=== PATIENT | female | born 1955 | race African-American/Black ===

== ENCOUNTER 2022-07-16 12:58 | Emergency (ER) | payer OTHER ==
--- OUTSIDE RECORDS SUMMARY | 2022-07-16 13:07 | XMS REPORT | Continuity of Care Document ---
:1955 Author Organization [facility] t Address [address] [place] [address] Care Team Providers Name Role Phone Pcp, Patient Does Not Have A Primary Care Physician [id number] Ivan Freitas Attending Clinician Unavailable Ruperto Castillo MD Attending Clinician Doctor Unassigned, [place] Attending Clinician Unavailable Only, Adc Test Attending Clinician Unavailable Octavio Adams MD Attending Clinician Radiology Attending Clinician Unavailable RADIOLOGY Attending Clinician Unavailable Ivan Freitas Admitting Clinician Unavailable Payers Payer Name Policy Type Policy Number Effective Date Expiration Date Jailene jeffries MEDICARE PART A [id number] 2006 \\T\\ B 00:00:00 MEDICAID OF [place] [id number] 2015 00:00:00 Problems Condition Condition Condition Status Onset Resolution Last Treating Co mments Source Name Details Category Date Date Treatment Clinician Date HLD HLD Disease Active Overview: Univer s (hyperlipi (hyperlipi 2-23 Formattin ity of demia) demia) 00:00: g of this [place] 00 note Medical might be Branch different from the original. 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 Allergic Allergic Disease Active Unive rs rhinitis rhinitis 2-23 ity of 00:00: [place] [id number] Medical Branch Insomnia Insomnia Disease Active Unive rs 2-23 ity of 00:00: [place] [address] Medical Branch Edema Edema Disease Active Univers 2-23 ity of 00:00: [place] [address] Medical Branch DM2 DM2 Disease Active Univers (diabetes (diabetes 2-23 [place] of mellitus, mellitus, [place] type [place] type 2[place] Subjective Subjective Disease Active U nivers tremor tremor 2-23 ity of 00:00: Medical Branch Tobacco Tobacco Disease Active Univers abuse abuse 2-23 ity of 00:00: Medical Branch Essential Essential Disease Active 2006-09 Uni vers hypertensi hypertensi 0-10 it y of [place], benign [place] Bronchitis Bronchitis Disease Active 2006-09 Overview : Univers 0-10 Formattin ity of 00:00: g of this note Medical might be Branch different from the original. 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 Clonidin Propensi Active Extra Univer s e ty to pyramidal 203 ity of adverse effects 00:00: [place] reaction 00 [facility] Social History Social Habit Start Date Stop Date Quantity Comments Source Exposure to Not sure [place] of SARS-CoV-2 (event) [facility] History of tobacco Cigarette Smoker University of use [facility] Alcohol intake 2018-07-21 2018-07-21 0 /d University of 00:00:00 00:00:00 [facility] Cigarette 2017-03-10 2017-03-10 University of pack-years 00:00:00 00:00:00 [facility] Tobacco use and 2017-03-10 2017-03-10 Never used Universit y of exposure 00:00:00 00:00:00 [facility] Tobacco Comment 2017-03-10 2017-03-10 says she quit 2 Univ ersity of 00:00:00 00:00:00 weeks ago [facility] Cigarettes smoked 2017-03-10 2017-03-10 Univers ity of current (pack per 00:00:00 00:00:00 ) - Reported Branch Sex Ass[birth year] At [birth year] Universit y of 00:00:00 00:00:00 [facility] Smoking Status Start Date Stop Date Source Smoker, current status 2017-03-10 00[facility] unknown Branch Medications Ordered Filled Start Stop Current Ordering Indication Dosage Frequency Signature Comments Components Source Medication Medication Date Date Medication? Clinician (SIG) Name Name folic 2017-09 Yes 1{tbl} Take 1 Univers acid/vit B 0-31 tablet by ity of complex and 20:09: mouth. [address] ([facility] ORAL) folic 2017-09 Yes 1{tbl} Take 1 Univers acid/vit B 0-31 tablet by ity of complex and 20:09: mouth. [address] ([facility] ORAL) folic 2017-09 Yes 1{tbl} Take 1 Univers acid/vit B 0-31 tablet by ity of complex and 20:09: mouth. [address] ([facility] ORAL) folic 2017-09 Yes 1{tbl} Take 1 Univers acid/vit B 0-31 tablet by ity of complex and 20:09: mouth. [address] ([facility] ORAL) folic 2017-09 Yes 1{tbl} Take 1 Univers acid/vit B 0-31 tablet by ity of complex and 20:09: mouth. [address] ([facility] ORAL) folic 2017-09 Yes 1{tbl} Take 1 Univers acid/vit B 0-31 tablet by ity of complex and 20:09: mouth. [address] ([facility] ORAL) isosorbide 2017-09 Yes 60mg Take 60 mg U nivers mononitrate 0-31 by mouth ity of (IMDUR) 60 19:49: daily. [place] mg 24 hr 19 Medical tablet Branch carvedilol 2017-09 Yes 25mg Take 25 mg U nivers (COREG) 25 0-31 by mouth 2 ity of mg tablet 19:49: (two) [place] [address] times Medical daily with Branch meals. aspirin 81 2017-09 Yes 81mg Take 81 mg U nivers mg tablet 0-31 by mouth ity of 19:49: daily. [place] [address] Medical Branch diazepam 2017-09 Yes 10mg Take 10 mg Uni vers (VALIUM) 10 0-31 by mouth ity of mg tablet 19:49: every [place] 19 evening. Medical Branch docusate 2017-09 Yes 100mg Take 100 Univ ers (COLACE) 0-31 mg by ity of 100 mg 19:49: mouth [place] capsule 19 daily. Medical Branch VIT B CMPLX 2017-09 Yes 1{tbl} Take 1 Tab Univers 3/FA/VIT 0-31 by mouth ity of C/BIOTIN 19:49: daily. [place] (DAQUAN-THADDEUS 19 Medical RX ORAL) Branch amLODIPine 2017-09 Yes 2.5mg Take 2.5 Un mayo 2.5 mg 0-31 mg by ity of tablet 19:49: mouth [place] 19 daily. Medical Branch ALBUTEROL 2017-09 Yes Inhale as Uni vers SULFATE 0-31 needed. ity of (PROAIR HFA 19:49: [place] INHALE) 19 Medical Branch isosorbide 2017-09 Yes 60mg Take 60 mg U nivers mononitrate 0-31 by mouth ity of (IMDUR) 60 19:49: daily. [place] mg 24 hr 19 Medical tablet Branch carvedilol 2017-09 Yes 25mg Take 25 mg U nivers (COREG) 25 0-31 by mouth 2 ity of mg tablet 19:49: (two) [place] [address] times Medical daily with Branch meals. aspirin 81 2017-09 Yes 81mg Take 81 mg U nivers mg tablet 0-31 by mouth ity of 19:49: daily. [place] Medical Branch diazepam 2017-09 Yes 10mg Take 10 mg Uni vers (VALIUM) 10 0-31 by mouth ity of mg tablet 19:49: every [place] 19 evening. Medical Branch docusate 2017-09 Yes 100mg Take 100 Univ ers (COLACE) 0-31 mg by ity of 100 mg 19:49: mouth [place] capsule 19 daily. Medical Branch VIT B CMPLX 2017-09 Yes 1{tbl} Take 1 Tab Univers 3/FA/VIT 0-31 by mouth ity of C/BIOTIN 19:49: daily. [place] (DAQUAN-THADDEUS 19 Medical RX ORAL) Branch amLODIPine 2017-09 Yes 2.5mg Take 2.5 Un mayo 2.5 mg 0-31 mg by ity of tablet 19:49: mouth [place] 19 daily. Medical Branch ALBUTEROL 2017-09 Yes Inhale as Uni vers SULFATE 0-31 needed. ity of (PROAIR HFA 19:49: [place] INHALE) 19 Medical Branch isosorbide 2017-09 Yes 60mg Take 60 mg U nivers mononitrate 0-31 by mouth ity of (IMDUR) 60 19:49: daily. [place] mg 24 hr 19 Medical tablet Branch carvedilol 2017-09 Yes 25mg Take 25 mg U nivers (COREG) 25 0-31 by mouth 2 ity of mg tablet 19:49: (two) [place] 19 times Medical daily with Branch meals. aspirin 81 2017-09 Yes 81mg Take 81 mg U nivers mg tablet 0-31 by mouth ity of 19:49: daily. [place] 19 Medical Branch diazepam 2017-09 Yes 10mg Take 10 mg Uni vers (VALIUM) 10 0-31 by mouth ity of mg tablet 19:49: every [place] 19 evening. Medical Branch docusate 2017-09 Yes 100mg Take 100 Univ ers (COLACE) 0-31 mg by ity of 100 mg 19:49: mouth [place] capsule 19 daily. Medical Branch VIT B CMPLX 2017-09 Yes 1{tbl} Take 1 Tab Univers 3/FA/VIT 0-31 by mouth ity of C/BIOTIN 19:49: daily. [place] (DAQUAN-THADDEUS 19 Medical RX ORAL) Branch amLODIPine 2017-09 Yes 2.5mg Take 2.5 Un mayo 2.5 mg 0-31 mg by ity of tablet 19:49: mouth [place] 19 daily. Medical Branch ALBUTEROL 2017-09 Yes Inhale as Uni vers SULFATE 0-31 needed. ity of (PROAIR HFA 19:49: [place] INHALE) 19 Medical Branch isosorbide 2017-09 Yes 60mg Take 60 mg U nivers mononitrate 0-31 by mouth ity of (IMDUR) 60 19:49: daily. [place] mg 24 hr 19 Medical tablet Branch carvedilol 2017-09 Yes 25mg Take 25 mg U nivers (COREG) 25 0-31 by mouth 2 ity of mg tablet 19:49: (two) [place] 19 times Medical daily with Branch meals. aspirin 81 2017-09 Yes 81mg Take 81 mg U nivers mg tablet 0-31 by mouth ity of 19:49: daily. [place] [address] Medical Branch diazepam 2017-09 Yes 10mg Take 10 mg Uni vers (VALIUM) 10 0-31 by mouth ity of mg tablet 19:49: every [place] 19 evening. Medical Branch docusate 2017-09 Yes 100mg Take 100 Univ ers (COLACE) 0-31 mg by ity of 100 mg 19:49: mouth [place] capsule 19 daily. Medical Branch VIT B CMPLX 2017-09 Yes 1{tbl} Take 1 Tab Univers 3/FA/VIT 0-31 by mouth ity of C/BIOTIN 19:49: daily. [place] (DAQUAN-THADDEUS 19 Medical RX ORAL) Branch amLODIPine 2017-09 Yes 2.5mg Take 2.5 Un mayo 2.5 mg 0-31 mg by ity of tablet 19:49: mouth [place] 19 daily. Medical Branch ALBUTEROL 2017-09 Yes Inhale as Uni vers SULFATE 0-31 needed. ity of (PROAIR HFA 19:49: [place] INHALE) 19 Medical Branch isosorbide 2017-09 Yes 60mg Take 60 mg U nivers mononitrate 0-31 by mouth ity of (IMDUR) 60 19:49: daily. [place] mg 24 hr 19 Medical tablet Branch carvedilol 2017-09 Yes 25mg Take 25 mg U nivers (COREG) 25 0-31 by mouth 2 ity of mg tablet 19:49: (two) [place] 19 times Medical daily with Branch meals. aspirin 81 2017-09 Yes 81mg Take 81 mg U nivers mg tablet 0-31 by mouth ity of 19:49: daily. [place] 19 Medical Branch diazepam 2017-09 Yes 10mg Take 10 mg Uni vers (VALIUM) 10 0-31 by mouth ity of mg tablet 19:49: every [place] 19 evening. Medical Branch docusate 2017-09 Yes 100mg Take 100 Univ ers (COLACE) 0-31 mg by ity of 100 mg 19:49: mouth [place] capsule 19 daily. Medical Branch VIT B CMPLX 2017-09 Yes 1{tbl} Take 1 Tab Univers 3/FA/VIT 0-31 by mouth ity of C/BIOTIN 19:49: daily. [place] (DAQUAN-THADDEUS 19 Medical RX ORAL) Branch amLODIPine 2017-09 Yes 2.5mg Take 2.5 Un mayo 2.5 mg 0-31 mg by ity of tablet 19:49: mouth [place] 19 daily. Medical Branch ALBUTEROL 2017-09 Yes Inhale as Uni vers SULFATE 0-31 needed. ity of (PROAIR HFA 19:49: [place] INHALE) 19 Medical Branch isosorbide 2017-09 Yes 60mg Take 60 mg U nivers mononitrate 0-31 by mouth ity of (IMDUR) 60 19:49: daily. [place] mg 24 hr 19 Medical tablet Branch carvedilol 2017-09 Yes 25mg Take 25 mg U nivers (COREG) 25 0-31 by mouth 2 ity of mg tablet 19:49: (two) [place] 19 times Medical daily with Branch meals. aspirin 81 2017-09 Yes 81mg Take 81 mg U nivers mg tablet 0-31 by mouth ity of 19:49: daily. [place] 19 Medical Branch diazepam 2017-09 Yes 10mg Take 10 mg Uni vers (VALIUM) 10 0-31 by mouth ity of mg tablet 19:49: every [place] 19 evening. Medical Branch docusate 2017-09 Yes 100mg Take 100 Univ ers (COLACE) 0-31 mg by ity of 100 mg 19:49: mouth [place] capsule 19 daily. Medical Branch VIT B CMPLX 2017-09 Yes 1{tbl} Take 1 Tab Univers 3/FA/VIT 0-31 by mouth ity of C/BIOTIN 19:49: daily. [place] (DAQUAN-THADDEUS 19 Medical RX ORAL) Branch amLODIPine 2017-09 Yes 2.5mg Take 2.5 Un mayo 2.5 mg 0-31 mg by ity of tablet 19:49: mouth [place] 19 daily. Medical Branch ALBUTEROL 2017-09 Yes Inhale as Uni vers SULFATE 0-31 needed. ity of (PROAIR HFA 19:49: [place] INHALE) 19 Medical Branch folic 2017-09 Yes 1{tbl} Take 1 Univers acid/vit B 0-31 tablet by ity of complex and 15:09: mouth. [place] C 43 Medical (DAQUAN-THADDEUS Branch ORAL) folic 2017-09 Yes 1{tbl} Take 1 Univers acid/vit B 0-31 tablet by ity of complex and 15:09: mouth. [facility] s C 43 Medical (DAQUAN-THADDEUS Branch ORAL) isosorbide 2017-09 Yes 60mg Take 60 mg U nivers mononitrate 0-31 by mouth ity of (IMDUR) 60 14:49: daily. [place] mg 24 hr 19 Medical tablet Branch carvedilol 2017-09 Yes 25mg Take 25 mg U nivers (COREG) 25 0-31 by mouth 2 ity of mg tablet 14:49: (two) [place] 19 times Medical daily with Branch meals. aspirin 81 2017-09 Yes 81mg Take 81 mg U nivers mg tablet 0-31 by mouth ity of 14:49: daily. [place] [address] Medical Branch diazepam 2017-09 Yes 10mg Take 10 mg Uni vers (VALIUM) 10 0-31 by mouth ity of mg tablet 14:49: every [place] 19 evening. Medical Branch docusate 2017-09 Yes 100mg Take 100 Univ ers (COLACE) 0-31 mg by ity of 100 mg 14:49: mouth [place] capsule 19 daily. Medical Branch VIT B CMPLX 2017-09 Yes 1{tbl} Take 1 Tab Univers 3/FA/VIT 0-31 by mouth ity of C/BIOTIN 14:49: daily. [place] (DAQUAN-THADDEUS 19 Medical RX ORAL) Branch amLODIPine 2017-09 Yes 2.5mg Take 2.5 Un mayo 2.5 mg 0-31 mg by ity of tablet 14:49: mouth [place] 19 daily. Medical Branch ALBUTEROL 2017-09 Yes Inhale as Uni vers SULFATE 0-31 needed. ity of (PROAIR HFA 14:49: [place] INHALE) 19 Medical Branch isosorbide 2017-09 Yes 60mg Take 60 mg U nivers mononitrate 0-31 by mouth ity of (IMDUR) 60 14:49: daily. [place] mg 24 hr 19 Medical tablet Branch carvedilol 2017-09 Yes 25mg Take 25 mg U nivers (COREG) 25 0-31 by mouth 2 ity of mg tablet 14:49: (two) [place] 19 times Medical daily with Branch meals. aspirin 81 2017-09 Yes 81mg Take 81 mg U nivers mg tablet 0-31 by mouth ity of 14:49: daily. [place] 19 Medical Branch diazepam 2017-09 Yes 10mg Take 10 mg Uni vers (VALIUM) 10 0-31 by mouth ity of mg tablet 14:49: every [place] 19 evening. Medical Branch docusate 2017-09 Yes 100mg Take 100 Univ ers (COLACE) 0-31 mg by ity of 100 mg 14:49: mouth [place] capsule 19 daily. Medical Branch VIT B CMPLX 2017-09 Yes 1{tbl} Take 1 Tab Univers 3/FA/VIT 0-31 by mouth ity of C/BIOTIN 14:49: daily. [place] (DAQUAN-THADDEUS 19 Medical RX ORAL) Branch amLODIPine 2017-09 Yes 2.5mg Take 2.5 Un mayo 2.5 mg 0-31 mg by ity of tablet 14:49: mouth [place] 19 daily. Medical Branch ALBUTEROL 2017-09 Yes Inhale as Uni vers SULFATE 0-31 needed. ity of (PROAIR HFA 14:49: [place] INHALE) 19 Medical Branch glipiZIDE Yes TK 1 T PO Uni vers XL 10 mg 24 9-27 QD ity of hr tablet 00:00: [place] Medical Branch glipiZIDE Yes TK 1 T PO Uni vers XL 10 mg 24 9-27 QD ity of hr tablet 00:00: [place] Medical Branch glipiZIDE Yes TK 1 T PO Uni vers XL 10 mg 24 9-27 QD ity of hr tablet 00:00: Medical Branch glipiZIDE Yes TK 1 T PO Uni vers XL 10 mg 24 9-27 QD ity of hr tablet 00:00: Medical Branch glipiZIDE Yes TK 1 T PO Uni vers XL 10 mg 24 9-27 QD ity of hr tablet 00:00: Medical Branch glipiZIDE Yes TK 1 T PO Uni vers XL 10 mg 24 9-27 QD ity of hr tablet 00:00: Medical Branch glipiZIDE Yes TK 1 T PO Uni vers XL 10 mg 24 9-27 QD ity of hr tablet 00:00: Medical Branch glipiZIDE Yes TK 1 T PO Uni vers XL 10 mg 24 9-27 QD ity of hr tablet 00:00: Medical Branch furosemide Yes TK 1 T PO Un mayo 40 mg 8-29 QD ity of tablet 00:00: [place] [facility] furosemide 2018-0 Yes TK 1 T PO Un mayo 40 mg 8-29 QD ity of tablet 00:00: [place] [facility] furosemide 2018-0 Yes TK 1 T PO Un mayo 40 mg 8-29 QD ity of tablet 00:00: [place] [facility] furosemide 2017-0 Yes TK 1 T PO Un mayo 40 mg 8-29 QD ity of tablet 00:00: [place] [facility] furosemide 2017- Yes TK 1 T PO Un mayo 40 mg 8-29 QD ity of tablet 00:00: [place] [facility] furosemide Yes TK 1 T PO Un mayo 40 mg 8-29 QD ity of tablet 00:00: [place] [facility] furosemide Yes TK 1 T PO Un mayo 40 mg 8-29 QD ity of tablet 00:00: [place] [facility] furosemide Yes TK 1 T PO Un mayo 40 mg 8-29 QD ity of tablet 00:00: [place] [facility] fluticasone 2014-0 Yes 2{spray Use 2 Un mayo (FLONASE) 5-20 } Sprays in ity o f 50 00:00: each [place] mcg/actuati 00 nostril Medic al on nasal daily. Branch spray fluticasone Yes 2{spray Use 2 Un mayo (FLONASE) 5-20 } Sprays in ity o f 50 00:00: each [place] mcg/actuati 00 nostril Medic al on nasal daily. Branch spray fluticasone 0 Yes 2{spray Use 2 Un [place]o (FLONASE) 5-20 } Sprays in ity o f 50 00:00: each [place] mcg/actuati 00 nostril Medic al on nasal daily. Branch spray fluticasone 0 Yes 2{spray Use 2 Un mayo (FLONASE) 5-20 } Sprays in ity o f 50 00:00: each [place] mcg/actuati 00 nostril Medic al on nasal daily. Branch spray fluticasone 0 Yes 2{spray Use 2 Un mayo (FLONASE) 5-20 } Sprays in ity o f 50 00:00: each [place] mcg/actuati 00 nostril Medic al on nasal daily. Branch spray fluticasone Yes 2{spray Use 2 Un mayo (FLONASE) 5-20 } Sprays in ity o f 50 00:00: each [place] mcg/actuati 00 nostril Medic al on nasal daily. Branch spray fluticasone Yes 2{spray Use 2 Un mayo (FLONASE) 5-20 } Sprays in ity o f 50 00:00: each [place] mcg/actuati 00 nostril Medic al on nasal daily. Branch spray fluticasone Yes 2{spray Use 2 Un mayo (FLONASE) 5-20 } Sprays in ity o f 50 00:00: each [place] mcg/actuati 00 nostril Medic al on nasal daily. Branch spray HYDROcodone 2013-09 Yes 1{tbl} Take 1 Tab Univers -acetaminop 2-04 by mouth ity of hen (NORCO) 00:00: every 8 Jv as 10-325 mg 00 (eight) Medical tablet hours. Branch HYDROcodone 2013-09 Yes 1{tbl} Take 1 Tab Univers -acetaminop 2-04 by mouth ity of hen (NORCO) 00:00: every 8 Jv as 10-325 mg 00 (eight) Medical tablet hours. Branch HYDROcodone 2013-09 Yes 1{tbl} Take 1 Tab Univers -acetaminop 2-04 by mouth ity of hen (NORCO) 00:00: every 8 Jv as 10-325 mg 00 (eight) Medical tablet hours. Branch HYDROcodone 2013-09 Yes 1{tbl} Take 1 Tab Univers -acetaminop 2-04 by mouth ity of hen (NORCO) 00:00: every 8 Jv as 10-325 mg 00 (eight) Medical tablet hours. Branch HYDROcodone 2013-09 Yes 1{tbl} Take 1 Tab Univers -acetaminop 2-04 by mouth ity of hen (NORCO) 00:00: every 8 Jv as 10-325 mg 00 (eight) Medical tablet hours. Branch HYDROcodone 2013-09 Yes 1{tbl} Take 1 Tab Univers -acetaminop 2-04 by mouth ity of hen (NORCO) 00:00: every 8 Jv as 10-325 mg 00 (eight) Medical tablet hours. Branch HYDROcodone 2013-09 Yes 1{tbl} Take 1 Tab Univers -acetaminop 2-04 by mouth ity of hen (NORCO) 00:00: every 8 Jv as 10-325 mg 00 (eight) Medical tablet hours. Branch HYDROcodone 2013-09 Yes 1{tbl} Take 1 Tab Univers -acetaminop 2-04 by mouth ity of hen (NORCO) 00:00: every 8 Jv as 10-325 mg 00 (eight) Medical tablet hours. Branch simvastatin Yes 10mg Take 1 Tab Univers (ZOCOR) 10 8-15 by mouth ity o f mg tablet 00:00: at [place] 00 bedtime. Medical Branch simvastatin Yes 10mg Take 1 Tab Univers (ZOCOR) 10 8-15 by mouth ity o f mg tablet 00:00: at [place] 00 bedtime. Medical Branch simvastatin Yes 10mg Take 1 Tab Univers (ZOCOR) 10 8-15 by mouth ity o f mg tablet 00:00: at [place] 00 bedtime. Medical Branch simvastatin Yes 10mg Take 1 Tab Univers (ZOCOR) 10 8-15 by mouth ity o f mg tablet 00:00: at [place] 00 bedtime. Medical Branch simvastatin Yes 10mg Take 1 Tab Univers (ZOCOR) 10 8-15 by mouth ity o f mg tablet 00:00: at [place] 00 bedtime. Medical Branch simvastatin Yes 10mg Take 1 Tab Univers (ZOCOR) 10 8-15 by mouth ity o f mg tablet 00:00: at [place] 00 bedtime. Medical Branch simvastatin Yes 10mg Take 1 Tab Univers (ZOCOR) 10 8-15 by mouth ity o f mg tablet 00:00: at [place] 00 bedtime. Medical Branch simvastatin Yes 10mg Take 1 Tab Univers (ZOCOR) 10 8-15 by mouth ity o f mg tablet 00:00: at [place] 00 bedtime. Medical Branch carisoprodo Yes 350mg Take 350 U nivers l (SOMA) 4-01 mg by ity of 350 mg 00:00: mouth [place] tablet 00 every 8 Medical (eight) Branch hours. carisoprodo Yes 350mg Take 350 U nivers l (SOMA) 4-01 mg by ity of 350 mg 00:00: mouth [place] tablet 00 every 8 Medical (eight) Branch hours. carisoprodo 2013-0 Yes 350mg Take 350 U nivers l (SOMA) 4-01 mg by ity of 350 mg 00:00: mouth [place] tablet 00 every 8 Medical (eight) Branch hours. carisoprodo 2013-0 Yes 350mg Take 350 U nivers l (SOMA) 4-01 mg by ity of 350 mg 00:00: mouth [place] tablet 00 every 8 Medical (eight) Branch hours. carisoprodo 2013-0 Yes 350mg Take 350 U nivers l (SOMA) 4-01 mg by ity of 350 mg 00:00: mouth [place] tablet 00 every 8 Medical (eight) Branch hours. carisoprodo 2013-0 Yes 350mg Take 350 U nivers l (SOMA) 4-01 mg by ity of 350 mg 00:00: mouth [place] tablet 00 every 8 Medical (eight) Branch hours. carisoprodo 2013-0 Yes 350mg Take 350 U nivers l (SOMA) 4-01 mg by ity of 350 mg 00:00: mouth [place] tablet 00 every 8 Medical (eight) Branch hours. carisoprodo 2012-0 Yes 350mg Take 350 U nivers l (SOMA) 4-01 mg by ity of 350 mg 00:00: mouth [place] tablet 00 every 8 Medical (eight) Branch hours. Vital Signs Vital Name Observation Time Observation Value Comments Source Systolic blood 2021-06-20 19:14:00 168 [facility] Diastolic blood 2021-06-20 19:14:00 78 [facility]Hg[facility] 2021-06-20 19:14:00 84 /min [facility] Body temperature 2021-06-20 19:14:00 36.78 Huong [facility] Respiratory rate 2021-06-20 19:14:00 18 /min [facility] Oxygen saturation in 2021-06-20 19:14:00 99 /min [facility] Arterial blood by [facility] Pulse oximetry Branch Body weight 2021-06-20 16:14:[address] [facility] BMI 2021-06-20 16:14:00 36.73 kg/m2 [facility] Procedures Procedure Date / Time Performing Clinician Source Performed [id number] 2021-11-11 00:00:00 VUPH [facility] [id number] 2021-11-08 00:00:00 VUPH [facility] [id number] 2021-11-06 00:00:00 VUPH [facility] [id number] 2021-11-05 00:00:00 VUPH [facility] [id number] 2021-11-05 00:00:00 ISSHU [facility] [id number] 2021-11-04 00:00:00 VUPH [facility] [id number] 2021-11-03 00:00:00 VUPH [facility] POCT GLUCOSE 2021-06-20 19:04:00 Ruperto Castillo [facility] (AUTOMATED) [facility] TROPONIN I 2021-06-20 17:03:00 Ruperto Castillo [facility] COMP. METABOLIC PANEL 2021-06-20 17:03:00 Ruperto Castillo [facility] ([id number]) [facility] PROTHROMBIN TIME / INR 2021-06-20 17:03:00 Ruperto Castillo [facility] ACTIVATED PARTIAL 2021-06-20 17:03:00 Ruperto Castillo [facility] THRMPLAS NEENA [facility] CBC WITH DIFF 2021-06-20 17:02:00 Ruperto Castillo [facility] COVID-19 (ID NOW RAPID 2021-06-20 17:02:00 Ruperto Castillo [facility] TESTING) [facility] LACTIC ACID WHOLE BLOOD 2021-06-20 17:01:00 Ruperto Castillo [facility] NOTICE OF PRIVACY 2021-06-20 15:46:14 Doctor Unassigned, No Univ [facility] PRACTICES Name Medical Branch CONSENT/REFUSAL FOR 2021-06-20 15:45:38 Doctor [facility]assigned, [facility] Name Medical Branch CT THORAX WO CONTRAST 2020-07-23 17:26:12 [facility] [place] [facility] WO 2020-07-02 15:28:37 [facility] 2020-07-02 14:59:10 Requisition, Paper Univ ersity [facility] XR KNEE 3 VW RIGHT 2020-07-02 13:53:51 Requisition, Paper Univer car[facility] ASSIGNMENT OF BENEFITS 2020-07-02 13:22:22 Doctor Unassigned, No [facility] Encounters Start End Encounter Admission Attending Care Care Encounter Source Date/Time Date/Time Type Type Clinicians Facility Department ID 2021-07-22 Emergency [facility] [id number] Univers 03:02:46 ity of [facility] 2021-11-04 2021-11-11 Inpatient EM [facility] [id number] [facility] 13:10:00 21:23:00 22 [facility] 2021-06-20 2021-06-20 Emergency Castillo, [facility] [id number] Univers 11:16:00 14:18:00 Ruperto Hawley [id number] i ty of [place] [id number] [place] [id number] [facility] 084 Branch 2021-06-20 2021-06-20 Orders Doctor MAYURI 1.2.840.114 [id number] Univers 00:00:00 00:00:00 Only Unassigned, IMER 350.1.13.10 ity of [place] [facility] 4.2.7.2.686 Jv as [phone] [facility] 009 Branch 2020-08-06 2020-08-06 Laboratory Only, Adc Test [facility] 1.2.840. 114 [id number] Univers 10:18:02 10:33:02 Only Octavio Adams 350.1.13.10 [place] [phone] [facility] 353 Branch 2020-08-06 2020-08-06 Outpatient R [facility] [id number] Univers 10:30:00 10:30:00 ity of [facility] 2020-07-23 2020-07-23 Hospital Radiology [facility] 1.2.840.114 [id number] Univers 10:58:11 23:59:00 Encounter [place] 350.1.13.10 it[place] [phone] [facility] 801 [address] 2020-07-23 2020-07-23 Outpatient R RADIOLOGY [facility] [id number] Univers 00:00:00 00:00:00 ity of [facility] 2020-07-18 2020-07-18 Outpatient R RADIOLOGY [facility] [id number] Univers 00:00:00 00:00:00 ity of [facility] 2020-07-16 2020-07-16 Outpatient R [facility] [id number] Univers 09:30:00 09:30:00 ity of [facility] 2020-07-02 2020-07-02 [facility] Radiology [facility] 1.2.840.114 [id number] Univers 08:28:21 23:59:00 Encounter [place] 350.1.13.10 [place] [phone] [facility] [address] [place] [address] 2020-07-02 2020-07-02 [facility] Radiology [facility] 1.2.840.114 [id number] Univers 08:28:00 08:28:00 Encounter [place] 350.1.13.10 ity of [place] [id number] [facility] [address] [place] [address] 2020-07-02 2020-07-02 [facility] Radiology [facility] 1.2.840.114 [id number] Univers 08:26:35 08:27:00 Encounter [place] 350.1.13.10 ity of [place] 4[place] [phone] [address] 2020-07-02 2020-07-02 Outpatient R RADIOLOGY [facility] [id number] Univers 00:00:00 00:00:00 ity of [facility] 2020-07-02 2020-07-02 Orders Doctor MAYURI 1.2.840.114 [id number] Univers 00:00:00 00:00:00 Only Unassigned, IMER 350.1.13.10 ity of [place] [facility] 4.2.7.2.686 [place]v as [phone] [place] [address] Branch Results Test Description Test Time Test Comments Results Result Comments Source GLUCOSE BEDSIDE 2021-11-11 17:19:00 Test Item Value Reference Range Interpretation Comme nts GLUCOSE BEDSIDE (test code = 241 MG/DL 70-110 H Performed by certified 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 [facility] GLUCOSE [id number] 10:54:00 Test Item Value Reference Range Interpretation Comments GLUCOSE BEDSIDE (test 157 MG/DL 70-110 H Perfor med by certified code = GLUBED) 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 [facility] GLUCOSE [id number] 07:58:00 Test Item Value Reference Range Interpretation Comments GLUCOSE BEDSIDE (test 172 MG/DL 70-110 H Perfor med by certified code = GLUBED) 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 [facility] GLUCOSE [id number] 19:45:00 Test Item Value Reference Range Interpretation Comments GLUCOSE BEDSIDE (test 314 MG/DL 70-110 H Perfor med by certified code = GLUBED) 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 [facility] GLUCOSE [id number] 17:28:00 Test Item Value Reference Range Interpretation Comments GLUCOSE BEDSIDE (test 242 MG/DL 70-110 H Perfor med by certified code = GLUBED) 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 [facility] GLUCOSE [id number] 11:52:00 Test Item Value Reference Range Interpretation Comments GLUCOSE BEDSIDE (test 213 MG/DL 70-110 H Perfor med by certified code = GLUBED) 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 [facility] GLUCOSE [id number] 08:09:00 Test Item Value Reference Range Interpretation Comments GLUCOSE BEDSIDE (test 178 MG/DL 70-110 H Perfor med by certified code = GLUBED) 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 [facility] GLUCOSE [id number] 19:29:00 Test Item Value Reference Range Interpretation Comments GLUCOSE BEDSIDE (test 281 MG/DL 70-110 H Perfor med by certified code = GLUBED) 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 [facility] GLUCOSE [id number] 17:26:00 Test Item Value Reference Range Interpretation Comments GLUCOSE BEDSIDE (test 272 MG/DL 70-110 H Perfor med by certified code = GLUBED) 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 [facility] GLUCOSE [id number] 11:53:00 Test Item Value Reference Range Interpretation Comments GLUCOSE BEDSIDE (test 227 MG/DL 70-110 H Perfor med by certified code = GLUBED) 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 [facility] GLUCOSE [id number] 08:01:00 Test Item Value Reference Range Interpretation Comments GLUCOSE BEDSIDE (test 238 MG/DL 70-110 H Perfor med by certified code = GLUBED) 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 [facility] BASIC METABOLIC [id number] 07:43:00 Test Item Value Reference Range Interpretation Comments SODIUM (test code = NA) 141 mEq/L 134-147 N POTASSIUM (test code = 4.1 mEq/L 3.4-5.0 N K) CHLORIDE (test code = 101 mEq/L 100-108 N CL) CARBON DIOXIDE (test 29 mEq/l 21-33 N code = CO2) ANION GAP (test code = 15 0-20 N GAP) GLUCOSE (test code = 251 mg/dL 70-110 H GLU) BLOOD UREA NITROGEN 40 mg/dL 7-18 H (test code = BUN) GLOMERULAR FILTRATION 9.5 80-90 L Units of measure = RATE (test code = GFR) ml/mi n/1.73 m2 CREATININE (test code = 5.4 mg/dL 0.6-1.3 H CREAT) CALCIUM (test code = 8.7 mg/dL 8.0-10.5 N CA) COMMENTS: Daily while receiving remdesivirHEPATIC FUNCTION [id number] 07:43:00 Test Item Value Reference Range Interpretation Comments TOTAL PROTEIN (test code = PROT) 6.3 g/dL 6.4-8.2 L ALBUMIN (test code = ALB) 2.90 g/dL 3.4-5.0 L BILIRUBIN TOTAL (test code = BILT) 0.60 mg/dL 0.0-1.0 N BILIRUBIN DIRECT (test code = 0.20 MG/DL 0.0-0.30 N BILD) SGOT/AST (test code = AST) 37 IUnit/L 15-37 N SGPT/ALT (test code = ALT) 19 IUnit/L 30-65 L ALKALINE PHOSPHATASE TOTAL (test 92 IUnit/L 20-125 N code = ALKP) BILIRUBIN INDIRECT (test code = 0.40 MG/DL BILIND) COMMENTS: Daily while receiving remdesivirCBC W/AUTO [id number] 07:38:00 Test Item Value Reference Range Interpretation Comments WHITE BLOOD CELL (test code = 4.8 x10 3/uL 4.5-11.0 N WBC) RED BLOOD CELL (test code = 4.13 x10 6/uL 3.54-5.02 N RBC) HEMOGLOBIN (test code = HGB) 12.0 g/dL 11.0-15.0 N HEMATOCRIT (test code = HCT) 39.2 % 33.0-45.0 N MEAN CELL VOLUME (test code = 94.9 fL 81.0-99.0 N MCV) MEAN CELL HGB (test code = MCH) 29.1 pg 27.0-33.0 N MEAN CELL HGB CONCETRATION 30.6 g/dL 33.0-37.0 L (test code = MCHC) RED CELL DISTRIBUTION WIDTH CV 14.4 % 11.5-14.5 N (test code = RDW) PLATELET COUNT (test code = 133 x10 3/uL 150-400 L PLT) NEUTROPHIL % (test code = NT%) 86.7 % 56.0-77.0 H LYMPHOCYTE % (test code = LY%) 7.4 % 14.0-32.0 L NEUTROPHIL # (test code = NT#) 4.13 x10 3/uL 2.0-7.6 N LYMPHOCYTE # (test code = LY#) 0.35 x10 3/uL 1.0-3.8 L MANUAL DIFF REQUIRED (test code NO = MDIFF) RED CELL DISTRIBUTION WIDTH SD 50.0 fL 37.0-54.0 N (test code = RDW-SD) MEAN PLATELET VOLUME (test code 12.8 fL 7.0-9.0 H = MPV) IMMATURE GRANULOCYTE % (test 0.4 % 0.0-2.0 N code = IG%) MONOCYTE % (test code = MO%) 5.5 % 4.8-9.0 N EOSINOPHIL % (test code = EO%) 0.0 % 0.3-3.7 L BASOPHIL % (test code = BA%) 0.0 % 0.0-2.0 N NUCLEATED RBC % (test code = 0.0 % 0-0 N NRBC%) IMMATURE GRANULOCYTE # (test 0.02 x10 3/uL 0.00-0.03 N code = IG#) MONOCYTE # (test code = MO#) 0.26 x10 3/uL 0.1-0.8 N EOSINOPHIL # (test code = EO#) 0.00 x10 3/uL 0.0-0.2 N BASOPHIL # (test code = BA#) 0.00 x10 3/uL 0.0-0.2 N NUCLEATED RBC # (test code = 0.00 x10 3/uL 0.0-0.1 N NRBC#) GLUCOSE [id number] 20:01:00 Test Item Value Reference Range Interpretation Comments GLUCOSE BEDSIDE (test 322 MG/DL 70-110 H Perfor med by certified code = GLUBED) 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 [facility] GLUCOSE [id number] 16:57:00 Test Item Value Reference Range Interpretation Comments GLUCOSE BEDSIDE (test 196 MG/DL 70-110 H Perfor med by certified code = GLUBED) 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 [facility] GLUCOSE [id number] 12:11:00 Test Item Value Reference Range Interpretation Comments GLUCOSE BEDSIDE (test 281 MG/DL 70-110 H Perfor med by certified code = GLUBED) 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 [facility] BASIC METABOLIC [id number] 08:22:00 Test Item Value Reference Range Interpretation Comments SODIUM (test code = NA) 137 mEq/L 134-147 N POTASSIUM (test code = 4.6 mEq/L 3.4-5.0 N K) CHLORIDE (test code = 97 mEq/L 100-108 L CL) CARBON DIOXIDE (test 27 mEq/l 21-33 N code = CO2) ANION GAP (test code = 17 0-20 N GAP) GLUCOSE (test code = 259 mg/dL 70-110 H GLU) BLOOD UREA NITROGEN 48 mg/dL 7-18 H (test code = BUN) GLOMERULAR FILTRATION 7.2 80-90 L Units of measure = RATE (test code = GFR) ml/mi n/1.73 m2 CREATININE (test code = 6.9 mg/dL 0.6-1.3 H CREAT) CALCIUM (test code = 7.6 mg/dL 8.0-10.5 L CA) COMMENTS: Daily while receiving remdesivirHEPATIC FUNCTION [id number] 08:22:00 Test Item Value Reference Range Interpretation Comments TOTAL PROTEIN (test code = PROT) 6.5 g/dL 6.4-8.2 N ALBUMIN (test code = ALB) 3.00 g/dL 3.4-5.0 L BILIRUBIN TOTAL (test code = BILT) 0.60 mg/dL 0.0-1.0 N BILIRUBIN DIRECT (test code = 0.20 MG/DL 0.0-0.30 BILD) BILIRUBIN INDIRECT (test code = 0.40 MG/DL BILIND) SGOT/AST (test code = AST) 26 IUnit/L 15-37 N SGPT/ALT (test code = ALT) 13 IUnit/L 30-65 L ALKALINE PHOSPHATASE TOTAL (test 92 IUnit/L 20-125 N code = ALKP) COMMENTS: Daily while receiving remdesivirGLUCOSE [id number] 08:10:00 Test Item Value Reference Range Interpretation Comments GLUCOSE BEDSIDE (test 233 MG/DL 70-110 H Perfor med by certified code = GLUBED) 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 [facility] CBC W/AUTO [id number] 08:02:00 Test Item Value Reference Range Interpretation Comments WHITE BLOOD CELL (test code = 5.6 x10 3/uL 4.5-11.0 N WBC) RED BLOOD CELL (test code = 3.97 x10 6/uL 3.54-5.02 N RBC) HEMOGLOBIN (test code = HGB) 11.5 g/dL 11.0-15.0 N HEMATOCRIT (test code = HCT) 37.8 % 33.0-45.0 N MEAN CELL VOLUME (test code = 95.2 fL 81.0-99.0 N MCV) MEAN CELL HGB (test code = MCH) 29.0 pg 27.0-33.0 N MEAN CELL HGB CONCETRATION 30.4 g/dL 33.0-37.0 L (test code = MCHC) RED CELL DISTRIBUTION WIDTH CV 14.6 % 11.5-14.5 H (test code = RDW) PLATELET COUNT (test code = 132 x10 3/uL 150-400 L PLT) NEUTROPHIL % (test code = NT%) 88.3 % 56.0-77.0 H LYMPHOCYTE % (test code = LY%) 7.0 % 14.0-32.0 L NEUTROPHIL # (test code = NT#) 4.92 x10 3/uL 2.0-7.6 N LYMPHOCYTE # (test code = LY#) 0.39 x10 3/uL 1.0-3.8 L MANUAL DIFF REQUIRED (test code NO = MDIFF) RED CELL DISTRIBUTION WIDTH SD 51.4 fL 37.0-54.0 N (test code = RDW-SD) MEAN PLATELET VOLUME (test code 11.2 fL 7.0-9.0 H = MPV) IMMATURE GRANULOCYTE % (test 0.4 % 0.0-2.0 N code = IG%) MONOCYTE % (test code = MO%) 4.3 % 4.8-9.0 L EOSINOPHIL % (test code = EO%) 0.0 % 0.3-3.7 L BASOPHIL % (test code = BA%) 0.0 % 0.0-2.0 N NUCLEATED RBC % (test code = 0.0 % 0-0 N NRBC%) IMMATURE GRANULOCYTE # (test 0.02 x10 3/uL 0.00-0.03 N code = IG#) MONOCYTE # (test code = MO#) 0.24 x10 3/uL 0.1-0.8 N EOSINOPHIL # (test code = EO#) 0.00 x10 3/uL 0.0-0.2 N BASOPHIL # (test code = BA#) 0.00 x10 3/uL 0.0-0.2 N NUCLEATED RBC # (test code = 0.00 x10 3/uL 0.0-0.1 N NRBC#) GLUCOSE [id number] 20:29:00 Test Item Value Reference Range Interpretation Comments GLUCOSE BEDSIDE (test 312 MG/DL 70-110 H Perfor med by certified code = GLUBED) 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 [facility] GLUCOSE [id number] 18:02:00 Test Item Value Reference Range Interpretation Comments GLUCOSE BEDSIDE (test 237 MG/DL 70-110 H Perfor med by certified code = GLUBED) 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 [facility] GLUCOSE [id number] 10:58:00 Test Item Value Reference Range Interpretation Comments GLUCOSE BEDSIDE (test 243 MG/DL 70-110 H Perfor med by certified code = GLUBED) 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 [facility] GLUCOSE [id number] 08:34:00 Test Item Value Reference Range Interpretation Comments GLUCOSE BEDSIDE (test 198 MG/DL 70-110 H Perfor med by certified code = GLUBED) 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 [facility] BASIC METABOLIC [id number] 07:57:00 Test Item Value Reference Range Interpretation Comments SODIUM (test code = NA) 138 mEq/L 134-147 N POTASSIUM (test code = 4.2 mEq/L 3.4-5.0 N K) CHLORIDE (test code = 102 mEq/L 100-108 N CL) CARBON DIOXIDE (test 25 mEq/l 21-33 N code = CO2) ANION GAP (test code = 15 0-20 N GAP) GLUCOSE (test code = 209 mg/dL 70-110 H GLU) BLOOD UREA NITROGEN 20 mg/dL 7-18 H (test code = BUN) GLOMERULAR FILTRATION 9.3 80-90 L Units of measure = RATE (test code = GFR) ml/mi n/1.73 m2 CREATININE (test code = 5.5 mg/dL 0.6-1.3 H CREAT) CALCIUM (test code = 8.7 mg/dL 8.0-10.5 CA) COMMENTS: Daily while receiving remdesivirHEPATIC FUNCTION [id number] 07:57:00 Test Item Value Reference Range Interpretation Comments TOTAL PROTEIN (test code = PROT) 7.0 g/dL 6.4-8.2 N ALBUMIN (test code = ALB) 3.20 g/dL 3.4-5.0 L BILIRUBIN TOTAL (test code = BILT) 0.80 mg/dL 0.0-1.0 BILIRUBIN DIRECT (test code = 0.30 MG/DL 0.0-0.30 BILD) BILIRUBIN INDIRECT (test code = 0.50 MG/DL BILIND) SGOT/AST (test code = AST) 32 IUnit/L 15-37 N SGPT/ALT (test code = ALT) 16 IUnit/L 30-65 L ALKALINE PHOSPHATASE TOTAL (test 93 IUnit/L 20-125 N code = ALKP) COMMENTS: Daily while receiving remdesivirCBC W/AUTO [id number] 06:57:00 Test Item Value Reference Range Interpretation Comments WHITE BLOOD CELL (test code = 4.9 x10 3/uL 4.5-11.0 WBC) RED BLOOD CELL (test code = 3.91 x10 6/uL 3.54-5.02 N RBC) HEMOGLOBIN (test code = HGB) 11.7 g/dL 11.0-15.0 N HEMATOCRIT (test code = HCT) 37.8 % 33.0-45.0 N MEAN CELL VOLUME (test code = 96.7 fL 81.0-99.0 N MCV) MEAN CELL HGB (test code = MCH) 29.9 pg 27.0-33.0 N MEAN CELL HGB CONCETRATION 31.0 g/dL 33.0-37.0 L (test code = MCHC) RED CELL DISTRIBUTION WIDTH CV 15.5 % 11.5-14.5 H (test code = RDW) RED CELL DISTRIBUTION WIDTH SD 54.7 fL 37.0-54.0 H (test code = RDW-SD) PLATELET COUNT (test code = 139 x10 3/uL 150-400 L PLT) MEAN PLATELET VOLUME (test code 11.4 fL 7.0-9.0 H = MPV) NEUTROPHIL % (test code = NT%) 87.4 % 56.0-77.0 H IMMATURE GRANULOCYTE % (test 0.2 % 0.0-2.0 N code = IG%) LYMPHOCYTE % (test code = LY%) 6.8 % 14.0-32.0 L MONOCYTE % (test code = MO%) 5.6 % 4.8-9.0 N EOSINOPHIL % (test code = EO%) 0.0 % 0.3-3.7 L BASOPHIL % (test code = BA%) 0.0 % 0.0-2.0 N NUCLEATED RBC % (test code = 0.0 % 0-0 N NRBC%) NEUTROPHIL # (test code = NT#) 4.24 x10 3/uL 2.0-7.6 N IMMATURE GRANULOCYTE # (test 0.01 x10 3/uL 0.00-0.03 N code = IG#) LYMPHOCYTE # (test code = LY#) 0.33 x10 3/uL 1.0-3.8 L MONOCYTE # (test code = MO#) 0.27 x10 3/uL 0.1-0.8 N EOSINOPHIL # (test code = EO#) 0.00 x10 3/uL 0.0-0.2 N BASOPHIL # (test code = BA#) 0.00 x10 3/uL 0.0-0.2 N NUCLEATED RBC # (test code = 0.00 x10 3/uL 0.0-0.1 N NRBC#) MANUAL DIFF REQUIRED (test code NO = MDIFF) GLUCOSE [id number] 19:32:00 Test Item Value Reference Range Interpretation Comments GLUCOSE BEDSIDE (test 303 MG/DL 70-110 H Perfor med by certified code = GLUBED) 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 [facility] GLUCOSE [id number] 15:56:00 Test Item Value Reference Range Interpretation Comments GLUCOSE BEDSIDE (test 334 MG/DL 70-110 H Perfor med by certified code = GLUBED) 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 [facility] GLUCOSE [id number] 12:14:00 Test Item Value Reference Range Interpretation Comments GLUCOSE BEDSIDE (test 275 MG/DL 70-110 H Perfor med by certified code = GLUBED) 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 [facility] GLUCOSE [id number] 08:01:00 Test Item Value Reference Range Interpretation Comments GLUCOSE BEDSIDE (test 167 MG/DL 70-110 H Perfor med by certified code = GLUBED) 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 [facility] BASIC METABOLIC [id number] 08:00:00 Test Item Value Reference Range Interpretation Comments SODIUM (test code = 142 mEq/L 134-147 N NA) POTASSIUM (test code = 4.2 mEq/L 3.4-5.0 N SPECI MEN 1+ K) HEMOLYZED.Resul ts known to be adv ersely affected by hem olysis are: Potassium Magnesium LDH Phosphorus CHLORIDE (test code = 103 mEq/L 100-108 N CL) CARBON DIOXIDE (test 25 mEq/l 21-33 code = CO2) ANION GAP (test code = 18 0-20 N GAP) GLUCOSE (test code = 214 mg/dL 70-110 H GLU) BLOOD UREA NITROGEN 38 mg/dL 7-18 H (test code = BUN) GLOMERULAR FILTRATION 8.0 80-90 L Units of measure = RATE (test code = GFR) ml/mi n/1.73 m2 CREATININE (test code 6.3 mg/dL 0.6-1.3 H = CREAT) CALCIUM (test code = 6.9 mg/dL 8.0-10.5 L CA) COMMENTS: Daily while receiving remdesivirHEPATIC FUNCTION [id number] 08:00:00 Test Item Value Reference Range Interpretation Comments TOTAL PROTEIN (test code = PROT) 6.1 g/dL 6.4-8.2 L ALBUMIN (test code = ALB) 2.70 g/dL 3.4-5.0 L BILIRUBIN TOTAL (test code = BILT) 0.60 mg/dL 0.0-1.0 N BILIRUBIN DIRECT (test code = 0.20 MG/DL 0.0-0.30 N BILD) BILIRUBIN INDIRECT (test code = 0.40 MG/DL BILIND) SGOT/AST (test code = AST) 45 IUnit/L 15-37 H SGPT/ALT (test code = ALT) 16 IUnit/L 30-65 L ALKALINE PHOSPHATASE TOTAL (test 79 IUnit/L 20-125 N code = ALKP) COMMENTS: Daily while receiving remdesivirCBC W/AUTO [id number] 07:58:00 Test Item Value Reference Range Interpretation Comments WHITE BLOOD CELL (test code = 2.6 x10 3/uL 4.5-11.0 L WBC) RED BLOOD CELL (test code = 3.44 x10 6/uL 3.54-5.02 L RBC) HEMOGLOBIN (test code = HGB) 10.3 g/dL 11.0-15.0 L HEMATOCRIT (test code = HCT) 32.9 % 33.0-45.0 L MEAN CELL VOLUME (test code = 95.6 fL 81.0-99.0 N MCV) MEAN CELL HGB (test code = MCH) 29.9 pg 27.0-33.0 N MEAN CELL HGB CONCETRATION 31.3 g/dL 33.0-37.0 L (test code = MCHC) RED CELL DISTRIBUTION WIDTH CV 15.2 % 11.5-14.5 H (test code = RDW) RED CELL DISTRIBUTION WIDTH SD 54.0 fL 37.0-54.0 N (test code = RDW-SD) PLATELET COUNT (test code = 125 x10 3/uL 150-400 L PLT) MEAN PLATELET VOLUME (test code 12.0 fL 7.0-9.0 H = MPV) NEUTROPHIL % (test code = NT%) 87.9 % 56.0-77.0 H IMMATURE GRANULOCYTE % (test 0.4 % 0.0-2.0 N code = IG%) LYMPHOCYTE % (test code = LY%) 7.8 % 14.0-32.0 L MONOCYTE % (test code = MO%) 3.9 % 4.8-9.0 L EOSINOPHIL % (test code = EO%) 0.0 % 0.3-3.7 L BASOPHIL % (test code = BA%) 0.0 % 0.0-2.0 N NUCLEATED RBC % (test code = 0.0 % 0-0 N NRBC%) NEUTROPHIL # (test code = NT#) 2.25 x10 3/uL 2.0-7.6 N IMMATURE GRANULOCYTE # (test 0.01 x10 3/uL 0.00-0.03 N code = IG#) LYMPHOCYTE # (test code = LY#) 0.20 x10 3/uL 1.0-3.8 L MONOCYTE # (test code = MO#) 0.10 x10 3/uL 0.1-0.8 N EOSINOPHIL # (test code = EO#) 0.00 x10 3/uL 0.0-0.2 N BASOPHIL # (test code = BA#) 0.00 x10 3/uL 0.0-0.2 N NUCLEATED RBC # (test code = 0.00 x10 3/uL 0.0-0.1 N NRBC#) MANUAL DIFF REQUIRED (test code NO = MDIFF) ACUTE HEPATITIS [id number] 04:09:00 Test Item Value Reference Range Interpretation Comments AB HEPATITIS A IGM (test NON REACTIVE INDEX NON REACT. code = HAVMAB) AG HEPATITIS B SURFACE NON REACTIVE INDEX NonReactive (test code = HBSAG) AB HEPATITIS B CORE IGM NON REACTIVE INDEX NON REACT. (test code = HBCMAB) AB HEPATITIS C (test code NON REACTIVE INDEX NON REACT. = HCVAB) AB HEPATITIS B [id number] 04:09:00 Test Item Value Reference Range Interpretation Comments AB HEPATITIS B 449.2 mIU/mL See_Comment Status of Im munity SURFACE (test code = Anti-HB s Level HBSAB) --- I nconsi stent with Immu nity 0.0 - 9.9Consis tent with Immunity >9.9Performed A t: HD [facility] [address] [id number] Yair Estrada MD Ph:[phone] [Automated mess age] The system [employer] generated this result transmitted ref erence range: Immunity >9.9. The reference r benson was not used to interpret this result as normal/abnor mal. GLUCOSE [id number] 21:13:00 Test Item Value Reference Range Interpretation Comments GLUCOSE BEDSIDE (test 149 MG/DL 70-110 H Perfor med by certified code = GLUBED) 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 [facility] HEPATIC FUNCTION [id number] 17:24:00 Test Item Value Reference Range Interpretation Comments TOTAL PROTEIN (test code = PROT) 6.6 g/dL 6.4-8.2 N ALBUMIN (test code = ALB) 3.00 g/dL 3.4-5.0 L BILIRUBIN TOTAL (test code = BILT) 0.60 mg/dL 0.0-1.0 N BILIRUBIN DIRECT (test code = 0.20 MG/DL 0.0-0.30 N BILD) BILIRUBIN INDIRECT (test code = 0.40 MG/DL BILIND) SGOT/AST (test code = AST) 38 IUnit/L 15-37 H SGPT/ALT (test code = ALT) 19 IUnit/L 30-65 L ALKALINE PHOSPHATASE TOTAL (test 88 IUnit/L 20-125 N code = ALKP) COMMENTS: Prior to remdesivir dosingGLOMERULAR FILTRATION [id number] 17:24:00 Test Item Value Reference Range Interpretation Comments GLOMERULAR FILTRATION 4.2 80-90 L Units of measure = RATE (test code = GFR) ml/mi n/1.73 m2 COMMENTS: Prior to remdesivir [id number] 17:24:00 Test Item Value Reference Range Interpretation Comments CREATININE (test code = CREAT) 11.0 mg/dL 0.6-1.3 H COMMENTS: Prior to remdesivir dosingPROTHROMBIN [id number] 16:57:00 Test Item Value Reference Range Interpretation Comments PROTHROMBIN TIME 11.9 SECONDS 9.3-12.9 N PATIENT (test code = PTP) INTERNATIONAL NORMAL 1.1 0.8-1.2 N TARGET INR BY RATIO (test code = INDICATIO N Indication INR) INR1. Prophylax is of venous thrombos is 2.0 - 3.0 (orthoped ic surgery), Proph ylaxis of venous throm bosis (other than hig h-risk surgery), Treat ment of Deep Vein Thrombosis/Pulm onary Embolism, Preve ntion of systemic emb olism - Tissue heart va lves, Acute Myocardia l Infarction (to prevent systemic emboli sm), Valvular heart disease, Atrial Fibrillation, Bileaflet mecha nical valve in aortic position.2. Mec hanical prosthetic valv es (high risk), 2. 5 - 3.5 Presence of Lup us Anticoagulant o r Antiphospholipi d Antibodies, Pre vention of systemic emb olism - Acute Myocardia l Infarction (to prevent recurrent infar ct). COMMENTS: Prior to remdesivir dosingGLUCOSE [id number] 16:51:00 Test Item Value Reference Range Interpretation Comments GLUCOSE BEDSIDE (test 147 MG/DL 70-110 H Perfor med by certified code = GLUBED) 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 [facility] GLUCOSE [id number] 11:38:00 Test Item Value Reference Range Interpretation Comments GLUCOSE BEDSIDE (test 132 MG/DL 70-110 H Perfor med by certified code = GLUBED) 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 [facility] GLUCOSE [id number] 09:26:00 Test Item Value Reference Range Interpretation Comments GLUCOSE BEDSIDE (test 90 MG/DL 70-110 N Perfor med by certified code = GLUBED) 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 [facility] [id number] 08:12:00 Test Item Value Reference Range Interpretation Comments HGBA1C% (test code = HGBA1C%) 5.3 %A1C 4.8-6.0 N COMPREHENSIVE METABOLIC [id number] 07:59:00 Test Item Value Reference Range Interpretation Comments SODIUM (test code = NA) 142 mEq/L 134-147 N POTASSIUM (test code = 3.8 mEq/L 3.4-5.0 K) CHLORIDE (test code = 107 mEq/L 100-108 N CL) CARBON DIOXIDE (test 19 mEq/l 21-33 L code = CO2) ANION GAP (test code = 20 0-20 N GAP) GLUCOSE (test code = 65 mg/dL 70-110 L GLU) BLOOD UREA NITROGEN 61 mg/dL 7-18 H (test code = BUN) GLOMERULAR FILTRATION 5.1 80-90 L Units of measure = RATE (test code = GFR) ml/mi n/1.73 m2 CREATININE (test code = 9.3 mg/dL 0.6-1.3 H CREAT) TOTAL PROTEIN (test 5.8 g/dL 6.4-8.2 L code = PROT) ALBUMIN (test code = 2.60 g/dL 3.4-5.0 L ALB) CALCIUM (test code = 6.1 mg/dL 8.0-10.5 LL Critica l result CA) called to [facility] at 07 57 11/05/21Nurse janie ruiz back result and tech confirmed it's correct? Y BILIRUBIN TOTAL (test 0.50 mg/dL 0.0-1.0 N code = BILT) SGOT/AST (test code = 39 IUnit/L 15-37 H AST) SGPT/ALT (test code = 17 IUnit/L 30-65 L ALT) ALKALINE PHOSPHATASE 74 IUnit/L 20-125 N TOTAL (test code = ALKP) [id number] 07:59:00 Test Item Value Reference Range Interpretation Comments PHOSPHOROUS (test code = PHOS) 6.3 MG/DL 2.5-4.9 H CBC W/AUTO [id number] 07:50:00 Test Item Value Reference Range Interpretation Comments WHITE BLOOD CELL (test code = 4.5 x10 3/uL 4.5-11.0 N WBC) RED BLOOD CELL (test code = 3.31 x10 6/uL 3.54-5.02 L RBC) HEMOGLOBIN (test code = HGB) 9.9 g/dL 11.0-15.0 L HEMATOCRIT (test code = HCT) 31.2 % 33.0-45.0 L MEAN CELL VOLUME (test code = 94.3 fL 81.0-99.0 N MCV) MEAN CELL HGB (test code = MCH) 29.9 pg 27.0-33.0 N MEAN CELL HGB CONCETRATION 31.7 g/dL 33.0-37.0 L (test code = MCHC) RED CELL DISTRIBUTION WIDTH CV 15.5 % 11.5-14.5 H (test code = RDW) RED CELL DISTRIBUTION WIDTH SD 53.8 fL 37.0-54.0 N (test code = RDW-SD) PLATELET COUNT (test code = 124 x10 3/uL 150-400 L PLT) MEAN PLATELET VOLUME (test code 11.6 fL 7.0-9.0 H = MPV) NEUTROPHIL % (test code = NT%) 80.2 % 56.0-77.0 H IMMATURE GRANULOCYTE % (test 0.7 % 0.0-2.0 N code = IG%) LYMPHOCYTE % (test code = LY%) 15.1 % 14.0-32.0 N MONOCYTE % (test code = MO%) 4.0 % 4.8-9.0 L EOSINOPHIL % (test code = EO%) 0.0 % 0.3-3.7 L BASOPHIL % (test code = BA%) 0.0 % 0.0-2.0 N NUCLEATED RBC % (test code = 0.0 % 0-0 N NRBC%) NEUTROPHIL # (test code = NT#) 3.57 x10 3/uL 2.0-7.6 N IMMATURE GRANULOCYTE # (test 0.03 x10 3/uL 0.00-0.03 N code = IG#) LYMPHOCYTE # (test code = LY#) 0.67 x10 3/uL 1.0-3.8 L MONOCYTE # (test code = MO#) 0.18 x10 3/uL 0.1-0.8 N EOSINOPHIL # (test code = EO#) 0.00 x10 3/uL 0.0-0.2 N BASOPHIL # (test code = BA#) 0.00 x10 3/uL 0.0-0.2 N NUCLEATED RBC # (test code = 0.00 x10 3/uL 0.0-0.1 N NRBC#) MANUAL DIFF REQUIRED (test code NO = MDIFF) GLUCOSE [id number] 00:50:00 Test Item Value Reference Range Interpretation Comments GLUCOSE BEDSIDE (test 82 MG/DL 70-110 N [facility] med by certified code = GLUBED) 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 [facility] CBC W/AUTO [id number] 00:08:00 Test Item Value Reference Range Interpretation Comments WHITE BLOOD CELL (test code = WBC) 6.1 K/uL 3.5-11.0 N RED BLOOD CELL (test code = RBC) 4.14 M/uL 3.54-5.02 N HEMOGLOBIN (test code = HGB) 12.6 GM/DL 11.0-15.0 N HEMATOCRIT (test code = HCT) 37.8 % 37.0-47.0 N MEAN CELL VOLUME (test code = MCV) 91.3 fL 81.0-99.0 N MEAN CELL HGB (test code = MCH) 30.4 pg 27.0-31.0 N MEAN CELL HGB CONCETRATION (test 33.3 GM/DL 33.0-37.0 N code = MCHC) RED CELL DISTRIBUTION WIDTH CV 15.9 % 11.5-14.5 H (test code = RDW) PLATELET COUNT (test code = PLT) 150 K/mm3 150-400 N MEAN PLATELET VOLUME (test code = 10.9 FL 8.8-13.1 N MPV) NEUTROPHIL % (test code = NT%) 84.5 % 40.0-76.0 H LYMPHOCYTE % (test code = LY%) 12.8 % 15.0-40.0 L MIXED % (test code = MX%) 2.7 % 3.0-15.0 L NEUTROPHIL # (test code = NT#) 5.1 K/uL 1.8-7.6 N LYMPHOCYTE # (test code = LY#) 0.8 K/uL 1.0-3.8 L MIXED # (test code = MX#) 0.2 k/mm3 0.1-0.8 N - CT ABD PELVIS W/O [id number] 00:00:00 [facility] POPEYE [facility]NALLY : 1955 Sex: F Name: POPEYE MCNALLY [facility] : 1955 Age/S: 66 / F [address] [facility] Unit #: [id number] Loc: [place] [address] Phys: Heber Rainey DO Acct: [id number] Dis Date: Status: ADMIN PHONE #: [phone] Exam Date: 11/05/2021 1311 FAX #: [phone] Reason: nausea/vomitting EXAMS: CPT CODE: [id number] CT ABD PELVIS W/O CONT 47710 PROCEDURE INFORMATION: Exam: CT Abdomen And Pelvis Without Contrast Exam date and time: 11/05/2021 1:11 PM Age: 66 years old Clinical indication: Nausea and vomiting; Additional info: Nausea/vomitting; dialysis patient TECHNIQUE: Imaging protocol: Computed tomography of the abdomen and pelvis without contrast. Radiation optimization: [facility] use at least one of these dose optimization techniques: automated exposure control; mA and/or kV adjustment per patient size (includes targeted exams where dose is matched to clinical indication); or iterative reconstruction. COMPARISON: Chest single view 11/04/2021 FINDINGS: Limitations: Assessment of the viscera and vasculature may be limited by the lack of intravenous contrast. Lungs: There are extensive indistinct ground-glass and moderate attenuation airspace opacities in the visualized lung bases. Pleural spaces: There are trace bilateral pleural effusions. Heart: There are calc ifications in the visualized coronary arteries. Liver: Unremarkable. Gallbladder and bile ducts: There has been a cholecystectomy. Pancreas: Unremarkable. Spleen: Unremarkable. Adrenal glands: Thickening of the left adrenal up to 16 mm, indeterminate attenuation of 30-40 Hounsfield units. The right adrenal is unremarkable. Kidneys and ureters: The kidneys are atrophic compatible with ESRD. There are multiple water attenuation simple cortical cysts bilateral. Extensive renal calcifications. There is no hydronephrosis or perinephric fluid collection. Stomach and bowel: The stomach is moderately distended with fluid, otherwise unremarkable. The small bowel is unremarkable. There are colonic diverticula, more numerous in the sigmoid colon. No regional inflammatory changes. Appendix: A normal appendixis identified. Intraperitoneal space: There is no free intraperitoneal fluid or air. No focal fluid collection. Vasculature: Extensive calcified plaque in the abdominal aorta and branch vessels. No aneu rysm. Lymph nodes: Unremarkable. PAGE 1 Signed Report (CONTINUED) Name: POPEYE MCNALLY [facility] : 1955 Age/S: 66 / F [address] [place] [address] Unit #: [id number] Loc: [place] [address] Phys: Heber Rainey DO Acct: [id number] Dis Date: Status: ADM IN PHONE #: [phone] Exam Date: 11/05/2021 1311 FAX #: [phone] Reason: nausea/vomitting EXAMS: CPT CODE: [id number] CT ABD PELVIS W/O CONT 56674 (Continued) Urinary bladder: Unremarkable as visualized. Reproductive: Unremarkableas visualized. Bones/joints: The lumbar spine demonstrates moderate degenerative changes at multiplelevels. Soft tissues: Fat containing supraumbilical hernia. No herniation of bowel. There is generalized subcutaneous edema. No focal fluid collection. IMPRESSION: 1. Extensive bilateral pulmonary opacities with multifocal areas of consolidation compatible with acute pneumonia, viral versus other infectious and noninfectious etiologies. Commonly reported imaging features of COVID-19 pneumonia are pres ent. Other processes such as influenza pneumonia and organizing pneumonia, as can be seen with drug toxicity and connective tissue disease, can cause a similar imaging pattern. (Reference: Carlos) 2. The stomach is moderately distended with fluid. There is no evidence for bowel obstruction. 3. Colonic diverticulosis. 4. Severe atherosclerosis. 5. Atrophic kidneys containing multiple simple cortical cyst compatible with end-stage renal disease. 6. Incidental finding of left adrenal thickening, indeterminate by attenuation values.Consider 12 month follow-up adrenal CT. (Reference: Liban) REFEREN JOSE LUIS: 1. Carlos Dent, et al., Radiological Society of [place] Expert Consensus Statement on Reporting Chest CT Findings Related to COVID-19. Endorsed by the Society of Thoracic Radiology, the [place] [employer], and RSNA. Published December 13, 2019. 2. Liban PIERCE, et al. Management of In cidental Adrenal Masses: A White Paper of the ACR Incidental Findings Committee. J Am Loren Radiol. 2017;14(8):9635-0544. at 1341 Reported and signed by: Kev Richardson M.D. CC: Ivan Freitas MD; Heber Rainey DO Technologist:RT Fely(R)(CT) CTDI: DLP: Trnscb Date/Time: 11/05/2021 (1341) Rivas Orig Print D/T: S: 11/05/2021 (1341) PAGE 2 Signed Report- NAA ISBELL [id number] 00:00:00 [facility] JATIN CORNEJOName: POPEYE MCNALLY : 1955 Sex: F Name: POPEYE MCNALLY [facility] Jatin Cornejo : 1955 Age/S: 66 / F [address] [place] [address] Bl Unit #: [id number] Loc: [place] [address] Phys: Daniel Rahman MD Acct: [id number] Dis Date: Status: ADMIN PHONE #: [phone] Exam Date: 11/05/2021233 FAX #: [phone] Reason: TO RULE OUT DVT EXAMS: CPT CODE: [id number] DUP VEIN JOSEY 71827 PROCEDURE INFORMATION: Exam: US Duplex Lower Extremity Veins, Bilateral Exam date and time: 11/05/2021 1:59 AM Age: 66 years old Clinical indication: Other: Covid, hypoxia; Additional info: To rule out dvt TECHNIQUE: Imaging protocol: Real-time Duplex ultrasound of the bilateral extremities with 2-D del castillo scale, color Doppler flow and spectral waveform analysiswith image documentation. Complete exam focused on the bilateral lower extremity veins. COMPARISON: No relevant prior studies available. FINDINGS: Right deep veins: The common femoral, femoral, popliteal veins and imaged calf veins are patent without thrombus. Normal Doppler waveforms. Normal compressibility and/or augmentation response. Right superficial veins: Saphenofemoral junction is patent without thrombus. Left deep veins: The common femoral, femoral, popliteal veins and imaged calf veins are patent without thrombus. Normal Doppler waveforms. Normal compressibility and/or augmentation response. Left superficial veins: Saphenofemoral junction is patent without thrombus. Soft tissues: No flui d collections. IMPRESSION: No evidence for acute DVT of either lower extremity. at 0242 Reported and signed by: Rad Noel M.D. CC: Daniel Rahman MD; Ivan Freitas MD Technologist: Eugenia Downey RDMS(AB)(OB) Trnscb Date/Time: 11/05/2021 (241) CharAM34 Orig Print D/T: S: 11/05/2021 (242) Probe: PAGE 1 Signed Report- CT HEAD/BRAIN W/O [id number] 00:00:00 [facility] AZ[facility]: POPEYE MCNALLY : 1955 Sex: F Name: POPEYE MCNALLY [facility] : 1955 Age/S: 66 / F [address] [place] [address] Blvd Unit #: [id number] Loc: [place] [address] Phys: Daniel Rahman MD Acct: [id number] Dis Date: Status: ADMIN PHONE #: [phone] Exam Date: 11/05/2021350 FAX #: [phone] Reason: h/o confusion. EXAMS: CPT CODE: [id number] CT HEAD/BRAIN W/O CONT 97773 PROCEDURE INFORMATION: Exam: CT Head Without Contrast Exam date and time: 11/05/2021 3:45 AM Age: 66 years old Clinical indication: Altered mental status/memory loss; Confusion or disorientation; Additional info: H/o confusion. TECHNIQUE: Imaging protocol: Computed tomography of the head without contrast. Radiation optimization: All CT scans at this facility use at least one of these dose optimization techniques: automated exposure control; mA and/orkV adjustment per patient size (includes targeted exams where dose is matched to clinical indication); or iterative reconstruction. COMPARISON: No relevant prior studies available. FINDINGS: Limitations: Mildly limited examination secondary to motion and scatter artifact. Brain: Mild diffuse age-appropriate cerebral atrophy associated with mild nonspecific periventricular low attenuation most consistent with old microangiopathic ischemic change. No acute intracranial hemorrhage, extra-axial fluid collection, mass effect or midline shift. Prominent dural base calcification or ossification along thefalx cerebri. Heterogeneous somewhat geographic low attenuation in the marleny most consistent with artifact. Cerebral ventricles: No ventriculomegaly. Paranasal sinuses: Mild mucoperiosteal thickening inthe right maxillary sinus. The remaining paranasal sinuses are well aerated. Mastoid air cells: Visualized mastoid air cells are clear without effusion. Bones/joints: No acute fracture or dislocation. Soft tissues: No significant abnormality. IMPRESSION: 1. Mildly limited examination secondary to motion and scatter artifact. 2. Mild diffuse cerebral atrophy associated with mild old microangiopathic change. 3. No acute intracranial abnormality. 4. Mild chronic sinusitis. PAGE 1 Signed Report (CONTINUED) Name: POPEYE MCNALLY [facility] : 1955 Age/S: 66 / F [address] [place] [address] Blvd Unit #: [id number] Loc: [place] [address] Phys: Daniel Rahman MD Acct: [id number] Dis Date: Status: ADM IN PHONE #: [phone] Exam Date: 11/05/2021350 FAX #: [phone] Reason: h/o confusion. EXAMS: CPT CODE: [id number] CT HEAD/BRAIN W/O CONT 58525 (Continued) at 0407 Reported and signed by: Donald Jackson M.D. CC: Daniel Rahman MD; Ivan Freitas MD Technologist:RT Syed(R) CTDI: DLP: Trnscb Date/Time: 11/05/2021 (406) CharTP6 Orig Print D/T: S: 11/05/2021 (406) PAGE 2 Signed ReportBASIC METABOLIC [id number] 21:46:00 Test Item Value Reference Range Interpretation Comments SODIUM (test code = 137 mEq/L 134-147 N NA) POTASSIUM (test code = 5.5 mEq/L 3.4-5.0 H K) CHLORIDE (test code = 103 mEq/L 100-108 N CL) CARBON DIOXIDE (test 16 mEq/l 21-33 L code = CO2) ANION GAP (test code = 24 0-20 H GAP) GLUCOSE (test code = 93 mg/dL 70-110 N GLU) BLOOD UREA NITROGEN 120 mg/dL 7-18 H (test code = BUN) GLOMERULAR FILTRATION 3.2 80-90 L Units of measure = RATE (test code = GFR) ml/mi n/1.73 m2 CREATININE (test code 13.8 mg/dL 0.6-1.3 H = CREAT) CALCIUM (test code = 4.7 mg/dL 8.0-10.5 LL Critica l result CA) called to Leandro STOCK [id number] at 214 3 11/04/21Nurse r ead back result and tech confirmed it's correct? Y LACTIC DEHYDROGENASE(LDH)2021-11-04 21:46:00 Test Item Value Reference Range Interpretation Comments LACTIC DEHYDROGENASE(LDH) (test 384 IUnits/L 84-246 H code = LDH) [id number] 21:46:00 Test Item Value Reference Range Interpretation Comments FERRITIN (test code = JARETH) 2847.4 ng/mL 11.0-306.8 H [id number] 21:22:00 Test Item Value Reference Range Interpretation Comments D-DIMER (test 2100 ng/mlFEU See_Comment HH Critical resu lt called to code = TAWNYA FORBES by Maria MOMIN at [facility]) 212011/04/21Nu rse read back result and tech confirmed it's correct?Y THROMBOSIS AND/ OR PULMONARY EMBOLISM AND TH E CLINICAL CUT- OFF VALUE FOR EXCLUSION (500 ng/mL FEU) OF THESE CONDIT IONSIS VALIDATED BY TH E MEMBERSHIP CORRESPONDENT OF THE METHOD. A NEGATIVE D-DI LEV RESULT WHEN COMBINED W ITH A CLINICALASSESSM ENT OF LOW PRETEST PROBABI LITY HAS BEEN SHOWN TO H AVEA HIGH NEGATIVE PREDIC TIVE VALUE OF DVT OR PE. D -DIMER VALUES >500 ng/ mL FEU ARE NOT DIAGNOSTIC FOR DVT, PEor DIC WITHOU T OTHER CONFIRMATORY TE STS AND APPROPRIATECLIN ICAL EUALUATIONS. [A utomated message] The Outsmart stem which generated this result transmitted ref erence range: <=500. T he reference range was not u sed to interpret this result as normal/abnormal . C REACTIVE [id number] 21:17:00 Test Item Value Reference Range Interpretation Comments C REACTIVE PROTEIN (test code = 125.0 mg/L <10.0 H CRP) LACTIC [id number] 21:12:00 Test Item Value Reference Range Interpretation Comments LACTIC ACID (test code = LACT) 0.5 mmol/L 0.4-1.9 N CBC W/AUTO [id number] 21:04:00 Test Item Value Reference Range Interpretation Comments WHITE BLOOD CELL (test code = 5.4 x10 3/uL 4.5-11.0 N WBC) RED BLOOD CELL (test code = 3.63 x10 6/uL 3.54-5.02 N RBC) HEMOGLOBIN (test code = HGB) 10.8 g/dL 11.0-15.0 L HEMATOCRIT (test code = HCT) 34.0 % 33.0-45.0 N MEAN CELL VOLUME (test code = 93.7 fL 81.0-99.0 N MCV) MEAN CELL HGB (test code = MCH) 29.8 pg 27.0-33.0 N MEAN CELL HGB CONCETRATION 31.8 g/dL 33.0-37.0 L (test code = MCHC) RED CELL DISTRIBUTION WIDTH CV 15.3 % 11.5-14.5 H (test code = RDW) PLATELET COUNT (test code = 132 x10 3/uL 150-400 L PLT) NEUTROPHIL % (test code = NT%) 76.9 % 56.0-77.0 N LYMPHOCYTE % (test code = LY%) 18.1 % 14.0-32.0 N NEUTROPHIL # (test code = NT#) 4.16 x10 3/uL 2.0-7.6 N LYMPHOCYTE # (test code = LY#) 0.98 x10 3/uL 1.0-3.8 L MANUAL DIFF REQUIRED (test code NO = MDIFF) RED CELL DISTRIBUTION WIDTH SD 52.6 fL 37.0-54.0 N (test code = RDW-SD) MEAN PLATELET VOLUME (test code 10.5 fL 7.0-9.0 H = MPV) IMMATURE GRANULOCYTE % (test 0.2 % 0.0-2.0 N code = IG%) MONOCYTE % (test code = MO%) 4.6 % 4.8-9.0 L EOSINOPHIL % (test code = EO%) 0.0 % 0.3-3.7 L BASOPHIL % (test code = BA%) 0.2 % 0.0-2.0 N NUCLEATED RBC % (test code = 0.0 % 0-0 N NRBC%) IMMATURE GRANULOCYTE # (test 0.01 x10 3/uL 0.00-0.03 N code = IG#) MONOCYTE # (test code = MO#) 0.25 x10 3/uL 0.1-0.8 N EOSINOPHIL # (test code = EO#) 0.00 x10 3/uL 0.0-0.2 N BASOPHIL # (test code = BA#) 0.01 x10 3/uL 0.0-0.2 N NUCLEATED RBC # (test code = 0.00 x10 3/uL 0.0-0.1 N NRBC#) LIPOPROTEIN [id number] 15:05:00 Test Item Value Reference Range Interpretation Comments LIPOPROTEIN LDL 54.6 mg/dL 0-100 N <100 OPTIMAL 100-129 NEAR (test code = LDL) OPTIMAL/AB OVE [id number] 89 HIGH>LV=951 KATIA Y HIGH*Guidelines provided by the National Cholesterol EducationProgra m Adult Treatment Panel III TROP-I HIGH [id number] 14:40:00 Test Item Value Reference Range Interpretation Comments TROP-I HIGH 81 ng/L 0-34 H CAUTION: Units of the SENSITIVITY (test current te st methodology code = TROPIHS) (ng/L) diffe rfrom the prior test methodolog y (ng/mL) by a factor of 1000. 99th Percentile Upper Reference Limit (URL): Females: 34 ng/LMales: 54 n g/L In order to distinguish acute elevations of h igh sensitivitytrop onin from other clinical conditions, the FourthUnive rsal Definition of M yocardial Infarction stre ssesclinical assessment and the demonstration o f a rise and/orfall in s erial troponin result s above the URL. These resu lts were obtained using Siemens Atellica IM TnI Hreagent. Results from di fferent methodologies s hould not becompared to o ne another as quantitative results and URLs mayvary by method. 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 TROPIRA) VvbQeyqr-ng-Tpa e test, critical value notification anddocumentatio n is done by nursing staff. Negative: <= 0.08 Positive: >= 0.09An elevated tropon in value alone is not miranda fficient todiagnose a my ocardial infarction. Rat her, the patient sclinic al presentation (h istory, physical exam) and ECGshould be us ed in conjunction wit h troponin in thediagnosti c evaluation of suspected my ocardial infarction. Ase rial sampling protoc ol is recommended to facilitate the identificat ion of temporal change s in troponin levels characteristic of [place]. Coronavirus 2019 nCoV [id number] 10:53:00 Test Item Value Reference Range Interpretation Comments Coronavirus 2018 Positive Negative A Performed b y certified nCoV Bedside (tester sound at [facility] code = CtrThe [facility] I D NOW [id number]) utilizes isoth ermal Nicking EnzymeAmplifica tion Reaction (NEAR) technology in the qualitat ivedetection of infectious d iseases. With NEAR technology,ampl ified target detection is ac hieved with the use offluor escently labeled molecul ar beacons, comparable to P CRtechniques -----Negative r esults should be treat ed as presumptive and , ifinconsistent with clinical signs and symptoms or necessaryfor patient management, nuvia uld be tested with an alternativemole cular assay. Negative result s do not preclude LTYR-KyQ-2cqhne tion and should not be u sed as the sole basis forp atient management deci sions. Negative result s should beconsidered in the context of a patient's recent exposures,histo ry, presence of clinical sig ns and symptoms consis tentwith COVID-19. BASIC METABOLIC [id number] 10:49:00 Test Item Value Reference Range Interpretation Comments SODIUM (test code = NA/ABG) 134 MEQ/L 134-147 N POTASSIUM (test code = K/ABG) 5.7 MEQ/L 3.4-5.0 H CHLORIDE (test code = CL/ABG) 107 MEQ/L 100-108 N CREATININE ABG (test code = > 15.0 mg/dL 0.6-1.0 H CREAABG) POC IONIZED CALCIUM (test code = 0.64 MMOL/L 1.12-1.32 L POCCA) POC GLUCOSE (test code = POCGLU) 166 MG/DL - XR CHEST 1 [id number] 00:00:00 [facility] : 1955 Sex: F FAX: Anthony Shaikh MD [place]: [address]: PRE Name: POPEYE MCNALLY FSED : 1955 Age/S: 66/F [address] [facility] Unit #: [id number] Loc: [place] [address] Phys: Anthony Leon MD Acct: [id number] Dis Date: Status: PRE ER PHONE #: Exam Date: 11/04/2021 1020 FAX #: Reason: Weakness EXAMS: CPT CODE:[id number] XR CHEST 1 V 90702 PROCEDURE INFORMATION: Exam: XR Chest Exam date and time: 11/04/2021 10:25 AM Age: 66 years old Clinical indication: Wheezing; Prior surgery; Surgery date: 1-6 months; Surgery type: Dialysis; Additional info: Weakness TECHNIQUE: Imaging protocol: XR of the chest. Views: 1view. COMPARISON: No relevant prior studies available. FINDINGS: Lungs: Bilateral right greater thanleft patchy airspace opacities. Pleural spaces: No pleural effusion. No pneumothorax. Heart/Mediastinum: Heart size is mildly enlarged. Aortic calcifications. Bones/joints: No acute osseous abnormality. Soft tissues: Right upper extremity vascular stents noted. IMPRESSION: 1. Patchy bilateral pulmonary opacities. Differential considerations include edema and multifocal pneumonia. at 1054 Reported and signed by: Alisa Moreno M.D. CC: Jhony COLLINS Technologist: Jyotsna Knight RT(R)(CT) Trnscrd Date/Time/By: 11/04/2021 (7850) : By: Cherelle DasilvaRH17 Orig Print D/T: S: 11/04/2021 (3331) PAGE 1 Signed ReportPOCT GLUCOSE (AUTOMATED)2021-06-20 19:09:24 Test Item Value Reference Range Interpretation Comments POCT GLU (test code = 2399472792) 93 mg/dL 70-110 Lab Interpretation (test code = Normal 38818-1) [facility]. METABOLIC PANEL (64743)2021-06-20 18:00:24 Test Item Value Reference Range Interpretation Comments NA (test code = 139 mmol/L 135-145 4538178869) K (test code = 3.1 mmol/L 3.5-5.0 L 3934543107) CL (test code = 102 mmol/L 98-108 2496211310) CO2 TOTAL (test code = 26 mmol/L 23-31 3390316369) AGAP (test code = 2-16 4030085551) BUN (test code = 29 mg/dL 7-23 H 6442055740) GLUCOSE (test code = 41 mg/dL 70-110 LL 2703891626) CREATININE (test code = 7.61 mg/dL 0.50-1.04 H 3846450130) TOTAL BILI (test code = 1.0 mg/dL 0.1-1.2 1499354675) CALCIUM (test code = 9.5 mg/dL 8.6-10.6 3442813787) T PROTEIN (test code = 7.3 g/dL 6.3-8.2 0962549831) ALBUMIN (test code = 4.1 g/dL 3.5-5.0 3027682649) ALK PHOS (test code = 85 U/L 34-122 9041331703) ALTv (test code = 16 U/L 5-35 1742-6) AST(SGOT) (test code = 35 U/L 13-40 8987856613) eGFR (test code = mL/min/1.73m2 7446111713) CEZAR (test code = CEZAR) Association of Glomerular Filtration Rate (GFR) and Staging of Kidney Disease* + --+ --+ ------+| GFR (mL/min/1.73 m2) ?| With Kidney Damage ?| ?Without Kidney Damage+ --------+ --------+ +| ?>90 ?| ?Stage one ?| ? Normal ?+ ---+ ---+ -------+| ?60-89 ?| ?Stage two ?| ? Decreased GFR ? + --+ --+ ------+| ?30-59 ?| ?Stage three ?| ? Stage three ? + --+ --+ ------+| ?15-29 ?| ?Stage four ? | ? Stage four ?+ ---+ ---+ -------+| ?<15 (or dialysis) ? ?| ?Stage five ? | ? Stage five ?+ ---+ ---+ -------+ *Each stage assumes the associated GFR level has been in effect for at least three months. ?Stages 1 to 5, with or without kidney disease, indicate chronic kidney disease. Notes: Determination of stages one and two (with eGFR >59mL/min/1.73 m2) requires estimation of kidney damage for at least three months as defined by structural or functional abnormalities of the kidney, manifested by either:Pathological abnormalities or Markers of kidney damage (including abnormalities in the composition of the blood or urine or abnormalities in imaging tests). Lab Interpretation Abnormal (test code = 99562-9) [facility] [id number] 17:53:17 Test Item Value Reference Interpretation Comments Range TROPONIN I (test 0.031 ng/mL See_Comment [Automated code = [id number]) message] The system which generated this result transmitted reference range : <=0.034. The reference range was not used to interpret this result as normal/abnormal . CEZAR (test code = Reference (Normal) CEZAR) Range (defined by the 99th percentile reference limit): <= 0.034 ng/mL Note: Cardiac troponin begins to rise 3-4 hours after the onset of ischemia. Repeat in 4-6 hours if the sample was drawn within 3-4 hours of the onset of the symptom and found normal. Diagnosis of myocardial injury is made with acute changes in cTn concentrations with at least one serial sample above the 99th percentile upper reference limit (URL), taken together with the patient's clinical presentation. Biotin has been reported to cause a negative bias, interpret results relative to patient's use of biotin. Lab Interpretation Normal (test code = 63412-2) [facility] [id number] 17:49:55 Test Item Value Reference Range Interpretation Comments WBC (test code = See_Comment [Automated 8990-2) message] The sy stem which generated this result transmitted reference range : 4.30 - 11.10 10*3/?L. The reference range was not used to interpret this result as normal/abnormal . RBC (test code = See_Comment L [Automated 129-8) message] The sy stem which generated this result transmitted reference range : 3.93 - 5.25 10*6/?L. The reference range was not used to interpret this result as normal/abnormal . HGB (test code = 10.1 g/dL 11.6-15.0 L 718-7) HCT (test code = 31.8 % 35.7-45.2 L 4544-3) MCV (test code = 97.8 fL 80.6-95.5 H 787-2) MCH (test code = 31.1 pg 25.9-32.8 785-6) MCHC (test code = 31.8 g/dL 31.6-35.1 786-4) RDW-SD (test code = 52.1 fL 39.0-49.9 H 60876-1) RDW-CV (test code = 14.4 % 12.0-15.5 788-0) PLT (test code = See_Comment [Automated 777-3) message] The sy stem which generated this result transmitted reference range : 166 - 358 10*3/ ?L. The reference r benson was not used to interpret this result as normal/abnormal . MPV (test code = 10.6 fL 9.5-12.9 24648-0) NRBC/100 WBC (test See_Comment [Automat ed code = [id number]) message] The system which generated this result transmitted reference range : 0.0 - 10.0 /100 WBCs. The refer ence range was not u sed to interpret th is result as normal/abnormal . NRBC x10^3 (test code <0.01 See_Comment [Auto mated = [id number]) message] The s ystem which generated this result transmitted reference range : 10*3/?L. The reference range was not used to interpret this result as normal/abnormal . GRAN MAT (NEUT) % 75.9 % (test code = 770-8) IMM GRAN % (test code 0.70 % = 8949301455) LYMPH % (test code = 16.3 % 736-9) MONO % (test code = 5.6 % 5905-5) EOS % (test code = 1.0 % 713-8) BASO % (test code = 0.5 % 706-2) GRAN MAT x10^3(ANC) 6.63 10*3/uL 1.88-7.09 (test code = 5058499430) IMM GRAN x10^3 (test 0.06 10*3/uL 0.00-0.06 code = 8065610329) LYMPH x10^3 (test code 1.42 10*3/uL 1.32-3.29 = 731-0) MONO x10^3 (test code 0.49 10*3/uL 0.33-0.92 = 742-7) EOS x10^3 (test code = 0.09 10*3/uL 0.03-0.39 711-2) BASO x10^3 (test code 0.04 10*3/uL 0.01-0.07 = 704-7) Lab Interpretation Abnormal (test code = 20270-7) [facility] THRM[facility] [id number] 17:44:12 Test Item Value Reference Range Interpretation Comments APTT Patient (test See_Comment [Automat ed code = 3173-2) message] The system which generated this result transmitted reference range : 23 - 38 Seconds . The reference range was not used to interpr et this result as normal/abnormal . CEZAR (test code = CEZAR) The [facility] patient population mean normal value for aPTT is 30 seconds. Lab Interpretation Normal (test code = 11522-2) [facility]woodPROTHROM[facility] TIME / [id number] 17:42:14 Test Item Value Reference Range Interpretation Comments PROTIME PATIENT (test See_Comment [Auto mated message] code = 5964-2) The system wh ich generated this result transmitted ref erence range: 12.0 - 1 4.7 Seconds. The re ference range was not u sed to interpret this result as normal/abnor mal. INR (test code = 6301-6) Nor mal INR <1.1; Warfarin Therap eutic range 2.0 to 3. 0 or 2.5 to 3.5, dep ending upon the indica tions. Lab Interpretation (test Normal code = 37940-1) [facility]woodL[facility] Acid Whole [id number] 17:06:14 Test Item Value Reference Range Interpretation Comments LACTIC ACID (test code = 1.72 mmol/L 0.50-2.20 [id number]) Lab Interpretation (test code = Normal 48412-6) [facility] THORAX WO [id number] 17:42:52 HISTORY: Hilar mass. TECHNIQUE: 64-Multidetector noncontrast enhanced CT of the chest isobtained. FINDINGS: No prior studies available for comparison. Thyroid gland is enlarged and there is a large heterogeneous low-density 2cm mass in the right lobe. Trachea and central bronchial airways appear normal. No enlarged lymphnodes are seen in the raya or the mediastinum. Extensive coronary atherosclerosisis noted involving LAD and LCx coronaryarteries. Calcification also seen at some of the smaller arteries in theright breast. A metallic stent is seen in the right axillary soft tissues,likely within the axillary vein. No suspicious lung mass detected. No pleural effusion or pericardialeffusion. Minimal fibrosis is noted in the right middle lobe and in theanterior basal segment of right lower lung. Degenerative changes noted in the lower thoracic spines. No compressionfracture deformity or any aggressive bone lesions visualized.Cholecystectomy noted. CONCLUSIONS:1. No acute intrathoracic abnormalitydetected. Specifically no lung massor hilar mass visualized.2. No enlarged hilar or mediastinal lymph nodes.3. Enlarged thyroid gland with 2 cm size mass in the right lobe. Thyroidultrasound study recommended. [facility] Results Inft User - 07/23/2020 11:44 AM CSTHISTORY: Hilar mass.TECHNIQUE: 64-Mu ltidetector noncontrast enhanced CT of the chest isobtained.FINDINGS: No prior studies available forcomparison.Thyroid gland is enlarged and there is a large heterogeneous low-density 2cm mass in the right lobe.Trachea and central bronchial airways appear normal. No enlarged lymphnodes are seen in the raya or the mediastinum.Extensive coronary atherosclerosis is noted involving LAD and LCx coronaryarteries. Calcification also seen at some of the smaller arteries in theright breast. A metallic stentis seen in the right axillary soft tissues,likely within the axillary vein.No suspicious lung mass detected. No pleural effusion or pericardialeffusion. Minimal fibrosis is noted in the right middle lobe and in theanterior basal segment of right lower lung.Degenerative changes noted in the lower thoracic spines. No compressionfracture deformity or any aggressive bone lesions visualized.Cholecystectomy noted.CONCLUSIONS:1. No acute intrathoracic abnormality detected. Specifically no lung massor hilarmass visualized.2. No enlarged hilar or mediastinal lymph nodes.3. Enlarged thyroid gland with 2 cm size mass in the right lobe. Thyroidultrasound study recommended.[facility] LUMBAR SPINE WO CONTRAST 2020-07-02 15:34:03HISTORY: Back pain running down the lateral right leg. History of multiplefalls. TECHNIQUE: SagittalT2 FRFSE, T1, STIR and axial T2 FRFSE T1 studies oflumbar spines are obtained. Additional coronal A0DNLDC study is alsoobtained. FINDINGS: Mild lumbar levoscoliosis and slightly exaggerated lumbarlordosis noted. No acute compression fracture or aggressive lesions of thebones detected. Spinal canal appears to be of adequate size and normalconus/cauda equina are found at the level of L1. Visualized ret roperitoneumis unremarkable for aortic aneurysm or enlarged lymph nodes orhydronephrosis. Several cystic lesions are seen scattered throughout both kidneys, largestis 2 cm size in the right kidney. Incidental note also made of hypertrophyof the left adrenal gland. T11-T12, T12-L1, L1-L2: Unremarkable.L2- L3: Minimal fluid in the right facet joint. L3-L4: Minimal fluid in both facet joints and slightly thickened ligamentumflavum. L4-L5: Bilateral facet arthritis with moderate amount of fluid in bothfacet joints and slightly thickened ligamentum flavum. L5-S1: Mild bilateral facet arthritis with fluid in both facet joints andthickened ligamentum flavum. Small lesions are seen in L3, L4, L5 and S1/X9abytcfort bodies, consistentwith benign lipomas. CONCLUSIONS:1. Exaggerated lumbar lordosis with mild levoscoliosis.2. No lumbar disc herniation at any of the lumbar levels. No spinal orforaminal stenosis.3. Multilevel facet arthritis, more at L4-L5 and L5-S1. [facility], [facility] Results Inft User - 07/02/2020 10:35 AM CDTHISTORY: Back pain running down the lateral right leg. History of multiplefalls.TECHNIQUE: Sagittal T2 FRFSE, T1, STIR and axial T2 FRFSE T1 studies oflumbar spines are obtained. Additional coronal T2 FRFSE study is alsoobtained.FINDINGS: Mild lumbar levoscoliosis and slightly exaggerated lumbarlordosis noted. No acute compression fracture or aggressive lesions of thebones detected. Spinal canal appears to be of adequate size and normalconus/cauda equina are found at the level of L1. Visualized retroperitoneumis unremarkable for aortic aneurysm or enlarged lymph nodes orhydronephrosis.Several cystic lesions are seen scattered throughout both kidneys, largestis 2 cm size in the rightkidney. Incidental note also made of hypertrophyof the left adrenal gland.T11-T12, T12-L1, L1-L2: Unremarkable.L2-L3: Minimal fluid in the right facet joint.L3-L4: Minimal fluid in both facet joints and slightly thickened ligamentumflavum.L4-L5: Bilateral facet arthritis with moderate amount of fluid in bothfacet joints and slightly thickened ligamentum flavum.L5-S1: Mild bilateral facet arthritis with fluid in both facet joints andthickened ligamentum flavum.Small lesions are seen in L3, L4, L5 andS1/S3 vertebral bodies, consistentwith benign lipomas.CONCLUSIONS:1. Exaggerated lumbar lordosis with mild levoscoliosis.2. No lumbar disc herniation at any of the lumbar levels. No spinal orforaminal stenosis.3. Multilevel facet arthritis, more at L4-L5 and L5-S1.[facility] CERVICAL SPINE WO [id number] 15:04:27HISTORY: Neck pain radiating down into the right arm. TECHNIQUE: T1/T2/STIR sagittal and T1/T2 FRFSE/2D MERGE axial studies ofcervical spines were obtained. FINDINGS: Reversal of normal cervical lordosis could be secondary to neckmuscle spasm. No compression fracture or abnormal marrow changes of thebones detected. Spinal canal is of adequate size and no intrinsic cervicalcord pathology detected. Theanatomy of the craniocervical junction appearsnormal. C2-C3: Normal. C3-C4: Normal. C4-C5: Mild degenerative disc disease with small osteophytes along theventral vertebral margins and minimal annular bulge into the spinal canalwithout significant thecal sac compression or foraminal encroachment. C5-C6: Mild degenerative disc disease with slightly prominent osteophytesalong the ventral vertebral margins. No bulging of the disc into the spinalcanal or into the neural foramina. C6-C7: Minimal degenerative changes of the ventral vertebral margins. Nobulging of the disc into the spinal canal or into theneural foramina. C7-T1, T1-T2, T2-C3: Unremarkable. CONCLUSIONS:1. Reversal of normal cervical lordosis could be secondary to neck musclespasm.2. Mild changes of degenerative disc disease at C5-C6, less at C4-C5,C6-C7. No significant bulging of the disc into the spinal canal at any ofthe cervical levels.3. No cord compression or nerve root compression detected at any othercervical levels.4. Incidental note of moderately enlarged thyroid gland, particularly theright lobe and there is a complex irregular shaped 2 cm size mass in theright lobe. Mild leftward deviation of the trachea noted. For completeevaluation, thyroid ultrasound study recommended. [facility], [facility] Results Inft User - 07/02/2020 10:05AM CDTHISTORY: Neck pain radiating down into the right arm.TECHNIQUE: T1/T2/STIR sagittal and T1/T2 FRFSE/2D MERGE axial studies ofcervical spines were obtained.FINDINGS: Reversal of normal cervical lordosis could be secondary to neckmuscle spasm. No compression fracture or abnormal marrow changes of thebones detected. Spinal canal is of adequate size and no intrinsic cervicalcord pathology detected.The anatomy of the craniocervical junction appearsnormal.C2-C3: Normal.C3-C4: Normal.C4-C5: Mild degenerative disc disease with small osteophytes along theventral vertebral margins and minimal annular bulge into the spinal canalwithout significant thecal sac compression or foraminal encroachment.C5-C6: Mild degenerative disc disease with slightly prominent osteophytesalong the ventral vertebral margins. No bulging of the disc into the spinalcanal or into the neural foramina.C6-C7: Minimal degenerative changes of the ventral vertebral margins. Nobulging of the disc into the spinal canal or into the neural foramina.C7-T1, T1-T2, T2-C3: Unremarkable.CONCLUSIONS:1. Reversal of normal cervical lordosiscould be secondary to neck musclespasm.2. Mild changes of degenerative disc disease at C5-C6, less at C4-C5,C6-C7. No significant bulging of the disc into the spinal canal at any ofthe cervical levels.3. No cord compression or nerve root compression detected at any othercervical levels.4. Incidental note of moderately enlarged thyroid gland, particularly theright lobe and there is a complex irregularshaped 2 cm size mass in theright lobe. Mild leftward deviation of the trachea noted. For completeevaluation, thyroid ultrasound study recommended.[facility]woodXR KNEE 3 VW [id number] 13:56:35HISTORY: ?Pain. FINDINGS: AP, lateral, oblique views of right knee showed no acute fractureor dislocation. No significant knee joint effusion or aggressive bonelesions seen. Mild tricompartmental degenerative arthritis is noted withinthe form of small osteophytes along the articular edges of the boneswithout significant narrowing of the joint spaces. Extensive arterial sclerosis noted with calcifications in multiple smalland medium size arteries. Please correlate with clinical history forchronic poorly controlled diabetes. CONCLUSIONS: Mild tricompartment degenerative arthritis of right knee. [facility], [facility] Results Inft User - 07/02/2020 8:57 AM CDTHISTORY: Pain.FINDINGS: AP, lateral, oblique viewsof right knee showed no acute fractureor dislocation. No significant knee joint effusion or aggressive bonelesions seen. Mild tricompartmental degenerative arthritis is noted withinthe form of small ost eophytes along the articular edges of the boneswithout significant narrowing of the joint spaces.Extensive arterial sclerosis noted with calcifications in multiple smalland medium size arteries. Pleasecorrelate with clinical history forchronic poorly controlled diabetes.CONCLUSIONS: Mild tricompartment degenerative arthritis of right knee.[facility]"
[2022-07-16] MEDS ORDERED: NA CHLORIDE 0.9% 1,000 ML ONE (15:10)
[2022-07-16] MEDS ORDERED: ONDANSETRON 4 MG/2 ML VIAL ONE (15:10)
[2022-07-16 15:24] LABS: Absolute Lymphocytes (CBC) 1.1 K/uL (0.7-4.9); Hematocrit 35.8 % (36.0-45.0); Lymphocytes % 8.9 % (15.3-44.8); MCV 94.8 fL (80-100); MPV 7.7 fL (7.6-11.3); RBC Red Blood Cell Count 3.78 M/uL (3.86-4.86)
[2022-07-16 15:29] LABS: Protime INR 1.05
[2022-07-16 15:52] LABS: Albumin 3.6 g/dL (3.4-5.0); Bilirubin Direct 0.1 mg/dL (0-0.2); Bilirubin Total 0.5 mg/dL (0.2-1.0); Protein, Total 8.5 g/dL (6.4-8.2); Troponin High Sensitivity 10.5 pg/mL (<58.9)
--- NOTE | 2022-07-16 16:14 | ER ---
Nurse's Notes [facility] Name: Valentine Dia Age: 66 yrs Sex: Female : 1955 Arrival Date: 07/16/2022 Time: 13:55 Bed 15 Private MD: Diagnosis: Nausea;Unspecified kidney failure-ESRD ON HD, T,TH,SAT Presentation: 07/16 14:00 Chief complaint: EMS states: patient received her dialysis treatment today, completed ko1 the 3 hours. When she was going out to get in the van to go home she became nauseated and lethargic. Coronavirus screen: At this time, the client does not indicate any symptoms associated with coronavirus-19. Ebola Screen: No symptoms or risks identified at this time. Initial Sepsis Screen: Does the patient meet any 2 criteria? No. Patient's initial sepsis screen is negative. Does the patient have a suspected source of infection? No. Patient's initial sepsis screen is negative. Risk Assessment: Do you want to hurt yourself or someone else? Patient reports no desire to harm self or others. Onset of symptoms was July 16, 2022. 14:00 Method Of Arrival: EMS: [facility] ko1 14:00 Acuity: TIRSO 3 ko1 Triage Assessment: 14:09 General: Appears in no apparent distress. comfortable, Behavior is calm, cooperative, ko1 appropriate for age. Pain: Denies pain. Historical: - Allergies: 14:09 No Known Allergies; ko1 - PMHx: 14:09 Diabetes mellitus; ko1 - Immunization history:: Adult Immunizations up to date. - Social history:: Smoking status: Patient denies any tobacco usage or history of. Screenin:12 Abuse screen: Denies threats or abuse. Denies injuries from another. Nutritional ko1 screening: No deficits noted. Tuberculosis screening: No symptoms or risk factors identified. Fall Risk None identified. Assessment: 14:12 General: Appears in no apparent distress. comfortable, Behavior is calm, cooperative, ko1 appropriate for age. Pain: Denies pain. Neuro: No deficits noted. Cardiovascular: No deficits noted. Respiratory: No deficits noted. GI: No deficits noted. : No deficits noted. EENT: No deficits noted. Derm: No deficits noted. Musculoskeletal: No deficits noted. Vital Signs: 14:00 BP 110 / 56; Pulse 84; Resp 16; Temp 97; Pulse Ox 98% ; Pain 0/10; ko1 14:22 BP 107 / 69; Pulse 90; Weight 90 kg; Height 5 ft. 4 in. (162.56 cm); ko1 14:41 BP 111 / 68; Pulse 88; ko1 16:26 BP 124 / 72; Pulse 85; Pulse Ox 97% ; ko1 14:22 Body Mass Index 34.06 (90.00 kg, 162.56 cm) ko1 ED Course: 13:55 Patient arrived in ED. em1 13:57 Cydney Peñaloza, TAWNYA is Primary Nurse. ko1 14:09 Triage completed. ko1 14:09 Arm band placed on right wrist. ko1 14:12 Patient has correct armband on for positive identification. Bed in low position. Call ko1 light in reach. Side rails up X2. 14:54 James Day MD is Attending Physician. morgan 15:12 Basic Metabolic Panel Sent. ko1 15:12 CBC with Diff Sent. ko1 15:12 LFT's Sent. ko1 15:12 Magnesium Sent. ko1 15:12 NT PRO-BNP Sent. ko1 15:12 PT-INR Sent. ko1 15:12 Troponin HS Sent. ko1 16:14 Samy Romero MD is Referral Physician. morgan 16:26 No provider procedures requiring assistance completed. IV discontinued, intact, ko1 bleeding controlled, No redness/swelling at site. Pressure dressing applied. 16:42 XRAY Chest (1 view) In Process Unspecified. EDMS Administered Medications: 15:11 Drug: Zofran (Ondansetron) 4 mg Route: IVP; Site: left antecubital; ko1 15:12 Drug: NS 0.9% 1000 ml Route: IV; Rate: 75 ml/hr; Site: left antecubital; ko1 Medication: 16:26 VIS not applicable for this client. ko1 Intake: 16:28 PO: 120ml; IV: 150ml (IV Fluid); Total: 270ml. ko1 Outcome: 16:14 Discharge ordered by . morgan 16:26 Discharged to home ambulatory. ko1 16:26 Condition: improved 16:26 Discharge instructions given to patient, Instructed on discharge instructions, follow up and referral plans. medication usage, Demonstrated understanding of instructions, follow-up care, medications, Prescriptions given X 1. 16:40 Patient left the ED. ko1 Signatures: Dispatcher [employer] EDJames Guillen MD MD cha Martinez, Eric em1 Oliver, Kathy, RN RN ko1
--- NOTE | 2022-07-16 16:15 | EDPHYS ---
Physician Documentation [facility] Name: Valentine Dia Age: 66 yrs Sex: Female : 1955 Arrival Date: 07/16/2022 Time: 13:55 Bed 15 Private MD: ED Physician James Day HPI: 07/16 15:57 This 66 yrs old Black Female presents to ER via EMS with complaints of Nausea. morgan 15:57 The patient presents to the emergency department with nausea, that is mild. Onset: The morgan symptoms/episode began/occurred just prior to arrival. Possible causes: unknown. The symptoms are aggravated by nothing. The symptoms are alleviated by nothing. Associated signs and symptoms: Pertinent positives: nausea. Severity of symptoms: At their worst the symptoms were mild moderate in the emergency department the symptoms are unchanged. The patient has experienced similar episodes in the past, a few times. Historical: - Allergies: 14:09 No Known Allergies; ko1 - PMHx: 14:09 Diabetes mellitus; ko1 - Immunization history:: Adult Immunizations up to date. - Social history:: Smoking status: Patient denies any tobacco usage or history of. ROS: 15:58 Constitutional: Negative for fever, chills, and weight loss, Eyes: Negative for injury, morgan pain, redness, and discharge, ENT: Negative for injury, pain, and discharge, Neck: Negative for injury, pain, and swelling, Cardiovascular: Negative for chest pain, palpitations, and edema, Respiratory: Negative for shortness of breath, cough, wheezing, and pleuritic chest pain, Back: Negative for injury and pain, : Negative for injury, bleeding, discharge, and swelling, MS/Extremity: Negative for injury and deformity, Skin: Negative for injury, rash, and discoloration, Neuro: Negative for headache, weakness, numbness, tingling, and seizure, Psych: Negative for depression, anxiety, suicide ideation, homicidal ideation, and hallucinations, Allergy/Immunology: Negative for hives, rash, and allergies, Endocrine: Negative for neck swelling, polydipsia, polyuria, polyphagia, and marked weight changes, Hematologic/Lymphatic: Negative for swollen nodes, abnormal bleeding, and unusual bruising. 15:58 Abdomen/GI: Positive for nausea. Exam: 15:58 Constitutional: This is a well developed, well nourished patient who is awake, alert, morgan and in no acute distress. Head/Face: Normocephalic, atraumatic. Eyes: Pupils equal round and reactive to light, extra-ocular motions intact. Lids and lashes normal. Conjunctiva and sclera are non-icteric and not injected. Cornea within normal limits. Periorbital areas with no swelling, redness, or edema. ENT: Nares patent. No nasal discharge, no septal abnormalities noted. Tympanic membranes are normal and external auditory canals are clear. Oropharynx with no redness, swelling, or masses, exudates, or evidence of obstruction, uvula midline. Mucous membranes moist. Neck: Trachea midline, no thyromegaly or masses palpated, and no cervical lymphadenopathy. Supple, full range of motion without nuchal rigidity, or vertebral point tenderness. No Meningismus. Chest/axilla: Normal chest wall appearance and motion. Nontender with no deformity. No lesions are appreciated. Cardiovascular: Regular rate and rhythm with a normal S1 and S2. No gallops, murmurs, or rubs. Normal PMI, no JVD. No pulse deficits. Respiratory: Lungs have equal breath sounds bilaterally, clear to auscultation and percussion. No rales, rhonchi or wheezes noted. No increased work of breathing, no retractions or nasal flaring. Abdomen/GI: Soft, non-tender, with normal bowel sounds. No distension or tympany. No guarding or rebound. No evidence of tenderness throughout. Back: No spinal tenderness. No costovertebral tenderness. Full range of motion. Skin: Warm, dry with normal turgor. Normal color with no rashes, no lesions, and no evidence of cellulitis. MS/ Extremity: Pulses equal, no cyanosis. Neurovascular intact. Full, normal range of motion. Neuro: Awake and alert, GCS 15, oriented to person, place, time, and situation. Cranial nerves II-XII grossly intact. Motor strength 5/5 in all extremities. Sensory grossly intact. Cerebellar exam normal. Normal gait. Psych: Awake, alert, with orientation to person, place and time. Behavior, mood, and affect are within normal limits. 15:58 ECG was reviewed by the Attending Physician. Vital Signs: 14:00 BP 110 / 56; Pulse 84; Resp 16; Temp 97; Pulse Ox 98% ; Pain 0/10; ko1 14:22 BP 107 / 69; Pulse 90; Weight 90 kg; Height 5 ft. 4 in. (162.56 cm); ko1 14:41 BP 111 / 68; Pulse 88; ko1 16:26 BP 124 / 72; Pulse 85; Pulse Ox 97% ; ko1 14:22 Body Mass Index 34.06 (90.00 kg, 162.56 cm) ko1 MDM: 14:[address] [facility] 16:00 Differential diagnosis: Nonspecific abd pain, viral gastroenteritis, gastroenteritis. [facility] Data reviewed: vital signs, nurses notes, lab test result(s), EKG, radiologic studies, plain films. Data interpreted: quality assurance monitor body: rate is 88 beats/min, rhythm is regular, Pulse oximetry: on room air is 98 %. Test interpretation: by ED physician or midlevel provider: ECG, plain radiologic studies. Counseling: I had a detailed discussion with the patient and/or guardian regarding: the historical points, exam findings, and any diagnostic results supporting the discharge/admit diagnosis, lab results, radiology results, the need for outpatient follow up, for definitive care, a family practitioner. 07/16 14:55 Order name: Basic Metabolic Panel; Complete Time: 16:13 07/16 14:55 Order name: CBC with Diff; Complete Time: 15:43 07/16 14:55 Order name: LFT's; Complete Time: 16:13 07/16 14:55 Order name: Magnesium; Complete Time: 16:13 07/16 14:55 Order name: NT PRO-BNP; Complete Time: 16:13 07/16 14:55 Order name: PT-INR; Complete Time: 15:43 07/16 14:55 Order name: Troponin HS; Complete Time: 16:13 07/16 14:55 Order name: XRAY Chest (1 view) [facility] 07/16 14:55 Order name: EKG; Complete Time: 14:56 07/16 14:55 Order name: Cardiac monitoring; Complete Time: 14:58 07/16 14:55 Order name: EKG - Nurse/Tech; Complete Time: 15:05 07/16 14:55 Order name: IV Saline Lock; Complete Time: 15:05 07/16 14:55 Order name: Labs collected and sent; Complete Time: 15:05 07/16 14:55 Order name: O2 Per Protocol; Complete Time: 15: [facility] 07/16 14:55 Order name: O2 Sat Monitoring; Complete Time: 15:05 [facility] EC:58 Rate is 87 beats/min. Rhythm is regular. QRS [place] is Normal. [place] interval is normal. QRS morgan interval is normal. QT interval is normal. No Q waves. T waves are Normal. No ST changes noted. Clinical impression: NSR w/ Non-specific ST/T Changes, 1st degree heart block, and No evidence of ischemia. Interpreted by me. Reviewed by me. Administered Medications: 15:11 Drug: Zofran (Ondansetron) 4 mg Route: IVP; Site: left antecubital; ko1 15:12 Drug: NS 0.9% 1000 ml Route: IV; Rate: 75 ml/hr; Site: left antecubital; ko1 Disposition Summary: 07/16/22 16:14 Discharge Ordered Location: Home morgan Problem: new morgan Symptoms: have improved morgan Condition: Fair morgan Diagnosis - Nausea morgan - Unspecified kidney failure - ESRD ON HD, T,TH,SAT morgan Followup: morgan - With: Private Physician - When: 2 - 3 days - Reason: Recheck today's complaints, Continuance of care, Re-evaluation by your physician Followup: morgan - With: - When: 1 - 2 days - Reason: Recheck today's complaints, Continuance of care, Re-evaluation by your physician Discharge Instructions: - Discharge Summary Sheet morgan - Nausea, Adult morgan - Dialysis morgan - Chronic Kidney Disease, Adult, [id number] morgan - Nausea, Adult, [id number] morgan - Hemodialysis morgan Forms: - Medication Reconciliation Form morgan - Thank You Letter morgan - Antibiotic Education morgan - Prescription Opioid Use morgan Prescriptions: - Zofran 4 mg Oral Tablet - take 1 tablet by ORAL route every 12 hours As needed; 20 tablet; Refills: 0, morgan Product Selection Permitted Signatures: Dispatcher [employer] James Tavarez MD MD cha Oliver, Kathy RN RN ko1 Corrections: (The following items were deleted from the chart) 15:08 14:55 Urine Dipstick-Ancillary ordered. morgan ko1
--- NOTE | 2022-07-16 16:53 | RAD REPORT ---
EXAM DESCRIPTION: RAD - Chest Single View - 07/16/2022 4:40 pm CLINICAL HISTORY: COUGH Chest pain. COMPARISON: Chest Pa And Lat (2 Views) dated 04/22/2017; CHEST PA AND LAT 2 VIEW dated 09/26/2014; CHEST SINGLE VIEW dated 08/09/2012 FINDINGS: Portable technique limits examination quality. The lungs are grossly clear. The heart is mildly prominent in size. No displaced fractures.Right uppe r arm vascular stent. IMPRESSION: No acute intrathoracic process suspected.
[2022-07-16 17:24] VITALS: TEMP 97
[2022-07-16 17:27] VITALS: BP 124/72; O2SAT 97
== END 2022-07-16 16:40 | disposition home or self-care (01) ==
LOC: ER 12:58
DX: R11.0 Nausea (principal); E11.22 Type 2 diabetes mellitus with diabetic chronic kidney disease; N18.6 End stage renal disease; Z99.2 Dependence on renal dialysis
CPT/HCPCS: 85025; 80048; 36415; 83735; 85610; 80076; 84484; 83880; 71045; 96374; 99284; J7030; J2405

== ENCOUNTER 2022-07-19 19:25 | Inpatient (IN) | payer OTHER ==
--- OUTSIDE RECORDS SUMMARY | 2022-07-19 20:51 | XMS REPORT | Continuity of Care Document ---
:1955 Author Organization [facility] t Address [address] [place] [address] Care Team Providers Name Role Phone Pcp, Patient Does Not Have A Primary Care Physician [id number] Ivan Freitas Attending Clinician Unavailable Ruperto Castillo MD Attending Clinician Doctor Unassigned, [place] Attending Clinician Unavailable Only, Adc Test Attending Clinician Unavailable Octavio Adams MD Attending Clinician Radiology Attending Clinician Unavailable RADIOLOGY Attending Clinician Unavailable Ivan Freitas Admitting Clinician Unavailable Payers Payer Name Policy Type Policy Number Effective Date Expiration Date Jailene jeffries MEDICARE PART A [id number] 2006 \\T\\ B 00:00:00 MEDICAID [facility] [id number] 2015 00:00:00 Problems Condition Condition Condition Status Onset Resolution Last Treating Co mments Source Name Details Category Date Date Treatment Clinician Date HLD HLD Disease Active Overview: Univer s (hyperlipi (hyperlipi 2-23 Formattin ity of demia) demia) 00:00: g of this [place] 00 note Medical might be Branch different from the original. ICD10 Diagnosis Term Email Marketing Coordinator Utility Allergic Allergic Disease Active Unive rs rhinitis rhinitis 2-23 ity of 00:00: [place] [address] Medical Branch Insomnia Insomnia Disease Active Unive rs 2-23 ity of 00:00: [place] [address] Medical Branch Edema Edema Disease Active 2015-0 Univers 2-23 ity of 00:00: [place] 00 Medical Branch DM2 DM2 Disease Active Univers (diabetes (diabetes 2-23 ity of mellitus, mellitus, [place] type 2[place] type 2[place] 00 Medical Branch Subjective Subjective Disease Active U nivers tremor tremor 2-23 ity of 00:00: Medical Branch Tobacco Tobacco Disease Active Univers abuse abuse 223 ity of 00:00: Medical Branch Essential Essential Disease Active 2006-09 Uni vers hypertensi hypertensi 0-10 it y of on, benign [place], [place] Bronchitis Bronchitis Disease Active 2006-09 Overview : Univers 0-10 Formattin ity of 00:00: g of this [place] note Medical might be Branch different from the original. ICD10 Diagnosis Term Email Marketing Coordinator Utility Arthropath Arthropath Disease Active 2006-09 Overview : Univers y y 0-10 Formattin ity of 00:00: g of this [place] note Medical might be Branch different from the original. ICD10 Diagnosis Term Email Marketing Coordinator Utility Allergies, Adverse Reactions, Alerts Allergy Allergy Status Severity Reaction(s) Onset Inactive Treating Comm ents Source Name Type Date Date Clinician No Known DA Active U [facility] Allergie 2-15 Clear s 00:00: [place] [address] [facility] CLONIDIN DRUG Active EP Effects Univ ers E INGREDI 2-03 ity of 00:00: [facility] Branch Clonidin Propensi Active Extra Univer s e ty to pyramidal 203 ity of adverse effects 00:00: [place] reaction [facility] s [place] Social History Social Habit Start Date Stop Date Quantity Comments Source Exposure to Not sure University of SARS-CoV-2 (event) [facility] History of tobacco Cigarette Smoker University of use [facility] Alcohol intake 2018-07-21 2018-07-21 0 /d University of 00:00:00 00:00:00 [facility] Cigarette 2017-03-10 2017-03-10 University of pack-years 00:00:00 00:00:00 [facility] Tobacco use and 2017-03-10 2017-03-10 Never used Universit y of exposure 00:00:00 00:00:00 [facility] Tobacco Comment 2017-03-10 2017-03-10 says she quit 2 Univ ersity of 00:00:00 00:00:00 weeks ago [facility] Branch Cigarettes smoked 2017-03-10 2017-03-10 Univers ity of current (pack per 00:00:00 00:00:00 ) - Reported Branch Sex [birth year] Universit y of 00:00:00 00:00:00 [facility] Branch Smoking Status Start Date Stop Date Source Smoker, current status 2017-03-10 00:00:00 Unive rsity of [facility] unknown Branch Medications Ordered Filled Start Stop Current Ordering Indication Dosage Frequency Signature Comments Components Source Medication Medication Date Date Medication? Clinician (SIG) Name Name folic 2017-09 Yes 1{tbl} Take 1 Univers acid/vit B 0-31 tablet by ity of complex and 20:09: mouth. [place] [address] Medical [facility] folic 2017-09 Yes 1{tbl} Take 1 Univers acid/vit B 0-31 tablet by ity of complex and 20:09: mouth. [place] [address] Medical [facility] folic 2017-09 Yes 1{tbl} Take 1 Univers acid/vit B 0-31 tablet by ity of complex and 20:09: mouth. [place] [address] Medical [facility] folic 2017-09 Yes 1{tbl} Take 1 Univers acid/vit B 0-31 tablet by ity of complex and 20:09: mouth. [place] [address] Medical [facility] folic 2017-09 Yes 1{tbl} Take 1 Univers acid/vit B 0-31 tablet by ity of complex and 20:09: mouth. [place] [address] Medical [facility]) folic 2017-09 Yes 1{tbl} Take 1 Univers acid/vit B 0-31 tablet by ity of complex and 20:09: mouth. [place] [address] Medical [facility]) isosorbide 2017-09 Yes 60mg Take 60 mg U nivers mononitrate 0-31 by mouth ity of (IMDUR) 60 19:49: daily. [place] mg 24 hr 19 Medical tablet Branch carvedilol 2017-09 Yes 25mg Take 25 mg U nivers (COREG) 25 0-31 by mouth 2 ity of mg tablet 19:49: (two) [place] 19 times Medical daily with Branch meals. aspirin 81 2017-09 Yes 81mg Take 81 mg U nivers mg tablet 0-31 by mouth ity of 19:49: daily. [place] [address] Medical Branch diazepam 2017-09 Yes 10mg Take [...] by mouth ity of C/BIOTIN 19:49: daily. [place] ([facility] Medical RX ORAL) Branch amLODIPine [...] 2 ity of mg tablet 19:49: (two) [place] 19 times Medical daily with Branch meals. aspirin 81 2017-09 Yes 81mg Take 81 mg U nivers mg tablet 0-31 by mouth ity of 19:49: daily. [place] 19 Medical Branch diazepam 2017-09 Yes 10mg [...] by mouth ity of C/BIOTIN 19:49: daily. [place] ([facility] 19 Medical RX ORAL) Branch amLODIPine [...] by mouth ity of C/BIOTIN 19:49: daily. [place] ([facility] 19 Medical RX ORAL) Branch amLODIPine [...] 2 ity of mg tablet 19:49: (two) [place] 19 times Medical daily with Branch meals. aspirin 81 2017-09 Yes 81mg Take 81 mg U nivers mg tablet 0-31 by mouth ity of 19:49: daily. [place] [address] Medical Branch diazepam 2017-09 Yes 10mg Take [...] by mouth ity of C/BIOTIN 19:49: daily. [place] ([facility] 19 Medical RX ORAL) Branch amLODIPine [...] 2 ity of mg tablet 19:49: (two) [place] 19 times Medical daily with Branch meals. aspirin 81 2017-09 Yes 81mg Take 81 mg U nivers mg tablet 0-31 by mouth ity of 19:49: daily. [place] Medical Branch diazepam 2017-09 Yes 10mg Take [...] by mouth ity of C/BIOTIN 19:49: daily. [place] ([facility] 19 Medical RX ORAL) Branch amLODIPine [...] 2 ity of mg tablet 19:49: (two) [place] 19 times Medical daily with Branch meals. aspirin 81 2017-09 Yes 81mg Take 81 mg U nivers mg tablet 0-31 by mouth ity of 19:49: daily. [place] 19 Medical Branch diazepam 2017-09 Yes 10mg [...] by mouth ity of C/BIOTIN 19:49: daily. [place] ([facility]QU[facility] 19 Medical RX ORAL) Branch amLODIPine [...] by ity of complex and 15:09: mouth. [facility] s C 43 Medical ([facility] Branch ORAL) isosorbide 2017-09 Yes 60mg Take 60 mg U nivers mononitrate 0-31 by mouth ity of (IMDUR) 60 14:49: daily. [place] mg 24 hr 19 Medical tablet Branch carvedilol 2017-09 Yes 25mg Take 25 mg U nivers (COREG) 25 0-31 by mouth 2 ity of mg tablet 14:49: (two) [place] 19 times Medical daily with Branch meals. aspirin 81 2017-09 Yes 81mg Take 81 mg U nivers mg tablet 0-31 by mouth ity of 14:49: daily. [place] [address] Medical Branch diazepam 2017-09 Yes 10mg Take 10 mg Uni vers (VALIUM) 10 0-31 by mouth ity of mg tablet 14:49: every [place] [address] evening. Medical Branch docusate 2017-09 Yes 100mg Take 100 Univ ers (COLACE) 0-31 mg by ity of 100 mg 14:49: mouth [place] capsule 19 daily. Medical Branch VIT B CMPLX 2017-09 Yes 1{tbl} Take 1 Tab Univers 3/FA/VIT 0-31 by mouth ity of C/BIOTIN 14:49: daily. [place] ([facility]QU[facility] 19 Medical RX ORAL) Branch amLODIPine 2017-09 Yes 2.5mg Take 2.5 Un mayo 2.5 mg 0-31 mg by ity of tablet 14:49: mouth [place] 19 daily. Medical Branch ALBUTEROL 2017-09 Yes Inhale as Uni vers SULFATE 0-31 needed. ity of (PROAIR HFA 14:49: [place] INHALE) 19 Medical Branch isosorbide 2017-09 Yes 60mg Take 60 mg U nivers mononitrate 0-31 by mouth ity of (IMDUR) 60 14:49: daily. [place] mg 24 hr 19 Medical tablet Branch carvedilol 2017-09 Yes 25mg Take 25 mg U nivers (COREG) 25 0-31 by mouth 2 ity of mg tablet 14:49: (two) [place] 19 times Medical daily with Branch meals. aspirin 81 2017-09 Yes 81mg Take 81 mg U nivers mg tablet 0-31 by mouth ity of 14:49: daily. [place] 19 Medical Branch diazepam 2017-09 Yes 10mg Take 10 mg Uni vers (VALIUM) 10 0-31 by mouth ity of mg tablet 14:49: every [place] 19 evening. Medical Branch docusate 2017-09 Yes 100mg Take 100 Univ ers (COLACE) 0-31 mg by ity of 100 mg 14:49: mouth [place] capsule 19 daily. Medical Branch VIT B CMPLX 2017-09 Yes 1{tbl} Take 1 Tab Univers 3/FA/VIT 0-31 by mouth ity of C/BIOTIN 14:49: daily. [place] (DAQU[facility] 19 Medical RX ORAL) Branch amLODIPine [...] 9-27 QD ity of hr tablet 00:00: [place] Medical Branch glipiZIDE Yes TK 1 T PO Uni vers XL 10 mg 24 9-27 QD ity of hr tablet 00:00: Medical Branch glipiZIDE Yes TK 1 T PO Uni vers XL 10 mg 24 9-27 QD ity of hr tablet 00:00: [place] Medical Branch glipiZIDE Yes TK 1 T PO Uni vers XL 10 mg 24 9-27 QD ity of hr tablet 00:00: [place] Medical Branch furosemide Yes TK 1 T PO Un mayo 40 mg 8-29 QD ity of tablet 00:00: [place] [facility] furosemide Yes TK 1 T PO Un mayo 40 mg 8-29 QD ity of tablet 00:00: [place] [facility] furosemide Yes TK 1 T PO Un mayo 40 mg 8-29 QD ity of tablet 00:00: [place] [facility] furosemide Yes TK 1 T PO Un mayo 40 mg 8-29 QD ity of tablet 00:00: [place] [facility] furosemide Yes TK 1 T PO Un mayo 40 mg 8-29 QD ity of tablet 00:00: [place] [facility] furosemide Yes TK 1 T PO Un mayo 40 mg 8-29 QD ity of tablet 00:00: [place] [facility] furosemide Yes TK 1 T PO Un mayo 40 mg 8-29 QD ity of tablet 00:00: [place] [facility] furosemide Yes TK 1 T PO Un mayo 40 mg 8-29 QD ity of tablet 00:00: [place] [facility] fluticasone 2014-0 Yes 2{spray Use 2 Un [...] ity o f mg tablet 00:00: at [place] 00 bedtime. Medical Branch simvastatin Yes 10mg Take 1 Tab Univers (ZOCOR) 10 8-15 by mouth ity o f mg tablet 00:00: at [place] 00 bedtime. Medical Branch simvastatin Yes 10mg Take 1 Tab Univers (ZOCOR) 10 8-15 by mouth ity o f mg tablet 00:00: at [place] 00 bedtime. Medical Branch simvastatin Yes 10mg Take 1 Tab Univers (ZOCOR) 10 8-15 by mouth ity o f mg tablet 00:00: at [place] 00 bedtime. Medical Branch simvastatin Yes 10mg Take 1 Tab Univers (ZOCOR) 10 8-15 by mouth ity o f mg tablet 00:00: at [place] 00 bedtime. Medical Branch simvastatin Yes 10mg Take 1 Tab Univers (ZOCOR) 10 8-15 by mouth ity o f mg tablet 00:00: at [place] 00 bedtime. Medical Branch simvastatin Yes 10mg Take 1 Tab Univers (ZOCOR) 10 8-15 by mouth ity o f mg tablet 00:00: at [place] 00 bedtime. Medical Branch carisoprodo Yes 350mg [...] Source Systolic blood 2021-06-20 19:14:00 168 [facility]Hg[facility] 2021-06-20 19:14:00 78 [facility] 2021-06-20 19:14:00 84 /min [facility] Body temperature 2021-06-20 19:14:00 36.78 Huong [facility] Respiratory rate 2021-06-20 19:14:00 18 /min [facility] Oxygen saturation in 2021-06-20 19:14:00 99 /min [facility] Arterial blood by [facility] Pulse oximetry Branch Body weight 2021-06-20 16:14:00 97.07 kg [facility] BMI 2021-06-20 16:14:00 36.73 kg/m2 [facility] Procedures Procedure Date / Time Performing Clinician Source Performed [id number] 2021-11-11 00:00:00 VUPH [facility] [id number] 2021-11-08 00:00:00 [facility] [id number] 2021-11-06 00:00:00 VUPH [facility] [id number] 2021-11-05 00:00:00 VUPH [facility] [id number] 2021-11-05 00:00:00 ISSHU [facility] [id number] 2021-11-04 00:00:00 VUPH [facility] [id number] 2021-11-03 00:00:00 VUPH [facility] POCT GLUCOSE 2021-06-20 19:04:00 Ruperto Castillo [facility] (AUTOMATED) [facility] TROPONIN I 2021-06-20 17:03:00 Ruperto Castillo [facility] COMP. METABOLIC PANEL 2021-06-20 17:03:[address] [facility] ([id number]) [facility] PROTHROMBIN TIME / INR 2021-06-20 17:03:00 Ruperto Castillo [facility] ACTIVATED PARTIAL 2021-06-20 17:03:00 Ruperto Castillo [facility] THRMPLAS NEENA [facility] CBC WITH DIFF 2021-06-20 17:02:00 Ruperto Castillo [facility] COVID-19 (ID NOW RAPID 2021-06-20 17:02:00 Ruperto Castillo [facility] TESTING) [facility] LACTIC ACID WHOLE BLOOD 2021-06-20 17:01:00 Ruperto Castillo [facility] NOTICE OF PRIVACY 2021-06-20 15:46:14 Doctor Unassigned, No Univ [facility] PRACTICES Name Medical Branch CONSENT/REFUSAL FOR 2021-06-20 15:45:38 Doctor Unassigned, [facility] Name Medical Branch CT THORAX WO CONTRAST 2020-07-23 17:26:12 Requisition, Paper [facility] acute hospital MR LUMBAR SPINE WO 2020-07-02 15:28:37 Requisition, Paper Univer sity [facility] [place] [facility] MR CERVICAL SPINE WO 2020-07-02 14:59:10 Requisition, Paper Univ ersity [facility] [place] [facility] XR KNEE 3 VW RIGHT 2020-07-02 13:53:51 Requisition, Paper Univer sity [facility] ASSIGNMENT OF BENEFITS 2020-07-02 13:22:22 Doctor Unassigned, No [facility] Encounters Start End Encounter Admission Attending Care Care Encounter Source Date/Time Date/Time Type Type Clinicians Facility Department ID 2021-07-22 Emergency [facility] [id number] Univers 03:02:46 ity of [facility] 2021-11-04 2021-11-11 Inpatient EM Ivan Freitas [facility] . [id number] [facility] 13:10:00 21:23:00 22 [facility] 2021-06-20 2021-06-20 Emergency Cast[facility], [facility] [id number] Univers 11:16:00 14:18:00 Ruperto Hawley [id number] i ty of [place] 4.2.7.2.686 [facility] [id number] [facility] 084 Branch 2021-06-20 2021-06-20 Orders Doctor MAYURI [id number] Univers 00:00:00 00:00:00 Only Unassigned, IMER [id number] ity of [place] [facility] [id number] Jv as [id number] [facility] 009 Branch 2020-08-06 2020-08-06 Laboratory Only, Adc Test [facility] 1.2.840. [id number] Univers 10:18:02 10:33:02 Only Octavio Adams [id number] ity of [place] 4.2.7.2.686 [facility] [id number] [facility] 353 Branch 2020-08-06 2020-08-06 Outpatient R [facility] [id number] Univers 10:30:00 10:30:00 ity of [facility] 2020-07-23 2020-07-23 Hospital Radiology [facility] [id number] Univers 10:58:11 23:59:00 Encounter [place] [id number] ity of [place] 4[place].2.686 [place] [id number] [facility] 801 Branch 2020-07-23 2020-07-23 Outpatient R RADIOLOGY [facility] [id number] Univers 00:00:00 00:00:00 ity of [facility] 2020-07-18 2020-07-18 Outpatient R RADIOLOGY [facility] [id number] Univers 00:00:00 00:00:00 ity of [facility] 2020-07-16 2020-07-16 Outpatient R [facility] [id number] Univers 09:30:00 09:30:00 ity of [facility] 2020-07-02 2020-07-02 [facility] Radiology [facility] [id number] Univers 08:28:21 23:59:00 Encounter [place] [id number] ity of [place] 4[place]2.7.2.686 [place] [id number] [facility] [address] [place] [address] 2020-07-02 2020-07-02 [facility] Radiology [facility] [id number] Univers 08:28:00 08:28:00 Encounter [place] [id number] ity of [place] 4[place].2.686 [place] [id number] [facility] [address] [place] [address] 2020-07-02 2020-07-02 [facility] Radiology [facility] [id number] Univers 08:26:35 08:27:00 Encounter [place] [id number] ity of [place] 4[place].7.2.686 [place] [id number] [address] 2020-07-02 2020-07-02 Outpatient R RADIOLOGY [facility] [id number] Univers 00:00:00 00:00:00 ity of [facility] 2020-07-02 2020-07-02 Orders Doctor MAYURI [id number] Univers 00:00:00 00:00:00 Only Unassigned, IMER [id number] ity of [place] [facility] 4.2.7.2.686 Jv as [id number] Medi huss[place] 009 Branch Results Test Description Test Time Test Comments Results Result Comments Source GLUCOSE BEDSIDE 2021-11-11 17:19:00 Test Item Value Reference Range Interpretation Comme nts GLUCOSE BEDSIDE (test code = 241 MG/DL 70-110 H Performed by certified 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 GLUBED) [facility] GLUCOSE [id number] 10:54:00 Test Item Value Reference Range Interpretation Comments GLUCOSE BEDSIDE (test 157 MG/DL 70-110 H Perfor med by certified code = GLUBED) 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 [facility] GLUCOSE [id number] 07:58:00 Test Item Value Reference Range Interpretation Comments GLUCOSE BEDSIDE (test 172 MG/DL 70-110 H Perfor med by certified code = GLUBED) 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 [facility] GLUCOSE [id number] 19:45:00 Test Item Value Reference Range Interpretation Comments GLUCOSE BEDSIDE (test 314 MG/DL 70-110 H Perfor med by certified code = GLUBED) 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 [facility] GLUCOSE [id number] 17:28:00 Test Item Value Reference Range Interpretation Comments GLUCOSE BEDSIDE (test 242 MG/DL 70-110 H Perfor med by certified code = GLUBED) 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 [facility] GLUCOSE [id number] 11:52:00 Test Item Value Reference Range Interpretation Comments GLUCOSE BEDSIDE (test 213 MG/DL 70-110 H Perfor med by certified code = GLUBED) 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 [facility] GLUCOSE [id number] 08:09:00 Test Item Value Reference Range Interpretation Comments GLUCOSE BEDSIDE (test 178 MG/DL 70-110 H Perfor med by certified code = GLUBED) 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 [facility] GLUCOSE [id number] 19:29:00 Test Item Value Reference Range Interpretation Comments GLUCOSE BEDSIDE (test 281 MG/DL 70-110 H Perfor med by certified code = GLUBED) 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 [facility] GLUCOSE [id number] 17:26:00 Test Item Value Reference Range Interpretation Comments GLUCOSE BEDSIDE (test 272 MG/DL 70-110 H Perfor med by certified code = GLUBED) 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 [facility] GLUCOSE [id number] 11:53:00 Test Item Value Reference Range Interpretation Comments GLUCOSE BEDSIDE (test 227 MG/DL 70-110 H Perfor med by certified code = GLUBED) 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 [facility] GLUCOSE [id number] 08:01:00 Test Item Value Reference Range Interpretation Comments GLUCOSE BEDSIDE (test 238 MG/DL 70-110 H Perfor med by certified code = GLUBED) 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 [facility] BASIC METABOLIC [id number] 07:43:00 Test Item Value Reference Range Interpretation [...] CA) COMMENTS: Daily while receiving remdesivirHEPATIC FUNCTION [id number] 07:43:00 Test Item Value Reference Range Interpretation [...] BILIND) COMMENTS: Daily while receiving remdesivirCBC W/AUTO [id number] 07:38:00 Test Item Value Reference Range Interpretation [...] 0.00 x10 3/uL 0.0-0.1 N NRBC#) GLUCOSE [id number] 20:01:00 Test Item Value Reference Range Interpretation Comments GLUCOSE BEDSIDE (test 322 MG/DL 70-110 H Perfor med by certified code = GLUBED) 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 [facility] GLUCOSE [id number] 16:57:00 Test Item Value Reference Range Interpretation Comments GLUCOSE BEDSIDE (test 196 MG/DL 70-110 H Perfor med by certified code = GLUBED) 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 [facility] GLUCOSE [id number] 12:11:00 Test Item Value Reference Range Interpretation Comments GLUCOSE BEDSIDE (test 281 MG/DL 70-110 H Perfor med by certified code = GLUBED) 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 [facility] BASIC METABOLIC [id number] 08:22:00 Test Item Value Reference Range Interpretation [...] CA) COMMENTS: Daily while receiving remdesivirHEPATIC FUNCTION [id number] 08:22:00 Test Item Value Reference Range Interpretation [...] = ALKP) COMMENTS: Daily while receiving remdesivirGLUCOSE [id number] 08:10:00 Test Item Value Reference Range Interpretation Comments GLUCOSE BEDSIDE (test 233 MG/DL 70-110 H Perfor med by certified code = GLUBED) 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 [facility] CBC W/AUTO [id number] 08:02:00 Test Item Value Reference Range Interpretation [...] 0.00 x10 3/uL 0.0-0.1 N NRBC#) GLUCOSE [id number] 20:29:00 Test Item Value Reference Range Interpretation Comments GLUCOSE BEDSIDE (test 312 MG/DL 70-110 H Perfor med by certified code = GLUBED) 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 [facility] GLUCOSE [id number] 18:02:00 Test Item Value Reference Range Interpretation Comments GLUCOSE BEDSIDE (test 237 MG/DL 70-110 H Perfor med by certified code = GLUBED) 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 [facility] GLUCOSE [id number] 10:58:00 Test Item Value Reference Range Interpretation Comments GLUCOSE BEDSIDE (test 243 MG/DL 70-110 H Perfor med by certified code = GLUBED) 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 [facility] GLUCOSE [id number] 08:34:00 Test Item Value Reference Range Interpretation Comments GLUCOSE BEDSIDE (test 198 MG/DL 70-110 H Perfor med by certified code = GLUBED) 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 [facility] BASIC METABOLIC [id number] 07:57:00 Test Item Value Reference Range Interpretation [...] CA) COMMENTS: Daily while receiving remdesivirHEPATIC FUNCTION [id number] 07:57:00 Test Item Value Reference Range Interpretation [...] ALKP) COMMENTS: Daily while receiving remdesivirCBC W/AUTO [id number] 06:57:00 Test Item Value Reference Range Interpretation [...] REQUIRED (test code NO = MDIFF) GLUCOSE [id number] 19:32:00 Test Item Value Reference Range Interpretation Comments GLUCOSE BEDSIDE (test 303 MG/DL 70-110 H Perfor med by certified code = GLUBED) 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 [facility] GLUCOSE [id number] 15:56:00 Test Item Value Reference Range Interpretation Comments GLUCOSE BEDSIDE (test 334 MG/DL 70-110 H Perfor med by certified code = GLUBED) 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 [facility] GLUCOSE [id number] 12:14:00 Test Item Value Reference Range Interpretation Comments GLUCOSE BEDSIDE (test 275 MG/DL 70-110 H Perfor med by certified code = GLUBED) 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 [facility] GLUCOSE [id number] 08:01:00 Test Item Value Reference Range Interpretation Comments GLUCOSE BEDSIDE (test 167 MG/DL 70-110 H Perfor med by certified code = GLUBED) 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 [facility] BASIC METABOLIC [id number] 08:00:00 Test Item Value Reference Range Interpretation [...] CA) COMMENTS: Daily while receiving remdesivirHEPATIC FUNCTION [id number] 08:00:00 Test Item Value Reference Range Interpretation [...] ALKP) COMMENTS: Daily while receiving remdesivirCBC W/AUTO [id number] 07:58:00 Test Item Value Reference Range Interpretation [...] (test code NO = MDIFF) ACUTE HEPATITIS [id number] 04:09:00 Test Item Value Reference Range Interpretation Comments AB HEPATITIS A IGM (test NON REACTIVE INDEX NON REACT. code = HAVMAB) AG HEPATITIS B SURFACE NON REACTIVE INDEX NonReactive (test code = HBSAG) AB HEPATITIS B CORE IGM NON REACTIVE INDEX NON REACT. (test code = HBCMAB) AB HEPATITIS C (test code NON REACTIVE INDEX NON REACT. = HCVAB) AB HEPATITIS B [id number] 04:09:00 Test Item Value Reference Range Interpretation Comments AB HEPATITIS B 449.2 mIU/mL See_Comment Status of Im munity SURFACE (test code = Anti-HB s Level HBSAB) --- I nconsi stent with Immu nity 0.0 - 9.9Consis tent with Immunity >9.9Performed A t: HD [facility] [address] [id number] Kyle L MD Ph:[phone] [Automated mess age] The system Sent[employer] generated this result transmitted ref erence range: Immunity >9.9. The reference r benson was not used to interpret this result as normal/abnor mal. GLUCOSE [id number] 21:13:00 Test Item Value Reference Range Interpretation Comments GLUCOSE BEDSIDE (test 149 MG/DL 70-110 H Perfor med by certified code = GLUBED) 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 [facility] HEPATIC FUNCTION [id number] 17:24:00 Test Item Value Reference Range Interpretation [...] ALKP) COMMENTS: Prior to remdesivir dosingGLOMERULAR FILTRATION [id number] 17:24:00 Test Item Value Reference Range Interpretation Comments GLOMERULAR FILTRATION 4.2 80-90 L Units of measure = RATE (test code = GFR) ml/mi n/1.73 m2 COMMENTS: Prior to remdesivir [id number] 17:24:00 Test Item Value Reference Range Interpretation Comments CREATININE (test code = CREAT) 11.0 mg/dL 0.6-1.3 H COMMENTS: Prior to remdesivir dosingPROTHROMBIN [id number] 16:57:00 Test Item Value Reference Range Interpretation Comments PROTHROMBIN TIME 11.9 SECONDS 9.3-12.9 N PATIENT (test code = PTP) INTERNATIONAL NORMAL 1.1 0.8-1.2 N TARGE T INR BY RATIO (test code = INDICATIO [...] infar ct). 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 [facility] GLUCOSE [id number] 09:26:00 Test Item Value Reference Range Interpretation Comments GLUCOSE BEDSIDE (test 90 MG/DL 70-110 N Perfor med by certified code = GLUBED) 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 Y BILIRUBIN TOTAL (test 0.50 mg/dL 0.0-1.0 N code = BILT) SGOT/AST (test code = 39 IUnit/L 15-37 H AST) SGPT/ALT (test code = 17 IUnit/L 30-65 L ALT) ALKALINE PHOSPHATASE 74 IUnit/L 20-125 N TOTAL (test code = ALKP) [id number] 07:59:00 Test Item Value Reference Range Interpretation Comments PHOSPHOROUS (test code = PHOS) 6.3 MG/DL 2.5-4.9 H CBC W/AUTO [id number] 07:50:00 Test Item Value Reference Range Interpretation [...] REQUIRED (test code NO = MDIFF) GLUCOSE [id number] 00:50:00 Test Item Value Reference Range Interpretation Comments GLUCOSE BEDSIDE (test 82 MG/DL 70-110 N [facility] med by certified code = GLUBED) 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 [facility] CBC W/AUTO [id number] 00:08:00 Test Item Value Reference Range Interpretation [...] 0.1-0.8 N - CT ABD PELVIS W/O [id number] 00:00[facility]00 [facility] 1955 Sex: F Name: POPEYE MCNALLY [facility] : 1955 Age/S: 66 / F [address] [facility] Unit #: [id number] Loc: [place] [address] Phys: Heber Rainey DO Acct: [id number] Dis Date: Status: ADMIN PHONE #: [phone] Exam Date: 11/05/20211310 FAX #: [phone] Reason: nausea/vomitting EXAMS: CPT CODE: [id number] CT ABD PELVIS W/O CONT 92918 PROCEDURE INFORMATION: Exam: CT Abdomen And Pelvis Without Contrast Exam date and time: 11/05/2021 1:11 PM Age: 66 years old Clinical indication: Nausea and vomiting; Additional info: Nausea/vomitting; dialysis patient TECHNIQUE: Imaging protocol: Computed tomography of the abdomen and pelvis without contrast. Radiation optimization: [facility] use at least one of these dose optimization techniques: automated exposure control; mAand/or kV adjustment per patient size (includes targeted [...] trace bilateral pleural effusions. Heart: There are hussain cifications in the visualized coronary arteries. Liver: Unremarkable. Gallbladder and bile ducts: There has been a cholecystectomy. Pancreas: Unremarkable. Spleen: Unremarkable. Adrenal glands: Thickening of the left adrenal up to 16 mm, indeterminate attenuation of 30-40 Hounsfield units. The right adrenal is unremarkable. Kidneys and ureters: The kidneys are atrophic compatible with ESRD. There aremultiple water attenuation simple cortical cysts bilateral. Extensive renal calcifications. There isno hydronephrosis or perinephric fluid collection. Stomach and bowel: The stomach is moderately diste nded with fluid, otherwise unremarkable. The small bowel is unremarkable. There are colonic diverticula, more numerous in the sigmoid colon. No regional inflammatory changes. Appendix: A normal appendix is identified. Intraperitoneal space: There is no free intraperitoneal fluid or air. No focal fluid collection. Vasculature: Extensive calcified plaque in the abdominal aorta and branch vessels. No aneurysm. Lymph nodes: Unremarkable. PAGE 1 Signed Report (CONTINUED) Name: POPEYE MCNALLY [facility] : 1955 Age/S: 66 / F [address] [place] [address] Unit #: [id number] Loc: [place] [address] Phys: ReddHeber Acct: [id number] Dis Date: Status: ADM IN PHONE #: [phone] Exam Date: 11/05/2021 1311 FAX #: [phone] Reason: nausea/vomitting EXAMS: CPT CODE: [id number] CT ABD PELVIS W/O CONT 98225 (Continued) Urinary bladder: Unremarkable as visualized. Reproductive: Unremarkable as visualized. Bones/joints: The lumbar spine demonstrates moderate degenerative changes at multiple levels. Soft tissues: Fat containing supraumbilical hernia. No herniation of bowel. There is generalized subcutaneous edema. No focal fluid collection. IMPRESSION: 1. Extensive bilateral pulmonary opacities with multifocal areas of consolidation compatible with acute pneumonia, viral versus other infectious and noninfectious etiologies. Commonly reported imaging features of COVID-19 pneumonia arepresent. Other processes such as influenza pneumonia and organizing pneumonia, as can be seen with drug toxicity and connective tissue disease, can cause a similar imaging pattern. (Reference: Carlos)2. The stomach is moderately distended with fluid. There is no evidence for bowel obstruction. 3. Colonic diverticulosis. 4. Severe atherosclerosis. 5. Atrophic kidneys containing multiple simple cortical cyst compatible with end-stage renal disease. 6. Incidental finding of left adrenal thickening, indeterminate by attenuation values.Consider 12 month follow-up adrenal CT. (Reference: Liban) REFERENCES: 1. Carlos Dent, et al., Radiological Society of [place] Expert Consensus Statement on Reporting Chest CT Findings Related to COVID-19. Endorsed by the Society of Thoracic Radiology, the [place] College of Radiology, and RSNA. Published December 13, 2019. 2. Liban PIERCE, et al. Management of Incidental Adrenal Masses: A White Paper of the ACR Incidental Findings Committee. J Am Loren Radiol. 2017;14(8):7385-0138. at 1341 Reported and signed by: Kev Richardson M.D. CC: Ivan Freitas MD; Heber Rainey DO Technologist:Ugo Cardenas RT(R)(CT) CTDI: DLP: Trnscb Date/Time: 11/05/2021 (134) Rivas Orig Print D/T: S: 11/05/2021 (1341) PAGE 2 Signed Report- NAA ISBELL [id number] 00:00:00 [facility] JATIN CORNEJOName: POPEYE MCNALLY : 1955 Sex: F Name: POPEYE MCNALLY [facility] Jatin Cornejo : 1955 Age/S: 66 / F [address] [place] [address] Blvd Unit #: [id number] Loc: [place] [address] Phys: Daniel Rahman MD Acct: [id number] Dis Date: Status: ADMIN PHONE #: [phone] Exam Date: 11/05/2021233 FAX #: [phone] Reason: TO RULE OUT DVT EXAMS: CPT CODE: [id number] DUP VEIN JOSEY 03296 PROCEDURE INFORMATION: Exam: US Duplex Lower Extremity Veins, Bilateral Exam date and time: 11/05/2021 1:59 AM Age: 66 years old Clinical indication: Other: Covid, hypoxia; Additional info: To rule out dvt TECHNIQUE: Imaging protocol: Real-time Duplex ultrasound of the bilateral extremities with 2-D del castillo scale, color Doppler flow and spectral waveform analysis with image documentation. Complete exam focused on the [...] is patent without thrombus. Soft tissues: No flu id collections. IMPRESSION: No evidence for acute DVT of either lower extremity. at 0242 Reported and signed by: Rad Noel M.D. CC: Daniel Rahman MD; Ivan Freitas MD Technologist: Eugenia Downey RDMS(AB)(OB) Trnscb Date/Time: 11/05/2021 (241) CharAM34 Orig Print D/T: S: 11/05/2021 (242) Probe: PAGE 1 Signed Report- CT HEAD/BRAIN W/O [id number] 00:00[facility]00 [facility] : 1955 Sex: F Name: POPEYE MCNALLY [facility] : 1955 Age/S: 66 / F [address] [place] [address] Unit #: [id number] Loc: [place] [address] Phys: Daniel Rahman MD Acct: [id number] Dis Date: Status: ADMIN PHONE #: [phone] Exam Date: 11/05/2021350 FAX #: [phone] Reason: h/o confusion. EXAMS: CPT CODE: [id number] CT HEAD/BRAIN W/O CONT 73188 PROCEDURE INFORMATION: Exam: CT Head Without Contrast [...] Prominent dural base calcification or ossification along the falx cerebri. Heterogeneous somewhat geographic low attenuation in the marleny most consistent with artifact. Cerebral ventricles: No ventriculomegaly. Paranasal sinuses: Mild mucoperiosteal thickening in the right maxillary sinus. The remaining paranasal sinuses are well aerated. Mastoid air cells: Visualized mastoid air cells are clear without effusion. Bones/joints: No acute fracture or dislocation. Soft tissues: No significant abnormality. IMPRESSION: 1. Mildly limited examination secondary to motion and scatter artifact. 2. Mild diffuse cerebral atrophy associated with mild old microangiopathicchange. 3. No acute intracranial abnormality. 4. Mild chronic sinusitis. PAGE 1 Signed Report (CONTINUED) Name: POPEYE MCNALLY [facility] : 1955 Age/S: 66 / F [address] [place] [address] BlvdUnit #: [id number] Loc: [place] [address] Phys: Daniel Rahman MD Acct: [id number] Dis Date: Status: ADM IN PHONE #: [phone] Exam Date: 11/05/2021350 FAX #: [phone] Reason: h/o confusion. EXAMS: CPT CODE: [id number] CT HEAD/BRAIN W/O CONT 67992 (Continued) at 0407 Reported and signed by: Donald Jackson M.D. CC: Daniel Rahman MD; Ivan Freitas MD Technologist:RT Syed(R) CTDI: DLP: Trnscb Date/Time: 11/05/2021 (406) CharTP6 Orig Print D/T: S: 11/05/2021 (406) PAGE 2 Signed ReportBASIC METABOLIC [id number] 21:46:00 Test Item Value Reference Range Interpretation [...] l result CA) called to Leandro STOCK [id number] at 214 3 11/04/21Nurse r ead back result and tech confirmed it's correct? Y LACTIC DEHYDROGENASE(LDH)2021-11-04 21:46:00 Test Item Value Reference Range Interpretation Comments LACTIC DEHYDROGENASE(LDH) (test 384 IUnits/L 84-246 H code = LDH) [id number] 21:46:00 Test Item Value Reference Range Interpretation Comments FERRITIN (test code = JARETH) 2847.4 ng/mL 11.0-306.8 H [id number] 21:22:00 Test Item Value Reference Range Interpretation Comments D-DIMER (test 2100 ng/mlFEU See_Comment HH Critical resu lt called to code = TANWYA FORBES by Maria MOMIN at [facility]) 212011/04/21Nu rse read back result and tech confirmed it's correct?Y THROMBOSIS AND/ OR PULMONARY EMBOLISM AND TH E CLINICAL CUT- OFF VALUE FOR EXCLUSION (500 ng/mL FEU) OF THESE CONDIT IONSIS VALIDATED BY TH E MARINE FIRER OF THE METHOD. A NEGATIVE D-DI LEV RESULT WHEN COMBINED W ITH A CLINICALASSESSM ENT OF LOW PRETEST PROBABI LITY HAS BEEN SHOWN TO H AVEA HIGH NEGATIVE PREDIC TIVE VALUE OF DVT OR PE. D -DIMER VALUES >500 ng/ mL FEU ARE NOT DIAGNOSTIC FOR DVT, PEor DIC WITHOU T OTHER CONFIRMATORY TE STS AND APPROPRIATECLIN ICAL EUALUATIONS. [A utomated message] The sy stem which generated this result transmitted ref erence range: <=500. T he reference range was not u sed to interpret this result as normal/abnormal . C REACTIVE [id number] 21:17:00 Test Item Value Reference Range Interpretation Comments C REACTIVE PROTEIN (test code = 125.0 mg/L <10.0 H CRP) LACTIC [id number] 21:12:00 Test Item Value Reference Range Interpretation Comments LACTIC ACID (test code = LACT) 0.5 mmol/L 0.4-1.9 N CBC W/AUTO [id number] 21:04:00 Test Item Value Reference Range Interpretation [...] 0.00 x10 3/uL 0.0-0.1 N NRBC#) LIPOPROTEIN [id number] 15:05:00 Test Item Value Reference Range Interpretation Comments LIPOPROTEIN LDL 54.6 mg/dL 0-100 N <100 OPTIMAL 100-129 NEAR (test code = LDL) OPTIMAL/AB OVE [id number] 89 HIGH>RA=523 VE RY HIGH*Guidelines provided by the National Cholesterol EducationProgra m Adult Treatment Panel III TROP-I HIGH [id number] 14:40:00 Test Item Value Reference Range Interpretation [...] These resu lts were obtained using [employer]ens [employer] IM TnI Hreagent. Results from di fferent methodologies s hould not becompared to o ne another as quantitative results and URLs mayvary by method. 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 Coronavirus 2019 nCoV [id number] 10:53:00 Test Item Value Reference Range Interpretation Comments Coronavirus 2018 Positive Negative A Performed b y certified nCoV Bedside (supervisor inspection and testing at [facility] code = CtrThe [place] I D NOW [id number]) utilizes isoth ermal [place] EnzymeAmplifica tion Reaction [...] assay. Negative result s do not preclude INGL-VjG-9oleap tion and should not be u sed as the sole basis forp atient management deci sions. Negative result s should beconsidered in the context of a patient's recent exposures,histo ry, presence of clinical sig ns and symptoms consis tentwith COVID-19. BASIC METABOLIC [id number] 10:49:00 Test Item Value Reference Range Interpretation [...] POCGLU) 166 MG/DL - XR CHEST 1 [id number] 00:00:00 [facility] : 1955 Sex: F FAX: Anthony Shaikh MD [place]: [address]: PRE Name: POPEYE MCNALLY FSED : 1955 Age/S: 66/F [address] [facility] Unit #: [id number] Loc: [place], [place] [address] Phys: Anthony Leon MD Acct: [id number] Date: Status: PRE ER PHONE #: Exam Date: 11/04/2021 1025 FAX #: Reason: Weakness EXAMS: CPT CODE: [id number] XR CHEST 1 V 07036 PROCEDURE INFORMATION: Exam: XR Chest Exam date and time: 11/04/2021 10:25 AM Age: 66 years old Clinical indication: Wheezing; Prior surgery; Surgery date: 1-6 months; Surgery type: Dialysis; Additional info: Weakness TECHNIQUE: Imaging protocol: XR of the chest. Views: 1 view. COMPARISON: No relevant prior studies available. FINDINGS: Lungs: Bilateral right greater than left patchy airspace opacities. Pleural spaces: No pleural effusion. No pneumothorax. Heart/Mediastinum: Heart size is mildly enlarged. Aortic calcifications. Bones/joints: No acute osseous abnormality. Soft tissues: Right upper extremity vascular stents noted. IMPRESSION: 1. Patchy bilateral pulmonary opacities. Differential considerations include edema and multifocal pneumonia. at 1054 Reported and signed by: Alisa Moreno M.D. CC: Jhony COLLINS Technologist: Jyotsna Knight RT(R)(CT) Trnscrd Date/Time/By: 11/04/2021 (1051) : By: Mar RamirezRH17 [facility] Print D/T: S: 11/04/2021 (5437) PAGE 1 Signed ReportPOCT GLUCOSE (AUTOMATED)2021-06-20 19:09:24 Test Item Value Reference Range Interpretation Comments POCT GLU (test code = 0931378119) 93 mg/dL 70-110 Lab Interpretation (test code = Normal 08766-6) [facility]. METABOLIC PANEL (44280)2021-06-20 18:00:24 Test Item Value Reference Range Interpretation Comments NA (test code = 139 mmol/L 135-145 7004926796) K (test code = 3.1 mmol/L 3.5-5.0 L 8896990158) CL (test code = 102 mmol/L 98-108 4137748839) CO2 TOTAL (test code = 26 mmol/L 23-31 1444500836) AGAP (test code = 2-16 1999397415) BUN (test code = 29 mg/dL 7-23 H 0951936650) GLUCOSE (test code = 41 mg/dL 70-110 LL 8734642957) CREATININE (test code = 7.61 mg/dL 0.50-1.04 H 3736225310) TOTAL BILI (test code = 1.0 mg/dL 0.1-1.0 8702913395) CALCIUM (test code = 9.5 mg/dL 8.6-10.6 8444832322) T PROTEIN (test code = 7.3 g/dL 6.3-8.2 6290655145) ALBUMIN (test code = 4.1 g/dL 3.5-5.0 9322143444) ALK PHOS (test code = 85 U/L 34-122 7662411452) ALTv (test code = 16 U/L 5-35 1742-6) AST(SGOT) (test code = 35 U/L 13-40 5062919611) eGFR (test code = mL/min/1.73m2 7771903508) CEZAR (test code = CEZAR) Association of [...] tests). Lab Interpretation Abnormal (test code = 97279-7) [facility] [id number] 17:53:17 Test Item Value Reference Interpretation Comments Range TROPONIN I (test 0.031 ng/mL See_Comment [Automated code = 1254526871) message] The system which generated this result [...] biotin. Lab Interpretation Normal (test code = 76243-7) [facility] WITH [id number] 17:49:55 Test Item Value Reference Range Interpretation Comments WBC (test code = See_Comment [Automated 6790-2) message] The sy stem which generated this result transmitted reference range : 4.30 - 11.10 10*3/?L. The reference range was not used to interpret this result as normal/abnormal . RBC (test code = See_Comment L [Automated 139-8) message] The sy stem which generated this [...] (test code = 52.1 fL 39.0-49.9 H 17605-6) RDW-CV (test code = 14.4 % 12.0-15.5 788-0) PLT (test code = See_Comment [Automated 777-3) message] The sy stem which generated this result transmitted reference range : 166 - 358 10*3/ ?L. The reference r benson was not used to interpret this result as normal/abnormal . MPV (test code = 10.6 fL 9.5-12.9 77551-5) NRBC/100 WBC (test See_Comment [Automat ed code = 6519399477) message] The system which generated this result transmitted reference range : 0.0 - 10.0 /100 WBCs. The refer ence range was not u sed to interpret th is result as normal/abnormal . NRBC x10^3 (test code <0.01 See_Comment [Auto mated = 9602340970) message] The s ystem which generated this result transmitted reference range : 10*3/?L. The reference range was not used to interpret this result as normal/abnormal . GRAN MAT (NEUT) % 75.9 % (test code = 770-8) IMM GRAN % (test code 0.70 % = 5713302658) LYMPH % (test code = 16.3 % 736-9) MONO % (test code = 5.6 % 5905-5) EOS % (test code = 1.0 % 713-8) BASO % (test code = 0.5 % 706-2) GRAN MAT x10^3(ANC) 6.63 10*3/uL 1.88-7.09 (test code = 1600350615) IMM GRAN x10^3 (test 0.06 10*3/uL 0.00-0.06 code = 3895953471) LYMPH x10^3 (test code 1.42 10*3/uL 1.32-3.29 = 731-0) MONO x10^3 (test code 0.49 10*3/uL 0.33-0.92 = 742-7) EOS x10^3 (test code = 0.09 10*3/uL 0.03-0.39 711-2) BASO x10^3 (test code 0.04 10*3/uL 0.01-0.07 = 704-7) Lab Interpretation Abnormal (test code = 24928-9) [facility] [id number] 17:44:12 Test Item Value Reference Range Interpretation Comments APTT Patient (test See_Comment [Automat ed code = 3173-2) message] The system which generated this result transmitted reference range : 23 - 38 Seconds . The reference range was not used to interpr et this result as normal/abnormal . CEZAR (test code = CEZAR) [facility] patient population mean normal value for aPTT is 30 seconds. Lab Interpretation Normal (test code = 79856-1) [facility] HospitalPROTHROMBIN TIME / [id number] 17:42:14 Test Item Value Reference Range Interpretation [...] tions. Lab Interpretation (test Normal code = 96629-4) [facility] HospitalLactic Acid Whole [id number] 17:06:14 Test Item Value Reference Range Interpretation Comments LACTIC ACID (test code = 1.72 mmol/L 0.50-2.20 1782685920) Lab Interpretation (test code = Normal 83549-1) [facility] HospitalCT THORAX WO [id number] 17:42:52 HISTORY: Hilar mass. TECHNIQUE: 64-Multidetector noncontrast [...] in the right lobe. Thyroidultrasound study recommended. [facility], Radiant Results Inft User - 07/23/2020 11:44 AM [...] mass in the right lobe. Thyroidultrasound study recommended.[facility] HospitalMR LUMBAR SPINE WO CONTRAST 2020-07-02 15:34:03HISTORY: Back pain running down the lateral right leg. History of multiplefalls. TECHNIQUE: SagittalT2 FRFSE, T1, STIR and axial T2 FRFSE T1 studies oflumbar spines are obtained. Additional coronal H3TRBJO study is alsoobtained. FINDINGS: Mild lumbar levoscoliosis [...] are seen in L3, L4, L5 and S1/J3ucplcrljm bodies, consistentwith benign lipomas. CONCLUSIONS:1. Exaggerated lumbar [...] Multilevel facet arthritis, more at L4-L5 and L5-S1.[facility] CERVICAL SPINE WO [id number] 15:04:27HISTORY: Neck pain radiating down into the [...] noted. For completeevaluation, thyroid ultrasound study recommended. [facility], Radiant Results Inft User - 07/02/2020 10:05AM [...] trachea noted. For completeevaluation, thyroid ultrasound study recommended.University HospitalXR KNEE 3 VW [id number] 13:56:35HISTORY: ?Pain. FINDINGS: AP, lateral, oblique views [...] Mild tricompartment degenerative arthritis of right knee. [facility], Radiant Results Inft User - 07/02/2020 8:57 [...] diabetes.CONCLUSIONS: Mild tricompartment degenerative arthritis of right knee.[facility]"
[2022-07-19 23:46] LABS: Absolute Lymphocytes (CBC) 1.6 K/uL (0.7-4.9); Hematocrit 30.6 % (36.0-45.0); Lymphocytes % 19.6 % (15.3-44.8); MCV 97.1 fL (80-100); MPV 8.3 fL (7.6-11.3); RBC Red Blood Cell Count 3.15 M/uL (3.86-4.86)
[2022-07-20 00:23] LABS: Magnesium 2.3 mg/dL (1.8-2.4)
[2022-07-20 00:30] LABS: Potassium 5.6 mmol/L (3.5-5.1)
[2022-07-20] MEDS ORDERED: ALBUTEROL 2.5 MG/3 ML NEB SOL ONE (01:11)
[2022-07-20] MEDS ORDERED: INSULIN -REGULAR HUMAN 50 UNIT/0.5 ML ML ONE (01:11)
[2022-07-20] MEDS ORDERED: D10W 250 ML IV ONE (01:12)
[2022-07-20] MEDS ORDERED: SOD POLYSTYREN SUL 15 GM/60 ML UCUP ONE (01:12)
[2022-07-20] MEDS ORDERED: CALCIUM GLUCONATE 1 GM IVPB 1 GM/50 ML BAG IV ONE (01:12)
--- NOTE | 2022-07-20 01:22 | EDPHYS ---
Physician Documentation [facility] Name: Valentine Dia Age: 66 yrs Sex: Female : 1955 Arrival Date: 07/19/2022 Time: 19:31 Bed 8 Private MD: ED Physician James Day HPI: 07/19 23:00 This 66 yrs old Black Female presents to ER via Wheelchair with complaints of Leg Pain, cp Dizziness. 23:00 The patient has experienced syncope, lost consciousness. cp 23:00 Onset: The symptoms/episode began/occurred 2 day(s) ago. Duration: This was a single cp episode, that lasted an unknown period of time. Context: the episode(s) was witnessed, by no one, occurred at home, occurred while the patient was walking, Just prior to the episode the patient experienced lightheadedness, weakness. Associated injury: Left lower extremity: left foot, pain, tenderness, Right lower extremity: right knee, pain, tenderness. The patient has been recently seen by a physician: in the [facility], emergency department, 3 day(s) ago, for general weakness after dialysis. Patient reports missing dialysis yesterday due to being too weak. Historical: - Allergies: 19:48 No Known Allergies; hb - PMHx: 19:48 diabetes mellitus; HD - T//Wed; hb - Social history:: Smoking status: Patient denies any tobacco usage or history of. ROS: 23:05 Constitutional: Negative for body aches, chills, fever, poor PO intake. cp 23:05 Eyes: Negative for injury, pain, redness, and discharge. cp 23:05 ENT: Negative for drainage from ear(s), ear pain, sore throat, difficulty swallowing, difficulty handling secretions. 23:05 Cardiovascular: Negative for chest pain, palpitations. 23:05 Respiratory: Negative for cough, shortness of breath, wheezing. 23:05 Abdomen/GI: Negative for abdominal pain, nausea, vomiting, and diarrhea, black/tarry stool, rectal bleeding. 23:05 MS/extremity: Positive for pain, of the right knee and left great toe. 23:05 Neuro: Positive for syncope, weakness, Negative for altered mental status, headache, numbness. 23:05 All other systems are negative. Exam: 23:10 Constitutional: The patient appears in no acute distress, alert, awake, cp non-diaphoretic, non-toxic, well developed, well nourished, obese. 23:10 Head/Face: Normocephalic, atraumatic. cp 23:10 Eyes: Periorbital structures: appear normal, Pupils: equal, round, and reactive to light and accomodation, Extraocular movements: intact throughout, Conjunctiva: normal, no exudate, no injection, Sclera: no appreciated abnormality, Lids and lashes: appear normal, bilaterally. 23:10 ENT: External ear(s): are unremarkable, Nose: is normal, Mouth: Lips: moist, Oral mucosa: pink and intact, moist, Posterior pharynx: Airway: no evidence of obstruction, patent. 23:10 Neck: C-spine: vertebral tenderness, that is mild, appreciated at C4 and C5, crepitus, is not appreciated. 23:10 Chest/axilla: Inspection: normal, Palpation: is normal, no crepitus, no tenderness. 23:10 Cardiovascular: Rate: normal, Rhythm: regular, Edema: is not appreciated, JVD: is not appreciated. 23:10 Respiratory: the patient does not display signs of respiratory distress, Respirations: normal, no use of accessory muscles, no retractions, labored breathing, is not present, Breath sounds: are clear throughout, no decreased breath sounds, no stridor, no wheezing. 23:10 Abdomen/GI: Inspection: abdomen appears normal, Palpation: abdomen is soft and non-tender, in all quadrants. 23:10 Back: pain, is absent, ROM is normal. 23:10 Musculoskeletal/extremity: Extremities: grossly normal except: noted in the right knee: swelling, tenderness, There is no evidence of decreased ROM, deformity, noted in the left great toe: swelling, tenderness, no evidence of decreased ROM, ROM: limited passive range of motion due to pain, in the right knee. 23:10 Neuro: Orientation: to person, place \T\ time. Mentation: able to follow commands, slow to respond, Cerebellar function: Romberg testing is negative, Motor: moves all fours, general weakness with no focal deficits, Sensation: no obvious gross deficits. 07/20 00:31 ECG was reviewed by the Attending Physician. cp Vital Signs: 07/19 19:44 BP 105 / 91; Pulse 73; Resp 18; Temp 97.7; Pulse Ox 100% on R/A; Weight 111.58 kg; hb Height 5 ft. 4 in. (162.56 cm); Pain 8/10; 23:37 BP 124 / 60; Pulse 73; Resp 18; Pulse Ox 100% on R/A; ll3 07/20 02:08 BP 146 / 70; Pulse 79; Resp 16; Pulse Ox 99% on R/A; ll3 07/19 19:44 Body Mass Index 42.22 (111.58 kg, 162.56 cm) hb MDM: 07/19 22:24 Patient medically screened. cp 07/20 00:00 Differential Diagnosis: cardiac arrhythmia, cerebrovascular accident, drug effect, GI cp bleed, seizure, sepsis, vasovagal episode. 01:15 Data reviewed: vital signs, nurses notes, lab test result(s), EKG, radiologic studies, cp CT scan, plain films. 01:15 Test interpretation: by ED physician or midlevel provider: ECG, plain radiologic cp studies. 01:20 Physician consultation: Maggie Lyon PA-C was contacted at 01:20, regarding admission, cp to the telemetry unit. patient's condition. 07/19 22:55 Order name: Basic Metabolic Panel cp 07/19 22:55 Order name: CBC with Diff cp 07/19 22:55 Order name: Magnesium cp 07/19 22:55 Order name: NT PRO-BNP cp 07/19 22:55 Order name: PT-INR cp 07/19 22:55 Order name: Troponin HS cp 07/19 23:47 Order name: Protime (+INR) EDMS 07/19 23:50 Order name: CBC with Automated Diff EDMS 07/19 23:59 Interpretation: Normal except: RBC 3.15; HGB 10.3; HCT 30.6. cp 07/20 00:31 Order name: Basic Metabolic Panel; Complete Time: 03:07 EDMS 07/20 00:58 Interpretation: Normal except: NA 132; K 5.6; CL 97; ANION GAP 19.6; GLUC 227; BUN 103; cp CRE 13.50; GFR 3; CA 6.3. 07/20 00:31 Order name: Troponin High Sensitivity; Complete Time: 03:07 EDMS 07/20 00:31 Order name: NT PRO-BNP; Complete Time: 03:07 EDMS 07/20 00:44 Interpretation: Abnormal: NT PRO-BNP 3120. cp 07/20 00:31 Order name: Magnesium; Complete Time: 03:07 EDMS 07/20 01:28 Order name: SARS RAPID; Complete Time: 02:16 ll3 07/19 22:55 Order name: XRAY Chest (1 view) 07/19 22:55 Order name: EKG; Complete Time: 22:56 cp 07/19 22:55 Order name: Cardiac monitoring; Complete Time: 00:29 cp 07/19 22:55 Order name: EKG - Nurse/Tech; Complete Time: 00:29 cp 07/19 22:55 Order name: US Extremity Venous W Compression Blayne cp 07/19 22:55 Order name: XRAY Foot LEFT 3 View cp 07/19 22:55 Order name: XRAY Knee RIGHT 3 view 07/19 22:55 Order name: CT Head C Spine 07/20 01:59 Order name: PTH Intact; Complete Time: 03:07 EDMS 07/20 01:59 Order name: Vitamin D,1,25 Dihydroxy EDIA 07/20 02:04 Order name: Phosphorus; Complete Time: 03:07 EDMS 07/19 22:55 Order name: IV Saline Lock; Complete Time: 23:27 cp 07/19 22:55 Order name: Labs collected and sent; Complete Time: 23:27 cp 07/19 22:55 Order name: O2 Per Protocol; Complete Time: 23:27 07/19 22:55 Order name: O2 Sat Monitoring; Complete Time: 23:26 cp EC:31 Rate is 72 beats/min. Rhythm is regular. DE interval is prolonged at 232 msec. QRS cp interval is prolonged at 154 msec. QT interval is normal. T waves are Inverted in lead aVR. Interpreted by me. Reviewed by me. Administered Medications: 01:17 Drug: Calcium Gluconate 1 grams Route: IVPB; Infused Over: 60 mins; Site: left ll3 antecubital; :23 Drug: Kayexalate (polystyrene) 15 grams Route: PO; 3 : Drug: Albuterol 2.5 mg Route: Inhalation; 3 : Drug: Insulin Regular Human 10 units {Co-Signature: keAdan (Sari Quevedo RN).} Route: ll3 IVP; Site: left antecubital; 01:32 Drug: D50W 50 ml Route: IVP; Site: left antecubital; ll3 01:47 Drug: Albuterol 2.5 mg Route: Inhalation; ll3 02:13 Drug: Albuterol 2.5 mg Route: Inhalation; ll3 Disposition Summary: 07/20/22 01:22 Hospitalization Ordered Hospitalization Status: Observation cp Provider: Raven Dobson cp Location: Telemetry/MedSurg (observation) cp Condition: Fair cp Problem: new cp Symptoms: are unchanged cp Bed/Room Type: Standard cp Room Assignment: 202(07/20/22 02:20) cg Diagnosis - Weakness cp - Hyperkalemia cp - Hypocalcemia cp - Syncope cp Forms: - Medication Reconciliation Form cp - SBAR form cp Signatures: Dispatcher [employer] EDMS James Palacios PA PA cp Garcia, Cindy, RN RN cg Baxter, Heather, RN RN hb Loubet, Lynsea, RN RN ll3 Sari Quevedo RN RN ke1 Maggie Lyon PA-C PA-Rachel [email or web address] Sari cullen1 Corrections: (The following items were deleted from the chart) 02:02 01:59 Phosphorus ordered. EDMS EDMS 02:20 01:22 cp cg
--- NOTE | 2022-07-20 01:22 | ER ---
Nurse's Notes [facility] Name: Valentine Dia Age: 66 yrs Sex: Female : 1955 Arrival Date: 07/19/2022 Time: 19:31 Bed 8 Private MD: Diagnosis: Weakness;Hyperkalemia;Hypocalcemia;Syncope Presentation: 07/19 19:44 Chief complaint: Intermittent dizziness x 1 week and left lower leg and foot pain after hb fall from standing 3 days ago. Unable to bear weight on left leg. Coronavirus screen: At this time, the client does not indicate any symptoms associated with coronavirus-19. Ebola Screen: No symptoms or risks identified at this time. Risk Assessment: Do you want to hurt yourself or someone else? Patient reports no desire to harm self or others. Onset of symptoms was July 03, 2022. 19:44 Method Of Arrival: Wheelchair hb 19:44 Acuity: TIRSO 3 hb 20:00 Initial Sepsis Screen: Does the patient meet any 2 criteria? No. Patient's initial ke1 sepsis screen is negative. Does the patient have a suspected source of infection? No. Patient's initial sepsis screen is negative. Triage Assessment: 20:00 General: Appears in no apparent distress. Behavior is appropriate for age. ke1 20:00 Pain: Complains of pain in left leg Pain currently is 3 out of 10 on a pain scale. at ke1 worst was 7 out of 10 on a pain scale. level that patient reports is acceptable is 5 out of 10 on a pain scale. Historical: - Allergies: 19:48 No Known Allergies; hb - PMHx: 19:48 diabetes mellitus; HD - T/TH/Sat; hb - Social history:: Smoking status: Patient denies any tobacco usage or history of. Screenin:00 Abuse screen: Denies threats or abuse. Nutritional screening: No deficits noted. ke1 Tuberculosis screening: No symptoms or risk factors identified. Fall Risk Fall in past 12 months (25 points). No secondary diagnosis (0 pts). IV access (20 points). Ambulatory Aid- None/Bed Rest/Nurse Assist (0 pts). Gait- Normal/Bed Rest/Wheelchair (0 pts) Mental Status- Oriented to own ability (0 pts). Total Garcia Fall Scale indicates High Risk Score (45 or more points). Fall prevention measures have been instituted. Side Rails Up X 2 Frequent Obs/Assessments Occuring. Assessment: 07/20 00:47 Reassessment: Patient is alert, oriented x 3, equal unlabored respirations, skin ke1 warm/dry/pink. sleeping quietly. 02:08 Reassessment: No changes from previously documented assessment. Patient and/or family ll3 updated on plan of care and expected duration. Pain level reassessed. Patient is alert, oriented x 3, equal unlabored respirations, skin warm/dry/pink. 02:25 Reassessment: 2nd fl called for report, nurse will call back. ke1 Vital Signs: 07/19 19:44 BP 105 / 91; Pulse 73; Resp 18; Temp 97.7; Pulse Ox 100% on R/A; Weight 111.58 kg; hb Height 5 ft. 4 in. (162.56 cm); Pain 8/10; 23:37 BP 124 / 60; Pulse 73; Resp 18; Pulse Ox 100% on R/A; ll3 07/20 02:08 BP 146 / 70; Pulse 79; Resp 16; Pulse Ox 99% on R/A; ll3 07/19 19:44 Body Mass Index 42.22 (111.58 kg, 162.56 cm) hb ED Course: 07/19 19:31 Patient arrived in ED. bp1 19:47 Triage completed. hb 20:00 Arm band placed on. ke1 20:00 Bed in low position. Call light in reach. Side rails up X 1. Side rails up X2. ke1 22:22 James Palacios PA is PHCP. cp 22:22 James Day MD is Attending Physician. cp 23:27 Inserted saline lock: 22 gauge in left antecubital area, using aseptic technique. Blood ll3 collected. 23:30 Sari Quevedo, TAWNYA is Primary Nurse. ke1 07/20 01:19 Raven Dobson MD is Hospitalizing Provider. cp 01:44 XRAY Chest (1 view) In Process Unspecified. EDMS 01:44 XRAY Foot LEFT 3 View In Process Unspecified. EDMS 01:44 XRAY Knee RIGHT 3 view In Process Unspecified. EDMS 01:45 CT Head C Spine In Process Unspecified. EDMS 01:49 US Extremity Venous W Compression Blayne In Process Unspecified. EDMS 02:34 No provider procedures requiring assistance completed. ll3 Administered Medications: 01:17 Drug: Calcium Gluconate 1 grams Route: IVPB; Infused Over: 60 mins; Site: left ll3 antecubital; 01:23 Drug: Kayexalate (polystyrene) 15 grams Route: PO; ll3 01:27 Drug: Albuterol 2.5 mg Route: Inhalation; ll3 01:31 Drug: Insulin Regular Human 10 units {Co-Signature: subhash1 (Sari Quevedo RN).} Route: ll3 IVP; Site: left antecubital; 01:32 Drug: D50W 50 ml Route: IVP; Site: left antecubital; ll3 01:47 Drug: Albuterol 2.5 mg Route: Inhalation; ll3 02:13 Drug: Albuterol 2.5 mg Route: Inhalation; ll3 Medication: 02:34 VIS not applicable for this client. ll3 Outcome: 01:22 Decision to Hospitalize by Provider. cp 03:19 Patient left the ED. mm9 Signatures: Dispatcher [employer] EDMS James Palacios, DILIP PA cp Janeen Ashraf, RN RN Marshall, [facility] Jana May RN RN ll3 Ebrottie, Kouassi, RN RN ke1 Olga Lidia [facility] Sari cullen1 Corrections: (The following items were deleted from the chart) 07/19 19:49 19:44 BP 86 / 46; Pulse 73bpm; Resp 18bpm; Pulse Ox 100% RA; Temp 97.7F; hb hb 19:49 19:44 Acuity: TIRSO 2 hb hb 07/20 00:46 07/19 20:00 Fall Risk No fall in past 12 months (0 pts). No secondary diagnosis (0 ke1 pts). IV access (20 points). Ambulatory Aid- None/Bed Rest/Nurse Assist (0 pts). Gait- Normal/Bed Rest/Wheelchair (0 pts) Mental Status- Oriented to own ability (0 pts). Total Garcia Fall Scale indicates No Risk (0-24 pts). ke1
[2022-07-20 02:07] LABS: SARS-CoV-2 Antigen Rapid Res Negative (Negative)
--- NOTE | 2022-07-20 02:24 | P.HP ---
Certification for Inpatient Patient admitted to: Inpatient With expected LOS: <2 Midnights Patient will require the following post-hospital care: None Practitioner: I am a practitioner with admitting privileges, knowledge of patient current condition, hospital course, and medical plan of care. Services: Services provided to patient in accordance with Admission requirements found in Title 42 Section 412.3 of the Code of Federal Regulations Patient History Date of Service: 07/20/22 Primary Care Provider: Dr. Moreno Reason for admission: ESRD History of Present Illness: Patient is a 66 year old female with history of ESRD on HD ,,Wed Hypertension, Hyperlipidemia, and non-insulin dependent type 2 diabetes who presented to the ED with complaints of generalized weakness, multiple falls, and left knee pain. Patient fell 3 days ago and has not been able to bear weight on her left leg since. She also missed HD on Wednesday. Her labs today are significant for Cr 13.5, potassium 5.6, calcium 6.3, BUN 103, hgb 10.3, BNP 3120. She was given albuterolx3, insulin, D50, calcium gluconate, and kayexalate in ED. Chest xray showed mild pulmonary venous congestion. Knee xray negative for acute fracture. Left foot xray showed acute fracture of head of second proximal phalanx with intra-articular involvement. Head/spine CT showed mild chronic small vessel ischemic white matter changes, mild cervical spondylosis, but negative for acute findings. Ultrasound negative for DVT in bilateral lower extremities. Patient is admitted for further management. Allergies No Known Drug Allergies Allergy (Unverified 04/01/15 21:13) Unknown Home Medications: Aspirin [Aspir-Low] 81 mg PO DAILY 04/22/17 Furosemide 40 mg PO DAILY 04/22/17 Isosorbide Mononitrate [Isosorbide Mononitrate ER] 60 mg PO DAILY 04/22/17 Simvastatin 10 mg PO DAILY 04/22/17 carvediloL [Carvedilol] 25 mg PO DAILY 04/22/17 glipiZIDE [Glucotrol] 10 mg PO DAILY 04/22/17 - Past Medical/Surgical History Diabetic: Yes -: ESRD on HD ([facility] [place]) -: Type 2 Diabetes, Non-Insulin Dependent -: Hyperlipidemia -: Spinal Stenosis -: Hypertension -: Left Breast Mass Excision Psychosocial/ Personal History: Patient has a son who helps take care of her. - Family History Family History: Reviewed- Non-Contributory - Social History Smoking Status: Never smoker Alcohol use: No CD- Drugs: No Caffeine use: Yes Place of Residence: Home Review of Systems General: Weakness Musculoskeletal: Leg Pain Physical Examination - Physical Exam General: Alert, In no apparent distress HEENT: Atraumatic, PERRLA, EOMI, Sclerae nonicteric Neck: Supple, 2+ carotid pulse no bruit, No LAD, Without JVD or thyroid abnormality Respiratory: Clear to auscultation bilaterally, Normal air movement Cardiovascular: Regular rate/rhythm, Normal S1 S2 Gastrointestinal: Normal bowel sounds, No tenderness Musculoskeletal: No tenderness Integumentary: No rashes Neurological: Normal speech, Normal strength at 5/5 x4 extr, Normal tone, Normal affect - Studies Laboratory Data (last 24 hrs) 07/20/22 01:56: Phosphorus Cancelled 07/19/22 23:25: PT 11.0, INR 1.00 07/19/22 23:25: WBC 8.20, Hgb 10.3 L, Hct 30.6 L, Plt Count 230 07/19/22 23:25: Sodium 132 L, Potassium 5.6 H*, BUN 103 H, Creatinine 13.50 H*, Glucose 227 H, Magnesium 2.3 Assessment and Plan - Problems (Diagnosis) (1) ESRD (end stage renal disease) on dialysis Current Visit: Yes Status: Chronic (2) Secondary renal hyperparathyroidism Current Visit: Yes Status: Acute (3) Hypertension Current Visit: Yes Status: Chronic Qualifiers: Hypertension type: primary hypertension Qualified Code(s): I10 - Essential (primary) hypertension (4) Generalized weakness Current Visit: Yes Status: Acute (5) Recurrent falls Current Visit: Yes Status: Acute (6) Phalanx fracture, foot Current Visit: Yes Status: Acute Qualifiers: Encounter type: initial encounter Toe: lesser toe Fracture type: closed Phalanx: proximal Fracture alignment: nondisplaced Laterality: left Qualified Code(s): S92.515A - Nondisplaced fracture of proximal phalanx of left lesser toe(s), initial encounter for closed fracture - Plan -Nephrology consult. Renal diet and renal panel ordered. HD in morning -Monitor patient on telemetry -Received hyperkalemia treatment in ED: kayexalate, calcium, albuterol, insulin -Hyperphosphatemia, hypocalcemia, and elevated PTH suggesting secondary hyperparathyroidism -Physical therapy consult -ACHS accu checks with mild sliding scale. A1C ordered -Monitor and replete electrolytes per protocol -Reconcile and continue home medications -Heparin for VTE prophylaxis -Full code Discharge Plan: Home Plan to discharge in: 48 Hours - Advance Directives Does patient have a Living Will: No Does patient have a Durable POA for Healthcare: No - Code Status/Comfort Care Code Status Assessed: Yes (Full) Critical Care: No Time Spent Managing Pts Care (In Minutes): 50
[2022-07-20 02:27] LABS: Phosphorus 7.5 mg/dL (2.5-4.9)
[2022-07-20] MEDS ORDERED: ACETAMINOPHEN 500 MG TAB PO PRN (02:59)
[2022-07-20] MEDS ORDERED: GLUCAGON 1 MG/VIAL IM PRN (02:59)
[2022-07-20] MEDS ORDERED: ONDANSETRON 4 MG/2 ML VIAL IV PRN (02:59)
[2022-07-20] MEDS ORDERED: D50W 25 GM/50 ML SYRINGE IV PRN (02:59)
[2022-07-20] MEDS ORDERED: D10W 125 ML IV PRN (03:06)
[2022-07-20 05:08] VITALS: BMI 42.2
[2022-07-20 06:29] LABS: Albumin 2.9 g/dL (3.4-5.0); Bilirubin Total 0.4 mg/dL (0.2-1.0); Magnesium 2.2 mg/dL (1.8-2.4); Phosphorus 7.9 mg/dL (2.5-4.9); Protein, Total 6.8 g/dL (6.4-8.2)
[2022-07-20 06:33] LABS: Potassium 5.8 mmol/L (3.5-5.1)
[2022-07-20 06:41] LABS: Absolute Lymphocytes (CBC) 1.5 K/uL (0.7-4.9); Hematocrit 28.5 % (36.0-45.0); Lymphocytes % 16.4 % (15.3-44.8); MCV 96.4 fL (80-100); MPV 8.4 fL (7.6-11.3); RBC Red Blood Cell Count 2.95 M/uL (3.86-4.86)
[2022-07-20] MEDS: INSULIN -REGULAR HUMAN 50 UNIT/0.5 ML ML SQ SCH ×4 (07:30→20:22)
[2022-07-20] MEDS: HEPARIN 5000 UNIT/ML 1 ML VIAL SQ SCH ×2 (08:59→17:11)
[2022-07-20] MEDS: carvediloL 25 MG TAB PO SCH ×2 (14:19→20:23)
--- NOTE | 2022-07-20 15:56 | EKG ---
Test Date: 2022-07-20 Test Time: 00:24:42 Director Export: LL MEASUREMENT RESULTS: Intervals: Rate: 72 DE: 232 QRSD: 154 QT: 462 QTc: 505 [place]: P: 59 DE: 232 QRS: 22 T: 49 INTERPRETIVE STATEMENTS: Sinus rhythm with 1st degree AV block Right bundle branch block Abnormal ECG Compared to ECG 04/22/2017 08:54:58 First degree AV block now present Electronically Signed On 07-20-22 15:55:11 CDT by Tod Lopez
[2022-07-20] MEDS ORDERED: ATORVASTATIN 10 MG TAB PO SCH (21:00)
--- NOTE | 2022-07-20 21:38 | CON ---
Date of Consultation: 07/20/2022 Chief Complaint: End-stage renal disease, severe hyperkalemia, volume overload, and shortness of marcelino ath. History Of Present Illness: The patient is a 66-year-old woman with history of end-stage renal disea se on hemodialysis. She has hypertension, hyperlipidemia, and diabetic kidney disease and presented to the emergency room because of generalized weakness, multiple falls, left knee pain, and shortness of breath. Patient denies chest pain. Denies syncope or seizure. The patient had at least 3 episod es of recent falls over last several days. She also needed dialysis on Wednesday and she was found to have elevated potassium of 6.1, calcium was low at 6.3, BUN 103, and hemoglobin 10.3. BNP 3120. Th e patient was treated for hyperkalemia and she received Kayexalate, calcium gluconate and IV insulin with dextrose to stabilize potassium and emergent dialysis was requested by me to dialyze the patient and to treat hyperkalemia. The patient had x-ray done, which showed acute fracture of the head of t he 2nd proximal phalanx with intra-articular involvement of the left foot. CT scan of the head and s pine showed mild chronic small-vessel ischemic disease and mild cervical spondylosis. The patient strickland d ultrasound with Doppler done to rule out DVT. Review of Systems: General: Denies fever or chills. Eyes: Denies vision changes. Ears, Nose, Mouth And Throat: Denies sore throat or earache. Respiratory: Denies wheezing. Shortness of breath with activities. Denies PND or orthopnea. Cardiovascular: Denies chest pain or syncope. GI: Denies nausea or vomiting. : Denies dysuria or hematuria. All other systems are reviewed and all are negative. Past Medical History: End-stage renal disease on hemodialysis, diabetes mellitus, hyperlipidemia, sp inal stenosis, hypertension, and left breast mass excision. Family History: No kidney disease in the family. Social History: Denies tobacco, alcohol, or illicit drugs. Physical Examination: General: Patient is alert, oriented, not in acute distress. Neck: Supple. No JVD. No bruits. Lungs: Few rhonchi, crackles bilaterally at bases. Heart: S1, S2. No pericardial friction or rub. Abdomen: Soft, benign, nontender. Extremities: Slight edema in both legs. Neurologic: Moving extremities. Cranial nerves intact. Laboratory Data: Sodium 132, potassium 6.2, BUN 103, creatinine 13.5, glucose 227. Impression And Plan: 1.End-stage renal disease. The patient has hyperkalemia, fluid overload. Patient will have urgent dialysis to treat fluid overload and provide metabolic clearance to control potassium. Patient will resume low-potassium diet. 2.Secondary hyperparathyroidism. Continue to monitor calcium and phosphorus. Patient will have blo od work to re-evaluate calcium level. 3.Hypertension. Continue current blood pressure medication. 4.Diabetes mellitus, uncontrolled. Adjust insulin. 5.Hyperkalemia, severe. The patient received treatment to stabilize potassium and she will have carlitos lysis to treat hyperkalemia. 6.Anemia in chronic kidney disease. Monitor hemoglobin level and adjust ÁNGEL. EB/MODL Voice ID: [id number] Report ID: [id number]
[2022-07-21] MEDS: HEPARIN 5000 UNIT/ML 1 ML VIAL SQ SCH ×3 (00:49→16:38)
[2022-07-21 04:18] LABS: Absolute Lymphocytes (CBC) 1.2 K/uL (0.7-4.9); Hematocrit 27.5 % (36.0-45.0); Lymphocytes % 20.9 % (15.3-44.8); MCV 96.4 fL (80-100); MPV 8.2 fL (7.6-11.3); RBC Red Blood Cell Count 2.86 M/uL (3.86-4.86)
[2022-07-21 04:37] LABS: Albumin 2.6 g/dL (3.4-5.0); Bilirubin Total 0.6 mg/dL (0.2-1.0); Magnesium 2.1 mg/dL (1.8-2.4); Phosphorus 6.4 mg/dL (2.5-4.9); Potassium 4.3 mmol/L (3.5-5.1); Protein, Total 6.9 g/dL (6.4-8.2)
[2022-07-21] MEDS: INSULIN -REGULAR HUMAN 50 UNIT/0.5 ML ML SQ SCH ×3 (07:30→16:46)
[2022-07-21] MEDS: CALCIUM CARBONATE CHEW 500MG TAB PO SCH ×3 (07:59→16:38)
[2022-07-21] MEDS: CALCIUM ACETATE 667 MG TAB PO SCH ×3 (08:00→16:39)
[2022-07-21 08:01] VITALS: BP 131/54
[2022-07-21] MEDS: carvediloL 25 MG TAB PO SCH ×2 (08:06→14:00)
[2022-07-21] MEDS ORDERED: FUROSEMIDE 40 MG TABLET PO SCH (09:00)
[2022-07-21] MEDS ORDERED: ASPIRIN EC 81 MG TAB PO SCH (09:00)
[2022-07-21] MEDS ORDERED: ISOSORBIDE MONO SR 60 MG TAB PO SCH (09:00)
[2022-07-21] MEDS ORDERED: CALCITROL 0.25 MCG CAP PO SCH (09:00)
[2022-07-21] MEDS ORDERED: HOME MED 1 EA UNK (Simvastatin [Simvastatin] 10 MG Tablet) PO SCH (09:00)
[2022-07-21 09:25] VITALS: TEMP 97.5
[2022-07-21 09:27] VITALS: O2SAT 98
[2022-07-21] MEDS ORDERED: EPOETIN ALFA 10,000 UNIT/ML VIAL IV SCH (11:30)
--- NOTE | 2022-07-21 12:23 | CON ---
Date of Consultation: 07/21/2022 Reason For Consultation: Elevated BUN and creatinine, fluid management. History Of Present Illness: This is a pleasant. DICTATION ENDS HERE SOUMYA Voice ID: [id number] Report ID: [id number]
--- NOTE | 2022-07-21 12:50 | PN ---
Date of Progress Note: 07/21/2022 Subjective: The patient was admitted with fall, foot fracture. The patient received dialysis yester day. Physical Examination: Vital Signs: Blood pressure 131/54, pulse of 72. Afebrile. Chest: Clear to auscultation. Heart: S1, S2. Regular. Systolic murmur. Abdomen: No organomegaly. Extremities: Trace edema. Neurologic: Alert. No focality. Laboratory Data: WBC 5.6, H and H 9.4/27.5. Sodium 137, potassium 4.3, bicarb 27, BUN 61, creatinin e 8.8, calcium 7.6, phosphorus 6.4. Albumin 2.6. Corrected calcium is 8.8. Current Medications: The patient on include; 1.Aspirin. 2.Calcium carbonate. 3.Carvedilol 25 b.i.d. 4.Atorvastatin. 5.Isosorbide. 6.PhosLo. 7.Lasix. Assessment And Plan: 1.End-stage renal disease, slightly on the over volume side. We will do dialysis again today and we will follow up the patient. 2.Over volume. We will follow up the patient's condition after the dialysis today. The patient rec eived dialysis yesterday. 3.Hyponatremia. We will dialyze on high sodium bath and we will follow up. 4.Anemia of chronic kidney disease. Resume ÁNGEL. 5.Secondary hyperparathyroidism. Continue PhosLo. Followup phosphorus. 6.Fall with foot fracture. We will follow up with primary. SOUMYA Voice ID: [id number] Report ID: [id number]
--- NOTE | 2022-07-21 16:18 | RAD REPORT ---
EXAM DESCRIPTION: RAD - Chest Single View - 07/19/2022 11:51 pm CLINICAL HISTORY: 66 years Female, fall TECHNIQUE: 1 view (Single frontal view of the chest) COMPARISON: 08/10/2021 FINDINGS: LINES AND TUBES: Vascular stents right upper extremity and axillary region. CARDIOVASCULAR STRUCTURES: Cardiomegaly. Mild pulmonary venous congestion versus projectional artifac t. LUNGS: No confluent areas of acute consolidation. PLEURA: No layering pleural effusions. No pneumothorax. BONES: No acute osseous abnormality of the thorax. IMPRESSION: 1. Mild pulmonary venous congestion versus projectional artifact. Electronically signed by: Octavio Edmond MD 07/20/2022 12:41 AM CDT Due to temporary technical issues with the PACS/Fluency reporting system, reports are being signed by the in house radiologists without review as a courtesy to insure prompt reporting. The interpreting radiologist is fully responsible for the content of the report.
--- NOTE | 2022-07-21 16:27 | RAD REPORT ---
EXAM DESCRIPTION: RAD - Knee Right 3 View - 07/19/2022 11:51 pm CLINICAL HISTORY: 66 years Female, PAIN TECHNIQUE: 3 views COMPARISON: None. FINDINGS: BONES/JOINT: No acute fracture or dislocation. Mild tricompartment joint space narrowing . No marginal osteophytes or subchondral sclerosis. Bones are demineralized. SOFT TISSUES: Tiny suprapatellar joint effusion. No radiopaque foreign body. Severe ASVD (atheros clerotic vascular disease). IMPRESSION: 1. No acute fracture. 2. Mild tricompartment joint space narrowing. Electronically signed by: Octavio Edmond MD 07/20/2022 12:51 AM CDT Due to temporary technical issues with the PACS/Fluency reporting system, reports are being signed by the in house radiologists without review as a courtesy to insure prompt reporting. The interpreting radiologist is fully responsible for the content of the report.
--- NOTE | 2022-07-21 16:29 | RAD REPORT ---
EXAM DESCRIPTION: US - Extrem Venous W Compress Blayne - 07/20/2022 12:25 am CLINICAL HISTORY: 66 years Female, PAIN bilateral lower extremity pain TECHNIQUE: Sagittal and axial del castillo scale and color Doppler images, including compression images, obt ained of the bilateral common femoral, femoral, popliteal, posterior tibial veins. Doppler wave for ms from the segments also recorded. Doppler and color Doppler interrogation performed of the saphen ofemoral junction. COMPARISON: None. FINDINGS: Color Doppler and del castillo scale imaging of the bilateral lower extremity deep venous structur es demonstrate no evidence of intraluminal thrombus. Normal compressibility of all deep venous segm ents. Normal phasic spectral wave forms, which demonstrate normal augmentation response and and nor mal directional flow. Calf veins: Venous flow demonstrated in the imaged segments. IMPRESSION: 1. Negative for bilateral lower extremity deep venous thrombosis. Electronically signed by: Octavio Edmond MD 07/20/2022 12:42 AM CDT Due to temporary technical issues with the PACS/Fluency reporting system, reports are being signed by the in house radiologists without review as a courtesy to insure prompt reporting. The interpreting radiologist is fully responsible for the content of the report.
--- NOTE | 2022-07-21 16:31 | RAD REPORT ---
EXAM DESCRIPTION: CT - Head C Spine Mpr Wo Con - 07/20/2022 12:02 am CLINICAL HISTORY: 66 years Female, dizziness TECHNIQUE: Helical CT axial images are obtained of the brain and cervical spine without IV contrast. Multiplanar reconstruction. This exam was performed according to our departmental dose-optimization program, which includes automated exposure control, adjustment of the mA and/or kV according to patie nt size and/or use of iterative reconstruction technique. COMPARISON: CT brain 08/10/2021 FINDINGS: BRAIN: BRAIN: No infarcts. No parenchymal hemorrhage, intra-axial mass, mass effect, or midline shift. No ab normal extra-axial fluid collections. Mild deep and periventricular white matter hypodensities. VENTRICLES: Ventricles are normal in size and configuration. No hydrocephalus. CALVARIUM: Bone windows show no skull fracture or calvarial lesions. PARANASAL SINUSES AND MASTOIDS: Clear paranasal sinuses. Mastoid air cells are clear. CERVICAL SPINE: VERTEBRA: There is straightening of the cervical spine. No acute fracture or subluxation. Cervical vertebra are normal in height. Craniocervical junction is intact. Moderate anterior marginal osteo phytes at C5. Mild anterior marginal osteophytes at C6. DISCS: Intervertebral discs are unremarkable. LEVELS: From the C2-C3 through the C7-T1 levels, no significant canal or foraminal stenosis. SOFT TISSUES: Paravertebral soft tissues are unremarkable. IMPRESSION: 1. No acute intracranial disease. 2. Mild chronic small vessel ischemic white matter changes. 3. No acute fracture or CT evidence of traumatic injury to cervical spine. 4. Mild cervical spondylosis. Electronically signed by: Octavio Edmond MD 07/20/2022 12:47 AM CDT Due to temporary technical issues with the PACS/Fluency reporting system, reports are being signed by the in house radiologists without review as a courtesy to insure prompt reporting. The interpreting radiologist is fully responsible for the content of the report.
--- NOTE | 2022-07-21 16:32 | RAD REPORT ---
EXAM DESCRIPTION: RAD - Foot Left 3 View - 07/19/2022 11:51 pm CLINICAL HISTORY: 66 years Female, PAIN TECHNIQUE: 3 views COMPARISON: 07/18/2022 FINDINGS: BONES/JOINT: Fracture head of second proximal phalanx with intra-articular involvement. Re maining osseous structures are intact without fracture or dislocation. Joint spaces are unremarkable. Mild plantar calcaneal spurs and mild retrocalcaneal spurs. Bones are demineralized. SOFT TISSUES: Unremarkable. No radiopaque foreign body. Severe ASVD (atherosclerotic vascular disea se). IMPRESSION: 1. Acute fracture head of second proximal phalanx with intra-articular involvement. Electronically signed by: Octavio Edmond MD 07/20/2022 12:50 AM CDT Due to temporary technical issues with the PACS/Fluency reporting system, reports are being signed by the in house radiologists without review as a courtesy to insure prompt reporting. The interpreting radiologist is fully responsible for the content of the report.
[2022-07-23 22:49] LABS: Vitamin D 1,25-Dihydroxy Total <8 pg/mL (18-72); Vitamin D,1,25-OH2, D2 <8 pg/mL
== END 2022-07-21 16:51 | disposition home health service (06) | DRG 640 ==
LOC: ER 19:25 → ERHOLD 07-20 02:17 → 2ND 07-20 02:54
PROVIDERS: ADMIT Hospitalist; ATTEND Hospitalist
PROC: 5A1D70Z Performance of Urinary Filtration, Intermittent, Less than 6 Hours Per Day (ICD-10-PCS; principal; 2022-07-20)
DX: E87.5 Hyperkalemia (principal); N18.6 End stage renal disease; I12.0 Hypertensive chronic kidney disease with stage 5 chronic kidney disease or end stage renal disease; E11.22 Type 2 diabetes mellitus with diabetic chronic kidney disease; D63.1 Anemia in chronic kidney disease; E87.1 Hypo-osmolality and hyponatremia; E87.70 Fluid overload, unspecified; E78.5 Hyperlipidemia, unspecified; E21.1 Secondary hyperparathyroidism, not elsewhere classified; M47.892 Other spondylosis, cervical region; S92.515A Nondisplaced fracture of proximal phalanx of left lesser toe(s), initial encounter for closed fracture; Z99.2 Dependence on renal dialysis; Z91.15 Patient's noncompliance with renal dialysis; Z91.81 History of falling; Z79.82 Long term (current) use of aspirin; Z79.84 Long term (current) use of oral hypoglycemic drugs; Z79.899 Other long term (current) drug therapy; Z20.822 Contact with and (suspected) exposure to COVID-19; W18.30XA Fall on same level, unspecified, initial encounter; Y93.9 Activity, unspecified; Y92.9 Unspecified place or not applicable
CPT/HCPCS: 36415; 70450; 71045; 72125; 80048; 80053; 80069; 82652; 82947; 83036; 83735; 83880; 83970; 84100; 84484; 85025; 85610; 87811; 90935; 93005; 93970; 96374; 96375; 97116; 97161; 97530; 99284; J0610; J1644; J1815

== ENCOUNTER 2023-04-29 08:36 | Emergency (ER) | payer OTHER ==
--- OUTSIDE RECORDS SUMMARY | 2023-04-29 09:00 | XMS REPORT | Continuity of Care Document ---
:1955 Author Organization [facility] [place] [facility] t Address [address] [facility] [address] [place] [address] Care Team Providers Name Role Phone PCP, PATIENT DOES NOT HAVE A Primary Care Physician Unavaila ble Ivan Freitas Attending Clinician Unavailable Ruperto Castillo MD Attending Clinician Doctor Unassigned, [place] Attending Clinician Unavailable Only, Adc Test Attending Clinician Unavailable Octavio Adams MD Attending Clinician Radiology Attending Clinician Unavailable RADIOLOGY Attending Clinician Unavailable Ivan Freitas Admitting Clinician Unavailable Payers Payer Name Policy Type Policy Number Effective Date Expiration Date S nesha MEDICARE PART A [id number] 2006 \\T\\ B 00:00:00 MEDICAID OF [place] [id number] 2015 00:00:00 Problems Condition Condition Condition Status Onset Resolution Last Treating Co mments Source Name Details Category Date Date Treatment Clinician Date HLD HLD Disease Active Overview: Univer s (hyperlipi (hyperlipi 2-23 Formattin ity of demia) demia) 00:00: g of this [place] 00 note Medical might be Branch different from the original. ICD10 Diagnosis Term Shoe Ironer Utility Allergic Allergic Disease Active Unive rs rhinitis rhinitis 2-23 ity of 00:00: [place] [address] Medical Branch Insomnia Insomnia Disease Active Unive rs 2-23 ity of 00:00: [place] [address] Medical Branch Edema Edema Disease Active Univers 2-23 ity of 00:00: [place] 00 [...] different from the original. ICD10 Diagnosis Term Shoe Ironer Utility Arthropath Arthropath Disease Active 2006-09 Overview : Univers y y 0-10 Formattin ity of 00:00: g of this [place] note Medical might be Branch different from the original. ICD10 Diagnosis Term Shoe Ironer Utility Allergies, Adverse Reactions, Alerts Allergy Allergy Status Severity Reaction(s) Onset Inactive Treating Comm ents Source Name Type Date Date Clinician No Known DA Active U [facility] Allergie 2-15 Clear s 00:00: [place] 00 [facility] CLONIDIN DRUG Active EP Effects Univ ers E INGREDI 2 ity of 00:00: [facility] Branch Clonidin Propensi Active Extra Univer s e ty to pyramidal 10-23 ity of adverse effects 00:00: [place] reaction 00 Medical s [place] Social History Social Habit Start Date Stop Date Quantity Comments Source Exposure to Not sure University of SARS-CoV-2 (event) [facility] History of tobacco Cigarette Smoker University of use [facility] Alcohol intake 2018-07-21 2018-07-21 0 /d University of 00:00:00 00:00:00 [facility] Cigarette 2017-03-10 2017-03-10 University of pack-years 00:00:00 00:00:00 [facility] Tobacco use and 2017-03-10 2017-03-10 Never used Universit y of exposure 00:00:00 00:00:00 [facility] Tobacco Comment 2017-03-10 2017-03-10 says she quit 2 Univ ersity of 00:00:00 00:00:00 weeks ago [facility] Cigarettes smoked 2017-03-10 2017-03-10 Univers ity of current (pack per 00:00:00 00:00:00 ) - Reported Branch Sex [birth year] Universit y of 00:00:00 00:00:00 [facility] Branch Smoking Status Start Date Stop Date Source Smoker, current status 2017-03-10 00:00:00 Unive rsity of [facility] unknown Branch Medications Ordered Filled Start Stop Current Ordering Indication Dosage Frequency Signature Comments Components Source Medication Medication Date Date Medication? Clinician (SIG) Name Name folic 2017-09 Yes 1{tbl} Take 1 Univers acid/vit B 0-31 tablet by ity of complex and 20:09: mouth. [place] [address] Medical ([facility] ORAL) folic 2017-09 Yes 1{tbl} Take 1 Univers acid/vit B 0-31 tablet by ity of complex and 20:09: mouth. [address] ([facility] ORAL) folic 2017-09 Yes 1{tbl} Take 1 Univers acid/vit B 0-31 tablet by ity of complex and 20:09: mouth. [place] [address] Medical ([facility] Branch ORAL) folic 2017-09 Yes 1{tbl} Take 1 Univers acid/vit B 0-31 tablet by ity of complex and 20:09: mouth. [place] [address] Medical ([facility] ORAL) folic 2017-09 Yes 1{tbl} Take 1 Univers acid/vit B 0-31 tablet by ity of complex and 20:09: mouth. [place] [address] Medical [facility] folic 2017-09 Yes 1{tbl} Take 1 Univers acid/vit B 0-31 tablet by ity of complex and 20:09: mouth. [place] [address] Medical ([facility] ORAL) isosorbide 2017-09 Yes 60mg Take 60 mg U nivers mononitrate 0-31 by mouth ity of (IMDUR) 60 19:49: daily. [place] mg 24 hr 19 Medical tablet Branch carvedilol 2017-09 Yes 25mg Take 25 mg U nivers (COREG) 25 0-31 by mouth 2 ity of mg tablet 19:49: (two) [place] 19 times Medical daily with Branch meals. aspirin 81 2017-09 Yes 81mg Take 81 mg U nivers mg tablet 0-31 by mouth ity of 19:49: daily. [place] [address] Medical Branch diazepam 2017-09 Yes 10mg Take [...] by mouth ity of C/BIOTIN 19:49: daily. [place] ([facility] 19 Medical RX ORAL) Branch amLODIPine [...] 2 ity of mg tablet 19:49: (two) [place] 19 times Medical daily with Branch meals. aspirin 81 2017-09 Yes 81mg Take 81 mg U nivers mg tablet 0-31 by mouth ity of 19:49: daily. [place] 19 Medical Branch diazepam 2017-09 Yes 10mg [...] by mouth ity of C/BIOTIN 19:49: daily. [place] ([facility] 19 Medical RX ORAL) Branch amLODIPine [...] by mouth ity of C/BIOTIN 19:49: daily. [place] ([facility] 19 Medical RX ORAL) Branch amLODIPine [...] 2 ity of mg tablet 19:49: (two) [place] 19 times Medical daily with Branch meals. aspirin 81 2017-09 Yes 81mg Take 81 mg U nivers mg tablet 0-31 by mouth ity of 19:49: daily. [place] [address] Medical Branch diazepam 2017-09 Yes 10mg Take [...] by mouth ity of C/BIOTIN 19:49: daily. [place] (DA[facility] 19 Medical RX ORAL) Branch amLODIPine [...] 2 ity of mg tablet 19:49: (two) [place] 19 times Medical daily with Branch meals. aspirin 81 2017-09 Yes 81mg Take 81 mg U nivers mg tablet 0-31 by mouth ity of 19:49: daily. [place] 19 Medical Branch diazepam 2017-09 Yes 10mg [...] by mouth ity of C/BIOTIN 19:49: daily. [place] ([facility] 19 Medical RX ORAL) Branch amLODIPine [...] 2 ity of mg tablet 19:49: (two) [place] [address] times Medical daily with Branch meals. aspirin 81 2017-09 Yes 81mg Take 81 mg U nivers mg tablet 0-31 by mouth ity of 19:49: daily. [place] 19 Medical Branch diazepam 2017-09 Yes 10mg [...] by mouth ity of C/BIOTIN 19:49: daily. [place] (DAQU[facility] 19 Medical RX ORAL) Branch amLODIPine [...] by ity of complex and 15:09: mouth. [place] Medical ([facility] Branch ORAL) folic 2018-1 Yes 1{tbl} Take 1 Univers acid/vit B 0-31 tablet by [place]y of complex and 15:09: [place]. [place] ([facility] Branch ORAL) isosorbide 2017-09 Yes 60mg Take 60 mg U nivers mononitrate 0-31 by mouth ity of (IMDUR) 60 14:49: daily. [place] mg 24 hr 19 Medical tablet Branch carvedilol 2017-09 Yes 25mg Take 25 mg U nivers (COREG) 25 0-31 by mouth 2 ity of mg tablet 14:49: (two) [place] 19 times Medical daily with Branch meals. aspirin 81 2017-09 Yes 81mg Take 81 mg U nivers mg tablet 0-31 by mouth ity of 14:49: daily. [place] [address] Medical Branch diazepam 2017-09 Yes 10mg Take 10 mg Uni vers (VALIUM) 10 0-31 by mouth ity of mg tablet 14:49: every [place] 19 evening. Medical Branch docusate 2017-09 Yes 100mg Take 100 Univ ers (COLACE) 0-31 mg by ity of 100 mg 14:49: mouth [place] capsule 19 daily. Medical Branch VIT B CMPLX 2017-09 Yes 1{tbl} Take 1 Tab Univers 3/FA/VIT 0-31 by mouth ity of C/BIOTIN 14:49: daily. [place] (DAQU[facility]DE[facility] 19 Medical RX ORAL) Branch amLODIPine [...] mouth ity of (IMDUR) 60 14:49: daily. [place] mg 24 hr 19 Medical tablet Branch carvedilol 2017-09 Yes 25mg Take 25 mg U nivers (COREG) 25 0-31 by mouth 2 ity of mg tablet 14:49: (two) [place] 19 times Medical daily with Branch meals. aspirin 81 2017-09 Yes 81mg Take 81 mg U nivers mg tablet 0-31 by mouth ity of 14:49: daily. [place] 19 Medical Branch diazepam 2017-09 Yes 10mg Take 10 mg Uni vers (VALIUM) 10 0-31 by mouth ity of mg tablet 14:49: every [place] 19 evening. Medical Branch docusate 2017-09 Yes 100mg Take 100 Univ ers (COLACE) 0-31 mg by ity of 100 mg 14:49: mouth [place] capsule 19 daily. Medical Branch VIT B CMPLX 2017-09 Yes 1{tbl} Take 1 Tab Univers 3/FA/VIT 0-31 by mouth ity of C/BIOTIN 14:49: daily. [place] (DAQU[facility]-THADDEUS 19 Medical RX ORAL) Branch amLODIPine 2017-09 Yes 2.5mg Take 2.5 Un mayo 2.5 mg 0-31 mg by ity of tablet 14:49: mouth [place] 19 daily. Medical Branch ALBUTEROL 2017-09 Yes Inhale as Uni vers SULFATE 0-31 needed. ity of (PROAIR HFA 14:49: [place] INHALE) 19 Medical Branch glipiZIDE Yes TK 1 T PO Uni vers XL 10 mg 24 9-27 QD ity of hr tablet 00:00: [place] Medical Branch glipiZIDE Yes TK 1 T PO Uni vers XL 10 mg 24 9-27 QD ity of hr tablet 00:00: [place] Medical Branch glipiZIDE Yes TK 1 T PO Uni vers XL 10 mg 24 9-27 QD ity of hr tablet 00:00: Medical Branch glipiZIDE Yes TK 1 T PO Uni vers XL 10 mg 24 9-27 QD ity of hr tablet 00:00: Medical Branch glipiZIDE Yes TK 1 T PO Uni vers XL 10 mg 24 9-27 QD ity of hr tablet 00:00: [place] Medical Branch glipiZIDE Yes TK 1 T PO Uni vers XL 10 mg 24 9-27 QD ity of hr tablet 00:00: Medical Branch glipiZIDE Yes TK 1 T PO Uni vers XL 10 mg 24 9-27 QD ity of hr tablet 00:00: [place] Medical Branch glipiZIDE Yes TK 1 T PO Uni vers XL 10 mg 24 9-27 QD ity of hr tablet 00:00: [place] Medical Branch furosemide 2018-0 Yes TK 1 T PO Un mayo 40 mg 8-29 QD ity of tablet 00:00: [place] [facility] furosemide Yes TK 1 T PO Un mayo 40 mg 8-29 QD ity of tablet 00:00: [place] [facility] furosemide Yes TK 1 T PO Un mayo 40 mg 8-29 QD ity of tablet 00:00: [place] [facility] furosemide Yes TK 1 T PO Un mayo 40 mg 8-29 QD ity of tablet 00:00: [place] [facility] furosemide Yes TK 1 T PO Un mayo 40 mg 8-29 QD ity of tablet 00:00: [place] [facility] furosemide Yes TK 1 T PO Un mayo 40 mg 8-29 QD ity of tablet 00:00: [place] [facility] furosemide Yes TK 1 T PO Un mayo 40 mg 8-29 QD ity of tablet 00:00: [place] [facility] furosemide Yes TK 1 T PO Un mayo 40 mg 8-29 QD ity of tablet 00:00: [place] [facility] fluticasone 2014-0 Yes 2{spray Use 2 Un [...] al on nasal daily. Branch spray fluticasone 2014-0 Yes 2{spray Use 2 Un [...] ity o f mg tablet 00:00: at [place] 00 bedtime. Medical Branch simvastatin Yes 10mg [...] 00:00: at [place] 00 bedtime. Medical Branch carisoprodo Yes 350mg [...] Source Systolic blood 2021-06-20 19:14:00 168 mm[Hg[facility]astolic [facility] 2021-06-20 19:14:00 78 [facility]Hg[facility] 2021-06-20 19:14:00 84 /min [facility] Body temperature 2021-06-20 19:14:00 36.78 Huong [facility] Respiratory rate 2021-06-20 19:14:00 18 /min [facility] Oxygen saturation in 2021-06-20 19:14:00 99 /min [facility] Arterial blood by [facility] Pulse oximetry Branch Body weight 2021-06-20 16:14:00 97.07 kg [facility] BMI 2021-06-20 16:14:00 36.73 kg/m2 [facility] [place] [facility] Procedures Procedure Date / Time Performing Clinician Source Performed [id number] 2021-11-11 00:00:00 VUPH [facility] [id number] 2021-11-08 00:00:00 [facility] [id number] 2021-11-06 00:00:00 [facility] [id number] 2021-11-05 00:00:00 VUPH [facility] [id number] 2021-11-05 00:00:00 ISSHU [facility] [id number] 2021-11-04 00:00:00 [facility] [id number] 2021-11-03 00:00:00 VUPH [facility] POCT GLUCOSE 2021-06-20 19:04:00 Ruperto Castillo [facility] (AUTOMATED) [facility] Branch TROPONIN I 2021-06-20 17:03:[address] [facility] COMP. METABOLIC PANEL 2021-06-20 17:03:00 Ruperto Castillo [facility] ([id number]) [facility] PROTHROMBIN TIME / INR 2021-06-20 17:03:00 Ruperto Castilol [facility] ACTIVATED PARTIAL 2021-06-20 17:03:00 Ruperto Castillo [facility] THRMPLAS NEENA [facility] CBC WITH DIFF 2021-06-20 17:02:[address] [facility] COVID-19 (ID NOW RAPID 2021-06-20 17:02:00 Ruperto Castillo [facility] TESTING) [facility] LACTIC ACID WHOLE BLOOD 2021-06-20 17:01:00 Ruperto Castillo [facility] NOTICE OF PRIVACY 2021-06-20 15:46:14 Doctor Unassigned, No Univ [facility] PRACTICES Name Medical Branch CONSENT/REFUSAL FOR 2021-06-20 15:45:38 Doctor Unassigned, No [facility]REATMENT Name Medical Branch CT THORAX WO CONTRAST 2020-07-23 17:26:12 [facility] WO 2020-07-02 15:28:37 Requisition, Paper [facility] MR CERVICAL SPINE WO 2020-07-02 14:59:10 Requisition, Paper Univ ersity [facility] XR KNEE 3 VW RIGHT 2020-07-02 13:53:51 [facility]quisition, [facility] 2020-07-02 13:22:22 Doctor Unassigned, No [facility] Encounters Start End Encounter Admission Attending Care Care Encounter Source Date/Time Date/Time Type Type Clinicians Facility Department ID 2021-07-22 Emergency [facility] [id number] Univers 03:02:46 ity of [facility] 2021-11-04 2021-11-11 Inpatient EM Ivan Freitas [facility]. [id number] [facility] 13:10:00 21:23:00 22 [facility] 2021-06-20 2021-06-20 Emergency Castillo, [facility] [id number] Univers 11:16:00 14:18:00 Ruperto Hawley [id number] i ty of [place] [id number] [facility] [id number] [facility] 084 Branch 2021-06-20 2021-06-20 Orders Doctor MAYURI [id number] Univers 00:00:00 00:00:00 Only Unassigned, IMER [id number] ity of [place] [facility] [id number] [place] [id number] [facility] 009 Branch 2020-08-06 2020-08-06 Laboratory Only, Adc Test [facility] [id number]. [id number] Univers 10:18:02 10:33:02 Only Octavio Adams [id number] ity of [place] [id number] [facility] [id number] [facility] 353 Branch 2020-08-06 2020-08-06 Outpatient R [facility] [id number] Univers 10:30:00 10:30:00 ity of [facility] 2020-07-23 2020-07-23 Hospital Radiology [facility] [id number] Univers 10:58:11 23:59:00 Encounter [place] [id number] ity [place] [id number] [place] [id number] [facility] 801 Branch 2020-07-23 2020-07-23 Outpatient R RADIOLOGY [facility] [id number] Univers 00:00:00 00:00:00 ity of [facility] 2020-07-18 2020-07-18 Outpatient R RADIOLOGY [facility] [id number] Univers 00:00:00 00:00:00 ity of [facility] 2020-07-16 2020-07-16 Outpatient R [facility] [id number] Univers 09:30:00 09:30:00 ity of [facility] 2020-07-02 2020-07-02 [facility] Radiology [facility] [id number] Univers 08:28:21 23:59:00 Encounter [place] [id number] ity of [place] [id number] [place] [id number] [facility] [address] [place] [address] 2020-07-02 2020-07-02 [facility] Radiology [facility] [id number] Univers 08:28:00 08:28:00 Encounter [place] [id number] ity of [place] [id number] [place] [id number] [facility] [address] [place] [address] 2020-07-02 2020-07-02 [facility] Radiology [facility] [id number] Univers 08:26:35 08:27:00 Encounter [place] [id number] ity of [place] [id number] [place] [id number] [address] 2020-07-02 2020-07-02 Outpatient R RADIOLOGY [facility] [id number] Univers 00:00:00 00:00:00 ity of [facility] 2020-07-02 2020-07-02 Orders Doctor MAYURI [id number] Univers 00:00:00 00:00:00 Only Unassigned, IMER [id number] ity of [place] [facility] [id number] J[place] as [id number] [address] Results Test Description Test Time Test Comments Results Result Comments Source GLUCOSE BEDSIDE 2021-11-11 17:19:00 Test Item Value Reference Range Interpretation Comme nts GLUCOSE BEDSIDE (test code = 241 MG/DL 70-110 H Performed by certified 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 [facility]) [facility] GLUCOSE [id number] 10:54:00 Test Item Value Reference Range Interpretation Comments GLUCOSE BEDSIDE (test 157 MG/DL 70-110 H Perfor med by certified code = GLUBED) 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 [facility] GLUCOSE [id number] 07:58:00 Test Item Value Reference Range Interpretation Comments GLUCOSE BEDSIDE (test 172 MG/DL 70-110 H Perfor med by certified code = GLUBED) 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 [facility] GLUCOSE [id number] 19:45:00 Test Item Value Reference Range Interpretation Comments GLUCOSE BEDSIDE (test 314 MG/DL 70-110 H Perfor med by certified code = GLUBED) 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 [facility] GLUCOSE [id number] 17:28:00 Test Item Value Reference Range Interpretation Comments GLUCOSE BEDSIDE (test 242 MG/DL 70-110 H Perfor med by certified code = GLUBED) 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 [facility] GLUCOSE [id number] 11:52:00 Test Item Value Reference Range Interpretation Comments GLUCOSE BEDSIDE (test 213 MG/DL 70-110 H Perfor med by certified code = GLUBED) 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 [facility] GLUCOSE [id number] 08:09:00 Test Item Value Reference Range Interpretation Comments GLUCOSE BEDSIDE (test 178 MG/DL 70-110 H Perfor med by certified code = GLUBED) 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 [facility] GLUCOSE [id number] 19:29:00 Test Item Value Reference Range Interpretation Comments GLUCOSE BEDSIDE (test 281 MG/DL 70-110 H Perfor med by certified code = GLUBED) 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 [facility] GLUCOSE [id number] 17:26:00 Test Item Value Reference Range Interpretation Comments GLUCOSE BEDSIDE (test 272 MG/DL 70-110 H Perfor med by certified code = GLUBED) 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 [facility] GLUCOSE [id number] 11:53:00 Test Item Value Reference Range Interpretation Comments GLUCOSE BEDSIDE (test 227 MG/DL 70-110 H Perfor med by certified code = GLUBED) 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 [facility] GLUCOSE [id number] 08:01:00 Test Item Value Reference Range Interpretation Comments GLUCOSE BEDSIDE (test 238 MG/DL 70-110 H Perfor med by certified code = GLUBED) 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 [facility] Ctr BASIC METABOLIC [id number] 07:43:00 Test Item Value Reference Range Interpretation [...] CA) COMMENTS: Daily while receiving remdesivirHEPATIC FUNCTION [id number] 07:43:00 Test Item Value Reference Range Interpretation [...] BILIND) COMMENTS: Daily while receiving remdesivirCBC W/AUTO [id number] 07:38:00 Test Item Value Reference Range Interpretation [...] 0.00 x10 3/uL 0.0-0.1 N NRBC#) GLUCOSE [id number] 20:01:00 Test Item Value Reference Range Interpretation Comments GLUCOSE BEDSIDE (test 322 MG/DL 70-110 H Perfor med by certified code = GLUBED) 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 [facility] GLUCOSE [id number] 16:57:00 Test Item Value Reference Range Interpretation Comments GLUCOSE BEDSIDE (test 196 MG/DL 70-110 H Perfor med by certified code = GLUBED) 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 [facility] GLUCOSE [id number] 12:11:00 Test Item Value Reference Range Interpretation Comments GLUCOSE BEDSIDE (test 281 MG/DL 70-110 H Perfor med by certified code = GLUBED) 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 [facility] BASIC METABOLIC [id number] 08:22:00 Test Item Value Reference Range Interpretation [...] CA) COMMENTS: Daily while receiving remdesivirHEPATIC FUNCTION [id number] 08:22:00 Test Item Value Reference Range Interpretation [...] = ALKP) COMMENTS: Daily while receiving remdesivirGLUCOSE [id number] 08:10:00 Test Item Value Reference Range Interpretation Comments GLUCOSE BEDSIDE (test 233 MG/DL 70-110 H Perfor med by certified code = GLUBED) 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 [facility] Ctr CBC W/AUTO [id number] 08:02:00 Test Item Value Reference Range Interpretation [...] 0.00 x10 3/uL 0.0-0.1 N NRBC#) GLUCOSE [id number] 20:29:00 Test Item Value Reference Range Interpretation Comments GLUCOSE BEDSIDE (test 312 MG/DL 70-110 H Perfor med by certified code = GLUBED) 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 [facility] GLUCOSE [id number] 18:02:00 Test Item Value Reference Range Interpretation Comments GLUCOSE BEDSIDE (test 237 MG/DL 70-110 H Perfor med by certified code = GLUBED) 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 [facility] GLUCOSE [id number] 10:58:00 Test Item Value Reference Range Interpretation Comments GLUCOSE BEDSIDE (test 243 MG/DL 70-110 H Perfor med by certified code = GLUBED) 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 [facility] GLUCOSE [id number] 08:34:00 Test Item Value Reference Range Interpretation Comments GLUCOSE BEDSIDE (test 198 MG/DL 70-110 H Perfor med by certified code = GLUBED) 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 [facility] BASIC METABOLIC [id number] 07:57:00 Test Item Value Reference Range Interpretation [...] CA) COMMENTS: Daily while receiving remdesivirHEPATIC FUNCTION [id number] 07:57:00 Test Item Value Reference Range Interpretation [...] ALKP) COMMENTS: Daily while receiving remdesivirCBC W/AUTO [id number] 06:57:00 Test Item Value Reference Range Interpretation [...] REQUIRED (test code NO = MDIFF) GLUCOSE [id number] 19:32:00 Test Item Value Reference Range Interpretation Comments GLUCOSE BEDSIDE (test 303 MG/DL 70-110 H Perfor med by certified code = GLUBED) 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 [facility] GLUCOSE [id number] 15:56:00 Test Item Value Reference Range Interpretation Comments GLUCOSE BEDSIDE (test 334 MG/DL 70-110 H Perfor med by certified code = GLUBED) 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 [facility] GLUCOSE [id number] 12:14:00 Test Item Value Reference Range Interpretation Comments GLUCOSE BEDSIDE (test 275 MG/DL 70-110 H Perfor med by certified code = GLUBED) 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 [facility] GLUCOSE [id number] 08:01:00 Test Item Value Reference Range Interpretation Comments GLUCOSE BEDSIDE (test 167 MG/DL 70-110 H Perfor med by certified code = GLUBED) 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 [facility] BASIC METABOLIC [id number] 08:00:00 Test Item Value Reference Range Interpretation [...] CA) COMMENTS: Daily while receiving remdesivirHEPATIC FUNCTION [id number] 08:00:00 Test Item Value Reference Range Interpretation [...] ALKP) COMMENTS: Daily while receiving remdesivirCBC W/AUTO [id number] 07:58:00 Test Item Value Reference Range Interpretation [...] (test code NO = MDIFF) ACUTE HEPATITIS [id number] 04:09:00 Test Item Value Reference Range Interpretation Comments AB HEPATITIS A IGM (test NON REACTIVE INDEX NON REACT. code = HAVMAB) AG HEPATITIS B SURFACE NON REACTIVE INDEX NonReactive (test code = HBSAG) AB HEPATITIS B CORE IGM NON REACTIVE INDEX NON REACT. (test code = HBCMAB) AB HEPATITIS C (test code NON REACTIVE INDEX NON REACT. = HCVAB) AB HEPATITIS B [id number] 04:09:00 Test Item Value Reference Range Interpretation Comments AB HEPATITIS B 449.2 mIU/mL See_Comment Status of Im munity SURFACE (test code = Anti-HB s Level HBSAB) --- I nconsi stent with Immu nity 0.0 - 9.9Consis tent with Immunity >9.9Performed A t: HD [facility] [address] [id number] Kyle L MD Ph:[phone] [Automated mess age] The system [employer] generated this result transmitted ref erence range: Immunity >9.9. The reference r benson was not used to interpret this result as normal/abnor mal. GLUCOSE [id number] 21:13:00 Test Item Value Reference Range Interpretation Comments GLUCOSE BEDSIDE (test 149 MG/DL 70-110 H Perfor med by certified code = GLUBED) 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 [facility] Ctr HEPATIC FUNCTION [id number] 17:24:00 Test Item Value Reference Range Interpretation [...] ALKP) COMMENTS: Prior to remdesivir dosingGLOMERULAR FILTRATION [id number] 17:24:00 Test Item Value Reference Range Interpretation Comments GLOMERULAR FILTRATION 4.2 80-90 L Units of measure = RATE (test code = GFR) ml/mi n/1.73 m2 COMMENTS: Prior to remdesivir [id number] 17:24:00 Test Item Value Reference Range Interpretation Comments CREATININE (test code = CREAT) 11.0 mg/dL 0.6-1.3 H COMMENTS: Prior to remdesivir dosingPROTHROMBIN [id number] 16:57:00 Test Item Value Reference Range Interpretation [...] infar ct). COMMENTS: Prior to remdesivir dosingGLUCOSE [id number] 16:51:00 Test Item Value Reference Range Interpretation Comments GLUCOSE BEDSIDE (test 147 MG/DL 70-110 H Perfor med by certified code = GLUBED) 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 [facility] C[facility] GLUCOSE [id number] 11:38:00 Test Item Value Reference Range Interpretation Comments GLUCOSE BEDSIDE (test 132 MG/DL 70-110 H Perfor med by certified code = GLUBED) 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 [facility] GLUCOSE [id number] 09:26:00 Test Item Value Reference Range Interpretation Comments GLUCOSE BEDSIDE (test 90 MG/DL 70-110 N Perfor med by certified code = GLUBED) 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 [facility] [id number]%2021-11-05 08:12:00 Test Item Value Reference Range Interpretation Comments HGBA1C% (test code = HGBA1C%) 5.3 %A1C 4.8-6.0 N COMPREHENSIVE METABOLIC [id number] 07:59:00 Test Item Value Reference Range Interpretation [...] LL Critica l result CA) called to [facility] at 07 57 11/05/21Nurse janie ruiz back result and tech confirmed it's correct? Y BILIRUBIN TOTAL (test 0.50 mg/dL 0.0-1.0 N code = BILT) SGOT/AST (test code = 39 IUnit/L 15-37 H AST) SGPT/ALT (test code = 17 IUnit/L 30-65 L ALT) ALKALINE PHOSPHATASE 74 IUnit/L 20-125 N TOTAL (test code = ALKP) [id number] 07:59:00 Test Item Value Reference Range Interpretation Comments PHOSPHOROUS (test code = PHOS) 6.3 MG/DL 2.5-4.9 H CBC W/AUTO [id number] 07:50:00 Test Item Value Reference Range Interpretation [...] REQUIRED (test code NO = MDIFF) GLUCOSE [id number] 00:50:00 Test Item Value Reference Range Interpretation Comments GLUCOSE BEDSIDE (test 82 MG/DL 70-110 N [facility] med by certified code = GLUBED) 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 [facility] C[facility] CBC W/AUTO [id number] 00:08:00 Test Item Value Reference Range Interpretation [...] 0.1-0.8 N - CT ABD PELVIS W/O [id number] 00:00:00 [facility] 1955 Sex: F Name: VALENTINE MCNALLY [facility] : 1955 Age/S: 66 / F [address] [facility] Unit #: [id number] Loc: [facility] ISAAC [address] Phys: Heber Rainey DO Acct: [id number] Dis Date: Status: ADM IN PHONE #: [phone] Exam Date: 11/05/2021 1311 FAX #: [phone] Reason: nausea/vomitting EXAMS: CPT CODE: [id number] CT ABD PELVIS W/O CONT 13242 PROCEDURE INFORMATION: Exam: CT Abdomen And Pelvis [...] targeted exams where dose is matched to clinicalindication); or iterative reconstruction. COMPARISON: Chest single view 11/04/2021 FINDINGS: Limitations: Assessment of the viscera and vasculature may be limited by the lack of intravenous contrast. Lungs: There are extensive indistinct ground-glass and moderate attenuation airspace opacities in the visualized lung bases. Pleural spaces: There are trace bilateral pleural effusions. Heart: There are calcifications in the visualized coronary arteries. Liver: Unremarkable. Gallbladder and bile ducts: There has been a cholecystectomy. Pancreas: Unremarkable. Spleen: Unremarkable. Adrenal glands: Thickening of the left adrenal up to 16 mm, indeterminate attenuation of 30-40 Hounsfield units. The rightadrenal is unremarkable. Kidneys and ureters: The kidneys [...] in the abdominal aorta and branch vessels. Noaneurysm. Lymph nodes: Unremarkable. PAGE 1 Signed Report (CONTINUED) Name: VALENTINE MCNALLY [facility] : 1955 Age/S: 66 / F [address] [place] [address] Unit #: [id number] Loc: [place] [id number] Phys: Heber Rainey DO Acct: [id number] Dis Date: Status: ADM IN PHONE #: [phone] Exam Date: 11/05/2021 1311 FAX #: [phone] Reason: nausea/vomitting EXAMS: CPT CODE: [id number] CT ABD PELVIS W/O CONT 01261 (Continued) Urinary bladder: Unremarkable as visualized. Reproductive: [...] reported imaging features of COVID-19 pneumonia are present. Other processes such as influenza pneumonia and [...] by the Society of Thoracic Radiology, the [place] [employer], and RSNA. Published December 13, 2019. 2. Liban PIERCE, et al. Management of Incidental Adrenal Masses: A White Paper of the ACR Incidental Findings Committee. J Am Loren Radiol. 2017;14(8):3421-7673. at 1341 Reported and signed by: Kev Richardson M.D. CC: Ivan Freitas MD; Heber Rainey DO Technologist:RT Fely(R)(CT) CTDI: DLP: Trnscb Date/Time: 11/05/2021 (1341) Rivas Orig Print D/T: S: 11/05/2021 (1341) PAGE 2 Signed Report- NAA ISBELL [id number] 00:00:00 [facility] SUZIE CORNEJOName: VALENTINE MCNALLY : 1955 Sex: F Name: VALENTINE MCNALLY [facility] Suzie Cornejo : 1955 Age/S: 66 / F [address] [place] [address] Blvd Unit #: [id number] Loc: [place] [address] Phys: Daniel Rahman MD Acct: [id number] Dis Date: Status: ADM IN PHONE #: [phone] Exam Date: 11/05/2021233 FAX #: [phone] Reason: TO RULE OUT DVT EXAMS: CPT CODE: [id number] DUP VEIN JOSEY 83322 PROCEDURE INFORMATION: Exam: US Duplex Lower Extremity [...] focused on the bilateral lower extremity veins. COMPARISON:No relevant prior studies available. FINDINGS: Right deep [...] is patent without thrombus. Soft tissues: No fluid collections. IMPRESSION: No evidence for acute DVT of either lower extremity. at 0242 Reported and signed by: Rad Noel M.D. CC: Daniel Rahman MD; Ivan Freitas MD Technologist: Eugenia Downey RDMS(AB)(OB) Trnscb Date/Time: 11/05/2021 (024 2) CharAM34 Orig Print D/T: S: 11/05/2021 (0243) Probe: PAGE 1 Signed Report- CT HEAD/BRAIN W/O [id number] 00:00:00 [facility] : 1955 Sex: F Name: VALENTINE MCNALLY [facility] : 1955 Age/S: 66 / F [address] [place] [address] Unit #: [id number] Loc: [place] [address] Phys: Daniel Rahman MD Acct: [id number] Dis Date: Status: ADM IN PHONE #: [phone] Exam Date: 11/05/2021350 FAX #: [phone] Reason: h/o confusion. EXAMS: CPT CODE: [id number] CT HEAD/BRAIN W/O CONT 30022 PROCEDURE INFORMATION: Exam: CT Head Without Contrast Exam date and time: 11/05/2021 3:45 AM Age: 66 years old Clinical indication: Altered mental status/memory loss; Confusion or disorientation; Additional info: H/o confusion. TECHNIQUE: Imaging protocol: Computed tomography of the head without contrast. Radiation optimization: All CT scans at [facility] use at least one of these dose [...] sinusitis. PAGE 1 Signed Report (CONTINUED) Name: VALENTINE MCNALLY [facility] : 1955 Age/S: 66 / F [address] [place] [address] Unit #: [id number] Loc: [place] [address] Phys: Daniel Rahman MD Acct: [id number] Dis Date: Status: ADM IN PHONE #: [phone] Exam Date: 11/05/2021350 FAX #: [phone] Reason: h/o confusion.EXAMS: CPT CODE: [id number] CT HEAD/BRAIN W/O CONT 41944 (Continued) at 0407 Reported and signed by: Donald Jackson M.D. CC: Jarred Rahman MD; Ivan Freitas MD Technologist:RT Syed(R) CTDI: DLP: Trnscb Date/Time: 11/05/2021 (406) CharTP6 Orig Print D/T: S: 11/05/2021 (406) PAGE 2 Signed ReportBASIC METABOLIC [id number] 21:46:00 Test Item Value Reference Range Interpretation [...] l result CA) called to Leandro STOCK [id number] at 214 3 11/04/21Nurse r ead back result and tech confirmed it's correct? Y LACTIC DEHYDROGENASE(LDH)2021-11-04 21:46:00 Test Item Value Reference Range Interpretation Comments LACTIC DEHYDROGENASE(LDH) (test 384 IUnits/L 84-246 H code = LDH) [id number] 21:46:00 Test Item Value Reference Range Interpretation Comments FERRITIN (test code = JARETH) 2847.4 ng/mL 11.0-306.8 H [id number] 21:22:00 Test Item Value Reference Range Interpretation Comments D-DIMER (test 2100 ng/mlFEU See_Comment HH Critical resu lt called to code = TAWNYA FORBES by Maria MOMIN at [facility]) 212011/04/21Nu rse read back result and tech confirmed it's correct?Y THROMBOSIS AND/ OR PULMONARY EMBOLISM AND TH E CLINICAL CUT- OFF VALUE FOR EXCLUSION (500 ng/mL FEU) OF THESE CONDIT IONSIS VALIDATED BY TH E WASHER MEAT OF THE METHOD. A NEGATIVE D-DI LEV [...] this result as normal/abnormal . C REACTIVE [id number] 21:17:00 Test Item Value Reference Range Interpretation Comments C REACTIVE PROTEIN (test code = 125.0 mg/L <10.0 H CRP) LACTIC [id number] 21:12:00 Test Item Value Reference Range Interpretation Comments LACTIC ACID (test code = LACT) 0.5 mmol/L 0.4-1.9 N CBC W/AUTO [id number] 21:04:00 Test Item Value Reference Range Interpretation [...] 0.00 x10 3/uL 0.0-0.1 N NRBC#) LIPOPROTEIN [id number] 15:05:00 Test Item Value Reference Range Interpretation Comments LIPOPROTEIN LDL 54.6 mg/dL 0-100 N <100 OPTIMAL 100-129 NEAR (test code = LDL) OPTIMAL/AB OVE [id number] [id number] 89 HIGH>LC=377 KATIA Y HIGH*Guidelines provided by the National Cholesterol EducationProgra m Adult Treatment Panel III TROP-I HIGH [id number] 14:40:00 Test Item Value Reference Range Interpretation [...] results and URLs mayvary by method. 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 Coronavirus 2019 nCoV [id number] 10:53:00 Test Item Value Reference Range Interpretation Comments Coronavirus 2018 Positive Negative A Performed b y certified nCoV Bedside (mechanical meter tester at [facility] code = CtrThe [place] I D NOW [id number]) utilizes isoth ermal [place] EnzymeAmplifica tion Reaction [...] assay. Negative result s do not preclude XITL-UmR-2eatzl tion and should not be u sed as the sole basis forp atient management deci sions. Negative result s should beconsidered in the context of a patient's recent exposures,histo ry, presence of clinical sig ns and symptoms consis tentwith COVID-19. BASIC METABOLIC [id number] 10:49:00 Test Item Value Reference Range Interpretation [...] POCGLU) 166 MG/DL - XR CHEST 1 [id number] 00:00:00 [facility] : 1955 Sex: F FAX: Anthony Shaikh MD [place]: [address]: PRE Name: VALENTINE MCNALLY FSED : 1955 Age/S: 66/F [address] [facility] Unit #: [id number] Loc: [place] [address] Phys: Anthony Leon MD Acct: [id number] Dis Date: Status: PRE ER PHONE #: Exam Date: 11/04/2021 1029 FAX #: Reason: Weakness EXAMS: CPT CODE: [id number] XR CHEST 1 V 65068 PROCEDURE INFORMATION: Exam: XR Chest Exam date [...] Differential considerations include edema and multifocal pneumonia. ElectronicallySigned by Boby Moreno on 11/04/2021 at 1052 Reported and signed by: Alisa Moreno M.D. CC: Anthony Leon MD Technologist: Jyotsna Knight, RT(R)(CT) Trnscrd Date/Time/By: 11/04/2021 (9952) : By: deshawn [email or web address] Orig Print D/T: S: 11/04/2021 (4999) PAGE 1 Signed ReportPOCT GLUCOSE (AUTOMATED)2021-06-20 19:09:24 Test Item Value Reference Range Interpretation Comments POCT GLU (test code = 6721175519) 93 mg/dL 70-110 Lab Interpretation (test code = Normal 09359-3) [facility]. METABOLIC PANEL (97478)2021-06-20 18:00:24 Test Item Value Reference Range Interpretation Comments NA (test code = 139 mmol/L 135-145 6014764236) K (test code = 3.1 mmol/L 3.5-5.0 L 1841649120) CL (test code = 102 mmol/L 98-108 2288973431) CO2 TOTAL (test code = 26 mmol/L 23-31 2027782234) AGAP (test code = 2-16 2180888271) BUN (test code = 29 mg/dL 7-23 H 3969126543) GLUCOSE (test code = 41 mg/dL 70-110 LL 5550692710) CREATININE (test code = 7.61 mg/dL 0.50-1.04 H 0178471447) TOTAL BILI (test code = 1.0 mg/dL 0.1-1.4 2183579925) CALCIUM (test code = 9.5 mg/dL 8.6-10.6 2752996212) T PROTEIN (test code = 7.3 g/dL 6.3-8.2 5590936530) ALBUMIN (test code = 4.1 g/dL 3.5-5.0 1226315743) ALK PHOS (test code = 85 U/L 34-122 2938407181) ALTv (test code = 16 U/L 5-35 1742-6) AST(SGOT) (test code = 35 U/L 13-40 9883046740) eGFR (test code = mL/min/1.73m2 8476994409) CEZAR (test code = CEZAR) Association of [...] tests). Lab Interpretation Abnormal (test code = 30431-7) [facility] [id number] 17:53:17 Test Item Value Reference Interpretation Comments Range TROPONIN I (test 0.031 ng/mL See_Comment [Automated code = 0224346223) message] The system which generated this result [...] biotin. Lab Interpretation Normal (test code = 54117-8) [facility] WITH [id number] 17:49:55 Test Item Value Reference Range Interpretation Comments WBC (test code = See_Comment [Automated 2290-2) message] The sy stem which generated this result transmitted reference range : 4.30 - 11.10 10*3/?L. The reference range was not used to interpret this result as normal/abnormal . RBC (test code = See_Comment L [Automated 479-8) message] The sy stem which generated this [...] (test code = 52.1 fL 39.0-49.9 H 27593-8) RDW-CV (test code = 14.4 % 12.0-15.5 788-0) PLT (test code = See_Comment [Automated 777-3) message] The sy stem which generated this result transmitted reference range : 166 - 358 10*3/ ?L. The reference r benson was not used to interpret this result as normal/abnormal . MPV (test code = 10.6 fL 9.5-12.9 67835-6) NRBC/100 WBC (test See_Comment [Automat ed code = 0095704253) message] The system which generated this result transmitted reference range : 0.0 - 10.0 /100 WBCs. The refer ence range was not u sed to interpret th is result as normal/abnormal . NRBC x10^3 (test code <0.01 See_Comment [Auto mated = 9250475959) message] The s ystem which generated this result transmitted reference range : 10*3/?L. The reference range was not used to interpret this result as normal/abnormal . GRAN MAT (NEUT) % 75.9 % (test code = 770-8) IMM GRAN % (test code 0.70 % = 4065584167) LYMPH % (test code = 16.3 % 736-9) MONO % (test code = 5.6 % 5905-5) EOS % (test code = 1.0 % 713-8) BASO % (test code = 0.5 % 706-2) GRAN MAT x10^3(ANC) 6.63 10*3/uL 1.88-7.09 (test code = 5635137313) IMM GRAN x10^3 (test 0.06 10*3/uL 0.00-0.06 code = 5406143758) LYMPH x10^3 (test code 1.42 10*3/uL 1.32-3.29 = 731-0) MONO x10^3 (test code 0.49 10*3/uL 0.33-0.92 = 742-7) EOS x10^3 (test code = 0.09 10*3/uL 0.03-0.39 711-2) BASO x10^3 (test code 0.04 10*3/uL 0.01-0.07 = 704-7) Lab Interpretation Abnormal (test code = 44566-4) [facility] TexasACTIVATED PARTIAL THRMPLAS [id number] 17:44:12 Test Item Value Reference Range Interpretation Comments APTT Patient (test See_Comment [Automat ed code = 3173-2) message] The system which generated this result transmitted reference range : 23 - 38 Seconds . The reference range was not used to interpr et this result as normal/abnormal . CEZAR (test code = CEZAR) The [facility] patient population mean normal value for aPTT is 30 seconds. Lab Interpretation Normal (test code = 55266-2) [facility] TexasPROTHROMBIN TIME / [id number] 17:42:14 Test Item Value Reference Range Interpretation [...] tions. Lab Interpretation (test Normal code = 06335-9) [facility] TexasLactic Acid Whole [id number] 17:06:14 Test Item Value Reference Range Interpretation Comments LACTIC ACID (test code = 1.72 mmol/L 0.50-2.20 3843499060) Lab Interpretation (test code = Normal 09678-2) [facility] TexasCT THORAX WO [id number] 17:42:52 HISTORY: Hilar mass. TECHNIQUE: 64-Multidetector noncontrast [...] in the right lobe. Thyroidultrasound study recommended. [facility] Results Inft User - 07/23/2020 11:44 AM [...] mass in the right lobe. Thyroidultrasound study recommended.[facility] LUMBAR SPINE WO CONTRAST 2020-07-02 15:34:03HISTORY: Back pain running down the lateral right leg. History of multiplefalls. TECHNIQUE: SagittalT2 FRFSE, T1, STIR and axial T2 FRFSE T1 studies oflumbar spines are obtained. Additional coronal Y6UJVTA study is alsoobtained. FINDINGS: Mild lumbar levoscoliosis [...] are seen in L3, L4, L5 and S1/W0ugufayadk bodies, consistentwith benign lipomas. CONCLUSIONS:1. Exaggerated lumbar [...] Multilevel facet arthritis, more at L4-L5 and L5-S1.[facility] CERVICAL SPINE WO [id number] 15:04:27HISTORY: Neck pain radiating down into the [...] noted. For completeevaluation, thyroid ultrasound study recommended. [facility], [facility]iant Results Inft User - 07/02/2020 10:05AM [...] trachea noted. For completeevaluation, thyroid ultrasound study recommended.[facility] TexasXR KNEE 3 VW [id number] 13:56:35HISTORY: ?Pain. FINDINGS: AP, lateral, oblique views [...] Mild tricompartment degenerative arthritis of right knee. [facility], Radiant Results Inft User - 07/02/2020 8:57 [...] diabetes.CONCLUSIONS: Mild tricompartment degenerative arthritis of right knee.[facility] Notes Date/Time Note Provider Source 2021-12-27 00:33:00-00:00 [id number] [place] [id number] PATIENT NAME: VALENTINE MCNALLY ADMIT DATE: ACCOUNT NO: [id number] ROOM NO: G.C136 AGE: 66 REPORT TYPE: 360 - QUERY RESPONSE DOCUMENT SEX: F ADMITTING PHYSICIAN:Ivan Freitas MD ATTENDING PHYSICIAN:Ivan Freitas MD Provider Query QUERY TEXT: POA Indicator 360MD Query related questions should be directed to: Deshawn soares [facility] [place] Query Helpline [phone] Please indicate if the diagnosis of viral sepsis was present on admission? The patient's Clinical Indicators include: Viral sepsis from COVID Query Response 12/05/21 Options provided: -- Yes -- No -- W -- Other - I will add my own diagnosis -- Dismiss - Not applicable / Not valid -- Dismiss - Clinically unable to determine / Un known -- Assign to another provider QUERY RESPONSE: Yes- The condition was present at the time of in patient admission. Query created by: Ilene Benson on 12/05/2021 10: 18 AM Electronically Signed by Heber Rainey DO on 06/11 at 0033 PATIENT NAME: VALENTINE MCNALLY ACCOUNT #: [id number] 2021-12-05 06:12:00-00:00 [phone] [place] [address] PATIENT NAME: VALENTINE MCNALLY ADMIT DATE: ACCOUNT NO: [id number] ROOM NO: G.C136 AGE: 66 REPORT TYPE: 360 - QUERY RESPONSE DOCUMENT SEX: F ADMITTING PHYSICIAN:Ivan Freitas MD ATTENDING PHYSICIAN:Ivan Freitas MD Provider Query QUERY TEXT: Clarification Infectious Status POA 360MD Query related questions should be directed to:Pal brandt [facility] Coding Query Helpline Based on your clinical judgment, can you provide the known or suspected condition(s) that represent(s) the clinical indicators listed below and if the condition(s) are present on admission (POA)? The following definitions are provided based on industry literature and in collaboration with [facility] for your reference only: --Localized Infection - An infection that affect s only one organ or body part (e.g., UTI, Pneumonia) --Bacteremia - Nonspecific laboratory finding of bacteria in the blood --Sepsis - A presumed or confirmed systemic resp onse to infectious process with >2 clinical indicators such as: Temperature >38.3C or <36.0C, tachycardia, > 20 respiratory rate, WBC >12,000 or < 4,000 or > 1 0% bands --Severe Sepsis - Sepsis with additional clinica l indicators such as Organ failure with any of th e following: systolic BP < 90 or MAP < 65 or SBP decrease more 40 mm Hg from last recorded SBP considered normal for patient, Creatinine > 2.0, urine output < 0.5 ml /kg/hour for 2 hours, Bilirubin > 2 mg/dL, platelet coun t < 100,000, INR > 1.5, PTT > 60 sec, lactate > 2 m mol/L --Septic Shock - Severe Sepsis with Lactic acid > 4 mmol/L or persistent hypotension The patient's Clinical Indicators include: COVID 19 pneumonia-Discharge Summary 11/11/2021 (1) Free text DxA P notes: Metabolic encephalopathy * CT head/PT/OT eval. p robably multifactorial from all above. Hospitalist Progress Note 11/10/2021 (2) COUGH, CONGESTION, SOB, FEVER X 4-Rapid Initial Assessment 11/04/2021 (3) Fever greater than 100.4 F or 38.0 C: Patient states having a fever: Options provided: -- Sepsis, Please specify POA status (i.e., Y=Ye s, N=No, W=Unable to clinically determine) and causative organism if known. -- Severe Sepsis, Please specify POA status (i.e ., Y=Yes, N=No, W=Unable to clinically determine) and cau sative organism if known. -- Severe Sepsis with septic shock, Please speci fy POA status (i.e., Y=Yes, N=No, W=Unable to clinical ly determine) and causative organism if known. -- Localized infection, Please specify the infec tion and POA status (i.e., Y=Yes, N=No, W=Unable to clin ically determine). -- Other - I will add my own diagnosis -- Dismiss - Not applicable / Not valid -- Dismiss - Clinically unable to determine / Un known -- Assign to another provider QUERY RESPONSE: Viral sepsis from COVID Query created by: Laura Keyes on 11/14/2021 7:46 AM Electronically Signed by Heber Rainey DO on at 0612 PATIENT NAME: VALENTINE MCNALLY ACCOUNT #: [id number] 2021-11-11 16:57:00-00:00 [id number] [place] [address] PATIENT NAME: VALENTINE MCNALLY ADMIT DATE: ACCOUNT NO: [id number] ROOM NO: G.C136 AGE: 66 REPORT TYPE: eCARDIAC STRESS TEST SEX: F ADMITTING PHYSICIAN:Ivan Freitas MD ATTENDING PHYSICIAN:Ivan Freitas MD *[facility]* Heart and Vascular [address] [place], [place] [id number] Myocardial Perfusion Imaging Regadenoson (Lexiscan) Patient: Valentine Mcnally Study Date: 11/11/2021 Gigi ight: 0 in / 0 Amairani cm URN: Weight: 0 lb / 0 kg : 1955 Location: [facility] BMI/BSA: Age: 66 Gender: F Account#: *Interpreting Physician: Henry Weems MD Nurse: Glynn Kern NP Indications: Shortness of breath. Risk factors: Hypertension. Diabetes mellitus. D yslipidemia. Conclusions Impressions: No ST changes or chest pain. Study data: Location: Stress laboratory. Consent : The risks, benefits, and alternatives to the procedure were explained to the patient and informed consent was obtained. Study completion: The patient tolerated the procedure well. There were no complications. Procedure data: Initial setup. The patient was b rought to the laboratory. A baseline ECG was recorded. Intrave nous access was obtained. ECG and blood pressure measurements we re monitored. PATIENT NAME: VALENTINE MCNALLY ACCOUNT #: [id number] Regadenoson (Lexiscan) stress test. Regadenoson (Lexiscan) was administered by intravenous bolus, followed by a 5 ml saline flush. The total dose was 0.4mg. over 10.00 secPharmacologi c stress was used because the patient was physically unable to exe rcise. Cardiac stress table: + +--+ + + *Stage *HR*BP *Symptoms * + +--+ + + *PREINFSN SUPINE *59* * * + +--+ + + *INFUSION INFUSION *59* * * + +--+ + + *POSTINFSN 2MIN POST*66*140/71 (94)* * + +--+ + + *POSTINFSN 4MIN POST*66*133/76 (95)* * + +--+ + + *POSTINFSN 6MIN POST*66*133/76 (95)* * + +--+ + + *Baseline *--* *No symptoms.* + +--+ + + Stress results: Maximal heart rate during stress was 67 bpm (44% of maximal predicted heart rate). The maximal predi cted heart rate was 152 bpm.The target heart rate was 129 bpm.The target heart rate was not achieved. The rate-pressure product for the peak heart rate and blood pressure was 9240 mm Hg/min. Stress ECG: Savage scoring: exercise time of 0.17 min; ; . Prepared and electronically signed by: Henry Melara MD 11/11/2021 16:57 Electronically Signed by Henry Melara MD on at 1657 PATIENT NAME: VALENTINE MCNALLY ACCOUNT #: [id number] 2021-11-11 13:11:00-00:00 [id number] [place] [address] PATIENT NAME: VALENTINE MCNALLY ADMIT DATE: ACCOUNT NO: [id number] ROOM NO: G.C136 AGE: 66 REPORT TYPE: eNUCLEAR CARDIOLOGY REPORT SEX: F ADMITTING PHYSICIAN:Ivan Freitas MD ATTENDING PHYSICIAN:Ivan Freitas MD *[facility]* Heart and Vascular [address] [place] [address] Myocardial Perfusion Imaging Regadenoson (Lexiscan) Rest/Stress Patient: Valentine Mcnally Study Date: 2021 Height: / URN: Weight: / : 1955 Location: [facility] BMI/BSA: Age: 66 Gender: F Account#: *Interpreting Physician: Henry Weems MD *Technologist: * Mary Grace EcheverriaMT ; Jacklyn Leyva [facility] Indications: ELEVATED TROPONIN. Conclusions Impressions: 1. No significant perfusion abnormalities are no tay. 2. Normal myocardial perfusion imaging. 3. Left ventricular ejection fraction is within normal limits by visual estimate. Study data: Nuclear components: Rest/stress imag ing. Location: Stress laboratory. Consent: The risks, benefits, and alternatives to the procedure were explained to the patient and informed consent was obtained. PATIENT NAME: VALENTINE MCNALLY ACCOUNT #: [id number] Procedure data: Initial setup. The patient was b rought to the laboratory. A baseline ECG was recorded. Intrave nous access was obtained. ECG and blood pressure measurements we re monitored. Initial setup. The patient was brought to the laboratory . A baseline ECG was recorded. Intravenous access was obtained. ECG a nd blood pressure measurements were monitored. Regadenoson (Lexisc an) stress test. Regadenoson (Lexiscan) was administered by intra venous bolus, followed by a 5 ml saline flush. The total dose was 0.4mg . over 10.00 sec Isotope administration: + + +---- + *Stage *Rest *Stress * + + +---- + *Agent *Tc-99m tetrofosmin*Tc-99m tetrofosmin* + + +---- + *Injected dose *10 mCi *30 mCi * + + +---- + *Date *11/11/2021 *11/11/2021 * + + +---- + *Injection time *08:10 AM *08:52 AM * + + +---- + *Route *IV *IV * + + +---- + *Imaging time *08:20 AM *09:05 AM * + + +---- + *Injecting Tech initials*VA *VA * + + +---- + *Trailer Assembler initials *DT *DT * + + +---- + Image properties: Gated imaging was performed, w ith the patient in the supine position(s). Cardiac stress table: +--------+ + *Stage *Symptoms * +--------+ + *Baseline*No symptoms.* +--------+ + Myocardial perfusion imaging: The summed perfusi on score measured 13 during stress and 12 at rest, with a difference of 3. The TID ratio is 0.99. No significant perfusion abnormalities. Rest: LV regional perfusion: Moderately reduced perfusion of the mid-apical inferior, mid inferolateral, and apic al myocardium; mildly PATIENT NAME: VALENTINE MCNALLY ACCOUNT #: [id number] reduced perfusion of the apical anterior, basal inferior, basal inferolateral, and apical lateral myocardium. Pe rfusion score: 12. Stress: LV regional perfusion: Moderately reduce d perfusion of the mid-apical inferior, mid inferolateral, apical s eptal, and apical myocardium; mildly reduced perfusion of the apic al anterior, mid anterolateral, and apical lateral myocardium. Pe rfusion score: 13. Reversibility: LV regional perfusion: Moderately reduced perfusion of the apical septal myocardium; mildly reduced per fusion of the mid anterolateral myocardium. Perfusion score: 3. Vascular region quantitation: +--------+ + + +----- -------+ * *LAD extent*LCx extent*RCA extent*Total extent * +--------+ + + +----- -------+ *Stress *32 *33 *42 *33 * +--------+ + + +----- -------+ *Rest *16 *18 *37 *22 * +--------+ + + +----- -------+ *Ischemic*26 *19 *19 *20 * +--------+ + + +----- -------+ Gated SPECT: The calculated left ventricular eje ction fraction during stress is 42 %. Left ventricular ejection fracti on is within normal limits by visual estimate. Prepared and electron ically signed by: Henry Melara MD 11/11/2021 13:11 Electronically Signed by Henry Melara MD on at 1311 PATIENT NAME: VALENTINE MCNALLY ACCOUNT #: [id number] 2021-11-11 12:56:00-00:00 [facility] ([facility]) Discharge Summary REPORT#:[id number] REPORT STATUS: Signed DATE:11/11/21 TIME: 1256 PATIENT: VALENTINE MCNALLY UNIT #: [id number] ROOM/BED: [place] [address] : [birth year] AGE: 66 SEX: F ATTEND: Ivan Freitas MD ADM AUTHOR: Heber Rainey DO * ALL edits or amendments must be made on the [employer]/computer document * General Information Free Text A P: Patient seen and examined on 11/11/2021, denies any new complaints, would like to go home, awaiting stress test plan for t maikol. Subsequently discussed case with cardiology and cleared for discharge and outpati ent follow-up. Awaiting hemodialysis plan for today Date of admission: Observation Start Date: Date of admission: 11/04/21 Discharge date: 11/11/21 Hospital course: 66 y/o with tobacco abuse, ESRD, HTN, DM, heart disease who presents with AMS and COVID+ with hypoxia. COVID 19 pneumonia * pulmonary/ID * on DVT prophylaxis * Remdesivir day 5 out of 5 today around 11 pm; on Decadron started 11/04 for 10 days * pt sister states pt IS VACCINATED with j/j vac cine x2. * Now on room air, discharge for a total of 10 d ays of Decadron Hyperkalemia -resolved * HD, nephrology following Hypoxia -currently on room air * abnormal CXR * pulmonary following, history of tobacco abuse, cleared by pulmonology for discharge and outpatient follow-up Elevated troponin I level * stress test normal, being followed and monitor ed by cardiology HTN (hypertension) * BP improved * On valsartan, Coreg, as well as amlodipine, co ntinue to monitor Diabetes -blood glucose controlled * Continue SSI. Metabolic encephalopathy * CT head/PT/OT eval. probably multifactorial fr om all above. Seen by ID Nausea and vomiting * CT of the abdomen pelvis r eviewed, symptoms improved, advance to cardiac diet * Gastroenterology following, supportive care wi th antiemetics as needed End-stage renal disease * HD TTS per nephrology, plan for hemodialysis t maikol prior to discharge DVT prophylaxis: Heparin subcutaneous Disposition: Conditional discharge order placed, awaiting hemodialysis Med Rec Med Rec Discharge meds: Stop taking the following medications: ISOSORBIDE MONONITRATE SR (IMDUR) 60 MG TAB.SR.2 4H 60 MILLIGRAM ORAL DAILY. [AMLODIPINE/BESYLATE] DAILY. Continue taking these medications: ERGOCALCIFEROL (VITAMIN D2) 50,000 UNIT CAP 50,000 UNITS ORAL EVERY 7 DAYS. ACETAMINOPHEN/CODEINE (TYLEN OL WITH CODEINE 300-30 MG/12.5ML) 300 MG-30 MG/12.5 ML (12.5 ML) SOLUTION TWICE DAILY. CARVEDILOL (COREG) 25 MG TAB 25 MILLIGRAM ORAL TWICE DAILY WITH MEALS. FUROSEMIDE (LASIX) 40 MG TAB 40 MILLIGRAM ORAL DAILY. ASPIRIN (ASPIRIN) 81 MG TAB.CHEW 81 MILLIGRAM ORAL DAILY. SIMVASTATIN (ZOCOR) 10 MG TAB 10 MILLIGRAM ORAL DAILY. PROMETHAZINE (PHENERGAN) 25 MG TAB EVERY 8 HOURS NEEDED as needed for NAUSIA Start taking the following new medications: ISOSORBIDE MONONITRATE SR (IMDUR) 120 MG TAB.SR. 24H 120 MILLIGRAM ORAL DAILY. Qty = 30 No Refills VALSARTAN (DIOVAN) 160 MG TAB 160 MILLIGRAM ORAL TWICE DAILY. Qty = 60 No Refills amLODIPine (NORVASC) 10 MG TAB 10 MILLIGRAM ORAL DAILY. Qty = 30 No Refills FAMOTIDINE (PEPCID) 20 MG TAB 20 MILLIGRAM ORAL EVERY 24 HOURS. Qty = 30 No Refills dexAMETHasone (dexAMETHasone) 6 MG TAB 6 MILLIGRAM ORAL DAILY. Qty = 2 No Refills Objective VS/I O Last Documented: Result Date Time Pulse Ox 96 11/11 1420 B/P 146/66 11/11 1420 O2 Delivery Room air 11/11 1420 Temp 98.1 11/11 1420 Pulse 66 11/11 1420 Resp 20 11/11 1420 B/P Mean 100.2 11/11 1042 FiO2 98 11/11 0426 O2 Flow Rate 2 11/09 1515 PATIENT WEIGHT: Weight (lb): Weight (oz): Weight (kg): 101.500 Results Findings/Data: Laboratory Tests: 11/11 11/11 11/11 11/10 1658 1040 0746 1934 Chemistry POC Glucose (70 - 110 MG/DL) 241 H 157 H 172 H 314 H Free Text Obj Notes Free Text Obj Notes: General appearance: alert, awake, oriented Head/Eyes: atraumatic, normocephalic ENT: normal ear left, normal ear right, normal n ose Neck: full range of motion, no JVD Cardiovascular: normal heart sounds, regular rat e rhythm Respiratory: clear to auscultation, symmetric ex pansion, no distress Abdomen: non-tender, normal bowel sounds, soft, no distention Extremities: no clubbing, no cyanosis, no edema Neuro/LIVE HANGER: non focal, alert and oriented x3 Skin: dry, no rash Discharge Instructions PCP )( Follow up labs, proc, tx: Continue to self isolate for at least 20 days fr om onset of symptoms. Finish course of Decadron. Continu e dialysis as previously scheduled. Follow up wit h specialists as directed. Encourage smoking cessation. If yo u develop UTI symptoms, obtain urinalysis with PCP or ret urn to the ER. Continue to monitor and keep a log of your blood sugars. )( Discharge to: Home Health lan of Care Discharge Instructions Additional Discharge Routines: PCP Follow-Up, Co nsultant Follow-Up, F/U Labs/ Procedures )( Diet: Diabetic )( Activity: As Tolerated Follow-up Appointments PCP follow up: PCP: No Primary or Family Physician PCP follow up timeframe: In 3 days Special instructions: CALL OFFICE FOR APPOINTMENT Consulting provider 1: Provider 1: Henry Melara MD Specialty: Cardiology Consult follow up timeframe: In 1-2 weeks Special instructions: CALL OFFICE FOR APPOINTMENT Consulting provider 2: Provider 2: Odell Hebert MD Specialty: Infectious Disease Follow up timeframe: In 1-2 weeks Special instructions: CALL OFFICE FOR APPOINTMENT Consulting provider 3: Provider 3: Marie Salas MD Specialty: Nephrology Follow up timeframe: In 1-2 weeks Special instructions: CALL OFFICE FOR APPOINTMENT Consulting provider 4: Provider 4: Jay Jay Vora MD Specialty: Pulmonary Disease Follow up timeframe: In 1-2 weeks Special instructions: CALL OFFICE FOR APPOINTMENT Consulting provider 5: Provider 5: Heber Dunbar PHD Specialty: Gastroenterology Follow up timeframe: In 1-2 weeks Special instructions: CALL OFFICE FOR APPOINTMENT Quality: Discharge Advanced Care Plan 65 or Older Discussed with: surrogate decis. maker Electronically Signed by Heber Rainey DO on 10/22 11/11 at 1806 RPT #:[id number] END OF REPORT 2021-11-11 11:22:00-00:00 [facility] Cardiology Progress Note REPORT#:[id number] REPORT STATUS: Signed DATE:11/11/21 TIME: 112 PATIENT: VALENTINE MCNALLY UNIT #: [id number] ROOM/BED: [place] [address] : 53 AGE: 66 SEX: F ATTEND: Ivan Freitas MD ADM AUTHOR: Karyn Oneill NP * ALL edits or amendments must be made on the [employer]/computer document * Subjective Chief complaint: "when am I going?" Patient reports: No: chest pain, headache, palpitations, shortnes s of breath. Nursing reports: No: complaints. Comments: Pt is in RA, plan HD at bedside today. Objective General VS/I O: Vital Signs: Date Time Temp Pulse Resp B/P B/P Pulse O2 O2 F low FiO2 Mean Ox Delivery Rate 11/11 1042 97.7 64 16 163/69 100.2 93 Room air 11/11 0749 97.7 60 17 175/78 110.7 95 Room air 11/11 0426 97.5 60 17 165/78 106.7 98 Room air 98 11/10 2301 97.7 63 17 151/55 87.0 100 Room air 100 11/10 1939 97.9 71 17 165/67 100.0 96 Room air 96 11/10 1716 98.1 68 17 172/64 100.0 94 Room air PATIENT WEIGHT: Weight (lb): Weight (oz): Weight (kg): 101.500 Medications: Active Meds + DC'd Last 24 Hrs Isosorbide Mononitrate (Imdur 30 mg) 120 MG SHAHID Y PO Regadenoson (LEXISCAN SYRINGE) 0 .STK-MED ONE IV (DC) Famotidine (PEPCID) 20 MG Q24H PO Valsartan (DIOVAN 160MG TAB) 160 MG BID PO Amlodipine Besylate (NORVASC) 10 MG DAILY PO Simvastatin (SIMVASTATIN) 10 MG BEDTIME PO Calcium Acetate (CALCIUM ACETATE) 1,334 MG C MIGUEL LS PO Hydralazine HCl (APRESOLINE) 10 MG Q4H PRN PRN P O Aspirin (ASPIRIN) 81 MG DAILY PO Furosemide (LASIX) 40 MG DAILY PO Carvedilol (COREG) 25 MG BID MEALS PO Insulin Human Lispro (HUMALOG) 0 AC HS SUBQ Acetaminophen (TYLENOL) 650 MG Q4H PRN PRN PO Dexamethasone (DECADRON) 6 MG DAILY PO Dextrose/Water (DEXTROSE 50% W SYRINGE) 25 ML DIR PRN IV (CKD) Dextrose/Water (DEXTROSE 50% W SYRINGE) 50 ML DIR PRN IV (CKD) Glucagon (GLUCAGON) 1 MG ASDIR PRN IM Heparin Sodium (HEPARIN 5000 UNITS/ML) 5,000 UNI T Q8H SUBQ Ondansetron HCl (ZOFRAN) 4 MG Q4H PRN PRN IV Albumin Human (ALBUMINAR-25%) 12.5 GM ASDIR PRN IV Lidocaine HCl (LIDOCAINE HCL/PF) 0.5 ML ASDIR ID N I-DERMAL (CKD) Mannitol (MANNITOL 25% 12.5GM/50ML) 12.5 GM ASDI R PRN IV Sodium Chloride (SODIUM CHLORIDE 0.9%) 2,000 ML ASDIR PRN IV Sodium Chloride (SODIUM CHLORIDE) 10 ML ASDIR ID N IV Sodium Chloride (SODIUM CHLORIDE 0.9%) 250 ML DIR PRN IV Physical Exam General appearance: alert, awake, orient ed, no acute distress, conversational, mental status normal, no respiratory distress Head/Eyes: atraumatic, clear cornea, PERRLA ENT: moist mucosal membranes Neck: full range of motion, non-tender, no JVD Cardiovascular: CV assessment: no murmur Respiratory: decreased breath sounds, on oxygen (5L), no distress Abdomen: soft, non-tender, normal bowel sounds Genitourinary: no giraldo Upper extremity: UE assessment: normal capillary refill, normal temperature, no edema Lower extremity: LE assessment: normal temperature, no edema Neuro/LIVE HANGER: normal speech Psychiatry: normal affect Results Findings/Data: Laboratory Tests 11/10 11/10 11/11 11/11 1712 1934 0746 1040 Chemistry POC Glucose (70 - 110 MG/DL) 242 H 314 H 172 H 157 H Results: no new labs, vital signs reviewed, asad l signs stable, rhythm personally rev'd, current med profile rev'd Telemetry Interpretation: nsr Diagnosis, Assessment Plan Code status: full code Plan discussed with: patient, nurse Free Text DxA P Notes Free Text DxA P Notes: 66 y/o F w/ PMHx: End-stage renal diseas e on dialysis, hypertension, diabetic. Erp Project Manager is consulted for elevated troponin. -Elevated troponin, mild. Likely due to end-stag e renal disease High sensitive troponin 81. LDL 54.6 Nuclear stress test normal. Echocardiogram showed EF 50-55% - Hypertension. BP suboptimal - gave meds late t his am d/t stress test. Cont valsartan 160 mg p.o. twice daily, Norvasc 5 mg p.o. daily p.o. and carvedilol 25 mg p.o. daily and Imdur to 120 mg p.o. daily - End-stage renal disease. On dialysis. Per Neph ro. - COVID-19. Per Pulm On Decadron Ok d/c home from cardiac standpoint. Electronically Signed by Karyn Oneill NP on at 1425 Electronically Signed by Henry Melara MD on 10/22 11/11 at 0230 [facility] #:[id number] END OF REPORT 2021-11-11 10:19:00-00:00 [facility] Progress Note REPORT#:[id number] REPORT STATUS: Signed DATE:11/11/21 TIME: 1019 PATIENT: VALENTINE MCNALLY UNIT #: [id number] ROOM/BED: [place] [address] : 53 AGE: 66 SEX: F ATTEND: Ivan Freitas MD ADM AUTHOR: Jay Jay Vora MD * ALL edits or amendments must be made on the el [employer]/computer document * Subjective Chief complaint: No acute events overnight Reports feeling better She is vaccinated with the Tobi Tobi vacci ne Review of Systems ROS Constitutional: Denies: chills, fatigue. Respiratory: Denies: PAN (dyspnea on exertion), hemoptysis, p neumonia, productive cough ( sputum), SOB, wheezing. Cardiovascular: Denies: chest pain, edema, orthopnea. GI: Denies: abdominal pain, nausea, vomiting. Heme: Denies: bleeding. Neuro: Denies: headache. Objective General VS/I O: Last Documented: Result Date Time Pulse Ox 95 11/11 0749 B/P 175/78 11/11 0749 B/P Mean 110.7 11/11 0749 O2 Delivery Room air 11/11 0749 Temp 36.5 11/11 0749 Pulse 60 11/11 0749 Resp 17 11/11 0749 FiO2 98 11/11 0426 O2 Flow Rate 2 11/09 1515 PATIENT WEIGHT: Weight (lb): Weight (oz): Weight (kg): 101.500 Medications: Active Meds + DC'd Last 24 Hrs Isosorbide Mononitrate (Imdur 30 mg) 120 MG SHAHID Y PO Regadenoson (LEXISCAN SYRINGE) 0 .STK-MED ONE IV (DC) Famotidine (PEPCID) 20 MG Q24H PO Valsartan (DIOVAN 160MG TAB) 160 MG BID PO Amlodipine Besylate (NORVASC) 10 MG DAILY PO Famotidine (PEPCID) 20 MG Q24H IV (DC) Simvastatin (SIMVASTATIN) 10 MG BEDTIME PO Calcium Acetate (CALCIUM ACETATE) 1,334 MG C MIGUEL LS PO Hydralazine HCl (APRESOLINE) 10 MG Q4H PRN PRN P O Aspirin (ASPIRIN) 81 MG DAILY PO Furosemide (LASIX) 40 MG DAILY PO Isosorbide Mononitrate (Imdur 30 mg) 60 MG DAILY PO (DC) Carvedilol (COREG) 25 MG BID MEALS PO Insulin Human Lispro (HUMALOG) 0 AC HS SUBQ Acetaminophen (TYLENOL) 650 MG Q4H PRN PRN PO Dexamethasone (DECADRON) 6 MG DAILY PO Dextrose/Water (DEXTROSE 50% W SYRINGE) 25 ML DIR PRN IV (CKD) Dextrose/Water (DEXTROSE 50% W SYRINGE) 50 ML DIR PRN IV (CKD) Glucagon (GLUCAGON) 1 MG ASDIR PRN IM Heparin Sodium (HEPARIN 5000 UNITS/ML) 5,000 UNI T Q8H SUBQ Ondansetron HCl (ZOFRAN) 4 MG Q4H PRN PRN IV Albumin Human (ALBUMINAR-25%) 12.5 GM ASDIR PRN IV Lidocaine HCl (LIDOCAINE HCL/PF) 0.5 ML ASDIR ID N I-DERMAL (CKD) Mannitol (MANNITOL 25% 12.5GM/50ML) 12.5 GM ASDI R PRN IV Sodium Chloride (SODIUM CHLORIDE 0.9%) 2,000 ML ASDIR PRN IV Sodium Chloride (SODIUM CHLORIDE) 10 ML ASDIR ID N IV Sodium Chloride (SODIUM CHLORIDE 0.9%) 250 ML DIR PRN IV Physical Exam Head/eyes: atraumatic, normocephalic, PERRL Neck: full range of motion, non-tender Cardiovascular: normal heart sounds, normal S1/S 2, regular rate rhythm, no murmur, no rub, no gallop Respiratory/chest: on oxygen, aerating well, hany ar to auscultation, symmetric expansion, no distress, no tenderness Abdomen: soft, non-tender, no CVA tenderness, no distention Extremities: no cyanosis, no edema Musculoskeletal: no muscle spasm Neuro/LIVE HANGER: alert Diagnosis, Assessment Plan Free Text A P: Impressions: Acute hypoxemic respiratory failur COVID 19 infecction ESRD on HD DM CAD Recommendations: Patient is on room air Much improved clinically decadron for 10 days Finished course of remdesivir ESRD on HD per renal DVT ppx Full Code Discharge planning Quality: Gen Med Crit Care VTE Prophylaxis VTE prophylaxis initiated: yes Electronically Signed by Jay Jay Vora MD on 10/22 11/11 at 1021 RPT #:[id number] END OF REPORT 2021-11-11 08:23:00-00:00 [facility] REPORT#:[id number] REPORT STATUS: Signed DATE:11/11/21 TIME: 08 PATIENT: VALENTINE MCNALLY UNIT #: [id number] ROOM/BED: C136-1 : 53 AGE: 66 SEX: F ATTEND: Ivan Freitas MD ADM AUTHOR: Marie Salas MD * ALL edits or amendments must be made on the [employer]/eshtery document * Subjective Comments: Stress test today Objective General VS/I O: Vital Signs: Date Time Temp Pulse Resp B/P B/P Pulse O2 O2 F low FiO2 Mean Ox Delivery Rate 11/11 0749 97.7 60 17 175/78 110.7 95 Room air 11/11 0426 97.5 60 17 165/78 106.7 98 Room air 98 11/10 2301 97.7 63 17 151/55 87.0 100 Room air 100 11/10 1939 97.9 71 17 165/67 100.0 96 Room air 96 11/10 1716 98.1 68 17 172/64 100.0 94 Room air 11/10 1143 97.5 67 17 179/62 101.1 96 Room air PATIENT WEIGHT: Weight (lb): Weight (oz): Weight (kg): 101.500 Medications Active Meds + DC'd Last 24 Hrs Isosorbide Mononitrate (Imdur 30 mg) 120 MG SHAHID Y PO Famotidine (PEPCID) 20 MG Q24H PO Valsartan (DIOVAN 160MG TAB) 160 MG BID PO Lisinopril (ZESTRIL) 10 MG DAILY PO (DC) Amlodipine Besylate (NORVASC) 10 MG DAILY PO Famotidine (PEPCID) 20 MG Q24H IV (DC) Simvastatin (SIMVASTATIN) 10 MG BEDTIME PO Calcium Acetate (CALCIUM ACETATE) 1,334 MG C MIGUEL LS PO Hydralazine HCl (APRESOLINE) 10 MG Q4H PRN PRN P O Aspirin (ASPIRIN) 81 MG DAILY PO Furosemide (LASIX) 40 MG DAILY PO Isosorbide Mononitrate (Imdur 30 mg) 60 MG DAILY PO (DC) Carvedilol (COREG) 25 MG BID MEALS PO Insulin Human Lispro (HUMALOG) 0 AC HS SUBQ Acetaminophen (TYLENOL) 650 MG Q4H PRN PRN PO Dexamethasone (DECADRON) 6 MG DAILY PO Dextrose/Water (DEXTROSE 50% W SYRINGE) 25 ML DIR PRN IV (CKD) Dextrose/Water (DEXTROSE 50% W SYRINGE) 50 ML DIR PRN IV (CKD) Glucagon (GLUCAGON) 1 MG ASDIR PRN IM Heparin Sodium (HEPARIN 5000 UNITS/ML) 5,000 UNI T Q8H SUBQ Ondansetron HCl (ZOFRAN) 4 MG Q4H PRN PRN IV Albumin Human (ALBUMINAR-25%) 12.5 GM ASDIR PRN IV Lidocaine HCl (LIDOCAINE HCL/PF) 0.5 ML ASDIR ID N I-DERMAL (CKD) Mannitol (MANNITOL 25% 12.5GM/50ML) 12.5 GM ASDI R PRN IV Sodium Chloride (SODIUM CHLORIDE 0.9%) 2,000 ML ASDIR PRN IV Sodium Chloride (SODIUM CHLORIDE) 10 ML ASDIR ID N IV Sodium Chloride (SODIUM CHLORIDE 0.9%) 250 ML DIR PRN IV Physical Exam General appearance: alert, awake Head/eyes: atraumatic, normocephalic, PERRLA ENT: moist mucous membranes, normal nose Neck: no JVD, no lymphadenopathy Cardiovascular: normal heart sounds, regular rat e and rhythm, no rub Respiratory: decreased breath sounds Abdomen: non-tender, normal bowel sounds, soft, no rebound Genitourinary: no bladder distention, no flank p ain, no urinary catheter Extremities: no edema, no gangrene Neuro/LIVE HANGER: alert, oriented X 3, CN II-XII intact , normal speech Results Findings/Data: Laboratory Tests 11/11 11/10 11/10 11/10 0746 1934 1712 1140 Chemistry POC Glucose (70 - 110 MG/DL) 172 H 314 H 242 H 213 H Diagnosis, Assessment Plan Free Text A P: 1. ESRD continue with TTS schedule, HD TODAY 2. COVID-19 pneumonia ID on case, on remdesivir and steroid 3. Nausea vomiting symptoms resolved 4. Anemia of CKD start ÁNGEL if hemoglobin remains less than 10 5. Chest pain cardiology on case, stress test to day 6. Hypertension remains elevated, likely seconda ry to steroid. Started on amlodipine and ARB. Also on Coreg. Meds being ad justed per cardiology 7. DM2 per primary team Electronically Signed by Marie Salas MD on at 1105 RPT #:[id number] END OF REPORT 2021-11-10 13:47:00-00:00 [facility] ([facility]) Pulmonology Progress Note REPORT#:[id number] REPORT STATUS: Signed DATE:11/10/21 TIME: 1347 PATIENT: VALENTINE MCNALLY UNIT #: [id number] ROOM/BED: [place] [address] : 53 AGE: 66 SEX: F ATTEND: Ivan Freitas MD ADM AUTHOR: Jay Jay Vora MD * ALL edits or amendments must be made on the [employer]/computer document * Subjective Chief complaint: No acute events overnight Reports feeling better She is vaccinated with the [employer] vacc ine Review of Systems ROS Constitutional: Denies: chills, fatigue. Respiratory: Denies: PAN (dyspnea on exertion), hemoptysis, p neumonia, productive cough ( sputum), SOB, wheezing. Cardiovascular: Denies: chest pain, edema, orthopnea. GI: Denies: abdominal pain, nausea, vomiting. Heme: Denies: bleeding. Neuro: Denies: headache. Objective General VS/I O: Last Documented: Result Date Time Pulse Ox 96 11/10 1143 B/P 179/62 11/10 1143 B/P Mean 101.1 11/10 1143 O2 Delivery Room air 11/10 1143 Temp 36.4 11/10 1143 Pulse 67 11/10 1143 Resp 17 11/10 1143 FiO2 93 11/10 0415 O2 Flow Rate 2 11/09 1515 24 hour I O ending at 0700: 11/10 0700 11/09 1900 Intake Total 200 Output Total Balance 200 Intake, Oral 200 PATIENT WEIGHT: Weight (lb): Weight (oz): Weight (kg): 101.500 Medications: Active Meds + DC'd Last 24 Hrs Isosorbide Mononitrate (Imdur 30 mg) 120 MG SHAHID Y PO (UNV) Famotidine (PEPCID) 20 MG Q24H PO Valsartan (DIOVAN 160MG TAB) 160 MG BID PO Lisinopril (ZESTRIL) 10 MG DAILY PO (DC) Sodium Chloride (SODIUM CHLORIDE 0.9%) 50 ML Q24 H IV (DC) Remdesivir (REMDESIVIR 100MG LYOPHYLIZED) 100 MG Q24H IV (DC) Sodium Chloride (SODIUM CHLORIDE 0.9% 100 ML) 1 00 ML Amlodipine Besylate (NORVASC) 10 MG DAILY PO Famotidine (PEPCID) 20 MG Q24H IV (DC) Simvastatin (SIMVASTATIN) 10 MG BEDTIME PO Calcium Acetate (CALCIUM ACETATE) 1,334 MG C MIGUEL LS PO Hydralazine HCl (APRESOLINE) 10 MG Q4H PRN PRN P O Aspirin (ASPIRIN) 81 MG DAILY PO Furosemide (LASIX) 40 MG DAILY PO Isosorbide Mononitrate (Imdur 30 mg) 60 MG DAILY PO (DCr) Carvedilol (COREG) 25 MG BID MEALS PO Insulin Human Lispro (HUMALOG) 0 AC HS SUBQ Acetaminophen (TYLENOL) 650 MG Q4H PRN PRN PO Dexamethasone (DECADRON) 6 MG DAILY PO Dextrose/Water (DEXTROSE 50% W SYRINGE) 25 ML A SDIR PRN IV (CKD) Dextrose/Water (DEXTROSE 50% W SYRINGE) 50 ML DIR PRN IV (CKD) Glucagon (GLUCAGON) 1 MG ASDIR PRN IM Heparin Sodium (HEPARIN 5000 UNITS/ML) 5,000 UNI T Q8H SUBQ Ondansetron HCl (ZOFRAN) 4 MG Q4H PRN PRN IV Albumin Human (ALBUMINAR-25%) 12.5 GM ASDIR PRN IV Lidocaine HCl (LIDOCAINE HCL/PF) 0.5 ML ASDIR ID N I-DERMAL (CKD) Mannitol (MANNITOL 25% 12.5GM/50ML) 12.5 GM ASDI R PRN IV Sodium Chloride (SODIUM CHLORIDE 0.9%) 2,000 ML ASDIR PRN IV Sodium Chloride (SODIUM CHLORIDE) 10 ML ASDIR ID N IV Sodium Chloride (SODIUM CHLORIDE 0.9%) 250 ML DIR PRN IV Physical Exam Head/eyes: atraumatic, normocephalic, PERRL Neck: full range of motion, non-tender Cardiovascular: normal heart sounds, normal S1/S 2, regular rate rhythm, no murmur, no rub, no gallop Respiratory/chest: on oxygen, aerating well, hany ar to auscultation, symmetric expansion, no distress, no tenderness Abdomen: soft, non-tender, no CVA tenderness, no distention Extremities: no cyanosis, no edema Musculoskeletal: no muscle spasm Neuro/LIVE HANGER: alert Diagnosis, Assessment Plan Free Text A P: Impressions: Acute hypoxemic respiratory failur COVID 19 infecction ESRD on HD DM CAD Recommendations: Patient is on room air Much improved clinically decadron for 10 days Finished course of remdesivir ESRD on HD per renal DVT ppx Full Code Okay to discharge home from the pulmonary standp oint Quality: Gen Med Crit Care VTE Prophylaxis VTE prophylaxis initiated: yes Electronically Signed by Jay Jay Vora MD on 10/22 10/11 at 1348 RPT #:[id number] END OF REPORT 2021-11-10 13:38:00-00:00 [facility] ([facility]) Infectious Dis. Progress Note REPORT#:[id number] REPORT STATUS: Signed DATE:11/10/21 TIME: 1338 PATIENT: VALENTINE MCNALLY UNIT #: [id number] ROOM/BED: [place] [address] : 53 AGE: 66 SEX: F ATTEND: Ivan Freitas MD ADM AUTHOR: Odell Hebert MD * ALL edits or amendments must be made on the el [employer]/computer document * Subjective Chief complaint: Shortness of breath Patient reports: Yes: feeling better. No: fever, headache, nausea . Portions of this section were scribed by Guillermina Sweeney on 11/10/21 at 1338 Objective General VS/I O: Last Documented: Result Date Time Pulse Ox 96 11/10 1143 B/P 179/62 11/10 1143 B/P Mean 101.1 11/10 1143 O2 Delivery Room air 11/10 1143 Temp 36.4 11/10 1143 Pulse 67 11/10 1143 Resp 17 11/10 1143 FiO2 93 11/10 0415 O2 Flow Rate 2 11/09 1515 Vital Signs Date Temp Pulse Resp B/P B/P Mean Pulse Ox FiO2 11/09-11/10 36.4-36.7 67-74 17-18 161-181/62-8 1 01.1-109.2 93-99 93-96 1 24 hour I O ending at 0700: 11/10 0700 11/09 1900 Intake Total 200 Output Total Balance 200 Intake, Oral 200 PATIENT WEIGHT: Weight (lb): Weight (oz): Weight (kg): 101.500 Physical Exam Head/Eyes: atraumatic, clear cornea, EOMI, gordon l conjunctiva/sclera, normal eyelids/periorb, normocephalic, PERRL ENT: normal dentition, normal nose, normal phary nx, normal sinus Neck: full range of motion, non-tender, normal thyroid, supple/no meningismus, no bruit/NL carotids, no JVD, no masses or swell ing, no lymphadenopathy Cardiovascular: regular rate rhythm Respiratory: clear to auscultation, no distress Abdomen: non-tender, soft, n o distention, no guarding, no mass/organomegaly, no rebound Extremities: moves all, normal capillary refill, normal sensory, no edema Results Findings/Data: Laboratory Tests 11/10 11/10 11/09 11/09 1140 0753 1918 1715 Chemistry POC Glucose (70 - 110 MG/DL) 213 H 178 H 281 H 272 H Active Meds + DC'd Last 24 Hrs Isosorbide Mononitrate (Imdur 30 mg) 120 MG SHAHID Y PO (UNV) Famotidine (PEPCID) 20 MG Q24H PO Valsartan (DIOVAN 160MG TAB) 160 MG BID PO Lisinopril (ZESTRIL) 10 MG DAILY PO (DC) Sodium Chloride (SODIUM CHLORIDE 0.9%) 50 ML Q24 H IV (DC) Remdesivir (REMDESIVIR 100MG LYOPHYLIZED) 100 MG Q24H IV (DC) Sodium Chloride (SODIUM CHLORIDE 0.9% 100 ML) 1 00 ML Amlodipine Besylate (NORVASC) 10 MG DAILY PO Famotidine (PEPCID) 20 MG Q24H IV (DC) Simvastatin (SIMVASTATIN) 10 MG BEDTIME PO Calcium Acetate (CALCIUM ACETATE) 1,334 MG C MIGUEL LS PO Hydralazine HCl (APRESOLINE) 10 MG Q4H PRN PRN P O Aspirin (ASPIRIN) 81 MG DAILY PO Furosemide (LASIX) 40 MG DAILY PO Isosorbide Mononitrate (Imdur 30 mg) 60 MG DAILY PO (DCr) Carvedilol (COREG) 25 MG BID MEALS PO Insulin Human Lispro (HUMALOG) 0 AC HS SUBQ Acetaminophen (TYLENOL) 650 MG Q4H PRN PRN PO Dexamethasone (DECADRON) 6 MG DAILY PO Dextrose/Water (DEXTROSE 50% W SYRINGE) 25 ML DIR PRN IV (CKD) Dextrose/Water (DEXTROSE 50% W SYRINGE) 50 ML DIR PRN IV (CKD) Glucagon (GLUCAGON) 1 MG ASDIR PRN IM Heparin Sodium (HEPARIN 5000 UNITS/ML) 5,000 UNI T Q8H SUBQ Ondansetron HCl (ZOFRAN) 4 MG Q4H PRN PRN IV Albumin Human (ALBUMINAR-25%) 12.5 GM ASDIR PRN IV Lidocaine HCl (LIDOCAINE HCL/PF) 0.5 ML ASDIR ID N I-DERMAL (CKD) Mannitol (MANNITOL 25% 12.5GM/50ML) 12.5 GM ASDI R PRN IV Sodium Chloride (SODIUM CHLORIDE 0.9%) 2,000 ML ASDIR PRN IV Sodium Chloride (SODIUM CHLORIDE) 10 ML ASDIR ID N IV Sodium Chloride (SODIUM CHLORIDE 0.9%) 250 ML DIR PRN IV Active Meds + DC'd Last 24 Hrs Isosorbide Mononitrate (Imdur 30 mg) 120 MG SHAHID Y PO (UNV) Famotidine (PEPCID) 20 MG Q24H PO Valsartan (DIOVAN 160MG TAB) 160 MG BID PO Lisinopril (ZESTRIL) 10 MG DAILY PO (DC) Sodium Chloride (SODIUM CHLORIDE 0.9%) 50 ML Q24 H IV (DC) Remdesivir (REMDESIVIR 100MG LYOPHYLIZED) 100 MG Q24H IV (DC) Sodium Chloride (SODIUM CHLORIDE 0.9% 100 ML) 1 00 ML Amlodipine Besylate (NORVASC) 10 MG DAILY PO Famotidine (PEPCID) 20 MG Q24H IV (DC) Simvastatin (SIMVASTATIN) 10 MG BEDTIME PO Calcium Acetate (CALCIUM ACETATE) 1,334 MG C MIGUEL LS PO Hydralazine HCl (APRESOLINE) 10 MG Q4H PRN PRN P O Aspirin (ASPIRIN) 81 MG DAILY PO Furosemide (LASIX) 40 MG DAILY PO Isosorbide Mononitrate (Imdur 30 mg) 60 MG DAILY PO (DCr) Carvedilol (COREG) 25 MG BID MEALS PO Insulin Human Lispro (HUMALOG) 0 AC HS SUBQ Acetaminophen (TYLENOL) 650 MG Q4H PRN PRN PO Dexamethasone (DECADRON) 6 MG DAILY PO Dextrose/Water (DEXTROSE 50% W SYRINGE) 25 ML DIR PRN IV (CKD) Dextrose/Water (DEXTROSE 50% W SYRINGE) 50 ML DIR PRN IV (CKD) Glucagon (GLUCAGON) 1 MG ASDIR PRN IM Heparin Sodium (HEPARIN 5000 UNITS/ML) 5,000 UNI T Q8H SUBQ Ondansetron HCl (ZOFRAN) 4 MG Q4H PRN PRN IV Albumin Human (ALBUMINAR-25%) 12.5 GM ASDIR PRN IV Lidocaine HCl (LIDOCAINE HCL/PF) 0.5 ML ASDIR ID N I-DERMAL (CKD) Mannitol (MANNITOL 25% 12.5GM/50ML) 12.5 GM ASDI R PRN IV Sodium Chloride (SODIUM CHLORIDE 0.9%) 2,000 ML ASDIR PRN IV Sodium Chloride (SODIUM CHLORIDE) 10 ML ASDIR ID N IV Sodium Chloride (SODIUM CHLORIDE 0.9%) 250 ML DIR PRN IV Portions of this section were scribed by Guillermina Sweeney on 11/10/21 at 1338 Diagnosis, Assessment Plan Free Text A P: 1. Severe Covid with pneumonia and hypoxemia * Patient received a single dose of J J vaccine many months ago * s/p remdesivir 5 day s * Dexamethasone per recovery trial for 10 days d ay #6 * DVT prophylaxis * C-reactive protein * Oxygen supplementation to keep her oxygen satu ration more than 94% * room air 2. End-stage renal disease on hemodialysis 3. Diabetes mellitus type 2 4. Hypertension Portions of this section were scribed by Guillermina Sweeney on 11/10/21 at 1338 at 0622 RPT #:[id number] END OF REPORT 2021-11-10 12:43:00-00:00 [facility] ([facility]) Hospitalist Progress Note REPORT#:[id number] REPORT STATUS: Signed DATE:11/10/21 TIME: 1243 PATIENT: VALENTINE MCNALLY UNIT #: [id number] ROOM/BED: [facility] : 53 AGE: 66 SEX: F ATTEND: Ivan Freitas MD ADM AUTHOR: Heber Rainey DO * ALL edits or amendments must be made on the [facility] document * Subjective Comments: Patient seen and examined, d enies any complaints, discussed case with cardiology , plan for stress test today, spoke to the rick wise RN as the patient's RN does not have a working phone regarding n.p.o. kimmye r patient still subsequently discovered to be eating breakfast Objective General VS/I O: Vital Signs: Date Time Temp Pulse Resp B/P B/P Pulse O2 O2 F low FiO2 Mean Ox Delivery Rate 11/10 1143 97.5 67 17 179/62 101.1 96 Room air 11/10 0757 98.1 74 18 161/81 107.7 99 Room air 11/10 0415 98.1 69 17 180/68 105.2 93 Room air 93 11/09 2309 98.1 72 17 181/72 108.3 95 Room air 95 11/09 1921 97.9 74 17 172/74 106.9 96 Room air 96 11/09 1716 97.9 72 18 173/77 109.2 97 Room air 11/09 1515 Nasal 2 cannula 24 hour I O ending at 0700: 11/10 0700 11/09 1900 Intake Total 200 Output Total Balance 200 Intake, Oral 200 PATIENT WEIGHT: Weight (lb): Weight (oz): Weight (kg): 101.500 Medications: Active Meds + DC'd Last 24 Hrs Isosorbide Mononitrate (Imdur 30 mg) 120 MG SHAHID Y PO (UNV) Famotidine (PEPCID) 20 MG Q24H PO Valsartan (DIOVAN 160MG TAB) 160 MG BID PO Lisinopril (ZESTRIL) 10 MG DAILY PO (DC) Sodium Chloride (SODIUM CHLORIDE 0.9%) 50 ML Q24 H IV (DC) Remdesivir (REMDESIVIR 100MG LYOPHYLIZED) 100 MG Q24H IV (DC) Sodium Chloride (SODIUM CHLORIDE 0.9% 100 ML) 1 00 ML Amlodipine Besylate (NORVASC) 10 MG DAILY PO Famotidine (PEPCID) 20 MG Q24H IV (DC) Simvastatin (SIMVASTATIN) 10 MG BEDTIME PO Calcium Acetate (CALCIUM ACETATE) 1,334 MG C MIGUEL LS PO Hydralazine HCl (APRESOLINE) 10 MG Q4H PRN PRN P O Aspirin (ASPIRIN) 81 MG DAILY PO Furosemide (LASIX) 40 MG DAILY PO Isosorbide Mononitrate (Imdur 30 mg) 60 MG DAILY PO (DCr) Carvedilol (COREG) 25 MG BID MEALS PO Insulin Human Lispro (HUMALOG) 0 AC HS SUBQ Acetaminophen (TYLENOL) 650 MG Q4H PRN PRN PO Dexamethasone (DECADRON) 6 MG DAILY PO Dextrose/Water (DEXTROSE 50% W SYRINGE) 25 ML DIR PRN IV (CKD) Dextrose/Water (DEXTROSE 50% W SYRINGE) 50 ML DIR PRN IV (CKD) Glucagon (GLUCAGON) 1 MG ASDIR PRN IM Heparin Sodium (HEPARIN 5000 UNITS/ML) 5,000 UNI T Q8H SUBQ Ondansetron HCl (ZOFRAN) 4 MG Q4H PRN PRN IV Albumin Human (ALBUMINAR-25%) 12.5 GM ASDIR PRN IV Lidocaine HCl (LIDOCAINE HCL/PF) 0.5 ML ASDIR ID N I-DERMAL (CKD) Mannitol (MANNITOL 25% 12.5GM/50ML) 12.5 GM ASDI R PRN IV Sodium Chloride (SODIUM CHLORIDE 0.9%) 2,000 ML ASDIR PRN IV Sodium Chloride (SODIUM CHLORIDE) 10 ML ASDIR ID N IV Sodium Chloride (SODIUM CHLORIDE 0.9%) 250 ML DIR PRN IV Physical Exam General appearance: alert, awake, oriented Head/Eyes: atraumatic, normocephalic ENT: normal ear left, normal ear right, normal n ose Neck: full range of motion, no JVD Cardiovascular: normal heart sounds, regular rat e rhythm Respiratory: clear to auscultation, symmetric ex pansion, no distress Abdomen: non-tender, normal bowel sounds, soft, no distention Extremities: no clubbing, no cyanosis, no edema Neuro/LIVE HANGER: non focal, alert and oriented to hers elf, doesn't know the name of the hospital Skin: dry, no rash Results Findings/Data: Laboratory Tests 11/10 11/10 11/09 11/09 1140 0753 1918 1715 Chemistry POC Glucose (70 - 110 MG/DL) 213 H 178 H 281 H 272 H Diagnosis, Assessment Plan Problem List/A P: 1. COVID 2. Hyperkalemia 3. Hypoxia 4. Elevated troponin I level 5. HTN (hypertension) 6. Diabetes 7. Metabolic encephalopathy Free Text DxA P Notes Free text DxA P notes: 66 y/o with tobacco abuse, ESRD, HTN, DM, heart disease who presents with AMS and COVID+ with hypoxia. COVID 19 pneumonia * pulmonary/ID * on DVT prophylaxis * Remdesivir day 5 out of 5 today around 11 pm; on Decadron started 11/04 for 10 days * pt sister states pt IS VACCINATED with j/j vac cine x2. Hyperkalemia -resolved * HD, nephrology following Hypoxia -currently on room air * abnormal CXR * pulmonary following, history of tobacco abuse Elevated troponin I level * Plan for stress test today, being followed and monitored by cardiology HTN (hypertension) * BP uncontrolled * On valsartan, Coreg, as well as amlodipine, co ntinue to monitor Diabetes -blood glucose controlled * Continue SSI. Metabolic encephalopathy * CT head/PT/OT eval. probably multifactorial fr om all above. Pt sister was concerned about a UTI. (pt makes urine). Follow- up UA and culture. Nausea and vomiting * CT of the abdomen pelvis r eviewed, symptoms improved, advance to cardiac diet * Gastroenterology following, supportive care wi th antiemetics as needed End-stage renal disease * HD TTS per nephrology DVT prophylaxis: Heparin subcutaneous Disposition: Stress test tod ay, plan for HD tomorrow, continue to monitor blood pressure, discharge home soon Quality: Gen Med Crit Care VTE Prophylaxis VTE prophylaxis initiated: yes Current Medications Current medication review: I attest that the foregoing medication list in t he medical record is true, accurate, and complete to the best of my knowled ge. Advanced Care Plan 65 or Older Discussed with: surrogate fela. maker Discussion included: living will Electronically Signed by Heber Rainey DO on 10/22 10/11 at 1246 RPT #:[id number] END OF REPORT 2021-11-10 11:39:00-00:00 [facility] ([facility]) Pharmacy Prog.Note IV to PO REPORT#:[id number] REPORT STATUS: Signed DATE:11/10/21 TIME: 1139 PATIENT: VALENTINE MCNALLY UNIT #: [id number] ROOM/BED: [place] [address] : 53 AGE: 66 SEX: F ATTEND: Ivan Freitas MD ADM AUTHOR: Isrrael Freitas RPh * ALL edits or amendments must be made on the [facility] document * IV to PO Adjustment IV to PO Adjustment Medication: From: Famotidine 20 mg IV q24h To: Famotidine 20 mg PO daily Diet: cardiac Inclusion criteria: Tolerating: PO/Tube medication, clear liq/advan cing diet, 24 hrs of enteral feeding Vital signs: Vital Signs Date Temp Pulse Resp B/P B/P Mean Pulse Ox FiO2 11/07-11/10 97.9-98.6 60-78 16- 139-188/62-82 90.2-113.5 91-100 93-96 Labs: Laboratory Test:WBC-72 Hrs 11/09 11/08 0420 0430 Hematology WBC (4.5 - 11.0 x10 3/uL) 4.8 5.6 Additional comments: A/P: 11/10: Pt is on a cardia c diet and is able to tolerate other PO medications. She is also reported to be i mproving w/ regards to n/v; ondansetron has not been administered since 11/05. Pt is currently on famotidine 20 mg IV q24h for GERD. Given that pt is a good cand idate for IV to PO conversion, pharmacy will modify the regimen to famotidine 20 mg PO daily per pro tocol. Electronically Signed by Isrrael Freitas RPh on at 1140 RPT #:[id number] END OF REPORT 2021-11-10 10:29:00-00:00 [facility] ([facility]) Nephrology Progress Note REPORT#:[id number] REPORT STATUS: Signed DATE:11/10/21 TIME: 1029 PATIENT: VALENTINE MCNALLY UNIT #: [id number] ROOM/BED: [facility] : 53 AGE: 66 SEX: F ATTEND: Ivan Freitas MD ADM AUTHOR: Marie Salas MD * ALL edits or amendments must be made on the [facility] document * Subjective Comments: Wants to go home, on room air Objective General VS/I O: Vital Signs: Date Time Temp Pulse Resp B/P B/P Pulse O2 O2 F low FiO2 Mean Ox Delivery Rate 11/10 0757 98.1 74 18 161/81 107.7 99 Room air 11/10 0415 98.1 69 17 180/68 105.2 93 Room air 93 11/09 2309 98.1 72 17 181/72 108.3 95 Room air 95 11/09 1921 97.9 74 17 172/74 106.9 96 Room air 96 11/09 1716 97.9 72 18 173/77 109.2 97 Room air 11/09 1515 Nasal 2 cannula 11/09 1142 97.9 67 18 178/64 101.6 100 Room air 24 hour I O ending at 0700: 11/10 0700 11/09 1900 Intake Total 200 Output Total Balance 200 Intake, Oral 200 PATIENT WEIGHT: Weight (lb): Weight (oz): Weight (kg): 101.500 Medications Active Meds + DC'd Last 24 Hrs Valsartan (DIOVAN 160MG TAB) 160 MG BID PO Lisinopril (ZESTRIL) 10 MG DAILY PO (DC) Sodium Chloride (SODIUM CHLORIDE 0.9%) 50 ML Q24 H IV (DC) Remdesivir (REMDESIVIR 100MG LYOPHYLIZED) 100 MG Q24H IV (DC) Sodium Chloride (SODIUM CHLORIDE 0.9% 100 ML) 1 00 ML Amlodipine Besylate (NORVASC) 10 MG DAILY PO Famotidine (PEPCID) 20 MG Q24H IV Simvastatin (SIMVASTATIN) 10 MG BEDTIME PO Calcium Acetate (CALCIUM ACETATE) 1,334 MG C MIGUEL LS PO Hydralazine HCl (APRESOLINE) 10 MG Q4H PRN PRN P O Aspirin (ASPIRIN) 81 MG DAILY PO Furosemide (LASIX) 40 MG DAILY PO Isosorbide Mononitrate (Imdur 30 mg) 60 MG DAILY PO Carvedilol (COREG) 25 MG BID MEALS PO Insulin Human Lispro (HUMALOG) 0 AC HS SUBQ Acetaminophen (TYLENOL) 650 MG Q4H PRN PRN PO Dexamethasone (DECADRON) 6 MG DAILY PO Dextrose/Water (DEXTROSE 50% W SYRINGE) 25 ML DIR PRN IV (CKD) Dextrose/Water (DEXTROSE 50% W SYRINGE) 50 ML DIR PRN IV (CKD) Glucagon (GLUCAGON) 1 MG ASDIR PRN IM Heparin Sodium (HEPARIN 5000 UNITS/ML) 5,000 UNI T Q8H SUBQ Ondansetron HCl (ZOFRAN) 4 MG Q4H PRN PRN IV Albumin Human (ALBUMINAR-25%) 12.5 GM ASDIR PRN IV Lidocaine HCl (LIDOCAINE HCL/PF) 0.5 ML ASDIR ID N I-DERMAL (CKD) Mannitol (MANNITOL 25% 12.5GM/50ML) 12.5 GM ASDI R PRN IV Sodium Chloride (SODIUM CHLORIDE 0.9%) 2,000 ML ASDIR PRN IV Sodium Chloride (SODIUM CHLORIDE) 10 ML ASDIR ID N IV Sodium Chloride (SODIUM CHLORIDE 0.9%) 250 ML DIR PRN IV Physical Exam General appearance: alert, awake Head/eyes: atraumatic, normocephalic, PERRLA ENT: moist mucous membranes, normal nose Neck: no JVD, no lymphadenopathy Cardiovascular: normal heart sounds, regular rat e and rhythm, no rub Respiratory: decreased breath sounds Abdomen: non-tender, normal bowel sounds, soft, no rebound Genitourinary: no bladder distention, no flank p ain, no urinary catheter Extremities: no edema, no gangrene Neuro/LIVE HANGER: alert, oriented X 3, CN II-XII intact , normal speech Results Findings/Data: Laboratory Tests 11/10 11/09 11/09 11/09 0753 1918 1715 1141 Chemistry POC Glucose (70 - 110 MG/DL) 178 H 281 H 272 H 227 H Diagnosis, Assessment Plan Free Text A P: 1. ESRD continue with TTS schedule 2. Electrolytes within normal range today 3. Nausea vomiting symptoms resolved 4. Anemia of CKD start ÁNGEL if hemoglobin remains less than 10 5. COVID-19 pneumonia ID on case, on remdesivir and steroid 6. Hypertension remains elevated, likely seconda ry to steroid. Started on amlodipine and ARB. Meds being adjusted per card iology 7. DM2 per primary team 8. Epigastric pain cardiology on case, stress te st canceled today as patient ate breakfast. Stress test scheduled for tomorro w. Electronically Signed by Marie Salas MD on at 1548 RPT #:[id number] END OF REPORT 2021-11-10 08:33:00-00:00 [facility] ([facility]) Cardiology Progress Note REPORT#:[id number] REPORT STATUS: Signed DATE:11/10/21 TIME: 832 PATIENT: VALENTINE MCNALLY UNIT #: [id number] ROOM/BED: [place] [address] : 53 AGE: 66 SEX: F ATTEND: Ivan Freitas MD ADM AUTHOR: Karyn Oneill RESIDENT ASSISTANT CNA * ALL edits or amendments must be made on the [facility]/computer document * See Addendum Subjective Chief complaint: wants to go home. Patient reports: No: chest pain, palpitations. Nursing reports: No: complaints. Comments: Patient seen in room air, eating breakfast. Discussed w/bedside RN, pt needs to NPO for her stress test today. Objective General VS/I O: 24 hour I O ending at 0700: 11/09 1900 11/10 0700 Intake Total 200 Output Total Balance 200 Intake, Oral 200 Vital Signs: Date Time Temp Pulse Resp B/P B/P Pulse O2 O2 F low FiO2 Mean Ox Delivery Rate 11/10 1143 97.5 67 17 179/62 101.1 96 Room air 11/10 0757 98.1 74 18 161/81 107.7 99 Room air 11/10 0415 98.1 69 17 180/68 105.2 93 Room air 93 11/09 2309 98.1 72 17 181/72 108.3 95 Room air 95 11/09 1921 97.9 74 17 172/74 106.9 96 Room air 96 11/09 1716 97.9 72 18 173/77 109.2 97 Room air 11/09 1515 Nasal 2 cannula PATIENT WEIGHT: Weight (lb): Weight (oz): Weight (kg): 101.500 Medications: Active Meds + DC'd Last 24 Hrs Famotidine (PEPCID) 20 MG Q24H PO Valsartan (DIOVAN 160MG TAB) 160 MG BID PO Lisinopril (ZESTRIL) 10 MG DAILY PO (DC) Sodium Chloride (SODIUM CHLORIDE 0.9%) 50 ML Q24 H IV (DC) Remdesivir (REMDESIVIR 100MG LYOPHYLIZED) 100 MG Q24H IV (DC) Sodium Chloride (SODIUM CHLORIDE 0.9% 100 ML) 1 00 ML Amlodipine Besylate (NORVASC) 10 MG DAILY PO Famotidine (PEPCID) 20 MG Q24H IV (DC) Simvastatin (SIMVASTATIN) 10 MG BEDTIME PO Calcium Acetate (CALCIUM ACETATE) 1,334 MG C MIGUEL LS PO Hydralazine HCl (APRESOLINE) 10 MG Q4H PRN PRN P O Aspirin (ASPIRIN) 81 MG DAILY PO Furosemide (LASIX) 40 MG DAILY PO Isosorbide Mononitrate (Imdur 30 mg) 60 MG DAILY PO Carvedilol (COREG) 25 MG BID MEALS PO Insulin Human Lispro (HUMALOG) 0 AC HS SUBQ Acetaminophen (TYLENOL) 650 MG Q4H PRN PRN PO Dexamethasone (DECADRON) 6 MG DAILY PO Dextrose/Water (DEXTROSE 50% W SYRINGE) 25 ML DIR PRN IV (CKD) Dextrose/Water (DEXTROSE 50% W SYRINGE) 50 ML DIR PRN IV (CKD) Glucagon (GLUCAGON) 1 MG ASDIR PRN IM Heparin Sodium (HEPARIN 5000 UNITS/ML) 5,000 UNI T Q8H SUBQ Ondansetron HCl (ZOFRAN) 4 MG Q4H PRN PRN IV Albumin Human (ALBUMINAR-25%) 12.5 GM ASDIR PRN IV Lidocaine HCl (LIDOCAINE HCL/PF) 0.5 ML ASDIR ID N I-DERMAL (CKD) Mannitol (MANNITOL 25% 12.5GM/50ML) 12.5 GM ASDI R PRN IV Sodium Chloride (SODIUM CHLORIDE 0.9%) 2,000 ML ASDIR PRN IV Sodium Chloride (SODIUM CHLORIDE) 10 ML ASDIR ID N IV Sodium Chloride (SODIUM CHLORIDE 0.9%) 250 ML DIR PRN IV Physical Exam General appearance: alert, awake, orient ed, no acute distress, conversational, mental status normal, no respiratory distress Head/Eyes: atraumatic, clear cornea, PERRLA ENT: moist mucosal membranes Neck: full range of motion, non-tender, no JVD Cardiovascular: CV assessment: no murmur Respiratory: decreased breath sounds, on oxygen (5L), no distress Abdomen: soft, non-tender, normal bowel sounds Genitourinary: no giraldo Upper extremity: UE assessment: normal capillary refill, normal temperature, no edema Lower extremity: LE assessment: normal temperature, no edema Neuro/LIVE HANGER: normal speech Psychiatry: normal affect Results Findings/Data: Laboratory Tests 11/09 11/09 11/10 11/10 1715 1918 0753 1140 Chemistry POC Glucose (70 - 110 MG/DL) 272 H 281 H 178 H 213 H Results: no new labs, vital signs reviewed, rhythm personally rev'd, current med profile rev'd Telemetry Interpretation: nsr Diagnosis, Assessment Plan Plan discussed with: patient, family, nurse Free Text DxA P Notes Free Text DxA P Notes: 66 y/o F w/ PMHx: End-stage renal diseas e on dialysis, hypertension, diabetic. Erp Project Manager is consulted for elevated troponin. -Elevated troponin, mild. Likely due to end-stag e renal disease High sensitive troponin 81. LDL 54.6 Will do nuclear stress test today Echocardiogram showed EF 50-55% - Hypertension. BP suboptimal DC lisinopril Start valsartan 160 mg p.o. twice daily Continue Norvasc 5 mg p.o. daily p.o. and carve dilol 25 mg p.o. daily. Increase Imdur to 120 mg p.o. daily - End-stage renal disease. On dialysis. Per Neph ro. - COVID-19. Per Pulm On Decadron if Stress test normal-okay to DC patient home fr om cardiac standpoint. Electronically Signed by Karyn Oneill NP on at 1236 Electronically Signed by Henry Melara MD on 10/22 10/11 at 1850 Addendum 1: 11/10/21 1410 by Karyn Oneill NP Stress test was not done today d/t pt had breakf ast. I discussed w/ stress test dept and bedside RN - pt will be NPO after MN, nuclear stress test will be done early in am so pt can be discharge home if her stress test is normal. Updated plan of care w/ Dr. Rainey. Electronically Signed by Karyn Oneill NP on at 1412 Electronically Signed by Henry Melara MD on 10/22 10/11 at 1850 RPT #:[id number] END OF REPORT 2021-11-09 18:42:00-00:00 [facility] ([facility] Nephrology Progress Note REPORT#:[id number] REPORT STATUS: Signed DATE:11/09/21 TIME: 1841 PATIENT: VALENTINE MCNALLY UNIT #: [id number] ROOM/BED: [place] [address] : 53 AGE: 66 SEX: F ATTEND: Ivan Freitas MD ADM AUTHOR: Mason Barnes * ALL edits or amendments must be made on the [facility]/eshtery document * Subjective Comments: Events noted. On room air. Eating well. Wants to go home. Objective General VS/I O: Vital Signs: Date Time Temp Pulse Resp B/P B/P Pulse O2 O2 F low FiO2 Mean Ox Delivery Rate 11/09 1716 97.9 72 18 173/77 109.2 97 Room air 11/09 1515 Nasal 2 cannula 11/09 1142 97.9 67 18 178/64 101.6 100 Room air 11/09 0751 98.4 61 17 188/71 109.8 92 Room air 11/09 0321 62 17 186/74 111.1 11/09 0320 98.4 65 17 92 Room air 11/08 2357 98.4 63 17 164/70 101.3 93 Room air 11/08 1952 98.6 78 17 178/74 108.6 93 Room air PATIENT WEIGHT: Weight (lb): Weight (oz): Weight (kg): 101.500 Medications Active Meds + DC'd Last 24 Hrs Lisinopril (ZESTRIL) 10 MG DAILY PO Sodium Chloride (SODIUM CHLORIDE 0.9%) 50 ML Q24 H IV Remdesivir (REMDESIVIR 100MG LYOPHYLIZED) 100 MG Q24H IV Sodium Chloride (SODIUM CHLORIDE 0.9% 100 ML) 1 00 ML Amlodipine Besylate (NORVASC) 10 MG DAILY PO Famotidine (PEPCID) 20 MG Q24H IV Simvastatin (SIMVASTATIN) 10 MG BEDTIME PO Calcium Acetate (CALCIUM ACETATE) 1,334 MG C MIGUEL LS PO Hydralazine HCl (APRESOLINE) 10 MG Q4H PRN PRN P O Aspirin (ASPIRIN) 81 MG DAILY PO Furosemide (LASIX) 40 MG DAILY PO Isosorbide Mononitrate (Imdur 30 mg) 60 MG DAILY PO Carvedilol (COREG) 25 MG BID MEALS PO Insulin Human Lispro (HUMALOG) 0 AC HS SUBQ Acetaminophen (TYLENOL) 650 MG Q4H PRN PRN PO Dexamethasone (DECADRON) 6 MG DAILY PO Dextrose/Water (DEXTROSE 50% W SYRINGE) 25 ML DIR PRN IV (CKD) Dextrose/Water (DEXTROSE 50% W SYRINGE) 50 ML DIR PRN IV (CKD) Glucagon (GLUCAGON) 1 MG ASDIR PRN IM Heparin Sodium (HEPARIN 5000 UNITS/ML) 5,000 UNI T Q8H SUBQ Ondansetron HCl (ZOFRAN) 4 MG Q4H PRN PRN IV Albumin Human (ALBUMINAR-25%) 12.5 GM ASDIR PRN IV Lidocaine HCl (LIDOCAINE HCL/PF) 0.5 ML ASDIR ID N I-DERMAL (CKD) Mannitol (MANNITOL 25% 12.5GM/50ML) 12.5 GM ASDI R PRN IV Sodium Chloride (SODIUM CHLORIDE 0.9%) 2,000 ML ASDIR PRN IV Sodium Chloride (SODIUM CHLORIDE) 10 ML ASDIR ID N IV Sodium Chloride (SODIUM CHLORIDE 0.9%) 250 ML DIR PRN IV Physical Exam General appearance: alert, awake Head/eyes: atraumatic, normocephalic, PERRLA ENT: moist mucous membranes, normal nose Neck: no JVD, no lymphadenopathy Cardiovascular: normal heart sounds, regular rat e and rhythm, no rub Respiratory: decreased breath sounds Abdomen: non-tender, normal bowel sounds, soft, no rebound Genitourinary: no bladder distention, no flank p ain, no urinary catheter Extremities: no edema, no gangrene Neuro/LIVE HANGER: alert, oriented X 3, CN II-XII intact , normal speech Results Findings/Data: Laboratory Tests 11/09 11/09 11/09 11/09 11/08 1715 1141 0750 0420 1950 Chemistry Sodium (134 - 147 mEq/L) 141 Potassium (3.4 - 5.0 mEq/L) 4.1 Chloride (100 - 108 mEq/L) 101 Carbon Dioxide (21 - 33 mEq/l) 29 Anion Gap (0 - 20) 15 BUN (7 - 18 mg/dL) 40 H Creatinine (0.6 - 1.3 mg/dL) 5.4 H Glomerular Filtr Rate (80 - 90) 9.5 L Glucose (70 - 110 mg/dL) 251 H POC Glucose (70 - 110 MG/DL) 272 H 227 H 238 H 322 H Calcium (8.0 - 10.5 mg/dL) 8.7 Total Bilirubin (0.0 - 1.0 mg/dL) 0.60 Direct Bilirubin (0.0 - 0.30 MG/DL) 0.20 Indirect Bilirubin (MG/DL) 0.40 AST (15 - 37 IUnit/L) 37 ALT (30 - 65 IUnit/L) 19 L Total Alk Phosphatase (20 - 125 92 IUnit/L) Total Protein (6.4 - 8.2 g/dL) 6.3 L Albumin (3.4 - 5.0 g/dL) 2.90 L Laboratory Tests 11/09 0420 Hematology WBC (4.5 - 11.0 x10 3/uL) 4.8 RBC (3.54 - 5.02 x10 6/uL) 4.13 Hgb (11.0 - 15.0 g/dL) 12.0 Hct (33.0 - 45.0 %) 39.2 MCV (81.0 - 99.0 fL) 94.9 MCH (27.0 - 33.0 pg) 29.1 MCHC (33.0 - 37.0 g/dL) 30.6 L RDW (11.5 - 14.5 %) 14.4 Plt Count (150 - 400 x10 3/uL) 133 L MPV (7.0 - 9.0 fL) 12.8 H Neut % (Auto) (56.0 - 77.0 %) 86.7 H Lymph % (Auto) (14.0 - 32.0 %) 7.4 L [place] % (Auto) (4.8 - 9.0 %) 5.5 Eos % (Auto) (0.3 - 3.7 %) 0.0 L Baso % (Auto) (0.0 - 2.0 %) 0.0 Neut # (Auto) (2.0 - 7.6 x10 3/uL) 4.13 Lymph # (Auto) (1.0 - 3.8 x10 3/uL) 0.35 L [place] # (Auto) (0.1 - 0.8 x10 3/uL) 0.26 Eos # (Auto) (0.0 - 0.2 x10 3/uL) 0.00 Baso # (Auto) (0.0 - 0.2 x10 3/uL) 0.00 Abs Immat Gran (auto) (0.00 - 0.03 x10 3/uL) 0. 02 Add Manual Diff NO Immature Gran % (0.0 - 2.0 %) 0.4 Nucleated RBC % (0 - 0 %) 0.0 Nucleated RBCs # (Man) (0.0 - 0.1 x10 3/uL) 0.0 0 Diagnosis, Assessment Plan Free Text A P: 1. ESRD continue with TTS schedule 2. Electrolytes within normal range today 3. Nausea vomiting symptoms improving. CT abdome n and pelvis noted. Eating diet 4. Anemia of CKD start ÁNGEL if hemoglobin remains less than 10 5. COVID-19 pneumonia ID consulted, started on r emdesivir and steroid 6. Hypertension remains elevated, likely seconda ry to steroid. Started on amlodipine and lisinopril. 7. DM2 per primary team at 1844 RPT #:[id number] END OF REPORT 2021-11-09 11:04:00-00:00 [facility] ([facility] Hospitalist Progress Note REPORT#:[id number] REPORT STATUS: Signed DATE:11/09/21 TIME: 1104 PATIENT: VALENTINE MCNALLY UNIT #: [id number] ROOM/BED: [place] [address] : 53 AGE: 66 SEX: F ATTEND: Ivan Freitas MD ADM AUTHOR: Arlen Gamble MD * ALL edits or amendments must be made on the [employer]/computer document * Subjective Chief complaint: not on any oxygen. doing well. Objective General VS/I O: Vital Signs: Date Time Temp Pulse Resp B/P B/P Pulse O2 O2 Flow FiO2 Mean Ox Delivery Rate 11/09 0751 98.4 61 17 188/71 109.8 92 Room air 11/09 0321 62 17 186/74 111.1 11/09 0320 98.4 65 17 92 Room air 11/08 2357 98.4 63 17 164/70 101.3 93 Room air 11/08 1952 98.6 78 17 178/74 108.6 93 Room air 11/08 1837 78 16 173/75 107.8 94 11/08 1647 98.1 68 17 188/76 113.5 94 Room air 11/08 1313 98.1 61 20 162/82 95 Room air 11/08 1201 97.9 63 17 165/69 100.9 91 Room air 11/08 1155 93 Room air PATIENT WEIGHT: Weight (lb): Weight (oz): Weight (kg): 101.500 Medications: Active Meds + DC'd Last 24 Hrs Lisinopril (ZESTRIL) 10 MG DAILY PO (UNVr) Sodium Chloride (SODIUM CHLORIDE 0.9%) 50 ML Q24 H IV Remdesivir (REMDESIVIR 100MG LYOPHYLIZED) 100 MG Q24H IV Sodium Chloride (SODIUM CHLORIDE 0.9% 100 ML) 1 00 ML Amlodipine Besylate (NORVASC) 10 MG DAILY PO Famotidine (PEPCID) 20 MG Q24H IV Simvastatin (SIMVASTATIN) 10 MG BEDTIME PO Calcium Acetate (CALCIUM ACETATE) 1,334 MG C ME ALS PO Hydralazine HCl (APRESOLINE) 10 MG Q4H PRN PRN P O Aspirin (ASPIRIN) 81 MG DAILY PO Furosemide (LASIX) 40 MG DAILY PO Isosorbide Mononitrate (Imdur 30 mg) 60 MG DAILY PO Carvedilol (COREG) 25 MG BID MEALS PO Insulin Human Lispro (HUMALOG) 0 AC HS SUBQ Acetaminophen (TYLENOL) 650 MG Q4H PRN PRN PO Dexamethasone (DECADRON) 6 MG DAILY PO Dextrose/Water (DEXTROSE 50% W SYRINGE) 25 ML DIR PRN IV (CKD) Dextrose/Water (DEXTROSE 50% W SYRINGE) 50 ML DIR PRN IV (CKD) Glucagon (GLUCAGON) 1 MG ASDIR PRN IM Heparin Sodium (HEPARIN 5000 UNITS/ML) 5,000 UNI T Q8H SUBQ Ondansetron HCl (ZOFRAN) 4 MG Q4H PRN PRN IV Albumin Human (ALBUMINAR-25%) 12.5 GM ASDIR PRN IV Lidocaine HCl (LIDOCAINE HCL/PF) 0.5 ML ASDIR ID N I-DERMAL (CKD) Mannitol (MANNITOL 25% 12.5GM/50ML) 12.5 GM ASDI R PRN IV Sodium Chloride (SODIUM CHLORIDE 0.9%) 2,000 ML ASDIR PRN IV Sodium Chloride (SODIUM CHLORIDE) 10 ML ASDIR ID N IV Sodium Chloride (SODIUM CHLORIDE 0.9%) 250 ML DIR PRN IV Physical Exam General appearance: no acute distress Head/Eyes: atraumatic, normocephalic ENT: normal ear left, normal ear right, normal n ose Neck: full range of motion, no JVD Cardiovascular: normal heart sounds, regular rat e rhythm Respiratory: clear to auscultation, symmetric ex pansion, no distress Abdomen: non-tender, normal bowel sounds, soft, no distention Extremities: no clubbing, no cyanosis, no edema Neuro/LIVE HANGER: non focal, alert and oriented to hers elf, doesn't know the name of the hospital Skin: dry, no rash Results Findings/Data: Laboratory Tests 11/09 11/09 11/08 11/08 11/08 0750 0420 1950 1643 1200 Chemistry Sodium (134 - 147 mEq/L) 141 Potassium (3.4 - 5.0 mEq/L) 4.1 Chloride (100 - 108 mEq/L) 101 Carbon Dioxide (21 - 33 mEq/l) 29 Anion Gap (0 - 20) 15 BUN (7 - 18 mg/dL) 40 H Creatinine (0.6 - 1.3 mg/dL) 5.4 H Glomerular Filtr Rate (80 - 90) 9.5 L Glucose (70 - 110 mg/dL) 251 H POC Glucose (70 - 110 MG/DL) 238 H 322 H 196 H 281 H Calcium (8.0 - 10.5 mg/dL) 8.7 Total Bilirubin (0.0 - 1.0 mg/dL) 0.60 Direct Bilirubin (0.0 - 0.30 MG/DL) 0.20 Indirect Bilirubin (MG/DL) 0.40 AST (15 - 37 IUnit/L) 37 ALT (30 - 65 IUnit/L) 19 L Total Alk Phosphatase (20 - 125 92 IUnit/L) Total Protein (6.4 - 8.2 g/dL) 6.3 L Albumin (3.4 - 5.0 g/dL) 2.90 L Laboratory Tests 11/09 0420 Hematology WBC (4.5 - 11.0 x10 3/uL) 4.8 RBC (3.54 - 5.02 x10 6/uL) 4.13 Hgb (11.0 - 15.0 g/dL) 12.0 Hct (33.0 - 45.0 %) 39.2 MCV (81.0 - 99.0 fL) 94.9 MCH (27.0 - 33.0 pg) 29.1 MCHC (33.0 - 37.0 g/dL) 30.6 L RDW (11.5 - 14.5 %) 14.4 Plt Count (150 - 400 x10 3/uL) 133 L MPV (7.0 - 9.0 fL) 12.8 H Neut % (Auto) (56.0 - 77.0 %) 86.7 H Lymph % (Auto) (14.0 - 32.0 %) 7.4 L [place] % (Auto) (4.8 - 9.0 %) 5.5 Eos % (Auto) (0.3 - 3.7 %) 0.0 L Baso % (Auto) (0.0 - 2.0 %) 0.0 Neut # (Auto) (2.0 - 7.6 x10 3/uL) 4.13 Lymph # (Auto) (1.0 - 3.8 x10 3/uL) 0.35 L [place] # (Auto) (0.1 - 0.8 x10 3/uL) 0.26 Eos # (Auto) (0.0 - 0.2 x10 3/uL) 0.00 Baso # (Auto) (0.0 - 0.2 x10 3/uL) 0.00 Abs Immat Gran (auto) (0.00 - 0.03 x10 3/uL) 0. 02 Add Manual Diff NO Immature Gran % (0.0 - 2.0 %) 0.4 Nucleated RBC % (0 - 0 %) 0.0 Nucleated RBCs # (Man) (0.0 - 0.1 x10 3/uL) 0.0 0 Diagnosis, Assessment Plan Problem List/A P: 1. COVID 2. Hyperkalemia 3. Hypoxia 4. Elevated troponin I level 5. HTN (hypertension) 6. Diabetes 7. Metabolic encephalopathy Free Text DxA P Notes Free text DxA P notes: 66 y/o with tobacco abuse, ESRD, HTN, DM, heart disease who presents with AMS and COVID+ with hypoxia. COVID 19 pneumonia * pulmonary/ID * on DVT prophylaxis * Remdesivir day 5 out of 5 today around 11 pm; on Decadron started 11/04 for 10 days * pt sister states pt IS VACCINATED with j/j vac cine x2. Hyperkalemia -resolved * HD, nephrology following Hypoxia -currently on room air * abnormal CXR * pulmonary following, history of tobacco abuse Elevated troponin I level * echo pending; cards following HTN (hypertension) * BP uncontrolled added lisinopril 10mg po daily; monitor bp clos tricia Diabetes -blood glucose controlled * Continue SSI. Metabolic encephalopathy * CT head/PT/OT eval. probably multifactorial fr om all above. Pt sister was concerned about a UTI. (pt makes urine). Follow- up UA and culture. Nausea and vomiting * CT of the abdomen pelvis r eviewed, symptoms improved, advance to cardiac diet * Gastroenterology following, supportive care wi th antiemetics as needed End-stage renal disease * HD TTS per nephrology DVT prophylaxis: Heparin subcutaneous Labs stable possible d/c in am Quality: Gen Med Crit Care VTE Prophylaxis VTE prophylaxis initiated: yes Current Medications Current medication review: I attest that the foregoing medication list in t he medical record is true, accurate, and complete to the best of my knowled ge. Advanced Care Plan 65 or Older Discussed with: surrogate [email or web address]. maker Discussion included: living will Electronically Signed by Arlen Gamble MD on 0 11/09/21 at 1110 RPT #:[id number] END OF REPORT 2021-11-08 18:05:00-00:00 [facility] ([facility] Nephrology Progress Note REPORT#:[id number] REPORT STATUS: Signed DATE:11/08/21 TIME: 1804 PATIENT: VALENTINE MCNALLY UNIT #: [id number] ROOM/BED: C136-1 : 53 AGE: 66 SEX: F ATTEND: Ivan Freitas MD ADM AUTHOR: Mason Barnes * ALL edits or amendments must be made on the [facility] document * Subjective Comments: Events noted. Seen on dialysis. Tolerating proce dure. Objective General VS/I O: Vital Signs: Date Time Temp Pulse Resp B/P B/P Pulse O2 O2 F low FiO2 Mean Ox Delivery Rate 11/08 1647 98.1 68 17 188/76 113.5 94 Room air 11/08 1313 98.1 61 20 162/82 95 Room air 11/08 1201 97.9 63 17 165/69 100.9 91 Room air 11/08 1155 93 Room air 11/08 0801 98.2 62 17 172/73 106.1 96 Nasal cannula 11/08 0800 Nasal 2 cannula 11/08 0428 98.4 60 16 164/70 100.8 95 Nasal 2 cannula 11/07 2022 98.2 64 20 139/66 90.2 93 Room air 11/07 2000 Nasal 3 cannula 24 hour I O ending at 0700: 11/08 0700 11/07 1900 Intake Total 120 Output Total Balance 120 Intake, Oral 120 PATIENT WEIGHT: Weight (lb): Weight (oz): Weight (kg): 101.500 Medications Active Meds + DC'd Last 24 Hrs Sodium Chloride (SODIUM CHLORIDE 0.9%) 50 ML Q24 H IV Remdesivir (REMDESIVIR 100MG LYOPHYLIZED) 100 MG Q24H IV Sodium Chloride (SODIUM CHLORIDE 0.9% 100 ML) 1 00 ML Amlodipine Besylate (NORVASC) 10 MG DAILY PO Famotidine (PEPCID) 20 MG Q24H IV Simvastatin (SIMVASTATIN) 10 MG BEDTIME PO Calcium Acetate (CALCIUM ACETATE) 1,334 MG C MIGUEL LS PO Hydralazine HCl (APRESOLINE) 10 MG Q4H PRN PRN P O Aspirin (ASPIRIN) 81 MG DAILY PO Furosemide (LASIX) 40 MG DAILY PO Isosorbide Mononitrate (Imdur 30 mg) 60 MG DAILY PO Carvedilol (COREG) 25 MG BID MEALS PO Insulin Human Lispro (HUMALOG) 0 AC HS SUBQ Acetaminophen (TYLENOL) 650 MG Q4H PRN PRN PO Dexamethasone (DECADRON) 6 MG DAILY PO Dextrose/Water (DEXTROSE 50% W SYRINGE) 25 ML DIR PRN IV (CKD) Dextrose/Water (DEXTROSE 50% W SYRINGE) 50 ML DIR PRN IV (CKD) Glucagon (GLUCAGON) 1 MG ASDIR PRN IM Heparin Sodium (HEPARIN 5000 UNITS/ML) 5,000 UNI T Q8H SUBQ Ondansetron HCl (ZOFRAN) 4 MG Q4H PRN PRN IV Albumin Human (ALBUMINAR-25%) 12.5 GM ASDIR PRN IV Lidocaine HCl (LIDOCAINE HCL/PF) 0.5 ML ASDIR ID N I-DERMAL (CKD) Mannitol (MANNITOL 25% 12.5GM/50ML) 12.5 GM ASDI R PRN IV Sodium Chloride (SODIUM CHLORIDE 0.9%) 2,000 ML ASDIR PRN IV Sodium Chloride (SODIUM CHLORIDE) 10 ML ASDIR ID N IV Sodium Chloride (SODIUM CHLORIDE 0.9%) 250 ML DIR PRN IV Physical Exam General appearance: alert, awake Head/eyes: atraumatic, normocephalic, PERRLA ENT: moist mucous membranes, normal nose Neck: no JVD, no lymphadenopathy Cardiovascular: normal heart sounds, regular rat e and rhythm, no rub Respiratory: decreased breath sounds Abdomen: non-tender, normal bowel sounds, soft, no rebound Genitourinary: no bladder distention, no flank p ain, no urinary catheter Extremities: no edema, no gangrene Neuro/LIVE HANGER: alert, oriented X 3, CN II-XII intact , normal speech Results Findings/Data: Laboratory Tests 11/08 11/08 11/08 11/08 11/07 1643 1200 0759 0430 2018 Chemistry Sodium (134 - 147 mEq/L) 137 Potassium (3.4 - 5.0 mEq/L) 4.6 Chloride (100 - 108 mEq/L) 97 L Carbon Dioxide (21 - 33 mEq/l) 27 Anion Gap (0 - 20) 17 BUN (7 - 18 mg/dL) 48 H Creatinine (0.6 - 1.3 mg/dL) 6.9 H Glomerular Filtr Rate (80 - 90) 7.2 L Glucose (70 - 110 mg/dL) 259 H POC Glucose (70 - 110 MG/DL) 196 H 281 H 233 H 312 H Calcium (8.0 - 10.5 mg/dL) 7.6 L Total Bilirubin (0.0 - 1.0 mg/dL) 0.60 Direct Bilirubin (0.0 - 0.30 MG/DL) 0.20 Indirect Bilirubin (MG/DL) 0.40 AST (15 - 37 IUnit/L) 26 ALT (30 - 65 IUnit/L) 13 L Total Alk Phosphatase (20 - 125 92 IUnit/L) Total Protein (6.4 - 8.2 g/dL) 6.5 Albumin (3.4 - 5.0 g/dL) 3.00 L Laboratory Tests 11/08 0430 Hematology WBC (4.5 - 11.0 x10 3/uL) 5.6 RBC (3.54 - 5.02 x10 6/uL) 3.97 Hgb (11.0 - 15.0 g/dL) 11.5 Hct (33.0 - 45.0 %) 37.8 MCV (81.0 - 99.0 fL) 95.2 MCH (27.0 - 33.0 pg) 29.0 MCHC (33.0 - 37.0 g/dL) 30.4 L RDW (11.5 - 14.5 %) 14.6 H Plt Count (150 - 400 x10 3/uL) 132 L MPV (7.0 - 9.0 fL) 11.2 H Neut % (Auto) (56.0 - 77.0 %) 88.3 H Lymph % (Auto) (14.0 - 32.0 %) 7.0 L [place] % (Auto) (4.8 - 9.0 %) 4.3 L Eos % (Auto) (0.3 - 3.7 %) 0.0 L Baso % (Auto) (0.0 - 2.0 %) 0.0 Neut # (Auto) (2.0 - 7.6 x10 3/uL) 4.92 Lymph # (Auto) (1.0 - 3.8 x10 3/uL) 0.39 L [place] # (Auto) (0.1 - 0.8 x10 3/uL) 0.24 Eos # (Auto) (0.0 - 0.2 x10 3/uL) 0.00 Baso # (Auto) (0.0 - 0.2 x10 3/uL) 0.00 Abs Immat Gran (auto) (0.00 - 0.03 x10 3/uL) 0. 02 Add Manual Diff NO Immature Gran % (0.0 - 2.0 %) 0.4 Nucleated RBC % (0 - 0 %) 0.0 Nucleated RBCs # (Man) (0.0 - 0.1 x10 3/uL) 0.0 0 Diagnosis, Assessment Plan Free Text A P: 1. ESRD continue with TTS schedule, seen on dial ysis 2. Electrolytes within normal range today 3. Nausea vomiting symptoms improving. CT abdome n and pelvis noted 4. Anemia of CKD start ÁNGEL if hemoglobin remains less than 10 5. COVID-19 pneumonia ID consulted, started on r emdesivir and steroid 6. Hypertension remains elevated, likely seconda ry to steroid. Started on amlodipine. Follow after dialysis 7. DM2 per primary team Hemodialysis for 3 hours on a 2K bath with ultra filtration as tolerated at 1807 RPT #:[id number] END OF REPORT 2021-11-08 14:12:00-00:00 [facility] Hospitalist Progress Note REPORT#:[id number] REPORT STATUS: Signed DATE:11/08/21 TIME: 1411 PATIENT: VALENTINE MCNALLY UNIT #: [id number] ROOM/BED: [place] [address] : 53 AGE: 66 SEX: F ATTEND: Ivan Freitas MD ADM AUTHOR: Arlen Gamble MD * ALL edits or amendments must be made on the [employer]/computer document * Subjective Chief complaint: Patient currently on room air. She says that she does not need oxygen. She is getting hemodialysis at this time. No other acut e complaints. Objective General VS/I O: Vital Signs: Date Time Temp Pulse Resp B/P B/P Pulse O2 O2 F low FiO2 Mean Ox Delivery Rate 11/08 1313 98.1 61 20 162/82 95 Room air 11/08 1201 97.9 63 17 165/69 100.9 91 Room air 11/08 1155 93 Room air 11/08 0801 98.2 62 17 172/73 106.1 96 Nasal cannula 11/08 0800 Nasal 2 cannula 11/08 0428 98.4 60 16 164/70 100.8 95 Nasal 2 cannula 11/07 2022 98.2 64 20 139/66 90.2 93 Room air 11/07 2000 Nasal 3 cannula 11/07 1753 98.1 66 17 163/62 95.7 93 Room air 24 hour I O ending at 0700: 11/08 0700 11/07 1900 Intake Total 120 Output Total Balance 120 Intake, Oral 120 PATIENT WEIGHT: Weight (lb): Weight (oz): Weight (kg): 101.500 Medications: Active Meds + DC'd Last 24 Hrs Sodium Chloride (SODIUM CHLORIDE 0.9%) 50 ML Q24 H IV Remdesivir (REMDESIVIR 100MG LYOPHYLIZED) 100 MG Q24H IV Sodium Chloride (SODIUM CHLORIDE 0.9% 100 ML) 1 00 ML Amlodipine Besylate (NORVASC) 10 MG DAILY PO Famotidine (PEPCID) 20 MG Q24H IV Simvastatin (SIMVASTATIN) 10 MG BEDTIME PO Calcium Acetate (CALCIUM ACETATE) 1,334 MG C MIGUEL LS PO Hydralazine HCl (APRESOLINE) 10 MG Q4H PRN PRN P O Aspirin (ASPIRIN) 81 MG DAILY PO Furosemide (LASIX) 40 MG DAILY PO Isosorbide Mononitrate (Imdur 30 mg) 60 MG DAILY PO Carvedilol (COREG) 25 MG BID MEALS PO Insulin Human Lispro (HUMALOG) 0 AC HS SUBQ Acetaminophen (TYLENOL) 650 MG Q4H PRN PRN PO Dexamethasone (DECADRON) 6 MG DAILY PO Dextrose/Water (DEXTROSE 50% W SYRINGE) 25 ML DIR PRN IV (CKD) Dextrose/Water (DEXTROSE 50% W SYRINGE) 50 ML DIR PRN IV (CKD) Glucagon (GLUCAGON) 1 MG ASDIR PRN IM Heparin Sodium (HEPARIN 5000 UNITS/ML) 5,000 UNI T Q8H SUBQ Ondansetron HCl (ZOFRAN) 4 MG Q4H PRN PRN IV Albumin Human (ALBUMINAR-25%) 12.5 GM ASDIR PRN IV Lidocaine HCl (LIDOCAINE HCL/PF) 0.5 ML ASDIR ID N I-DERMAL (CKD) Mannitol (MANNITOL 25% 12.5GM/50ML) 12.5 GM ASDI R PRN IV Sodium Chloride (SODIUM CHLORIDE 0.9%) 2,000 ML ASDIR PRN IV Sodium Chloride (SODIUM CHLORIDE) 10 ML ASDIR ID N IV Sodium Chloride (SODIUM CHLORIDE 0.9%) 250 ML DIR PRN IV Physical Exam General appearance: no acute distress Head/Eyes: atraumatic, normocephalic ENT: normal ear left, normal ear right, normal n ose Neck: full range of motion, no JVD Cardiovascular: normal heart sounds, regular rat e rhythm Respiratory: clear to auscultation, symmetric ex pansion, no distress Abdomen: non-tender, normal bowel sounds, soft, no distention Extremities: no clubbing, no cyanosis, no edema Neuro/LIVE HANGER: non focal, alert and oriented to hers elf, doesn't know the name of the hospital Skin: dry, no rash Results Findings/Data: Laboratory Tests 11/08 11/08 11/08 11/07 11/07 1200 0759 0 2017 175 Chemistry Sodium (134 - 147 mEq/L) 137 Potassium (3.4 - 5.0 mEq/L) 4.6 Chloride (100 - 108 mEq/L) 97 L Carbon Dioxide (21 - 33 mEq/l) 27 Anion Gap (0 - 20) 17 BUN (7 - 18 mg/dL) 48 H Creatinine (0.6 - 1.3 mg/dL) 6.9 H Glomerular Filtr Rate (80 - 90) 7.2 L Glucose (70 - 110 mg/dL) 259 H POC Glucose (70 - 110 MG/DL) 281 H 233 H 312 H 237 H Calcium (8.0 - 10.5 mg/dL) 7.6 L Total Bilirubin (0.0 - 1.0 mg/dL) 0.60 Direct Bilirubin (0.0 - 0.30 MG/DL) 0.20 Indirect Bilirubin (MG/DL) 0.40 AST (15 - 37 IUnit/L) 26 ALT (30 - 65 IUnit/L) 13 L Total Alk Phosphatase (20 - 125 IUnit/L) 92 Total Protein (6.4 - 8.2 g/dL) 6.5 Albumin (3.4 - 5.0 g/dL) 3.00 L Laboratory Tests 11/08 0430 Hematology WBC (4.5 - 11.0 x10 3/uL) 5.6 RBC (3.54 - 5.02 x10 6/uL) 3.97 Hgb (11.0 - 15.0 g/dL) 11.5 Hct (33.0 - 45.0 %) 37.8 MCV (81.0 - 99.0 fL) 95.2 MCH (27.0 - 33.0 pg) 29.0 MCHC (33.0 - 37.0 g/dL) 30.4 L RDW (11.5 - 14.5 %) 14.6 H Plt Count (150 - 400 x10 3/uL) 132 L MPV (7.0 - 9.0 fL) 11.2 H Neut % (Auto) (56.0 - 77.0 %) 88.3 H Lymph % (Auto) (14.0 - 32.0 %) 7.0 L [place] % (Auto) (4.8 - 9.0 %) 4.3 L Eos % (Auto) (0.3 - 3.7 %) 0.0 L Baso % (Auto) (0.0 - 2.0 %) 0.0 Neut # (Auto) (2.0 - 7.6 x10 3/uL) 4.92 Lymph # (Auto) (1.0 - 3.8 x10 3/uL) 0.39 L [place] # (Auto) (0.1 - 0.8 x10 3/uL) 0.24 Eos # (Auto) (0.0 - 0.2 x10 3/uL) 0.00 Baso # (Auto) (0.0 - 0.2 x10 3/uL) 0.00 Abs Immat Gran (auto) (0.00 - 0.03 x10 3/uL) 0. 02 Add Manual Diff NO Immature Gran % (0.0 - 2.0 %) 0.4 Nucleated RBC % (0 - 0 %) 0.0 Nucleated RBCs # (Man) (0.0 - 0.1 x10 3/uL) 0.0 0 Diagnosis, Assessment Plan Problem List/A P: 1. COVID 2. Hyperkalemia 3. Hypoxia 4. Elevated troponin I level 5. HTN (hypertension) 6. Diabetes 7. Metabolic encephalopathy Free Text DxA P Notes Free text DxA P notes: 66 y/o with tobacco abuse, ESRD, HTN, DM, heart disease who presents with AMS and COVID+ with hypoxia. COVID 19 pneumonia * pulmonary/ID * on DVT prophylaxis * Remdesivir day 4 out of 5; on Decadron * pt sister states pt IS VACCINATED with j/j vac cine x2. Hyperkalemia -resolved * HD, nephrology following Hypoxia -currently on room air * abnormal CXR * pulmonary following, history of tobacco abuse Elevated troponin I level * echo pending; cards following HTN (hypertension) * BP controlled Diabetes -blood glucose controlled * Continue SSI. Metabolic encephalopathy * CT head/PT/OT eval. probably multifactorial fr om all above. Pt sister was concerned about a UTI. (pt makes urine). Follow- up UA and culture. Nausea and vomiting * CT of the abdomen pelvis r eviewed, symptoms improved, advance to cardiac diet * Gastroenterology following, supportive care wi th antiemetics as needed End-stage renal disease * HD TTS per nephrology DVT prophylaxis: Heparin subcutaneous Labs stable Quality: Gen Med Crit Care VTE Prophylaxis VTE prophylaxis initiated: yes Current Medications Current medication review: I attest that the foregoing medication list in t he medical record is true, accurate, and complete to the best of my knowled ge. Advanced Care Plan 65 or Older Discussed with: surrogate decis. maker Discussion included: living will Electronically Signed by Arlen Gamble MD on 0 11/08/21 at 1415 RPT #:[id number] END OF REPORT 2021-11-07 15:34:00-00:00 [facility]) Hospitalist Progress Note REPORT#:[id number] REPORT STATUS: Signed DATE:11/07/21 TIME: 1533 PATIENT: VALENTINE MNCALLY UNIT #: [id number] ROOM/BED: [place] [id number] : 53 AGE: 66 SEX: F ATTEND: Ivan Freitas MD ADM AUTHOR: Heber Rainey DO * ALL edits or amendments must be made on the [facility]/computer document * Subjective Comments: Patient seen and examined, reports she is feelin g better but still on 3 L via nasal cannula. Would like her diet advanced. Dis cussed case with RN. Patient denies any new complaints Objective General VS/I O: Vital Signs: Date Time Temp Pulse Resp B/P B/P Pulse O2 O2 F low FiO2 Mean Ox Delivery Rate 11/07 1048 98.4 67 17 138/72 93.9 92 Room air 11/07 0832 66 166/74 0.0 94 11/07 0800 3 11/07 0444 98.2 68 17 172/50 90.8 92 Room air 9 2 11/06 2308 98.4 64 17 161/65 97.2 91 Room air 9 1 11/06 2000 Nasal 3 cannula 11/06 1929 98.1 69 17 185/68 106.7 94 Room air 94 11/06 1852 98.0 62 19 155/68 94 Nasal 3 cannula 11/06 1546 98.2 59 12 150/71 97.6 94 Nasal 3 cannula 24 hour I O ending at 0700: 11/07 0700 11/06 1900 Intake Total Output Total 3200 Balance -3200 Output, 3200 Hemodialysis PATIENT WEIGHT: Weight (lb): Weight (oz): Weight (kg): 101.500 Medications: Active Meds + DC'd Last 24 Hrs Sodium Chloride (SODIUM CHLORIDE 0.9%) 50 ML Q24 H IV Remdesivir (REMDESIVIR 100MG LYOPHYLIZED) 100 MG Q24H IV Sodium Chloride (SODIUM CHLORIDE 0.9% 100 ML) 1 00 ML Amlodipine Besylate (NORVASC) 10 MG DAILY PO Famotidine (PEPCID) 20 MG Q24H IV Simvastatin (SIMVASTATIN) 10 MG BEDTIME PO Calcium Acetate (CALCIUM ACETATE) 1,334 MG C MIGUEL LS PO Hydralazine HCl (APRESOLINE) 10 MG Q4H PRN PRN P O Aspirin (ASPIRIN) 81 MG DAILY PO Furosemide (LASIX) 40 MG DAILY PO Isosorbide Mononitrate (Imdur 30 mg) 60 MG DAILY PO Carvedilol (COREG) 25 MG BID MEALS PO Insulin Human Lispro (HUMALOG) 0 AC HS SUBQ Acetaminophen (TYLENOL) 650 MG Q4H PRN PRN PO Dexamethasone (DECADRON) 6 MG DAILY PO Dextrose/Water (DEXTROSE 50% W SYRINGE) 25 ML DIR PRN IV (CKD) Dextrose/Water (DEXTROSE 50% W SYRINGE) 50 ML DIR PRN IV (CKD) Glucagon (GLUCAGON) 1 MG ASDIR PRN IM Heparin Sodium (HEPARIN 5000 UNITS/ML) 5,000 UNI T Q8H SUBQ Ondansetron HCl (ZOFRAN) 4 MG Q4H PRN PRN IV Albumin Human (ALBUMINAR-25%) 12.5 GM ASDIR PRN IV Lidocaine HCl (LIDOCAINE HCL/PF) 0.5 ML ASDIR ID N I-DERMAL (CKD) Mannitol (MANNITOL 25% 12.5GM/50ML) 12.5 GM ASDI R PRN IV Sodium Chloride (SODIUM CHLORIDE 0.9%) 2,000 ML ASDIR PRN IV Sodium Chloride (SODIUM CHLORIDE) 10 ML ASDIR ID N IV Sodium Chloride (SODIUM CHLORIDE 0.9%) 250 ML DIR PRN IV Physical Exam General appearance: alert, awake, oriented Head/Eyes: atraumatic, normocephalic ENT: normal ear left, normal ear right, normal n ose Neck: full range of motion, no JVD Cardiovascular: normal heart sounds, regular rat e rhythm Respiratory: clear to auscultation, symmetric ex pansion, no distress Abdomen: non-tender, normal bowel sounds, soft, no distention Extremities: no clubbing, no cyanosis, no edema Neuro/LIVE HANGER: non focal, alert and oriented to hers elf, doesn't know the name of the hospital Skin: dry, no rash Results Findings/Data: Laboratory Tests 11/07 11/07 11/07 11/06 11/06 1045 0823 0455 1921 1545 Chemistry Sodium (134 - 147 mEq/L) 138 Potassium (3.4 - 5.0 mEq/L) 4.2 Chloride (100 - 108 mEq/L) 102 Carbon Dioxide (21 - 33 mEq/l) 25 Anion Gap (0 - 20) 15 BUN (7 - 18 mg/dL) 20 H Creatinine (0.6 - 1.3 mg/dL) 5.5 H Glomerular Filtr Rate (80 - 90) 9.3 L Glucose (70 - 110 mg/dL) 209 H POC Glucose (70 - 110 MG/DL) 243 H 198 H 303 H 334 H Calcium (8.0 - 10.5 mg/dL) 8.7 Total Bilirubin (0.0 - 1.0 mg/dL) 0.80 Direct Bilirubin (0.0 - 0.30 MG/DL) 0.30 Indirect Bilirubin (MG/DL) 0.50 AST (15 - 37 IUnit/L) 32 ALT (30 - 65 IUnit/L) 16 L Total Alk Phosphatase (20 - 125 93 IUnit/L) Total Protein (6.4 - 8.2 g/dL) 7.0 Albumin (3.4 - 5.0 g/dL) 3.20 L Laboratory Tests 11/07 0455 Hematology WBC (4.5 - 11.0 x10 3/uL) 4.9 RBC (3.54 - 5.02 x10 6/uL) 3.91 Hgb (11.0 - 15.0 g/dL) 11.7 Hct (33.0 - 45.0 %) 37.8 MCV (81.0 - 99.0 fL) 96.7 MCH (27.0 - 33.0 pg) 29.9 MCHC (33.0 - 37.0 g/dL) 31.0 L RDW (11.5 - 14.5 %) 15.5 H Plt Count (150 - 400 x10 3/uL) 139 L MPV (7.0 - 9.0 fL) 11.4 H Neut % (Auto) (56.0 - 77.0 %) 87.4 H Lymph % (Auto) (14.0 - 32.0 %) 6.8 L [place] % (Auto) (4.8 - 9.0 %) 5.6 Eos % (Auto) (0.3 - 3.7 %) 0.0 L Baso % (Auto) (0.0 - 2.0 %) 0.0 Neut # (Auto) (2.0 - 7.6 x10 3/uL) 4.24 Lymph # (Auto) (1.0 - 3.8 x10 3/uL) 0.33 L [place] # (Auto) (0.1 - 0.8 x10 3/uL) 0.27 Eos # (Auto) (0.0 - 0.2 x10 3/uL) 0.00 Baso # (Auto) (0.0 - 0.2 x10 3/uL) 0.00 Abs Immat Gran (auto) (0.00 - 0.03 x10 3/uL) 0. 01 Add Manual Diff NO Immature Gran % (0.0 - 2.0 %) 0.2 Nucleated RBC % (0 - 0 %) 0.0 Nucleated RBCs # (Man) (0.0 - 0.1 x10 3/uL) 0.0 0 Diagnosis, Assessment Plan Problem List/A P: 1. COVID 2. Hyperkalemia 3. Hypoxia 4. Elevated troponin I level 5. HTN (hypertension) 6. Diabetes 7. Metabolic encephalopathy Free Text DxA P Notes Free text DxA P notes: 66 y/o with tobacco abuse, ESRD, HTN, DM, heart disease who presents with AMS and COVID+ with hypoxia. COVID 19 pneumonia * pulmonary/ID * on DVT prophylaxis * Remdesivir started, continue Decadron * pt sister states pt IS VACCINATED with j/j vac cine x2. Hyperkalemia * HD, nephrology following Hypoxia * abnormal CXR * pulmonary following, history of tobacco abuse Elevated troponin I level * echo/cards following HTN (hypertension) * restart BP meds, patient l ost IV access and as needed antihypertensive started * BP also likely improved post hemodialysis Diabetes * Continue SSI. Metabolic encephalopathy * CT head/PT/OT eval. probably multifactorial fr om all above. Pt sister was concerned about a UTI. (pt makes urine). Follow- up UA and culture. Nausea and vomiting * CT of the abdomen pelvis r eviewed, symptoms improved, advance to cardiac diet * Gastroenterology following, supportive care wi th antiemetics as needed End-stage renal disease * HD TTS per nephrology DVT prophylaxis: Heparin subcutaneous Quality: Gen Med Crit Care VTE Prophylaxis VTE prophylaxis initiated: yes Current Medications Current medication review: I attest that the foregoing medication list in t he medical record is true, accurate, and complete to the best of my knowled ge. Advanced Care Plan 65 or Older Discussed with: surrogate fela. maker Discussion included: living will Electronically Signed by Heber Rainey DO on 10/21 05/11 at 1539 RPT #:[id number] END OF REPORT 2021-11-07 13:11:00-00:00 [facility] ([facility]) Pulmonology Progress Note REPORT#:[id number] REPORT STATUS: Signed DATE:11/07/21 TIME: 1311 PATIENT: VALENTINE MCNALLY UNIT #: [id number] ROOM[address]: [address] : [address] AGE: 66 SEX: F ATTEND: Ivan Freitas MD ADM AUTHOR: Shanika Vasquez MD * ALL edits or amendments must be made on the [employer]/computer document * Subjective Chief complaint: No acute events overnight Reports feeling better She is vaccinated with the Tobi Tobi vacci ne Review of Systems ROS Constitutional: Denies: chills, fatigue. Respiratory: Denies: PAN (dyspnea on exertion), hemoptysis, p neumonia, productive cough ( sputum), SOB, wheezing. Cardiovascular: Denies: chest pain, edema, orthopnea. GI: Denies: abdominal pain, nausea, vomiting. Heme: Denies: bleeding. Neuro: Denies: headache. Objective General VS/I O: Last Documented: Result Date Time Pulse Ox 92 11/07 1048 B/P 138/72 11/07 1048 B/P Mean 93.9 11/07 1048 O2 Delivery Room air 11/07 1048 Temp 36.9 11/07 1048 Pulse 67 11/07 1048 Resp 17 11/07 1048 O2 Flow Rate 3 11/07 0800 FiO2 92 11/07 0444 24 hour I O ending at 0700: 11/07 0700 11/06 1900 Intake Total Output Total 3200 Balance -3200 Output, 3200 Hemodialysis PATIENT WEIGHT: Weight (lb): Weight (oz): Weight (kg): 101.500 Physical Exam General appearance: alert, awake, oriented, no a cute distress, pleasant, conversational, mental status normal, no respira tory distress Head/eyes: atraumatic, normocephalic, PERRL Neck: full range of motion, non-tender Cardiovascular: normal heart sounds, normal S1/S 2, regular rate rhythm, no murmur, no rub, no gallop Respiratory/chest: on oxygen, aerating well, hany ar to auscultation, symmetric expansion, no distress, no tenderness Abdomen: soft, non-tender, no CVA tenderness, no distention Extremities: no cyanosis, no edema Musculoskeletal: no muscle spasm Neuro/LIVE HANGER: alert Results Findings/Data: Laboratory Tests 11/07/21 0455: [Embedded Image Not Available] Laboratory Tests 11/07 11/07 11/07 11/06 11/06 1045 0823 0455 1921 1545 Chemistry Sodium (134 - 147 mEq/L) 138 Potassium (3.4 - 5.0 mEq/L) 4.2 Chloride (100 - 108 mEq/L) 102 Carbon Dioxide (21 - 33 mEq/l) 25 Anion Gap (0 - 20) 15 BUN (7 - 18 mg/dL) 20 H Creatinine (0.6 - 1.3 mg/dL) 5.5 H Glomerular Filtr Rate (80 - 90) 9.3 L Glucose (70 - 110 mg/dL) 209 H POC Glucose (70 - 110 MG/DL) 243 H 198 H 303 H 334 H Calcium (8.0 - 10.5 mg/dL) 8.7 Total Bilirubin (0.0 - 1.0 mg/dL) 0.80 Direct Bilirubin (0.0 - 0.30 MG/DL) 0.30 Indirect Bilirubin (MG/DL) 0.50 AST (15 - 37 IUnit/L) 32 ALT (30 - 65 IUnit/L) 16 L Total Alk Phosphatase (20 - 125 IUnit/L) 93 Total Protein (6.4 - 8.2 g/dL) 7.0 Albumin (3.4 - 5.0 g/dL) 3.20 L Laboratory Tests 11/07 454 Hematology WBC (4.5 - 11.0 x10 3/uL) 4.9 RBC (3.54 - 5.02 x10 6/uL) 3.91 Hgb (11.0 - 15.0 g/dL) 11.7 Hct (33.0 - 45.0 %) 37.8 MCV (81.0 - 99.0 fL) 96.7 MCH (27.0 - 33.0 pg) 29.9 MCHC (33.0 - 37.0 g/dL) 31.0 L RDW (11.5 - 14.5 %) 15.5 H Plt Count (150 - 400 x10 3/uL) 139 L MPV (7.0 - 9.0 fL) 11.4 H Neut % (Auto) (56.0 - 77.0 %) 87.4 H Lymph % (Auto) (14.0 - 32.0 %) 6.8 L [place] % (Auto) (4.8 - 9.0 %) 5.6 Eos % (Auto) (0.3 - 3.7 %) 0.0 L Baso % (Auto) (0.0 - 2.0 %) 0.0 Neut # (Auto) (2.0 - 7.6 x10 3/uL) 4.24 Lymph # (Auto) (1.0 - 3.8 x10 3/uL) 0.33 L [place] # (Auto) (0.1 - 0.8 x10 3/uL) 0.27 Eos # (Auto) (0.0 - 0.2 x10 3/uL) 0.00 Baso # (Auto) (0.0 - 0.2 x10 3/uL) 0.00 Abs Immat Gran (auto) (0.00 - 0.03 x10 3/uL) 0. 01 Add Manual Diff NO Immature Gran % (0.0 - 2.0 %) 0.2 Nucleated RBC % (0 - 0 %) 0.0 Nucleated RBCs # (Man) (0.0 - 0.1 x10 3/uL) 0.0 0 Diagnosis, Assessment Plan Free Text A P: Impressions: Acute hypoxemic respiratory failur COVID 19 infecction ESRD on HD DM CAD Recommendations: Improved pulmonary status now on room air satura ting well CXR reviewed extensive bilateral pulmonary opaci ties with superimposed edema Lower cuts of the lungs reviewed and CT abdomen shows patchy opacities consistent with COVID-19 infection Status post hemodialysis with improvement in oxy genation Maintain SPO2 more than 92% C/w decadron for 10 days Continue remdesivir for 5 days Continue with incentive spirometer C/w bronchodilators ESRD on HD per renal Assess home oxygen needs prior to discharge Outpatient pulmonary follow-up and repeat chest x-ray in 6 weeks DVT ppx Full Code Electronically Signed by Shanika Vasquez MD 11/07/21 at 1313 RPT #:[id number] END OF REPORT 2021-11-07 08:54:00-00:00 [facility] REPORT#:[id number] REPORT STATUS: Signed DATE:11/07/21 TIME: 08 PATIENT: VALENTINE MCNALLY UNIT #: [id number] ROOM/BED: [place] [address] : 53 AGE: 66 SEX: F ATTEND: Ivan Freitas MD ADM AUTHOR: Heber Dunbar PHD * ALL edits or amendments must be made on the [employer]/eshtery document * Subjective Comments: Nursing reports patient is eating small amounts of full liquid diet but is requesting regular food (eg. pork chops/hamburge rs); no abdominal pain Objective General VS/I O: Last Documented: Result Date Time Pulse Ox 94 11/07 08 B/P 166/74 11/07 08 B/P Mean 0.0 11/07 831 Pulse 66 11/07 0832 FiO2 92 11/07 0444 O2 Delivery Room air 11/07 443 Temp 36.8 11/07 0444 Resp 17 11/07 0444 O2 Flow Rate 3 11/06 1999 24 hour I O ending at 0700: 11/07 0700 11/06 1900 Intake Total Output Total 3200 Balance -3200 Output, 3200 Hemodialysis PATIENT WEIGHT: Weight (lb): Weight (oz): Weight (kg): 101.500 Physical Exam General appearance: alert, awake, oriented, no a cute distress Abdomen: non-tender, normal bowel sounds, soft, no distention Diagnosis, Assessment Plan Free Text A P: 1. Nausea/vomiting - improved. 2. COVID 19 infection. Plan: 1. Advance diet as tolerated to bland/cardiac di et. 2. Anti-emetics as needed. 3. If tolerating diet, the patient can be discha rged home from a GI perspective. Electronically Signed by Heber Dunbar PHD o n 11/07/21 at 0856 RPT #:[id number] END OF REPORT 2021-11-07 08:32:00-00:00 [facility] ([facility] Nephrology Progress Note REPORT#:[id number] REPORT STATUS: Signed DATE:11/07/21 TIME: 08 PATIENT: VALENTINE MCNALLY UNIT #: [id number] [address] : [address] AGE: 66 SEX: F ATTEND: Ivan Freitas MD ADM AUTHOR: Marie Salas MD * ALL edits or amendments must be made on the el [employer]/computer document * Subjective Comments: Doing better Objective General VS/I O: Vital Signs: Date Time Temp Pulse Resp B/P B/P Pulse O2 O2 F low FiO2 Mean Ox Delivery Rate 11/07 0832 66 166/74 0.0 94 11/07 0444 98.2 68 17 172/50 90.8 92 Room air 9 2 11/06 2308 98.4 64 17 161/65 97.2 91 Room air 9 1 11/06 2000 Nasal 3 cannula 11/06 1929 98.1 69 17 185/68 106.7 94 Room air 94 11/06 1852 98.0 62 19 155/68 94 Nasal 3 cannula 11/06 1546 98.2 59 12 150/71 97.6 94 Nasal 3 cannula 11/06 1519 98.2 61 18 146/65 94 Nasal 3 cannula 11/06 1201 98.6 64 12 134/55 81.4 89 Room air 24 hour I O ending at 0700: 11/07 0700 11/06 1900 Intake Total Output Total 3200 Balance -3200 Output, 3200 Hemodialysis PATIENT WEIGHT: Weight (lb): Weight (oz): Weight (kg): 101.500 Medications Active Meds + DC'd Last 24 Hrs Sodium Chloride (SODIUM CHLORIDE 0.9%) 50 ML Q24 H IV Remdesivir (REMDESIVIR 100MG LYOPHYLIZED) 100 MG Q24H IV Sodium Chloride (SODIUM CHLORIDE 0.9% 100 ML) 1 00 ML Amlodipine Besylate (NORVASC) 10 MG DAILY PO Famotidine (PEPCID) 20 MG Q24H IV Simvastatin (SIMVASTATIN) 10 MG BEDTIME PO Calcium Acetate (CALCIUM ACETATE) 1,334 MG C MIGUEL LS PO Hydralazine HCl (APRESOLINE) 10 MG Q4H PRN PRN P O Aspirin (ASPIRIN) 81 MG DAILY PO Furosemide (LASIX) 40 MG DAILY PO Isosorbide Mononitrate (Imdur 30 mg) 60 MG DAILY PO Carvedilol (COREG) 25 MG BID MEALS PO Insulin Human Lispro (HUMALOG) 0 AC HS SUBQ Acetaminophen (TYLENOL) 650 MG Q4H PRN PRN PO Dexamethasone (DECADRON) 6 MG DAILY PO Dextrose/Water (DEXTROSE 50% W SYRINGE) 25 ML DIR PRN IV (CKD) Dextrose/Water (DEXTROSE 50% W SYRINGE) 50 ML DIR PRN IV (CKD) Glucagon (GLUCAGON) 1 MG ASDIR PRN IM Heparin Sodium (HEPARIN 5000 UNITS/ML) 5,000 UNI T Q8H SUBQ Ondansetron HCl (ZOFRAN) 4 MG Q4H PRN PRN IV Albumin Human (ALBUMINAR-25%) 12.5 GM ASDIR PRN IV Lidocaine HCl (LIDOCAINE HCL/PF) 0.5 ML ASDIR ID N I-DERMAL (CKD) Mannitol (MANNITOL 25% 12.5GM/50ML) 12.5 GM ASDI R PRN IV Sodium Chloride (SODIUM CHLORIDE 0.9%) 2,000 ML ASDIR PRN IV Sodium Chloride (SODIUM CHLORIDE) 10 ML ASDIR ID N IV Sodium Chloride (SODIUM CHLORIDE 0.9%) 250 ML DIR PRN IV Physical Exam General appearance: alert, awake Head/eyes: atraumatic, normocephalic, PERRLA Neck: no JVD, no lymphadenopathy Cardiovascular: normal heart sounds, regular rat e and rhythm, no rub Respiratory: decreased breath sounds Abdomen: non-tender, normal bowel sounds, soft, no rebound Genitourinary: no bladder distention, no flank p ain, no urinary catheter Extremities: no edema, no gangrene Neuro/LIVE HANGER: alert, oriented X 3, CN II-XII intact , normal speech Results Findings/Data: Laboratory Tests 11/07 11/06 11/06 11/06 0455 1921 1545 1203 Chemistry Sodium (134 - 147 mEq/L) 138 Potassium (3.4 - 5.0 mEq/L) 4.2 Chloride (100 - 108 mEq/L) 102 Carbon Dioxide (21 - 33 mEq/l) 25 Anion Gap (0 - 20) 15 BUN (7 - 18 mg/dL) 20 H Creatinine (0.6 - 1.3 mg/dL) 5.5 H Glomerular Filtr Rate (80 - 90) 9.3 L Glucose (70 - 110 mg/dL) 209 H POC Glucose (70 - 110 MG/DL) 303 H 334 H 275 H Calcium (8.0 - 10.5 mg/dL) 8.7 Total Bilirubin (0.0 - 1.0 mg/dL) 0.80 Direct Bilirubin (0.0 - 0.30 MG/DL) 0.30 Indirect Bilirubin (MG/DL) 0.50 AST (15 - 37 IUnit/L) 32 ALT (30 - 65 IUnit/L) 16 L Total Alk Phosphatase (20 - 125 IUnit/L) 93 Total Protein (6.4 - 8.2 g/dL) 7.0 Albumin (3.4 - 5.0 g/dL) 3.20 L Laboratory Tests 11/07 0455 Hematology WBC (4.5 - 11.0 x10 3/uL) 4.9 RBC (3.54 - 5.02 x10 6/uL) 3.91 Hgb (11.0 - 15.0 g/dL) 11.7 Hct (33.0 - 45.0 %) 37.8 MCV (81.0 - 99.0 fL) 96.7 MCH (27.0 - 33.0 pg) 29.9 MCHC (33.0 - 37.0 g/dL) 31.0 L RDW (11.5 - 14.5 %) 15.5 H Plt Count (150 - 400 x10 3/uL) 139 L MPV (7.0 - 9.0 fL) 11.4 H Neut % (Auto) (56.0 - 77.0 %) 87.4 H Lymph % (Auto) (14.0 - 32.0 %) 6.8 L [place] % (Auto) (4.8 - 9.0 %) 5.6 Eos % (Auto) (0.3 - 3.7 %) 0.0 L Baso % (Auto) (0.0 - 2.0 %) 0.0 Neut # (Auto) (2.0 - 7.6 x10 3/uL) 4.24 Lymph # (Auto) (1.0 - 3.8 x10 3/uL) 0.33 L [place] # (Auto) (0.1 - 0.8 x10 3/uL) 0.27 Eos # (Auto) (0.0 - 0.2 x10 3/uL) 0.00 Baso # (Auto) (0.0 - 0.2 x10 3/uL) 0.00 Abs Immat Gran (auto) (0.00 - 0.03 x10 3/uL) 0. 01 Add Manual Diff NO Immature Gran % (0.0 - 2.0 %) 0.2 Nucleated RBC % (0 - 0 %) 0.0 Nucleated RBCs # (Man) (0.0 - 0.1 x10 3/uL) 0. 00 Diagnosis, Assessment Plan Free Text A P: 1. ESRD continue with TTS schedule, HD in a.m. w ith UF as blood pressure tolerates 2. Electrolytes within normal range today 3. Nausea vomiting symptoms improving. CT abdome n and pelvis noted 4. Anemia of CKD start ÁNGEL if hemoglobin remains less than 10 5. COVID-19 pneumonia ID consulted, started on r emdesivir and steroid 6. Hypertension remains elevated, likely seconda ry to steroid. Started on amlodipine 7. DM2 per primary team Electronically Signed by Marie Salas MD on at 1218 RPT #:[id number] END OF REPORT 2021-11-07 08:08:00-00:00 [facility] ([facility]) Infectious Dis. Progress Note REPORT#:[id number] REPORT STATUS: Signed DATE:11/07/21 TIME: 807 PATIENT: VALENTINE MCNALLY UNIT #: [id number] ROOM/BED: [place] [address] : 53 AGE: 66 SEX: F ATTEND: Ivan Freitas MD ADM AUTHOR: Odell Hebert MD * ALL edits or amendments must be made on the [employer]/computer document * Subjective Chief complaint: Shortness of breath Patient reports: Yes: feeling better. No: com plaints, abdominal pain, back pain, bowel movement, burning with urination, cough, diarrhea, fever, headache, nausea, pain, pain controlled, shortness of breath, vomiting, wheez ing. Review of Systems All systems rev neg: except as marked Objective General VS/I O: Last Documented: Result Date Time Pulse Ox 93 11/07 1752 B/P 163/62 11/07 1752 B/P Mean 95.7 11/07 1752 O2 Delivery Room air 11/07 1752 Temp 98.1 11/07 175 Pulse 66 11/07 175 Resp 17 11/07 175 O2 Flow Rate 3 11/07 0800 FiO2 92 11/07 0444 Vital Signs Date Temp Pulse Resp B/P B/P Mean Pulse Ox FiO2 11/06-11/07 98.1-98.4 64-68 17 138-172/50-74 0 .0-97.2 91-94 91-92 24 hour I O ending at 0700: 11/07 0700 11/06 1900 Intake Total Output Total 3200 Balance -3200 Output, 3200 Hemodialysis PATIENT WEIGHT: Weight (lb): Weight (oz): Weight (kg): 101.500 Physical Exam General appearance: alert, awake, oriented Head/Eyes: atraumatic, clear cornea, EOMI, gordon l conjunctiva/sclera, normal eyelids/periorb, normocephalic, PERRL ENT: normal dentition, normal nose, normal phary nx, normal sinus Neck: full range of motion, non-tender, normal thyroid, supple/no meningismus, no bruit/NL carotids, no JVD, no masses or swell ing, no lymphadenopathy Cardiovascular: regular rate rhythm Respiratory: clear to auscultation, no distress Abdomen: non-tender, soft, n o distention, no guarding, no mass/organomegaly, no rebound Extremities: moves all, normal capillary refill, normal sensory, no edema Results Findings/Data: Laboratory Tests 11/07 11/07 11/07 11/07 1750 1045 0823 0455 Chemistry Sodium (134 - 147 mEq/L) 138 Potassium (3.4 - 5.0 mEq/L) 4.2 Chloride (100 - 108 mEq/L) 102 Carbon Dioxide (21 - 33 mEq/l) 25 Anion Gap (0 - 20) 15 BUN (7 - 18 mg/dL) 20 H Creatinine (0.6 - 1.3 mg/dL) 5.5 H Glomerular Filtr Rate (80 - 90) 9.3 L Glucose (70 - 110 mg/dL) 209 H POC Glucose (70 - 110 MG/DL) 237 H 243 H 198 H Calcium (8.0 - 10.5 mg/dL) 8.7 Total Bilirubin (0.0 - 1.0 mg/dL) 0.80 Direct Bilirubin (0.0 - 0.30 MG/DL) 0.30 Indirect Bilirubin (MG/DL) 0.50 AST (15 - 37 IUnit/L) 32 ALT (30 - 65 IUnit/L) 16 L Total Alk Phosphatase (20 - 125 IUnit/L) 93 Total Protein (6.4 - 8.2 g/dL) 7.0 Albumin (3.4 - 5.0 g/dL) 3.20 L Laboratory Tests 11/07 0455 Hematology WBC (4.5 - 11.0 x10 3/uL) 4.9 RBC (3.54 - 5.02 x10 6/uL) 3.91 Hgb (11.0 - 15.0 g/dL) 11.7 Hct (33.0 - 45.0 %) 37.8 MCV (81.0 - 99.0 fL) 96.7 MCH (27.0 - 33.0 pg) 29.9 MCHC (33.0 - 37.0 g/dL) 31.0 L RDW (11.5 - 14.5 %) 15.5 H Plt Count (150 - 400 x10 3/uL) 139 L MPV (7.0 - 9.0 fL) 11.4 H Neut % (Auto) (56.0 - 77.0 %) 87.4 H Lymph % (Auto) (14.0 - 32.0 %) 6.8 L [place] % (Auto) (4.8 - 9.0 %) 5.6 Eos % (Auto) (0.3 - 3.7 %) 0.0 L Baso % (Auto) (0.0 - 2.0 %) 0.0 Neut # (Auto) (2.0 - 7.6 x10 3/uL) 4.24 Lymph # (Auto) (1.0 - 3.8 x10 3/uL) 0.33 L [place] # (Auto) (0.1 - 0.8 x10 3/uL) 0.27 Eos # (Auto) (0.0 - 0.2 x10 3/uL) 0.00 Baso # (Auto) (0.0 - 0.2 x10 3/uL) 0.00 Abs Immat Gran (auto) (0.00 - 0.03 x10 3/uL) 0. 01 Add Manual Diff NO Immature Gran % (0.0 - 2.0 %) 0.2 Nucleated RBC % (0 - 0 %) 0.0 Nucleated RBCs # (Man) (0.0 - 0.1 x10 3/uL) 0.0 0 Results: labs reviewed, vital signs reviewed, cu rrent med profile rev'd Diagnosis, Assessment Plan Free Text A P: 1. Severe Covid with pneumonia and hypoxemia * Patient received a single dose of J J vaccine many months ago * remdesivir for 5 days day #3 * Dexamethasone per recovery trial for 10 days d ay #2 * DVT prophylaxis * C-reactive protein * Oxygen supplementation to keep her oxygen satu ration more than 94% * currently she is on 4L from 6 L 2. End-stage renal disease on hemodialysis 3. Diabetes mellitus type 2 4. Hypertension at 1946 RPT #[id number] END OF REPORT 2021-11-07 06:43:00-00:00 [facility] Cardiology Progress Note REPORT#:[id number] REPORT STATUS: Signed DATE:11/07/21 TIME: 0643 PATIENT: VALENTINE MCNALLY UNIT #: [id number] ROOM/BED: [place] [address] : 53 AGE: 66 SEX: F ATTEND: Ivan Freitas MD ADM AUTHOR: Henry Melara MD * ALL edits or amendments must be made on the el [employer]/computer document * Subjective Chief complaint: Doing good Objective General VS/I O: 24 hour I O ending at 0700: 11/07 0700 11/06 1900 Intake Total Output Total 3200 Balance -3200 Output, 3200 Hemodialysis Vital Signs: Date Time Temp Pulse Resp B/P B/P Pulse O2 O2 F low FiO2 Mean Ox Delivery Rate 11/07 0444 98.2 68 17 172/50 90.8 92 Room air 9 2 11/06 2308 98.4 64 17 161/65 97.2 91 Room air 9 1 11/06 2000 Nasal 3 cannula 11/06 1929 98.1 69 17 185/68 106.7 94 Room air 94 11/06 1852 98.0 62 19 155/68 94 Nasal 3 cannula 11/06 1546 98.2 59 12 150/71 97.6 94 Nasal 3 cannula 11/06 1519 98.2 61 18 146/65 94 Nasal 3 cannula 11/06 1201 98.6 64 12 134/55 81.4 89 Room air 11/06 0748 98.1 69 12 163/61 94.8 97 Nasal 4 cannula PATIENT WEIGHT: Weight (lb): Weight (oz): Weight (kg): 101.500 Medications: Active Meds + DC'd Last 24 Hrs Sodium Chloride (SODIUM CHLORIDE 0.9%) 50 ML Q24 H IV Remdesivir (REMDESIVIR 100MG LYOPHYLIZED) 100 MG Q24H IV Sodium Chloride (SODIUM CHLORIDE 0.9% 100 ML) 100 ML Amlodipine Besylate (NORVASC) 10 MG DAILY PO Famotidine (PEPCID) 20 MG Q24H IV Simvastatin (SIMVASTATIN) 10 MG BEDTIME PO Calcium Acetate (CALCIUM ACETATE) 1,334 MG C MIGUEL LS PO Hydralazine HCl (APRESOLINE) 10 MG Q4H PRN PRN P O Aspirin (ASPIRIN) 81 MG DAILY PO Furosemide (LASIX) 40 MG DAILY PO Isosorbide Mononitrate (Imdur 30 mg) 60 MG DAILY PO Carvedilol (COREG) 25 MG BID MEALS PO Insulin Human Lispro (HUMALOG) 0 AC HS SUBQ Acetaminophen (TYLENOL) 650 MG Q4H PRN PRN PO Dexamethasone (DECADRON) 6 MG DAILY PO Dextrose/Water (DEXTROSE 50% W SYRINGE) 25 ML DIR PRN IV (CKD) Dextrose/Water (DEXTROSE 50% W SYRINGE) 50 ML DIR PRN IV (CKD) Glucagon (GLUCAGON) 1 MG ASDIR PRN IM Heparin Sodium (HEPARIN 5000 UNITS/ML) 5,000 UNI T Q8H SUBQ Ondansetron HCl (ZOFRAN) 4 MG Q4H PRN PRN IV Albumin Human (ALBUMINAR-25%) 12.5 GM ASDIR PRN IV Lidocaine HCl (LIDOCAINE HCL/PF) 0.5 ML ASDIR ID N I-DERMAL (CKD) Mannitol (MANNITOL 25% 12.5GM/50ML) 12.5 GM ASDI R PRN IV Sodium Chloride (SODIUM CHLORIDE 0.9%) 2,000 ML ASDIR PRN IV Sodium Chloride (SODIUM CHLORIDE) 10 ML ASDIR ID N IV Sodium Chloride (SODIUM CHLORIDE 0.9%) 250 ML DIR PRN IV Physical Exam General appearance: sleeping comfortably Head/Eyes: atraumatic, clear cornea, PERRLA ENT: moist mucosal membranes Neck: full range of motion, non-tender, no JVD Cardiovascular: CV assessment: no murmur Respiratory: decreased breath sounds, on oxygen (5L), no distress Abdomen: soft, non-tender, normal bowel sounds Genitourinary: no giraldo Upper extremity: UE assessment: normal capillary refill, normal temperature, no edema Lower extremity: LE assessment: normal temperature, no edema Neuro/LIVE HANGER: normal speech Psychiatry: normal affect Diagnosis, Assessment Plan Free Text DxA P Notes Free Text DxA P Notes: 66 y/o F w/ PMHx: End-stage renal diseas e on dialysis, hypertension, diabetic. Erp Project Manager is consulted for elevated troponin. -Elevated troponin, mild. Likely due to end-stag e renal disease High sensitive troponin 81. LDL 54.6 Will do nuclear stress test after recover from Covid. Echocardiogram showed EF 50-55% - Hypertension. On nitrate and beta-shamir. - End-stage renal disease. On dialysis. Per Neph ro. - COVID-19. Per Pulm On Decadron ID seeing pt. Doing well. Electronically Signed by Henry Melara MD on 10/21 05/11 at 0643 RPT #:[id number] END OF REPORT 2021-11-06 14:12:00-00:00 [facility] REPORT#:[id number] REPORT STATUS: Signed DATE:11/06/21 TIME: 1411 PATIENT: VALENTINE MCNALLY UNIT #: [id number] ROOM/BED: [place] [address] : 53 AGE: 66 SEX: F ATTEND: Ivan Freitas MD ADM AUTHOR: Heber Rainey DO * ALL edits or amendments must be made on the el [employer]/computer document * Subjective Comments: Patient seen and examined, denies any new compla ints. Currently on 3 L via nasal cannula. Reports her nausea and vomiting h ave currently resolved. Wants to try something with more substance Objective General VS/I O: Vital Signs: Date Time Temp Pulse Resp B/P B/P Pulse O2 O2 F low FiO2 Mean Ox Delivery Rate 11/06 1201 98.6 64 12 134/55 81.4 89 Room air 11/06 0748 98.1 69 12 163/61 94.8 97 Nasal 4 cannula 11/06 0339 98.1 71 18 161/69 100.1 96 Nasal 4 cannula 11/06 0017 100 Nasal 4 36 cannula 11/06 0017 98.4 79 17 98/66 76.8 100 Room air 11/05 2351 Nasal 4 cannula 11/05 1644 97.6 71 16 144/67 92 100 Nasal 5 cannula 24 hour I O ending at 0700: 11/06 0700 11/05 1900 Intake Total Output Total 1500 Balance -1500 Output, 1500 Hemodialysis PATIENT WEIGHT: Weight (lb): Weight (oz): Weight (kg): 101.500 Medications: Active Meds + DC'd Last 24 Hrs Sodium Chloride (SODIUM CHLORIDE 0.9%) 50 ML Q24 H IV Remdesivir (REMDESIVIR 100MG LYOPHYLIZED) 100 MG Q24H IV Sodium Chloride (SODIUM CHLORIDE 0.9% 100 ML) 1 00 ML Amlodipine Besylate (NORVASC) 10 MG DAILY PO Famotidine (PEPCID) 20 MG Q12HR IV (DC) Famotidine (PEPCID) 20 MG Q24H IV Simvastatin (SIMVASTATIN) 10 MG BEDTIME PO Calcium Acetate (CALCIUM ACETATE) 1,334 MG C MIGUEL LS PO Sodium Chloride (SODIUM CHLORIDE 0.9%) 50 ML ONC E IV (DC) Remdesivir (REMDESIVIR 100MG LYOPHYLIZED) 200 MG ONCE ONE IV (DC) Sodium Chloride (SODIUM CHLORIDE 0.9%) 250 ML Hydralazine HCl (APRESOLINE) 10 MG Q4H PRN PRN P O Aspirin (ASPIRIN) 81 MG DAILY PO Furosemide (LASIX) 40 MG DAILY PO Isosorbide Mononitrate (Imdur 30 mg) 60 MG DAILY PO Carvedilol (COREG) 25 MG BID MEALS PO Insulin Human Lispro (HUMALOG) 0 AC HS SUBQ Acetaminophen (TYLENOL) 650 MG Q4H PRN PRN PO Dexamethasone (DECADRON) 6 MG DAILY PO Dextrose/Water (DEXTROSE 50% W SYRINGE) 25 ML DIR PRN IV (CKD) Dextrose/Water (DEXTROSE 50% W SYRINGE) 50 ML DIR PRN IV (CKD) Glucagon (GLUCAGON) 1 MG ASDIR PRN IM Heparin Sodium (HEPARIN 5000 UNITS/ML) 5,000 UNI T Q8H SUBQ Ondansetron HCl (ZOFRAN) 4 MG Q4H PRN PRN IV Albumin Human (ALBUMINAR-25%) 12.5 GM ASDIR PRN IV Lidocaine HCl (LIDOCAINE HCL/PF) 0.5 ML ASDIR ID N I-DERMAL (CKD) Mannitol (MANNITOL 25% 12.5GM/50ML) 12.5 GM ASDI R PRN IV Sodium Chloride (SODIUM CHLORIDE 0.9%) 2,000 ML ASDIR PRN IV Sodium Chloride (SODIUM CHLORIDE) 10 ML ASDIR ID N IV Sodium Chloride (SODIUM CHLORIDE 0.9%) 250 ML DIR PRN IV Physical Exam General appearance: alert, awake, oriented Head/Eyes: atraumatic, normocephalic ENT: normal ear left, normal ear right, normal n ose Neck: full range of motion, no JVD Cardiovascular: normal heart sounds, regular rat e rhythm Respiratory: clear to auscultation, symmetric ex pansion, no distress Abdomen: non-tender, normal bowel sounds, soft, no distention Extremities: no clubbing, no cyanosis, no edema Neuro/LIVE HANGER: non focal, alert and oriented to hers elf, doesn't know the name of the hospital Skin: dry, no rash Results Findings/Data: Laboratory Tests 11/06 11/06 11/06 11/05 11/05 1203 0749 0400 2102 1640 Chemistry Sodium (134 - 147 mEq/L) 142 Potassium (3.4 - 5.0 mEq/L) 4.2 Chloride (100 - 108 mEq/L) 103 Carbon Dioxide (21 - 33 mEq/l) 25 Anion Gap (0 - 20) 18 BUN (7 - 18 mg/dL) 38 H Creatinine (0.6 - 1.3 mg/dL) 6.3 H Glomerular Filtr Rate (80 - 90) 8.0 L Glucose (70 - 110 mg/dL) 214 H POC Glucose (70 - 110 MG/DL) 275 H 167 H 149 H 147 H Calcium (8.0 - 10.5 mg/dL) 6.9 L Total Bilirubin (0.0 - 1.0 mg/dL) 0.60 Direct Bilirubin (0.0 - 0.30 MG/DL) 0.20 Indirect Bilirubin (MG/DL) 0.40 AST (15 - 37 IUnit/L) 45 H ALT (30 - 65 IUnit/L) 16 L Total Alk Phosphatase (20 - 125 79 IUnit/L) Total Protein (6.4 - 8.2 g/dL) 6.1 L Albumin (3.4 - 5.0 g/dL) 2.70 L 11/05 1630 Chemistry Creatinine (0.6 - 1.3 mg/dL) 11.0 H Glomerular Filtr Rate (80 - 90) 4.2 L Total Bilirubin (0.0 - 1.0 mg/dL) 0.60 Direct Bilirubin (0.0 - 0.30 MG/DL) 0.20 Indirect Bilirubin (MG/DL) 0.40 AST (15 - 37 IUnit/L) 38 H ALT (30 - 65 IUnit/L) 19 L Total Alk Phosphatase (20 - 125 IUnit/L) 88 Total Protein (6.4 - 8.2 g/dL) 6.6 Albumin (3.4 - 5.0 g/dL) 3.00 L Laboratory Tests 11/05 1630 Coagulation INR (0.8 - 1.2) 1.1 PT Patient/Control Mix (9.3 - 12.9 SECONDS) 11. 9 Laboratory Tests 11/06 0400 Hematology WBC (4.5 - 11.0 x10 3/uL) 2.6 L RBC (3.54 - 5.02 x10 6/uL) 3.44 L Hgb (11.0 - 15.0 g/dL) 10.3 L Hct (33.0 - 45.0 %) 32.9 L MCV (81.0 - 99.0 fL) 95.6 MCH (27.0 - 33.0 pg) 29.9 MCHC (33.0 - 37.0 g/dL) 31.3 L RDW (11.5 - 14.5 %) 15.2 H Plt Count (150 - 400 x10 3/uL) 125 L MPV (7.0 - 9.0 fL) 12.0 H Neut % (Auto) (56.0 - 77.0 %) 87.9 H Lymph % (Auto) (14.0 - 32.0 %) 7.8 L [place] % (Auto) (4.8 - 9.0 %) 3.9 L Eos % (Auto) (0.3 - 3.7 %) 0.0 L Baso % (Auto) (0.0 - 2.0 %) 0.0 Neut # (Auto) (2.0 - 7.6 x10 3/uL) 2.25 Lymph # (Auto) (1.0 - 3.8 x10 3/uL) 0.20 L [place] # (Auto) (0.1 - 0.8 x10 3/uL) 0.10 Eos # (Auto) (0.0 - 0.2 x10 3/uL) 0.00 Baso # (Auto) (0.0 - 0.2 x10 3/uL) 0.00 Abs Immat Gran (auto) (0.00 - 0.03 x10 3/uL) 0. 01 Add Manual Diff NO Immature Gran % (0.0 - 2.0 %) 0.4 Nucleated RBC % (0 - 0 %) 0.0 Nucleated RBCs # (Man) (0.0 - 0.1 x10 3/uL) 0.0 0 Diagnosis, Assessment Plan Problem List/A P: 1. COVID 2. Hyperkalemia 3. Hypoxia 4. Elevated troponin I level 5. HTN (hypertension) 6. Diabetes 7. Metabolic encephalopathy Free Text DxA P Notes Free text DxA P notes: 66 y/o with tobacco abuse, ESRD, HTN, DM, heart disease who presents with AMS and COVID+ with hypoxia. COVID 19 pneumonia * pulmonary/ID * on DVT prophylaxis * Remdesivir started, continue Decadron * pt sister states pt IS VACCINATED with j/j vac cine x2. Hyperkalemia * HD, nephrology following Hypoxia * abnormal CXR * pulmonary following, history of tobacco abuse Elevated troponin I level * echo/cards following HTN (hypertension) * restart BP meds, patient l ost IV access and as needed antihypertensive started * BP also likely improved post hemodialysis Diabetes * Continue SSI. Metabolic encephalopathy * CT head/PT/OT eval. probably multifactorial fr om all above. Pt sister was concerned about a UTI. (pt makes urine). Follow- up UA and culture. Nausea and vomiting * CT of the abdomen pelvis reviewed, sym ptoms improved, advance to full liquid diet * Gastroenterology following, supportive care wi th antiemetics as needed End-stage renal disease * HD TTS per nephrology DVT prophylaxis: Heparin subcutaneous Quality: Gen Med Crit Care VTE Prophylaxis VTE prophylaxis initiated: yes Current Medications Current medication review: I attest that the foregoing medication list in t he medical record is true, accurate, and complete to the best of my knowled ge. Advanced Care Plan 65 or Older Discussed with: surrogate decis. maker Discussion included: living will Electronically Signed by Heber Rainey DO on 10/21 04/10 at 1417 RPT #:[id number] END OF REPORT 2021-11-06 12:46:00-00:00 [facility]) Infectious Dis. Progress Note REPORT#:[id number] REPORT STATUS: Signed DATE:11/06/21 TIME: 1246 PATIENT: VALENTINE MCNALLY UNIT #: [id number] ROOM/BED: [place] [address] : 53 AGE: 66 SEX: F ATTEND: Ivan Freitas MD ADM AUTHOR: Odell Hebert MD * ALL edits or amendments must be made on the el [employer]/computer document * Subjective Chief complaint: Shortness of breath Patient reports: No: cough, diarrhea, fever, headache, nausea. Portions of this section were scribed by Guillermina Sweeney on 11/06/21 at 1246 Objective General VS/I O: Last Documented: Result Date Time Pulse Ox 89 11/06 1201 B/P 134/55 11/06 1201 B/P Mean 81.4 11/06 1201 O2 Delivery Room air 11/06 1201 Temp 37.0 11/06 1201 Pulse 64 11/06 1201 Resp 12 11/06 1201 O2 Flow Rate 4 11/06 0748 FiO2 36 11/06 0017 Vital Signs Date Temp Pulse Resp B/P B/P Mean Pulse Ox FiO 2 11/05-11/06 36.4-37.0 64-79 12-18 98-163/55-69 76.8-100.1 89-100 36 24 hour I O ending at 0700: 11/06 0700 11/05 1900 Intake Total Output Total 1500 Balance -1500 Output, 1500 Hemodialysis PATIENT WEIGHT: Weight (lb): Weight (oz): Weight (kg): 101.500 Physical Exam General appearance: alert, awake, oriented Head/Eyes: atraumatic, clear cornea, EOMI, gordon l conjunctiva/sclera, normal eyelids/periorb, normocephalic, PERRL ENT: normal dentition, normal nose, normal phary nx, normal sinus Neck: full range of motion, non-tender, normal thyroid, supple/no meningismus, no bruit/NL carotids, no JVD, no masses or swell ing, no lymphadenopathy Cardiovascular: regular rate rhythm Respiratory: clear to auscultation, no distress Abdomen: non-tender, soft, n o distention, no guarding, no mass/organomegaly, no rebound Extremities: moves all, normal capillary refill, normal sensory, no edema Results Findings/Data: Laboratory Tests 11/06 11/06 11/06 11/05 11/05 1203 0749 0400 2102 1640 Chemistry Sodium (134 - 147 mEq/L) 142 Potassium (3.4 - 5.0 mEq/L) 4.2 Chloride (100 - 108 mEq/L) 103 Carbon Dioxide (21 - 33 mEq/l) 25 Anion Gap (0 - 20) 18 BUN (7 - 18 mg/dL) 38 H Creatinine (0.6 - 1.3 mg/dL) 6.3 H Glomerular Filtr Rate (80 - 90) 8.0 L Glucose (70 - 110 mg/dL) 214 H POC Glucose (70 - 110 MG/DL) 275 H 167 H 149 H 147 H Calcium (8.0 - 10.5 mg/dL) 6.9 L Total Bilirubin (0.0 - 1.0 mg/dL) 0.60 Direct Bilirubin (0.0 - 0.30 MG/DL) 0.20 Indirect Bilirubin (MG/DL) 0.40 AST (15 - 37 IUnit/L) 45 H ALT (30 - 65 IUnit/L) 16 L Total Alk Phosphatase (20 - 125 IUnit/L) 79 Total Protein (6.4 - 8.2 g/dL) 6.1 L Albumin (3.4 - 5.0 g/dL) 2.70 L 11/05 1630 Chemistry Creatinine (0.6 - 1.3 mg/dL) 11.0 H Glomerular Filtr Rate (80 - 90) 4.2 L Total Bilirubin (0.0 - 1.0 mg/dL) 0.60 Direct Bilirubin (0.0 - 0.30 MG/DL) 0.20 Indirect Bilirubin (MG/DL) 0.40 AST (15 - 37 IUnit/L) 38 H ALT (30 - 65 IUnit/L) 19 L Total Alk Phosphatase (20 - 125 IUnit/L) 88 Total Protein (6.4 - 8.2 g/dL) 6.6 Albumin (3.4 - 5.0 g/dL) 3.00 L Laboratory Tests 11/05 1630 Coagulation INR (0.8 - 1.2) 1.1 PT Patient/Control Mix (9.3 - 12.9 SECONDS) 11. 9 Laboratory Tests 11/06 0400 Hematology WBC (4.5 - 11.0 x10 3/uL) 2.6 L RBC (3.54 - 5.02 x10 6/uL) 3.44 L Hgb (11.0 - 15.0 g/dL) 10.3 L Hct (33.0 - 45.0 %) 32.9 L MCV (81.0 - 99.0 fL) 95.6 MCH (27.0 - 33.0 pg) 29.9 MCHC (33.0 - 37.0 g/dL) 31.3 L RDW (11.5 - 14.5 %) 15.2 H Plt Count (150 - 400 x10 3/uL) 125 L MPV (7.0 - 9.0 fL) 12.0 H Neut % (Auto) (56.0 - 77.0 %) 87.9 H Lymph % (Auto) (14.0 - 32.0 %) 7.8 L [place] % (Auto) (4.8 - 9.0 %) 3.9 L Eos % (Auto) (0.3 - 3.7 %) 0.0 L Baso % (Auto) (0.0 - 2.0 %) 0.0 Neut # (Auto) (2.0 - 7.6 x10 3/uL) 2.25 Lymph # (Auto) (1.0 - 3.8 x10 3/uL) 0.20 L [place] # (Auto) (0.1 - 0.8 x10 3/uL) 0.10 Eos # (Auto) (0.0 - 0.2 x10 3/uL) 0.00 Baso # (Auto) (0.0 - 0.2 x10 3/uL) 0.00 Abs Immat Gran (auto) (0.00 - 0.03 x10 3/uL) 0. 01 Add Manual Diff NO Immature Gran % (0.0 - 2.0 %) 0.4 Nucleated RBC % (0 - 0 %) 0.0 Nucleated RBCs # (Man) (0.0 - 0.1 x10 3/uL) 0.0 0 Active Meds + DC'd Last 24 Hrs Sodium Chloride (SODIUM CHLORIDE 0.9%) 50 ML Q24 H IV Remdesivir (REMDESIVIR 100MG LYOPHYLIZED) 100 MG Q24H IV Sodium Chloride (SODIUM CHLORIDE 0.9% 100 ML) 1 00 ML Amlodipine Besylate (NORVASC) 10 MG DAILY PO Famotidine (PEPCID) 20 MG Q12HR IV (DC) Famotidine (PEPCID) 20 MG Q24H IV Simvastatin (SIMVASTATIN) 10 MG BEDTIME PO Calcium Acetate (CALCIUM ACETATE) 1,334 MG C MIGUEL LS PO Sodium Chloride (SODIUM CHLORIDE 0.9%) 50 ML ONC E IV (DC) Remdesivir (REMDESIVIR 100MG LYOPHYLIZED) 200 MG ONCE ONE IV (DC) Sodium Chloride (SODIUM CHLORIDE 0.9%) 250 ML Hydralazine HCl (APRESOLINE) 10 MG Q4H PRN PRN P O Aspirin (ASPIRIN) 81 MG DAILY PO Furosemide (LASIX) 40 MG DAILY PO Isosorbide Mononitrate (Imdur 30 mg) 60 MG DAILY PO Carvedilol (COREG) 25 MG BID MEALS PO Insulin Human Lispro (HUMALOG) 0 AC HS SUBQ Acetaminophen (TYLENOL) 650 MG Q4H PRN PRN PO Dexamethasone (DECADRON) 6 MG DAILY PO Dextrose/Water (DEXTROSE 50% W SYRINGE) 25 ML DIR PRN IV (CKD) Dextrose/Water (DEXTROSE 50% W SYRINGE) 50 ML DIR PRN IV (CKD) Glucagon (GLUCAGON) 1 MG ASDIR PRN IM Heparin Sodium (HEPARIN 5000 UNITS/ML) 5,000 UNI T Q8H SUBQ Ondansetron HCl (ZOFRAN) 4 MG Q4H PRN PRN IV Albumin Human (ALBUMINAR-25%) 12.5 GM ASDIR PRN IV Lidocaine HCl (LIDOCAINE HCL/PF) 0.5 ML ASDIR ID N I-DERMAL (CKD) Mannitol (MANNITOL 25% 12.5GM/50ML) 12.5 GM ASDI R PRN IV Sodium Chloride (SODIUM CHLORIDE 0.9%) 2,000 ML ASDIR PRN IV Sodium Chloride (SODIUM CHLORIDE) 10 ML ASDIR ID N IV Sodium Chloride (SODIUM CHLORIDE 0.9%) 250 ML DIR PRN IV Portions of this section were scribed by Guillermina Sweeney on 11/06/21 at 1246 Diagnosis, Assessment Plan Free Text A P: 1. Severe Covid with pneumonia and hypoxemia * Patient received a single dose of J J vaccine many months ago * remdesivir for 5 days day #2 * Dexamethasone per recovery trial for 10 days d ay #2 * DVT prophylaxis * C-reactive protein * Oxygen supplementation to keep her oxygen satu ration more than 94% * currently she is on 4L from 6 L 2. End-stage renal disease on hemodialysis 3. Diabetes mellitus type 2 4. Hypertension Portions of this section were scribed by Guillermina Sweeney on 11/06/21 at 1246 at 0626 RPT #:[id number] END OF REPORT 2021-11-06 10:59:00-00:00 [facility] Progress Note REPORT#:[id number] REPORT STATUS: Signed DATE:11/06/21 TIME: 1059 PATIENT: VALENTINE MCNALLY UNIT #: [id number] ROOM/BED: [address] : 53 AGE: 66 SEX: F ATTEND: Ivan Freitas MD ADM AUTHOR: Shanika Vasquez MD * ALL edits or amendments must be made on the el [employer]/computer document * Subjective Chief complaint: No acute events overnight Reports feeling better She is vaccinated with the Tobi Tobi vacci ne Review of Systems ROS Constitutional: Denies: chills, fatigue. Respiratory: Denies: PAN (dyspnea on exertion), hemoptysis, p neumonia, productive cough ( sputum), SOB, wheezing. Cardiovascular: Denies: chest pain, edema, orthopnea. GI: Denies: abdominal pain, nausea, vomiting. Heme: Denies: bleeding. Neuro: Denies: headache. Objective General VS/I O: Last Documented: Result Date Time Pulse Ox 97 11/06 747 B/P 163/61 11/06 747 B/P Mean 94.8 11/06 747 O2 Delivery Nasal cannula 11/06 747 O2 Flow Rate 4 11/06 747 Temp 36.7 11/06 747 Pulse 69 11/06 747 Resp 12 11/06 747 FiO2 36 11/06 0017 24 hour I O ending at 0700: 11/06 0700 11/05 1900 Intake Total Output Total 1500 Balance -1500 Output, 1500 Hemodialysis PATIENT WEIGHT: Weight (lb): Weight (oz): Weight (kg): 101.500 Medications: Active Meds + DC'd Last 24 Hrs Sodium Chloride (SODIUM CHLORIDE 0.9%) 50 ML Q24 H IV Remdesivir (REMDESIVIR 100MG LYOPHYLIZED) 100 MG Q24H IV Sodium Chloride (SODIUM CHLORIDE 0.9% 100 ML) 1 00 ML Amlodipine Besylate (NORVASC) 10 MG DAILY PO (UN Vr) Famotidine (PEPCID) 20 MG Q12HR IV (DC) Famotidine (PEPCID) 20 MG Q24H IV Simvastatin (SIMVASTATIN) 10 MG BEDTIME PO Calcium Acetate (CALCIUM ACETATE) 1,334 MG C ME ALS PO Sodium Chloride (SODIUM CHLORIDE 0.9%) 50 ML ONC E IV (DC) Remdesivir (REMDESIVIR 100MG LYOPHYLIZED) 200 MG ONCE ONE IV (DC) Sodium Chloride (SODIUM CHLORIDE 0.9%) 250 ML Hydralazine HCl (APRESOLINE) 10 MG Q4H PRN PRN P O Aspirin (ASPIRIN) 81 MG DAILY PO Furosemide (LASIX) 40 MG DAILY PO Isosorbide Mononitrate (Imdur 30 mg) 60 MG DAILY PO Carvedilol (COREG) 25 MG BID MEALS PO Insulin Human Lispro (HUMALOG) 0 AC HS SUBQ Acetaminophen (TYLENOL) 650 MG Q4H PRN PRN PO Dexamethasone (DECADRON) 6 MG DAILY PO Dextrose/Water (DEXTROSE 50% W SYRINGE) 25 ML DIR PRN IV (CKD) Dextrose/Water (DEXTROSE 50% W SYRINGE) 50 ML DIR PRN IV (CKD) Glucagon (GLUCAGON) 1 MG ASDIR PRN IM Heparin Sodium (HEPARIN 5000 UNITS/ML) 5,000 UNI T Q8H SUBQ Ondansetron HCl (ZOFRAN) 4 MG Q4H PRN PRN IV Albumin Human (ALBUMINAR-25%) 12.5 GM ASDIR PRN IV Lidocaine HCl (LIDOCAINE HCL/PF) 0.5 ML ASDIR ID N I-DERMAL (CKD) Mannitol (MANNITOL 25% 12.5GM/50ML) 12.5 GM ASDI R PRN IV Sodium Chloride (SODIUM CHLORIDE 0.9%) 2,000 ML ASDIR PRN IV Sodium Chloride (SODIUM CHLORIDE) 10 ML ASDIR ID N IV Sodium Chloride (SODIUM CHLORIDE 0.9%) 250 ML DIR PRN IV Physical Exam General appearance: alert, awake, oriented, no a cute distress, pleasant, conversational, mental status normal, no respira tory distress Head/eyes: atraumatic, normocephalic, PERRL Neck: full range of motion, non-tender Cardiovascular: normal heart sounds, normal S1/S 2, regular rate rhythm, no murmur, no rub, no gallop Respiratory/chest: on oxygen, aerating well, hany ar to auscultation, symmetric expansion, no distress, no tenderness Abdomen: soft, non-tender, no CVA tenderness, no distention Extremities: no cyanosis, no edema Musculoskeletal: no muscle spasm Neuro/LIVE HANGER: alert Results Findings/Data: Laboratory Tests 11/06/21 0400: [Embedded Image Not Available] 11/05/21 1630: [Embedded Image Not Available] Laboratory Tests 11/06 11/06 11/05 11/05 11/05 0749 0400 2102 1640 1630 Chemistry Sodium (134 - 147 mEq/L) 142 Potassium (3.4 - 5.0 mEq/L) 4.2 Chloride (100 - 108 mEq/L) 103 Carbon Dioxide (21 - 33 mEq/l) 25 Anion Gap (0 - 20) 18 BUN (7 - 18 mg/dL) 38 H Creatinine (0.6 - 1.3 mg/dL) 6.3 H 11.0 H Glomerular Filtr Rate (80 - 90) 8.0 L 4.2 L Glucose (70 - 110 mg/dL) 214 H POC Glucose (70 - 110 MG/DL) 167 H 149 H 147 H Calcium (8.0 - 10.5 mg/dL) 6.9 L Total Bilirubin (0.0 - 1.0 mg/dL) 0.60 0.60 Direct Bilirubin (0.0 - 0.30 MG/DL) 0.20 0.20 Indirect Bilirubin (MG/DL) 0.40 0.40 AST (15 - 37 IUnit/L) 45 H 38 H ALT (30 - 65 IUnit/L) 16 L 19 L Total Alk Phosphatase (20 - 125 79 88 IUnit/L) Total Protein (6.4 - 8.2 g/dL) 6.1 L 6.6 Albumin (3.4 - 5.0 g/dL) 2.70 L 3.00 L 11/05 1127 Chemistry POC Glucose (70 - 110 MG/DL) 132 H Laboratory Tests 11/05 1630 Coagulation INR (0.8 - 1.2) 1.1 PT Patient/Control Mix (9.3 - 12.9 SECONDS) 11. 9 Laboratory Tests 11/06 0400 Hematology WBC (4.5 - 11.0 x10 3/uL) 2.6 L RBC (3.54 - 5.02 x10 6/uL) 3.44 L Hgb (11.0 - 15.0 g/dL) 10.3 L Hct (33.0 - 45.0 %) 32.9 L MCV (81.0 - 99.0 fL) 95.6 MCH (27.0 - 33.0 pg) 29.9 MCHC (33.0 - 37.0 g/dL) 31.3 L RDW (11.5 - 14.5 %) 15.2 H Plt Count (150 - 400 x10 3/uL) 125 L MPV (7.0 - 9.0 fL) 12.0 H Neut % (Auto) (56.0 - 77.0 %) 87.9 H Lymph % (Auto) (14.0 - 32.0 %) 7.8 L [place] % (Auto) (4.8 - 9.0 %) 3.9 L Eos % (Auto) (0.3 - 3.7 %) 0.0 L Baso % (Auto) (0.0 - 2.0 %) 0.0 Neut # (Auto) (2.0 - 7.6 x10 3/uL) 2.25 Lymph # (Auto) (1.0 - 3.8 x10 3/uL) 0.20 L [place] # (Auto) (0.1 - 0.8 x10 3/uL) 0.10 Eos # (Auto) (0.0 - 0.2 x10 3/uL) 0.00 Baso # (Auto) (0.0 - 0.2 x10 3/uL) 0.00 Abs Immat Gran (auto) (0.00 - 0.03 x10 3/uL) 0. 01 Add Manual Diff NO Immature Gran % (0.0 - 2.0 %) 0.4 Nucleated RBC % (0 - 0 %) 0.0 Nucleated RBCs # (Man) (0.0 - 0.1 x10 3/uL) 0.0 0 Radiology data: Recent Impressions: CAT SCAN - CT ABD PELVIS W/O CONT 11/05 1311 Report Impression - Status: SIGNED Entered: 11/05/2021 1341 IMPRESSION: 1. Extensive bilateral pulmonary opacities with multifocal areas of consolidation compatible with acute pneumonia, v iral versus other infectious and noninfectious etiologies. Commonl y reported imaging features of COVID-19 pneumonia are present. Othe r processes such as influenza pneumonia and organizing pneumonia, as can be seen with drug toxicity and connective tissue disease, can cause a similar imaging pattern. (Reference: Carlos) 2. The stomach is moderately distended with flui d. There is no evidence for bowel obstruction. 3. Colonic diverticulosis. 4. Severe atherosclerosis. 5. Atrophic kidneys containing multiple simple c ortical cyst compatible with end-stage renal disease. 6. Incidental finding of left adrenal thickening , indeterminate by attenuation values.Consider 12 month follow-up a drenal CT. (Reference: [facility]) REFERENCES: 1. Carlos Dent, et al., Radiological Society of [facility] [place] Expert Consensus Statement on Reporting Chest CT Findin gs Related to COVID-19. Endorsed by the Society of Thoracic Ra diology, the [place] [employer], and RSNA. Publish ed December 13, 2019. 2. Liban PIERCE, et al. Management of Incidenta l Adrenal Masses: A White Paper of the ACR Incidental Findings [place]. J Am Loren Radiol. 2017;14(8):1654-6275. Impression By: Rivas Richardson M.D. Diagnosis, Assessment Plan Free Text A P: Impressions: Acute hypoxemic respiratory failur COVID 19 infecction ESRD on HD DM CAD Recommendations: Stable pulmonary status on 4 L CXR reviewed extensive bilateral pulmonary opaci ties with superimposed edema Lower cuts of the lungs reviewed and CT abdomen shows patchy opacities consistent with COVID-19 infection Maintain SPO2 more than 92% C/w decadron Continue remdesivir Continue with incentive spirometer C/w bronchodilators ESRD on HD per renal DVT ppx Full Code Electronically Signed by Shanika Vasquez MD o n 11/06/21 at 1101 RPT #:[id number] END OF REPORT 2021-11-06 10:35:00-00:00 [facility] Nephrology Progress Note REPORT#:[id number] REPORT STATUS: Signed DATE:11/06/21 TIME: 1035 PATIENT: VALENTINE MCNALLY UNIT #: [id number] ROOM/BED: [place] [address] : 53 AGE: 66 SEX: F ATTEND: Ivan Freitas MD ADM AUTHOR: Marie Salas MD * ALL edits or amendments must be made on the [employer]/computer document * Subjective Comments: Feels better. Objective General VS/I O: Vital Signs: Date Time Temp Pulse Resp B/P B/P Pulse O2 O2 F low FiO2 Mean Ox Delivery Rate 11/06 0748 98.1 69 12 163/61 94.8 97 Nasal 4 cannula 11/06 0339 98.1 71 18 161/69 100.1 96 Nasal 4 cannula 11/06 0017 100 Nasal 4 36 cannula 11/06 0017 98.4 79 17 98/66 76.8 100 Room air 11/05 2351 Nasal 4 cannula 11/05 1644 97.6 71 16 144/67 92 100 Nasal 5 cannula 11/05 1133 98.1 70 17 184/74 110.8 98 Room air 24 hour I O ending at 0700: 11/06 0700 11/05 1900 Intake Total Output Total 1500 Balance -1500 Output, 1500 Hemodialysis PATIENT WEIGHT: Weight (lb): Weight (oz): Weight (kg): 101.500 Medications Active Meds + DC'd Last 24 Hrs Sodium Chloride (SODIUM CHLORIDE 0.9%) 50 ML Q24 H IV Remdesivir (REMDESIVIR 100MG LYOPHYLIZED) 100 MG Q24H IV Sodium Chloride (SODIUM CHLORIDE 0.9% 100 ML) 1 00 ML Famotidine (PEPCID) 20 MG Q12HR IV (DC) Famotidine (PEPCID) 20 MG Q24H IV Simvastatin (SIMVASTATIN) 10 MG BEDTIME PO Calcium Acetate (CALCIUM ACETATE) 1,334 MG C MIGUEL LS PO Sodium Chloride (SODIUM CHLORIDE 0.9%) 50 ML ONC E IV (DC) Remdesivir (REMDESIVIR 100MG LYOPHYLIZED) 200 MG ONCE ONE IV (DC) Sodium Chloride (SODIUM CHLORIDE 0.9%) 250 ML Hydralazine HCl (APRESOLINE) 10 MG Q4H PRN PRN P O Aspirin (ASPIRIN) 81 MG DAILY PO Furosemide (LASIX) 40 MG DAILY PO Isosorbide Mononitrate (Imdur 30 mg) 60 MG DAILY PO Carvedilol (COREG) 25 MG BID MEALS PO Insulin Human Lispro (HUMALOG) 0 AC HS SUBQ Acetaminophen (TYLENOL) 650 MG Q4H PRN PRN PO Dexamethasone (DECADRON) 6 MG DAILY PO Dextrose/Water (DEXTROSE 50% W SYRINGE) 25 ML DIR PRN IV (CKD) Dextrose/Water (DEXTROSE 50% W SYRINGE) 50 ML DIR PRN IV (CKD) Glucagon (GLUCAGON) 1 MG ASDIR PRN IM Heparin Sodium (HEPARIN 5000 UNITS/ML) 5,000 UNI T Q8H SUBQ Ondansetron HCl (ZOFRAN) 4 MG Q4H PRN PRN IV Albumin Human (ALBUMINAR-25%) 12.5 GM ASDIR PRN IV Lidocaine HCl (LIDOCAINE HCL/PF) 0.5 ML ASDIR ID N I-DERMAL (CKD) Mannitol (MANNITOL 25% 12.5GM/50ML) 12.5 GM ASDI R PRN IV Sodium Chloride (SODIUM CHLORIDE 0.9%) 2,000 ML ASDIR PRN IV Sodium Chloride (SODIUM CHLORIDE) 10 ML ASDIR ID N IV Sodium Chloride (SODIUM CHLORIDE 0.9%) 250 ML DIR PRN IV Physical Exam General appearance: alert, awake, oriented Head/eyes: atraumatic, normocephalic, PERRLA Neck: no JVD, no lymphadenopathy Cardiovascular: normal heart sounds, regular rat e and rhythm, no rub Respiratory: decreased breath sounds Abdomen: non-tender, normal bowel sounds, soft, no rebound Genitourinary: no bladder distention, no flank p ain, no urinary catheter Extremities: no edema, no gangrene Neuro/LIVE HANGER: alert, oriented X 3, CN II-XII intact , normal speech Results Findings/Data: Laboratory Tests 11/06 11/06 11/05 11/05 11/05 0749 0400 2102 1640 1630 Chemistry Sodium (134 - 147 mEq/L) 142 Potassium (3.4 - 5.0 mEq/L) 4.2 Chloride (100 - 108 mEq/L) 103 Carbon Dioxide (21 - 33 mEq/l) 25 Anion Gap (0 - 20) 18 BUN (7 - 18 mg/dL) 38 H Creatinine (0.6 - 1.3 mg/dL) 6.3 H 11.0 H Glomerular Filtr Rate (80 - 90) 8.0 L 4.2 L Glucose (70 - 110 mg/dL) 214 H POC Glucose (70 - 110 MG/DL) 167 H 149 H 147 H Calcium (8.0 - 10.5 mg/dL) 6.9 L Total Bilirubin (0.0 - 1.0 mg/dL) 0.60 0.60 Direct Bilirubin (0.0 - 0.30 MG/DL) 0.20 0.20 Indirect Bilirubin (MG/DL) 0.40 0.40 AST (15 - 37 IUnit/L) 45 H 38 H ALT (30 - 65 IUnit/L) 16 L 19 L Total Alk Phosphatase (20 - 125 IUnit/L) 79 88 Total Protein (6.4 - 8.2 g/dL) 6.1 L 6.6 Albumin (3.4 - 5.0 g/dL) 2.70 L 3.00 L 11/05 1127 Chemistry POC Glucose (70 - 110 MG/DL) 132 H Laboratory Tests 11/05 1630 Coagulation INR (0.8 - 1.2) 1.1 PT Patient/Control Mix (9.3 - 12.9 SECONDS) 11. 9 Laboratory Tests 11/06 0400 Hematology WBC (4.5 - 11.0 x10 3/uL) 2.6 L RBC (3.54 - 5.02 x10 6/uL) 3.44 L Hgb (11.0 - 15.0 g/dL) 10.3 L Hct (33.0 - 45.0 %) 32.9 L MCV (81.0 - 99.0 fL) 95.6 MCH (27.0 - 33.0 pg) 29.9 MCHC (33.0 - 37.0 g/dL) 31.3 L RDW (11.5 - 14.5 %) 15.2 H Plt Count (150 - 400 x10 3/uL) 125 L MPV (7.0 - 9.0 fL) 12.0 H Neut % (Auto) (56.0 - 77.0 %) 87.9 H Lymph % (Auto) (14.0 - 32.0 %) 7.8 L Dakota % (Auto) (4.8 - 9.0 %) 3.9 L Eos % (Auto) (0.3 - 3.7 %) 0.0 L Baso % (Auto) (0.0 - 2.0 %) 0.0 Neut # (Auto) (2.0 - 7.6 x10 3/uL) 2.25 Lymph # (Auto) (1.0 - 3.8 x10 3/uL) 0.20 L Dakota # (Auto) (0.1 - 0.8 x10 3/uL) 0.10 Eos # (Auto) (0.0 - 0.2 x10 3/uL) 0.00 Baso # (Auto) (0.0 - 0.2 x10 3/uL) 0.00 Abs Immat Gran (auto) (0.00 - 0.03 x10 3/uL) 0. 01 Add Manual Diff NO Immature Gran % (0.0 - 2.0 %) 0.4 Nucleated RBC % (0 - 0 %) 0.0 Nucleated RBCs # (Man) (0.0 - 0.1 x10 3/uL) 0. 00 Radiology data: Recent Impressions: CAT SCAN - CT ABD PELVIS W/O CONT 11/05 1311 Report Impression - Status: SIGNED Entered: 11/05/2021 1341 IMPRESSION: 1. Extensive bilateral pulmonary opacities with multifocal areas of consolidation compatible with acute pneumonia, v iral versus other infectious and noninfectious etiologies. Commonl y reported imaging features of COVID-19 pneumonia are present. Othe r processes such as influenza pneumonia and organizing pneumonia, as can be seen with drug toxicity and connective tissue disease, can cause a similar imaging pattern. (Reference: Carlos) 2. The stomach is moderately distended with flui d. There is no evidence for bowel obstruction. 3. Colonic diverticulosis. 4. Severe atherosclerosis. 5. Atrophic kidneys containing multiple simple c ortical cyst compatible with end-stage renal disease. 6. Incidental finding of left adrenal thickening , indeterminate by attenuation values.Consider 12 month follow-up a drenal CT. (Reference: Liban) REFERENCES: 1. Carlos Dent, et al., Radiological Society of [place] Expert Consensus Statement on Reporting Chest CT Findin gs Related to COVID-19. Endorsed by the Society of Thoracic Ra diology, the [place] [employer], and RSNA. Publish ed December 13, 2019. 2. Liban PIERCE, et al. Management of Incidenta l Adrenal Masses: A White Paper of the ACR Incidental Findings Commi ttee. J Am Loren Radiol. 2017;14(8):6911-7949. Impression By: Rivas Richardson M.D. Diagnosis, Assessment Plan Free Text A P: 1. ESRD continue with TTS schedule, HD today wit h UF as blood pressure tolerates 2. Electrolytes Hypocalcemia HD with 3.5 calcium bath today, hyperphosphatemia started PhosLo 2 caps p.o. 3 t imes daily with meals 3. Nausea vomiting symptoms improving. CT abdome n and pelvis noted 4. Anemia of CKD start ÁNGEL if hemoglobin remains less than 10 5. COVID-19 pneumonia ID consulted, started on r emdesivir and steroid 6. Hypertension start amlodipine 7. DM2 per primary team Electronically Signed by Marie Salas MD on at 1551 RPT #:[id number] END OF REPORT 2021-11-06 08:36:00-00:00 [facility] Cardiology Progress Note REPORT#:[id number] REPORT STATUS: Signed DATE:11/06/21 TIME: 835 PATIENT: VALENTINE MCNALLY UNIT #: [id number] ROOM/BED: [place] [address] : 53 AGE: 66 SEX: F ATTEND: Ivan Freitas MD ADM AUTHOR: Karyn Oneill NP * ALL edits or amendments must be made on the [employer]/computer document * Subjective Chief complaint: Doing good Patient reports: No: chest pain, palpitations, shortness of breat h. Nursing reports: No: complaints. Comments: Patient is in room air Objective General VS/I O: 24 hour I O ending at 0700: 11/05 1900 11/06 0700 Intake Total Output Total 1500 Balance -1500 Output, 1500 Hemodialysis Vital Signs: Date Time Temp Pulse Resp B/P B/P Pulse O2 O2 F low FiO2 Mean Ox Delivery Rate 11/06 1201 98.6 64 12 134/55 81.4 89 Room air 11/06 0748 98.1 69 12 163/61 94.8 97 Nasal 4 cannula 11/06 0339 98.1 71 18 161/69 100.1 96 Nasal 4 cannula 11/06 0017 100 Nasal 4 36 cannula 11/06 0017 98.4 79 17 98/66 76.8 100 Room air 11/05 2351 Nasal 4 cannula 11/05 1644 97.6 71 16 144/67 92 100 Nasal 5 cannula PATIENT WEIGHT: Weight (lb): Weight (oz): Weight (kg): 101.500 Medications: Active Meds + DC'd Last 24 Hrs Sodium Chloride (SODIUM CHLORIDE 0.9%) 50 ML Q24 H IV Remdesivir (REMDESIVIR 100MG LYOPHYLIZED) 100 MG Q24H IV Sodium Chloride (SODIUM CHLORIDE 0.9% 100 ML) 1 00 ML Amlodipine Besylate (NORVASC) 10 MG DAILY PO Famotidine (PEPCID) 20 MG Q12HR IV (DC) Famotidine (PEPCID) 20 MG Q24H IV Simvastatin (SIMVASTATIN) 10 MG BEDTIME PO Calcium Acetate (CALCIUM ACETATE) 1,334 MG C MIGUEL LS PO Hydralazine HCl (APRESOLINE) 10 MG Q4H PRN PRN P O Aspirin (ASPIRIN) 81 MG DAILY PO Furosemide (LASIX) 40 MG DAILY PO Isosorbide Mononitrate (Imdur 30 mg) 60 MG DAILY PO Carvedilol (COREG) 25 MG BID MEALS PO Insulin Human Lispro (HUMALOG) 0 AC HS SUBQ Acetaminophen (TYLENOL) 650 MG Q4H PRN PRN PO Dexamethasone (DECADRON) 6 MG DAILY PO Dextrose/Water (DEXTROSE 50% W SYRINGE) 25 ML DIR PRN IV (CKD) Dextrose/Water (DEXTROSE 50% W SYRINGE) 50 ML DIR PRN IV (CKD) Glucagon (GLUCAGON) 1 MG ASDIR PRN IM Heparin Sodium (HEPARIN 5000 UNITS/ML) 5,000 UNI T Q8H SUBQ Ondansetron HCl (ZOFRAN) 4 MG Q4H PRN PRN IV Albumin Human (ALBUMINAR-25%) 12.5 GM ASDIR PRN IV Lidocaine HCl (LIDOCAINE HCL/PF) 0.5 ML ASDIR ID N I-DERMAL (CKD) Mannitol (MANNITOL 25% 12.5GM/50ML) 12.5 GM ASDI R PRN IV Sodium Chloride (SODIUM CHLORIDE 0.9%) 2,000 ML ASDIR PRN IV Sodium Chloride (SODIUM CHLORIDE) 10 ML ASDIR ID N IV Sodium Chloride (SODIUM CHLORIDE 0.9%) 250 ML DIR PRN IV Physical Exam General appearance: alert, awake, oriented, no a cute distress, mental status normal, no respiratory distress Head/Eyes: atraumatic, clear cornea, PERRLA ENT: moist mucosal membranes Neck: full range of motion, non-tender, no JVD Cardiovascular: CV assessment: no murmur Respiratory: decreased breath sounds, on oxygen (5L), no distress Abdomen: soft, non-tender, normal bowel sounds Genitourinary: no giraldo Upper extremity: UE assessment: normal capillary refill, normal temperature, no edema Lower extremity: LE assessment: normal temperature, no edema Neuro/LIVE HANGER: normal speech Psychiatry: normal affect Results Findings/Data: Laboratory Tests 11/05 11/05 11/05 11/06 11/06 1630 1640 2102 0400 0749 Chemistry Sodium (134 - 147 mEq/L) 142 Potassium (3.4 - 5.0 mEq/L) 4.2 Chloride (100 - 108 mEq/L) 103 Carbon Dioxide (21 - 33 mEq/l) 25 Anion Gap (0 - 20) 18 BUN (7 - 18 mg/dL) 38 H Creatinine (0.6 - 1.3 mg/dL) 11.0 H 6.3 H Glomerular Filtr Rate (80 - 90) 4.2 L 8.0 L Glucose (70 - 110 mg/dL) 214 H POC Glucose (70 - 110 MG/DL) 147 H 149 H 167 H Calcium (8.0 - 10.5 mg/dL) 6.9 L Total Bilirubin (0.0 - 1.0 mg/dL) 0.60 0.60 Direct Bilirubin (0.0 - 0.30 MG/DL) 0.20 0.20 Indirect Bilirubin (MG/DL) 0.40 0.40 AST (15 - 37 IUnit/L) 38 H 45 H ALT (30 - 65 IUnit/L) 19 L 16 L Total Alk Phosphatase (20 - 125 IUnit/L) 88 79 Total Protein (6.4 - 8.2 g/dL) 6.6 6.1 L Albumin (3.4 - 5.0 g/dL) 3.00 L 2.70 L 11/06 1203 Chemistry POC Glucose (70 - 110 MG/DL) 275 H Laboratory Tests 11/05 1630 Coagulation INR (0.8 - 1.2) 1.1 PT Patient/Control Mix (9.3 - 12.9 SECONDS) 11. 9 Laboratory Tests 11/06 0400 Hematology WBC (4.5 - 11.0 x10 3/uL) 2.6 L RBC (3.54 - 5.02 x10 6/uL) 3.44 L Hgb (11.0 - 15.0 g/dL) 10.3 L Hct (33.0 - 45.0 %) 32.9 L MCV (81.0 - 99.0 fL) 95.6 MCH (27.0 - 33.0 pg) 29.9 MCHC (33.0 - 37.0 g/dL) 31.3 L RDW (11.5 - 14.5 %) 15.2 H Plt Count (150 - 400 x10 3/uL) 125 L MPV (7.0 - 9.0 fL) 12.0 H Neut % (Auto) (56.0 - 77.0 %) 87.9 H Lymph % (Auto) (14.0 - 32.0 %) 7.8 L Dakota % (Auto) (4.8 - 9.0 %) 3.9 L Eos % (Auto) (0.3 - 3.7 %) 0.0 L Baso % (Auto) (0.0 - 2.0 %) 0.0 Neut # (Auto) (2.0 - 7.6 x10 3/uL) 2.25 Lymph # (Auto) (1.0 - 3.8 x10 3/uL) 0.20 L Dakota # (Auto) (0.1 - 0.8 x10 3/uL) 0.10 Eos # (Auto) (0.0 - 0.2 x10 3/uL) 0.00 Baso # (Auto) (0.0 - 0.2 x10 3/uL) 0.00 Abs Immat Gran (auto) (0.00 - 0.03 x10 3/uL) 0. 01 Add Manual Diff NO Immature Gran % (0.0 - 2.0 %) 0.4 Nucleated RBC % (0 - 0 %) 0.0 Nucleated RBCs # (Man) (0.0 - 0.1 x10 3/uL) 0.0 0 Results: labs reviewed, vital signs reviewed, vi ofe signs stable, rhythm personally rev'd, current med profile rev'd Telemetry Interpretation: Normal sinus rhythm Diagnosis, Assessment Plan Plan discussed with: nurse Free Text DxA P Notes Free Text DxA P Notes: 66 y/o F w/ PMHx: End-stage renal diseas e on dialysis, hypertension, diabetic. Erp Project Manager is consulted for elevated troponin. -Elevated troponin, mild. Likely due to end-stag e renal disease High sensitive troponin 81. LDL 54.6 Will do nuclear stress test after recover from Covid. Echocardiogram showed EF 50-55% - Hypertension. On nitrate and beta-shamir. - End-stage renal disease. On dialysis. Per Neph ro. - COVID-19. Per Pulm On Decadron ID seeing pt. Doing well. Electronically Signed by Karyn Oneill NP on at 1532 Electronically Signed by Henry Melara MD on 10/21 04/10 at 2050 RPT #:[id number] END OF REPORT 2021-11-05 16:48:00-00:00 [id number] [place] [id number] PATIENT NAME: VALENTINE MCNALLY ADMIT DATE: ACCOUNT NO: [id number] ROOM NO: [facility] AGE: 66 REPORT TYPE: eECHOCARDIOGRAM REPORT SEX: F ADMITTING PHYSICIAN:Ivan Freitas MD ATTENDING PHYSICIAN:Ivan Freitas MD *[place] [address] Transthoracic Echocardiogram Patient: Valentine Mcnally Study Date: 11/05/2021 BP: 175 / 72 Location: [facility] URN: [id number] : 1955 Age: 66 Height: 64 in / 162.6 cm Gender: F Weight: 222 .5 lb / 101.2 kg BMI/BSA: 38.3 kg/m 2 / 2.19 m 2 *Ordering Physician: Daniel LaureanoInterpreting Physician: Henry Weems MD *Form Raiser: * Zaida Paredes Indications: Positive Troponin I. Study data: Transthoracic echocardiogram. Proced ure: Transthoracic echocardiography was performed. Image quality wa s adequate. Complete 2D, complete spectral Doppler, and color Doppler . Location: Bedside. Patient status: Inpatient. Patient room number: C136. Study status: Routine. Rhythm: Normal sinus rhythm. Findings Left ventricle: The cavity size is dilated. Wall thickness is normal. Systolic function is normal. The estimated eject ion fraction is 50-55%. Wall motion is normal; there are no regional wal l motion abnormalities. Left ventricular diastolic function parameters a re indeterminate. Right ventricle: Estimated TAPSE is 2.7 cm. The cavity size is normal. PATIENT NAME: VALENTINE MCNALLY ACCOUNT #: [id number] Systolic function is normal. Left atrium: The atrium is normal in size. Right atrium: The atrium is normal in size. Aorta: Aortic root: The aortic root is normal in size. Aortic valve: The valve is structurally normal. The valve is trileaflet. There is no evidence of stenosis. Th ere is trivial regurgitation. Mitral valve: The valve is structurally normal. There is no evidence of stenosis. There is mild regurgitatio n. Tricuspid valve: The valve is structurally gordon l. There is no regurgitation. Pulmonic valve: The valve is structurally normal . There is mild regurgitation. Pericardium: There is no pericardial effusion. Pulmonary arteries: The main pulmonary artery is normal-sized. Systemic veins: Inferior vena cava: The vessel is normal in size . The respirophasic diameter changes are in the normal range (= 50%) . Measurements Left ventricle Value Ref CONNOR, LAX 6.3 cm 3.8 - 5.2 ESD, LAX 4.4 cm 2.2 - 3.5 ESD/bsa, LAX 2.0 cm/m 2 1.3 - 2.1 FS, LAX 31 % 27 - 45 ESD/bsa major 3.5 cm/m 2 --------- ax, A4C CONNOR/bsa minor 3.5 cm/m 2 --------- ax, A4C CONNOR major ax, 8.4 cm --------- A2C ESD major ax, 7.1 cm --------- A2C CONNOR/bsa major 3.8 cm/m 2 --------- ax, A2C ESD/bsa major 3.3 cm/m 2 --------- ax, A2C PW, ED 0.6 cm 0.6 - 0.9 IVS/PW, ED 1.46 --------- EF 58 % 54 - 74 E', lat claudia, 7.3 cm/sec >=10.0 TDI E/e', lat claudia, 13 --------- TDI E', med claudia, 4.2 cm/sec >=7.0 TDI E/e', med claudia, 23 --------- TDI E', avg, TDI 5.7 cm/sec --------- E/e', avg, TDI 17 <=14 PATIENT NAME: VALENTINE MCNALLY ACCOUNT #: [id number] LVOT Value Ref Diam, S 1.96 cm --------- Area 3.0 cm 2 --------- Peak kayden, S 1.05 m/sec --------- Mean kayden, S 0.68 m/sec --------- VTI, S 22.6 cm --------- Peak grad, S 4 mm Hg --------- Mean grad, S 2 mm Hg --------- SV 68 ml --------- Qs 4.54 L/min --------- Qs/bsa 2.1 L/(min-m 2) --------- SV/bsa 31 ml/m 2 --------- Ventricular septum Value Ref IVS, ED 0.9 cm 0.6 - 0.9 Right ventricle Value Ref TAPSE, MM 2.7 cm 1.7 - 3.1 Left atrium Value Ref AP dim, ES 3.98 cm 2.70 - 3.80 Vol/bsa, ES, 25 ml/m 2 11 - 40 1-p A4C Vol, ES, 2-p 59 ml --------- Vol/bsa, ES, 27 ml/m 2 16 - 34 2-p Vol/bsa, ES, 26 ml/m 2 16 - 34 A/L AP dim, ES MM 4.6 cm 2.7 - 3.8 LA/Ao root 1.72 --------- ratio, MM Right atrium Value Ref Area, ES 12 cm 2 10 - 18 Aortic valve Value Ref Leaflet sep, MM 1.69 cm --------- Peak v, S 1.63 m/sec --------- Mean v, S 1.04 m/sec --------- VTI, S 33.6 cm --------- Mean grad, S 5.2 mm Hg --------- Peak grad, S 10.6 mm Hg --------- LVOT/AV, VTI 0.67 --------- ratio ALINE, VTI 2.02 cm 2 --------- LVOT/AV, Vpeak 0.65 --------- ratio ALINE, Vmax 1.95 cm 2 --------- Mitral valve Value Ref Peak E 0.06 m/sec --------- Peak A 1.26 m/sec --------- Mean v, D 0.84 m/sec --------- PATIENT NAME: VALENTINE MCNALLY ACCOUNT #: [id number] VTI leaflet 37.6 cm --------- coapt Decel time 273 ms --------- PHT 63 ms --------- Mean grad, D 3.2 mm Hg --------- Peak grad, D 7.0 mm Hg --------- Peak E/A ratio 0.76 --------- MVA, PHT 3.5 cm 2 --------- Pulmonic valve Value Ref ID peak v 1.4 m/sec --------- ID peak grad 8 mm Hg --------- ID v, ED 0.67 m/sec --------- Tricuspid valve Value Ref TR peak v 1.14 m/sec <=2.8 Peak RV-RA 5 mm Hg --------- grad, S Aortic root Value Ref Root diam, ED 2.67 cm --------- MM Conclusions Summary: 1. Left ventricle: The cavity size is dilated. W all thickness is normal. Systolic function is normal. The estimated ejec tion fraction is 50-55%. Wall motion is normal; there are no reg ional wall motion abnormalities. Left ventricular diastolic funct ion parameters are indeterminate. 2. Aortic valve: There is trivial regurgitation. 3. Mitral valve: There is mild regurgitation. 4. Pulmonic valve: There is mild regurgitation. Prepared and electronically signed by Henry Melara MD 11/05/2021 16:48 Electronically Signed by Henry Melara MD on at 1648 PATIENT NAME: VALENTINE MCNALLY ACCOUNT #: [id number] 2021-11-05 13:54:00-00:00 [facility] Infect Disease Consult Note REPORT#:[id number] REPORT STATUS: Signed DATE:11/05/21 TIME: 1354 PATIENT: VALENTINE MCNALLY UNIT #: [id number] ROOM/BED: [place] [address] : 53 AGE: 66 SEX: F ATTEND: Ivan Freitas MD ADM AUTHOR: Odell Hebert MD * ALL edits or amendments must be made on the el [employer]/computer document * History of Present Illness Requesting Clinician: Dr Freitas Reason for consult: COVID Chief complaint: Shortness of breath HPI: 66-year-old female patient known to have history of end-stage renal disease diabetes hypertension she stated she received a Tobi Tobi vaccine many months ago. Comes into the hospital feeling weak cough short of breath she tested positive for Covid fo und to be hypoxic x-ray confirmed a pneumonia hence she was admitted. Onset of symptoms was gradual severity was moderate aggravating factors are none relieving factors n one associated symptoms cough and shortness of breath and weakness. Symptoms s tarted around 10 days ago. History - Adult longitudinal Past medical history: Reports: Diabetes mellitus, Hypertension, Kidney disease/stones. Additional surgical history: AV graft, shoulder surgery, gallbladder Additional family history: not relavent to current illness Alcohol use: Denies EtOH use Drug use: Denies recreational drugs Smoking status: Smoking status for patients 13 years old or old er: Current some day smoker Date last smoked: 11/03/21 Packs per day: 10 Years smoked: 40 Pack years: 400 Medications: Home Medications: Medication Dose/Rte/Freq Days Qty Entered Last Max Daily Dose Reviewed ERGOCALCIFEROL 50,000 UNITS PO Q7D 11/04/21 (VITAMIN D2) 1126 1133 Strength: 50,000 UNIT CAP ISOSORBIDE 60 MG PO DAILY 11/04/21 11/04/21 MONONITRATE SR 1127 1133 (IMDUR) Strength: 60 MG TAB.SR.24H ACETAMINOPHEN/CODEINE 11/04/21 11/04/21 (TYLENOL WITH CODEINE 1128 1133 300-30 MG/12.5ML) Strength: 300 MG-30 MG/12.5 ML (12.5 ML) SOLUTION CARVEDILOL (COREG) 25 MG PO BID MEALS 11/04/21 11/04/21 Strength: 25 MG TAB 1128 1133 FUROSEMIDE (LASIX) 40 MG PO DAILY 11/04/2110/21 Strength: 40 MG TAB 1129 1133 [AMLODIPINE/BESYLATE] 11/04/21 11/04/21 Strength: 1131 1133 ASPIRIN 81 MG PO DAILY 11/04/21 11/04/21 Strength: 81 MG TAB.CHEW 1131 1133 SIMVASTATIN (ZOCOR) 10 MG PO DAILY 11/04/21 Strength: 10 MG TAB 1131 1133 PROMETHAZINE 11/04/21 11/04/21 (PHENERGAN) 1132 1133 Strength: 25 MG TAB Current Hospital Medications: Anti-Infective Agents Sig/Kiah Start time Last Medication Dose Route Stop Time Status Admin Remdesivir 100 MG Q24H 11/06 2100 AC (REMDESIVIR 100MG IV 11/09 215 LYOPHYLIZED) Sodium Chloride 100 ML (SODIUM CHLORIDE 0.9% 100 ML) Remdesivir 200 MG ONCE ONE 11/05 1400 AC (REMDESIVIR 100MG IV 11/05 1459 LYOPHYLIZED) Sodium Chloride 250 ML (SODIUM CHLORIDE 0.9%) Blood Derivatives Sig/Kiah Start time Last Medication Dose Route Stop Time Status Admin Albumin Human 12.5 GM ASDIR PRN 11/04 193 AC (ALBUMINAR-25%) IV 12/05 193 Blood Formation,Coagulation Sig/Kiah Start time Last Medication Dose Route Stop Time Status Admin Heparin Sodium 5,000 UNIT Q8H 11/04 2030 AC (HEPARIN 5000 UNITS/ SUBQ 12/04 2028 1230 ML) Cardiovascular Drugs Sig/Kiah Start time Last Medication Dose Route Stop Time Status Admin Simvastatin 10 MG BEDTIME 11/05 2100 AC (SIMVASTATIN) PO 12/05 205 Hydralazine HCl 10 MG Q4H PRN PRN 11/05 1145 AC 11/05 (APRESOLINE) PO 12/05 1144 1255 Isosorbide 60 MG DAILY 11/05 0900 AC 11/05 Mononitrate PO 12/05 0859 0827 (Imdur 30 mg) Carvedilol 25 MG BID MEALS 11/05 0800 AC 11/05 (COREG) PO 12/05 0759 0826 Lidocaine HCl 0.5 ML ASDIR PRN 11/04 1930 CKD (LIDOCAINE HCL/PF) I-DERMAL 12/05 193 Central Nervous System Agents Sig/Kiah Start time Last Medication Dose Route Stop Time Status Admin Aspirin 81 MG DAILY 11/05 0900 AC 11/05 (ASPIRIN) PO 12/05 0859 0827 Acetaminophen 650 MG Q4H PRN PRN 11/04 2029 AC (TYLENOL) PO 12/04 2028 Electrolytic, Caloric, And Jerica Sig/Kiah Start time Last Medication Dose Route Stop Time Status Admin Sodium Chloride 50 ML Q24H 11/060 AC (SODIUM CHLORIDE IV 11/09 2228 0.9%) Sodium Chloride 50 ML ONCE 11/05 1500 AC (SODIUM CHLORIDE IV 11/05 1511 0.9%) Furosemide 40 MG DAILY 11/05 0900 AC 11/05 (LASIX) PO 12/05 0859 0826 Calcium Gluconate/ 100 ML ONCE ONE 11/05 0100 D C 11/05 Sodium Chloride IV 11/05 0119 0052 (CALCIUM GLUC 2GM/NS 100ML) Dextrose/Water 25 ML ASDIR PRN 11/04 2029 CKD (DEXTROSE 50% W IV 12/04 2028 SYRINGE) Dextrose/Water 50 ML ASDIR PRN 11/04 2029 CKD (DEXTROSE 50% W IV 12/04 2028 SYRINGE) Mannitol 12.5 GM ASDIR PRN 11/04 1929 AC (MANNITOL 25% 12.5GM/ IV 12/05 193 50ML) Sodium Chloride 2,000 ML ASDIR PRN 11/04 1929 A C 11/04 (SODIUM CHLORIDE IV 12/05 0.9%) Sodium Chloride 10 ML ASDIR PRN 11/04 1929 AC 0 11/04 (SODIUM CHLORIDE) IV 12/04 Sodium Chloride 250 ML ASDIR PRN 11/04 1929 AC (SODIUM CHLORIDE IV 12/04 1928 0.9%) Sodium Chloride 0 ASDIR PRN 11/04 1015 DC (SODIUM CHLORIDE) IV 11/05 0913 Eye, Ear, Nose And Throat (Een Sig/Kiah Start time Last Medication Dose Route Stop Time Status Admin Dexamethasone 6 MG DAILY 11/04 2029 AC 11/05 (DECADRON) PO 11/13 0901 0826 Gastrointestinal Drugs Sig/Kiah Start time Last Medication Dose Route Stop Time Status Admin Famotidine 20 MG Q12HR 11/05 2100 AC (PEPCID) IV 12/05 2058 Ondansetron HCl 4 MG Q4H PRN PRN 11/04 2030 AC (ZOFRAN) IV 12/04 2028 Hormones And Synthetic Substit Sig/Kiah Start time Last Medication Dose Route Stop Time Status Admin Insulin Human Lispro 0 AC HS 11/04 2099 AC (HUMALOG) SUBQ 12/04 2058 Glucagon 1 MG ASDIR PRN 11/04 2029 AC (GLUCAGON) IM 12/04 2028 Allergies: Coded Allergies: No Known Allergies (11/04/21) Review of Systems All systems rev neg: except as marked Objective General VS/I O: Last Documented: Result Date Time Pulse Ox 98 11/05 1133 B/P 184/74 11/05 1133 B/P Mean 110.8 11/05 1133 O2 Delivery Room air 11/05 1133 Temp 98.1 11/05 1133 Pulse 70 11/05 1133 Resp 17 11/05 1133 O2 Flow Rate 6 11/05 0830 FiO2 97 11/05 0407 Vital Signs Date Temp Pulse Resp B/P B/P Mean Pulse Ox FiO2 11/04-11/05 98.0-99.0 64-80 16-20 136-184/63-89 88.2-110.8 92-99 97-99 24 hour I O ending at 0700: 11/05 0700 11/04 1900 Intake Total Output Total 3000 Balance -3000 Output, 3000 Hemodialysis Patient 101.5 kg Weight Weight Bed scale Measurement Method PATIENT WEIGHT: Weight (lb): Weight (oz): Weight (kg): 101.500 Physical Exam General appearance: alert, awake, oriented Head/Eyes: atraumatic, clear cornea, EOMI, gordon l conjunctiva/sclera, normal eyelids/periorb, normocephalic, PERRL ENT: normal dentition, normal nose, normal phary nx, normal sinus Neck: full range of motion, non-tender, normal thyroid, supple/no meningismus, no bruit/NL carotids, no JVD, no masses or swell ing, no lymphadenopathy Cardiovascular: regular rate rhythm Respiratory: clear to auscultation, no distress Abdomen: non-tender, soft, n o distention, no guarding, no mass/organomegaly, no rebound Extremities: moves all, normal capillary refill, normal sensory, no edema Results Findings/Data: Laboratory Tests 11/05 11/05 11/05 11/05 11/05 1127 0914 0425 0425 0039 Chemistry Sodium (134 - 147 mEq/L) 142 Potassium (3.4 - 5.0 mEq/L) 3.8 Chloride (100 - 108 mEq/L) 107 Carbon Dioxide (21 - 33 mEq/l) 19 L Anion Gap (0 - 20) 20 BUN (7 - 18 mg/dL) 61 H Creatinine (0.6 - 1.3 mg/dL) 9.3 H Glomerular Filtr Rate (80 - 90) 5.1 L Glucose (70 - 110 mg/dL) 65 L POC Glucose (70 - 110 MG/DL) 132 H 90 82 Hemoglobin A1c (4.8 - 6.0 %A1C) 5.3 Calcium (8.0 - 10.5 mg/dL) 6.1 *L Phosphorus (2.5 - 4.9 MG/DL) 6.3 H Total Bilirubin (0.0 - 1.0 mg/dL) 0.50 AST (15 - 37 IUnit/L) 39 H ALT (30 - 65 IUnit/L) 17 L Total Alk Phosphatase (20 - 125 IUnit/L) 74 Total Protein (6.4 - 8.2 g/dL) 5.8 L Albumin (3.4 - 5.0 g/dL) 2.60 L 11/04 Chemistry Sodium (134 - 147 mEq/L) 137 Potassium (3.4 - 5.0 mEq/L) 5.5 H Chloride (100 - 108 mEq/L) 103 Carbon Dioxide (21 - 33 mEq/l) 16 L Anion Gap (0 - 20) 24 H BUN (7 - 18 mg/dL) 120 H Creatinine (0.6 - 1.3 mg/dL) 13.8 H Glomerular Filtr Rate (80 - 90) 3.2 L Glucose (70 - 110 mg/dL) 93 Lactic Acid (0.4 - 1.9 mmol/L) 0.5 Calcium (8.0 - 10.5 mg/dL) 4.7 *L Ferritin (11.0 - 306.8 ng/mL) 2847.4 H Lactate Dehydrogenase (84 - 246 IUnits/L) 384 H C-Reactive Protein (<10.0 mg/L) 125.0 H Laboratory Tests 11/04 2044 Coagulation D-Dimer (<=500 ng/mlFEU) 2100 *H Laboratory Tests 11/05 Hematology WBC (4.5 - 11.0 x10 3/uL) 4.5 5.4 RBC (3.54 - 5.02 x10 6/uL) 3.31 L 3.63 Hgb (11.0 - 15.0 g/dL) 9.9 L 10.8 L Hct (33.0 - 45.0 %) 31.2 L 34.0 MCV (81.0 - 99.0 fL) 94.3 93.7 MCH (27.0 - 33.0 pg) 29.9 29.8 MCHC (33.0 - 37.0 g/dL) 31.7 L 31.8 L RDW (11.5 - 14.5 %) 15.5 H 15.3 H Plt Count (150 - 400 x10 3/uL) 124 L 132 L MPV (7.0 - 9.0 fL) 11.6 H 10.5 H Neut % (Auto) (56.0 - 77.0 %) 80.2 H 76.9 Lymph % (Auto) (14.0 - 32.0 %) 15.1 18.1 Dakota % (Auto) (4.8 - 9.0 %) 4.0 L 4.6 L Eos % (Auto) (0.3 - 3.7 %) 0.0 L 0.0 L Baso % (Auto) (0.0 - 2.0 %) 0.0 0.2 Neut # (Auto) (2.0 - 7.6 x10 3/uL) 3.57 4.16 Lymph # (Auto) (1.0 - 3.8 x10 3/uL) 0.67 L 0.98 L [place] # (Auto) (0.1 - 0.8 x10 3/uL) 0.18 0.25 Eos # (Auto) (0.0 - 0.2 x10 3/uL) 0.00 0.00 Baso # (Auto) (0.0 - 0.2 x10 3/uL) 0.00 0.01 Abs Immat Gran (auto) (0.00 - 0.03 x10 3/uL) 0. 03 0.01 Add Manual Diff NO NO Immature Gran % (0.0 - 2.0 %) 0.7 0.2 Nucleated RBC % (0 - 0 %) 0.0 0.0 Nucleated RBCs # (Man) (0.0 - 0.1 x10 3/uL) 0.0 0 0.00 Laboratory Tests 11/04 2039 Serology Hepatitis A IgM Ab (NON REACT. INDEX) NON REACT BLAYNE Hep Bs Antigen (NonReactive INDEX) NON REACTIVE Hep B Core IgM Ab (NON REACT. INDEX) NON REACTI VE Hepatitis C Antibody (NON REACT. INDEX) NON FELICITY CTIVE Radiology data: Recent Impressions: ULTRASOUND - DUP VEIN JOSEY 11/05 0234 Report Impression - Status: SIGNED Entered: 11/05/2021 0243 IMPRESSION: No evidence for acute DVT of either lower extrem ity. Impression By: [email or web address] - Rad Noel M.D. CAT SCAN - CT HEAD/BRAIN W/O CONT 11/05 0351 Report Impression - Status: SIGNED Entered: 11/05/2021 0407 IMPRESSION: 1. Mildly limited examination secondary to motio n and scatter artifact. 2. Mild diffuse cerebral atrophy associated with mild old microangiopathic change. 3. No acute intracranial abnormality. 4. Mild chronic sinusitis. Impression By: [email or web address] - Donald Jackson M.D. CAT SCAN - CT ABD PELVIS W/O CONT 11/05 1311 Report Impression - Status: SIGNED Entered: 11/05/2021 1341 IMPRESSION: 1. Extensive bilateral pulmonary opacities with multifocal areas of consolidation compatible with acute pneumonia, v iral versus other infectious and noninfectious etiologies. Commonl y reported imaging features of COVID-19 pneumonia are present. Othe r processes such as influenza pneumonia and organizing pneumonia, as can be seen with drug toxicity and connective tissue disease, can cause a similar imaging pattern. (Reference: Carlos) 2. The stomach is moderately distended with flui d. There is no evidence for bowel obstruction. 3. Colonic diverticulosis. 4. Severe atherosclerosis. 5. Atrophic kidneys containing multiple simple c ortical cyst compatible with end-stage renal disease. 6. Incidental finding of left adrenal thickening , indeterminate by attenuation values.Consider 12 month follow-up a drenal CT. (Reference: Libna) REFERENCES: 1. israel Simmons al., Radiological Society of [place] Expert Consensus Statement on Reporting Chest CT Findin gs Related to COVID-19. Endorsed by the Society of Thoracic Ra diology, the [place] [employer], and RSNA. Publish ed December 13, 2019. 2. [facility]David PIERCE, et al. Management of Incidenta l Adrenal Masses: A White Paper of the ACR Incidental Findings Kushi sergio. J Am Loren Radiol. 2017;14(8):6082-8221. Impression By: Rivas Richardson M.D. Results: labs reviewed, asad l signs reviewed, x-ray personally reviewed, current med profile rev'd Diagnosis, Assessment Plan Free Text DxA P Notes Free text DxA P notes: 1. Severe Covid with pneumonia and hypoxemia * Patient received a single dose of J J vaccine many months ago * Start remdesivir for 5 days * Dexamethasone per recovery trial for 10 days * DVT prophylaxis * C-reactive protein * Oxygen supplementation to keep her oxy gen saturation more than 94% currently she is on 6 L 2. End-stage renal disease on hemodialysis 3. Diabetes mellitus type 2 4. Hypertension at 1357 RPT #:[id number] END OF REPORT 2021-11-05 13:48:00-00:00 [facility]ation Note REPORT#:[id number] REPORT STATUS: Signed DATE:11/05/21 TIME: 1348 PATIENT: VALENTINE MCNALLY UNIT #: [id number] ROOM/BED: [place] [address] : 53 AGE: 66 SEX: F ATTEND: Ivan Freitas MD ADM AUTHOR: Marie Salas MD * ALL edits or amendments must be made on the [facility]/computer document * History of Present Illness Reason for consult: ESRD HPI: Patient is a 66-year-old female with past medica l history of ESRD on hemodialysis Wednesday y Wednesday at [facility] dialysis, hypertension , diabetes type 2 was admitted with shortness of breath and altered mental status. Patient missed dialysis on Wednesday and yesterday as she was feeling sick. She had dialysis done for 2 hours yesterday. Found to be Covid positive. Today breathing better, complains of nausea. History - Adult longitudinal Past medical history: Reports: Diabetes mellitus, Hypertension, Kidney disease/stones. Additional surgical history: AV graft, shoulder surgery, gallbladder Additional family history: not relavent to current illness Alcohol use: Denies EtOH use Drug use: Denies recreational drugs Smoking status: Smoking status for patients 13 years old or old er: Current some day smoker Date last smoked: 11/03/21 Packs per day: 10 Years smoked: 40 Pack years: 400 Allergies: Coded Allergies: No Known Allergies (11/04/21) Review of Systems Additional notes: As per HPI Objective General VS/I O: Vital Signs: Date Time Temp Pulse Resp B/P B/P Pulse O2 O2 F low FiO2 Mean Ox Delivery Rate 11/05 1133 98.1 70 17 184/74 110.8 98 Room air 11/05 0830 Nasal 6 cannula 11/05 0755 98.2 80 16 167/69 101.5 92 Room air 11/05 0407 98.2 75 18 175/72 106.0 97 Nasal 6 9 7 cannula 11/05 0042 99.0 76 18 138/63 88.2 99 Nasal 6 99 cannula 11/04 2300 Nasal 6 cannula 11/04 2144 98.4 72 17 155/89 110.7 98 Room air 98 11/04 2107 98.5 68 18 163/71 95 Nasal 6 cannula 11/04 1755 98.0 64 18 142/64 90 96 Nasal 3 cannula 11/04 1750 Nasal 3 cannula 11/04 1705 98.0 66 18 142/63 89 97 Nasal 3 cannula 11/04 1649 Nasal 3 cannula 11/04 1546 Nasal 3 cannula 11/04 1541 72 20 137/79 98 98 Room air 11/04 1410 Nasal 3 cannula 11/04 1406 78 20 136/71 92 97 Nasal 3 cannula 24 hour I O ending at 0700: 11/05 0700 11/04 1900 Intake Total Output Total 3000 Balance -3000 Output, 3000 Hemodialysis Patient 101.5 kg Weight Weight Bed scale Measurement Method PATIENT WEIGHT: Weight (lb): Weight (oz): Weight (kg): 101.500 Medications: Active Meds + DC'd Last 24 Hrs Sodium Chloride (SODIUM CHLORIDE 0.9%) 50 ML Q24 H IV Remdesivir (REMDESIVIR 100MG LYOPHYLIZED) 100 MG Q24H IV Sodium Chloride (SODIUM CHLORIDE 0.9% 100 ML) 1 00 ML Famotidine (PEPCID) 20 MG Q12HR IV Simvastatin (SIMVASTATIN) 10 MG BEDTIME PO Sodium Chloride (SODIUM CHLORIDE 0.9%) 50 ML ONC E IV Remdesivir (REMDESIVIR 100MG LYOPHYLIZED) 200 MG ONCE ONE IV Sodium Chloride (SODIUM CHLORIDE 0.9%) 250 ML Hydralazine HCl (APRESOLINE) 10 MG Q4H PRN PRN P O Aspirin (ASPIRIN) 81 MG DAILY PO Furosemide (LASIX) 40 MG DAILY PO Isosorbide Mononitrate (Imdur 30 mg) 60 MG DAILY PO Carvedilol (COREG) 25 MG BID MEALS PO Calcium Gluconate/Sodium Chloride (CALCIUM GLUC 2GM/NS 100ML) 100 ML ONCE ONE IV (DC) Insulin Human Lispro (HUMALOG) 0 AC HS SUBQ Acetaminophen (TYLENOL) 650 MG Q4H PRN PRN PO Dexamethasone (DECADRON) 6 MG DAILY PO Dextrose/Water (DEXTROSE 50% W SYRINGE) 25 ML DIR PRN IV (CKD) Dextrose/Water (DEXTROSE 50% W SYRINGE) 50 ML DIR PRN IV (CKD) Glucagon (GLUCAGON) 1 MG ASDIR PRN IM Heparin Sodium (HEPARIN 5000 UNITS/ML) 5,000 UNI T Q8H SUBQ Ondansetron HCl (ZOFRAN) 4 MG Q4H PRN PRN IV Albumin Human (ALBUMINAR-25%) 12.5 GM ASDIR PRN IV Lidocaine HCl (LIDOCAINE HCL/PF) 0.5 ML ASDIR ID N I-DERMAL (CKD) Mannitol (MANNITOL 25% 12.5GM/50ML) 12.5 GM ASDI R PRN IV Sodium Chloride (SODIUM CHLORIDE 0.9%) 2,000 ML ASDIR PRN IV Sodium Chloride (SODIUM CHLORIDE) 10 ML ASDIR ID N IV Sodium Chloride (SODIUM CHLORIDE 0.9%) 250 ML A SDIR PRN IV Sodium Chloride (SODIUM CHLORIDE) 0 ASDIR PRN IV (DC) Physical Exam General appearance: alert, awake, oriented Head/eyes: atraumatic, normocephalic, PERRLA Neck: no JVD, no lymphadenopathy Cardiovascular: normal heart sounds, regular rat e and rhythm, no rub Respiratory: decreased breath sounds Abdomen: non-tender, normal bowel sounds, soft, no rebound Genitourinary: no bladder distention, no flank p ain, no urinary catheter Extremities: no edema, no gangrene Neuro/LIVE HANGER: alert, oriented X 3, CN II-XII intact , normal speech Results Findings/Data: Laboratory Tests 11/05 11/05 11/05 11/05 11/05 1127 0914 0425 0425 0039 Chemistry Sodium (134 - 147 mEq/L) 142 Potassium (3.4 - 5.0 mEq/L) 3.8 Chloride (100 - 108 mEq/L) 107 Carbon Dioxide (21 - 33 mEq/l) 19 L Anion Gap (0 - 20) 20 BUN (7 - 18 mg/dL) 61 H Creatinine (0.6 - 1.3 mg/dL) 9.3 H Glomerular Filtr Rate (80 - 90) 5.1 L Glucose (70 - 110 mg/dL) 65 L POC Glucose (70 - 110 MG/DL) 132 H 90 82 Hemoglobin A1c (4.8 - 6.0 %A1C) 5.3 Calcium (8.0 - 10.5 mg/dL) 6.1 *L Phosphorus (2.5 - 4.9 MG/DL) 6.3 H Total Bilirubin (0.0 - 1.0 mg/dL) 0.50 AST (15 - 37 IUnit/L) 39 H ALT (30 - 65 IUnit/L) 17 L Total Alk Phosphatase (20 - 125 IUnit/L) 74 Total Protein (6.4 - 8.2 g/dL) 5.8 L Albumin (3.4 - 5.0 g/dL) 2.60 L 11/04 Chemistry Sodium (134 - 147 mEq/L) 137 Potassium (3.4 - 5.0 mEq/L) 5.5 H Chloride (100 - 108 mEq/L) 103 Carbon Dioxide (21 - 33 mEq/l) 16 L Anion Gap (0 - 20) 24 H BUN (7 - 18 mg/dL) 120 H Creatinine (0.6 - 1.3 mg/dL) 13.8 H Glomerular Filtr Rate (80 - 90) 3.2 L Glucose (70 - 110 mg/dL) 93 Lactic Acid (0.4 - 1.9 mmol/L) 0.5 Calcium (8.0 - 10.5 mg/dL) 4.7 *L Ferritin (11.0 - 306.8 ng/mL) 2847.4 H Lactate Dehydrogenase (84 - 246 IUnits/L) 384 H C-Reactive Protein (<10.0 mg/L) 125.0 H Laboratory Tests 11/04 2044 Coagulation D-Dimer (<=500 ng/mlFEU) 2100 *H Laboratory Tests 11/055 2045 Hematology WBC (4.5 - 11.0 x10 3/uL) 4.5 5.4 RBC (3.54 - 5.02 x10 6/uL) 3.31 L 3.63 Hgb (11.0 - 15.0 g/dL) 9.9 L 10.8 L Hct (33.0 - 45.0 %) 31.2 L 34.0 MCV (81.0 - 99.0 fL) 94.3 93.7 MCH (27.0 - 33.0 pg) 29.9 29.8 MCHC (33.0 - 37.0 g/dL) 31.7 L 31.8 L RDW (11.5 - 14.5 %) 15.5 H 15.3 H Plt Count (150 - 400 x10 3/uL) 124 L 132 L MPV (7.0 - 9.0 fL) 11.6 H 10.5 H Neut % (Auto) (56.0 - 77.0 %) 80.2 H 76.9 Lymph % (Auto) (14.0 - 32.0 %) 15.1 18.1 [place] % (Auto) (4.8 - 9.0 %) 4.0 L 4.6 L Eos % (Auto) (0.3 - 3.7 %) 0.0 L 0.0 L Baso % (Auto) (0.0 - 2.0 %) 0.0 0.2 Neut # (Auto) (2.0 - 7.6 x10 3/uL) 3.57 4.16 Lymph # (Auto) (1.0 - 3.8 x10 3/uL) 0.67 L 0.98 L [place] # (Auto) (0.1 - 0.8 x10 3/uL) 0.18 0.25 Eos # (Auto) (0.0 - 0.2 x10 3/uL) 0.00 0.00 Baso # (Auto) (0.0 - 0.2 x10 3/uL) 0.00 0.01 Abs Immat Gran (auto) (0.00 - 0.03 x10 3/uL) 0. 03 0.01 Add Manual Diff NO NO Immature Gran % (0.0 - 2.0 %) 0.7 0.2 Nucleated RBC % (0 - 0 %) 0.0 0.0 Nucleated RBCs # (Man) (0.0 - 0.1 x10 3/uL) 0.0 0 0.00 Laboratory Tests 11/04 2039 Serology Hepatitis A IgM Ab (NON REACT. INDEX) NON REACT BLAYNE Hep Bs Antigen (NonReactive INDEX) NON REACTIVE Hep B Core IgM Ab (NON REACT. INDEX) NON REACTI VE Hepatitis C Antibody (NON REACT. INDEX) NON FELICITY CTIVE Radiology data: Recent Impressions: ULTRASOUND - DUP VEIN JOSEY 11/05 0234 Report Impression - Status: SIGNED Entered: 11/05/2021 0243 IMPRESSION: No evidence for acute DVT of either lower extrem ity. Impression By: [email or web address] - Rad Noel M.D. CAT SCAN - CT HEAD/BRAIN W/O CONT 11/05 0351 Report Impression - Status: SIGNED Entered: 11/05/2021 0407 IMPRESSION: 1. Mildly limited examination secondary to motio n and scatter artifact. 2. Mild diffuse cerebral atrophy associated with mild old microangiopathic change. 3. No acute intracranial abnormality. 4. Mild chronic sinusitis. Impression By: [email or web address] - Donald Jackson M.D. CAT SCAN - CT ABD PELVIS W/O CONT 11/05 1311 Report Impression - Status: SIGNED Entered: 11/05/2021 1341 IMPRESSION: 1. Extensive bilateral pulmonary opacities with multifocal areas of consolidation compatible with acute pneumonia, v iral versus other infectious and noninfectious etiologies. Commonl y reported imaging features of COVID-19 pneumonia are present. Othe r processes such as influenza pneumonia and organizing pneumonia, as can be seen with drug toxicity and connective tissue disease, can cause a similar imaging pattern. (Reference: Carlos) 2. The stomach is moderately distended with flui d. There is no evidence for bowel obstruction. 3. Colonic diverticulosis. 4. Severe atherosclerosis. 5. Atrophic kidneys containing multiple simple c ortical cyst compatible with end-stage renal disease. 6. Incidental finding of left adrenal thickening , indeterminate by attenuation values.Consider 12 month follow-up a drenal CT. (Reference: Liban) REFERENCES: 1. Carlos Dent, et al., Radiological Society of [place] Expert Consensus Statement on Reporting Chest CT Findin gs Related to COVID-19. Endorsed by the Society of Thoracic Ra diology, the [place] [employer], and RSNA. Publish ed December 13, 2019. 2. Liban PIERCE, et al. Management of Incidenta l Adrenal Masses: A White Paper of the ACR Incidental Findings Commi ttee. J Am Loren Radiol. 2017;14(8):5670-4145. Impression By: Rivas Richardson M.D. Diagnosis, Assessment Plan Free Text DxA P Notes Free text DxA P notes: 1. ESRD continue with TTS schedule, will do 3 hours of dialysis today and then again in a.m. to get her back on TTS schedule. 2. Hyperkalemia resolved with dialysis 3. Hypocalcemia HD with 3 ca lcium, hyperphosphatemia start PhosLo 2 caps p.o. 3 times daily with meals 4. Anemia of CKD start ÁNGEL if hemoglobin remains less than 10 5. COVID-19 pneumonia ID consulted, started on r emdesivir and steroid 6. Hypertension controlled 7. DM2 per primary team Thank you for the consult Electronically Signed by Marie Salas MD on at 1608 RPT #:[id number] END OF REPORT 2021-11-05 13:07:00-00:00 [facility] Hospitalist Progress Note REPORT#:[id number] REPORT STATUS: Signed DATE:11/05/21 TIME: 1307 PATIENT: VALENTINE MCNALLY UNIT #: [id number] ROOM/BED: [place] [address] : 53 AGE: 66 SEX: F ATTEND: Ivan Freitas MD ADM AUTHOR: Heber Rainey DO * ALL edits or amendments must be made on the el ectronic/computer document * Subjective Comments: Patient seen and examined, having stomach and na usea and vomiting. Denies any new complaints. Discussed case with RN, currentl y on 4 L via nasal cannula Objective General VS/I O: Vital Signs: Date Time Temp Pulse Resp B/P B/P Pulse O2 O2 F low FiO2 Mean Ox Delivery Rate 11/05 1133 98.1 70 17 184/74 110.8 98 Room air 11/05 0830 Nasal 6 cannula 11/05 0755 98.2 80 16 167/69 101.5 92 Room air 11/05 0407 98.2 75 18 175/72 106.0 97 Nasal 6 9 7 cannula 11/05 0042 99.0 76 18 138/63 88.2 99 Nasal 6 99 cannula 11/04 2300 Nasal 6 cannula 11/04 2144 98.4 72 17 155/89 110.7 98 Room air 98 11/04 2107 98.5 68 18 163/71 95 Nasal 6 cannula 11/04 1755 98.0 64 18 142/64 90 96 Nasal 3 cannula 11/04 1750 Nasal 3 cannula 11/04 1705 98.0 66 18 142/63 89 97 Nasal 3 cannula 11/04 1649 Nasal 3 cannula 11/04 1546 Nasal 3 cannula 11/04 1541 72 20 137/79 98 98 Room air 11/04 1410 Nasal 3 cannula 11/04 1406 78 20 136/71 92 97 Nasal 3 cannula 11/04 1318 75 20 137/76 96 98 Nasal 3 cannula 24 hour I O ending at 0700: 11/05 0700 11/04 1900 Intake Total Output Total 3000 Balance -3000 Output, 3000 Hemodialysis Patient 101.5 kg Weight Weight Bed scale Measurement Method PATIENT WEIGHT: Weight (lb): Weight (oz): Weight (kg): 101.500 Medications: Active Meds + DC'd Last 24 Hrs Sodium Chloride (SODIUM CHLORIDE 0.9%) 50 ML Q24 H IV Remdesivir (REMDESIVIR 100MG LYOPHYLIZED) 100 MG Q24H IV Sodium Chloride (SODIUM CHLORIDE 0.9% 100 ML) 1 00 ML Famotidine (PEPCID) 20 MG Q12HR IV Simvastatin (SIMVASTATIN) 10 MG BEDTIME PO Sodium Chloride (SODIUM CHLORIDE 0.9%) 50 ML ONC E IV Remdesivir (REMDESIVIR 100MG LYOPHYLIZED) 200 MG ONCE ONE IV Sodium Chloride (SODIUM CHLORIDE 0.9%) 250 ML Hydralazine HCl (APRESOLINE) 10 MG Q4H PRN PRN P O Aspirin (ASPIRIN) 81 MG DAILY PO Furosemide (LASIX) 40 MG DAILY PO Isosorbide Mononitrate (Imdur 30 mg) 60 MG DAILY PO Carvedilol (COREG) 25 MG BID MEALS PO Calcium Gluconate/Sodium Chloride (CALCIUM GLUC 2GM/NS 100ML) 100 ML ONCE ONE IV (DC) Insulin Human Lispro (HUMALOG) 0 AC HS SUBQ Acetaminophen (TYLENOL) 650 MG Q4H PRN PRN PO Dexamethasone (DECADRON) 6 MG DAILY PO Dextrose/Water (DEXTROSE 50% W SYRINGE) 25 ML DIR PRN IV (CKD) Dextrose/Water (DEXTROSE 50% W SYRINGE) 50 ML DIR PRN IV (CKD) Glucagon (GLUCAGON) 1 MG ASDIR PRN IM Heparin Sodium (HEPARIN 5000 UNITS/ML) 5,000 UNI T Q8H SUBQ Ondansetron HCl (ZOFRAN) 4 MG Q4H PRN PRN IV Albumin Human (ALBUMINAR-25%) 12.5 GM ASDIR PRN IV Lidocaine HCl (LIDOCAINE HCL/PF) 0.5 ML ASDIR ID N I-DERMAL (CKD) Mannitol (MANNITOL 25% 12.5GM/50ML) 12.5 GM ASDI R PRN IV Sodium Chloride (SODIUM CHLORIDE 0.9%) 2,000 ML ASDIR PRN IV Sodium Chloride (SODIUM CHLORIDE) 10 ML ASDIR ID N IV Sodium Chloride (SODIUM CHLORIDE 0.9%) 250 ML DIR PRN IV Sodium Chloride (SODIUM CHLORIDE) 0 ASDIR PRN IV (DC) Physical Exam General appearance: alert, awake, oriented Head/Eyes: atraumatic, normocephalic ENT: normal ear left, normal ear right, normal n ose Neck: full range of motion, no JVD Cardiovascular: normal heart sounds, regular rat e rhythm Respiratory: clear to auscultation, symmetric ex pansion, no distress Abdomen: non-tender, normal bowel sounds, soft, no distention Extremities: no clubbing, no cyanosis, no edema Neuro/LIVE HANGER: non focal, alert and oriented to hers elf, doesn't know the name of the hospital Skin: dry, no rash Results Findings/Data: Laboratory Tests 11/05 11/05 11/05 11/05 11/05 1127 0914 0425 0425 0039 Chemistry Sodium (134 - 147 mEq/L) 142 Potassium (3.4 - 5.0 mEq/L) 3.8 Chloride (100 - 108 mEq/L) 107 Carbon Dioxide (21 - 33 mEq/l) 19 L Anion Gap (0 - 20) 20 BUN (7 - 18 mg/dL) 61 H Creatinine (0.6 - 1.3 mg/dL) 9.3 H Glomerular Filtr Rate (80 - 90) 5.1 L Glucose (70 - 110 mg/dL) 65 L POC Glucose (70 - 110 MG/DL) 132 H 90 82 Hemoglobin A1c (4.8 - 6.0 %A1C) 5.3 Calcium (8.0 - 10.5 mg/dL) 6.1 *L Phosphorus (2.5 - 4.9 MG/DL) 6.3 H Total Bilirubin (0.0 - 1.0 mg/dL) 0.50 AST (15 - 37 IUnit/L) 39 H ALT (30 - 65 IUnit/L) 17 L Total Alk Phosphatase (20 - 125 IUnit/L) 74 Total Protein (6.4 - 8.2 g/dL) 5.8 L Albumin (3.4 - 5.0 g/dL) 2.60 L 11/04 Chemistry Sodium (134 - 147 mEq/L) 137 Potassium (3.4 - 5.0 mEq/L) 5.5 H Chloride (100 - 108 mEq/L) 103 Carbon Dioxide (21 - 33 mEq/l) 16 L Anion Gap (0 - 20) 24 H BUN (7 - 18 mg/dL) 120 H Creatinine (0.6 - 1.3 mg/dL) 13.8 H Glomerular Filtr Rate (80 - 90) 3.2 L Glucose (70 - 110 mg/dL) 93 Lactic Acid (0.4 - 1.9 mmol/L) 0.5 Calcium (8.0 - 10.5 mg/dL) 4.7 *L Ferritin (11.0 - 306.8 ng/mL) 2847.4 H Lactate Dehydrogenase (84 - 246 IUnits/L) 384 H C-Reactive Protein (<10.0 mg/L) 125.0 H Laboratory Tests 11/04 2044 Coagulation D-Dimer (<=500 ng/mlFEU) 2100 *H Laboratory Tests 11/05 Hematology WBC (4.5 - 11.0 x10 3/uL) 4.5 5.4 RBC (3.54 - 5.02 x10 6/uL) 3.31 L 3.63 Hgb (11.0 - 15.0 g/dL) 9.9 L 10.8 L Hct (33.0 - 45.0 %) 31.2 L 34.0 MCV (81.0 - 99.0 fL) 94.3 93.7 MCH (27.0 - 33.0 pg) 29.9 29.8 MCHC (33.0 - 37.0 g/dL) 31.7 L 31.8 L RDW (11.5 - 14.5 %) 15.5 H 15.3 H Plt Count (150 - 400 x10 3/uL) 124 L 132 L MPV (7.0 - 9.0 fL) 11.6 H 10.5 H Neut % (Auto) (56.0 - 77.0 %) 80.2 H 76.9 Lymph % (Auto) (14.0 - 32.0 %) 15.1 18.1 Dakota % (Auto) (4.8 - 9.0 %) 4.0 L 4.6 L Eos % (Auto) (0.3 - 3.7 %) 0.0 L 0.0 L Baso % (Auto) (0.0 - 2.0 %) 0.0 0.2 Neut # (Auto) (2.0 - 7.6 x10 3/uL) 3.57 4.16 Lymph # (Auto) (1.0 - 3.8 x10 3/uL) 0.67 L 0.9 8 L [place] # (Auto) (0.1 - 0.8 x10 3/uL) 0.18 0.25 Eos # (Auto) (0.0 - 0.2 x10 3/uL) 0.00 0.00 Baso # (Auto) (0.0 - 0.2 x10 3/uL) 0.00 0.01 Abs Immat Gran (auto) (0.00 - 0.03 x10 3/uL) 0. 03 0.01 Add Manual Diff NO NO Immature Gran % (0.0 - 2.0 %) 0.7 0.2 Nucleated RBC % (0 - 0 %) 0.0 0.0 Nucleated RBCs # (Man) (0.0 - 0.1 x10 3/uL) 0.0 0 0.00 Laboratory Tests 11/04 2039 Serology Hepatitis A IgM Ab (NON REACT. INDEX) NON REACT BLAYNE Hep Bs Antigen (NonReactive INDEX) NON REACTIVE Hep B Core IgM Ab (NON REACT. INDEX) NON REACTI VE Hepatitis C Antibody (NON REACT. INDEX) NON FELICITY CTIVE Radiology data: Recent Impressions: ULTRASOUND - DUP VEIN JOSEY 11/05 0234 Report Impression - Status: SIGNED Entered: 11/05/2021 0243 IMPRESSION: No evidence for acute DVT of either lower extrem ity. Impression By: [email or web address] - Rad Noel M.D. CAT SCAN - CT HEAD/BRAIN W/O CONT 11/05 0351 Report Impression - Status: SIGNED Entered: 11/05/2021 0407 IMPRESSION: 1. Mildly limited examination secondary to motio n and scatter artifact. 2. Mild diffuse cerebral atrophy associated with mild old microangiopathic change. 3. No acute intracranial abnormality. 4. Mild chronic sinusitis. Impression By: [email or web address] - Donald Jackson M.D. Diagnosis, Assessment Plan Problem List/A P: 1. COVID 2. Hyperkalemia 3. Hypoxia 4. Elevated troponin I level 5. HTN (hypertension) 6. Diabetes 7. Metabolic encephalopathy Free Text DxA P Notes Free text DxA P notes: 66 y/o with tobacco abuse, ESRD, HTN, DM, heart disease who presents with AMS and COVID+ with hypoxia. COVID 19 pneumonia * pulmonary/ID * on DVT prophylaxis * Remdesivir started, continue Decadron * pt sister states pt IS VACCINATED with j/j vac cine x2. Hyperkalemia * HD now, nephrology following Hypoxia * abnormal CXR * pulmonary to see.h/o smoking. Elevated troponin I level * echo/cards following HTN (hypertension) * restart BP meds, patient l ost IV access and as needed antihypertensive started * BP also likely improved post hemodialysis Diabetes * Continue SSI. Metabolic encephalopathy * CT head/PT/OT eval. probably multifactorial fr om all above. Pt sister was concerned about a UTI. (pt makes urine). Follow- up UA and culture. Nausea and vomiting * Denies any abdominal pain currently, check CT of the abdomen pelvis * Gastroenterology evaluation End-stage renal disease * HD TTS per nephrology, plan for HD today DVT prophylaxis: Heparin subcutaneous Quality: Gen Med Crit Care VTE Prophylaxis VTE prophylaxis initiated: yes Current Medications Current medication review: I attest that the foregoing medication list in t he medical record is true, accurate, and complete to the best of my knowled ge. Advanced Care Plan 65 or Older Discussed with: surrogate decis. maker Discussion included: living will Electronically Signed by Heber Rainey DO on 10/21 03/11 at 1629 [facility] #:[id number] END OF REPORT 2021-11-05 12:38:00-00:00 [id number] [place] [id number] PATIENT NAME: VALENTINE MCNALLY ADMIT DATE: ACCOUNT NO: [id number] ROOM NO: [id number] AGE: 66 REPORT TYPE: CONSULTATION REPORT SEX: F ADMITTING PHYSICIAN:Ivan Freitas MD ATTENDING PHYSICIAN:Ivan Freitas MD CONSULTATION DATE: 11/05/2021 CONSULTING PHYSICIAN: Heber Dunbar MD GASTROENTEROLOGY CONSULTATION REASON FOR CONSULTATION: Nausea and vomiting. HISTORY OF PRESENT ILLNESS: The patient is a 66- year-old -H[place] female with multiple medical problems including end-stage renal disease, on hemodialysis related to hypertensive nep hrosclerosis and diabetic nephropathy, coronary artery disease, chronic tobacco use, wh o was admitted to [facility] after presenting to [facility] with a 2 to 3-day history of weakness, fatigue a ssociated with falls from standing position, as well as shortness of breath, fevers, and chills. Testing revealed that the patient was positive for COVID -19. A chest x-ray revealed bilateral infiltrates. The patient was subsequen tly transferred as mentioned above. The patient ate at [employer] this morning and developed some nausea and vomiting of that food. Currently, she is not exp eriencing any nausea or vomiting. She has been tolerating water without any difficulty. She denies any abdominal pain, diarrhea, constipation, melena, hematochezia, or hematemesis. Of note, she missed her dialysis for 2 sessions and her BUN was 120 and then down to 60. PAST MEDICAL HISTORY: As above. HOME MEDICATIONS: See MAR list. PAST SURGICAL HISTORY: Includes: 1. Arteriovenous graft for dialysis. 2. Shoulder surgery. 3. Cholecystectomy. FAMILY HISTORY: Noncontributory. SOCIAL HISTORY: The patient lives in [facility]. She has a [id number] history of tobacco. Denies alcohol or illicit dr ug use. REVIEW OF SYSTEMS: As per HPI. PHYSICAL EXAMINATION: PATIENT NAME: VALENTINE MCNALLY ACCOUNT #: [id number] VITAL SIGNS: Pulse 70, blood pressure 184/74; re spirations 17; temperature 36.7, T-max 37.2. GENERAL: The patient is alert and oriented x3, i n no apparent distress, well nourished. HEENT: Normocephalic and atraumatic. Anicteric s clerae. NECK: Supple. No masses. CARDIOVASCULAR: Regular rate and rhythm. No rigo s murmurs. LUNGS: Show coarse breath sounds in anterolatera l chavez. ABDOMEN: Soft, obese, nontender, and nondistende d. No guarding. No rebound. No masses. Normal bowel sounds throughout. EXTREMITIES: Show trace pedal edema. LABORATORY DATA: White blood count is 4.5, hemoglobin 9.9, hematocrit 31.2, MCV 94.3, RDW 15.5, platelets 124. D-dimer 2100. Sod ium 142, potassium 3.8, chloride 107, bicarbonate 19, BUN 61, creatinine 9.3, and glucose 65, calcium 6.1, phosphorus 6.3. Total bilirubin 0.5, alkali ne phosphatase is 74, AST 39, ALT 17, albumin 2.6. Urinalysis is pending. Acut e viral hepatitis panel is negative. ASSESSMENT: Nausea and vomit ing, which is likely multifactorial including acute COVID infection, uremia, and polypharmacy for he r acute infection. PLAN: I recommend symptomatic treatment includin g initiation of ondansetron 4 mg IV q. 8 hours as needed f or nausea, place the patient on a clear liquid diet for now and advance as tolerated. I would expect that the patient's symptoms will improve as her COVID infection improves. No further testing is warranted at this time. Dictated By: Heber Dunbar MD WT: CON:GLOGAN/STEVEN/NTS Conf#: [id number]/DID#: [id number] Authenticated by Heber Dunbar MD On 022 12:33:42 PM at 1233 PATIENT NAME: VALENTINE MCNALLY ACCOUNT #: [id number] 2021-11-05 12:23:00-00:00 [facility] ([facility]) Pulmonary Consultation Note REPORT#:[id number] REPORT STATUS: Signed DATE:11/05/21 TIME: 1223 PATIENT: VALENTINE MCNALLY UNIT #: [id number] ROOM/BED: [place] [address] : 53 AGE: 66 SEX: F ATTEND: Ivan Freitas MD ADM AUTHOR: Shanika Vasquez MD * ALL edits or amendments must be made on the [employer]/computer document * History of Present Illness HPI Requesting clinician: Dr Freitas Reason for consult: covid Chief complaint: COVID HPI: Ms Mcnally is a 66 y/o woman with hx of ESRD on HD , DM, HTN and CAD who was recently missed 2 HD session and has been feelin g unwell for the past 4 days. She came to ER due to weakness. She was found to be COVID positive with CXR showing COVID 19 PNA, started on steroids. Uncle ar of vaccination status, per notes she has had the J/J vaccine. History - Adult longitudinal Past medical history: Reports: Diabetes mellitus, Hypertension, Kidney disease/stones. Additional surgical history: AV graft, shoulder surgery, gallbladder Additional family history: not relavent to current illness Alcohol use: Denies EtOH use Drug use: Denies recreational drugs Smoking status: Smoking status for patients 13 years old or old er: Current some day smoker Date last smoked: 11/03/21 Packs per day: 10 Years smoked: 40 Pack years: 400 Allergies: Coded Allergies: No Known Allergies (11/04/21) Review of Systems Constitutional: Reports: generalized weakness. Denies: lethargy. Respiratory: Denies: PAN (dyspnea on exer tion), hemoptysis, pleuritic pain, productive cough (sputum), SOB, wheezing. Cardiovascular: Denies: chest pain, edema. GI: Denies: abdominal pain, nausea, vomiting. Heme: Denies: bleeding. Neuro: Denies: headache, seizure. Objective Physical Exam Vitals: Last Documented: Result Date Time Pulse Ox 98 11/05 1133 B/P 184/74 11/05 1133 B/P Mean 110.8 11/05 1133 O2 Delivery Room air 11/05 1133 Temp 36.7 11/05 1133 Pulse 70 11/05 1133 Resp 17 11/05 1133 O2 Flow Rate 6 11/05 0830 FiO2 97 11/05 0407 General appearance: alert, awake, no acu te distress, pleasant, conversational, no respiratory distress Head/eyes: atraumatic, normocephalic, PERRL Neck: full range of motion, non-tender Respiratory/chest: on oxygen, aerating well, hany ar to auscultation, symmetric expansion, no distress, no tenderness Abdomen: soft, non-tender, no CVA tenderness, no distention Extremities: no cyanosis, no edema Musculoskeletal: no muscle spasm Neuro/LIVE HANGER: alert Results Findings/Data: Laboratory Tests 11/05/21424: [Embedded Image Not Available] 11/04/212044: [Embedded Image Not Available] Laboratory Tests 11/05 11/05 11/05 11/05 11/05 1127 0914 0425 0425 0039 Chemistry Sodium (134 - 147 mEq/L) 142 Potassium (3.4 - 5.0 mEq/L) 3.8 Chloride (100 - 108 mEq/L) 107 Carbon Dioxide (21 - 33 mEq/l) 19 L Anion Gap (0 - 20) 20 BUN (7 - 18 mg/dL) 61 H Creatinine (0.6 - 1.3 mg/dL) 9.3 H Glomerular Filtr Rate (80 - 90) 5.1 L Glucose (70 - 110 mg/dL) 65 L POC Glucose (70 - 110 MG/DL) 132 H 90 82 Hemoglobin A1c (4.8 - 6.0 %A1C) 5.3 Calcium (8.0 - 10.5 mg/dL) 6.1 *L Phosphorus (2.5 - 4.9 MG/DL) 6.3 H Total Bilirubin (0.0 - 1.0 mg/dL) 0.50 AST (15 - 37 IUnit/L) 39 H ALT (30 - 65 IUnit/L) 17 L Total Alk Phosphatase (20 - 125 IUnit/L) 74 Total Protein (6.4 - 8.2 g/dL) 5.8 L Albumin (3.4 - 5.0 g/dL) 2.60 L 11/04 Chemistry Sodium (134 - 147 mEq/L) 137 Potassium (3.4 - 5.0 mEq/L) 5.5 H Chloride (100 - 108 mEq/L) 103 Carbon Dioxide (21 - 33 mEq/l) 16 L Anion Gap (0 - 20) 24 H BUN (7 - 18 mg/dL) 120 H Creatinine (0.6 - 1.3 mg/dL) 13.8 H Glomerular Filtr Rate (80 - 90) 3.2 L Glucose (70 - 110 mg/dL) 93 Lactic Acid (0.4 - 1.9 mmol/L) 0.5 Calcium (8.0 - 10.5 mg/dL) 4.7 *L Ferritin (11.0 - 306.8 ng/mL) 2847.4 H Lactate Dehydrogenase (84 - 246 IUnits/L) 384 H C-Reactive Protein (<10.0 mg/L) 125.0 H Laboratory Tests 11/04 2044 Coagulation D-Dimer (<=500 ng/mlFEU) 2100 *H Laboratory Tests 11/055 5 Hematology WBC (4.5 - 11.0 x10 3/uL) 4.5 5.4 RBC (3.54 - 5.02 x10 6/uL) 3.31 L 3.63 Hgb (11.0 - 15.0 g/dL) 9.9 L 10.8 L Hct (33.0 - 45.0 %) 31.2 L 34.0 MCV (81.0 - 99.0 fL) 94.3 93.7 MCH (27.0 - 33.0 pg) 29.9 29.8 MCHC (33.0 - 37.0 g/dL) 31.7 L 31.8 L RDW (11.5 - 14.5 %) 15.5 H 15.3 H Plt Count (150 - 400 x10 3/uL) 124 L 132 L MPV (7.0 - 9.0 fL) 11.6 H 10.5 H Neut % (Auto) (56.0 - 77.0 %) 80.2 H 76.9 Lymph % (Auto) (14.0 - 32.0 %) 15.1 18.1 [place] % (Auto) (4.8 - 9.0 %) 4.0 L 4.6 L Eos % (Auto) (0.3 - 3.7 %) 0.0 L 0.0 L Baso % (Auto) (0.0 - 2.0 %) 0.0 0.2 Neut # (Auto) (2.0 - 7.6 x10 3/uL) 3.57 4.16 Lymph # (Auto) (1.0 - 3.8 x10 3/uL) 0.67 L 0.98 L [place] # (Auto) (0.1 - 0.8 x10 3/uL) 0.18 0.25 Eos # (Auto) (0.0 - 0.2 x10 3/uL) 0.00 0.00 Baso # (Auto) (0.0 - 0.2 x10 3/uL) 0.00 0.01 Abs Immat Gran (auto) (0.00 - 0.03 x10 3/uL) 0. 03 0.01 Add Manual Diff NO NO Immature Gran % (0.0 - 2.0 %) 0.7 0.2 Nucleated RBC % (0 - 0 %) 0.0 0.0 Nucleated RBCs # (Man) (0.0 - 0.1 x10 3/uL) 0.0 0 0.00 Laboratory Tests 11/04 2039 Serology Hepatitis A IgM Ab (NON REACT. INDEX) NON REACT BLAYNE Hep Bs Antigen (NonReactive INDEX) NON REACTIVE Hep B Core IgM Ab (NON REACT. INDEX) NON REACTI VE Hepatitis C Antibody (NON REACT. INDEX) NON FELICITY CTIVE Radiology Data: Recent Impressions: ULTRASOUND - DUP VEIN JOSEY 11/05 7664 Report Impression - Status: SIGNED Entered: 11/05/2021 2013 IMPRESSION: No evidence for acute DVT of either lower extrem ity. Impression By: CharAMSymone Noel M.D. CAT SCAN - CT HEAD/BRAIN W/O CONT 11/05 0351 Report Impression - Status: SIGNED Entered: 11/05/2021 0407 IMPRESSION: 1. Mildly limited examination secondary to motio n and scatter artifact. 2. Mild diffuse cerebral atrophy associated with mild old microangiopathic change. 3. No acute intracranial abnormality. 4. Mild chronic sinusitis. Impression By: Casie Jackson M.D. Diagnosis, Assessment Plan Free Text DxA P Notes Free Text DxA P Notes: Impressions: Acute hypoxemic respiratory failur COVID 19 infecction ESRD on HD DM CAD Recommendations: CXR reviewed extensive bilateral pulmonary opaci ties wit superimposed edema On oxygen support now at 4 L C/w decadron Add remdesevir she is with in the window Add IS C/w bronchodilators ESRD on HD per renal DVT ppx Full Code Electronically Signed by Shanika Vasquez MD o n 11/05/21 at 1240 RPT #:[id number] END OF REPORT 2021-11-05 11:48:00-00:00 [facility] ([facility]) Clinical Note REPORT#:[id number] REPORT STATUS: Signed DATE:11/05/21 TIME: 1148 PATIENT: VALENTINE MCNALLY UNIT #: [id number] ROOM/BED: [place] [address] : 53 AGE: 66 SEX: F ATTEND: Ivan Freitas MD ADM AUTHOR: Odell Hebert MD * ALL edits or amendments must be made on the el [employer]/computer document * Clinical Note Note: pt seen,examined, note to follow at 0623 RPT #:[id number] END OF REPORT 2021-11-05 08:38:00-00:00 [facility] ([facility]) Cardiology Progress Note REPORT#:[id number] REPORT STATUS: Signed DATE:11/05/21 TIME: 0838 PATIENT: VALENTINE MCNALLY UNIT #: [id number] ROOM/BED: [place] [address] : 53 AGE: 66 SEX: F ATTEND: Ivan Freitas MD ADM AUTHOR: Karyn Oneill NP * ALL edits or amendments must be made on the el [employer]/computer document * Subjective Chief complaint: Doing okay Patient reports: No: chest pain, shortness of breath. Nursing reports: No: complaints. Comments: Patient is awake alert oriented to person and pl maritza, not situation. She is on 5 L nasal cannula, wet cough. RN reports patient confused last night, pulled o ut IV, vomiting this morning. Objective General VS/I O: 24 hour I O ending at 0700: 11/04 1900 11/05 0700 Intake Total Output Total 3000 Balance -3000 Output, 3000 Hemodialysis Patient 101.5 kg Weight Weight Bed scale Measurement Method Vital Signs: Date Time Temp Pulse Resp B/P B/P Pulse O2 O2 F low FiO2 Mean Ox Delivery Rate 11/05 1133 98.1 70 17 184/74 110.8 98 Room air 11/05 0830 Nasal 6 cannula 11/05 0755 98.2 80 16 167/69 101.5 92 Room air 11/05 0407 98.2 75 18 175/72 106.0 97 Nasal 6 9 7 cannula 11/05 0042 99.0 76 18 138/63 88.2 99 Nasal 6 99 cannula 11/04 2300 Nasal 6 cannula 11/04 2144 98.4 72 17 155/89 110.7 98 Room air 98 11/04 2107 98.5 68 18 163/71 95 Nasal 6 cannula 11/04 1755 98.0 64 18 142/64 90 96 Nasal 3 cannula 11/04 1750 Nasal 3 cannula 11/04 1705 98.0 66 18 142/63 89 97 Nasal 3 cannula 11/04 1649 Nasal 3 cannula 11/04 1546 Nasal 3 cannula 11/04 1541 72 20 137/79 98 98 Room air 11/04 1410 Nasal 3 cannula 11/04 1406 78 20 136/71 92 97 Nasal 3 cannula 11/04 1318 75 20 137/76 96 98 Nasal 3 cannula 11/04 1258 98.1 74 20 119/72 87 96 2 PATIENT WEIGHT: Weight (lb): Weight (oz): Weight (kg): 101.500 Medications: Active Meds + DC'd Last 24 Hrs Sodium Chloride (SODIUM CHLORIDE 0.9%) 50 ML Q24 H IV Remdesivir (REMDESIVIR 100MG LYOPHYLIZED) 100 MG Q24H IV (UNV) Sodium Chloride (SODIUM CHLORIDE 0.9% 100 ML) 1 00 ML Famotidine (PEPCID) 20 MG Q12HR IV Simvastatin (SIMVASTATIN) 10 MG BEDTIME PO Sodium Chloride (SODIUM CHLORIDE 0.9%) 50 ML ONC E IV Remdesivir (REMDESIVIR 100MG LYOPHYLIZED) 200 MG ONCE ONE IV (PEND) Sodium Chloride (SODIUM CHLORIDE 0.9%) 250 ML Hydralazine HCl (APRESOLINE) 10 MG Q4H PRN PRN P O Aspirin (ASPIRIN) 81 MG DAILY PO Furosemide (LASIX) 40 MG DAILY PO Isosorbide Mononitrate (Imdur 30 mg) 60 MG DAILY PO Carvedilol (COREG) 25 MG BID MEALS PO Calcium Gluconate/Sodium Chloride (CALCIUM GLUC 2GM/NS 100ML) 100 ML ONCE ONE IV (DC) Insulin Human Lispro (HUMALOG) 0 AC HS SUBQ Acetaminophen (TYLENOL) 650 MG Q4H PRN PRN PO Dexamethasone (DECADRON) 6 MG DAILY PO Dextrose/Water (DEXTROSE 50% W SYRINGE) 25 ML DIR PRN IV (CKD) Dextrose/Water (DEXTROSE 50% W SYRINGE) 50 ML DIR PRN IV (CKD) Glucagon (GLUCAGON) 1 MG ASDIR PRN IM Heparin Sodium (HEPARIN 5000 UNITS/ML) 5,000 UNI T Q8H SUBQ Ondansetron HCl (ZOFRAN) 4 MG Q4H PRN PRN IV Albumin Human (ALBUMINAR-25%) 12.5 GM ASDIR PRN IV Lidocaine HCl (LIDOCAINE HCL/PF) 0.5 ML ASDIR ID N I-DERMAL (CKD) Mannitol (MANNITOL 25% 12.5GM/50ML) 12.5 GM ASDI R PRN IV Sodium Chloride (SODIUM CHLORIDE 0.9%) 2,000 ML ASDIR PRN IV Sodium Chloride (SODIUM CHLORIDE) 10 ML ASDIR ID N IV Sodium Chloride (SODIUM CHLORIDE 0.9%) 250 ML DIR PRN IV Sodium Chloride (SODIUM CHLORIDE) 0 ASDIR PRN IV (DC) Physical Exam General appearance: alert, awake, no acute distr ess, no respiratory distress Head/Eyes: atraumatic, clear cornea, PERRLA ENT: moist mucosal membranes Neck: full range of motion, non-tender, no JVD Cardiovascular: CV assessment: no murmur Respiratory: decreased breath sounds, on oxygen (5L), no distress Abdomen: soft, non-tender, normal bowel sounds Genitourinary: no giraldo Upper extremity: UE assessment: normal capillary refill, normal temperature, no edema Lower extremity: LE assessment: normal temperature, no edema Neuro/LIVE HANGER: normal speech Results Findings/Data: Laboratory Tests 11/049 0425 Chemistry Sodium (134 - 147 mEq/L) 137 142 Potassium (3.4 - 5.0 mEq/L) 5.5 H 3.8 Chloride (100 - 108 mEq/L) 103 107 Carbon Dioxide (21 - 33 mEq/l) 16 L 19 L Anion Gap (0 - 20) 24 H 20 BUN (7 - 18 mg/dL) 120 H 61 H Creatinine (0.6 - 1.3 mg/dL) 13.8 H 9.3 H Glomerular Filtr Rate (80 - 90) 3.2 L 5.1 L Glucose (70 - 110 mg/dL) 93 65 L POC Glucose (70 - 110 MG/DL) 82 Lactic Acid (0.4 - 1.9 mmol/L) 0.5 Calcium (8.0 - 10.5 mg/dL) 4.7 *L 6.1 *L Phosphorus (2.5 - 4.9 MG/DL) 6.3 H Ferritin (11.0 - 306.8 ng/mL) 2847.4 H Total Bilirubin (0.0 - 1.0 mg/dL) 0.50 AST (15 - 37 IUnit/L) 39 H ALT (30 - 65 IUnit/L) 17 L Total Alk Phosphatase (20 - 125 74 IUnit/L) Lactate Dehydrogenase (84 - 246 384 H IUnits/L) C-Reactive Protein (<10.0 mg/L) 125.0 H Total Protein (6.4 - 8.2 g/dL) 5.8 L Albumin (3.4 - 5.0 g/dL) 2.60 L 11/05 11/05 11/05 0425 0914 1127 Chemistry POC Glucose (70 - 110 MG/DL) 90 132 H Hemoglobin A1c (4.8 - 6.0 %A1C) 5.3 Laboratory Tests 11/04 2044 Coagulation D-Dimer (<=500 ng/mlFEU) 2100 *H Laboratory Tests 11/04 0425 Hematology WBC (4.5 - 11.0 x10 3/uL) 5.4 4.5 RBC (3.54 - 5.02 x10 6/uL) 3.63 3.31 L Hgb (11.0 - 15.0 g/dL) 10.8 L 9.9 L Hct (33.0 - 45.0 %) 34.0 31.2 L MCV (81.0 - 99.0 fL) 93.7 94.3 MCH (27.0 - 33.0 pg) 29.8 29.9 MCHC (33.0 - 37.0 g/dL) 31.8 L 31.7 L RDW (11.5 - 14.5 %) 15.3 H 15.5 H Plt Count (150 - 400 x10 3/uL) 132 L 124 L MPV (7.0 - 9.0 fL) 10.5 H 11.6 H Neut % (Auto) (56.0 - 77.0 %) 76.9 80.2 H Lymph % (Auto) (14.0 - 32.0 %) 18.1 15.1 [place] % (Auto) (4.8 - 9.0 %) 4.6 L 4.0 L Eos % (Auto) (0.3 - 3.7 %) 0.0 L 0.0 L Baso % (Auto) (0.0 - 2.0 %) 0.2 0.0 Neut # (Auto) (2.0 - 7.6 x10 3/uL) 4.16 3.57 Lymph # (Auto) (1.0 - 3.8 x10 3/uL) 0.98 L 0.67 L [place] # (Auto) (0.1 - 0.8 x10 3/uL) 0.25 0.18 Eos # (Auto) (0.0 - 0.2 x10 3/uL) 0.00 0.00 Baso # (Auto) (0.0 - 0.2 x10 3/uL) 0.01 0.00 Abs Immat Gran (auto) (0.00 - 0.03 x10 3/uL) 0. 01 0.03 Add Manual Diff NO NO Immature Gran % (0.0 - 2.0 %) 0.2 0.7 Nucleated RBC % (0 - 0 %) 0.0 0.0 Nucleated RBCs # (Man) (0.0 - 0.1 x10 3/uL) 0.0 0 0.00 Laboratory Tests 11/04 2039 Serology Hepatitis A IgM Ab (NON REACT. INDEX) NON REACT BLAYNE Hep Bs Antigen (NonReactive INDEX) NON REACTIVE Hep B Core IgM Ab (NON REACT. INDEX) NON REACT BLAYNE Hepatitis C Antibody (NON REACT. INDEX) NON FELICITY CTIVE Radiology data: Recent Impressions: ULTRASOUND - DUP VEIN JOSEY 11/05 0234 Report Impression - Status: SIGNED Entered: 11/05/2021 0243 IMPRESSION: No evidence for acute DVT of either lower extrem ity. Impression By: [email or web address] - Rad Noel M.D. CAT SCAN - CT HEAD/BRAIN W/O CONT 11/05 0351 Report Impression - Status: SIGNED Entered: 11/05/2021 0407 IMPRESSION: 1. Mildly limited examination secondary to motio n and scatter artifact. 2. Mild diffuse cerebral atrophy associated with mild old microangiopathic change. 3. No acute intracranial abnormality. 4. Mild chronic sinusitis. Impression By: [email or web address] - Donald Jackson M.D. Results: labs reviewed, vital signs reviewed, vi ofe signs stable, current med profile rev'd Diagnosis, Assessment Plan Plan discussed with: patient, nurse Free Text DxA P Notes Free Text DxA P Notes: 66 y/o F w/ PMHx: End-stage renal diseas e on dialysis, hypertension, diabetic. Erp Project Manager is consulted for elevated troponin. -Elevated troponin, mild. High sensitive troponin 81. LDL 54.6 Will do nuclear stress test after recover from Covid. Echocardiogram result pending. - Hypertension. On nitrate and beta-shamir. - End-stage renal disease. On dialysis. - COVID-19. On Decadron ID seeing pt. Electronically Signed by Karyn Oneill NP on at 1255 Electronically Signed by Hnery Melara MD on 10/21 03/11 at 1652 RPT #:[id number] END OF REPORT 2021-11-04 20:59:00-00:00 [id number] [address] PATIENT NAME: VALENTINE MCNALLY ADMIT DATE: ACCOUNT NO: [id number] ROOM NO: [facility] AGE: 66 REPORT TYPE: CONSULTATION REPORT SEX: F ADMITTING PHYSICIAN:Ivan Freitas MD ATTENDING PHYSICIAN:Ivan Freitas MD CONSULTATION DATE: CONSULTING PHYSICIAN: Henry Melara MD CARDIOLOGY CONSULTATION REQUESTING PHYSICIAN: Dr. Leon. HISTORY OF PRESENT ILLNESS: Ms. Mcnally is a 66-ye ar-old pleasant lady with a history of end-stage renal d isease, on dialysis and did not have dialysis 2 days ago, history of diabetes mellitus and hypertensi on, who was consulted for positive troponin. The patie nt was evaluated with worsening shortness of breath and generalized fatigue, did not get her dialysis on Wednesday and was brought by sister because not feeling w ell, could not be lifted up from room and hence EMS was called. PAST MEDICAL HISTORY: Otherwise as above. SOCIAL HISTORY: She is a chronic smoker. FAMILY HISTORY: Not available. MEDICATIONS: As charted. PHYSICAL EXAMINATION: VITAL SIGNS: Blood pressure 142/64; heart rate 6 4 beats per minute, regular; respiratory rate is 18; and temperature 98.5. HEENT EXAMINATION: No jugular venous distention. CHEST: Decreased breath in all lung chavez. CARDIOVASCULAR: Apical impulse not palpable. S1 and S2 soft. ABDOMEN: Benign. EXTREMITIES: Showed trace edema. DIAGNOSTIC STUDIES: EKG shows normal sinus, no S T-T changes. SIGNIFICANT LABORATORY TESTS: Troponin 0.09. IMPRESSION: 1. Elevated troponin: Due to renal failure and t his is not from non-ST elevation myocardial infarction. 2. End-stage renal disease, noncompliant with di alysis. 3. Hypertension, well-controlled. PATIENT NAME: VALENTINE MCNALLY ACCOUNT #: [id number] RECOMMENDATIONS: 1. We will do an echocardiogram. 2. Since the patient's COVID positive, we would wait for her to be negative and then do a nuclear stress test if possible. 3. Otherwise, agree with current management. Dictated By: Henry Melara MD WT: CON:PatricioEDWARD/MALINA/NTS Conf#: [id number]#: [id number] Authenticated by Henry Melara MD On 11/05/2021 0 5:00:30 PM Electronically Signed by Henry Melara MD on at 0500 PATIENT NAME: VALENTINE MCNALLY ACCOUNT #: [id number] 2021-11-04 20:23:00-00:00 [facility] ([facility]) Hospitalist History Physical REPORT#:[id number] REPORT STATUS: Signed DATE:11/04/21 TIME: 2022 PATIENT: VALENTINE MCNALLY UNIT #: [id number] ROOM/BED: [place] [address] : 53 AGE: 66 SEX: F ATTEND: Ivan Freitas MD ADM AUTHOR: Daniel Rahman MD * ALL edits or amendments must be made on the [employer]/computer document * History of Present Illness HPI Chief complaint: COVID PCP: PCP: No Primary or Family Physician HPI: 66 y/o with ESRD/HTN/DM/heart disease and tobacc os abuse who was not feeling well starting on Wednesday (4 days prior to admission). (history is from the pt's sister...pt is a VERY POOR HISTORIAN). Then on and Wednesday, the patient continued to deteriorate and started falling down. The sister couldn't pick her up from the ground and had to call EMS. Pt continued to REFUSE to go to the ER till today. Pt also missed 2 HD sessions. In the ER, pt was found to be COVID +, with b/l infiltrates on CXR, positive troponin I and elevated potassium. History Past Medical Surgical Hx Patient History: 1. COVID 2. Hyperkalemia 3. Hypoxia 4. HTN (hypertension) 5. Elevated troponin I level 6. Diabetes 7. Metabolic encephalopathy Additional surgical history: AV graft, shoulder surgery, gallbladder Family History Additional family history: not relavent to current illness Social History Alcohol use: Denies EtOH use Drug use: Denies recreational drugs Smoking status: Smoking status for patients 13 years old or old er: Current some day smoker Date last smoked: 11/03/21 Packs per day: 10 Years smoked: 40 Pack years: 400 Medication/Allergy-Vaccine Hx Medications: Home Medications: ERGOCALCIFEROL (VITAMIN D2) 50,000 UNITS PO Q7D ISOSORBIDE MONONITRATE SR (IMDUR) 60 MG PO DAILY ACETAMINOPHEN/CODEINE (TYLENOL WITH CODEINE 300- 30 MG/12.5ML) CARVEDILOL (COREG) 25 MG PO BID MEALS FUROSEMIDE (LASIX) 40 MG PO DAILY [AMLODIPINE/BESYLATE] ASPIRIN 81 MG PO DAILY SIMVASTATIN (ZOCOR) 10 MG PO DAILY PROMETHAZINE (PHENERGAN) Allergies: Coded Allergies: No Known Allergies (11/04/21) Review of Systems Unable to obtain due to: pt is too confused. Physical Exam VS/I O: Vital Signs Date Temp Pulse Resp B/P B/P Mean Pulse Ox FiO2 11/04 98.0-98.3 64-78 18-26 119-165/63-79 87-10 5 93-98 Last Documented: Result Date Time Pulse Ox 96 11/04 1755 B/P 142/64 11/04 1755 B/P Mean 90 11/04 1755 O2 Delivery Nasal cannula 11/04 175 O2 Flow Rate 3 11/04 1755 Temp 98.0 11/04 1755 Pulse 64 / 1755 Resp 18 11/04 1755 Patient Weight and BMI Weight (kg): 101.500 BMI: 38.4 General appearance: awake Head/Eyes: atraumatic, normocephalic ENT: normal ear left, normal ear right, normal n ose Neck: full range of motion, no JVD Cardiovascular: normal heart sounds, regular rat e rhythm Respiratory: clear to auscultation, symmetric ex pansion, no distress Abdomen: non-tender, normal bowel sounds, soft, no distention Extremities: no clubbing, no cyanosis, no edema Neuro/LIVE HANGER: non focal, alert and oriented to hers elf, doesn't know the name of the hospital Skin: dry, no rash Results Radiology data: Current Medications Sig/Kiah Start time Last Medication Dose Route Stop Time Status Admin Simvastatin 10 MG BEDTIME 11/05 2099 AC PO 03/18 2059 Aspirin 81 MG DAILY 11/05 09 AC PO 12/05 0859 Furosemide 40 MG DAILY 11/05 09 AC PO 12/05 0859 Isosorbide 60 MG DAILY 11/05 09 AC Mononitrate PO 12/05 0859 Carvedilol 25 MG BID MEALS 11/05 08 AC PO 12/05 0759 Insulin Human Lispro 0 AC HS 11/04 2100 AC SUBQ 12/04 2058 Acetaminophen 650 MG Q4H PRN PRN 11/04 2029 AC PO 12/04 2028 Dextrose/Water 25 ML ASDIR PRN 11/04 2029 CKD IV 12/04 2028 Dextrose/Water 50 ML ASDIR PRN 11/04 2029 CKD IV 12/04 2028 Glucagon 1 MG ASDIR PRN 11/04 2029 AC IM 12/04 2028 Heparin Sodium 5,000 UNIT Q8H 11/04 2029 UNV SUBQ 12/04 2028 Ondansetron HCl 4 MG Q4H PRN PRN 11/04 2029 AC IV 12/04 2028 Albumin Human 12.5 GM ASDIR PRN 11/04 193 AC IV 12/05 193 Lidocaine HCl 0.5 ML ASDIR PRN 11/04 193 CKD I-DERMAL 12/05 193 Mannitol 12.5 GM ASDIR PRN 11/04 193 AC IV 12/05 193 Sodium Chloride 2,000 ML ASDIR PRN 11/04 193 A C IV 12/05 193 Sodium Chloride 10 ML ASDIR PRN 11/04 193 AC IV 12/04 192 Sodium Chloride 250 ML ASDIR PRN 11/04 1930 AC IV 12/04 1929 Sodium Chloride 0 ASDIR PRN 11/04 1015 AC IV 11/05 0913 Laboratory Tests: 11/04 11/04 11/04 1103 1103 1046 Chemistry Rapid Troponin I (0.00 - 0.08 ng/mL) 0.09 *H Rap B-Natriuretic Pept (0.0 - 100.0 pg/mL) 1950 .0 H Serology SARS CoV-2 RNA Rapid JUNITO (Negative) Positive * 11/04 11/04 11/04 1045 1035 1035 Blood Gas Sodium (134 - 147 MEQ/L) 134 Potassium (3.4 - 5.0 MEQ/L) 5.7 H Chloride (100 - 108 MEQ/L) 107 Ionized Calcium (1.12 - 1.32 MMOL/L) 0.64 L Chemistry POC Creatinine (0.6 - 1.0 mg/dL) > 15.0 H POC Glucose (mg/dL) (MG/DL) 166 Troponin I High Sens (0 - 34 ng/L) 81 H LDL Cholesterol Measurd (0 - 100 mg/dL) 54.6 Recent Impressions: RADIOLOGY - XR CHEST 1 V 11/04 1028 Report Impression - Status: SIGNED Entered: 11/04/2021 1054 IMPRESSION: 1. Patchy bilateral pulmonary opacities. Differe ntial considerations include edema and multifocal pneu monia. Impression By: [email or web address] - Alisa Moreno M.D. Diagnosis, Assessment Plan Problem List/A P: 1. COVID 2. Hyperkalemia 3. Hypoxia 4. Elevated troponin I level 5. HTN (hypertension) 6. Diabetes 7. Metabolic encephalopathy Free Text A P: 66 y/o with tobacco abuse, ESRD, HTN, DM, heart disease who presents with AMS and COVID+ with hypoxia. 1. COVID - pulmonary/ID to s ee. start steroids. on DVT prophylaxis. check acute phase reactants. Pt sister states pt IS VACCINAT ED with j/j vaccine x2. 2. Hyperkalemia - HD now, renal seeing. 3. Hypoxia - abnormal CXR, pulmonary to see.h/o smoking. 4. Elevated troponin I level - echo/cards to see . 5. HTN (hypertension) - restart BP meds 6. Diabetes - check a1c, SSI. 7. Metabolic encephalopathy - CT head/PT /OT eval. probably multifactorial from all above. Pt sister was concerned about a UTI. (pt makes urine). check UA and culture. Quality: Gen Med Crit Care VTE Prophylaxis VTE prophylaxis initiated: yes Current Medications Current medication review: I attest that the foregoing medication list in t he medical record is true, accurate, and complete to the best of my knowled ge. Advanced Care Plan 65 or Older Discussed with: surrogate decis. maker Discussion included: living will Electronically Signed by Daniel Rahman MD on 10/21 02/08 at 2034 RPT #:[id number] END OF REPORT 2021-11-04 13:04:00-00:00 [facility] ([facility] EMERGENCY PROVIDER REPORT REPORT#:[id number] REPORT STATUS: Signed DATE:11/04/21 TIME: 1304 PATIENT: VALENTINE MCNALLY UNIT #: [id number] ROOM/BED: FARHAD AGE: 66 SEX: F PCP PHYS: No Primary or Family Ph ysician SERVICE AUTHOR: Anthony Leon MD * ALL edits or amendments must be made on the el [employer]/computer document * HPI-Dyspnea/Wheezing Free Text HPI Notes Free Text HPI Notes 66-year-old female with a past medical history o f diabetes, hypertension and chronic kidney disease presents to the emergency department for evaluation of shortness of breath and generalized fatigue. Lydia rodrigues states the onset of the symptoms was several days ago and has progressiv tricia gotten worse. Patient states she missed her dialys is on Wednesday and today because she was not feeling well. Patient denies any brandon sea or vomiting but states she has had shortness of breath, cough, congestion has been going on. Lydia rodrigues denies any other associated symptoms at this time. General Confirmed Patient Yes Patient Type New patient Initial Greet Date/Time 11/04/21 1007 Presentation Chief Complaint Shortness of breath, Weakness Risk-Dyspnea/Wheezing Risk Stratification Coronary Artery Disease Risk factors reviewed Review of Systems ROS Statements All systems rev neg except as marked. Basic Review of Systems Basic ROS EYES: No redness, GI: No abd pain/vomiting, : No dysuria/frequency, HEM: No bleeding/bruising, N EURO: No change MS, NEURO: No focal deficit, PSYCH: NL thought content Focused Review of Systems Constitutional Denies: Chills, Fever, Lethargy. Ears/Nose/Throat Reports: Nasal congestion. Denies: Ear drainage bilat, Ear ringing bilat, Earache bilat. Respiratory Reports: Cough, non-productive, Shortness of marcelino ath. Cardiovascular Denies: Chest pain, Syncope. Musculoskeletal Denies: Back pain, Extremity pain. Skin Denies: Diaphoresis, Rash. Allergy/Immun Denies: Hives, Itching. Past Medical History - Adult Stated Complaint COUGH, CONGESTION, FEVER Allergies Coded Allergies: No Known Allergies (11/04/21) Home Medications Reported Medications ERGOCALCIFEROL (VITAMIN D2) 50,000 UNITS PO Q7D ISOSORBIDE MONONITRATE SR (IMDUR) 60 MG PO DAILY ACETAMINOPHEN/CODEINE (TYLENOL WITH CODEINE 300- 30 MG/12.5ML) CARVEDILOL (COREG) 25 MG PO BID MEALS FUROSEMIDE (LASIX) 40 MG PO DAILY [AMLODIPINE/BESYLATE] ASPIRIN 81 MG PO DAILY SIMVASTATIN (ZOCOR) 10 MG PO DAILY PROMETHAZINE (PHENERGAN) Calculated Suicide Risk (nurs) No risk Past Medical History: Reports: Diabetes mellitus, Hypertension, Kidney disease/stones. Smoking status: Smoking status for patients 13 years old or old er: Current some day smoker Date last smoked: 11/03/21 Packs per day: 10 Years smoked: 40 Pack years: 400 Physical Exam Vital Signs Vital Signs First Documented: Result Date Time Pulse Ox 93 11/04 1006 B/P 165/75 11/04 1006 B/P Mean 105 11/04 1006 O2 Delivery Room air 11/04 1006 Temp 98.3 11/04 1006 Pulse 76 11/04 1006 Resp 24 11/04 1006 O2 Flow Rate 3 11/04 1055 Last Documented: Result Date Time Pulse Ox 96 11/04 1258 B/P 119/72 11/04 1258 B/P Mean 87 11/04 1258 O2 Flow Rate 2 11/04 1258 Temp 98.1 11/04 1258 Pulse 74 11/04 1258 Resp 20 11/04 1258 O2 Delivery Nasal cannula 11/04 1114 Review of Vital Signs Reviewed Basic Physical Exam Basic PE HEAD: Atraumatic/NC , EYES: PERRL, conj clear, ENT: Membranes moist, ABD : Soft/non-tender, EXT: No g ross abnormality, SKIN: No rashes, warm/dry, NEURO: alert oriented, NEURO: gross movement NL, PSYCH: NL thought content Focused PE General/Const General/Const Awake, Alert Ears/Nose/Throat Ears/Nose/Throat Airway patent, Mucous membrane s moist, Pharynx NL MS Neck Neck Atraumatic, Supple, No meningismus, Full r benson of motion, No swelling, Non-tender, No masses Resp/Chest Respiratory/Chest Breath sounds NL, Breath soun ds = bilat, No respiratory distress, No rales, No rhonchi, No wheezing, No retractions, No stridor Cardiovascular Cardiovascular Heart rate NL, Regular rhythm, H eart sounds NL, Peripheral circulation NL Abdomen/GI Abdomen/GI Soft, Non-tender, No guarding, No re bound MS Back Back Inspection NL, Non-tender, No CVA tenderne ss MS Lower Extrem Lower Ext/Pelvis/MS Inspection NL, No swelling, Non-tender, No erythema, No deformity, Neurologic intact, No edema Skin Skin Color NL, No rash, Warm, Dry, Turgor NL Neurologic Neurologic Oriented X3, Speech NL, No motor def icits, No sensory deficits Interpretation Diagnostics Lab Results Interpretation Results Laboratory Tests: 11/04 11/04 11/04 1103 1103 1046 Chemistry Rapid Troponin I (0.00 - 0.08 ng/mL) 0.09 *H Rap B-Natriuretic Pept (0.0 - 100.0 pg/mL) 1950 .0 H Serology SARS CoV-2 RNA Rapid JUNITO (Negative) Positive A 11/04 11/04 11/04 1045 1035 1035 Blood Gas Sodium (134 - 147 MEQ/L) 134 Potassium (3.4 - 5.0 MEQ/L) 5.7 H Chloride (100 - 108 MEQ/L) 107 Ionized Calcium (1.12 - 1.32 MMOL/L) 0.64 L Chemistry POC Creatinine (0.6 - 1.0 mg/dL) > 15.0 H POC Glucose (mg/dL) (MG/DL) 166 Troponin I High Sens (0 - 34 ng/L) 81 H LDL Cholesterol Measurd (0 - 100 mg/dL) 54.6 Recent Impressions: RADIOLOGY - XR CHEST 1 V 11/04 1028 Report Impression - Status: SIGNED Entered: 11/04/2021 1054 IMPRESSION: 1. Patchy bilateral pulmonary opacities. Differe ntial considerations include edema and multifocal pneu monia. Impression By: [email or web address] - Alisa Moreno M.D. ECG #1 Interpretation ECG Documented in MUSE Yes Date 11/04/21 Time 1021 Interpreted by ED physician NL ECG Interpretation No STEMI Rate 75 Conduction/Sparkman RBBB - complete Re-Evaluation MDM ED Course Medication(s) Ordered Medication(s) Ordered: Electrolytic, Caloric, And Jerica Sig/Kiah Start time Last Medication Dose Route Stop Time Status Admin Sodium Chloride 0 ASDIR PRN 11/04 1015 AC IV 11/05 0913 Consultation Consultation Referral/Consult Name Assouad,Valeriy MD Surveillance Specialist Called Nephrology Requested Call Time 1306 Requested Call Date 11/04/21 Call Returned Call returned Call Returned Time 1434 Call Returned Date 11/04/21 Surveillance Specialist Will see patient Free Text Consult Notes Dr Robles levy was cov ering for him will see pt when they arrive to [place] Patient Discharge Departure Vital Signs/Condition Vital Signs First Documented: Result Date Time Pulse Ox 93 11/04 1006 B/P 165/75 11/04 1006 B/P Mean 105 11/04 1006 O2 Delivery Room air 11/04 1006 Temp 98.3 11/04 1006 Pulse 76 11/04 1006 Resp 24 11/04 1006 O2 Flow Rate 3 11/04 1055 Last Documented: Result Date Time Pulse Ox 96 11/04 1258 B/P 119/72 11/04 1258 B/P Mean 87 11/04 1258 O2 Flow Rate 2 11/04 1258 Temp 98.1 11/04 1258 Pulse 74 11/04 1258 Resp 20 11/04 1258 O2 Delivery Nasal cannula 11/04 1114 All vital signs available at the time of this en try have been reviewed. Clinical Impression Clinical Impression Primary Impression: COVID Secondary Impressions: Hyperkalemia, Hypoxia Disposition Decision Admit Admit Physician Name Ivan Freitas MD Admit Physician Hospitalist Request Time 1307 Request Date 11/04/21 )( Admission Accepts Yes )( Accepted Time 1307 )( Accepted Date 11/04/21 Call Information will see patient, agrees with eval, agrees with plan Discharge/Care Plan Counseled Regarding Diagnosi s, Lab results, Imaging studies, Need for admission, When to return to ED Admit Note I have spoken with the patie nt and/or caregivers. I have explained the patient's condition, diagnoses and josr atment plan based on the information available to me at this time. I have answered the patient's and/ or caregiver's questions and addressed any concerns. The patient and/or careg mayo have as good an understanding of the patient 's diagnosis, condition and treatment plan as can be expected at this point. The patient has been stabilized within the capability of the emergency department. The patient wi ll be transported for further care and management or will be moved to an observation or inpatient service. I have communicated with the staff or medical p ractitioner taking over this patient's care. Electronically Signed by Anthony Leon MD on at 1822 RPT #:[id number] END OF REPORT
[2023-04-29 09:12] LABS: Absolute Lymphocytes (CBC) 1.6 K/uL (0.7-4.9); Hematocrit 31.7 % (36.0-45.0); Lymphocytes % 21.9 % (15.3-44.8); MCV 99.4 fL (80-100); MPV 8.1 fL (7.6-11.3); Platelets 184 thou/uL (152-406); RBC Red Blood Cell Count 3.19 M/uL (3.86-4.86)
--- NOTE | 2023-04-29 09:31 | RAD REPORT ---
EXAM DESCRIPTION: CT - Spine Lumbar Wo Con - 04/29/2023 9:12 am CLINICAL HISTORY: Radiculopathy. NUMBNESS/TINGLING COMPARISON: No comparisons TECHNIQUE: Axial noncontrast CT imaging of the lumbar spine was performed with coronal and sagittal re-formatted images. All CT scans are performed using dose optimization technique as appropriate and may include automated exposure control or mA/KV adjustment according to patient size. FINDINGS: No acute lumbar spine fracture seen. No aggressive marrow pattern or malalignment. Mild di ffuse osteopenia. Paraspinal tissues are normal in thickness. No paraspinal abscess or hematoma seen. Moderate lower lumbar degenerative spondylosis is present with bilateral facet arthrosis. No high-gra de canal stenosis suspected. Heavy atherosclerosis. Sigmoid diverticulosis coli without diverticuliti s. IMPRESSION: No acute lumbar spine abnormality discerned. Moderate lower lumbar degenerative spondylosis. Follow-up nonemergent MRI may be considered to further evaluate disc disease.
[2023-04-29 09:33] LABS: Albumin 3.2 g/dL (3.4-5.0); Bilirubin Total 0.5 mg/dL (0.2-1.0); Protein, Total 7.5 g/dL (6.4-8.2)
[2023-04-29] MEDS ORDERED: KETOROLAC 30 MG/ML INJ ONE (09:50)
--- NOTE | 2023-04-29 10:04 | EDPHYS ---
Physician Documentation [facility] Name: Valentine Dia Age: 67 yrs Sex: Female : 1955 Arrival Date: 04/29/2023 Time: 08:36 Bed 17 Private MD: ED Physician Naun Pereira HPI: 04/29 08:55 This 67 yrs old Black Female presents to ER via EMS with complaints of Leg Pain. sp3 08:55 67-year-old female with history of diabetes and end-stage renal disease Wednesday sp3 Wednesday dialysis with last dialysis on Wednesday now presents with recurrent right-sided radiculopathy and leg pain extending from her lower back into her right foot. She states that she had this "a long time ago and that we fixed her" and this episode has been occurring for the last several days where she cannot ambulate well at home and requires assistance. She therefore returns here for further evaluation. Between her last episode and today she was not able to to be seen by orthopedics or neurosurgery and no further diagnostics have been performed including MRI. She denies any loss of bowel or bladder control or any other neurological symptoms or deficits. On review of systems she denies headache, trauma, fever, URI symptoms, chest pain, shortness of breath, abdominal pain, mid or upper back pain, syncope, near syncope, vomiting, diarrhea, nausea, travel history, fall or any other signs or symptoms at this time.. Historical: - Allergies: 08:45 Clonidine; aa5 - PMHx: 08:45 diabetes mellitus; HD - T//Wed; aa5 - Immunization history:: Adult Immunizations unknown. - Social history:: Smoking status: Patient reports the use of cigarette tobacco products, smokes one-half pack cigarettes per day. ROS: 09:07 Constitutional: Negative for fever, chills, and weight loss, Eyes: Negative for injury, sp3 pain, redness, and discharge, ENT: Negative for injury, pain, and discharge, Neck: Negative for injury, pain, and swelling, Cardiovascular: Negative for chest pain, palpitations, and edema, Respiratory: Negative for shortness of breath, cough, wheezing, and pleuritic chest pain, Abdomen/GI: Negative for abdominal pain, nausea, vomiting, diarrhea, and constipation, Back: Negative for injury and pain, Skin: Negative for injury, rash, and discoloration, Psych: Negative for depression, anxiety, suicide ideation, homicidal ideation, and hallucinations, Allergy/Immunology: Negative for hives, rash, and allergies, Endocrine: Negative for neck swelling, polydipsia, polyuria, polyphagia, and marked weight changes. 09:07 All other systems are negative. Exam: 09:09 Constitutional: This is a well developed, well nourished patient who is awake, alert, sp3 and in no acute distress. Head/Face: Normocephalic, atraumatic. Eyes: Pupils equal round and reactive to light, extra-ocular motions intact. Lids and lashes normal. Conjunctiva and sclera are non-icteric and not injected. Cornea within normal limits. Periorbital areas with no swelling, redness, or edema. Neck: Trachea midline, no thyromegaly or masses palpated, and no cervical lymphadenopathy. Supple, full range of motion without nuchal rigidity, or vertebral point tenderness. No Meningismus. Chest/axilla: Normal chest wall appearance and motion. Nontender with no deformity. No lesions are appreciated. Cardiovascular: Regular rate and rhythm with a normal S1 and S2. No gallops, murmurs, or rubs. Normal PMI, no JVD. No pulse deficits. Respiratory: Lungs have equal breath sounds bilaterally, clear to auscultation and percussion. No rales, rhonchi or wheezes noted. No increased work of breathing, no retractions or nasal flaring. Abdomen/GI: Soft, non-tender, with normal bowel sounds. No distension or tympany. No guarding or rebound. No evidence of tenderness throughout. Skin: Warm, dry with normal turgor. Normal color with no rashes, no lesions, and no evidence of cellulitis. Psych: Awake, alert, with orientation to person, place and time. Behavior, mood, and affect are within normal limits. 09:09 Musculoskeletal/extremity: Patient has pain with straight leg raise on the right side. Sensory exam is normal bilaterally. Motor function is present but extremely painful and patient has difficulty ambulating due to pain on the right lower extremity from buttock to the foot. Remainder of neurological exam is normal.. Vital Signs: 08:35 BP 115 / 46; Pulse 59; Resp 17; Temp 97.8(O); Pulse Ox 99% on R/A; rs5 08:41 BP 115 / 46; Pulse 64; Resp 18 S; Temp 98(O); Pulse Ox 99% on R/A; Weight 94.35 kg (M); aa5 Pain 0/10; 10:00 BP 118 / 61; Pulse 64; Resp 18 S; Pulse Ox 100% on R/A; aa5 08:41 Pain Scale: Adult aa5 08:41 at worse pain is a 05/30 aa5 MDM: 08:49 Patient medically screened. sp3 09:09 Data reviewed: vital signs, nurses notes, old medical records, lab test result(s), sp3 radiologic studies. ED course: 67-year-old female with now recurrent right-sided radiculopathy and leg pain. Will obtain lumbosacral CT looking for any disc narrowing and overall anatomy. Patient declines narcotic pain medication and therefore we will give ketorolac 15 mg IV. Will hold on steroids due to her diabetes and assess whether the ketorolac works first. I am not highly concerned for other critical pathology including aortic dissection or aneurysm, vascular pathology distal into her extremity, sepsis, shock, or other intra-abdominal pathology at this time. Likely disposition is discharge home with outpatient follow-up and outpatient MRI. Will reevaluate and determine disposition once workup is complete and medications take effect.. 10:00 ED course: Patient feels mildly better. CT scan demonstrates no radiological sp3 abnormality laboratory values are normal other than her known renal pathology. She declines any further medications so at this time I will discharge her home with orthopedic follow-up.. 04/29 08:49 Order name: CBC with Diff; Complete Time: 09:51 sp3 04/29 08:49 Order name: CMP; Complete Time: 09:51 sp3 04/29 08:49 Order name: CT Lumbar Spine Wo Con; Complete Time: 09:51 sp3 04/29 08:49 Order name: IV Saline Lock; Complete Time: 09:34 sp3 Administered Medications: 09:35 Drug: Ketorolac IVP 15 mg Route: IVP; Site: left antecubital; aa5 09:45 Follow up: Response: No adverse reaction aa5 Disposition Summary: 04/29/23 10:03 Discharge Ordered Location: Home sp3 Condition: Stable sp3 Diagnosis - Lumbar radiculopathy, leg pain sp3 Followup: sp3 - With: Alan Law MD - When: Upon discharge from the Emergency Department - Reason: Recheck today's complaints Discharge Instructions: - Discharge Summary Sheet sp3 - Lumbosacral Radiculopathy sp3 Forms: - Medication Reconciliation Form sp3 - Thank You Letter sp3 - Antibiotic Education sp3 - Prescription Opioid Use sp3 - Patient Portal Instructions sp3 Signatures: Dispatcher [employer] Najma Bess RN RN aa5 Naun Pereira MD MD sp3
--- NOTE | 2023-04-29 10:04 | ER ---
Nurse's Notes [facility] Name: Valentine Dia Age: 67 yrs Sex: Female : 1955 Arrival Date: 04/29/2023 Time: 08:36 Bed 17 Private MD: Diagnosis: Lumbar radiculopathy, leg pain Presentation: 04/29 08:41 Chief complaint: Patient states: right leg pain radiating up to right hip. Denies known aa5 injury. Last Dialysis was on Wednesday. 08:41 Coronavirus screen: At this time, the client does not indicate any symptoms associated aa5 with coronavirus-19. Ebola Screen: Patient denies travel to an Ebola-affected area in the 21 days before illness onset. Initial Sepsis Screen: Does the patient meet any 2 criteria? No. Patient's initial sepsis screen is negative. Does the patient have a suspected source of infection? No. Patient's initial sepsis screen is negative. Risk Assessment: Do you want to hurt yourself or someone else? Patient reports no desire to harm self or others. Onset of symptoms was April 2023. 08:41 Acuity: TIRSO 3 aa5 08:41 Method Of Arrival: [facility] aa5 08:41 Care prior to arrival: Glucose check: 177. aa5 Historical: - Allergies: 08:45 Clonidine; aa5 - PMHx: 08:45 diabetes mellitus; HD - T/TH/Sat; aa5 - Immunization history:: Adult Immunizations unknown. - Social history:: Smoking status: Patient reports the use of cigarette tobacco products, smokes one-half pack cigarettes per day. Screenin:45 [facility] ED Fall Risk Assessment (Adult) History of falling in the last 3 months, aa5 including since admission No falls in past 3 months (0 pts) Confusion or Disorientation No (0 pts) Intoxicated or Sedated No (0 pts) Impaired Gait No (0 pts) Mobility Assist Device Used No (0 pt) Altered Elimination No (0 pt) Score/Fall Risk Level 0 - 2 = Low Risk Oriented to surroundings, Maintained a safe environment, Educated pt \T\ family on fall prevention, incl call for assistance when getting out of bed. Abuse screen: Denies threats or abuse. Nutritional screening: No deficits noted. Tuberculosis screening: No symptoms or risk factors identified. Assessment: 08:42 General: Appears comfortable, Behavior is calm, cooperative. Pain: Complains of pain in aa5 right leg Pain radiates to right hip Pain currently is 0 out of 10 on a pain scale. at worst was 9 out of 10 on a pain scale. Quality of pain is described as sharp, shooting, Is intermittent, Aggravated by weight bearing. Neuro: Level of Consciousness is awake, alert, obeys commands, Oriented to person, place, time, situation. Cardiovascular: Patient's skin is warm and dry. Dialysis shunt: in the right arm, with palpable thrill, with auscultated bruit, with no erythema, with no edema, no bleeding noted. Respiratory: Airway is patent Respiratory effort is even, unlabored, Respiratory pattern is regular, symmetrical. GI: No signs and/or symptoms were reported involving the gastrointestinal system. : No signs and/or symptoms were reported regarding the genitourinary system. EENT: No signs and/or symptoms were reported regarding the EENT system. Derm: Skin is dry, Skin is normal, Skin temperature is warm. Musculoskeletal: Reports pain in right leg. 09:30 Reassessment: Pt back from radiology. . aa5 09:35 Neuro: Level of Consciousness is awake, alert, obeys commands, Oriented to person, aa5 place, time, situation. Respiratory: Airway is patent Respiratory effort is even, unlabored, Respiratory pattern is regular, symmetrical. Derm: Skin is dry, Skin is normal, Skin temperature is warm. 10:35 Neuro: Level of Consciousness is awake, alert, obeys commands, Oriented to person, aa5 place, time, situation. Respiratory: Airway is patent Respiratory effort is even, unlabored, Respiratory pattern is regular, symmetrical. Derm: Skin is dry, Skin is normal, Skin temperature is warm. Vital Signs: 08:35 BP 115 / 46; Pulse 59; Resp 17; Temp 97.8(O); Pulse Ox 99% on R/A; rs5 08:41 BP 115 / 46; Pulse 64; Resp 18 S; Temp 98(O); Pulse Ox 99% on R/A; Weight 94.35 kg (M); aa5 Pain 0/10; 10:00 BP 118 / 61; Pulse 64; Resp 18 S; Pulse Ox 100% on R/A; aa5 08:41 Pain Scale: Adult aa5 08:41 at worse pain is a 05/30 aa5 ED Course: 08:41 Patient arrived in ED. eb 08:41 Arm band placed on. aa5 08:41 Patient has correct armband on for positive identification. Bed in low position. Call aa5 light in reach. Side rails up X2. Pulse ox on. NIBP on. 08:43 Najma Gann, TAWNYA is Primary Nurse. aa5 08:47 Naun Pereira MD is Attending Physician. sp3 08:47 Triage completed. aa5 09:12 CT Lumbar Spine Wo Con In Process Unspecified. EDMS 09:30 Inserted saline lock: 20 gauge in left antecubital area, using aseptic technique. Blood rs5 collected. 10:03 Alan Law MD is Referral Physician. sp3 10:30 No provider procedures requiring assistance completed. IV discontinued, intact, aa5 bleeding controlled, No redness/swelling at site. Pressure dressing applied. Administered Medications: 09:35 Drug: Ketorolac IVP 15 mg Route: IVP; Site: left antecubital; aa5 09:45 Follow up: Response: No adverse reaction aa5 Medication: 10:30 VIS not applicable for this client. aa5 Outcome: 10:03 Discharge ordered by . sp3 10:30 Discharged to home via wheelchair, with family. aa5 10:30 Condition: improved 10:30 Discharge instructions given to patient, Instructed on discharge instructions, follow up and referral plans. Demonstrated understanding of instructions, follow-up care. Signatures: Dispatcher [employer] EDKS Najma Gann, TAWNYA BOWLING aa5 Opal Begum Naun Pereira MD MD sp3 Reno Parikh RN RN rs5 Corrections: (The following items were deleted from the chart) 10:10 10:09 Inserted saline lock: 22 gauge in left antecubital area, using aseptic technique. rs5 Blood collected. rs5 11:47 11:45 Patient left the ED. aa5 aa5 12: 09:22 Neuro: Level of Consciousness is awake, alert, obeys commands, Oriented to aa5 person, place, time, situation, aa5 12:01 09:22 Respiratory: Airway is patent Respiratory effort is even, unlabored, Respiratory aa5 pattern is regular, symmetrical, aa5 12:01 09:22 Derm: Skin is dry, Skin is normal, Skin temperature is warm aa5 aa5
[2023-04-29 11:59] VITALS: BP 115/46; TEMP 98; O2SAT 99
== END 2023-04-29 11:45 | disposition home or self-care (01) ==
LOC: ER 08:36
DX: M54.16 Radiculopathy, lumbar region (principal); E11.22 Type 2 diabetes mellitus with diabetic chronic kidney disease; N18.6 End stage renal disease; Z99.2 Dependence on renal dialysis; F17.210 Nicotine dependence, cigarettes, uncomplicated; Z88.8 Allergy status to other drugs, medicaments and biological substances
CPT/HCPCS: 36415; 72131; 80053; 85025; 96374; 99284

== ENCOUNTER 2024-12-01 18:39 | Inpatient (IN) | payer OTHER ==
--- OUTSIDE RECORDS SUMMARY | 2024-12-01 18:45 | XMS REPORT | Continuity of Care Document ---
Author Name Unknown Address [address] [facility] [address] [place] [address] Organization [facility] [place] Address [address] [facility] [address] [place] [address] Care Team Providers Care Water Filtration Technician Name Role Phone PCP, PATIENT DOES NOT HAVE A Primary Care Physic afua Unavailable Ivan Freitas Attending Clinician Unavailable Ruperto Castillo MD Attending Clinician [phone] Doctor Unassigned, [place] Attending Clinician U navailable Only, Adc Test Attending Clinician Unavailable Octavio Adams MD Attending Clinician [phone] Radiology Attending Clinician Unavailable RADIOLOGY Attending Clinician Unavailable Ivan Freitas Admitting Clinician Unavailable Payers Payer Name Policy Type Policy Number Effective Date Expirati on Date Source MEDICARE PART A \\T\\ B [id number] 2006 00:00:00 MEDICAID [place] [id number] 2015 00:00:00 Problems Condition Name Condition Details Condition Category Status Onset Date Resolution Date Last Treatment Date Treating Clinician Comments Source HLD (hyperlipi demia) HLD (hyperlipi demia) Disease Active 11-12 00:00: 00 Overview: Formattin g of this note might be different from the original. 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 [facility] Allergic rhinitis Allergic rhinitis Disease Active 11-12 00:00: 00 [facility] Insomnia Insomnia Disease Active 11-12 00:00: 00 [facility] Edema Edema Disease Active 11-12 00:00: 00 [facility] DM2 (diabetes mellitus, type 2) DM2 (diabetes mellitus, type 2) Disease Active 11-12 00:00: 00 [facility] Subjective tremor Subjective tremor Disease Active 11-12 00:00: 00 [facility] Tobacco abuse Tobacco abuse Disease Active 11-12 00:00: 00 [facility] Essential hypertensi on, benign Essential hypertensi on, benign Disease Active 2006-09 00:00: 00 [facility] Bronchitis Bronchitis Disease Active 2006-09 00:00: 00 Overview: Formattin g of this note might be different from the original. 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 [facility] Allergies, Adverse Reactions, Alerts Allergy Name Allergy Type Status Severity Reaction(s) Onset Date Inactive Date Treating Clinician Comments Source No Known Allergie s DA Active U 11-04 00:00: 00 [facility] CLONIDIN E DRUG INGREDI Active EP Effects 10-23 00:00: 00 [facility] Clonidin e Propensi ty to adverse reaction s Active Extra pyramidal effects 10-23 00:00: 00 [facility] Social History Social Habit Start Date Stop Date Quantity Comments Source Exposure to SARS-CoV-2 (event) Not sure [facility] History of tobacco use Cigarette Smoker [facility] Alcohol intake 2018-07-21 00:00:00 2018-07-21 00:00:00 0 /d [facility] Cigarette pack-years 2017-03-10 00:00:00 2017-03-10 00:00:00 [facility] Tobacco use and exposure 2017-03-10 00:00:00 2017-03-10 00:00:00 Never used [facility] Tobacco Comment 2017-03-10 00:00:00 2017-03-10 00:00:00 says she quit 2 weeks ago [facility] Cigarettes smoked current (pack per day) - Reported 2017-03-10 00:00:00 2017-03-10 00:00:00 [facility] Sex Assigned At 1955 00:00:00 1955 00:00:00 [facility] Smoking Status Start Date Stop Date Source Smoker, current status unknown 2017-03-10 00:00:00 [facility] Medications Ordered Medication Name Filled Medication Name Start Date Stop Date Current Medication? Ordering Clinician Indication Dosage Frequency Signature (SIG) Comments Components Source folic acid/vit B complex and C (DAQUAN-THADDEUS ORAL) 2017-09 20:09: 43 Yes 1{tbl} Take 1 tablet by mouth. [facility] isosorbide mononitrate (IMDUR) 60 mg 24 hr tablet 2017-09 19:49: 19 Yes 60mg Take 60 mg by mouth daily. [facility] carvedilol (COREG) 25 mg tablet 2017-09 19:49: 19 Yes 25mg Take 25 mg by mouth 2 (two) times daily with meals. [facility] aspirin 81 mg tablet 2017-09 19:49: 19 Yes 81mg Take 81 mg by mouth daily. [facility] diazepam (VALIUM) 10 mg tablet 2017-09 19:49: 19 Yes 10mg Take 10 mg by mouth every evening. [facility] docusate (COLACE) 100 mg capsule 2017-09 19:49: 19 Yes 100mg Take 100 mg by mouth daily. [facility] VIT B CMPLX 3/FA/VIT C/BIOTIN (DAQUAN-THADDEUS RX ORAL) 2017-09 19:49: 19 Yes 1{tbl} Take 1 Tab by mouth daily. [facility] amLODIPine 2.5 mg tablet 2017-09 19:49: 19 Yes 2.5mg Take 2.5 mg by mouth daily. [facility] ALBUTEROL SULFATE (PROAIR HFA INHALE) 2017-09 19:49: 19 Yes Inhale as needed. [facility] folic acid/vit B complex and C (DAQUAN-THADDEUS ORAL) 2017-09 15:09: 43 Yes 1{tbl} Take 1 tablet by mouth. [facility] isosorbide mononitrate (IMDUR) 60 mg 24 hr tablet 2017-09 14:49: 19 Yes 60mg Take 60 mg by mouth daily. [facility] carvedilol (COREG) 25 mg tablet 2017-09 14:49: 19 Yes 25mg Take 25 mg by mouth 2 (two) times daily with meals. [facility] aspirin 81 mg tablet 2017-09 14:49: 19 Yes 81mg Take 81 mg by mouth daily. [facility] diazepam (VALIUM) 10 mg tablet 2017-09 14:49: 19 Yes 10mg Take 10 mg by mouth every evening. [facility] docusate (COLACE) 100 mg capsule 2017-09 14:49: 19 Yes 100mg Take 100 mg by mouth daily. [facility] VIT B CMPLX 3/FA/VIT C/BIOTIN (DAQUAN-THADDEUS RX ORAL) 2017-09 14:49: 19 Yes 1{tbl} Take 1 Tab by mouth daily. [facility] amLODIPine 2.5 mg tablet 2017-09 14:49: 19 Yes 2.5mg Take 2.5 mg by mouth daily. [facility] ALBUTEROL SULFATE (PROAIR HFA INHALE) 2017-09 14:49: 19 Yes Inhale as needed. [facility] glipiZIDE XL 10 mg 24 hr tablet 06-16 00:00: 00 Yes TK 1 T PO QD [facility] furosemide 40 mg tablet 05-18 00:00: 00 Yes TK 1 T PO QD [facility] fluticasone (FLONASE) 50 mcg/actuati on nasal spray 02-06 00:00: 00 Yes 2{spray } Use 2 Sprays in each nostril daily. [facility] HYDROcodone -acetaminop hen (NORCO) 10-325 mg tablet 2013-09 00:00: 00 Yes 1{tbl} Take 1 Tab by mouth every 8 (eight) hours. [facility] simvastatin (ZOCOR) 10 mg tablet 05-04 00:00: 00 Yes 10mg Take 1 Tab by mouth at bedtime. [facility] carisoprodo l (SOMA) 350 mg tablet 12-19 00:00: 00 Yes 350mg Take 350 mg by mouth every 8 (eight) hours. [facility] Vital Signs Vital Name Observation Time Observation Value Comments S nesha Systolic blood pressure 2021-06-20 19:14:00 168 mm[Hg] [facility] Diastolic blood pressure 2021-06-20 19:14:00 78 mm[Hg] [facility] Heart rate 2021-06-20 19:14:00 84 /min [facility] Body temperature 2021-06-20 19:14:00 36.78 Huong [facility] Respiratory rate 2021-06-20 19:14:00 18 /min [facility] Oxygen saturation in Arterial blood by Pulse oximetry 2021-06-20 19:14:00 99 /min [facility] Body weight 2021-06-20 16:14:00 97.07 kg [facility] BMI 2021-06-20 16:14:00 36.73 kg/m2 [facility] Procedures Procedure Date / Time Performed Performing Clinician Source [id number] 2021-11-11 00:00:00 [facility] [id number] 2021-11-08 00:00:00 [facility] [id number] 2021-11-06 00:00:00 [facility] [id number] 2021-11-05 00:00:00 [facility] [id number] 2021-11-05 00:00:00 ISS [facility] [id number] 2021-11-04 00:00:00 [facility] [id number] 2021-11-03 00:00:00 VUPH [facility] POCT GLUCOSE (AUTOMATED) 2021-06-20 19:04:00 Ruperto Castillo [facility] TROPONIN I 2021-06-20 17:03:00 Ruperto Castillo [facility] COMP. METABOLIC PANEL ([id number]) 2021-06-20 17:03:00 Ruperto Castillo [facility] PROTHROMBIN TIME / INR 2021-06-20 17:03:00 Jeff Castillo [facility] ACTIVATED PARTIAL THRMPLAS NEENA 2021-06-20 17:03:00 Ruperto Castillo [facility] CBC WITH DIFF 2021-06-20 17:02:00 Ruperto Castillo [facility] COVID-19 (ID NOW RAPID TESTING) 2021-06-20 17:02:00 Ruperto Castillo [facility] LACTIC ACID WHOLE BLOOD 2021-06-20 17:01:00 Do anand Castillo [facility] NOTICE OF PRIVACY PRACTICES 2021-06-20 15:46:14 Doctor Unassigned, [place] [facility] CONSENT/REFUSAL FOR DIAGNOSIS AND TREATMENT 2021-06-20 15:45:38 Doctor Unassigned, [place] [facility] CT THORAX WO CONTRAST 2020-07-23 17:26:12 Requisition, Paper [facility] MR LUMBAR SPINE WO CONTRAST 2020-07-02 15:28:37 Requisition, Paper [facility] MR CERVICAL SPINE WO CONTRAST 2020-07-02 14:59:10 Requisition, Paper [facility] XR KNEE 3 VW RIGHT 2020-07-02 13:53:51 Requisition, Pa per [facility] ASSIGNMENT OF BENEFITS 2020-07-02 13:22:22 Docto r Unassigned, [place] [facility] Encounters Start Date/Time End Date/Time Encounter Type Admission Type Attending Clinicians Care Facility Care Department Encounter ID Source 2021-07-22 03:02:46 Emergency [facility] [id number] [facility] 2021-11-04 13:10:00 2021-11-11 21:23:00 Inpatient EM Ivan Freitas [facility] MEDI.01 [id number] 22 [facility] 2021-06-20 11:16:00 2021-06-20 14:18:00 Emergency Ruperto Castillo [facility] [id number] [facility] 2021-06-20 00:00:00 2021-06-20 00:00:00 Orders Only Doctor Unassigned, [place] [facility] [id number] [facility] 2020-08-06 10:18:02 2020-08-06 10:33:02 Laboratory Only Only, Adc Test Octavio Adams [facility] [id number] [facility] 2020-08-06 10:30:00 2020-08-06 10:30:00 Outpatient R [facility] [id number] [facility] 2020-07-23 10:58:11 2020-07-23 23:59:00 Hospital Encounter Radiology [facility] [id number] [facility] 2020-07-23 00:00:00 2020-07-23 00:00:00 Outpatient R RADIOLOGY [facility] [id number] [facility] 2020-07-18 00:00:00 2020-07-18 00:00:00 Outpatient R RADIOLOGY [facility] [id number] [facility] 2020-07-16 09:30:00 2020-07-16 09:30:00 Outpatient R [facility] [id number] [facility] 2020-07-02 08:28:21 2020-07-02 23:59:00 Hospital Encounter Radiology [facility] [id number] [facility] 2020-07-02 08:28:00 2020-07-02 08:28:00 Hospital Encounter Radiology [facility] [id number] [id number] [facility] 2020-07-02 08:26:35 2020-07-02 08:27:00 Hospital Encounter Radiology [facility] [id number] [facility] 2020-07-02 00:00:00 2020-07-02 00:00:00 Outpatient R RADIOLOGY [facility] [id number] [facility] 2020-07-02 00:00:00 2020-07-02 00:00:00 Orders Only Doctor Unassigned, [place] [facility] [id number] [id number] [facility] Results Test Description Test Time Test Comments Results Result Co mments Source GLUCOSE [id number] 10:54:00* Test Item Value Reference Range Interpretation Comme nts GLUCOSE BEDSIDE (test code = GLUBED) 157 MG/DL 70-110 H Performed by cer tified service control operator at [facility] GLUCOSE [id number] 07:58:00* Test Item Value Reference Range Interpretation Comme nts GLUCOSE BEDSIDE (test code = GLUBED) 172 MG/DL 70-110 H Performed by cer tified service control operator at [facility] GLUCOSE [id number] 19:45:00* Test Item Value Reference Range Interpretation Comme nts GLUCOSE BEDSIDE (test code = GLUBED) 314 MG/DL 70-110 H Performed by cer tified service control operator at [facility] GLUCOSE [id number] 17:28:00* Test Item Value Reference Range Interpretation Comme nts GLUCOSE BEDSIDE (test code = GLUBED) 242 MG/DL 70-110 H Performed by TopFlooried service control operator at [facility] GLUCOSE [id number] 11:52:00* Test Item Value Reference Range Interpretation Comme nts GLUCOSE BEDSIDE (test code = GLUBED) 213 MG/DL 70-110 H Performed by cer tified service control operator at [facility] GLUCOSE [id number] 08:09:00* Test Item Value Reference Range Interpretation Comme nts GLUCOSE BEDSIDE (test code = GLUBED) 178 MG/DL 70-110 H Performed by cer tified service control operator at [facility] GLUCOSE [id number] 19:29:00* Test Item Value Reference Range Interpretation Comme nts GLUCOSE BEDSIDE (test code = GLUBED) 281 MG/DL 70-110 H Performed by cer tified service control operator at [facility] GLUCOSE [id number] 17:26:00* Test Item Value Reference Range Interpretation Comme nts GLUCOSE BEDSIDE (test code = GLUBED) 272 MG/DL 70-110 H Performed by cer tified service control operator at [facility] GLUCOSE [id number] 11:53:00* Test Item Value Reference Range Interpretation Comme nts GLUCOSE BEDSIDE (test code = GLUBED) 227 MG/DL 70-110 H Performed by cer tified service control operator at [facility] GLUCOSE [id number] 08:01:00* Test Item Value Reference Range Interpretation Comme nts GLUCOSE BEDSIDE (test code = GLUBED) 238 MG/DL 70-110 H Performed by cer tified service control operator at [facility] BASIC METABOLIC [id number] 07:43:00* Test Item Value Reference Range Interpretation Comme nts SODIUM (test code = NA) 141 mEq/L 134-147 N POTASSIUM (test code = K) 4.1 mEq/L 3.4-5.0 N CHLORIDE (test code = CL) 101 mEq/L 100-108 N CARBON DIOXIDE (test code = CO2) 29 mEq/l 21-33 N ANION GAP (test code = GAP) 15 0-20 N GLUCOSE (test code = GLU) 251 mg/dL 70-110 H BLOOD UREA NITROGEN (test code = BUN) 40 mg/dL 7-18 H GLOMERULAR FILTRATION RATE (test code = GFR) 9.5 80-90 L Units of measure = ml/min/1.73 m2 CREATININE (test code = CREAT) 5.4 mg/dL 0.6-1.3 H CALCIUM (test code = CA) 8.7 mg/dL 8.0-10.5 N COMMENTS: Daily while receiving remdesivirHEPATIC FUNCTION [id number] 07:43:00* Test Item Value Reference Range Interpretation Comme nts TOTAL PROTEIN (test code = PROT) 6.3 g/dL 6.4-8.2 L ALBUMIN (test code = ALB) 2.90 g/dL 3.4-5.0 L BILIRUBIN TOTAL (test code = BILT) 0.60 mg/dL 0.0-1.0 N BILIRUBIN DIRECT (test code = BILD) 0.20 MG/DL 0.0-0.30 N SGOT/AST (test code = AST) 37 IUnit/L 15-37 N SGPT/ALT (test code = ALT) 19 IUnit/L 30-65 L ALKALINE PHOSPHATASE TOTAL ( test code = ALKP) 92 IUnit/L 20-125 N BILIRUBIN INDIRECT (test cod e = BILIND) 0.40 MG/DL COMMENTS: Daily while receiving remdesivirCBC W/AUTO [id number] 07:38:00* Test Item Value Reference Range Interpretation Comme nts WHITE BLOOD CELL (test code = WBC) 4.8 x10 3/uL 4.5-11.0 N RED BLOOD CELL (test code = RBC) 4.13 x10 6/uL 3.54-5.02 N HEMOGLOBIN (test code = HGB) 12.0 g/dL 11.0-15.0 N HEMATOCRIT (test code = HCT) 39.2 % 33.0-45.0 N MEAN CELL VOLUME (test code = MCV) 94.9 fL 81.0-99.0 N MEAN CELL HGB (test code = MCH) 29.1 pg 27.0-33.0 N MEAN CELL HGB CONCETRATION (test code = MCHC) 30.6 g/dL 33.0-37.0 L RED CELL DISTRIBUTION WIDTH CV (test code = RDW) 14.4 % 11.5-14.5 N PLATELET COUNT (test code = PLT) 133 x10 3/uL 150-400 L NEUTROPHIL % (test code = NT%) 86.7 % 56.0-77.0 H LYMPHOCYTE % (test code = LY%) 7.4 % 14.0-32.0 L NEUTROPHIL # (test code = NT#) 4.13 x10 3/uL 2.0-7.6 N LYMPHOCYTE # (test code = LY#) 0.35 x10 3/uL 1.0-3.8 L MANUAL DIFF REQUIRED (test c ode = MDIFF) NO RED CELL DISTRIBUTION WIDTH SD (test code = RDW-SD) 50.0 fL 37.0-54.0 N MEAN PLATELET VOLUME (test c ode = MPV) 12.8 fL 7.0-9.0 H IMMATURE GRANULOCYTE % (test code = IG%) 0.4 % 0.0-2.0 N MONOCYTE % (test code = MO%) 5.5 % 4.8-9.0 N EOSINOPHIL % (test code = EO%) 0.0 % 0.3-3.7 L BASOPHIL % (test code = BA%) 0.0 % 0.0-2.0 N NUCLEATED RBC % (test code = NRBC%) 0.0 % 0-0 N IMMATURE GRANULOCYTE # (test code = IG#) 0.02 x10 3/uL 0.00-0.03 N MONOCYTE # (test code = MO#) 0.26 x10 3/uL 0.1-0.8 N EOSINOPHIL # (test code = EO#) 0.00 x10 3/uL 0.0-0.2 N BASOPHIL # (test code = BA#) 0.00 x10 3/uL 0.0-0.2 N NUCLEATED RBC # (test code = NRBC#) 0.00 x10 3/uL 0.0-0.1 N GLUCOSE [id number] 20:01:00* Test Item Value Reference Range Interpretation Comme nts GLUCOSE BEDSIDE (test code = GLUBED) 322 MG/DL 70-110 H Performed by cer tified service control operator at [facility] GLUCOSE [id number] 16:57:00* Test Item Value Reference Range Interpretation Comme nts GLUCOSE BEDSIDE (test code = GLUBED) 196 MG/DL 70-110 H Performed by cer tified service control operator at [facility] GLUCOSE [id number] 12:11:00* Test Item Value Reference Range Interpretation Comme nts GLUCOSE BEDSIDE (test code = GLUBED) 281 MG/DL 70-110 H Performed by cer tified service control operator at [facility] BASIC METABOLIC [id number] 08:22:00* Test Item Value Reference Range Interpretation Comme nts SODIUM (test code = NA) 137 mEq/L 134-147 N POTASSIUM (test code = K) 4.6 mEq/L 3.4-5.0 N CHLORIDE (test code = CL) 97 mEq/L 100-108 L CARBON DIOXIDE (test code = CO2) 27 mEq/l 21-33 N ANION GAP (test code = GAP) 17 0-20 N GLUCOSE (test code = GLU) 259 mg/dL 70-110 H BLOOD UREA NITROGEN (test code = BUN) 48 mg/dL 7-18 H GLOMERULAR FILTRATION RATE (test code = GFR) 7.2 80-90 L Units of measure = ml/min/1.73 m2 CREATININE (test code = CREAT) 6.9 mg/dL 0.6-1.3 H CALCIUM (test code = CA) 7.6 mg/dL 8.0-10.5 L COMMENTS: Daily while receiving remdesivirHEPATIC FUNCTION [id number] 08:22:00* Test Item Value Reference Range Interpretation Comme nts TOTAL PROTEIN (test code = PROT) 6.5 g/dL 6.4-8.2 N ALBUMIN (test code = ALB) 3.00 g/dL 3.4-5.0 L BILIRUBIN TOTAL (test code = BILT) 0.60 mg/dL 0.0-1.0 N BILIRUBIN DIRECT (test code = BILD) 0.20 MG/DL 0.0-0.30 BILIRUBIN INDIRECT (test cod e = BILIND) 0.40 MG/DL SGOT/AST (test code = AST) 26 IUnit/L 15-37 N SGPT/ALT (test code = ALT) 13 IUnit/L 30-65 L ALKALINE PHOSPHATASE TOTAL ( test code = ALKP) 92 IUnit/L 20-125 N COMMENTS: Daily while receiving remdesivirGLUCOSE [id number] 08:10:00* Test Item Value Reference Range Interpretation Comme nts GLUCOSE BEDSIDE (test code = GLUBED) 233 MG/DL 70-110 H Performed by cer tified service control operator at [facility] CBC W/AUTO [id number] 08:02:00* Test Item Value Reference Range Interpretation Comme nts WHITE BLOOD CELL (test code = WBC) 5.6 x10 3/uL 4.5-11.0 N RED BLOOD CELL (test code = RBC) 3.97 x10 6/uL 3.54-5.02 N HEMOGLOBIN (test code = HGB) 11.5 g/dL 11.0-15.0 N HEMATOCRIT (test code = HCT) 37.8 % 33.0-45.0 N MEAN CELL VOLUME (test code = MCV) 95.2 fL 81.0-99.0 N MEAN CELL HGB (test code = MCH) 29.0 pg 27.0-33.0 N MEAN CELL HGB CONCETRATION (test code = MCHC) 30.4 g/dL 33.0-37.0 L RED CELL DISTRIBUTION WIDTH CV (test code = RDW) 14.6 % 11.5-14.5 H PLATELET COUNT (test code = PLT) 132 x10 3/uL 150-400 L NEUTROPHIL % (test code = NT%) 88.3 % 56.0-77.0 H LYMPHOCYTE % (test code = LY%) 7.0 % 14.0-32.0 L NEUTROPHIL # (test code = NT#) 4.92 x10 3/uL 2.0-7.6 N LYMPHOCYTE # (test code = LY#) 0.39 x10 3/uL 1.0-3.8 L MANUAL DIFF REQUIRED (test c ode = MDIFF) NO RED CELL DISTRIBUTION WIDTH SD (test code = RDW-SD) 51.4 fL 37.0-54.0 N MEAN PLATELET VOLUME (test c ode = MPV) 11.2 fL 7.0-9.0 H IMMATURE GRANULOCYTE % (test code = IG%) 0.4 % 0.0-2.0 N MONOCYTE % (test code = MO%) 4.3 % 4.8-9.0 L EOSINOPHIL % (test code = EO%) 0.0 % 0.3-3.7 L BASOPHIL % (test code = BA%) 0.0 % 0.0-2.0 N NUCLEATED RBC % (test code = NRBC%) 0.0 % 0-0 N IMMATURE GRANULOCYTE # (test code = IG#) 0.02 x10 3/uL 0.00-0.03 N MONOCYTE # (test code = MO#) 0.24 x10 3/uL 0.1-0.8 N EOSINOPHIL # (test code = EO#) 0.00 x10 3/uL 0.0-0.2 N BASOPHIL # (test code = BA#) 0.00 x10 3/uL 0.0-0.2 N NUCLEATED RBC # (test code = NRBC#) 0.00 x10 3/uL 0.0-0.1 N GLUCOSE [id number] 20:29:00* Test Item Value Reference Range Interpretation Comme nts GLUCOSE BEDSIDE (test code = GLUBED) 312 MG/DL 70-110 H Performed by cer tified service control operator at [facility] GLUCOSE [id number] 18:02:00* Test Item Value Reference Range Interpretation Comme nts GLUCOSE BEDSIDE (test code = GLUBED) 237 MG/DL 70-110 H Performed by cer tified service control operator at [facility] GLUCOSE [id number] 10:58:00* Test Item Value Reference Range Interpretation Comme nts GLUCOSE BEDSIDE (test code = GLUBED) 243 MG/DL 70-110 H Performed by cer tified service control operator at [facility] GLUCOSE [id number] 08:34:00* Test Item Value Reference Range Interpretation Comme nts GLUCOSE BEDSIDE (test code = GLUBED) 198 MG/DL 70-110 H Performed by cer tified service control operator at [facility] BASIC METABOLIC [id number] 07:57:00* Test Item Value Reference Range Interpretation Comme nts SODIUM (test code = NA) 138 mEq/L 134-147 N POTASSIUM (test code = K) 4.2 mEq/L 3.4-5.0 N CHLORIDE (test code = CL) 102 mEq/L 100-108 N CARBON DIOXIDE (test code = CO2) 25 mEq/l 21-33 N ANION GAP (test code = GAP) 15 0-20 N GLUCOSE (test code = GLU) 209 mg/dL 70-110 H BLOOD UREA NITROGEN (test code = BUN) 20 mg/dL 7-18 H GLOMERULAR FILTRATION RATE (test code = GFR) 9.3 80-90 L Units of measure = ml/min/1.73 m2 CREATININE (test code = CREAT) 5.5 mg/dL 0.6-1.3 H CALCIUM (test code = CA) 8.7 mg/dL 8.0-10.5 COMMENTS: Daily while receiving remdesivirHEPATIC FUNCTION [id number] 07:57:00* Test Item Value Reference Range Interpretation Comme nts TOTAL PROTEIN (test code = PROT) 7.0 g/dL 6.4-8.2 N ALBUMIN (test code = ALB) 3.20 g/dL 3.4-5.0 L BILIRUBIN TOTAL (test code = BILT) 0.80 mg/dL 0.0-1.0 BILIRUBIN DIRECT (test code = BILD) 0.30 MG/DL 0.0-0.30 BILIRUBIN INDIRECT (test cod e = BILIND) 0.50 MG/DL SGOT/AST (test code = AST) 32 IUnit/L 15-37 N SGPT/ALT (test code = ALT) 16 IUnit/L 30-65 L ALKALINE PHOSPHATASE TOTAL ( test code = ALKP) 93 IUnit/L 20-125 N COMMENTS: Daily while receiving remdesivirCBC W/AUTO [id number] 06:57:00* Test Item Value Reference Range Interpretation Comme nts WHITE BLOOD CELL (test code = WBC) 4.9 x10 3/uL 4.5-11.0 RED BLOOD CELL (test code = RBC) 3.91 x10 6/uL 3.54-5.02 N HEMOGLOBIN (test code = HGB) 11.7 g/dL 11.0-15.0 N HEMATOCRIT (test code = HCT) 37.8 % 33.0-45.0 N MEAN CELL VOLUME (test code = MCV) 96.7 fL 81.0-99.0 N MEAN CELL HGB (test code = MCH) 29.9 pg 27.0-33.0 N MEAN CELL HGB CONCETRATION (test code = MCHC) 31.0 g/dL 33.0-37.0 L RED CELL DISTRIBUTION WIDTH CV (test code = RDW) 15.5 % 11.5-14.5 H RED CELL DISTRIBUTION WIDTH SD (test code = RDW-SD) 54.7 fL 37.0-54.0 H PLATELET COUNT (test code = PLT) 139 x10 3/uL 150-400 L MEAN PLATELET VOLUME (test c ode = MPV) 11.4 fL 7.0-9.0 H NEUTROPHIL % (test code = NT%) 87.4 % 56.0-77.0 H IMMATURE GRANULOCYTE % (test code = IG%) 0.2 % 0.0-2.0 N LYMPHOCYTE % (test code = LY%) 6.8 % 14.0-32.0 L MONOCYTE % (test code = MO%) 5.6 % 4.8-9.0 N EOSINOPHIL % (test code = EO%) 0.0 % 0.3-3.7 L BASOPHIL % (test code = BA%) 0.0 % 0.0-2.0 N NUCLEATED RBC % (test code = NRBC%) 0.0 % 0-0 N NEUTROPHIL # (test code = NT#) 4.24 x10 3/uL 2.0-7.6 N IMMATURE GRANULOCYTE # (test code = IG#) 0.01 x10 3/uL 0.00-0.03 N LYMPHOCYTE # (test code = LY#) 0.33 x10 3/uL 1.0-3.8 L MONOCYTE # (test code = MO#) 0.27 x10 3/uL 0.1-0.8 N EOSINOPHIL # (test code = EO#) 0.00 x10 3/uL 0.0-0.2 N BASOPHIL # (test code = BA#) 0.00 x10 3/uL 0.0-0.2 N NUCLEATED RBC # (test code = NRBC#) 0.00 x10 3/uL 0.0-0.1 N MANUAL DIFF REQUIRED (test c ode = MDIFF) NO GLUCOSE [id number] 19:32:00* Test Item Value Reference Range Interpretation Comme nts GLUCOSE BEDSIDE (test code = GLUBED) 303 MG/DL 70-110 H Performed by cer tified service control operator at [facility] GLUCOSE [id number] 15:56:00* Test Item Value Reference Range Interpretation Comme nts GLUCOSE BEDSIDE (test code = GLUBED) 334 MG/DL 70-110 H Performed by cer tified service control operator at [facility] GLUCOSE [id number] 12:14:00* Test Item Value Reference Range Interpretation Comme nts GLUCOSE BEDSIDE (test code = GLUBED) 275 MG/DL 70-110 H Performed by cer tified service control operator at [facility] GLUCOSE [id number] 08:01:00* Test Item Value Reference Range Interpretation Comme nts GLUCOSE BEDSIDE (test code = GLUBED) 167 MG/DL 70-110 H Performed by cer BrightQubeied service control operator at [facility] BASIC METABOLIC [id number] 08:00:00* Test Item Value Reference Range Interpretation Comme nts SODIUM (test code = NA) 142 mEq/L 134-147 N POTASSIUM (test code = K) 4.2 mEq/L 3.4-5.0 N SPECIMEN 1+ HEMOLYZED.Results known to be adversely affected by hemolysis are: Potassium Magnesium LDH Phosphorus CHLORIDE (test code = CL) 103 mEq/L 100-108 N CARBON DIOXIDE (test code = CO2) 25 mEq/l 21-33 ANION GAP (test code = GAP) 18 0-20 N GLUCOSE (test code = GLU) 214 mg/dL 70-110 H BLOOD UREA NITROGEN (test code = BUN) 38 mg/dL 7-18 H GLOMERULAR FILTRATION RATE (test code = GFR) 8.0 80-90 L Units of measure = ml/min/1.73 m2 CREATININE (test code = CREAT) 6.3 mg/dL 0.6-1.3 H CALCIUM (test code = CA) 6.9 mg/dL 8.0-10.5 L COMMENTS: Daily while receiving remdesivirHEPATIC FUNCTION [id number] 08:00:00* Test Item Value Reference Range Interpretation Comme nts TOTAL PROTEIN (test code = PROT) 6.1 g/dL 6.4-8.2 L ALBUMIN (test code = ALB) 2.70 g/dL 3.4-5.0 L BILIRUBIN TOTAL (test code = BILT) 0.60 mg/dL 0.0-1.0 N BILIRUBIN DIRECT (test code = BILD) 0.20 MG/DL 0.0-0.30 N BILIRUBIN INDIRECT (test cod e = BILIND) 0.40 MG/DL SGOT/AST (test code = AST) 45 IUnit/L 15-37 H SGPT/ALT (test code = ALT) 16 IUnit/L 30-65 L ALKALINE PHOSPHATASE TOTAL ( test code = ALKP) 79 IUnit/L 20-125 N COMMENTS: Daily while receiving remdesivirCBC W/AUTO [id number] 07:58:00* Test Item Value Reference Range Interpretation Comme nts WHITE BLOOD CELL (test code = WBC) 2.6 x10 3/uL 4.5-11.0 L RED BLOOD CELL (test code = RBC) 3.44 x10 6/uL 3.54-5.02 L HEMOGLOBIN (test code = HGB) 10.3 g/dL 11.0-15.0 L HEMATOCRIT (test code = HCT) 32.9 % 33.0-45.0 L MEAN CELL VOLUME (test code = MCV) 95.6 fL 81.0-99.0 N MEAN CELL HGB (test code = MCH) 29.9 pg 27.0-33.0 N MEAN CELL HGB CONCETRATION (test code = MCHC) 31.3 g/dL 33.0-37.0 L RED CELL DISTRIBUTION WIDTH CV (test code = RDW) 15.2 % 11.5-14.5 H RED CELL DISTRIBUTION WIDTH SD (test code = RDW-SD) 54.0 fL 37.0-54.0 N PLATELET COUNT (test code = PLT) 125 x10 3/uL 150-400 L MEAN PLATELET VOLUME (test c ode = MPV) 12.0 fL 7.0-9.0 H NEUTROPHIL % (test code = NT%) 87.9 % 56.0-77.0 H IMMATURE GRANULOCYTE % (test code = IG%) 0.4 % 0.0-2.0 N LYMPHOCYTE % (test code = LY%) 7.8 % 14.0-32.0 L MONOCYTE % (test code = MO%) 3.9 % 4.8-9.0 L EOSINOPHIL % (test code = EO%) 0.0 % 0.3-3.7 L BASOPHIL % (test code = BA%) 0.0 % 0.0-2.0 N NUCLEATED RBC % (test code = NRBC%) 0.0 % 0-0 N NEUTROPHIL # (test code = NT#) 2.25 x10 3/uL 2.0-7.6 N IMMATURE GRANULOCYTE # (test code = IG#) 0.01 x10 3/uL 0.00-0.03 N LYMPHOCYTE # (test code = LY#) 0.20 x10 3/uL 1.0-3.8 L MONOCYTE # (test code = MO#) 0.10 x10 3/uL 0.1-0.8 N EOSINOPHIL # (test code = EO#) 0.00 x10 3/uL 0.0-0.2 N BASOPHIL # (test code = BA#) 0.00 x10 3/uL 0.0-0.2 N NUCLEATED RBC # (test code = NRBC#) 0.00 x10 3/uL 0.0-0.1 N MANUAL DIFF REQUIRED (test c ode = MDIFF) NO ACUTE HEPATITIS [id number] 04:09:00* Test Item Value Reference Range Interpretation Comme nts AB HEPATITIS A IGM (test code = HAVMAB) NON REACTIVE INDEX NON REACT. AG HEPATITIS B SURFACE (test code = HBSAG) NON REACTIVE INDEX NonReactive AB HEPATITIS B CORE IGM (test code = HBCMAB) NON REACTIVE INDEX NON REACT. AB HEPATITIS C (test code = HCVAB) NON REACTIVE INDEX NON REACT. AB HEPATITIS B [id number] 04:09:00* Test Item Value Reference Range Interpretation Comme nts AB HEPATITIS B SURFACE (test code = HBSAB) 449.2 mIU/mL See_Comment Status of Immuni ty Anti-HBs Level Inconsi stent with Immunity 0.0 - 9.9Consistent with Immunity >9.9Performed At: [facility] [address] [id number] Kyle L MD Ph:[phone] [Automated message] The system which generated this result transmitted reference range: Immunity>9.9. The reference range was not used to interpret this result as normal/abnormal. GLUCOSE [id number] 21:13:00* Test Item Value Reference Range Interpretation Comme nts GLUCOSE BEDSIDE (test code = GLUBED) 149 MG/DL 70-110 H Performed by cer ernesto service control operator at [facility] HEPATIC FUNCTION [id number] 17:24:00* Test Item Value Reference Range Interpretation Comme nts TOTAL PROTEIN (test code = PROT) 6.6 g/dL 6.4-8.2 N ALBUMIN (test code = ALB) 3.00 g/dL 3.4-5.0 L BILIRUBIN TOTAL (test code = BILT) 0.60 mg/dL 0.0-1.0 N BILIRUBIN DIRECT (test code = BILD) 0.20 MG/DL 0.0-0.30 N BILIRUBIN INDIRECT (test cod e = BILIND) 0.40 MG/DL SGOT/AST (test code = AST) 38 IUnit/L 15-37 H SGPT/ALT (test code = ALT) 19 IUnit/L 30-65 L ALKALINE PHOSPHATASE TOTAL ( test code = ALKP) 88 IUnit/L 20-125 N COMMENTS: Prior to remdesivir dosingGLOMERULAR FILTRATION [id number] 17:24:00* Test Item Value Reference Range Interpretation Comme nts GLOMERULAR FILTRATION RATE (test code = GFR) 4.2 80-90 L Units of measure = ml/min/1.73 m2 COMMENTS: Prior to remdesivir [id number] 17:24:00* Test Item Value Reference Range Interpretation Comme nts CREATININE (test code = CREAT) 11.0 mg/dL 0.6-1.3 H COMMENTS: Prior to remdesivir dosingPROTHROMBIN [id number] 16:57:00* Test Item Value Reference Range Interpretation Comme nts PROTHROMBIN TIME PATIENT (test code = PTP) 11.9 SECONDS 9.3-12.9 N INTERNATIONAL NORMAL RATIO (test code = INR) 1.1 0.8-1.2 N TARGET INR BY INDICATION Indication INR1. Prophylaxis of venous thrombosis 2.0 - 3.0 (orthopedic surgery), Prophylaxis of venous thrombosis (other than high-risk surgery), Treatment of Deep Vein Thrombosis/Pulmonary Embolism, Prevention of systemic embolism - Tissue heart valves, Acute Myocardial Infarction (to prevent systemic embolism), Valvular heart disease, Atrial Fibrillation, Bileaflet mechanical valve in aortic position.2. Mechanical prosthetic valves (high risk), 2.5 - 3.5 Presence of Lupus Anticoagulant or Antiphospholipid Antibodies, Prevention of systemic embolism - Acute Myocardial Infarction (to prevent recurrent infarct). COMMENTS: Prior to remdesivir dosingGLUCOSE [id number] 16:51:00* Test Item Value Reference Range Interpretation Comme nts GLUCOSE BEDSIDE (test code = GLUBED) 147 MG/DL 70-110 H Performed by cer tified service control operator at [facility] GLUCOSE [id number] 11:38:00* Test Item Value Reference Range Interpretation Comme nts GLUCOSE BEDSIDE (test code = GLUBED) 132 MG/DL 70-110 H Performed by cer tified service control operator at [facility] GLUCOSE [id number] 09:26:00* Test Item Value Reference Range Interpretation Comme nts GLUCOSE BEDSIDE (test code = GLUBED) 90 MG/DL 70-110 N Performed by sky orozco service control operator at [facility] [id number] 08:12:00* Test Item Value Reference Range Interpretation Comme nts HGBA1C% (test code = HGBA1C%) 5.3 %A1C 4.8-6.0 N COMPREHENSIVE METABOLIC [id number] 07:59:00* Test Item Value Reference Range Interpretation Comme nts SODIUM (test code = NA) 142 mEq/L 134-147 N POTASSIUM (test code = K) 3.8 mEq/L 3.4-5.0 CHLORIDE (test code = CL) 107 mEq/L 100-108 N CARBON DIOXIDE (test code = CO2) 19 mEq/l 21-33 L ANION GAP (test code = GAP) 20 0-20 N GLUCOSE (test code = GLU) 65 mg/dL 70-110 L BLOOD UREA NITROGEN (test code = BUN) 61 mg/dL 7-18 H GLOMERULAR FILTRATION RATE (test code = GFR) 5.1 80-90 L Units of measure = ml/min/1.73 m2 CREATININE (test code = CREAT) 9.3 mg/dL 0.6-1.3 H TOTAL PROTEIN (test code = PROT) 5.8 g/dL 6.4-8.2 L ALBUMIN (test code = ALB) 2.60 g/dL 3.4-5.0 L CALCIUM (test code = CA) 6.1 mg/dL 8.0-10.5 LL Critical result called to Leandro BARILLAS.[facility] at 0757 11/05/21Nurse read back result and tech confirmed it's correct? Y BILIRUBIN TOTAL (test code = BILT) 0.50 mg/dL 0.0-1.0 N SGOT/AST (test code = AST) 39 IUnit/L 15-37 H SGPT/ALT (test code = ALT) 17 IUnit/L 30-65 L ALKALINE PHOSPHATASE TOTAL (test code = ALKP) 74 IUnit/L 20-125 N [id number] 07:59:00* Test Item Value Reference Range Interpretation Comme nts PHOSPHOROUS (test code = PHOS) 6.3 MG/DL 2.5-4.9 H CBC W/AUTO [id number] 07:50:00* Test Item Value Reference Range Interpretation Comme nts WHITE BLOOD CELL (test code = WBC) 4.5 x10 3/uL 4.5-11.0 N RED BLOOD CELL (test code = RBC) 3.31 x10 6/uL 3.54-5.02 L HEMOGLOBIN (test code = HGB) 9.9 g/dL 11.0-15.0 L HEMATOCRIT (test code = HCT) 31.2 % 33.0-45.0 L MEAN CELL VOLUME (test code = MCV) 94.3 fL 81.0-99.0 N MEAN CELL HGB (test code = MCH) 29.9 pg 27.0-33.0 N MEAN CELL HGB CONCETRATION (test code = MCHC) 31.7 g/dL 33.0-37.0 L RED CELL DISTRIBUTION WIDTH CV (test code = RDW) 15.5 % 11.5-14.5 H RED CELL DISTRIBUTION WIDTH SD (test code = RDW-SD) 53.8 fL 37.0-54.0 N PLATELET COUNT (test code = PLT) 124 x10 3/uL 150-400 L MEAN PLATELET VOLUME (test c ode = MPV) 11.6 fL 7.0-9.0 H NEUTROPHIL % (test code = NT%) 80.2 % 56.0-77.0 H IMMATURE GRANULOCYTE % (test code = IG%) 0.7 % 0.0-2.0 N LYMPHOCYTE % (test code = LY%) 15.1 % 14.0-32.0 N MONOCYTE % (test code = MO%) 4.0 % 4.8-9.0 L EOSINOPHIL % (test code = EO%) 0.0 % 0.3-3.7 L BASOPHIL % (test code = BA%) 0.0 % 0.0-2.0 N NUCLEATED RBC % (test code = NRBC%) 0.0 % 0-0 N NEUTROPHIL # (test code = NT#) 3.57 x10 3/uL 2.0-7.6 N IMMATURE GRANULOCYTE # (test code = IG#) 0.03 x10 3/uL 0.00-0.03 N LYMPHOCYTE # (test code = LY#) 0.67 x10 3/uL 1.0-3.8 L MONOCYTE # (test code = MO#) 0.18 x10 3/uL 0.1-0.8 N EOSINOPHIL # (test code = EO#) 0.00 x10 3/uL 0.0-0.2 N BASOPHIL # (test code = BA#) 0.00 x10 3/uL 0.0-0.2 N NUCLEATED RBC # (test code = NRBC#) 0.00 x10 3/uL 0.0-0.1 N MANUAL DIFF REQUIRED (test c ode = MDIFF) NO GLUCOSE [id number] 00:50:00* Test Item Value Reference Range Interpretation Comme nts GLUCOSE BEDSIDE (test code = GLUBED) 82 MG/DL 70-110 N Performed by cer tified service control operator at [facility] CBC W/AUTO [id number] 00:08:00* Test Item Value Reference Range Interpretation Comme nts WHITE BLOOD CELL (test code = WBC) [...] pg 27.0-31.0 N MEAN CELL HGB CONCETRATION ( test code = MCHC) 33.3 GM/DL 33.0-37.0 N RED CELL DISTRIBUTION WIDTH CV (test code = RDW) 15.9 % 11.5-14.5 H PLATELET COUNT (test code = PLT) 150 K/mm3 150-400 N MEAN PLATELET VOLUME (test c ode = MPV) 10.9 FL 8.8-13.1 N NEUTROPHIL % (test code = NT%) 84.5 [...] 0.1-0.8 N - CT ABD PELVIS W/O [id number] 00:00[facility]00 [facility] 1955 Sex: F Name: VALENTINE MCNALLY [facility] : 1955 Age/S: 66 / F [address] [place] [address] Unit #: [id number] Loc: [place] [address] Phys: Heber Rainey DO Acct: [id number] Dis Date: Status: ADM IN PHONE #: [phone] Exam Date: 11/05/2021 1311 FAX #: [phone] Reason: nausea/vomitting EXAMS: CPT CODE: [id number] CT ABD PELVIS W/O CONT 66489 PROCEDURE INFORMATION: Exam: CT Abdomen And Pelvis Without Contrast Exam date and time: 11/05/2021 1:11 PM Age: 66 years old Clinical indication: Nausea and vomiting; Additional info: Nausea/vomitting; dialysis patient TECHNIQUE: Imaging protocol: Computed tomography of the abdomen and pelvis without contrast. Radiation optimization: All CTscans at this facility use at least one of these dose optimization techniques: automated exposure control; mA and/or kV adjustment per patient size (includes targeted exams where dose is matched to clinical indication); or iterative reconstruction. COMPARISON: Chest single view 11/04/2021 FINDINGS:Limitations: Assessment of the viscera and vasculature may be limited by the lack of intravenous contrast. Lungs: There are extensive indistinct ground-glass and moderate attenuation airspace opacities in the visualized lung bases. Pleural spaces: There are trace bilateral pleural effusions. Heart:There are calcifications in the visualized coronary arteries. [...] otherwise unremarkable. The small bowel is unremarkable. Thereare colonic diverticula, more numerous in the sigmoid colon. No regional inflammatory changes. Appendix: A normal appendix is identified. Intraperitoneal space: There is no free intraperitoneal fluid or air. No focal fluid collection. Vasculature: Extensive calcified plaque in the abdominal aortaand branch vessels. No aneurysm. Lymph nodes: Unremarkable. PAGE 1 Signed Report (CONTINUED) Name:VALENTINE MCNALLY [facility] : 1955 Age/S: 66 / F [address] [place] [address] Blvd Unit #: [id number] Loc: [place] [address] Phys: RaineyHeber Acct: [id number] Dis Date: Status: ADM IN PHONE #: [phone] Exam Date: 11/05/2021 1311 FAX #: [phone] Reason: nausea/vomitting EXAMS: CPT CODE: [id number] CT ABD PELVIS W/O CONT 68890 (Continued) Urinary bladder: Unremarkable as visualized. Reproductive: [...] other infectious and noninfectious etiologies. Commonly reported imagingfeatures of COVID-19 pneumonia are present. Other processes such as influenza pneumonia and organizing pneumonia, as can be seen with drug toxicity and connective tissue disease, can cause a similar imaging pattern. (Reference: Carlos) 2. The stomach is moderately distended with fluid. There is noevidence for bowel obstruction. 3. Colonic diverticulosis. 4. Severe atherosclerosis. 5. Atrophic kidneys containing multiple simple cortical cyst compatible with end-stage renal disease. 6. Incidental finding of left adrenal thickening, indeterminate by attenuation values.Consider 12 month follow-up adrenal CT. (Reference: Liban) REFERENCES: 1. Carlos Dent et al., Radiological Society of [place] Expert Consensus Statement on Reporting Chest CT Findings Related to COVID-19. Endorsed by the Society of Thoracic Radiology, the [place] [employer], and RSNA. Published December 13, 2019. 2. Liban PIERCE, et al. Management of Incidental Adrenal Masses: A White Paper of the ACR Incidental Findings Committee. J Am Loren Radiol. 2017;14(8):1649-8611. at 1341 Reported and signed by: Kev Richardson M.D. CC: Ivan Freitas MD; Heber Rainey DO Technologist:Ugo Cardenas RT(R)(CT) CTDI: DLP: Trnscb Date/Time: 11/05/2021 (1341) [id number] Orig Print D/T: S: 11/05/2021 (1341) PAGE 2 Signed Report- NAA ISBELL [id number] 00:00:00 [facility] 1955 Sex: F Name: VALENTINE MCNALLY [facility] : 1955 Age/S: 66 / F [address] [place] [address] U nit #: [id number] Loc: [place] [id number] Phys: Daniel Rahman MD Acct: [id number] Dis Date: Status:ADM IN PHONE #: [phone] Exam Date: 11/05/2021233 FAX #: [phone] Reason: TO RULE OUT DVT EXAMS: CPT CODE: [id number] DUP VEIN JOSEY 18845 PROCEDURE INFORMATION: Exam: US Duplex Lower Extremity [...] focused on the bilateral lower extremity veins. CO MPARISON: No relevant prior studies available. FINDINGS: Right deep veins: The common femoral, femoral, popliteal veins and imaged calf veins are patent without thrombus. Normal Doppler waveforms. Normal compressibility and/or augmentation response. Right superficial veins: Saphenofemoral junction is patent without thrombus. Left deep veins: The common femoral, femoral, popliteal veins and imagedcalf veins are patent without thrombus. Normal Doppler waveforms. Normal compressibility and/or augmentation response. Left superficial veins: Saphenofemoral junction is patent without thrombus. Softtissues: No fluid collections. IMPRESSION: No evidence for acute DVT of either lower extremity. at 0242 Reported and signed by: Rad Noel M.D. CC: Daniel Rahman MD; Ivan Freitas MD Technologist: Eugenia Downey RDMS(AB)(OB) Trnscb Date/Time: 11/05/2021 (241) [email or web address] Orig Print D/T: S: 11/05/2021 (0243) Probe: PAGE 1 Signed Report- CT HEAD/BRAIN W/O [id number] 00:00:00 [facility] VALENTINE [facility] : 1955 Sex: F Name: VALENTINE MCNALLY [facility] Suzie Vasquez : 1955 Age/S: 66 / F [address] [place] [address] Unit #: [id number] Loc: [place] [address] Phys: Daniel Rahman MD Acct: [id number] Dis Date: Status: ADM IN PHONE #: [phone] Exam Date: 11/05/2021350 FAX #: [phone] Reason: h/o confusion.EXAMS: CPT CODE: [id number] CT HEAD/BRAIN W/O CONT 15757 PROCEDURE INFORMATION: Exam: CT Head Without Contrast Exam date and time: 11/05/2021 3:45 AM Age: 66 years old Clinical indication: Altered mental status/memory loss; Confusion or disorientation; Additional info: H/o confusion. TECHNIQUE: Imaging protocol: Computed tomography of the head without contrast. Radiation optimization: All CT scans at this facility use at least one of these dose optimization techniques: automated exposure control;mA and/or kV adjustment per patient size (includes targeted exams where dose is matched to clinicalindication); or iterative reconstruction. COMPARISON: No relevant prior [...] intracranial abnormality. 4. Mild chronic sinusitis. PAGE 1Signed Report (CONTINUED) Name: VALENTINE MCNALLY [facility] [place] : 1955 Age/S: 66 / F [address] [place] [address] Blvd Unit #: [id number] Loc: [place] [address] Phys: Daniel Rahman MD Acct: [id number] Dis Date: Status: ADM IN PHONE #: [phone] Exam Date: 11/05/2021350 FAX #: [phone] Reason: h/o confusion. EXAMS: CPT CODE: [id number] CT HEAD/BRAIN W/O CONT 02573 (Continued) at 0407 Reported and signed by: Donald Jackson M.D. CC: Daniel Rahman MD; Ivan Freitas MD Technologist:RT Syed(R) CTDI: DLP: Trnscb Date/Time: 11/05/2021 (406) [email or web address] Orig Print D/T: S: 11/05/2021 (406) PAGE 2 Signed ReportBASIC METABOLIC [id number] 21:46:00* Test Item Value Reference Range Interpretation Comme nts SODIUM (test code = NA) 137 mEq/L 134-147 N POTASSIUM (test code = K) 5.5 mEq/L 3.4-5.0 H CHLORIDE (test code = CL) 103 mEq/L 100-108 N CARBON DIOXIDE (test code = CO2) 16 mEq/l 21-33 L ANION GAP (test code = GAP) 24 0-20 H GLUCOSE (test code = GLU) 93 mg/dL 70-110 N BLOOD UREA NITROGEN (test code = BUN) 120 mg/dL 7-18 H GLOMERULAR FILTRATION RATE (test code = GFR) 3.2 80-90 L Units of measure = ml/min/1.73 m2 CREATININE (test code = CREAT) 13.8 mg/dL 0.6-1.3 H CALCIUM (test code = CA) 4.7 mg/dL 8.0-10.5 LL Critical result called to HAZEL MORGAN RNby [id number] at 214211/04/21Nurse read back result and tech confirmed it's correct? Y LACTIC DEHYDROGENASE(LDH)2021-11-04 21:46:00* Test Item Value Reference Range Interpretation Comme nts LACTIC DEHYDROGENASE(LDH) (t est code = LDH) 384 IUnits/L 84-246 H [id number] 21:46:00* Test Item Value Reference Range Interpretation Comme nts FERRITIN (test code = JARETH) 2847.4 ng/mL 11.0-306.8 H [id number] 21:22:00* Test Item Value Reference Range Interpretation Comme nts D-DIMER (test code = DDIMER) 2100 ng/mlFEU See_Comment HH Critical result called to TAWNYA FORBES by HENRIETTA at 212011/04/21Nurse read back result and tech confirmed it's correct?Y THROMBOSIS AND/OR PULMONARY EMBOLISM AND THE CLINICAL CUT- OFF VALUE FOR EXCLUSION (500 ng/mL FEU) OF THESE CONDITIONSIS VALIDATED BY THE TENT FINISHER OF THE METHOD. A NEGATIVE D-DIMER RESULT WHEN COMBINED WITH A CLINICALASSESSMENT OF LOW PRETEST PROBABILITY HAS BEEN SHOWN TO HAVEA HIGH NEGATIVE PREDICTIVE VALUE OF DVT OR PE. D-DIMER VALUES >500 ng/mL FEU ARE NOT DIAGNOSTIC FOR DVT, PEor DIC WITHOUT OTHER CONFIRMATORY TESTS AND APPROPRIATECLINICAL EUALUATIONS. [Automated message] The system which generated this result transmitted reference range: <=500. The reference range was not used to interpret this result as normal/abnormal. C REACTIVE [id number] 21:17:00* Test Item Value Reference Range Interpretation Comme nts C REACTIVE PROTEIN (test cod e = CRP) 125.0 mg/L <10.0 H LACTIC [id number] 21:12:00* Test Item Value Reference Range Interpretation Comme nts LACTIC ACID (test code = LACT) 0.5 mmol/L 0.4-1.9 N CBC W/AUTO [id number] 21:04:00* Test Item Value Reference Range Interpretation Comme nts WHITE BLOOD CELL (test code = WBC) 5.4 x10 3/uL 4.5-11.0 N RED BLOOD CELL (test code = RBC) 3.63 x10 6/uL 3.54-5.02 N HEMOGLOBIN (test code = HGB) 10.8 g/dL 11.0-15.0 L HEMATOCRIT (test code = HCT) 34.0 % 33.0-45.0 N MEAN CELL VOLUME (test code = MCV) 93.7 fL 81.0-99.0 N MEAN CELL HGB (test code = MCH) 29.8 pg 27.0-33.0 N MEAN CELL HGB CONCETRATION (test code = MCHC) 31.8 g/dL 33.0-37.0 L RED CELL DISTRIBUTION WIDTH CV (test code = RDW) 15.3 % 11.5-14.5 H PLATELET COUNT (test code = PLT) 132 x10 3/uL 150-400 L NEUTROPHIL % (test code = NT%) 76.9 % 56.0-77.0 N LYMPHOCYTE % (test code = LY%) 18.1 % 14.0-32.0 N NEUTROPHIL # (test code = NT#) 4.16 x10 3/uL 2.0-7.6 N LYMPHOCYTE # (test code = LY#) 0.98 x10 3/uL 1.0-3.8 L MANUAL DIFF REQUIRED (test c ode = MDIFF) NO RED CELL DISTRIBUTION WIDTH SD (test code = RDW-SD) 52.6 fL 37.0-54.0 N MEAN PLATELET VOLUME (test c ode = MPV) 10.5 fL 7.0-9.0 H IMMATURE GRANULOCYTE % (test code = IG%) 0.2 % 0.0-2.0 N MONOCYTE % (test code = MO%) 4.6 % 4.8-9.0 L EOSINOPHIL % (test code = EO%) 0.0 % 0.3-3.7 L BASOPHIL % (test code = BA%) 0.2 % 0.0-2.0 N NUCLEATED RBC % (test code = NRBC%) 0.0 % 0-0 N IMMATURE GRANULOCYTE # (test code = IG#) 0.01 x10 3/uL 0.00-0.03 N MONOCYTE # (test code = MO#) 0.25 x10 3/uL 0.1-0.8 N EOSINOPHIL # (test code = EO#) 0.00 x10 3/uL 0.0-0.2 N BASOPHIL # (test code = BA#) 0.01 x10 3/uL 0.0-0.2 N NUCLEATED RBC # (test code = NRBC#) 0.00 x10 3/uL 0.0-0.1 N LIPOPROTEIN [id number] 15:05:00* Test Item Value Reference Range Interpretation Comme nts LIPOPROTEIN LDL (test code = LDL) 54.6 mg/dL 0-100 N <100 [id number] 0-129 NEAR OPTIMAL/ABOVE [id number] HIGH>YH=829 VERY HIGH*Guidelines provided by the National Cholesterol EducationProgram Adult Treatment Panel III TROP-I HIGH [id number] 14:40:00* Test Item Value Reference Range Interpretation Comme [facility] TROP-I HIGH SENSITIVITY (test code = TROPIHS) 81 ng/L 0-34 H CAUTION: Units o f the current test methodology (ng/L) differfrom the prior test methodology (ng/mL) by a factor of 1000. 99th Percentile Upper Reference Limit (URL): Females: 34 ng/LMales: 54 ng/L In order to distinguish acute elevations of high sensitivitytroponin from other clinical conditions, the FourthUniversal Definition of Myocardial Infarction stressesclinical assessment and the demonstration of a rise and/orfall in serial troponin results above the URL. These results were obtained using Siemens Bioxodes IM TnIHreagent. Results from different methodologies should not becompared to one another as quantitative results and URLs mayvary by method. BNP [id number] 11:15:00* Test Item Value Reference Range Interpretation Comme [facility] BNP RAPID (test code = BNPRAP) 1950.0 pg/mL 0.0-100.0 H Performed by [employer] service control operator at [facility] TROPONIN-I [id number] 11:14:00* Test Item Value Reference Range Interpretation Comme [facility] TROPONIN-I RAPID (test code = TROPIRAP) 0.09 ng/mL 0.00-0.08 HH [facility] sky [facility]son [facility], critical value notification anddocumentation is done by nursing staff. Negative: <= 0.08 Positive: >= 0.09An elevated troponin value alone is not sufficient todiagnose a myocardial infarction. Rather, the patient sclinical presentation (history, physical exam) and ECGshould be used in conjunction with troponin in thediagnostic evaluation of suspected myocardial infarction. Aserial sampling protocol is recommended to facilitate the identification of temporal changes in troponin levels characteristic of ME. Coronavirus 2019 nCoV [id number] 10:53:00* Test Item Value Reference Range Interpretation Comme nts Coronavirus 2019 nCoV Bedside (test code = [id number]) Positive Negative A Performed by sky lawson at [facility] [employer] NOW utilizes isothermal [place] EnzymeAmplification Reaction (NEAR) technology in the qualitativedetection of infectious diseases. With NEAR technology,amplified target detection is achieved with the use offluorescently labeled molecular beacons, comparable to PCRtechniques -----Negative results should be treated as presumptive and, ifinconsistent with clinical signs and symptoms or necessaryfor patient management, should be tested with an alternativemolecular assay. Negative results do not preclude [id number] and should not be used as the sole basis forpatient management decisions. Negative results should beconsidered in the context of a patient's recent exposures,history, presence of clinical signs and symptoms consistentwith COVID-19. BASIC METABOLIC [id number] 10:49:00* Test Item Value Reference Range Interpretation Comme nts SODIUM (test code = NA/ABG) 134 MEQ/L 134-147 N POTASSIUM (test code = K/ABG) 5.7 MEQ/L 3.4-5.0 H CHLORIDE (test code = CL/ABG) 107 MEQ/L 100-108 N CREATININE ABG (test code = CREAABG) > 15.0 mg/dL 0.6-1.0 H POC IONIZED CALCIUM (test co de = POCCA) 0.64 MMOL/L 1.12-1.32 L POC GLUCOSE (test code = POCGLU) 166 MG/DL - XR CHEST 1 [id number] 00:00:00 [facility] VAL[facility]INE [facility] : 1955 Sex: F FAX: Anthony Shaikh MD [place]: St: PRE Name: VALENTINE MCNALLY [place] [facility] : 1955 Age/S: 66/F [address] [facility] Unit #: [id number] Loc: [place] [address] Phys: Anthony Leon MD Acct: [id number] Dis Date: Status: PRE ER PHONE #: Exam Date: 11/04/2021 1028 FAX #: Reason: Weakness EXAMS: CPT CODE: [id number] XR CHEST 1 V 56328 PROCEDURE INFORMATION: Exam: XR Chest Exam date and time: 11/04/2021 10:25 AM Age: 66 years old Clinical indication: Wheezing; Prior surgery; Surgery date: 1-6 months; Surgery type: Dialysis; Additional info: Weakness TECHNIQUE: Imaging protocol: XR of the chest.Views: 1 view. COMPARISON: No relevant prior studies available. FINDINGS: Lungs: Bilateral right greater than left patchy airspace opacities. Pleural spaces: No pleural effusion. No pneumothorax. Heart/Mediastinum: Heart size is mildly enlarged. Aortic calcifications. Bones/joints: No acute osseousabnormality. Soft tissues: Right upper extremity vascular stents noted. IMPRESSION: 1. Patchy bilateral pulmonary opacities. Differential considerations include edema and multifocal pneumonia. at 1054 Reported and signed by: Alisa Moreno M.D. CC: Anthony Leon MD Technologist: Jyotsna Knight, RT(R)(CT) Trnscrd Date/Time/By: 11/04/2021 (1054) : By: [email or web address] Orig Print D/T: S: 11/04/2021 (2241) PAGE 1 Signed ReportPOCT GLUCOSE (AUTOMATED)2021-06-20 19:09:24* Test Item Value Reference Range Interpretation Comme nts POCT GLU (test code = 0808411843) 93 mg/dL 70-110 Lab Interpretation (test cod e = 33784-3) [facility] (66464)2021-06-20 18:00:24* Test Item Value Reference Range Interpretation Comme nts NA (test code = 5774748403) 139 mmol/L 135-145 K (test code = 7819178601) 3.1 mmol/L 3.5-5.0 L CL (test code = 6196297285) 102 mmol/L 98-108 CO2 TOTAL (test code = 7633843826) 26 mmol/L 23-31 AGAP (test code = 6473814246) 2-16 BUN (test code = 6018331133) 29 mg/dL 7-23 H GLUCOSE (test code = 7026282742) 41 mg/dL 70-110 LL CREATININE (test code = 4018138370) 7.61 mg/dL 0.50-1.04 H TOTAL BILI (test code = 1767193307) 1.0 mg/dL 0.1-1.1 CALCIUM (test code = 9784765286) 9.5 mg/dL 8.6-10.6 T PROTEIN (test code = 5092521720) 7.3 g/dL 6.3-8.2 ALBUMIN (test code = 4847690290) 4.1 g/dL 3.5-5.0 ALK PHOS (test code = 3295865854) 85 U/L 34-122 ALTv (test code = 1742-6) 16 U/L 5-35 AST(SGOT) (test code = 0906311580) 35 U/L 13-40 eGFR (test code = 1075912759) mL/min/1.73m2 CEZAR (test code = CEZAR) Association of [...] or abnormalities in imaging tests). Lab Interpretation (test code = 75330-7) [facility] [id number] 17:53:17* Test Item Value Reference Range Interpretation Comments TROPONIN I (test code = 8796947170) 0.031 ng/mL See_Comment [Automated message] The system which generated this result transmitted reference range: <=0.034. The reference range was not used to interpret this result as normal/abnormal. CEZAR (test code = CEZAR) Reference (Normal) Range (defined by the 99th percentile reference [...] to patient's use of biotin. Lab Interpretation (test code = 76883-5) Normal [facility] WITH [id number] 17:49:55* Test Item Value Reference Range Interpretation Comme nts WBC (test code = 6690-2) See_Comment [Automated [employer]] The system which generated this result transmitted reference range: 4.30 - 11.10 10*3/?L. The reference range was not used to interpret this result as normal/abnormal. RBC (test code = 789-8) See_Comment L [Automated [employer]] The system which generated this result transmitted reference range: 3.93 - 5.25 10*6/?L. The reference range was not used to interpret this result as normal/abnormal. HGB (test code = 718-7) 10.1 g/dL 11.6-15.0 L HCT (test code = 4544-3) 31.8 % 35.7-45.2 L MCV (test code = 787-2) 97.8 fL 80.6-95.5 H MCH (test code = 785-6) 31.1 pg 25.9-32.8 MCHC (test code = 786-4) 31.8 g/dL 31.6-35.1 RDW-SD (test code = 55490-5) 52.1 fL 39.0-49.9 H RDW-CV (test code = 788-0) 14.4 % 12.0-15.5 PLT (test code = 777-3) See_Comment [Automated [employer]] The system which generated this result transmitted reference range: 166 - 358 10*3/?L. The reference range was not used to interpret this result as normal/abnormal. MPV (test code = 25887-2) 10.6 fL 9.5-12.9 NRBC/100 WBC (test code = 7834129359) See_Comment [Automated me ssage] The system which generated this result transmitted reference range: 0.0 - 10.0 /100 WBCs. The reference range was not used to interpret this result as normal/abnormal. NRBC x10^3 (test code = 7394449874) <0.01 See_Comment [Automated messa ge] The system which generated this result transmitted reference range: 10*3/?L. The reference range was not used to interpret this result as normal/abnormal. GRAN MAT (NEUT) % (test code = 770-8) 75.9 % IMM GRAN % (test code = 7961057287) 0.70 % LYMPH % (test code = 736-9) 16.3 % MONO % (test code = 5905-5) 5.6 % EOS % (test code = 713-8) 1.0 % BASO % (test code = 706-2) 0.5 % GRAN MAT x10^3(ANC) (test code = 3222997018) 6.63 10*3/uL 1.88-7.09 IMM GRAN x10^3 (test code = 0819825465) 0.06 10*3/uL 0.00-0.06 LYMPH x10^3 (test code = 731-0) 1.42 10*3/uL 1.32-3.29 MONO x10^3 (test code = 742-7) 0.49 10*3/uL 0.33-0.92 EOS x10^3 (test code = 711-2) 0.09 10*3/uL 0.03-0.39 BASO x10^3 (test code = 704-7) 0.04 10*3/uL 0.01-0.07 Lab Interpretation (test code = 53987-9) [facility]normal [facility] THRMPLAS [id number] 17:44:12* Test Item Value Reference Range Interpretation Comme nts APTT Patient (test code = 3173-2) See_Comment [Automated message] The system which generated this result transmitted reference range: 23 - 38 Seconds. The reference range was not used to interpret this result as normal/abnormal. CEZAR (test code = CEZAR) The [facility] patient population mean normal value for aPTT is 30 seconds. Lab Interpretation (test code = 73969-1) [facility] Heights[facility] TIME / [id number] 17:42:14* Test Item Value Reference Range Interpretation Comme nts PROTIME PATIENT (test code = 5964-2) See_Comment [Automated [employer]] The system which generated this result transmitted reference range: 12.0 - 14.7 Seconds. The reference range was not used to interpret this result as normal/abnormal. INR (test code = 6301-6) Normal INR <1.1; Warfarin Therapeutic range 2.0 to 3.0 or 2.5 to 3.5, depending upon the indications. Lab Interpretation (test code = 54868-4) [facility] Whole [id number] 17:06:14* Test Item Value Reference Range Interpretation Comme nts LACTIC ACID (test code = 4519130940) 1.72 mmol/L 0.50-2.20 Lab Interpretation (test cod e = 02466-6) [facility] THORAX WO [id number] 17:42:52 HISTORY: Hilar mass. TECHNIQUE: 64-Multidetector noncontrast enhanced CT of the chest isobtained. FINDINGS: No prior studies available for comparison. Thyroid gland is enlarged and there is a large heterogeneous low-density 2cm mass in the right lobe. Trachea and central bronchial airways appear normal. No enlarged lymphnodes are seen in the raya or the mediastinum. Extensive coronary atherosclerosis is noted involving LAD and LCx coronaryarteries. Calcification also seen at some of the smallerarteries in theright breast. A metallic stent is [...] lesions visualized.Cholecystectomy noted. CONCLUSIONS:1. No acute intrathoracic ab normality detected. Specifically no lung massor hilar mass visualized.2. No enlarged hilar or mediastinal lymph nodes.3. Enlarged thyroid gland with 2 cm size mass in the right lobe. Thyroidultrasound study recommended. [facility], Radiant Results Inft User - 07/23/2020 11:44 AM CSTHISTORY: Hilar mass.TECHNIQUE: 64- Multidetector noncontrast enhanced CT of the chest isobtained.FINDINGS: No prior studiesavailable for comparison.Thyroid gland is enlarged and there is a [...] effusion or pericardialeffusion. Minimal fibrosis is noted inthe right middle lobe and in theanterior basal segment of right lower lung.Degenerative changes noted in the lower thoracic spines. No compressionfracture deformity or any aggressive bone lesions visualized.Cholecystectomy noted.CONCLUSIONS:1. No acute intrathoracic abnormality detected. Specifically no lung massor hilar mass visualized.2. No enlarged hilar or mediastinal lymph nodes.3. Enlarged thyroid gland with 2 cm size mass in the right lobe. Thyroidultrasound study recommended.[facility]MR LUMBAR SPINE WO CONTRAST 2020-07-02 15:34:03HISTORY: Back pain running down the lateral right leg. History of multiplefalls. TECHNIQUE: Sagittal T2 FRFSE, T1, STIR and axial T2 FRFSE T1 studies oflumbar spines are obtained. Additional coronal T2 FRFSE study is alsoobtained. FINDINGS: Mild lumbar levoscoliosis [...] the left adrenal gland. T11-T12, T12-L1, L1-L2: Unremarkable. L2- L3: Minimal fluid in the right facet joint. L3-L4: Minimal fluid in both facet joints and slightly thickened ligamentumflavum. L4-L5: Bilateral facet arthritis with moderate amount of fluid in bothfacet joints and slightly thickened ligamentum flavum. L5-S1: Mild bilateral facet arthritis with fluid in both facet joints andthickened ligamentum flavum. Small lesions are seen in L3, L4, L 5 and S1/S3 vertebral bodies, consistentwith benign lipomas. CONCLUSIONS:1. Exaggerated lumbar lordosis with mild levoscoliosis.2. No lumbar disc herniation at any of the lumbar levels. No spinal orforaminal stenosis.3. Multilevel facet arthritis, more at L4-L5 and L5-S1. [facility], Radiant Results InftUser - 07/02/2020 10:35 AM CDTHISTORY: Back pain running down the lateral right leg. History of multiplefalls.TECHNIQUE: Sagittal T2 FRFSE, T1, STIR and axial T2 FRFSE T1 studies oflumbar spines are obtained. Additional coronal T2 FRFSE study is alsoobtained.FINDINGS: Mild lumbar levoscoliosis and slightly exaggerated lumbarlordosis noted. No acute compression fracture or aggressive lesions of the bones detected. Spinal canal appears to be of [...] fluid in the right facet joint.L3-L4: Minimal fluidin both facet joints and slightly thickened ligamentumflavum.L4-L5: Bilateral facet arthritis with m oderate amount of fluid in bothfacet joints and slightly thickened ligamentum flavum.L5-S1: Mild bilateral facet arthritis with fluid in both facet joints andthickened ligamentum flavum.Small lesionsare seen in L3, L4, L5 and S1/S3 vertebral bodies, consistentwith benign lipomas.CONCLUSIONS:1. Exaggerated lumbar lordosis with mild levoscoliosis.2. No lumbar disc herniation at any of the lumbar levels. No spinal orforaminal stenosis.3. Multilevel facet arthritis, more at L4-L5 and L5-S1.[facility] CERVICAL SPINE WO [id number] 15:04:27HISTORY: Neck pain radiating down into the right arm. TECHNIQUE: T1/T2/STIR sagittal and T1/T2 FRFSE/2D MERGE axial studies ofcervical spines were obtained. FINDINGS: Reversal of normal cervical lordosis could be secondary to neckmuscle spasm. No compression fracture or abnormal marrow changes of thebones detected. Spinal canal is of adequate size and no intrinsic cervicalcord pathology detected.The anatomy of the craniocervical junction appearsnormal. C2-C3: Normal. C3-C4: Normal. C4-C5: Milddegenerative disc disease with small osteophytes along theventral [...] the spinal canal or into the neural foramina. C7-T1, T1-T2, T2-C3: Unremarkable. CONCLUSIONS:1. Reversal [...] gland, particularly theright lobe and there is acomplex irregular shaped 2 cm size mass in theright lobe. Mild leftward deviation of the trachea noted. For completeevaluation, thyroid ultrasound study recommended. [facility], Radiant Results Inft User -07/02/2020 10:05 AM CDTHISTORY: Neck pain radiating down into the right arm.TECHNIQUE: T1/T2/STIR sagittal and T1/T2 FRFSE/2D MERGE axial studies ofcervical spines were obtained.FINDINGS: Reversal ofnormal cervical lordosis could be secondary to neckmuscle spasm. No compression fracture or abnormal marrow changes of thebones detected. Spinal canal is of adequate size and no intrinsic cervicalcord pathology detected. The anatomy of the craniocervical junction appearsnormal.C2-C3: Normal.C3-C4: [...] into the neural foramina.C7-T1, T1-T2, T2-C3: Unremarkable.CONCLUSIONS:1. Reversalof normal cervical lordosis could be secondary to neck musclespasm.2. Mild changes of degenerative disc disease at C5-C6, less at C4-C5,C6-C7. No significant bulging of the disc into the spinal canalat any ofthe cervical levels.3. No cord compression or nerve root compression detected at any othercervical levels.4. Incidental note of moderately enlarged thyroid gland, particularly theright lobe and there is a complex irregular shaped 2 cm size mass in theright lobe. Mild leftward deviation of the trachea noted. For completeevaluation, thyroid ultrasound study recommended.[facility] HeightsXR KNEE 3 VW [id number] 13:56:35HISTORY: ?Pain. FINDINGS: AP, lateral, oblique views of right knee showed no acute fractureor dislocation. No significant knee joint effusion or aggressive bonelesions seen. Mild tricompartmental degenerative arthritis is noted withinthe form of small osteophytes along the articular edges of the bon eswithout significant narrowing of the joint spaces. Extensive arterial sclerosis noted with calcifications in multiple smalland medium size arteries. Please correlate with clinical history forchronic poorly controlled diabetes. CONCLUSIONS: Mild tricompartment degenerative arthritis of right knee.[facility], Radiant Results Inft User - 07/02/2020 8:57 AM CDTHISTORY: Pain.FINDINGS: AP, lateral, oblique views of right knee showed no acute fractureor dislocation. No significant knee joint effusion or aggressive bonelesions seen. Mild tricompartmental degenerative arthritis is noted withinthe form ofsmall osteophytes along the articular edges of the boneswithout significant narrowing of the joint spaces.Extensive arterial sclerosis noted with calcifications in multiple smalland medium size arteries. Please correlate with clinical history forchronic poorly controlled diabetes.CONCLUSIONS: Mild tricompartment degenerative arthritis of right knee.[facility] Notes Date/Time Note Provider Source 2021-12-27 00:33:00 [id number] DUNG Zuleyka on [address] [place], [place] [address] PATIENT NAME: VALENTINE MCNALLY ADMIT DATE: 11/04/21 ACCOUNT NO: [id number] ROOM NO: G.C136 AGE: 66 REPORT TYPE: 360 - QUERY RESPONSE DOCUMENT SEX: F ADMITTING PHYSICIAN:Ivan Freitas MD ATTENDING PHYSICIAN:Ivan Freitas MD Provider Query QUERY TEXT: POA Indicator 360MD Query related questions should be directed to: [facility] [place] [facility] Coding Query Helpline [phone] Please indicate if the diagnosis of viral sepsis was present on admission? The patient's Clinical Indicators include: Viral sepsis from COVID Query Response 12/05/21 Options provided: -- Yes -- No -- W -- Other - I will add my own diagnosis -- Dismiss - Not applicable / Not valid -- Dismiss - Clinically unable to determine / Unknown -- Assign to another provider QUERY RESPONSE: Yes- The condition was present at the time of inpatient admission. Query created by: Ilene Benson on 12/05/2021 10:18 AM at 0033 PATIENT NAME: VALENTINE MCNALLY [facility] 2021-12-05 06:12:00 [id number] [facility] Danitza n [address] [place], [place] [address] PATIENT NAME: VALENTINE MCNALLY ADMIT DATE: 11/04/21 ACCOUNT NO: [id number] ROOM NO: G.C136 AGE: 66 REPORT TYPE: 360 - QUERY RESPONSE DOCUMENT SEX: F ADMITTING PHYSICIAN:Ivan Freitas MD ATTENDING PHYSICIAN:Ivan Freitas MD Provider Query QUERY TEXT: Clarification Infectious Status POA 360MD Query related questions should be directed to:[facility] [place] [facility] Coding Query Helpline Based on your clinical judgment, can you provide the known or suspected condition(s) that represent(s) the clinical indicators listed below and if the condition(s) are present on admission (POA)? The following definitions are provided based on industry literature and in collaboration with [facility] Clinical Services Group for your reference only: --Localized Infection - An infection that affects only one organ or body part (e.g., UTI, Pneumonia) --Bacteremia - Nonspecific laboratory finding of bacteria in the blood --Sepsis - A presumed or confirmed systemic response to infectious process with >2 clinical indicators such as: Temperature >38.3C or <36.0C, tachycardia, > 20 respiratory rate, WBC >12,000 or < 4,000 or > 10% bands --Severe Sepsis - Sepsis with additional clinical indicators such as Organ failure with any of the following: systolic BP < 90 or MAP < 65 or SBP decrease more 40 mm Hg from last recorded SBP considered normal for patient, Creatinine > 2.0, urine output < 0.5 ml/kg/hour for 2 hours, Bilirubin > 2 mg/dL, platelet count < 100,000, INR > 1.5, PTT > 60 sec, lactate > 2 mmol/L --Septic Shock - Severe Sepsis with Lactic acid > 4 mmol/L or persistent hypotension The patient's Clinical Indicators include: COVID 19 pneumonia-Discharge Summary 11/11/2021 (1) Free text DxA P notes: Metabolic encephalopathy * CT head/PT/OT eval. probably multifactorial from all above. Hospitalist Progress Note 11/10/2021 (2) COUGH, CONGESTION, SOB, FEVER X 4-Rapid Initial Assessment 11/04/2021 (3) Fever greater than 100.4 F or 38.0 C: Patient states having a fever: Options provided: -- Sepsis, Please specify POA status (i.e., Y=Yes, N=No, W=Unable to clinically determine) and causative organism if known. -- Severe Sepsis, Please specify POA status (i.e., Y=Yes, N=No, W=Unable to clinically determine) and causative organism if known. -- Severe Sepsis with septic shock, Please specify POA status (i.e., Y=Yes, N=No, W=Unable to clinically determine) and causative organism if known. -- Localized infection, Please specify the infection and POA status (i.e., Y=Yes, N=No, W=Unable to clinically determine). -- Other - I will add my own diagnosis -- Dismiss - Not applicable / Not valid -- Dismiss - Clinically unable to determine / Unknown -- Assign to another provider QUERY RESPONSE: Viral sepsis from COVID Query created by: Laura Keyes on 11/14/2021 7:46 AM at 0612 PATIENT NAME: VALENTINE MCNALLY [facility] 2021-11-11 16:57:00 [id number] [place] [address] PATIENT NAME: VALENTINE MCNALLY ADMIT DATE: 11/04/21 ACCOUNT NO: [id number] ROOM NO: [facility] AGE: 66 REPORT TYPE: eCARDIAC STRESS TEST SEX: F ADMITTING PHYSICIAN:Ivan Freitas MD ATTENDING PHYSICIAN:Ivan Freitas MD *[facility] [address] [place] [address] Myocardial Perfusion Imaging Regadenoson (Lexiscan) Patient: Valentine Mcnally Study Date: 11/11/2021 Height: 0 in / 0 Amairani cm URN: Weight: 0 lb / 0 kg : 1955 Location: [facility] BMI/BSA: Age: 66 Gender: F Account#: *Interpreting Physician: * Henry Melara MD Nurse: Glynn Kern NP Indications: Shortness of breath. Risk factors: Hypertension. Diabetes mellitus. Dyslipidemia. Conclusions Impressions: No ST changes or chest pain. Study data: Location: Stress laboratory. Consent: The risks, benefits, and alternatives to the procedure were explained to the patient and informed consent was obtained. Study completion: The patient tolerated the procedure well. There were no complications. Procedure data: Initial setup. The patient was brought to the laboratory. A baseline ECG was recorded. Intravenous access was obtained. ECG and blood pressure measurements were monitored. PATIENT NAME: VALENTINE MCNALLY Regadenoson (Lexiscan) stress test. Regadenoson (Lexiscan) was administered by intravenous bolus, followed by a 5 ml saline flush. The total dose was 0.4mg. over 10.00 secPharmacologic stress was used because the patient was physically unable to exercise. Cardiac stress table: + +--+ + + [...] of maximal predicted heart rate). The maximal predicted heart rate was 152 bpm.The target heart rate was 129 bpm.The target heart rate was not achieved. The rate-pressure product for the peak heart rate and blood pressure was 9240 mm Hg/min. Stress ECG: Savage scoring: exercise time of 0.17 min; ; . Prepared and electronically signed by: Henry Melara MD 11/11/2021 16:57 at 1657 PATIENT NAME: VALENTINE MCNALLY [facility] 2021-11-11 13:11:00 [place] [address] PATIENT NAME: VALENTINE MCNALLY ADMIT DATE: 11/04/21 ACCOUNT NO: [id number] ROOM NO: G.C136 AGE: 66 REPORT TYPE: eNUCLEAR CARDIOLOGY REPORT SEX: F ADMITTING PHYSICIAN:Ivan Freitas MD ATTENDING PHYSICIAN:Ivan Freitas MD *[facility] [address] [place] [address] Myocardial Perfusion Imaging Regadenoson (Lexiscan) Rest/Stress Patient: Valentine Mcnally Study Date: 11/11/2021 Height: / URN: Weight: / : 1955 Location: [facility] BMI/BSA: Age: 66 Gender: F Account#: *Interpreting Physician: * Henry Melara MD *Technologist: * Mary Grace Echeverria [facility] ; Jacklyn Leyva [facility] Indications: ELEVATED TROPONIN. Conclusions Impressions: 1. No significant perfusion abnormalities are noted. 2. Normal myocardial perfusion imaging. 3. Left ventricular ejection fraction is within normal limits by visual estimate. Study data: Nuclear components: Rest/stress imaging. Location: Stress laboratory. Consent: The risks, benefits, and alternatives to the procedure were explained to the patient and informed consent was obtained. PATIENT NAME: VALENTINE MCNALLY Procedure data: Initial setup. The patient was brought to the laboratory. A baseline ECG was recorded. Intravenous access was obtained. ECG and blood pressure measurements were monitored. Initial setup. The patient was brought to the laboratory. A baseline ECG was recorded. Intravenous access was obtained. ECG and blood pressure measurements were monitored. Regadenoson (Lexiscan) stress test. Regadenoson (Lexiscan) was administered by intravenous bolus, followed by a 5 ml saline flush. The total dose was 0.4mg. over 10.00 sec Isotope administration: + + +----- + *Stage *Rest *Stress * + + +----- + *Agent *Tc-99m tetrofosmin*Tc-99m tetrofosmin* + + +----- + *Injected dose *10 mCi *30 mCi * + + +----- + *Date *11/11/2021 *11/11/2021 * + + +----- + *Injection time *08:10 AM *08:52 AM * + + +----- + *Route *IV *IV * + + +----- + *Imaging time *08:20 AM *09:05 AM * + + +----- + *Injecting Tech initials*VA *VA * + + +----- + *Repair Tech initials *DT *DT * + + +----- + Image properties: Gated imaging was performed, with the patient in the supine position(s). Cardiac stress table: +--------+ + *Stage *Symptoms * +--------+ + *Baseline*No symptoms.* +--------+ + Myocardial perfusion imaging: The summed perfusion score measured 13 during stress and 12 at rest, with a difference of 3. The TID ratio is 0.99. No significant perfusion abnormalities. Rest: LV regional perfusion: Moderately reduced perfusion of the mid-apical inferior, mid inferolateral, and apical myocardium; mildly PATIENT NAME: VALENTINE MCNALLY reduced perfusion of the apical anterior, basal inferior, basal inferolateral, and apical lateral myocardium. Perfusion score: 12. Stress: LV regional perfusion: Moderately reduced perfusion of the mid-apical inferior, mid inferolateral, apical septal, and apical myocardium; mildly reduced perfusion of the apical anterior, mid anterolateral, and apical lateral myocardium. Perfusion score: 13. Reversibility: LV regional perfusion: Moderately reduced perfusion of the apical septal myocardium; mildly reduced perfusion of the mid anterolateral myocardium. Perfusion score: 3. Vascular region quantitation: +--------+ + + +------ ------+ * *LAD extent*LCx extent*RCA extent*Total extent* +--------+ + + +------ ------+ *Stress *32 *33 *42 *33 * +--------+ + + +------ ------+ *Rest *16 *18 *37 *22 * +--------+ + + +------ ------+ *Ischemic*26 *19 *19 *20 * +--------+ + + +------ ------+ Gated SPECT: The calculated left ventricular ejection fraction during stress is 42 %. Left ventricular ejection fraction is within normal limits by visual estimate. Prepared and electronically signed by: Henry Melara MD 11/11/2021 13:11 at 1311 PATIENT NAME: VALENTINE MCNALLY [facility] 2021-11-11 12:56:00 [facility] ([facility] Discharge Summary REPORT#:[id number] REPORT STATUS: Signed DATE:11/11/21 TIME: 1256 PATIENT: VALENTINE MCNALLY UNIT #: [id number] ROOM/BED: [place] [id number] : 53 AGE: 66 SEX: F ATTEND: Ivan Freitas MD ADM AUTHOR: Heber Rainey DO * ALL edits or amendments must be made on the electronic/computer document * General Information Free Text A P: Patient seen and examined on 11/11/2021, denies any new complaints, would like to go home, awaiting stress test plan for today. Subsequently discussed case with cardiology and cleared for discharge and outpatient follow-up. Awaiting hemodialysis plan for today Date [...] sister states pt IS VACCINATED with j/j vaccine x2. * Now on room air, discharge for a total of 10 days of Decadron Hyperkalemia -resolved * HD, nephrology following Hypoxia -currently on room air * abnormal CXR * pulmonary following, history of tobacco abuse, cleared by pulmonology for discharge and outpatient follow-up Elevated troponin I level * stress test normal, being followed and monitored by cardiology HTN (hypertension) * BP improved * On valsartan, Coreg, as well as amlodipine, continue to monitor Diabetes -blood glucose controlled * Continue SSI. Metabolic encephalopathy * CT head/PT/OT eval. probably multifactorial from all above. Seen by ID Nausea and vomiting * CT of the abdomen pelvis reviewed, symptoms improved, advance to cardiac diet * Gastroenterology following, supportive care with antiemetics as needed End-stage renal disease * HD TTS per nephrology, plan for hemodialysis today prior to discharge DVT prophylaxis: Heparin subcutaneous Disposition: Conditional discharge order placed, awaiting hemodialysis Med Rec Med Rec Discharge meds: Stop taking the following medications: ISOSORBIDE MONONITRATE SR (IMDUR) 60 MG TAB.SR.24H 60 MILLIGRAM ORAL DAILY. [AMLODIPINE/BESYLATE] DAILY. Continue taking these medications: ERGOCALCIFEROL (VITAMIN D2) 50,000 UNIT CAP 50,000 UNITS ORAL EVERY 7 DAYS. ACETAMINOPHEN/CODEINE (TYLENOL WITH CODEINE 300-30 MG/12.5ML) 300 MG-30 MG/12.5 [...] medications: ISOSORBIDE MONONITRATE SR (IMDUR) 120 MG TAB.SR.24H 120 MILLIGRAM ORAL DAILY. Qty = 30 [...] 11/11 1420 O2 Delivery Room air 11/11 142 Temp 98.1 11/11 1420 Pulse 66 11/11 [...] normal ear left, normal ear right, normal nose Neck: full range of motion, no JVD Cardiovascular: normal heart sounds, regular rate rhythm Respiratory: clear to auscultation, symmetric expansion, no distress Abdomen: non-tender, normal bowel sounds, soft, no distention Extremities: no clubbing, no cyanosis, no edema Neuro/CONSOLE ASSEMBLER: non focal, alert and oriented x3 Skin: dry, no rash Discharge Instructions PCP )( Follow up labs, proc, tx: Continue to self isolate for at least 20 days from onset of symptoms. Finish course of Decadron. Continue dialysis as previously scheduled. Follow up with specialists as directed. Encourage smoking cessation. If you develop UTI symptoms, obtain urinalysis with PCP or return to the ER. Continue to monitor and keep a log of your blood sugars. )( Discharge to: [facility] Discharge Instructions Additional Discharge Routines: PCP Follow-Up, Jewelry Bench Molder Follow-Up, F/U Labs/ Procedures )( Diet: Diabetic [...] or Older Discussed with: surrogate decis. maker at 1806 RPT #:[id number] END OF REPORT [facility] 2021-11-11 11:22:00 [facility] Cardiology Progress Note REPORT#:[id number] REPORT STATUS: Signed DATE:11/11/21 TIME: 1121 PATIENT: VALENTINE MCNALLY UNIT #: [id number] ROOM/BED: [place] [phone] : 53 AGE: 66 SEX: F ATTEND: Ivan Freitas MD ADM AUTHOR: Karyn Oneill NP * ALL edits or amendments must be made on the electronic/computer document * Subjective Chief complaint: "when am I going?" Patient reports: No: chest pain, headache, palpitations, shortness of breath. Nursing reports: No: complaints. Comments: Pt is in RA, plan HD at bedside today. Objective General VS/I O: Vital Signs: Date Time Temp Pulse Resp B/P B/P Pulse O2 O2 Flow FiO2 Mean Ox Delivery Rate 11/11 1042 [...] Isosorbide Mononitrate (Imdur 30 mg) 120 MG DAILY PO Regadenoson (LEXISCAN SYRINGE) 0 .STK-MED ONE IV (DC) Famotidine (PEPCID) 20 MG Q24H PO Valsartan (DIOVAN 160MG TAB) 160 MG BID PO Amlodipine Besylate (NORVASC) 10 MG DAILY PO Simvastatin (SIMVASTATIN) 10 MG BEDTIME PO Calcium Acetate (CALCIUM ACETATE) 1,334 MG C MEALS PO Hydralazine HCl (APRESOLINE) 10 MG Q4H PRN PRN PO Aspirin (ASPIRIN) 81 MG DAILY PO Furosemide (LASIX) 40 MG DAILY PO Carvedilol (COREG) 25 MG BID MEALS PO Insulin Human Lispro (HUMALOG) 0 AC HS SUBQ Acetaminophen (TYLENOL) 650 MG Q4H PRN PRN PO Dexamethasone (DECADRON) 6 MG DAILY PO Dextrose/Water (DEXTROSE 50% W SYRINGE) 25 ML ASDIR PRN IV (CKD) Dextrose/Water (DEXTROSE 50% W SYRINGE) 50 ML ASDIR PRN IV (CKD) Glucagon (GLUCAGON) 1 MG ASDIR PRN IM Heparin Sodium (HEPARIN 5000 UNITS/ML) 5,000 UNIT Q8H SUBQ Ondansetron HCl (ZOFRAN) 4 MG Q4H PRN PRN IV Albumin Human (ALBUMINAR-25%) 12.5 GM ASDIR PRN IV Lidocaine HCl (LIDOCAINE HCL/PF) 0.5 ML ASDIR PRN I-DERMAL (CKD) Mannitol (MANNITOL 25% 12.5GM/50ML) 12.5 GM ASDIR PRN IV Sodium Chloride (SODIUM CHLORIDE 0.9%) 2,000 ML ASDIR PRN IV Sodium Chloride (SODIUM CHLORIDE) 10 ML ASDIR PRN IV Sodium Chloride (SODIUM CHLORIDE 0.9%) 250 ML ASDIR PRN IV Physical Exam General appearance: alert, awake, oriented, no acute distress, conversational, mental status normal, [...] extremity: LE assessment: normal temperature, no edema Neuro/CONSOLE ASSEMBLER: normal speech Psychiatry: normal affect Results Findings/Data: Laboratory Tests 11/10 11/10 11/11 11/11 1712 1934 0746 1040 Chemistry POC Glucose (70 - 110 MG/DL) 242 H 314 H 172 H 157 H Results: no new labs, vital signs reviewed, vital signs stable, rhythm personally rev'd, current med profile rev'd Telemetry Interpretation: nsr Diagnosis, Assessment Plan Code status: full code Plan discussed with: patient, nurse Free Text DxA P Notes Free Text DxA P Notes: 66 y/o F w/ PMHx: End-stage renal disease on dialysis, hypertension, diabetic. Pm Head Cook is consulted for elevated troponin. -Elevated troponin, mild. Likely due to end-stage renal disease High sensitive troponin 81. LDL 54.6 Nuclear stress test normal. Echocardiogram showed EF 50-55% - Hypertension. BP suboptimal - gave meds late this am d/t stress test. Cont valsartan 160 mg p.o. twice daily, Norvasc 5 mg p.o. daily p.o. and carvedilol 25 mg p.o. daily and Imdur to 120 mg p.o. daily - End-stage renal disease. On dialysis. Per Nephro. - COVID-19. Per Pulm On Decadron Ok d/c home from cardiac standpoint. at 1425 at 1658 RPT #:[id number] END OF REPORT [facility] 2021-11-11 10:19:00 [facility] ([facility]) Pulmonology Progress Note REPORT#:[id number] REPORT STATUS: Signed DATE:11/11/21 TIME: 1019 PATIENT: VALENTINE MCNALLY UNIT #: [id number] ROOM/BED: [place] [address] : 53 AGE: 66 SEX: F ATTEND: Ivan Freitas MD ADM AUTHOR: Jay Jay Vora MD * ALL edits or amendments must be made on the electronic/computer document * Subjective Chief complaint: No acute events overnight Reports feeling better She is vaccinated with the Tobi Tobi vaccine Review of Systems ROS Constitutional: Denies: chills, fatigue. Respiratory: Denies: PAN (dyspnea on exertion), hemoptysis, pneumonia, productive cough ( sputum), SOB, wheezing. Cardiovascular: [...] Isosorbide Mononitrate (Imdur 30 mg) 120 MG DAILY PO Regadenoson (LEXISCAN SYRINGE) 0 .STK-MED ONE IV (DC) Famotidine (PEPCID) 20 MG Q24H PO Valsartan (DIOVAN 160MG TAB) 160 MG BID PO Amlodipine Besylate (NORVASC) 10 MG DAILY PO Famotidine (PEPCID) 20 MG Q24H IV (DC) Simvastatin (SIMVASTATIN) 10 MG BEDTIME PO Calcium Acetate (CALCIUM ACETATE) 1,334 MG C MEALS PO Hydralazine HCl (APRESOLINE) 10 MG Q4H PRN PRN PO Aspirin (ASPIRIN) 81 MG DAILY PO Furosemide (LASIX) 40 MG DAILY PO Isosorbide Mononitrate (Imdur 30 mg) 60 MG DAILY PO (DC) Carvedilol (COREG) 25 MG BID MEALS PO Insulin Human Lispro (HUMALOG) 0 AC HS SUBQ Acetaminophen (TYLENOL) 650 MG Q4H PRN PRN PO Dexamethasone (DECADRON) 6 MG DAILY PO Dextrose/Water (DEXTROSE 50% W SYRINGE) 25 ML ASDIR PRN IV (CKD) Dextrose/Water (DEXTROSE 50% W SYRINGE) 50 ML ASDIR PRN IV (CKD) Glucagon (GLUCAGON) 1 MG ASDIR PRN IM Heparin Sodium (HEPARIN 5000 UNITS/ML) 5,000 UNIT Q8H SUBQ Ondansetron HCl (ZOFRAN) 4 MG Q4H PRN PRN IV Albumin Human (ALBUMINAR-25%) 12.5 GM ASDIR PRN IV Lidocaine HCl (LIDOCAINE HCL/PF) 0.5 ML ASDIR PRN I-DERMAL (CKD) Mannitol (MANNITOL 25% 12.5GM/50ML) 12.5 GM ASDIR PRN IV Sodium Chloride (SODIUM CHLORIDE 0.9%) 2,000 ML ASDIR PRN IV Sodium Chloride (SODIUM CHLORIDE) 10 ML ASDIR PRN IV Sodium Chloride (SODIUM CHLORIDE 0.9%) 250 ML ASDIR PRN IV Physical Exam Head/eyes: atraumatic, normocephalic, PERRL Neck: full range of motion, non-tender Cardiovascular: normal heart sounds, normal S1/S2, regular rate rhythm, no murmur, no rub, no gallop Respiratory/chest: on oxygen, aerating well, clear to auscultation, symmetric expansion, no distress, no tenderness Abdomen: soft, non-tender, no CVA tenderness, no distention Extremities: no cyanosis, no edema Musculoskeletal: no muscle spasm Neuro/CONSOLE ASSEMBLER: alert Diagnosis, Assessment Plan Free Text A P: Impressions: Acute hypoxemic respiratory failur COVID 19 infecction ESRD on HD DM CAD Recommendations: Patient is on room air Much improved clinically decadron for 10 days Finished course of remdesivir ESRD on HD per renal DVT ppx Full Code Discharge planning Quality: Gen Med Crit Care VTE Prophylaxis VTE prophylaxis initiated: yes at 1021 RPT #:[id number] END OF REPORT [facility] 2021-11-11 08:23:00 [facility] Nephrology Progress Note REPORT#:[id number] REPORT STATUS: Signed DATE:11/11/21 TIME: 822 PATIENT: VALENTINE MCNALLY UNIT #: [id number] ROOM/BED: [place] [phone] : 53 AGE: 66 SEX: F ATTEND: Ivan Freitas MD ADM AUTHOR: Marie Salas MD * ALL edits or amendments must be made on the electronic/computer document * Subjective Comments: Stress test today Objective General VS/I O: Vital Signs: Date Time Temp Pulse Resp B/P B/P Pulse O2 O2 Flow FiO2 Mean Ox Delivery Rate 11/11 0749 [...] Isosorbide Mononitrate (Imdur 30 mg) 120 MG DAILY PO Famotidine (PEPCID) 20 MG Q24H PO Valsartan (DIOVAN 160MG TAB) 160 MG BID PO Lisinopril (ZESTRIL) 10 MG DAILY PO (DC) Amlodipine Besylate (NORVASC) 10 MG DAILY PO Famotidine (PEPCID) 20 MG Q24H IV (DC) Simvastatin (SIMVASTATIN) 10 MG BEDTIME PO Calcium Acetate (CALCIUM ACETATE) 1,334 MG C MEALS PO Hydralazine HCl (APRESOLINE) 10 MG Q4H PRN PRN PO Aspirin (ASPIRIN) 81 MG DAILY PO Furosemide (LASIX) 40 MG DAILY PO Isosorbide Mononitrate (Imdur 30 mg) 60 MG DAILY PO (DC) Carvedilol (COREG) 25 MG BID MEALS PO Insulin Human Lispro (HUMALOG) 0 AC HS SUBQ Acetaminophen (TYLENOL) 650 MG Q4H PRN PRN PO Dexamethasone (DECADRON) 6 MG DAILY PO Dextrose/Water (DEXTROSE 50% W SYRINGE) 25 ML ASDIR PRN IV (CKD) Dextrose/Water (DEXTROSE 50% W SYRINGE) 50 ML ASDIR PRN IV (CKD) Glucagon (GLUCAGON) 1 MG ASDIR PRN IM Heparin Sodium (HEPARIN 5000 UNITS/ML) 5,000 UNIT Q8H SUBQ Ondansetron HCl (ZOFRAN) 4 MG Q4H PRN PRN IV Albumin Human (ALBUMINAR-25%) 12.5 GM ASDIR PRN IV Lidocaine HCl (LIDOCAINE HCL/PF) 0.5 ML ASDIR PRN I-DERMAL (CKD) Mannitol (MANNITOL 25% 12.5GM/50ML) 12.5 GM ASDIR PRN IV Sodium Chloride (SODIUM CHLORIDE 0.9%) 2,000 ML ASDIR PRN IV Sodium Chloride (SODIUM CHLORIDE) 10 ML ASDIR PRN IV Sodium Chloride (SODIUM CHLORIDE 0.9%) 250 ML ASDIR PRN IV Physical Exam General appearance: alert, awake Head/eyes: atraumatic, normocephalic, PERRLA ENT: moist mucous membranes, normal nose Neck: no JVD, no lymphadenopathy Cardiovascular: normal heart sounds, regular rate and rhythm, no rub Respiratory: decreased breath sounds Abdomen: non-tender, normal bowel sounds, soft, no rebound Genitourinary: no bladder distention, no flank pain, no urinary catheter Extremities: no edema, no gangrene Neuro/CONSOLE ASSEMBLER: alert, oriented X 3, CN II-XII intact, normal speech Results Findings/Data: Laboratory Tests 11/11 [...] Chest pain cardiology on case, stress test today 6. Hypertension remains elevated, likely secondary to steroid. Started on amlodipine and ARB. Also on Coreg. Meds being adjusted per cardiology 7. DM2 per primary team at 1105 RPT #:[id number] END OF REPORT [facility] 2021-11-10 13:47:00 [facility] ([facility]) Pulmonology Progress Note REPORT#:[id number] REPORT STATUS: Signed DATE:11/10/21 TIME: 1347 PATIENT: VALENTINE MCNALLY UNIT #: [id number] ROOM/BED: [place] [address] : 53 AGE: 66 SEX: F ATTEND: Ivan Freitas MD ADM AUTHOR: Jay Jay Vora MD * ALL edits or amendments must be made on the electronic/computer document * Subjective Chief complaint: No acute events overnight Reports feeling better She is vaccinated with the Tobi Tobi vaccine Review of Systems ROS Constitutional: Denies: chills, fatigue. Respiratory: Denies: PAN (dyspnea on exertion), hemoptysis, pneumonia, productive cough ( sputum), SOB, wheezing. Cardiovascular: [...] Isosorbide Mononitrate (Imdur 30 mg) 120 MG DAILY PO (UNV) Famotidine (PEPCID) 20 MG Q24H PO Valsartan (DIOVAN 160MG TAB) 160 MG BID PO Lisinopril (ZESTRIL) 10 MG DAILY PO (DC) Sodium Chloride (SODIUM CHLORIDE 0.9%) 50 ML Q24H IV (DC) Remdesivir (REMDESIVIR 100MG LYOPHYLIZED) 100 MG Q24H IV (DC) Sodium Chloride (SODIUM CHLORIDE 0.9% 100 ML) 100 ML Amlodipine Besylate (NORVASC) 10 MG DAILY PO Famotidine (PEPCID) 20 MG Q24H IV (DC) Simvastatin (SIMVASTATIN) 10 MG BEDTIME PO Calcium Acetate (CALCIUM ACETATE) 1,334 MG C MEALS PO Hydralazine HCl (APRESOLINE) 10 MG Q4H PRN PRN PO Aspirin (ASPIRIN) 81 MG DAILY PO Furosemide (LASIX) 40 MG DAILY PO Isosorbide Mononitrate (Imdur 30 mg) 60 MG DAILY PO (DCr) Carvedilol (COREG) 25 MG BID MEALS PO Insulin Human Lispro (HUMALOG) 0 AC HS SUBQ Acetaminophen (TYLENOL) 650 MG Q4H PRN PRN PO Dexamethasone (DECADRON) 6 MG DAILY PO Dextrose/Water (DEXTROSE 50% W SYRINGE) 25 ML ASDIR PRN IV (CKD) Dextrose/Water (DEXTROSE 50% W SYRINGE) 50 ML ASDIR PRN IV (CKD) Glucagon (GLUCAGON) 1 MG ASDIR PRN IM Heparin Sodium (HEPARIN 5000 UNITS/ML) 5,000 UNIT Q8H SUBQ Ondansetron HCl (ZOFRAN) 4 MG Q4H PRN PRN IV Albumin Human (ALBUMINAR-25%) 12.5 GM ASDIR PRN IV Lidocaine HCl (LIDOCAINE HCL/PF) 0.5 ML ASDIR PRN I-DERMAL (CKD) Mannitol (MANNITOL 25% 12.5GM/50ML) 12.5 GM ASDIR PRN IV Sodium Chloride (SODIUM CHLORIDE 0.9%) 2,000 ML ASDIR PRN IV Sodium Chloride (SODIUM CHLORIDE) 10 ML ASDIR PRN IV Sodium Chloride (SODIUM CHLORIDE 0.9%) 250 ML ASDIR PRN IV Physical Exam Head/eyes: atraumatic, normocephalic, PERRL Neck: full range of motion, non-tender Cardiovascular: normal heart sounds, normal S1/S2, regular rate rhythm, no murmur, no rub, no gallop Respiratory/chest: on oxygen, aerating well, clear to auscultation, symmetric expansion, no distress, no tenderness Abdomen: soft, non-tender, no CVA tenderness, no distention Extremities: no cyanosis, no edema Musculoskeletal: no muscle spasm Neuro/CONSOLE ASSEMBLER: alert Diagnosis, Assessment Plan Free Text A P: Impressions: Acute hypoxemic respiratory failur COVID 19 infecction ESRD on HD DM CAD Recommendations: Patient is on room air Much improved clinically decadron for 10 days Finished course of remdesivir ESRD on HD per renal DVT ppx Full Code Okay to discharge home from the pulmonary standpoint Quality: Gen Med Crit Care VTE Prophylaxis VTE prophylaxis initiated: yes at 1348 RPT #:[id number] END OF REPORT [facility] 2021-11-10 13:38:00 [facility] ([facility]) Infectious Dis. Progress Note REPORT#:[id number] REPORT STATUS: Signed DATE:11/10/21 TIME: 1338 PATIENT: VALENTINE MCNALLY UNIT #: [id number] ROOM/BED: [place] [address] : 53 AGE: 66 SEX: F ATTEND: Ivan Freitas MD ADM AUTHOR: Odell Hebert MD * ALL edits or amendments must be made on the electronic/computer document * Subjective Chief complaint: Shortness of breath Patient reports: Yes: feeling better. No: fever, headache, nausea. Portions of this section were scribed by Guillermina Luevano on 11/10/21 at 1338 Objective General VS/I [...] Ox FiO2 11/09-11/10 36.4-36.7 67-74 17-18 161-181/62-8 101.1-109.2 93-99 93-96 1 24 hour I O ending at 0700: 11/10 0700 11/09 1900 Intake Total 200 Output Total Balance 200 Intake, Oral 200 PATIENT WEIGHT: Weight (lb): Weight (oz): Weight (kg): 101.500 Physical Exam Head/Eyes: atraumatic, clear cornea, EOMI, normal conjunctiva/sclera, normal eyelids/periorb, normocephalic, PERRL ENT: normal dentition, normal nose, normal pharynx, normal sinus Neck: full range of motion, non-tender, normal thyroid, supple/no meningismus, no bruit/NL carotids, no JVD, no masses or swelling, no lymphadenopathy Cardiovascular: regular rate rhythm Respiratory: clear to auscultation, no distress Abdomen: non-tender, soft, no distention, no guarding, no mass/organomegaly, no rebound Extremities: moves all, normal capillary refill, normal sensory, no edema Results Findings/Data: Laboratory Tests 11/10 11/10 11/09 11/09 1140 0753 1918 1715 Chemistry POC Glucose (70 - 110 MG/DL) 213 H 178 H 281 H 272 H Active Meds + DC'd Last 24 Hrs Isosorbide Mononitrate (Imdur 30 mg) 120 MG DAILY PO (UNV) Famotidine (PEPCID) 20 MG Q24H PO Valsartan (DIOVAN 160MG TAB) 160 MG BID PO Lisinopril (ZESTRIL) 10 MG DAILY PO (DC) Sodium Chloride (SODIUM CHLORIDE 0.9%) 50 ML Q24H IV (DC) Remdesivir (REMDESIVIR 100MG LYOPHYLIZED) 100 MG Q24H IV (DC) Sodium Chloride (SODIUM CHLORIDE 0.9% 100 ML) 100 ML Amlodipine Besylate (NORVASC) 10 MG DAILY PO Famotidine (PEPCID) 20 MG Q24H IV (DC) Simvastatin (SIMVASTATIN) 10 MG BEDTIME PO Calcium Acetate (CALCIUM ACETATE) 1,334 MG C MEALS PO Hydralazine HCl (APRESOLINE) 10 MG Q4H PRN PRN PO Aspirin (ASPIRIN) 81 MG DAILY PO Furosemide (LASIX) 40 MG DAILY PO Isosorbide Mononitrate (Imdur 30 mg) 60 MG DAILY PO (DCr) Carvedilol (COREG) 25 MG BID MEALS PO Insulin Human Lispro (HUMALOG) 0 AC HS SUBQ Acetaminophen (TYLENOL) 650 MG Q4H PRN PRN PO Dexamethasone (DECADRON) 6 MG DAILY PO Dextrose/Water (DEXTROSE 50% W SYRINGE) 25 ML ASDIR PRN IV (CKD) Dextrose/Water (DEXTROSE 50% W SYRINGE) 50 ML ASDIR PRN IV (CKD) Glucagon (GLUCAGON) 1 MG ASDIR PRN IM Heparin Sodium (HEPARIN 5000 UNITS/ML) 5,000 UNIT Q8H SUBQ Ondansetron HCl (ZOFRAN) 4 MG Q4H PRN PRN IV Albumin Human (ALBUMINAR-25%) 12.5 GM ASDIR PRN IV Lidocaine HCl (LIDOCAINE HCL/PF) 0.5 ML ASDIR PRN I-DERMAL (CKD) Mannitol (MANNITOL 25% 12.5GM/50ML) 12.5 GM ASDIR PRN IV Sodium Chloride (SODIUM CHLORIDE 0.9%) 2,000 ML ASDIR PRN IV Sodium Chloride (SODIUM CHLORIDE) 10 ML ASDIR PRN IV Sodium Chloride (SODIUM CHLORIDE 0.9%) 250 ML ASDIR PRN IV Active Meds + DC'd Last 24 Hrs Isosorbide Mononitrate (Imdur 30 mg) 120 MG DAILY PO (UNV) Famotidine (PEPCID) 20 MG Q24H PO Valsartan (DIOVAN 160MG TAB) 160 MG BID PO Lisinopril (ZESTRIL) 10 MG DAILY PO (DC) Sodium Chloride (SODIUM CHLORIDE 0.9%) 50 ML Q24H IV (DC) Remdesivir (REMDESIVIR 100MG LYOPHYLIZED) 100 MG Q24H IV (DC) Sodium Chloride (SODIUM CHLORIDE 0.9% 100 ML) 100 ML Amlodipine Besylate (NORVASC) 10 MG DAILY PO Famotidine (PEPCID) 20 MG Q24H IV (DC) Simvastatin (SIMVASTATIN) 10 MG BEDTIME PO Calcium Acetate (CALCIUM ACETATE) 1,334 MG C MEALS PO Hydralazine HCl (APRESOLINE) 10 MG Q4H PRN PRN PO Aspirin (ASPIRIN) 81 MG DAILY PO Furosemide (LASIX) 40 MG DAILY PO Isosorbide Mononitrate (Imdur 30 mg) 60 MG DAILY PO (DCr) Carvedilol (COREG) 25 MG BID MEALS PO Insulin Human Lispro (HUMALOG) 0 AC HS SUBQ Acetaminophen (TYLENOL) 650 MG Q4H PRN PRN PO Dexamethasone (DECADRON) 6 MG DAILY PO Dextrose/Water (DEXTROSE 50% W SYRINGE) 25 ML ASDIR PRN IV (CKD) Dextrose/Water (DEXTROSE 50% W SYRINGE) 50 ML ASDIR PRN IV (CKD) Glucagon (GLUCAGON) 1 MG ASDIR PRN IM Heparin Sodium (HEPARIN 5000 UNITS/ML) 5,000 UNIT Q8H SUBQ Ondansetron HCl (ZOFRAN) 4 MG Q4H PRN PRN IV Albumin Human (ALBUMINAR-25%) 12.5 GM ASDIR PRN IV Lidocaine HCl (LIDOCAINE HCL/PF) 0.5 ML ASDIR PRN I-DERMAL (CKD) Mannitol (MANNITOL 25% 12.5GM/50ML) 12.5 GM ASDIR PRN IV Sodium Chloride (SODIUM CHLORIDE 0.9%) 2,000 ML ASDIR PRN IV Sodium Chloride (SODIUM CHLORIDE) 10 ML ASDIR PRN IV Sodium Chloride (SODIUM CHLORIDE 0.9%) 250 ML ASDIR PRN IV Portions of this section were scribed by Guillermina Luevano on 11/10/21 at 1338 Diagnosis, Assessment Plan Free Text A P: 1. Severe Covid with pneumonia and hypoxemia * Patient received a single dose of J J vaccine many months ago * s/p remdesivir 5 day s * Dexamethasone per recovery trial for 10 days day #6 * DVT prophylaxis * C-reactive protein * Oxygen supplementation to keep her oxygen saturation more than 94% * room air 2. End-stage renal disease on hemodialysis 3. Diabetes mellitus type 2 4. Hypertension Portions of this section were scribed by Guillermina Luevano on 11/10/21 at 1338 at 0622 RPT #:[id number] END OF REPORT [facility] 2021-11-10 12:43:00 [facility] ([facility]) Hospitalist Progress Note REPORT#:[id number] REPORT STATUS: Signed DATE:11/10/21 TIME: 1243 PATIENT: VALENTINE MCNALLY UNIT #: [id number] ROOM/BED: [place] [address] : 53 AGE: 66 SEX: F ATTEND: Ivan Freitas MD ADM AUTHOR: Heber Rainey DO * ALL edits or amendments must be made on the electronic/computer document * Subjective Comments: Patient seen and examined, denies any complaints, discussed case with cardiology , plan for stress test today, spoke to the devulcanizer charger as the patient's RN does not have a working phone regarding n.p.o. however patient still subsequently discovered to be eating breakfast Objective General VS/I O: Vital Signs: Date Time Temp Pulse Resp B/P B/P Pulse O2 O2 Flow FiO2 Mean Ox Delivery Rate 11/10 1143 [...] Isosorbide Mononitrate (Imdur 30 mg) 120 MG DAILY PO (UNV) Famotidine (PEPCID) 20 MG Q24H PO Valsartan (DIOVAN 160MG TAB) 160 MG BID PO Lisinopril (ZESTRIL) 10 MG DAILY PO (DC) Sodium Chloride (SODIUM CHLORIDE 0.9%) 50 ML Q24H IV (DC) Remdesivir (REMDESIVIR 100MG LYOPHYLIZED) 100 MG Q24H IV (DC) Sodium Chloride (SODIUM CHLORIDE 0.9% 100 ML) 100 ML Amlodipine Besylate (NORVASC) 10 MG DAILY PO Famotidine (PEPCID) 20 MG Q24H IV (DC) Simvastatin (SIMVASTATIN) 10 MG BEDTIME PO Calcium Acetate (CALCIUM ACETATE) 1,334 MG C MEALS PO Hydralazine HCl (APRESOLINE) 10 MG Q4H PRN PRN PO Aspirin (ASPIRIN) 81 MG DAILY PO Furosemide (LASIX) 40 MG DAILY PO Isosorbide Mononitrate (Imdur 30 mg) 60 MG DAILY PO (DCr) Carvedilol (COREG) 25 MG BID MEALS PO Insulin Human Lispro (HUMALOG) 0 AC HS SUBQ Acetaminophen (TYLENOL) 650 MG Q4H PRN PRN PO Dexamethasone (DECADRON) 6 MG DAILY PO Dextrose/Water (DEXTROSE 50% W SYRINGE) 25 ML ASDIR PRN IV (CKD) Dextrose/Water (DEXTROSE 50% W SYRINGE) 50 ML ASDIR PRN IV (CKD) Glucagon (GLUCAGON) 1 MG ASDIR PRN IM Heparin Sodium (HEPARIN 5000 UNITS/ML) 5,000 UNIT Q8H SUBQ Ondansetron HCl (ZOFRAN) 4 MG Q4H PRN PRN IV Albumin Human (ALBUMINAR-25%) 12.5 GM ASDIR PRN IV Lidocaine HCl (LIDOCAINE HCL/PF) 0.5 ML ASDIR PRN I-DERMAL (CKD) Mannitol (MANNITOL 25% 12.5GM/50ML) 12.5 GM ASDIR PRN IV Sodium Chloride (SODIUM CHLORIDE 0.9%) 2,000 ML ASDIR PRN IV Sodium Chloride (SODIUM CHLORIDE) 10 ML ASDIR PRN IV Sodium Chloride (SODIUM CHLORIDE 0.9%) 250 ML ASDIR PRN IV Physical Exam General appearance: alert, awake, oriented Head/Eyes: atraumatic, normocephalic ENT: normal ear left, normal ear right, normal nose Neck: full range of motion, no JVD Cardiovascular: normal heart sounds, regular rate rhythm Respiratory: clear to auscultation, symmetric expansion, no distress Abdomen: non-tender, normal bowel sounds, soft, no distention Extremities: no clubbing, no cyanosis, no edema Neuro/CONSOLE ASSEMBLER: non focal, alert and oriented to herself, doesn't know the name of the hospital [...] sister states pt IS VACCINATED with j/j vaccine x2. Hyperkalemia -resolved * HD, nephrology following Hypoxia -currently on room air * abnormal CXR * pulmonary following, history of tobacco abuse Elevated troponin I level * Plan for stress test today, being followed and monitored by cardiology HTN (hypertension) * BP uncontrolled * On valsartan, Coreg, as well as amlodipine, continue to monitor Diabetes -blood glucose controlled * Continue SSI. Metabolic encephalopathy * CT head/PT/OT eval. probably multifactorial from all above. Pt sister was concerned about a UTI. (pt makes urine). Follow-up UA and culture. Nausea and vomiting * CT of the abdomen pelvis reviewed, symptoms improved, advance to cardiac diet * Gastroenterology following, supportive care with antiemetics as needed End-stage renal disease * HD TTS per nephrology DVT prophylaxis: Heparin subcutaneous Disposition: Stress test today, plan for HD tomorrow, continue to monitor blood pressure, discharge home soon Quality: Gen Med Crit Care VTE Prophylaxis VTE prophylaxis initiated: yes Current Medications Current medication review: I attest that the foregoing medication list in the medical record is true, accurate, and complete to the best of my knowledge. Advanced Care Plan 65 or Older Discussed with: surrogate fela. maker Discussion included: living will at 1246 RPT #:[id number] END OF REPORT [facility] 2021-11-10 11:39:00 [facility] ([facility]) Pharmacy Prog.Note IV to PO REPORT#:[id number] REPORT STATUS: Signed DATE:11/10/21 TIME: 1139 PATIENT: VALENTINE MCNALLY UNIT #: [id number] ROOM/BED: [place] [address] : 53 AGE: 66 SEX: F ATTEND: Ivan Freitas MD ADM AUTHOR: Isrrael Freitas aleksandr * ALL edits or amendments must be made on the electronic/computer document * IV to PO Adjustment IV to PO Adjustment Medication: From: Famotidine 20 mg IV q24h To: Famotidine 20 mg PO daily Diet: cardiac Inclusion criteria: Tolerating: PO/Tube medication, clear liq/advancing diet, 24 hrs of enteral feeding Vital signs: Vital Signs Date Temp Pulse Resp B/P B/P Mean Pulse Ox FiO2 11/07-11/10 97.9-98.6 60-78 16-20 139-188/62-82 90.2-113.5 91-100 93-96 Labs: Laboratory Test:WBC-72 Hrs 11/09 11/08 0420 0430 Hematology WBC (4.5 - 11.0 x10 3/uL) 4.8 5.6 Additional comments: A/P: 11/10: Pt is on a cardiac diet and is able to tolerate other PO medications. She is also reported to be improving w/ regards to n/v; ondansetron has not been administered since 11/05. Pt is currently on famotidine 20 mg IV q24h for GERD. Given that pt is a good candidate for IV to PO conversion, pharmacy will modify the regimen to famotidine 20 mg PO daily per protocol. at 1140 RPT #:[id number] END OF REPORT [facility] 2021-11-10 10:29:00 [facility] ([facility]) Nephrology Progress Note REPORT#:[id number] REPORT STATUS: Signed DATE:11/10/21 TIME: 1029 PATIENT: VALENTINE MCNALLY UNIT #: [id number] ROOM/BED: [place] [address] : 53 AGE: 66 SEX: F ATTEND: Ivan Freitas MD ADM AUTHOR: Marie Salas MD * ALL edits or amendments must be made on the electronic/computer document * Subjective Comments: Wants to go home, on room air Objective General VS/I O: Vital Signs: Date Time Temp Pulse Resp B/P B/P Pulse O2 O2 Flow FiO2 Mean Ox Delivery Rate 11/10 0757 [...] Sodium Chloride (SODIUM CHLORIDE 0.9%) 50 ML Q24H IV (DC) Remdesivir (REMDESIVIR 100MG LYOPHYLIZED) 100 MG Q24H IV (DC) Sodium Chloride (SODIUM CHLORIDE 0.9% 100 ML) 100 ML Amlodipine Besylate (NORVASC) 10 MG DAILY PO Famotidine (PEPCID) 20 MG Q24H IV Simvastatin (SIMVASTATIN) 10 MG BEDTIME PO Calcium Acetate (CALCIUM ACETATE) 1,334 MG C MEALS PO Hydralazine HCl (APRESOLINE) 10 MG Q4H PRN PRN PO Aspirin (ASPIRIN) 81 MG DAILY PO Furosemide (LASIX) 40 MG DAILY PO Isosorbide Mononitrate (Imdur 30 mg) 60 MG DAILY PO Carvedilol (COREG) 25 MG BID MEALS PO Insulin Human Lispro (HUMALOG) 0 AC HS SUBQ Acetaminophen (TYLENOL) 650 MG Q4H PRN PRN PO Dexamethasone (DECADRON) 6 MG DAILY PO Dextrose/Water (DEXTROSE 50% W SYRINGE) 25 ML ASDIR PRN IV (CKD) Dextrose/Water (DEXTROSE 50% W SYRINGE) 50 ML ASDIR PRN IV (CKD) Glucagon (GLUCAGON) 1 MG ASDIR PRN IM Heparin Sodium (HEPARIN 5000 UNITS/ML) 5,000 UNIT Q8H SUBQ Ondansetron HCl (ZOFRAN) 4 MG Q4H PRN PRN IV Albumin Human (ALBUMINAR-25%) 12.5 GM ASDIR PRN IV Lidocaine HCl (LIDOCAINE HCL/PF) 0.5 ML ASDIR PRN I-DERMAL (CKD) Mannitol (MANNITOL 25% 12.5GM/50ML) 12.5 GM ASDIR PRN IV Sodium Chloride (SODIUM CHLORIDE 0.9%) 2,000 ML ASDIR PRN IV Sodium Chloride (SODIUM CHLORIDE) 10 ML ASDIR PRN IV Sodium Chloride (SODIUM CHLORIDE 0.9%) 250 ML ASDIR PRN IV Physical Exam General appearance: alert, awake Head/eyes: atraumatic, normocephalic, PERRLA ENT: moist mucous membranes, normal nose Neck: no JVD, no lymphadenopathy Cardiovascular: normal heart sounds, regular rate and rhythm, no rub Respiratory: decreased breath sounds Abdomen: non-tender, normal bowel sounds, soft, no rebound Genitourinary: no bladder distention, no flank pain, no urinary catheter Extremities: no edema, no gangrene Neuro/CONSOLE ASSEMBLER: alert, oriented X 3, CN II-XII intact, normal speech Results Findings/Data: Laboratory Tests 11/10 [...] and steroid 6. Hypertension remains elevated, likely secondary to steroid. Started on amlodipine and ARB. Meds being adjusted per cardiology 7. DM2 per primary team 8. Epigastric pain cardiology on case, stress test canceled today as patient ate breakfast. Stress test scheduled for tomorrow. at 1548 RPT #:[id number] END OF REPORT [facility] 2021-11-10 08:33:00 [facility] ([facility]) Cardiology Progress Note REPORT#:[id number] REPORT STATUS: Signed DATE:11/10/21 TIME: 08 PATIENT: VALENTINE MCNALLY UNIT #: [id number] ROOM/BED: [place] [address] : 53 AGE: 66 SEX: F ATTEND: Ivan Freitas MD ADM AUTHOR: Karyn Oneill NP * ALL edits or amendments must be made on the electronic/computer document * See Addendum Subjective Chief complaint: [...] O2 Flow FiO2 Mean Ox Delivery Rate 11/10 1143 [...] Sodium Chloride (SODIUM CHLORIDE 0.9%) 50 ML Q24H IV (DC) Remdesivir (REMDESIVIR 100MG LYOPHYLIZED) 100 MG Q24H IV (DC) Sodium Chloride (SODIUM CHLORIDE 0.9% 100 ML) 100 ML Amlodipine Besylate (NORVASC) 10 MG DAILY PO Famotidine (PEPCID) 20 MG Q24H IV (DC) Simvastatin (SIMVASTATIN) 10 MG BEDTIME PO Calcium Acetate (CALCIUM ACETATE) 1,334 MG C MEALS PO Hydralazine HCl (APRESOLINE) 10 MG Q4H PRN PRN PO Aspirin (ASPIRIN) 81 MG DAILY PO Furosemide (LASIX) 40 MG DAILY PO Isosorbide Mononitrate (Imdur 30 mg) 60 MG DAILY PO Carvedilol (COREG) 25 MG BID MEALS PO Insulin Human Lispro (HUMALOG) 0 AC HS SUBQ Acetaminophen (TYLENOL) 650 MG Q4H PRN PRN PO Dexamethasone (DECADRON) 6 MG DAILY PO Dextrose/Water (DEXTROSE 50% W SYRINGE) 25 ML ASDIR PRN IV (CKD) Dextrose/Water (DEXTROSE 50% W SYRINGE) 50 ML ASDIR PRN IV (CKD) Glucagon (GLUCAGON) 1 MG ASDIR PRN IM Heparin Sodium (HEPARIN 5000 UNITS/ML) 5,000 UNIT Q8H SUBQ Ondansetron HCl (ZOFRAN) 4 MG Q4H PRN PRN IV Albumin Human (ALBUMINAR-25%) 12.5 GM ASDIR PRN IV Lidocaine HCl (LIDOCAINE HCL/PF) 0.5 ML ASDIR PRN I-DERMAL (CKD) Mannitol (MANNITOL 25% 12.5GM/50ML) 12.5 GM ASDIR PRN IV Sodium Chloride (SODIUM CHLORIDE 0.9%) 2,000 ML ASDIR PRN IV Sodium Chloride (SODIUM CHLORIDE) 10 ML ASDIR PRN IV Sodium Chloride (SODIUM CHLORIDE 0.9%) 250 ML ASDIR PRN IV Physical Exam General appearance: alert, awake, oriented, no acute distress, conversational, mental status normal, [...] extremity: LE assessment: normal temperature, no edema Neuro/CONSOLE ASSEMBLER: normal speech Psychiatry: normal affect Results Findings/Data: [...] 66 y/o F w/ PMHx: End-stage renal disease on dialysis, hypertension, diabetic. Pm Head Cook is consulted for elevated troponin. -Elevated troponin, mild. Likely due to end-stage renal disease High sensitive troponin 81. LDL 54.6 Will do nuclear stress test today Echocardiogram showed EF 50-55% - Hypertension. BP suboptimal DC lisinopril Start valsartan 160 mg p.o. twice daily Continue Norvasc 5 mg p.o. daily p.o. and carvedilol 25 mg p.o. daily. Increase Imdur to 120 mg p.o. daily - End-stage renal disease. On dialysis. Per Nephro. - COVID-19. Per Pulm On Decadron if Stress test normal-okay to DC patient home from cardiac standpoint. at 1236 at 1850 Addendum 1: 11/10/21 1410 by Karyn Oneill NP Stress test was not done today d/t pt had breakfast. I discussed w/ stress test dept and bedside RN - pt will be NPO after MN, nuclear stress test will be done early in am so pt can be discharge home if her stress test is normal. Updated plan of care w/ Dr. Rainey. at 1412 at 1850 RPT #:[id number] END OF REPORT [facility] 2021-11-09 18:42:00 [facility] ([facility]) Nephrology Progress Note REPORT#:[id number] REPORT STATUS: Signed DATE:11/09/21 TIME: 1841 PATIENT: VALENTINE MCNALLY UNIT #: [id number] ROOM/BED: [place] [address] : 53 AGE: 66 SEX: F ATTEND: Ivan Freitas MD ADM AUTHOR: Mason Barnes MD * ALL edits or amendments must be made on the electronic/computer document * Subjective Comments: Events noted. On room air. Eating well. Wants to go home. Objective General VS/I O: Vital Signs: Date Time Temp Pulse Resp B/P B/P Pulse O2 O2 Flow FiO2 Mean Ox Delivery Rate 11/09 1716 [...] Sodium Chloride (SODIUM CHLORIDE 0.9%) 50 ML Q24H IV Remdesivir (REMDESIVIR 100MG LYOPHYLIZED) 100 MG Q24H IV Sodium Chloride (SODIUM CHLORIDE 0.9% 100 ML) 100 ML Amlodipine Besylate (NORVASC) 10 MG DAILY PO Famotidine (PEPCID) 20 MG Q24H IV Simvastatin (SIMVASTATIN) 10 MG BEDTIME PO Calcium Acetate (CALCIUM ACETATE) 1,334 MG C MEALS PO Hydralazine HCl (APRESOLINE) 10 MG Q4H PRN PRN PO Aspirin (ASPIRIN) 81 MG DAILY PO Furosemide (LASIX) 40 MG DAILY PO Isosorbide Mononitrate (Imdur 30 mg) 60 MG DAILY PO Carvedilol (COREG) 25 MG BID MEALS PO Insulin Human Lispro (HUMALOG) 0 AC HS SUBQ Acetaminophen (TYLENOL) 650 MG Q4H PRN PRN PO Dexamethasone (DECADRON) 6 MG DAILY PO Dextrose/Water (DEXTROSE 50% W SYRINGE) 25 ML ASDIR PRN IV (CKD) Dextrose/Water (DEXTROSE 50% W SYRINGE) 50 ML ASDIR PRN IV (CKD) Glucagon (GLUCAGON) 1 MG ASDIR PRN IM Heparin Sodium (HEPARIN 5000 UNITS/ML) 5,000 UNIT Q8H SUBQ Ondansetron HCl (ZOFRAN) 4 MG Q4H PRN PRN IV Albumin Human (ALBUMINAR-25%) 12.5 GM ASDIR PRN IV Lidocaine HCl (LIDOCAINE HCL/PF) 0.5 ML ASDIR PRN I-DERMAL (CKD) Mannitol (MANNITOL 25% 12.5GM/50ML) 12.5 GM ASDIR PRN IV Sodium Chloride (SODIUM CHLORIDE 0.9%) 2,000 ML ASDIR PRN IV Sodium Chloride (SODIUM CHLORIDE) 10 ML ASDIR PRN IV Sodium Chloride (SODIUM CHLORIDE 0.9%) 250 ML ASDIR PRN IV Physical Exam General appearance: alert, awake Head/eyes: atraumatic, normocephalic, PERRLA ENT: moist mucous membranes, normal nose Neck: no JVD, no lymphadenopathy Cardiovascular: normal heart sounds, regular rate and rhythm, no rub Respiratory: decreased breath sounds Abdomen: non-tender, normal bowel sounds, soft, no rebound Genitourinary: no bladder distention, no flank pain, no urinary catheter Extremities: no edema, no gangrene Neuro/CONSOLE ASSEMBLER: alert, oriented X 3, CN II-XII intact, normal speech Results Findings/Data: Laboratory Tests 11/09 [...] (Auto) (14.0 - 32.0 %) 7.4 L Bergen % (Auto) (4.8 - 9.0 %) 5.5 Eos % (Auto) (0.3 - 3.7 %) 0.0 L Baso % (Auto) (0.0 - 2.0 %) 0.0 Neut # (Auto) (2.0 - 7.6 x10 3/uL) 4.13 Lymph # (Auto) (1.0 - 3.8 x10 3/uL) 0.35 L Bergen # (Auto) (0.1 - 0.8 x10 3/uL) 0.26 Eos # (Auto) (0.0 - 0.2 x10 3/uL) 0.00 Baso # (Auto) (0.0 - 0.2 x10 3/uL) 0.00 Abs Immat Gran (auto) (0.00 - 0.03 x10 3/uL) 0.02 Add Manual Diff NO Immature Gran % (0.0 - 2.0 %) 0.4 Nucleated RBC % (0 - 0 %) 0.0 Nucleated RBCs # (Man) (0.0 - 0.1 x10 3/uL) 0.00 Diagnosis, Assessment Plan Free Text A P: 1. ESRD continue with TTS schedule 2. Electrolytes within normal range today 3. Nausea vomiting symptoms improving. CT abdomen and pelvis noted. Eating diet 4. Anemia of CKD start ÁNGEL if hemoglobin remains less than 10 5. COVID-19 pneumonia ID consulted, started on remdesivir and steroid 6. Hypertension remains elevated, likely secondary to steroid. Started on amlodipine and lisinopril. 7. DM2 per primary team at 1844 RPT #:[id number] END OF REPORT [facility] 2021-11-09 11:04:00 [facility] Hospitalist Progress Note REPORT#:[id number] REPORT STATUS: Signed DATE:11/09/21 TIME: 1104 PATIENT: VALENTINE MCNALLY UNIT #: [id number] ROOM/BED: [place] [address] : 53 AGE: 66 SEX: F ATTEND: Ivan Freitas MD ADM AUTHOR: Arlen Gamble MD * ALL edits or amendments must be made on the electronic/computer document * Subjective Chief complaint: not on any oxygen. doing well. Objective General VS/I O: Vital Signs: Date Time Temp Pulse Resp B/P B/P Pulse O2 O2 Flow FiO2 Mean Ox Delivery Rate 11/09 0751 98.4 61 17 188/71 109.8 92 Room air 11/09 032 62 17 186/74 111.1 11/09 0320 98.4 [...] Sodium Chloride (SODIUM CHLORIDE 0.9%) 50 ML Q24H IV Remdesivir (REMDESIVIR 100MG LYOPHYLIZED) 100 MG Q24H IV Sodium Chloride (SODIUM CHLORIDE 0.9% 100 ML) 100 ML Amlodipine Besylate (NORVASC) 10 MG DAILY PO Famotidine (PEPCID) 20 MG Q24H IV Simvastatin (SIMVASTATIN) 10 MG BEDTIME PO Calcium Acetate (CALCIUM ACETATE) 1,334 MG C MEALS PO Hydralazine HCl (APRESOLINE) 10 MG Q4H PRN PRN PO Aspirin (ASPIRIN) 81 MG DAILY PO Furosemide (LASIX) 40 MG DAILY PO Isosorbide Mononitrate (Imdur 30 mg) 60 MG DAILY PO Carvedilol (COREG) 25 MG BID MEALS PO Insulin Human Lispro (HUMALOG) 0 AC HS SUBQ Acetaminophen (TYLENOL) 650 MG Q4H PRN PRN PO Dexamethasone (DECADRON) 6 MG DAILY PO Dextrose/Water (DEXTROSE 50% W SYRINGE) 25 ML ASDIR PRN IV (CKD) Dextrose/Water (DEXTROSE 50% W SYRINGE) 50 ML ASDIR PRN IV (CKD) Glucagon (GLUCAGON) 1 MG ASDIR PRN IM Heparin Sodium (HEPARIN 5000 UNITS/ML) 5,000 UNIT Q8H SUBQ Ondansetron HCl (ZOFRAN) 4 MG Q4H PRN PRN IV Albumin Human (ALBUMINAR-25%) 12.5 GM ASDIR PRN IV Lidocaine HCl (LIDOCAINE HCL/PF) 0.5 ML ASDIR PRN I-DERMAL (CKD) Mannitol (MANNITOL 25% 12.5GM/50ML) 12.5 GM ASDIR PRN IV Sodium Chloride (SODIUM CHLORIDE 0.9%) 2,000 ML ASDIR PRN IV Sodium Chloride (SODIUM CHLORIDE) 10 ML ASDIR PRN IV Sodium Chloride (SODIUM CHLORIDE 0.9%) 250 ML ASDIR PRN IV Physical Exam General appearance: no acute distress Head/Eyes: atraumatic, normocephalic ENT: normal ear left, normal ear right, normal nose Neck: full range of motion, no JVD Cardiovascular: normal heart sounds, regular rate rhythm Respiratory: clear to auscultation, symmetric expansion, no distress Abdomen: non-tender, normal bowel sounds, soft, no distention Extremities: no clubbing, no cyanosis, no edema Neuro/CONSOLE ASSEMBLER: non focal, alert and oriented to herself, doesn't know the name of the hospital [...] - 5.0 g/dL) 2.90 L Laboratory Tests 02/20 0420 Hematology WBC (4.5 - 11.0 x10 [...] (Auto) (14.0 - 32.0 %) 7.4 L Bergen % (Auto) (4.8 - 9.0 %) 5.5 Eos % (Auto) (0.3 - 3.7 %) 0.0 L Baso % (Auto) (0.0 - 2.0 %) 0.0 Neut # (Auto) (2.0 - 7.6 x10 3/uL) 4.13 Lymph # (Auto) (1.0 - 3.8 x10 3/uL) 0.35 L Bergen # (Auto) (0.1 - 0.8 x10 3/uL) 0.26 Eos # (Auto) (0.0 - 0.2 x10 3/uL) 0.00 Baso # (Auto) (0.0 - 0.2 x10 3/uL) 0.00 Abs Immat Gran (auto) (0.00 - 0.03 x10 3/uL) 0.02 Add Manual Diff NO Immature Gran % (0.0 - 2.0 %) 0.4 Nucleated RBC % (0 - 0 %) 0.0 Nucleated RBCs # (Man) (0.0 - 0.1 x10 3/uL) 0.00 Diagnosis, Assessment Plan Problem List/A P: 1. [...] sister states pt IS VACCINATED with j/j vaccine x2. Hyperkalemia -resolved * HD, nephrology following Hypoxia -currently on room air * abnormal CXR * pulmonary following, history of tobacco abuse Elevated troponin I level * echo pending; cards following HTN (hypertension) * BP uncontrolled added lisinopril 10mg po daily; monitor bp closely Diabetes -blood glucose controlled * Continue SSI. Metabolic encephalopathy * CT head/PT/OT eval. probably multifactorial from all above. Pt sister was concerned about a UTI. (pt makes urine). Follow-up UA and culture. Nausea and vomiting * CT of the abdomen pelvis reviewed, symptoms improved, advance to cardiac diet * Gastroenterology following, supportive care with antiemetics as needed End-stage renal disease * HD TTS per nephrology DVT prophylaxis: Heparin subcutaneous Labs stable possible d/c in am Quality: Gen Med Crit Care VTE Prophylaxis VTE prophylaxis initiated: yes Current Medications Current medication review: I attest that the foregoing medication list in the medical record is true, accurate, and complete to the best of my knowledge. Advanced Care Plan 65 or Older Discussed with: surrogate fela. maker Discussion included: living will at 1110 RPT #:[id number] END OF REPORT [facility] 2021-11-08 18:05:00 [facility] ([facility] Nephrology Progress Note REPORT#:[id number] REPORT STATUS: Signed DATE:11/08/21 TIME: 1805 PATIENT: VALENTINE MCNALLY UNIT #: [id number] ROOM/BED: [address] : 53 AGE: 66 SEX: F ATTEND: Ivan Freitas MD ADM AUTHOR: Mason Barnes MD * ALL edits or amendments must be made on the electronic/computer document * Subjective Comments: Events noted. Seen on dialysis. Tolerating procedure. Objective General VS/I O: Vital Signs: Date Time Temp Pulse Resp B/P B/P Pulse O2 O2 Flow FiO2 Mean Ox Delivery Rate 11/08 1647 [...] 164/70 100.8 95 Nasal 2 cannula 11/07 202 98.2 64 20 139/66 90.2 93 Room air 11/07 2000 Nasal 3 cannula 24 hour I O ending at 0700: 11/08 0700 11/07 1900 Intake Total 120 Output Total Balance 120 Intake, Oral 120 PATIENT WEIGHT: Weight (lb): Weight (oz): Weight (kg): 101.500 Medications Active Meds + DC'd Last 24 Hrs Sodium Chloride (SODIUM CHLORIDE 0.9%) 50 ML Q24H IV Remdesivir (REMDESIVIR 100MG LYOPHYLIZED) 100 MG Q24H IV Sodium Chloride (SODIUM CHLORIDE 0.9% 100 ML) 100 ML Amlodipine Besylate (NORVASC) 10 MG DAILY PO Famotidine (PEPCID) 20 MG Q24H IV Simvastatin (SIMVASTATIN) 10 MG BEDTIME PO Calcium Acetate (CALCIUM ACETATE) 1,334 MG C MEALS PO Hydralazine HCl (APRESOLINE) 10 MG Q4H PRN PRN PO Aspirin (ASPIRIN) 81 MG DAILY PO Furosemide (LASIX) 40 MG DAILY PO Isosorbide Mononitrate (Imdur 30 mg) 60 MG DAILY PO Carvedilol (COREG) 25 MG BID MEALS PO Insulin Human Lispro (HUMALOG) 0 AC HS SUBQ Acetaminophen (TYLENOL) 650 MG Q4H PRN PRN PO Dexamethasone (DECADRON) 6 MG DAILY PO Dextrose/Water (DEXTROSE 50% W SYRINGE) 25 ML ASDIR PRN IV (CKD) Dextrose/Water (DEXTROSE 50% W SYRINGE) 50 ML ASDIR PRN IV (CKD) Glucagon (GLUCAGON) 1 MG ASDIR PRN IM Heparin Sodium (HEPARIN 5000 UNITS/ML) 5,000 UNIT Q8H SUBQ Ondansetron HCl (ZOFRAN) 4 MG Q4H PRN PRN IV Albumin Human (ALBUMINAR-25%) 12.5 GM ASDIR PRN IV Lidocaine HCl (LIDOCAINE HCL/PF) 0.5 ML ASDIR PRN I-DERMAL (CKD) Mannitol (MANNITOL 25% 12.5GM/50ML) 12.5 GM ASDIR PRN IV Sodium Chloride (SODIUM CHLORIDE 0.9%) 2,000 ML ASDIR PRN IV Sodium Chloride (SODIUM CHLORIDE) 10 ML ASDIR PRN IV Sodium Chloride (SODIUM CHLORIDE 0.9%) 250 ML ASDIR PRN IV Physical Exam General appearance: alert, awake Head/eyes: atraumatic, normocephalic, PERRLA ENT: moist mucous membranes, normal nose Neck: no JVD, no lymphadenopathy Cardiovascular: normal heart sounds, regular rate and rhythm, no rub Respiratory: decreased breath sounds Abdomen: non-tender, normal bowel sounds, soft, no rebound Genitourinary: no bladder distention, no flank pain, no urinary catheter Extremities: no edema, no gangrene Neuro/CONSOLE ASSEMBLER: alert, oriented X 3, CN II-XII intact, normal speech Results Findings/Data: Laboratory Tests 11/08 11/08 11/08 11/08 11/07 1643 1200 0759 0323 2017 Chemistry Sodium (134 - 147 mEq/L) 137 [...] (Auto) (14.0 - 32.0 %) 7.0 L Bergen % (Auto) (4.8 - 9.0 %) 4.3 L Eos % (Auto) (0.3 - 3.7 %) 0.0 L Baso % (Auto) (0.0 - 2.0 %) 0.0 Neut # (Auto) (2.0 - 7.6 x10 3/uL) 4.92 Lymph # (Auto) (1.0 - 3.8 x10 3/uL) 0.39 L Bergen # (Auto) (0.1 - 0.8 x10 3/uL) 0.24 Eos # (Auto) (0.0 - 0.2 x10 3/uL) 0.00 Baso # (Auto) (0.0 - 0.2 x10 3/uL) 0.00 Abs Immat Gran (auto) (0.00 - 0.03 x10 3/uL) 0.02 Add Manual Diff NO Immature Gran % (0.0 - 2.0 %) 0.4 Nucleated RBC % (0 - 0 %) 0.0 Nucleated RBCs # (Man) (0.0 - 0.1 x10 3/uL) 0.00 Diagnosis, Assessment Plan Free Text A P: 1. ESRD continue with TTS schedule, seen on dialysis 2. Electrolytes within normal range today 3. Nausea vomiting symptoms improving. CT abdomen and pelvis noted 4. Anemia of CKD start ÁNGEL if hemoglobin remains less than 10 5. COVID-19 pneumonia ID consulted, started on remdesivir and steroid 6. Hypertension remains elevated, likely secondary to steroid. Started on amlodipine. Follow after dialysis 7. DM2 per primary team Hemodialysis for 3 hours on a 2K bath with ultrafiltration as tolerated at 1807 RPT #:[id number] END OF REPORT [facility] 2021-11-08 14:12:00 [facility] ([facility] Hospitalist Progress Note REPORT#:[id number] REPORT STATUS: Signed DATE:11/08/21 TIME: 1412 PATIENT: VALENTINE MCNALLY UNIT #: [id number] ROOM/BED: [place] [address] : 51 AGE: 66 SEX: F ATTEND: Ivan Freitas MD ADM AUTHOR: Arlen Gamble MD * ALL edits or amendments must be made on the electronic/computer document * Subjective Chief complaint: Patient currently on room air. She says that she does not need oxygen. She is getting hemodialysis at this time. No other acute complaints. Objective General VS/I O: Vital Signs: Date Time Temp Pulse Resp B/P B/P Pulse O2 O2 Flow FiO2 Mean Ox Delivery Rate 11/08 1313 98.1 61 20 162/82 95 Room air 11/08 1201 97.9 63 17 165/69 100.9 91 Room air 11/08 1155 93 Room air 11/08 0801 98.2 62 17 172/73 106.1 96 Nasal cannula 11/08 0800 Nasal 2 cannula 11/08 0428 98.4 60 16 164/70 100.8 95 Nasal 2 cannula 11/07 2021 98.2 64 20 139/66 90.2 93 Room [...] Sodium Chloride (SODIUM CHLORIDE 0.9%) 50 ML Q24H IV Remdesivir (REMDESIVIR 100MG LYOPHYLIZED) 100 MG Q24H IV Sodium Chloride (SODIUM CHLORIDE 0.9% 100 ML) 100 ML Amlodipine Besylate (NORVASC) 10 MG DAILY PO Famotidine (PEPCID) 20 MG Q24H IV Simvastatin (SIMVASTATIN) 10 MG BEDTIME PO Calcium Acetate (CALCIUM ACETATE) 1,334 MG C MEALS PO Hydralazine HCl (APRESOLINE) 10 MG Q4H PRN PRN PO Aspirin (ASPIRIN) 81 MG DAILY PO Furosemide (LASIX) 40 MG DAILY PO Isosorbide Mononitrate (Imdur 30 mg) 60 MG DAILY PO Carvedilol (COREG) 25 MG BID MEALS PO Insulin Human Lispro (HUMALOG) 0 AC HS SUBQ Acetaminophen (TYLENOL) 650 MG Q4H PRN PRN PO Dexamethasone (DECADRON) 6 MG DAILY PO Dextrose/Water (DEXTROSE 50% W SYRINGE) 25 ML ASDIR PRN IV (CKD) Dextrose/Water (DEXTROSE 50% W SYRINGE) 50 ML ASDIR PRN IV (CKD) Glucagon (GLUCAGON) 1 MG ASDIR PRN IM Heparin Sodium (HEPARIN 5000 UNITS/ML) 5,000 UNIT Q8H SUBQ Ondansetron HCl (ZOFRAN) 4 MG Q4H PRN PRN IV Albumin Human (ALBUMINAR-25%) 12.5 GM ASDIR PRN IV Lidocaine HCl (LIDOCAINE HCL/PF) 0.5 ML ASDIR PRN I-DERMAL (CKD) Mannitol (MANNITOL 25% 12.5GM/50ML) 12.5 GM ASDIR PRN IV Sodium Chloride (SODIUM CHLORIDE 0.9%) 2,000 ML ASDIR PRN IV Sodium Chloride (SODIUM CHLORIDE) 10 ML ASDIR PRN IV Sodium Chloride (SODIUM CHLORIDE 0.9%) 250 ML ASDIR PRN IV Physical Exam General appearance: no acute distress Head/Eyes: atraumatic, normocephalic ENT: normal ear left, normal ear right, normal nose Neck: full range of motion, no JVD Cardiovascular: normal heart sounds, regular rate rhythm Respiratory: clear to auscultation, symmetric expansion, no distress Abdomen: non-tender, normal bowel sounds, soft, no distention Extremities: no clubbing, no cyanosis, no edema Neuro/CONSOLE ASSEMBLER: non focal, alert and oriented to herself, doesn't know the name of the hospital Skin: dry, no rash Results Findings/Data: Laboratory Tests 11/08 11/08 11/08 11/07 11/07 1200 0759 429 2017 1749 Chemistry Sodium (134 - 147 mEq/L) 137 [...] (Auto) (14.0 - 32.0 %) 7.0 L Bergen % (Auto) (4.8 - 9.0 %) 4.3 L Eos % (Auto) (0.3 - 3.7 %) 0.0 L Baso % (Auto) (0.0 - 2.0 %) 0.0 Neut # (Auto) (2.0 - 7.6 x10 3/uL) 4.92 Lymph # (Auto) (1.0 - 3.8 x10 3/uL) 0.39 L Bergen # (Auto) (0.1 - 0.8 x10 3/uL) 0.24 Eos # (Auto) (0.0 - 0.2 x10 3/uL) 0.00 Baso # (Auto) (0.0 - 0.2 x10 3/uL) 0.00 Abs Immat Gran (auto) (0.00 - 0.03 x10 3/uL) 0.02 Add Manual Diff NO Immature Gran % (0.0 - 2.0 %) 0.4 Nucleated RBC % (0 - 0 %) 0.0 Nucleated RBCs # (Man) (0.0 - 0.1 x10 3/uL) 0.00 Diagnosis, Assessment Plan Problem List/A P: 1. [...] sister states pt IS VACCINATED with j/j vaccine x2. Hyperkalemia -resolved * HD, nephrology following Hypoxia -currently on room air * abnormal CXR * pulmonary following, history of tobacco abuse Elevated troponin I level * echo pending; cards following HTN (hypertension) * BP controlled Diabetes -blood glucose controlled * Continue SSI. Metabolic encephalopathy * CT head/PT/OT eval. probably multifactorial from all above. Pt sister was concerned about a UTI. (pt makes urine). Follow-up UA and culture. Nausea and vomiting * CT of the abdomen pelvis reviewed, symptoms improved, advance to cardiac diet * Gastroenterology following, supportive care with antiemetics as needed End-stage renal disease * HD TTS per nephrology DVT prophylaxis: Heparin subcutaneous Labs stable Quality: Gen Med Crit Care VTE Prophylaxis VTE prophylaxis initiated: yes Current Medications Current medication review: I attest that the foregoing medication list in the medical record is true, accurate, and complete to the best of my knowledge. Advanced Care Plan 65 or Older Discussed with: surrogate decis. maker Discussion included: living will at 1415 RPT #:[id number] END OF REPORT [facility] 2021-11-07 15:34:00 [facility] Hospitalist Progress Note REPORT#:[id number] REPORT STATUS: Signed DATE:11/07/21 TIME: 1534 PATIENT: VALENTINE MCNALLY UNIT #: [id number] ROOM/BED: [place] [id number] : 53 AGE: 66 SEX: F ATTEND: Ivan Freitas MD ADM AUTHOR: Heber Rainey DO * ALL edits or amendments must be made on the electronic/computer document * Subjective Comments: Patient seen and examined, reports she is feeling better but still on 3 L via nasal cannula. Would like her diet advanced. Discussed case with RN. Patient denies any new complaints Objective General VS/I O: Vital Signs: Date Time Temp Pulse Resp B/P B/P Pulse O2 O2 Flow FiO2 Mean Ox Delivery Rate 11/07 1048 98.4 67 17 138/72 93.9 92 Room air 11/07 0832 66 166/74 0.0 94 11/07 0800 3 11/07 0444 98.2 68 17 172/50 90.8 92 Room air 92 11/06 2308 98.4 64 17 161/65 97.2 91 Room air 91 11/06 2000 Nasal 3 cannula 11/06 1929 [...] Sodium Chloride (SODIUM CHLORIDE 0.9%) 50 ML Q24H IV Remdesivir (REMDESIVIR 100MG LYOPHYLIZED) 100 MG Q24H IV Sodium Chloride (SODIUM CHLORIDE 0.9% 100 ML) 100 ML Amlodipine Besylate (NORVASC) 10 MG DAILY PO Famotidine (PEPCID) 20 MG Q24H IV Simvastatin (SIMVASTATIN) 10 MG BEDTIME PO Calcium Acetate (CALCIUM ACETATE) 1,334 MG C MEALS PO Hydralazine HCl (APRESOLINE) 10 MG Q4H PRN PRN PO Aspirin (ASPIRIN) 81 MG DAILY PO Furosemide (LASIX) 40 MG DAILY PO Isosorbide Mononitrate (Imdur 30 mg) 60 MG DAILY PO Carvedilol (COREG) 25 MG BID MEALS PO Insulin Human Lispro (HUMALOG) 0 AC HS SUBQ Acetaminophen (TYLENOL) 650 MG Q4H PRN PRN PO Dexamethasone (DECADRON) 6 MG DAILY PO Dextrose/Water (DEXTROSE 50% W SYRINGE) 25 ML ASDIR PRN IV (CKD) Dextrose/Water (DEXTROSE 50% W SYRINGE) 50 ML ASDIR PRN IV (CKD) Glucagon (GLUCAGON) 1 MG ASDIR PRN IM Heparin Sodium (HEPARIN 5000 UNITS/ML) 5,000 UNIT Q8H SUBQ Ondansetron HCl (ZOFRAN) 4 MG Q4H PRN PRN IV Albumin Human (ALBUMINAR-25%) 12.5 GM ASDIR PRN IV Lidocaine HCl (LIDOCAINE HCL/PF) 0.5 ML ASDIR PRN I-DERMAL (CKD) Mannitol (MANNITOL 25% 12.5GM/50ML) 12.5 GM ASDIR PRN IV Sodium Chloride (SODIUM CHLORIDE 0.9%) 2,000 ML ASDIR PRN IV Sodium Chloride (SODIUM CHLORIDE) 10 ML ASDIR PRN IV Sodium Chloride (SODIUM CHLORIDE 0.9%) 250 ML ASDIR PRN IV Physical Exam General appearance: alert, awake, oriented Head/Eyes: atraumatic, normocephalic ENT: normal ear left, normal ear right, normal nose Neck: full range of motion, no JVD Cardiovascular: normal heart sounds, regular rate rhythm Respiratory: clear to auscultation, symmetric expansion, no distress Abdomen: non-tender, normal bowel sounds, soft, no distention Extremities: no clubbing, no cyanosis, no edema Neuro/CONSOLE ASSEMBLER: non focal, alert and oriented to herself, doesn't know the name of the hospital [...] (Auto) (14.0 - 32.0 %) 6.8 L Bergen % (Auto) (4.8 - 9.0 %) 5.6 Eos % (Auto) (0.3 - 3.7 %) 0.0 L Baso % (Auto) (0.0 - 2.0 %) 0.0 Neut # (Auto) (2.0 - 7.6 x10 3/uL) 4.24 Lymph # (Auto) (1.0 - 3.8 x10 3/uL) 0.33 L Bergen # (Auto) (0.1 - 0.8 x10 3/uL) 0.27 Eos # (Auto) (0.0 - 0.2 x10 3/uL) 0.00 Baso # (Auto) (0.0 - 0.2 x10 3/uL) 0.00 Abs Immat Gran (auto) (0.00 - 0.03 x10 3/uL) 0.01 Add Manual Diff NO Immature Gran % (0.0 - 2.0 %) 0.2 Nucleated RBC % (0 - 0 %) 0.0 Nucleated RBCs # (Man) (0.0 - 0.1 x10 3/uL) 0.00 Diagnosis, Assessment Plan Problem List/A P: 1. [...] sister states pt IS VACCINATED with j/j vaccine x2. Hyperkalemia * HD, nephrology following Hypoxia * abnormal CXR * pulmonary following, history of tobacco abuse Elevated troponin I level * echo/cards following HTN (hypertension) * restart BP meds, patient lost IV access and as needed antihypertensive started * BP also likely improved post hemodialysis Diabetes * Continue SSI. Metabolic encephalopathy * CT head/PT/OT eval. probably multifactorial from all above. Pt sister was concerned about a UTI. (pt makes urine). Follow-up UA and culture. Nausea and vomiting * CT of the abdomen pelvis reviewed, symptoms improved, advance to cardiac diet * Gastroenterology following, supportive care with antiemetics as needed End-stage renal disease * HD TTS per nephrology DVT prophylaxis: Heparin subcutaneous Quality: Gen Med Crit Care VTE Prophylaxis VTE prophylaxis initiated: yes Current Medications Current medication review: I attest that the foregoing medication list in the medical record is true, accurate, and complete to the best of my knowledge. Advanced Care Plan 65 or Older Discussed with: surrogate decis. maker Discussion included: living will at 1539 RPT #:[id number] END OF REPORT [facility] 2021-11-07 13:11:00 [facility]) Pulmonology Progress Note REPORT#:[id number] REPORT STATUS: Signed DATE:11/07/21 TIME: 1311 PATIENT: VALENTINE MCNALLY UNIT #: [id number] ROOM/BED: [place] [id number] : 53 AGE: 66 SEX: F ATTEND: Ivan Freitas MD ADM AUTHOR: Shanika Vasquez MD * ALL edits or amendments must be made on the electronic/computer document * Subjective Chief complaint: No acute events overnight Reports feeling better She is vaccinated with the Tobi Tobi vaccine Review of Systems ROS Constitutional: Denies: chills, fatigue. Respiratory: Denies: PAN (dyspnea on exertion), hemoptysis, pneumonia, productive cough ( sputum), SOB, wheezing. Cardiovascular: [...] Exam General appearance: alert, awake, oriented, no acute distress, pleasant, conversational, mental status normal, no respiratory distress Head/eyes: atraumatic, normocephalic, PERRL Neck: full range of motion, non-tender Cardiovascular: normal heart sounds, normal S1/S2, regular rate rhythm, no murmur, no rub, no gallop Respiratory/chest: on oxygen, aerating well, clear to auscultation, symmetric expansion, no distress, no tenderness Abdomen: soft, non-tender, no CVA tenderness, no distention Extremities: no cyanosis, no edema Musculoskeletal: no muscle spasm Neuro/CONSOLE ASSEMBLER: alert Results Findings/Data: Laboratory Tests 11/07/21 0455: [...] (Auto) (14.0 - 32.0 %) 6.8 L Bergen % (Auto) (4.8 - 9.0 %) 5.6 Eos % (Auto) (0.3 - 3.7 %) 0.0 L Baso % (Auto) (0.0 - 2.0 %) 0.0 Neut # (Auto) (2.0 - 7.6 x10 3/uL) 4.24 Lymph # (Auto) (1.0 - 3.8 x10 3/uL) 0.33 L Bergen # (Auto) (0.1 - 0.8 x10 3/uL) 0.27 Eos # (Auto) (0.0 - 0.2 x10 3/uL) 0.00 Baso # (Auto) (0.0 - 0.2 x10 3/uL) 0.00 Abs Immat Gran (auto) (0.00 - 0.03 x10 3/uL) 0.01 Add Manual Diff NO Immature Gran % (0.0 - 2.0 %) 0.2 Nucleated RBC % (0 - 0 %) 0.0 Nucleated RBCs # (Man) (0.0 - 0.1 x10 3/uL) 0.00 Diagnosis, Assessment Plan Free Text A P: Impressions: Acute hypoxemic respiratory failur COVID 19 infecction ESRD on HD DM CAD Recommendations: Improved pulmonary status now on room air saturating well CXR reviewed extensive bilateral pulmonary opacities with superimposed edema Lower cuts of the lungs reviewed and CT abdomen shows patchy opacities consistent with COVID-19 infection Status post hemodialysis with improvement in oxygenation Maintain SPO2 more than 92% C/w decadron for 10 days Continue remdesivir for 5 days Continue with incentive spirometer C/w bronchodilators ESRD on HD per renal Assess home oxygen needs prior to discharge Outpatient pulmonary follow-up and repeat chest x-ray in 6 weeks DVT ppx Full Code at 1313 RPT #:[id number] END OF REPORT [facility] 2021-11-07 08:54:00 [facility] Gastroenterology Progress Note REPORT#:[id number] REPORT STATUS: Signed DATE:11/07/21 TIME: 853 PATIENT: VALENTINE MCNALLY UNIT #: [id number] ROOM/BED: [place] [address] : 53 AGE: 66 SEX: F ATTEND: Ivan Freitas MD ADM AUTHOR: Heber Dunbar PHD * ALL edits or amendments must be made on the electronic/computer document * Subjective Comments: Nursing reports patient is eating small amounts of full liquid diet but is requesting regular food (eg. pork chops/hamburgers); no abdominal pain Objective General VS/I O: Last Documented: Result Date Time Pulse Ox 94 11/07 0832 B/P 166/74 11/07 0832 B/P Mean 0.0 11/07 0832 Pulse 66 11/07 0832 FiO2 92 11/07 044 O2 Delivery Room air 11/07 443 Temp 36.8 11/07 0444 Resp 17 11/07 044 O2 Flow Rate 3 11/06 2000 24 hour I O ending at 0700: 11/07 0700 11/06 1900 Intake Total Output Total 3200 Balance -3200 Output, 3200 Hemodialysis PATIENT WEIGHT: Weight (lb): Weight (oz): Weight (kg): 101.500 Physical Exam General appearance: alert, awake, oriented, no acute distress Abdomen: non-tender, normal bowel sounds, soft, no distention Diagnosis, Assessment Plan Free Text A P: 1. Nausea/vomiting - improved. 2. COVID 19 infection. Plan: 1. Advance diet as tolerated to bland/cardiac diet. 2. Anti-emetics as needed. 3. If tolerating diet, the patient can be discharged home from a GI perspective. at 0856 RPT #:[id number] END OF REPORT [facility] 2021-11-07 08:32:00 [facility] Nephrology Progress Note REPORT#:[id number] REPORT STATUS: Signed DATE:11/07/21 TIME: 0832 PATIENT: VALENTINE MCNALLY UNIT #: [id number] ROOM/BED: [place] [address] : 53 AGE: 66 SEX: F ATTEND: Ivan Freitas MD ADM AUTHOR: Marie Salas MD * ALL edits or amendments must be made on the electronic/computer document * Subjective Comments: Doing better Objective General VS/I O: Vital Signs: Date Time Temp Pulse Resp B/P B/P Pulse O2 O2 Flow FiO2 Mean Ox Delivery Rate 11/07 0832 66 166/74 0.0 94 11/07 0444 98.2 68 17 172/50 90.8 92 Room air 92 11/06 2308 98.4 64 17 161/65 97.2 91 Room air 91 11/06 2000 Nasal 3 cannula 11/06 1929 [...] Sodium Chloride (SODIUM CHLORIDE 0.9%) 50 ML Q24H IV Remdesivir (REMDESIVIR 100MG LYOPHYLIZED) 100 MG Q24H IV Sodium Chloride (SODIUM CHLORIDE 0.9% 100 ML) 100 ML Amlodipine Besylate (NORVASC) 10 MG DAILY PO Famotidine (PEPCID) 20 MG Q24H IV Simvastatin (SIMVASTATIN) 10 MG BEDTIME PO Calcium Acetate (CALCIUM ACETATE) 1,334 MG C MEALS PO Hydralazine HCl (APRESOLINE) 10 MG Q4H PRN PRN PO Aspirin (ASPIRIN) 81 MG DAILY PO Furosemide (LASIX) 40 MG DAILY PO Isosorbide Mononitrate (Imdur 30 mg) 60 MG DAILY PO Carvedilol (COREG) 25 MG BID MEALS PO Insulin Human Lispro (HUMALOG) 0 AC HS SUBQ Acetaminophen (TYLENOL) 650 MG Q4H PRN PRN PO Dexamethasone (DECADRON) 6 MG DAILY PO Dextrose/Water (DEXTROSE 50% W SYRINGE) 25 ML ASDIR PRN IV (CKD) Dextrose/Water (DEXTROSE 50% W SYRINGE) 50 ML ASDIR PRN IV (CKD) Glucagon (GLUCAGON) 1 MG ASDIR PRN IM Heparin Sodium (HEPARIN 5000 UNITS/ML) 5,000 UNIT Q8H SUBQ Ondansetron HCl (ZOFRAN) 4 MG Q4H PRN PRN IV Albumin Human (ALBUMINAR-25%) 12.5 GM ASDIR PRN IV Lidocaine HCl (LIDOCAINE HCL/PF) 0.5 ML ASDIR PRN I-DERMAL (CKD) Mannitol (MANNITOL 25% 12.5GM/50ML) 12.5 GM ASDIR PRN IV Sodium Chloride (SODIUM CHLORIDE 0.9%) 2,000 ML ASDIR PRN IV Sodium Chloride (SODIUM CHLORIDE) 10 ML ASDIR PRN IV Sodium Chloride (SODIUM CHLORIDE 0.9%) 250 ML ASDIR PRN IV Physical Exam General appearance: alert, awake Head/eyes: atraumatic, normocephalic, PERRLA Neck: no JVD, no lymphadenopathy Cardiovascular: normal heart sounds, regular rate and rhythm, no rub Respiratory: decreased breath sounds Abdomen: non-tender, normal bowel sounds, soft, no rebound Genitourinary: no bladder distention, no flank pain, no urinary catheter Extremities: no edema, no gangrene Neuro/CONSOLE ASSEMBLER: alert, oriented X 3, CN II-XII intact, normal speech Results Findings/Data: Laboratory Tests 11/07 [...] (Auto) (14.0 - 32.0 %) 6.8 L Bergen % (Auto) (4.8 - 9.0 %) 5.6 Eos % (Auto) (0.3 - 3.7 %) 0.0 L Baso % (Auto) (0.0 - 2.0 %) 0.0 Neut # (Auto) (2.0 - 7.6 x10 3/uL) 4.24 Lymph # (Auto) (1.0 - 3.8 x10 3/uL) 0.33 L Bergen # (Auto) (0.1 - 0.8 x10 3/uL) 0.27 Eos # (Auto) (0.0 - 0.2 x10 3/uL) 0.00 Baso # (Auto) (0.0 - 0.2 x10 3/uL) 0.00 Abs Immat Gran (auto) (0.00 - 0.03 x10 3/uL) 0.01 Add Manual Diff NO Immature Gran % (0.0 - 2.0 %) 0.2 Nucleated RBC % (0 - 0 %) 0.0 Nucleated RBCs # (Man) (0.0 - 0.1 x10 3/uL) 0.00 Diagnosis, Assessment Plan Free Text A P: 1. ESRD continue with TTS schedule, HD in a.m. with UF as blood pressure tolerates 2. Electrolytes within normal range today 3. Nausea vomiting symptoms improving. CT abdomen and pelvis noted 4. Anemia of CKD start ÁNGEL if hemoglobin remains less than 10 5. COVID-19 pneumonia ID consulted, started on remdesivir and steroid 6. Hypertension remains elevated, likely secondary to steroid. Started on amlodipine 7. DM2 per primary team at 1218 RPT #:[id number] END OF REPORT [facility] 2021-11-07 08:08:00 [facility] ([facility]) Infectious Dis. Progress Note REPORT#:[id number] REPORT STATUS: Signed DATE:11/07/21 TIME: 0808 PATIENT: VALENTINE MCNALLY UNIT #: [id number] ROOM/BED: [place] [address] : 53 AGE: 66 SEX: F ATTEND: Ivan Freitas MD ADM AUTHOR: Odell Hebert MD * ALL edits or amendments must be made on the electronic/computer document * Subjective Chief complaint: Shortness of breath Patient reports: Yes: feeling better. No: complaints, abdominal pain, back pain, bowel movement, burning with urination, cough, diarrhea, fever, headache, nausea, pain, pain controlled, shortness of breath, vomiting, wheezing. Review of Systems All systems rev neg: except as marked Objective General VS/I O: Last Documented: Result Date Time Pulse Ox 93 11/07 175 B/P 163/62 11/07 1753 B/P Mean 95.7 11/07 1753 O2 Delivery Room air 11/07 175 Temp 98.1 11/07 1753 Pulse 66 11/07 1753 Resp 17 11/07 175 O2 Flow Rate 3 11/07 0800 FiO2 92 11/07 0444 Vital Signs Date Temp Pulse Resp B/P B/P Mean Pulse Ox FiO2 11/06-11/07 98.1-98.4 64-68 17 138-172/50-74 0.0-97.2 91-94 91-92 24 hour I O ending at 0700: 11/07 0700 11/06 1900 Intake Total Output Total 3200 Balance -3200 Output, 3200 Hemodialysis PATIENT WEIGHT: Weight (lb): Weight (oz): Weight (kg): 101.500 Physical Exam General appearance: alert, awake, oriented Head/Eyes: atraumatic, clear cornea, EOMI, normal conjunctiva/sclera, normal eyelids/periorb, normocephalic, PERRL ENT: normal dentition, normal nose, normal pharynx, normal sinus Neck: full range of motion, non-tender, normal thyroid, supple/no meningismus, no bruit/NL carotids, no JVD, no masses or swelling, no lymphadenopathy Cardiovascular: regular rate rhythm Respiratory: clear to auscultation, no distress Abdomen: non-tender, soft, no distention, no guarding, no mass/organomegaly, no rebound Extremities: moves all, normal capillary refill, normal sensory, no edema Results Findings/Data: Laboratory Tests 11/07 11/07 11/07 11/07 1750 1045 0805 0455 Chemistry Sodium (134 - 147 mEq/L) [...] (Auto) (14.0 - 32.0 %) 6.8 L Bergen % (Auto) (4.8 - 9.0 %) 5.6 Eos % (Auto) (0.3 - 3.7 %) 0.0 L Baso % (Auto) (0.0 - 2.0 %) 0.0 Neut # (Auto) (2.0 - 7.6 x10 3/uL) 4.24 Lymph # (Auto) (1.0 - 3.8 x10 3/uL) 0.33 L Bergen # (Auto) (0.1 - 0.8 x10 3/uL) 0.27 Eos # (Auto) (0.0 - 0.2 x10 3/uL) 0.00 Baso # (Auto) (0.0 - 0.2 x10 3/uL) 0.00 Abs Immat Gran (auto) (0.00 - 0.03 x10 3/uL) 0.01 Add Manual Diff NO Immature Gran % (0.0 - 2.0 %) 0.2 Nucleated RBC % (0 - 0 %) 0.0 Nucleated RBCs # (Man) (0.0 - 0.1 x10 3/uL) 0.00 Results: labs reviewed, vital signs reviewed, current med profile rev'd Diagnosis, Assessment Plan Free Text A P: 1. Severe Covid with pneumonia and hypoxemia * Patient received a single dose of J J vaccine many months ago * remdesivir for 5 days day #3 * Dexamethasone per recovery trial for 10 days day #2 * DVT prophylaxis * C-reactive protein * Oxygen supplementation to keep her oxygen saturation more than 94% * currently she is on 4L from 6 L 2. End-stage renal disease on hemodialysis 3. Diabetes mellitus type 2 4. Hypertension at 1946 RPT #:[id number] END OF REPORT [facility] 2021-11-07 06:43:00 [facility] ([facility] Cardiology Progress Note REPORT#:[id number] REPORT STATUS: Signed DATE:11/07/21 TIME: 06 PATIENT: VALENTINE MCNALLY UNIT #: [id number] ROOM/BED: [place] [address] : 53 AGE: 66 SEX: F ATTEND: Ivan Freitas MD ADM AUTHOR: Henry Melara MD * ALL edits or amendments must be made on the electronic/computer document * Subjective Chief complaint: Doing good Objective General VS/I O: 24 hour I O ending at 0700: 11/07 0700 11/06 1900 Intake Total Output Total 3200 Balance -3200 Output, 3200 Hemodialysis Vital Signs: Date Time Temp Pulse Resp B/P B/P Pulse O2 O2 Flow FiO2 Mean Ox Delivery Rate 11/07 0444 98.2 68 17 172/50 90.8 92 Room air 92 11/06 2308 98.4 64 17 161/65 97.2 91 Room air 91 11/06 2000 Nasal 3 cannula 11/06 1929 [...] Sodium Chloride (SODIUM CHLORIDE 0.9%) 50 ML Q24H IV Remdesivir (REMDESIVIR 100MG LYOPHYLIZED) 100 MG Q24H IV Sodium Chloride (SODIUM CHLORIDE 0.9% 100 ML) 100 ML Amlodipine Besylate (NORVASC) 10 MG DAILY PO Famotidine (PEPCID) 20 MG Q24H IV Simvastatin (SIMVASTATIN) 10 MG BEDTIME PO Calcium Acetate (CALCIUM ACETATE) 1,334 MG C MEALS PO Hydralazine HCl (APRESOLINE) 10 MG Q4H PRN PRN PO Aspirin (ASPIRIN) 81 MG DAILY PO Furosemide (LASIX) 40 MG DAILY PO Isosorbide Mononitrate (Imdur 30 mg) 60 MG DAILY PO Carvedilol (COREG) 25 MG BID MEALS PO Insulin Human Lispro (HUMALOG) 0 AC HS SUBQ Acetaminophen (TYLENOL) 650 MG Q4H PRN PRN PO Dexamethasone (DECADRON) 6 MG DAILY PO Dextrose/Water (DEXTROSE 50% W SYRINGE) 25 ML ASDIR PRN IV (CKD) Dextrose/Water (DEXTROSE 50% W SYRINGE) 50 ML ASDIR PRN IV (CKD) Glucagon (GLUCAGON) 1 MG ASDIR PRN IM Heparin Sodium (HEPARIN 5000 UNITS/ML) 5,000 UNIT Q8H SUBQ Ondansetron HCl (ZOFRAN) 4 MG Q4H PRN PRN IV Albumin Human (ALBUMINAR-25%) 12.5 GM ASDIR PRN IV Lidocaine HCl (LIDOCAINE HCL/PF) 0.5 ML ASDIR PRN I-DERMAL (CKD) Mannitol (MANNITOL 25% 12.5GM/50ML) 12.5 GM ASDIR PRN IV Sodium Chloride (SODIUM CHLORIDE 0.9%) 2,000 ML ASDIR PRN IV Sodium Chloride (SODIUM CHLORIDE) 10 ML ASDIR PRN IV Sodium Chloride (SODIUM CHLORIDE 0.9%) 250 ML ASDIR PRN IV Physical Exam General appearance: sleeping [...] extremity: LE assessment: normal temperature, no edema Neuro/CONSOLE ASSEMBLER: normal speech Psychiatry: normal affect Diagnosis, Assessment Plan Free Text DxA P Notes Free Text DxA P Notes: 66 y/o F w/ PMHx: End-stage renal disease on dialysis, hypertension, diabetic. Pm Head Cook is consulted for elevated troponin. -Elevated troponin, mild. Likely due to end-stage renal disease High sensitive troponin 81. LDL 54.6 Will do nuclear stress test after recover from Covid. Echocardiogram showed EF 50-55% - Hypertension. On nitrate and beta-shamir. - End-stage renal disease. On dialysis. Per Nephro. - COVID-19. Per Pulm On Decadron ID seeing pt. Doing well. at 0643 [facility] #:[id number] END OF REPORT [facility] 2021-11-06 14:12:00 [facility] ([facility]) Hospitalist Progress Note REPORT#:[id number] REPORT STATUS: Signed DATE:11/06/21 TIME: 1412 PATIENT: VALENTINE MCNALLY UNIT #: [id number] ROOM/BED: C136-1 : 53 AGE: 66 SEX: F ATTEND: Ivan Freitas MD ADM AUTHOR: Heber Rainey DO * ALL edits or amendments must be made on the electronic/computer document * Subjective Comments: Patient seen and examined, denies any new complaints. Currently on 3 L via nasal cannula. Reports her nausea and vomiting have currently resolved. Wants to try something with more substance Objective General VS/I O: Vital Signs: Date Time Temp Pulse Resp B/P B/P Pulse O2 O2 Flow FiO2 Mean Ox Delivery Rate 11/06 1201 [...] Sodium Chloride (SODIUM CHLORIDE 0.9%) 50 ML Q24H IV Remdesivir (REMDESIVIR 100MG LYOPHYLIZED) 100 MG Q24H IV Sodium Chloride (SODIUM CHLORIDE 0.9% 100 ML) 100 ML Amlodipine Besylate (NORVASC) 10 MG DAILY PO Famotidine (PEPCID) 20 MG Q12HR IV (DC) Famotidine (PEPCID) 20 MG Q24H IV Simvastatin (SIMVASTATIN) 10 MG BEDTIME PO Calcium Acetate (CALCIUM ACETATE) 1,334 MG C MEALS PO Sodium Chloride (SODIUM CHLORIDE 0.9%) 50 ML ONCE IV (DC) Remdesivir (REMDESIVIR 100MG LYOPHYLIZED) 200 MG ONCE ONE IV (DC) Sodium Chloride (SODIUM CHLORIDE 0.9%) 250 ML Hydralazine HCl (APRESOLINE) 10 MG Q4H PRN PRN PO Aspirin (ASPIRIN) 81 MG DAILY PO Furosemide (LASIX) 40 MG DAILY PO Isosorbide Mononitrate (Imdur 30 mg) 60 MG DAILY PO Carvedilol (COREG) 25 MG BID MEALS PO Insulin Human Lispro (HUMALOG) 0 AC HS SUBQ Acetaminophen (TYLENOL) 650 MG Q4H PRN PRN PO Dexamethasone (DECADRON) 6 MG DAILY PO Dextrose/Water (DEXTROSE 50% W SYRINGE) 25 ML ASDIR PRN IV (CKD) Dextrose/Water (DEXTROSE 50% W SYRINGE) 50 ML ASDIR PRN IV (CKD) Glucagon (GLUCAGON) 1 MG ASDIR PRN IM Heparin Sodium (HEPARIN 5000 UNITS/ML) 5,000 UNIT Q8H SUBQ Ondansetron HCl (ZOFRAN) 4 MG Q4H PRN PRN IV Albumin Human (ALBUMINAR-25%) 12.5 GM ASDIR PRN IV Lidocaine HCl (LIDOCAINE HCL/PF) 0.5 ML ASDIR PRN I-DERMAL (CKD) Mannitol (MANNITOL 25% 12.5GM/50ML) 12.5 GM ASDIR PRN IV Sodium Chloride (SODIUM CHLORIDE 0.9%) 2,000 ML ASDIR PRN IV Sodium Chloride (SODIUM CHLORIDE) 10 ML ASDIR PRN IV Sodium Chloride (SODIUM CHLORIDE 0.9%) 250 ML ASDIR PRN IV Physical Exam General appearance: alert, awake, oriented Head/Eyes: atraumatic, normocephalic ENT: normal ear left, normal ear right, normal nose Neck: full range of motion, no JVD Cardiovascular: normal heart sounds, regular rate rhythm Respiratory: clear to auscultation, symmetric expansion, no distress Abdomen: non-tender, normal bowel sounds, soft, no distention Extremities: no clubbing, no cyanosis, no edema Neuro/CONSOLE ASSEMBLER: non focal, alert and oriented to herself, doesn't know the name of the hospital [...] PT Patient/Control Mix (9.3 - 12.9 SECONDS) 11.9 Laboratory Tests 11/06 0400 Hematology WBC (4.5 [...] (Auto) (14.0 - 32.0 %) 7.8 L Bergen % (Auto) (4.8 - 9.0 %) 3.9 L Eos % (Auto) (0.3 - 3.7 %) 0.0 L Baso % (Auto) (0.0 - 2.0 %) 0.0 Neut # (Auto) (2.0 - 7.6 x10 3/uL) 2.25 Lymph # (Auto) (1.0 - 3.8 x10 3/uL) 0.20 L Bergen # (Auto) (0.1 - 0.8 x10 3/uL) 0.10 Eos # (Auto) (0.0 - 0.2 x10 3/uL) 0.00 Baso # (Auto) (0.0 - 0.2 x10 3/uL) 0.00 Abs Immat Gran (auto) (0.00 - 0.03 x10 3/uL) 0.01 Add Manual Diff NO Immature Gran % (0.0 - 2.0 %) 0.4 Nucleated RBC % (0 - 0 %) 0.0 Nucleated RBCs # (Man) (0.0 - 0.1 x10 3/uL) 0.00 Diagnosis, Assessment Plan Problem List/A P: 1. [...] sister states pt IS VACCINATED with j/j vaccine x2. Hyperkalemia * HD, nephrology following Hypoxia * abnormal CXR * pulmonary following, history of tobacco abuse Elevated troponin I level * echo/cards following HTN (hypertension) * restart BP meds, patient lost IV access and as needed antihypertensive started * BP also likely improved post hemodialysis Diabetes * Continue SSI. Metabolic encephalopathy * CT head/PT/OT eval. probably multifactorial from all above. Pt sister was concerned about a UTI. (pt makes urine). Follow-up UA and culture. Nausea and vomiting * CT of the abdomen pelvis reviewed, symptoms improved, advance to full liquid diet * Gastroenterology following, supportive care with antiemetics as needed End-stage renal disease * HD TTS per nephrology DVT prophylaxis: Heparin subcutaneous Quality: Gen Med Crit Care VTE Prophylaxis VTE prophylaxis initiated: yes Current Medications Current medication review: I attest that the foregoing medication list in the medical record is true, accurate, and complete to the best of my knowledge. Advanced Care Plan 65 or Older Discussed with: surrogate fela. maker Discussion included: living will at 1417 RPT #:[id number] END OF REPORT [facility] 2021-11-06 12:46:00 [facility] ([facility] Infectious Dis. Progress Note REPORT#:[id number] REPORT STATUS: Signed DATE:11/06/21 TIME: 1246 PATIENT: VALENTINE MCNALLY UNIT #: [id number] ROOM/BED: [place] [address] : 53 AGE: 66 SEX: F ATTEND: Ivan Freitas MD ADM AUTHOR: Odell Hebert MD * ALL edits or amendments must be made on the electronic/computer document * Subjective Chief complaint: Shortness of breath Patient reports: No: cough, diarrhea, fever, headache, nausea. Portions of this section were scribed by Guillermina Luevano on 11/06/21 at 1246 Objective General VS/I [...] Resp B/P B/P Mean Pulse Ox FiO2 11/05-11/06 36.4-37.0 64-79 12-18 98-163/55-69 76.8-100.1 89-100 36 24 hour I O ending at 0700: 11/06 0700 11/05 1900 Intake Total Output Total 1500 Balance -1500 Output, 1500 Hemodialysis PATIENT WEIGHT: Weight (lb): Weight (oz): Weight (kg): 101.500 Physical Exam General appearance: alert, awake, oriented Head/Eyes: atraumatic, clear cornea, EOMI, normal conjunctiva/sclera, normal eyelids/periorb, normocephalic, PERRL ENT: normal dentition, normal nose, normal pharynx, normal sinus Neck: full range of motion, non-tender, normal thyroid, supple/no meningismus, no bruit/NL carotids, no JVD, no masses or swelling, no lymphadenopathy Cardiovascular: regular rate rhythm Respiratory: clear to auscultation, no distress Abdomen: non-tender, soft, no distention, no guarding, no mass/organomegaly, no rebound [...] PT Patient/Control Mix (9.3 - 12.9 SECONDS) 11.9 Laboratory Tests 11/06 0400 Hematology WBC (4.5 [...] (Auto) (14.0 - 32.0 %) 7.8 L Bergen % (Auto) (4.8 - 9.0 %) 3.9 L Eos % (Auto) (0.3 - 3.7 %) 0.0 L Baso % (Auto) (0.0 - 2.0 %) 0.0 Neut # (Auto) (2.0 - 7.6 x10 3/uL) 2.25 Lymph # (Auto) (1.0 - 3.8 x10 3/uL) 0.20 L Bergen # (Auto) (0.1 - 0.8 x10 3/uL) 0.10 Eos # (Auto) (0.0 - 0.2 x10 3/uL) 0.00 Baso # (Auto) (0.0 - 0.2 x10 3/uL) 0.00 Abs Immat Gran (auto) (0.00 - 0.03 x10 3/uL) 0.01 Add Manual Diff NO Immature Gran % (0.0 - 2.0 %) 0.4 Nucleated RBC % (0 - 0 %) 0.0 Nucleated RBCs # (Man) (0.0 - 0.1 x10 3/uL) 0.00 Active Meds + DC'd Last 24 Hrs Sodium Chloride (SODIUM CHLORIDE 0.9%) 50 ML Q24H IV Remdesivir (REMDESIVIR 100MG LYOPHYLIZED) 100 MG Q24H IV Sodium Chloride (SODIUM CHLORIDE 0.9% 100 ML) 100 ML Amlodipine Besylate (NORVASC) 10 MG DAILY PO Famotidine (PEPCID) 20 MG Q12HR IV (DC) Famotidine (PEPCID) 20 MG Q24H IV Simvastatin (SIMVASTATIN) 10 MG BEDTIME PO Calcium Acetate (CALCIUM ACETATE) 1,334 MG C MEALS PO Sodium Chloride (SODIUM CHLORIDE 0.9%) 50 ML ONCE IV (DC) Remdesivir (REMDESIVIR 100MG LYOPHYLIZED) 200 MG ONCE ONE IV (DC) Sodium Chloride (SODIUM CHLORIDE 0.9%) 250 ML Hydralazine HCl (APRESOLINE) 10 MG Q4H PRN PRN PO Aspirin (ASPIRIN) 81 MG DAILY PO Furosemide (LASIX) 40 MG DAILY PO Isosorbide Mononitrate (Imdur 30 mg) 60 MG DAILY PO Carvedilol (COREG) 25 MG BID MEALS PO Insulin Human Lispro (HUMALOG) 0 AC HS SUBQ Acetaminophen (TYLENOL) 650 MG Q4H PRN PRN PO Dexamethasone (DECADRON) 6 MG DAILY PO Dextrose/Water (DEXTROSE 50% W SYRINGE) 25 ML ASDIR PRN IV (CKD) Dextrose/Water (DEXTROSE 50% W SYRINGE) 50 ML ASDIR PRN IV (CKD) Glucagon (GLUCAGON) 1 MG ASDIR PRN IM Heparin Sodium (HEPARIN 5000 UNITS/ML) 5,000 UNIT Q8H SUBQ Ondansetron HCl (ZOFRAN) 4 MG Q4H PRN PRN IV Albumin Human (ALBUMINAR-25%) 12.5 GM ASDIR PRN IV Lidocaine HCl (LIDOCAINE HCL/PF) 0.5 ML ASDIR PRN I-DERMAL (CKD) Mannitol (MANNITOL 25% 12.5GM/50ML) 12.5 GM ASDIR PRN IV Sodium Chloride (SODIUM CHLORIDE 0.9%) 2,000 ML ASDIR PRN IV Sodium Chloride (SODIUM CHLORIDE) 10 ML ASDIR PRN IV Sodium Chloride (SODIUM CHLORIDE 0.9%) 250 ML ASDIR PRN IV Portions of this section were scribed by Guillermina Luevano on 11/06/21 at 1246 Diagnosis, Assessment Plan Free Text A P: 1. Severe Covid with pneumonia and hypoxemia * Patient received a single dose of J J vaccine many months ago * remdesivir for 5 days day #2 * Dexamethasone per recovery trial for 10 days day #2 * DVT prophylaxis * C-reactive protein * Oxygen supplementation to keep her oxygen saturation more than 94% * currently she is on 4L from 6 L 2. End-stage renal disease on hemodialysis 3. Diabetes mellitus type 2 4. Hypertension Portions of this section were scribed by Guillermina Luevano on 11/06/21 at 1246 at 0690 RPT #:[id number] END OF REPORT [facility] 2021-11-06 10:59:00 [facility] ([facility]) Pulmonology Progress Note REPORT#:[id number] REPORT STATUS: Signed DATE:11/06/21 TIME: 1059 PATIENT: VALENTINE MCNALLY UNIT #: [id number] ROOM/BED: [place] [address] : 53 AGE: 66 SEX: F ATTEND: Ivan Freitas MD ADM AUTHOR: Shanika Vasquez MD * ALL edits or amendments must be made on the electronic/computer document * Subjective Chief complaint: No acute events overnight Reports feeling better She is vaccinated with the Tobi Tobi vaccine Review of Systems ROS Constitutional: Denies: chills, fatigue. Respiratory: Denies: PAN (dyspnea on exertion), hemoptysis, pneumonia, productive cough ( sputum), SOB, wheezing. Cardiovascular: Denies: chest pain, edema, orthopnea. GI: Denies: abdominal pain, nausea, vomiting. Heme: Denies: bleeding. Neuro: Denies: headache. Objective General VS/I O: Last Documented: Result Date Time Pulse Ox 97 11/06 0748 B/P 163/61 11/06 0748 B/P Mean 94.8 11/06 0748 O2 Delivery Nasal cannula 11/06 0748 O2 Flow Rate 4 11/06 0748 Temp 36.7 11/06 0748 Pulse 69 11/06 0748 Resp 12 11/06 0748 FiO2 36 11/06 0017 24 hour I O ending at 0700: 11/06 0700 11/05 1900 Intake Total Output Total 1500 Balance -1500 Output, 1500 Hemodialysis PATIENT WEIGHT: Weight (lb): Weight (oz): Weight (kg): 101.500 Medications: Active Meds + DC'd Last 24 Hrs Sodium Chloride (SODIUM CHLORIDE 0.9%) 50 ML Q24H IV Remdesivir (REMDESIVIR 100MG LYOPHYLIZED) 100 MG Q24H IV Sodium Chloride (SODIUM CHLORIDE 0.9% 100 ML) 100 ML Amlodipine Besylate (NORVASC) 10 MG DAILY PO (UNVr) Famotidine (PEPCID) 20 MG Q12HR IV (DC) Famotidine (PEPCID) 20 MG Q24H IV Simvastatin (SIMVASTATIN) 10 MG BEDTIME PO Calcium Acetate (CALCIUM ACETATE) 1,334 MG C MEALS PO Sodium Chloride (SODIUM CHLORIDE 0.9%) 50 ML ONCE IV (DC) Remdesivir (REMDESIVIR 100MG LYOPHYLIZED) 200 MG ONCE ONE IV (DC) Sodium Chloride (SODIUM CHLORIDE 0.9%) 250 ML Hydralazine HCl (APRESOLINE) 10 MG Q4H PRN PRN PO Aspirin (ASPIRIN) 81 MG DAILY PO Furosemide (LASIX) 40 MG DAILY PO Isosorbide Mononitrate (Imdur 30 mg) 60 MG DAILY PO Carvedilol (COREG) 25 MG BID MEALS PO Insulin Human Lispro (HUMALOG) 0 AC HS SUBQ Acetaminophen (TYLENOL) 650 MG Q4H PRN PRN PO Dexamethasone (DECADRON) 6 MG DAILY PO Dextrose/Water (DEXTROSE 50% W SYRINGE) 25 ML ASDIR PRN IV (CKD) Dextrose/Water (DEXTROSE 50% W SYRINGE) 50 ML ASDIR PRN IV (CKD) Glucagon (GLUCAGON) 1 MG ASDIR PRN IM Heparin Sodium (HEPARIN 5000 UNITS/ML) 5,000 UNIT Q8H SUBQ Ondansetron HCl (ZOFRAN) 4 MG Q4H PRN PRN IV Albumin Human (ALBUMINAR-25%) 12.5 GM ASDIR PRN IV Lidocaine HCl (LIDOCAINE HCL/PF) 0.5 ML ASDIR PRN I-DERMAL (CKD) Mannitol (MANNITOL 25% 12.5GM/50ML) 12.5 GM ASDIR PRN IV Sodium Chloride (SODIUM CHLORIDE 0.9%) 2,000 ML ASDIR PRN IV Sodium Chloride (SODIUM CHLORIDE) 10 ML ASDIR PRN IV Sodium Chloride (SODIUM CHLORIDE 0.9%) 250 ML ASDIR PRN IV Physical Exam General appearance: alert, awake, oriented, no acute distress, pleasant, conversational, mental status normal, no respiratory distress Head/eyes: atraumatic, normocephalic, PERRL Neck: full range of motion, non-tender Cardiovascular: normal heart sounds, normal S1/S2, regular rate rhythm, no murmur, no rub, no gallop Respiratory/chest: on oxygen, aerating well, clear to auscultation, symmetric expansion, no distress, no tenderness Abdomen: soft, non-tender, no CVA tenderness, no distention Extremities: no cyanosis, no edema Musculoskeletal: no muscle spasm Neuro/CONSOLE ASSEMBLER: alert Results Findings/Data: Laboratory Tests 11/06/21 0400: [...] PT Patient/Control Mix (9.3 - 12.9 SECONDS) 11.9 Laboratory Tests 11/06 0400 Hematology WBC (4.5 [...] (Auto) (14.0 - 32.0 %) 7.8 L Bergen % (Auto) (4.8 - 9.0 %) 3.9 L Eos % (Auto) (0.3 - 3.7 %) 0.0 L Baso % (Auto) (0.0 - 2.0 %) 0.0 Neut # (Auto) (2.0 - 7.6 x10 3/uL) 2.25 Lymph # (Auto) (1.0 - 3.8 x10 3/uL) 0.20 L Bergen # (Auto) (0.1 - 0.8 x10 3/uL) 0.10 Eos # (Auto) (0.0 - 0.2 x10 3/uL) 0.00 Baso # (Auto) (0.0 - 0.2 x10 3/uL) 0.00 Abs Immat Gran (auto) (0.00 - 0.03 x10 3/uL) 0.01 Add Manual Diff NO Immature Gran % (0.0 - 2.0 %) 0.4 Nucleated RBC % (0 - 0 %) 0.0 Nucleated RBCs # (Man) (0.0 - 0.1 x10 3/uL) 0.00 Radiology data: Recent Impressions: CAT SCAN - [...] adrenal CT. (Reference: Liban) REFERENCES: 1. Carlos S, et al., Radiological Society of [place] Expert Consensus Statement on Reporting Chest CT Findings Related to COVID-19. Endorsed by the Society of Thoracic Radiology, the [place] [employer], and RSNA. Published December 13, 2019. 2. Liban PIERCE, et al. Management of Incidental Adrenal Masses: A White Paper of the ACR Incidental Findings Committee. J Am Loren Radiol. 2017;14(8):2250-6023. Impression By: Rivas Richardson M.D. Diagnosis, Assessment Plan Free Text A P: Impressions: Acute hypoxemic respiratory failur COVID 19 infecction ESRD on HD DM CAD Recommendations: Stable pulmonary status on 4 L CXR reviewed extensive bilateral pulmonary opacities with superimposed edema Lower cuts of the lungs reviewed and CT abdomen shows patchy opacities consistent with COVID-19 infection Maintain SPO2 more than 92% C/w decadron Continue remdesivir Continue with incentive spirometer C/w bronchodilators ESRD on HD per renal DVT ppx Full Code at 1101 RPT #:[id number] END OF REPORT [facility] 2021-11-06 10:35:00 [facility] Nephrology Progress Note REPORT#:[id number] REPORT STATUS: Signed DATE:11/06/21 TIME: 1035 PATIENT: VALENTINE MCNALLY UNIT #: [id number] ROOM/BED: [place] [address] : 53 AGE: 66 SEX: F ATTEND: Ivan Freitas MD ADM AUTHOR: Marie Salas MD * ALL edits or amendments must be made on the electronic/computer document * Subjective Comments: Feels better. Objective General VS/I O: Vital Signs: Date Time Temp Pulse Resp B/P B/P Pulse O2 O2 Flow FiO2 Mean Ox Delivery Rate 11/06 0748 [...] Sodium Chloride (SODIUM CHLORIDE 0.9%) 50 ML Q24H IV Remdesivir (REMDESIVIR 100MG LYOPHYLIZED) 100 MG Q24H IV Sodium Chloride (SODIUM CHLORIDE 0.9% 100 ML) 100 ML Famotidine (PEPCID) 20 MG Q12HR IV (DC) Famotidine (PEPCID) 20 MG Q24H IV Simvastatin (SIMVASTATIN) 10 MG BEDTIME PO Calcium Acetate (CALCIUM ACETATE) 1,334 MG C MEALS PO Sodium Chloride (SODIUM CHLORIDE 0.9%) 50 ML ONCE IV (DC) Remdesivir (REMDESIVIR 100MG LYOPHYLIZED) 200 MG ONCE ONE IV (DC) Sodium Chloride (SODIUM CHLORIDE 0.9%) 250 ML Hydralazine HCl (APRESOLINE) 10 MG Q4H PRN PRN PO Aspirin (ASPIRIN) 81 MG DAILY PO Furosemide (LASIX) 40 MG DAILY PO Isosorbide Mononitrate (Imdur 30 mg) 60 MG DAILY PO Carvedilol (COREG) 25 MG BID MEALS PO Insulin Human Lispro (HUMALOG) 0 AC HS SUBQ Acetaminophen (TYLENOL) 650 MG Q4H PRN PRN PO Dexamethasone (DECADRON) 6 MG DAILY PO Dextrose/Water (DEXTROSE 50% W SYRINGE) 25 ML ASDIR PRN IV (CKD) Dextrose/Water (DEXTROSE 50% W SYRINGE) 50 ML ASDIR PRN IV (CKD) Glucagon (GLUCAGON) 1 MG ASDIR PRN IM Heparin Sodium (HEPARIN 5000 UNITS/ML) 5,000 UNIT Q8H SUBQ Ondansetron HCl (ZOFRAN) 4 MG Q4H PRN PRN IV Albumin Human (ALBUMINAR-25%) 12.5 GM ASDIR PRN IV Lidocaine HCl (LIDOCAINE HCL/PF) 0.5 ML ASDIR PRN I-DERMAL (CKD) Mannitol (MANNITOL 25% 12.5GM/50ML) 12.5 GM ASDIR PRN IV Sodium Chloride (SODIUM CHLORIDE 0.9%) 2,000 ML ASDIR PRN IV Sodium Chloride (SODIUM CHLORIDE) 10 ML ASDIR PRN IV Sodium Chloride (SODIUM CHLORIDE 0.9%) 250 ML ASDIR PRN IV Physical Exam General appearance: alert, awake, oriented Head/eyes: atraumatic, normocephalic, PERRLA Neck: no JVD, no lymphadenopathy Cardiovascular: normal heart sounds, regular rate and rhythm, no rub Respiratory: decreased breath sounds Abdomen: non-tender, normal bowel sounds, soft, no rebound Genitourinary: no bladder distention, no flank pain, no urinary catheter Extremities: no edema, no gangrene Neuro/CONSOLE ASSEMBLER: alert, oriented X 3, CN II-XII intact, normal speech Results Findings/Data: Laboratory Tests 11/06 [...] PT Patient/Control Mix (9.3 - 12.9 SECONDS) 11.9 Laboratory Tests 11/06 0400 Hematology WBC (4.5 [...] (Auto) (14.0 - 32.0 %) 7.8 L Bergen % (Auto) (4.8 - 9.0 %) 3.9 L Eos % (Auto) (0.3 - 3.7 %) 0.0 L Baso % (Auto) (0.0 - 2.0 %) 0.0 Neut # (Auto) (2.0 - 7.6 x10 3/uL) 2.25 Lymph # (Auto) (1.0 - 3.8 x10 3/uL) 0.20 L Bergen # (Auto) (0.1 - 0.8 x10 3/uL) 0.10 Eos # (Auto) (0.0 - 0.2 x10 3/uL) 0.00 Baso # (Auto) (0.0 - 0.2 x10 3/uL) 0.00 Abs Immat Gran (auto) (0.00 - 0.03 x10 3/uL) 0.01 Add Manual Diff NO Immature Gran % (0.0 - 2.0 %) 0.4 Nucleated RBC % (0 - 0 %) 0.0 Nucleated RBCs # (Man) (0.0 - 0.1 x10 3/uL) 0.00 Radiology data: Recent Impressions: CAT SCAN - [...] by the Society of Thoracic Radiology, the [place] [employer], and RSNA. Published December 13, 2019. 2. Liban PIERCE, et al. Management of Incidental Adrenal Masses: A White Paper of the ACR Incidental Findings Committee. J Am Loren Radiol. 2017;14(8):0435-5115. Impression By: Rivas Richardson M.D. Diagnosis, Assessment Plan Free Text A P: 1. ESRD continue with TTS schedule, HD today with UF as blood pressure tolerates 2. Electrolytes Hypocalcemia HD with 3.5 calcium bath today, hyperphosphatemia started PhosLo 2 caps p.o. 3 times daily with meals 3. Nausea vomiting symptoms improving. CT abdomen and pelvis noted 4. Anemia of CKD start ÁNGEL if hemoglobin remains less than 10 5. COVID-19 pneumonia ID consulted, started on remdesivir and steroid 6. Hypertension start amlodipine 7. DM2 per primary team at 1551 RPT #:[id number] END OF REPORT [facility] 2021-11-06 08:36:00 [facility] ([facility]) Cardiology Progress Note REPORT#:[id number] REPORT STATUS: Signed DATE:11/06/21 TIME: 835 PATIENT: VALENTINE MCNALLY UNIT #: [id number] ROOM/BED: [place] [address] : 53 AGE: 66 SEX: F ATTEND: Ivan Freitas MD ADM AUTHOR: Karyn Oneill NP * ALL edits or amendments must be made on the electronic/computer document * Subjective Chief complaint: Doing good Patient reports: No: chest pain, palpitations, shortness of breath. Nursing reports: No: complaints. Comments: Patient is in room air Objective General VS/I O: 24 hour I O ending at 0700: 11/05 1900 11/06 0700 Intake Total Output Total 1500 Balance -1500 Output, 1500 Hemodialysis Vital Signs: Date Time Temp Pulse Resp B/P B/P Pulse O2 O2 Flow FiO2 Mean Ox Delivery Rate 11/06 1201 [...] Sodium Chloride (SODIUM CHLORIDE 0.9%) 50 ML Q24H IV Remdesivir (REMDESIVIR 100MG LYOPHYLIZED) 100 MG Q24H IV Sodium Chloride (SODIUM CHLORIDE 0.9% 100 ML) 100 ML Amlodipine Besylate (NORVASC) 10 MG DAILY PO Famotidine (PEPCID) 20 MG Q12HR IV (DC) Famotidine (PEPCID) 20 MG Q24H IV Simvastatin (SIMVASTATIN) 10 MG BEDTIME PO Calcium Acetate (CALCIUM ACETATE) 1,334 MG C MEALS PO Hydralazine HCl (APRESOLINE) 10 MG Q4H PRN PRN PO Aspirin (ASPIRIN) 81 MG DAILY PO Furosemide (LASIX) 40 MG DAILY PO Isosorbide Mononitrate (Imdur 30 mg) 60 MG DAILY PO Carvedilol (COREG) 25 MG BID MEALS PO Insulin Human Lispro (HUMALOG) 0 AC HS SUBQ Acetaminophen (TYLENOL) 650 MG Q4H PRN PRN PO Dexamethasone (DECADRON) 6 MG DAILY PO Dextrose/Water (DEXTROSE 50% W SYRINGE) 25 ML ASDIR PRN IV (CKD) Dextrose/Water (DEXTROSE 50% W SYRINGE) 50 ML ASDIR PRN IV (CKD) Glucagon (GLUCAGON) 1 MG ASDIR PRN IM Heparin Sodium (HEPARIN 5000 UNITS/ML) 5,000 UNIT Q8H SUBQ Ondansetron HCl (ZOFRAN) 4 MG Q4H PRN PRN IV Albumin Human (ALBUMINAR-25%) 12.5 GM ASDIR PRN IV Lidocaine HCl (LIDOCAINE HCL/PF) 0.5 ML ASDIR PRN I-DERMAL (CKD) Mannitol (MANNITOL 25% 12.5GM/50ML) 12.5 GM ASDIR PRN IV Sodium Chloride (SODIUM CHLORIDE 0.9%) 2,000 ML ASDIR PRN IV Sodium Chloride (SODIUM CHLORIDE) 10 ML ASDIR PRN IV Sodium Chloride (SODIUM CHLORIDE 0.9%) 250 ML ASDIR PRN IV Physical Exam General appearance: alert, awake, oriented, no acute distress, mental status normal, no respiratory distress [...] extremity: LE assessment: normal temperature, no edema Neuro/CONSOLE ASSEMBLER: normal speech Psychiatry: normal affect Results Findings/Data: [...] PT Patient/Control Mix (9.3 - 12.9 SECONDS) 11.9 Laboratory Tests 11/06 0400 Hematology WBC (4.5 [...] (Auto) (14.0 - 32.0 %) 7.8 L Bergen % (Auto) (4.8 - 9.0 %) 3.9 L Eos % (Auto) (0.3 - 3.7 %) 0.0 L Baso % (Auto) (0.0 - 2.0 %) 0.0 Neut # (Auto) (2.0 - 7.6 x10 3/uL) 2.25 Lymph # (Auto) (1.0 - 3.8 x10 3/uL) 0.20 L Bergen # (Auto) (0.1 - 0.8 x10 3/uL) 0.10 Eos # (Auto) (0.0 - 0.2 x10 3/uL) 0.00 Baso # (Auto) (0.0 - 0.2 x10 3/uL) 0.00 Abs Immat Gran (auto) (0.00 - 0.03 x10 3/uL) 0.01 Add Manual Diff NO Immature Gran % (0.0 - 2.0 %) 0.4 Nucleated RBC % (0 - 0 %) 0.0 Nucleated RBCs # (Man) (0.0 - 0.1 x10 3/uL) 0.00 Results: labs reviewed, vital signs reviewed, vital signs stable, rhythm personally rev'd, current med profile rev'd Telemetry Interpretation: Normal sinus rhythm Diagnosis, Assessment Plan Plan discussed with: nurse Free Text DxA P Notes Free Text DxA P Notes: 66 y/o F w/ PMHx: End-stage renal disease on dialysis, hypertension, diabetic. Pm Head Cook is consulted for elevated troponin. -Elevated troponin, mild. Likely due to end-stage renal disease High sensitive troponin 81. LDL 54.6 Will do nuclear stress test after recover from Covid. Echocardiogram showed EF 50-55% - Hypertension. On nitrate and beta-shamir. - End-stage renal disease. On dialysis. Per Nephro. - COVID-19. Per Pulm On Decadron ID seeing pt. Doing well. at 1532 at 7098 RPT #:[id number] END OF REPORT [facility] 2021-11-05 16:48:00 [id number] [place] [address] PATIENT NAME: VALENTINE MCNALLY ADMIT DATE: 11/04/21 ACCOUNT NO: [id number] ROOM NO: G.C136 AGE: 66 REPORT TYPE: eECHOCARDIOGRAM REPORT SEX: F ADMITTING PHYSICIAN:Ivan Freitas MD ATTENDING PHYSICIAN:Ivan Freitas MD *[place] [address] Transthoracic Echocardiogram Patient: Valentine Mcnally Study Date: 11/05/2021 BP: 175 / 72 Location: [facility] URN: [id number] : 1955 Age: 66 Height: 64 in / 162.6 cm Gender: F Weight: 222.5 lb / 101.2 kg BMI/BSA: 38.3 kg/m 2 / 2.19 m 2 *Ordering Physician: * Daniel Rahman *Interpreting Physician: Henry Weems MD *Hand Embroiderer: * Zaida Paredes Indications: Positive Troponin I. Study data: Transthoracic echocardiogram. Procedure: Transthoracic echocardiography was performed. Image quality was adequate. Complete 2D, complete spectral Doppler, and color Doppler. Location: Bedside. Patient status: Inpatient. Patient room number: C136. Study status: Routine. Rhythm: Normal sinus rhythm. Findings Left ventricle: The cavity size is dilated. Wall thickness is normal. Systolic function is normal. The estimated ejection fraction is 50-55%. Wall motion is normal; there are no regional wall motion abnormalities. Left ventricular diastolic function parameters are indeterminate. Right ventricle: Estimated TAPSE is 2.7 cm. The cavity size is normal. PATIENT NAME: VALENTINE MCNALLY Systolic function is normal. Left atrium: The atrium is normal in size. Right atrium: The atrium is normal in size. Aorta: Aortic root: The aortic root is normal in size. Aortic valve: The valve is structurally normal. The valve is trileaflet. There is no evidence of stenosis. There is trivial regurgitation. Mitral valve: The valve is structurally normal. There is no evidence of stenosis. There is mild regurgitation. Tricuspid valve: The valve is structurally normal. There is no regurgitation. Pulmonic valve: The valve is structurally normal. There is mild regurgitation. Pericardium: There is no pericardial effusion. Pulmonary arteries: The main pulmonary artery is normal-sized. Systemic veins: Inferior vena cava: The vessel is normal in size. The respirophasic diameter changes are in the normal range (= 50%). Measurements Left ventricle Value Ref CONNOR, LAX [...] TDI 17 <=14 PATIENT NAME: VALENTINE MCNALLY LVOT Value Ref Diam, S 1.96 cm [...] 0.84 m/sec --------- PATIENT NAME: VALENTINE MCNALLY VTI leaflet 37.6 cm --------- coapt Decel time 273 ms --------- PHT 63 ms --------- Mean grad, D 3.2 mm Hg --------- Peak grad, D 7.0 mm Hg --------- Peak E/A ratio 0.76 --------- MVA, PHT 3.5 cm 2 --------- Pulmonic valve Value Ref VT peak v 1.4 m/sec --------- VT peak grad 8 mm Hg --------- VT v, ED 0.67 m/sec --------- Tricuspid valve Value Ref TR peak v 1.14 m/sec <=2.8 Peak RV-RA 5 mm Hg --------- grad, S Aortic root Value Ref Root diam, ED 2.67 cm --------- MM Conclusions Summary: 1. Left ventricle: The cavity size is dilated. Wall thickness is normal. Systolic function is normal. The estimated ejection fraction is 50-55%. Wall motion is normal; there are no regional wall motion abnormalities. Left ventricular diastolic function parameters are indeterminate. 2. Aortic valve: There is trivial regurgitation. 3. Mitral valve: There is mild regurgitation. 4. Pulmonic valve: There is mild regurgitation. Prepared and electronically signed by Henry Melara MD 11/05/2021 16:48 at 1648 PATIENT NAME: VALENTINE MCNALLY [facility] 2021-11-05 13:54:00 [facility] ([facility] Infect Disease Consult Note REPORT#:[id number] REPORT STATUS: Signed DATE:11/05/21 TIME: 1354 PATIENT: VALENTINE MCNALLY UNIT #: [id number] ROOM/BED: [address] : 51 AGE: 66 SEX: F ATTEND: Ivan Freitas MD ADM AUTHOR: Odell Hebert MD * ALL edits or amendments must be made on the electronic/computer document * History of Present Illness Requesting Clinician: Dr Freitas Reason for consult: COVID Chief complaint: Shortness of breath HPI: 66-year-old female patient known to have history of end-stage renal disease diabetes hypertension she stated she received a Tobi Tobi vaccine many months ago. Comes into the hospital feeling weak cough short of breath she tested positive for Covid found to be hypoxic x-ray confirmed a pneumonia hence she was admitted. Onset of symptoms was gradual severity was moderate aggravating factors are none relieving factors none associated symptoms cough and shortness of breath and weakness. Symptoms started around 10 days ago. History - Adult longitudinal Past medical history: Reports: Diabetes mellitus, Hypertension, Kidney disease/stones. Additional surgical history: AV graft, shoulder surgery, gallbladder Additional family history: not relavent to current illness Alcohol use: Denies EtOH use Drug use: Denies recreational drugs Smoking status: Smoking status for patients 13 years old or older: Current some day smoker Date last smoked: 11/03/21 Packs per day: 10 Years smoked: 40 Pack years: 400 Medications: Home Medications: Medication Dose/Rte/Freq Days Qty Entered Last Max Daily Dose Reviewed ERGOCALCIFEROL 50,000 UNITS PO Q7D 11/04/21 11/04/21 (VITAMIN D2) 1126 1133 Strength: 50,000 [...] 1133 FUROSEMIDE (LASIX) 40 MG PO DAILY 11/04/21 11/04/21 Strength: 40 MG TAB 1129 1133 [AMLODIPINE/BESYLATE] 11/04/21 11/04/21 Strength: 1131 1133 ASPIRIN 81 MG PO DAILY 11/04/21 11/04/21 Strength: 81 MG TAB.CHEW 1131 1133 SIMVASTATIN (ZOCOR) 10 MG PO DAILY 11/04/21 11/04/21 Strength: 10 MG TAB 1131 1133 PROMETHAZINE 11/04/21 11/04/21 (PHENERGAN) 1132 1133 Strength: 25 MG TAB Current Hospital Medications: Anti-Infective Agents Sig/Kiah Start time Last Medication Dose Route Stop Time Status Admin Remdesivir 100 MG Q24H 11/06 2100 AC (REMDESIVIR 100MG IV 11/09 2158 LYOPHYLIZED) Sodium Chloride 100 ML (SODIUM CHLORIDE 0.9% 100 ML) Remdesivir 200 MG ONCE ONE 11/05 1400 AC (REMDESIVIR 100MG IV 11/05 1459 LYOPHYLIZED) Sodium Chloride 250 ML (SODIUM CHLORIDE 0.9%) Blood Derivatives Sig/Kiah Start time Last Medication Dose Route Stop Time Status Admin Albumin Human 12.5 GM ASDIR PRN 11/04 1929 AC (ALBUMINAR-25%) IV 12/05 1929 Blood Formation,Coagulation Sig/Kiah Start time Last Medication Dose Route Stop Time Status Admin Heparin Sodium 5,000 UNIT Q8H 11/04 2030 AC 11/05 (HEPARIN 5000 UNITS/ SUBQ 12/04 2028 1230 ML) Cardiovascular Drugs Sig/Kiah Start time Last Medication Dose Route Stop Time Status Admin Simvastatin 10 MG BEDTIME 11/05 2100 AC (SIMVASTATIN) PO 12/05 2058 Hydralazine HCl 10 MG Q4H PRN PRN 11/05 1145 AC 11/05 (APRESOLINE) PO 12/05 1144 1255 Isosorbide 60 MG DAILY 11/05 0900 AC 11/05 Mononitrate PO 12/05 0859 0827 (Imdur 30 mg) Carvedilol 25 MG BID MEALS 11/05 0800 AC 11/05 (COREG) PO 12/05 0759 0826 Lidocaine HCl 0.5 ML ASDIR PRN 11/04 193 CKD (LIDOCAINE HCL/PF) I-DERMAL 12/05 1929 Central Nervous System Agents Sig/Kiah Start time Last Medication Dose Route Stop Time Status Admin Aspirin 81 MG DAILY 11/05 0900 AC 11/05 (ASPIRIN) PO 12/05 0859 0827 Acetaminophen 650 MG Q4H PRN PRN 11/04 2030 AC (TYLENOL) PO 12/04 2028 Electrolytic, Caloric, And Jerica Sig/Kiah Start time Last Medication Dose Route Stop Time Status Admin Sodium Chloride 50 ML Q24H 11/06 2199 AC (SODIUM CHLORIDE IV 11/09 2228 0.9%) Sodium Chloride 50 ML ONCE 11/05 1500 AC (SODIUM CHLORIDE IV 11/05 1511 0.9%) Furosemide 40 MG DAILY 11/05 0900 AC 11/05 (LASIX) PO 12/05 0859 0826 Calcium Gluconate/ 100 ML ONCE ONE 11/05 0100 DC 11/05 Sodium Chloride IV 11/05 0119 0052 [...] Chloride 2,000 ML ASDIR PRN 11/04 1929 AC 11/04 (SODIUM CHLORIDE IV 12/05 1929 211 0.9%) Sodium Chloride 10 ML ASDIR PRN 11/04 1929 AC 11/04 (SODIUM CHLORIDE) IV 12/04 1928 211 Sodium Chloride 250 ML ASDIR PRN 11/04 [...] Status Admin Famotidine 20 MG Q12HR 11/05 2099 AC (PEPCID) IV 12/05 2058 Ondansetron HCl 4 MG Q4H PRN PRN 11/04 2029 AC (ZOFRAN) IV 12/04 2028 Hormones And Synthetic Substit Sig/Kiah Start time Last Medication Dose Route Stop Time Status Admin Insulin Human Lispro 0 AC HS 11/04 2100 AC (HUMALOG) SUBQ 12/04 2058 Glucagon 1 [...] awake, oriented Head/Eyes: atraumatic, clear cornea, EOMI, normal conjunctiva/sclera, normal eyelids/periorb, normocephalic, PERRL ENT: normal dentition, normal nose, normal pharynx, normal sinus Neck: full range of motion, non-tender, normal thyroid, supple/no meningismus, no bruit/NL carotids, no JVD, no masses or swelling, no lymphadenopathy Cardiovascular: regular rate rhythm Respiratory: clear to auscultation, no distress Abdomen: non-tender, soft, no distention, no guarding, no mass/organomegaly, no rebound [...] (Auto) (14.0 - 32.0 %) 15.1 18.1 Bergen % (Auto) (4.8 - 9.0 %) 4.0 L 4.6 L Eos % (Auto) (0.3 - 3.7 %) 0.0 L 0.0 L Baso % (Auto) (0.0 - 2.0 %) 0.0 0.2 Neut # (Auto) (2.0 - 7.6 x10 3/uL) 3.57 4.16 Lymph # (Auto) (1.0 - 3.8 x10 3/uL) 0.67 L 0.98 L Bergen # (Auto) (0.1 - 0.8 x10 3/uL) 0.18 0.25 Eos # (Auto) (0.0 - 0.2 x10 3/uL) 0.00 0.00 Baso # (Auto) (0.0 - 0.2 x10 3/uL) 0.00 0.01 Abs Immat Gran (auto) (0.00 - 0.03 x10 3/uL) 0.03 0.01 Add Manual Diff NO NO Immature Gran % (0.0 - 2.0 %) 0.7 0.2 Nucleated RBC % (0 - 0 %) 0.0 0.0 Nucleated RBCs # (Man) (0.0 - 0.1 x10 3/uL) 0.00 0.00 Laboratory Tests 11/04 2039 Serology Hepatitis A IgM Ab (NON REACT. INDEX) NON REACTIVE Hep Bs Antigen (NonReactive INDEX) NON REACTIVE Hep B Core IgM Ab (NON REACT. INDEX) NON REACTIVE Hepatitis C Antibody (NON REACT. INDEX) NON REACTIVE Radiology data: Recent Impressions: ULTRASOUND - DUP VEIN JOSEY 11/05 0234 Report Impression - Status: SIGNED Entered: 11/05/2021 0243 IMPRESSION: No evidence for acute DVT of either lower extremity. Impression By: [email or web address] - Rad Noel M.D. CAT SCAN - CT HEAD/BRAIN W/O CONT 11/05 0351 Report Impression - Status: SIGNED Entered: 11/05/2021 0407 IMPRESSION: 1. Mildly limited examination secondary to motion and scatter artifact. 2. Mild diffuse cerebral atrophy associated with mild old microangiopathic change. 3. No acute intracranial abnormality. 4. Mild chronic sinusitis. Impression By: [email or web address] Karen Jackson M.D. CAT SCAN - CT ABD [...] by the Society of Thoracic Radiology, the [place] [employer], and RSNA. Published December 13, 2019. 2. Liban PIERCE, et al. Management of Incidental Adrenal Masses: A White Paper of the ACR Incidental Findings Committee. J Am Loren Radiol. 2017;14(8):6099-2067. Impression By: Rivas Richardson M.D. Results: labs reviewed, vital signs reviewed, x-ray personally reviewed, current med [...] * Oxygen supplementation to keep her oxygen saturation more than 94% currently she is on 6 L 2. End-stage renal disease on hemodialysis 3. Diabetes mellitus type 2 4. Hypertension at 1357 RPT #:[id number] END OF REPORT [facility] 2021-11-05 13:48:00 [facility] ([facility]) Nephrology Consultation Note REPORT#:[id number] REPORT STATUS: Signed DATE:11/05/21 TIME: 1348 PATIENT: VALENTINE MCNALLY UNIT #: [id number] ROOM/BED: [place] [id number] : 53 AGE: 66 SEX: F ATTEND: Ivan Freitas MD ADM AUTHOR: Marie Salas MD * ALL edits or amendments must be made on the electronic/computer document * History of Present Illness Reason for consult: ESRD HPI: Patient is a 66-year-old female with past medical history of ESRD on hemodialysis Wednesday at [facility] dialysis, hypertension , diabetes type 2 was [...] status for patients 13 years old or older: Current some day smoker Date last smoked: 11/03/21 Packs per day: 10 Years smoked: 40 Pack years: 400 Allergies: Coded Allergies: No Known Allergies (11/04/21) Review of Systems Additional notes: As per HPI Objective General VS/I O: Vital Signs: Date Time Temp Pulse Resp B/P B/P Pulse O2 O2 Flow FiO2 Mean Ox Delivery Rate 11/05 1133 98.1 70 17 184/74 110.8 98 Room air 11/05 0830 Nasal 6 cannula 11/05 0755 98.2 80 16 167/69 101.5 92 Room air 11/05 0407 98.2 75 18 175/72 106.0 97 Nasal 6 97 cannula 11/05 0042 99.0 76 18 138/63 [...] Sodium Chloride (SODIUM CHLORIDE 0.9%) 50 ML Q24H IV Remdesivir (REMDESIVIR 100MG LYOPHYLIZED) 100 MG Q24H IV Sodium Chloride (SODIUM CHLORIDE 0.9% 100 ML) 100 ML Famotidine (PEPCID) 20 MG Q12HR IV Simvastatin (SIMVASTATIN) 10 MG BEDTIME PO Sodium Chloride (SODIUM CHLORIDE 0.9%) 50 ML ONCE IV Remdesivir (REMDESIVIR 100MG LYOPHYLIZED) 200 MG ONCE ONE IV Sodium Chloride (SODIUM CHLORIDE 0.9%) 250 ML Hydralazine HCl (APRESOLINE) 10 MG Q4H PRN PRN PO Aspirin (ASPIRIN) 81 MG DAILY PO Furosemide [...] Dextrose/Water (DEXTROSE 50% W SYRINGE) 25 ML ASDIR PRN IV (CKD) Dextrose/Water (DEXTROSE 50% W SYRINGE) 50 ML ASDIR PRN IV (CKD) Glucagon (GLUCAGON) 1 MG ASDIR PRN IM Heparin Sodium (HEPARIN 5000 UNITS/ML) 5,000 UNIT Q8H SUBQ Ondansetron HCl (ZOFRAN) 4 MG Q4H PRN PRN IV Albumin Human (ALBUMINAR-25%) 12.5 GM ASDIR PRN IV Lidocaine HCl (LIDOCAINE HCL/PF) 0.5 ML ASDIR PRN I-DERMAL (CKD) Mannitol (MANNITOL 25% 12.5GM/50ML) 12.5 GM ASDIR PRN IV Sodium Chloride (SODIUM CHLORIDE 0.9%) 2,000 ML ASDIR PRN IV Sodium Chloride (SODIUM CHLORIDE) 10 ML ASDIR PRN IV Sodium Chloride (SODIUM CHLORIDE 0.9%) 250 ML ASDIR PRN IV Sodium Chloride (SODIUM CHLORIDE) 0 ASDIR PRN IV (DC) Physical Exam General appearance: alert, awake, oriented Head/eyes: atraumatic, normocephalic, PERRLA Neck: no JVD, no lymphadenopathy Cardiovascular: normal heart sounds, regular rate and rhythm, no rub Respiratory: decreased breath sounds Abdomen: non-tender, normal bowel sounds, soft, no rebound Genitourinary: no bladder distention, no flank pain, no urinary catheter Extremities: no edema, no gangrene Neuro/CONSOLE ASSEMBLER: alert, oriented X 3, CN II-XII intact, normal speech Results Findings/Data: Laboratory Tests 11/05 [...] (Auto) (14.0 - 32.0 %) 15.1 18.1 Bergen % (Auto) (4.8 - 9.0 %) 4.0 L 4.6 L Eos % (Auto) (0.3 - 3.7 %) 0.0 L 0.0 L Baso % (Auto) (0.0 - 2.0 %) 0.0 0.2 Neut # (Auto) (2.0 - 7.6 x10 3/uL) 3.57 4.16 Lymph # (Auto) (1.0 - 3.8 x10 3/uL) 0.67 L 0.98 L Bergen # (Auto) (0.1 - 0.8 x10 3/uL) 0.18 0.25 Eos # (Auto) (0.0 - 0.2 x10 3/uL) 0.00 0.00 Baso # (Auto) (0.0 - 0.2 x10 3/uL) 0.00 0.01 Abs Immat Gran (auto) (0.00 - 0.03 x10 3/uL) 0.03 0.01 Add Manual Diff NO NO Immature Gran % (0.0 - 2.0 %) 0.7 0.2 Nucleated RBC % (0 - 0 %) 0.0 0.0 Nucleated RBCs # (Man) (0.0 - 0.1 x10 3/uL) 0.00 0.00 Laboratory Tests 11/04 2039 Serology Hepatitis A IgM Ab (NON REACT. INDEX) NON REACTIVE Hep Bs Antigen (NonReactive INDEX) NON REACTIVE Hep B Core IgM Ab (NON REACT. INDEX) NON REACTIVE Hepatitis C Antibody (NON REACT. INDEX) NON REACTIVE Radiology data: Recent Impressions: ULTRASOUND - DUP VEIN JOSEY 11/05 0234 Report Impression - Status: SIGNED Entered: 11/05/2021 0243 IMPRESSION: No evidence for acute DVT of either lower extremity. Impression By: [email or web address] - Rad Noel M.D. [...] by the Society of Thoracic Radiology, the [place] [employer], and RSNA. Published December 13, 2019. 2. Liban PIERCE, et al. Management of Incidental Adrenal Masses: A White Paper of the ACR Incidental Findings Committee. J Am Loren Radiol. 2017;14(8):7412-8159. Impression By: Rivas Richardson M.D. Diagnosis, Assessment Plan Free Text DxA P Notes Free text DxA P notes: 1. ESRD continue with TTS schedule, will do 3 hours of dialysis today and then again in a.m. to get her back on TTS schedule. 2. Hyperkalemia resolved with dialysis 3. Hypocalcemia HD with 3 calcium, hyperphosphatemia start PhosLo 2 caps p.o. 3 times daily with meals 4. Anemia of CKD start ÁNGEL if hemoglobin remains less than 10 5. COVID-19 pneumonia ID consulted, started on remdesivir and steroid 6. Hypertension controlled 7. DM2 per primary team Thank you for the consult at 1608 RPT #:[id number] END OF REPORT [facility] 2021-11-05 13:07:00 [facility] Hospitalist Progress Note REPORT#:[id number] REPORT STATUS: Signed DATE:11/05/21 TIME: 1307 PATIENT: VALENTINE MCNALLY UNIT #: [id number] ROOM/BED: [place] [address] : 53 AGE: 66 SEX: F ATTEND: Ivan Freitas MD ADM AUTHOR: Heber Rainey DO * ALL edits or amendments must be made on the electronic/computer document * Subjective Comments: Patient seen and examined, having stomach and nausea and vomiting. Denies any new complaints. Discussed case with RN, currently on 4 L via nasal cannula Objective General VS/I O: Vital Signs: Date Time Temp Pulse Resp B/P B/P Pulse O2 O2 Flow FiO2 Mean Ox Delivery Rate 11/05 1133 98.1 70 17 184/74 110.8 98 Room air 11/05 0830 Nasal 6 cannula 11/05 0755 98.2 80 16 167/69 101.5 92 Room air 11/05 0407 98.2 75 18 175/72 106.0 97 Nasal 6 97 cannula 11/05 0042 99.0 76 18 138/63 [...] Sodium Chloride (SODIUM CHLORIDE 0.9%) 50 ML Q24H IV Remdesivir (REMDESIVIR 100MG LYOPHYLIZED) 100 MG Q24H IV Sodium Chloride (SODIUM CHLORIDE 0.9% 100 ML) 100 ML Famotidine (PEPCID) 20 MG Q12HR IV Simvastatin (SIMVASTATIN) 10 MG BEDTIME PO Sodium Chloride (SODIUM CHLORIDE 0.9%) 50 ML ONCE IV Remdesivir (REMDESIVIR 100MG LYOPHYLIZED) 200 MG ONCE ONE IV Sodium Chloride (SODIUM CHLORIDE 0.9%) 250 ML Hydralazine HCl (APRESOLINE) 10 MG Q4H PRN PRN PO Aspirin (ASPIRIN) 81 MG DAILY PO Furosemide [...] Dextrose/Water (DEXTROSE 50% W SYRINGE) 25 ML ASDIR PRN IV (CKD) Dextrose/Water (DEXTROSE 50% W SYRINGE) 50 ML ASDIR PRN IV (CKD) Glucagon (GLUCAGON) 1 MG ASDIR PRN IM Heparin Sodium (HEPARIN 5000 UNITS/ML) 5,000 UNIT Q8H SUBQ Ondansetron HCl (ZOFRAN) 4 MG Q4H PRN PRN IV Albumin Human (ALBUMINAR-25%) 12.5 GM ASDIR PRN IV Lidocaine HCl (LIDOCAINE HCL/PF) 0.5 ML ASDIR PRN I-DERMAL (CKD) Mannitol (MANNITOL 25% 12.5GM/50ML) 12.5 GM ASDIR PRN IV Sodium Chloride (SODIUM CHLORIDE 0.9%) 2,000 ML ASDIR PRN IV Sodium Chloride (SODIUM CHLORIDE) 10 ML ASDIR PRN IV Sodium Chloride (SODIUM CHLORIDE 0.9%) 250 ML ASDIR PRN IV Sodium Chloride (SODIUM CHLORIDE) 0 ASDIR PRN IV (DC) Physical Exam General appearance: alert, awake, oriented Head/Eyes: atraumatic, normocephalic ENT: normal ear left, normal ear right, normal nose Neck: full range of motion, no JVD Cardiovascular: normal heart sounds, regular rate rhythm Respiratory: clear to auscultation, symmetric expansion, no distress Abdomen: non-tender, normal bowel sounds, soft, no distention Extremities: no clubbing, no cyanosis, no edema Neuro/CONSOLE ASSEMBLER: non focal, alert and oriented to herself, doesn't know the name of the hospital [...] (Auto) (14.0 - 32.0 %) 15.1 18.1 Bergen % (Auto) (4.8 - 9.0 %) 4.0 L 4.6 L Eos % (Auto) (0.3 - 3.7 %) 0.0 L 0.0 L Baso % (Auto) (0.0 - 2.0 %) 0.0 0.2 Neut # (Auto) (2.0 - 7.6 x10 3/uL) 3.57 4.16 Lymph # (Auto) (1.0 - 3.8 x10 3/uL) 0.67 L 0.98 L Bergen # (Auto) (0.1 - 0.8 x10 3/uL) 0.18 0.25 Eos # (Auto) (0.0 - 0.2 x10 3/uL) 0.00 0.00 Baso # (Auto) (0.0 - 0.2 x10 3/uL) 0.00 0.01 Abs Immat Gran (auto) (0.00 - 0.03 x10 3/uL) 0.03 0.01 Add Manual Diff NO NO Immature Gran % (0.0 - 2.0 %) 0.7 0.2 Nucleated RBC % (0 - 0 %) 0.0 0.0 Nucleated RBCs # (Man) (0.0 - 0.1 x10 3/uL) 0.00 0.00 Laboratory Tests 11/04 2039 Serology Hepatitis A IgM Ab (NON REACT. INDEX) NON REACTIVE Hep Bs Antigen (NonReactive INDEX) NON REACTIVE Hep B Core IgM Ab (NON REACT. INDEX) NON REACTIVE Hepatitis C Antibody (NON REACT. INDEX) NON REACTIVE Radiology data: Recent Impressions: ULTRASOUND - DUP VEIN JOSEY 11/05 0234 Report Impression - Status: SIGNED Entered: 11/05/2021 0243 IMPRESSION: No evidence for acute DVT of either lower extremity. Impression By: Wiley Noel M.D. CAT SCAN - CT HEAD/BRAIN W/O CONT 11/05 0351 Report Impression - Status: SIGNED Entered: 11/05/2021 0407 IMPRESSION: 1. Mildly limited examination secondary to motion and scatter artifact. 2. Mild diffuse cerebral atrophy associated with mild old microangiopathic change. 3. No acute intracranial abnormality. 4. Mild chronic sinusitis. Impression By: Casie - Donald Jackson M.D. Diagnosis, Assessment Plan [...] sister states pt IS VACCINATED with j/j vaccine x2. Hyperkalemia * HD now, nephrology following Hypoxia * abnormal CXR * pulmonary to see.h/o smoking. Elevated troponin I level * echo/cards following HTN (hypertension) * restart BP meds, patient lost IV access and as needed antihypertensive started * BP also likely improved post hemodialysis Diabetes * Continue SSI. Metabolic encephalopathy * CT head/PT/OT eval. probably multifactorial from all above. Pt sister was concerned about a UTI. (pt makes urine). Follow-up UA and culture. Nausea and vomiting * Denies any abdominal pain currently, check CT of the abdomen pelvis * Gastroenterology evaluation End-stage renal disease * HD TTS per nephrology, plan for HD today DVT prophylaxis: Heparin subcutaneous Quality: Gen Med Crit Care VTE Prophylaxis VTE prophylaxis initiated: yes Current Medications Current medication review: I attest that the foregoing medication list in the medical record is true, accurate, and complete to the best of my knowledge. Advanced Care Plan 65 or Older Discussed with: surrogate fela. maker Discussion included: living will at [address] [facility] #:[id number] END OF REPORT [facility] 2021-11-05 12:38:00 [id number] [address] PATIENT NAME: VALENTINE MCNALLY ADMIT DATE: 11/04/21 ACCOUNT NO: [id number] ROOM NO: [facility] AGE: 66 REPORT TYPE: CONSULTATION REPORT SEX: F ADMITTING PHYSICIAN:Ivan Freitas MD ATTENDING PHYSICIAN:Ivan Freitas MD CONSULTATION DATE: 11/05/2021 CONSULTING PHYSICIAN: Heber Dunbar MD GASTROENTEROLOGY CONSULTATION REASON FOR CONSULTATION: Nausea and vomiting. HISTORY OF PRESENT ILLNESS: The patient is a 66-year-old -[place] female with multiple medical problems including end-stage renal disease, on hemodialysis related to hypertensive nephrosclerosis and diabetic nephropathy, coronary artery disease, chronic tobacco use, who was admitted to [facility] after presenting to [place] [facility] with a 2 to 3-day history of weakness, fatigue associated with falls from standing position, as well as shortness of breath, fevers, and chills. Testing revealed that the patient was positive for COVID-19. A chest x-ray revealed bilateral infiltrates. The patient was subsequently transferred as mentioned above. The patient ate at [facility] this morning and developed some nausea and vomiting of that food. Currently, she is not experiencing any nausea or vomiting. She has been [...] Noncontributory. SOCIAL HISTORY: The patient lives in [place]. She has a [id number] history of tobacco. Denies alcohol or illicit drug use. REVIEW OF SYSTEMS: As per HPI. PHYSICAL EXAMINATION: PATIENT NAME: VALENTINE MCNALLY VITAL SIGNS: Pulse 70, blood pressure 184/74; respirations 17; temperature 36.7, T-max 37.2. GENERAL: The patient is alert and oriented x3, in no apparent distress, well nourished. HEENT: Normocephalic and atraumatic. Anicteric sclerae. NECK: Supple. No masses. CARDIOVASCULAR: Regular rate and rhythm. No gross murmurs. LUNGS: Show coarse breath sounds in anterolateral chavez. ABDOMEN: Soft, obese, nontender, and nondistended. No guarding. No rebound. No masses. Normal bowel sounds throughout. EXTREMITIES: Show trace pedal edema. LABORATORY DATA: White blood count is 4.5, hemoglobin 9.9, hematocrit 31.2, MCV 94.3, RDW 15.5, platelets 124. D-dimer 2100. Sodium 142, potassium 3.8, chloride 107, bicarbonate 19, BUN 61, creatinine 9.3, and glucose 65, calcium 6.1, phosphorus 6.3. Total bilirubin 0.5, alkaline phosphatase is 74, AST 39, ALT 17, albumin 2.6. Urinalysis is pending. Acute viral hepatitis panel is negative. ASSESSMENT: Nausea and vomiting, which is likely multifactorial including acute COVID infection, uremia, and polypharmacy for her acute infection. PLAN: I recommend symptomatic treatment including initiation of ondansetron 4 mg IV q. 8 hours as needed for nausea, place the patient on a clear liquid diet for now and advance as tolerated. I would expect that the patient's symptoms will improve as her COVID infection improves. No further testing is warranted at this time. Dictated By: Heber Dunbar MD WT: CON:TIMOTHY/STEVEN/GEORGE Conf#: [id number]/DID#: [id number] Authenticated by Heber Dunbar MD On 11/17/2021 12:33:42 PM at 1233 PATIENT NAME: VALENTINE MCNALLY [facility] 2021-11-05 12:23:00 [facility] ([facility]) Pulmonary Consultation Note REPORT#:[id number] REPORT STATUS: Signed DATE:11/05/21 TIME: 1223 PATIENT: VALENTINE MCNALLY UNIT #: [id number] ROOM/BED: [place] [address] : 53 AGE: 66 SEX: F ATTEND: Ivan Freitas MD ADM AUTHOR: Shanika Vasquez MD * ALL edits or amendments must be made on the electronic/computer document * History of Present Illness HPI Requesting clinician: Dr Freitas Reason for consult: covid Chief complaint: COVID HPI: Ms Mcnally is a 66 y/o woman with hx of ESRD on HD, DM, HTN and CAD who was recently missed 2 HD session and has been feeling unwell for the past 4 days. She came to ER due to weakness. She was found to be COVID positive with CXR showing COVID 19 PNA, started on steroids. Unclear of vaccination status, per notes she has had the J/J vaccine. History - Adult longitudinal Past medical history: Reports: Diabetes mellitus, Hypertension, Kidney disease/stones. Additional surgical history: AV graft, shoulder surgery, gallbladder Additional family history: not relavent to current illness Alcohol use: Denies EtOH use Drug use: Denies recreational drugs Smoking status: Smoking status for patients 13 years old or older: Current some day smoker Date last smoked: 11/03/21 Packs per day: 10 Years smoked: 40 Pack years: 400 Allergies: Coded Allergies: No Known Allergies (11/04/21) Review of Systems Constitutional: Reports: generalized weakness. Denies: lethargy. Respiratory: Denies: PAN (dyspnea on exertion), hemoptysis, pleuritic pain, productive cough (sputum), SOB, [...] 11/05 0407 General appearance: alert, awake, no acute distress, pleasant, conversational, no respiratory distress Head/eyes: atraumatic, normocephalic, PERRL Neck: full range of motion, non-tender Respiratory/chest: on oxygen, aerating well, clear to auscultation, symmetric expansion, no distress, no tenderness Abdomen: soft, non-tender, no CVA tenderness, no distention Extremities: no cyanosis, no edema Musculoskeletal: no muscle spasm Neuro/CONSOLE ASSEMBLER: alert Results Findings/Data: Laboratory Tests 11/05/21424: [Embedded [...] (<10.0 mg/L) 125.0 H Laboratory Tests 11/04 2045 Coagulation D-Dimer (<=500 ng/mlFEU) 2100 *H Laboratory [...] (Auto) (14.0 - 32.0 %) 15.1 18.1 Bergen % (Auto) (4.8 - 9.0 %) 4.0 L 4.6 L Eos % (Auto) (0.3 - 3.7 %) 0.0 L 0.0 L Baso % (Auto) (0.0 - 2.0 %) 0.0 0.2 Neut # (Auto) (2.0 - 7.6 x10 3/uL) 3.57 4.16 Lymph # (Auto) (1.0 - 3.8 x10 3/uL) 0.67 L 0.98 L Bergen # (Auto) (0.1 - 0.8 x10 3/uL) 0.18 0.25 Eos # (Auto) (0.0 - 0.2 x10 3/uL) 0.00 0.00 Baso # (Auto) (0.0 - 0.2 x10 3/uL) 0.00 0.01 Abs Immat Gran (auto) (0.00 - 0.03 x10 3/uL) 0.03 0.01 Add Manual Diff NO NO Immature Gran % (0.0 - 2.0 %) 0.7 0.2 Nucleated RBC % (0 - 0 %) 0.0 0.0 Nucleated RBCs # (Man) (0.0 - 0.1 x10 3/uL) 0.00 0.00 Laboratory Tests 11/04 2039 Serology Hepatitis A IgM Ab (NON REACT. INDEX) NON REACTIVE Hep Bs Antigen (NonReactive INDEX) NON REACTIVE Hep B Core IgM Ab (NON REACT. INDEX) NON REACTIVE Hepatitis C Antibody (NON REACT. INDEX) NON REACTIVE Radiology Data: Recent Impressions: ULTRASOUND - DUP VEIN JOSEY 11/05 0234 Report Impression - Status: SIGNED Entered: 11/05/2021 0243 IMPRESSION: No evidence for acute DVT of either lower extremity. Impression By: [email or web address] - Rad Noel M.D. [...] - Donald Jackson M.D. Diagnosis, Assessment Plan Free Text DxA P Notes Free Text DxA P Notes: Impressions: Acute hypoxemic respiratory failur COVID 19 infecction ESRD on HD DM CAD Recommendations: CXR reviewed extensive bilateral pulmonary opacities wit superimposed edema On oxygen support now at 4 L C/w decadron Add remdesevir she is with in the window Add IS C/w bronchodilators ESRD on HD per renal DVT ppx Full Code at 1240 RPT #:[id number] END OF REPORT [facility] 2021-11-05 11:48:00 [facility] [facility]) Clinical Note REPORT#:[id number] REPORT STATUS: Signed DATE:11/05/21 TIME: 1148 PATIENT: VALENTINE MCNALLY UNIT #: [id number] ROOM/BED: [place] [address] : 53 AGE: 66 SEX: F ATTEND: Ivan Freitas MD ADM AUTHOR: Odell Hebert MD * ALL edits or amendments must be made on the electronic/computer document * Clinical Note Note: pt seen,examined, note to follow at 0623 RPT #:[id number] END OF REPORT [facility] 2021-11-05 08:38:00 [facility] ([facility]) Cardiology Progress Note REPORT#:[id number] REPORT STATUS: Signed DATE:11/05/21 TIME: 0838 PATIENT: VALENTINE MCNALLY UNIT #: [id number] ROOM/BED: [place] [address] : 53 AGE: 66 SEX: F ATTEND: Ivan Freitas MD ADM AUTHOR: Karyn Oneill NP * ALL edits or amendments must be made on the electronic/computer document * Subjective Chief complaint: Doing okay Patient reports: No: chest pain, shortness of breath. Nursing reports: No: complaints. Comments: Patient is awake alert oriented to person and place, not situation. She is on 5 L nasal cannula, wet cough. RN reports patient confused last night, pulled out IV, vomiting this morning. Objective General VS/I O: 24 hour I O ending at 0700: 11/04 1900 11/05 0700 Intake Total Output Total 3000 Balance -3000 Output, 3000 Hemodialysis Patient 101.5 kg Weight Weight Bed scale Measurement Method Vital Signs: Date Time Temp Pulse Resp B/P B/P Pulse O2 O2 Flow FiO2 Mean Ox Delivery Rate 11/05 1133 98.1 70 17 184/74 110.8 98 Room air 11/05 0830 Nasal 6 cannula 11/05 0755 98.2 80 16 167/69 101.5 92 Room air 11/05 0407 98.2 75 18 175/72 106.0 97 Nasal 6 97 cannula 11/05 0042 99.0 76 18 138/63 [...] Sodium Chloride (SODIUM CHLORIDE 0.9%) 50 ML Q24H IV Remdesivir (REMDESIVIR 100MG LYOPHYLIZED) 100 MG Q24H IV (UNV) Sodium Chloride (SODIUM CHLORIDE 0.9% 100 ML) 100 ML Famotidine (PEPCID) 20 MG Q12HR IV Simvastatin (SIMVASTATIN) 10 MG BEDTIME PO Sodium Chloride (SODIUM CHLORIDE 0.9%) 50 ML ONCE IV Remdesivir (REMDESIVIR 100MG LYOPHYLIZED) 200 MG ONCE ONE IV (PEND) Sodium Chloride (SODIUM CHLORIDE 0.9%) 250 ML Hydralazine HCl (APRESOLINE) 10 MG Q4H PRN PRN PO Aspirin (ASPIRIN) 81 MG DAILY PO Furosemide [...] Dextrose/Water (DEXTROSE 50% W SYRINGE) 25 ML ASDIR PRN IV (CKD) Dextrose/Water (DEXTROSE 50% W SYRINGE) 50 ML ASDIR PRN IV (CKD) Glucagon (GLUCAGON) 1 MG ASDIR PRN IM Heparin Sodium (HEPARIN 5000 UNITS/ML) 5,000 UNIT Q8H SUBQ Ondansetron HCl (ZOFRAN) 4 MG Q4H PRN PRN IV Albumin Human (ALBUMINAR-25%) 12.5 GM ASDIR PRN IV Lidocaine HCl (LIDOCAINE HCL/PF) 0.5 ML ASDIR PRN I-DERMAL (CKD) Mannitol (MANNITOL 25% 12.5GM/50ML) 12.5 GM ASDIR PRN IV Sodium Chloride (SODIUM CHLORIDE 0.9%) 2,000 ML ASDIR PRN IV Sodium Chloride (SODIUM CHLORIDE) 10 ML ASDIR PRN IV Sodium Chloride (SODIUM CHLORIDE 0.9%) 250 ML ASDIR PRN IV Sodium Chloride (SODIUM CHLORIDE) 0 ASDIR PRN IV (DC) Physical Exam General appearance: alert, awake, no acute distress, no respiratory distress Head/Eyes: atraumatic, clear cornea, PERRLA ENT: moist mucosal membranes Neck: full range of motion, non-tender, no JVD Cardiovascular: CV assessment: no murmur Respiratory: decreased breath sounds, on oxygen (5L), no distress Abdomen: soft, non-tender, normal bowel sounds Genitourinary: no giraldo Upper extremity: UE assessment: normal capillary refill, normal temperature, no edema Lower extremity: LE assessment: normal temperature, no edema Neuro/CONSOLE ASSEMBLER: normal speech Results Findings/Data: Laboratory Tests 11/045 2045 2045 0039 0425 Chemistry Sodium (134 - 147 mEq/L) [...] (3.4 - 5.0 g/dL) 2.60 L 11/05 0914 1127 Chemistry POC Glucose (70 - [...] (Auto) (14.0 - 32.0 %) 18.1 15.1 Bergen % (Auto) (4.8 - 9.0 %) 4.6 L 4.0 L Eos % (Auto) (0.3 - 3.7 %) 0.0 L 0.0 L Baso % (Auto) (0.0 - 2.0 %) 0.2 0.0 Neut # (Auto) (2.0 - 7.6 x10 3/uL) 4.16 3.57 Lymph # (Auto) (1.0 - 3.8 x10 3/uL) 0.98 L 0.67 L Bergen # (Auto) (0.1 - 0.8 x10 3/uL) 0.25 0.18 Eos # (Auto) (0.0 - 0.2 x10 3/uL) 0.00 0.00 Baso # (Auto) (0.0 - 0.2 x10 3/uL) 0.01 0.00 Abs Immat Gran (auto) (0.00 - 0.03 x10 3/uL) 0.01 0.03 Add Manual Diff NO NO Immature Gran % (0.0 - 2.0 %) 0.2 0.7 Nucleated RBC % (0 - 0 %) 0.0 0.0 Nucleated RBCs # (Man) (0.0 - 0.1 x10 3/uL) 0.00 0.00 Laboratory Tests 11/04 2039 Serology Hepatitis A IgM Ab (NON REACT. INDEX) NON REACTIVE Hep Bs Antigen (NonReactive INDEX) NON REACTIVE Hep B Core IgM Ab (NON REACT. INDEX) NON REACTIVE Hepatitis C Antibody (NON REACT. INDEX) NON REACTIVE Radiology data: Recent Impressions: ULTRASOUND - DUP VEIN JOSEY 11/05 0234 Report Impression - Status: SIGNED Entered: 11/05/2021 0243 IMPRESSION: No evidence for acute DVT of either lower extremity. Impression By: [email or web address] - Rad Noel M.D. [...] M.D. Results: labs reviewed, vital signs reviewed, vital signs stable, current med profile rev'd Diagnosis, Assessment Plan Plan discussed with: patient, nurse Free Text DxA P Notes Free Text DxA P Notes: 66 y/o F w/ PMHx: End-stage renal disease on dialysis, hypertension, diabetic. Pm Head Cook is consulted for elevated troponin. -Elevated troponin, mild. High sensitive troponin 81. LDL 54.6 Will do nuclear stress test after recover from Covid. Echocardiogram result pending. - Hypertension. On nitrate and beta-shamir. - End-stage renal disease. On dialysis. - COVID-19. On Decadron ID seeing pt. at 1255 at 1252 RPT #:[id number] END OF REPORT [facility] 2021-11-04 20:59:00 [id number] [place] [address] PATIENT NAME: VALENTINE MCNALLY ADMIT DATE: 11/04/21 ACCOUNT NO: [id number] ROOM NO: [facility] AGE: 66 REPORT TYPE: CONSULTATION REPORT SEX: F ADMITTING PHYSICIAN:Ivan Freitas MD ATTENDING PHYSICIAN:Ivan Freitas MD CONSULTATION DATE: CONSULTING PHYSICIAN: Hnery Melara MD CARDIOLOGY CONSULTATION REQUESTING PHYSICIAN: Dr. Leon. HISTORY OF PRESENT ILLNESS: Ms. Mcnally is a 66-year-old pleasant lady with a history of end-stage renal disease, on dialysis and did not have dialysis 2 days ago, history of diabetes mellitus and hypertension, who was consulted for positive troponin. The patient was evaluated with worsening shortness of breath and generalized fatigue, did not get her dialysis on Wednesday and was brought by sister because not feeling well, could not be lifted up from room and hence EMS was called. PAST MEDICAL HISTORY: Otherwise as above. SOCIAL HISTORY: She is a chronic smoker. FAMILY HISTORY: Not available. MEDICATIONS: As charted. PHYSICAL EXAMINATION: VITAL SIGNS: Blood pressure 142/64; heart rate 64 beats per minute, regular; respiratory rate is 18; and temperature 98.5. HEENT EXAMINATION: No jugular venous distention. CHEST: Decreased breath in all lung chavez. CARDIOVASCULAR: Apical impulse not palpable. S1 and S2 soft. ABDOMEN: Benign. EXTREMITIES: Showed trace edema. DIAGNOSTIC STUDIES: EKG shows normal sinus, no ST-T changes. SIGNIFICANT LABORATORY TESTS: Troponin 0.09. IMPRESSION: 1. Elevated troponin: Due to renal failure and this is not from non-ST elevation myocardial infarction. 2. End-stage renal disease, noncompliant with dialysis. 3. Hypertension, well-controlled. PATIENT NAME: VALENTINE MCNALLY RECOMMENDATIONS: 1. We will do an echocardiogram. 2. Since the patient's COVID positive, we would wait for her to be negative and then do a nuclear stress test if possible. 3. Otherwise, agree with current management. Dictated By: Henry Melara MD WT: CON:TIMOTHY/MALINA/GEORGE Conf#: [id number]/DID#: [id number] Authenticated by Henry Melara MD On 11/05/2021 05:00:30 PM at 0500 PATIENT NAME: VALENTINE MCNALLY [facility] 2021[facility]04 20:23:00 [facility] REPORT#:[id number] REPORT STATUS: Signed DATE:11/04/21 TIME: 2022 PATIENT: VALENTINE MCNALLY UNIT #: [id number] ROOM/BED: [place] [address] : 53 AGE: 66 SEX: F ATTEND: Ivan Freitas MD ADM AUTHOR: Daniel Rahman MD * ALL edits or amendments must be made on the electronic/computer document * History of Present Illness HPI Chief complaint: COVID PCP: PCP: No Primary or Family Physician HPI: 66 y/o with ESRD/HTN/DM/heart disease and tobaccos abuse who was not feeling well starting on Wednesday (4 days prior to admission). (history is from the pt's sister...pt is a VERY POOR HISTORIAN). Then on Wednesday and Wednesday, the patient continued to deteriorate [...] status for patients 13 years old or older: Current some day smoker Date last smoked: 11/03/21 Packs per day: 10 Years smoked: 40 Pack years: 400 Medication/Allergy-Vaccine Hx Medications: Home Medications: ERGOCALCIFEROL (VITAMIN D2) 50,000 UNITS PO Q7D ISOSORBIDE MONONITRATE SR (IMDUR) 60 MG PO DAILY ACETAMINOPHEN/CODEINE (TYLENOL WITH CODEINE 300-30 MG/12.5ML) CARVEDILOL (COREG) 25 MG PO BID [...] Ox FiO2 11/04 98.0-98.3 64-78 18-26 119-165/63-79 87-105 93-98 Last Documented: Result Date Time Pulse Ox 96 11/04 175 B/P 142/64 11/04 1755 B/P Mean 90 11/04 175 O2 Delivery Nasal cannula 11/04 1754 O2 Flow Rate 3 11/04 1754 Temp 98.0 11/04 1755 Pulse 64 11/04 1755 Resp 18 11/04 1755 Patient Weight and BMI Weight (kg): 101.500 BMI: 38.4 General appearance: awake Head/Eyes: atraumatic, normocephalic ENT: normal ear left, normal ear right, normal nose Neck: full range of motion, no JVD Cardiovascular: normal heart sounds, regular rate rhythm Respiratory: clear to auscultation, symmetric expansion, no distress Abdomen: non-tender, normal bowel sounds, soft, no distention Extremities: no clubbing, no cyanosis, no edema Neuro/CONSOLE ASSEMBLER: non focal, alert and oriented to herself, doesn't know the name of the hospital Skin: dry, no rash Results Radiology data: Current Medications Sig/Kiah Start time Last Medication Dose Route Stop Time Status Admin Simvastatin 10 MG BEDTIME 11/05 2099 AC PO 12/05 2058 Aspirin 81 MG DAILY 11/05 899 AC PO 12/05 858 Furosemide 40 MG DAILY 11/05 899 AC PO 12/05 08 Isosorbide 60 MG DAILY 11/05 899 AC Mononitrate PO 12/05 08 Carvedilol 25 MG BID MEALS 11/05 08 AC PO 12/05 075 Insulin Human Lispro 0 AC HS 11/04 2099 AC SUBQ 12/04 2058 Acetaminophen 650 MG [...] Albumin Human 12.5 GM ASDIR PRN 11/04 1929 AC IV 12/05 1929 Lidocaine HCl 0.5 ML ASDIR PRN 11/04 1929 CKD I-DERMAL 12/05 1929 Mannitol 12.5 GM ASDIR PRN 11/04 1929 AC IV 12/05 1929 Sodium Chloride 2,000 ML ASDIR PRN 11/04 1929 AC IV 12/05 1929 Sodium Chloride 10 ML ASDIR PRN 11/04 1929 AC IV 12/04 1928 Sodium Chloride 250 ML ASDIR PRN 11/04 193 AC IV 12/04 1928 Sodium Chloride 0 ASDIR PRN 11/04 1015 AC IV 11/05 0913 Laboratory Tests: 11/04 11/04 11/04 1103 1103 1046 Chemistry Rapid Troponin I (0.00 - 0.08 ng/mL) 0.09 *H Rap B-Natriuretic Pept (0.0 - 100.0 pg/mL) 1950.0 H Serology SARS CoV-2 RNA Rapid JUNITO [...] 1054 IMPRESSION: 1. Patchy bilateral pulmonary opacities. Differential considerations include edema and multifocal pneumonia. Impression By: [email or web address] - Alisa Moreno M.D. Diagnosis, Assessment Plan Problem List/A P: 1. COVID 2. Hyperkalemia 3. Hypoxia 4. Elevated troponin I level 5. HTN (hypertension) 6. Diabetes 7. Metabolic encephalopathy Free Text A P: 66 y/o with tobacco abuse, ESRD, HTN, DM, heart disease who presents with AMS and COVID+ with hypoxia. 1. COVID - pulmonary/ID to see. start steroids. on DVT prophylaxis. check acute phase reactants. Pt sister states pt IS VACCINATED with j/j vaccine x2. 2. Hyperkalemia - HD now, renal seeing. 3. Hypoxia - abnormal CXR, pulmonary to see.h/o smoking. 4. Elevated troponin I level - echo/cards to see. 5. HTN (hypertension) - restart BP meds 6. Diabetes - check a1c, SSI. 7. Metabolic encephalopathy - CT head/PT/OT eval. probably multifactorial from all above. Pt sister was concerned about a UTI. (pt makes urine). check UA and culture. Quality: Gen Med Crit Care VTE Prophylaxis VTE prophylaxis initiated: yes Current Medications Current medication review: I attest that the foregoing medication list in the medical record is true, accurate, and complete to the best of my knowledge. Advanced Care Plan 65 or Older Discussed with: surrogate [email or web address]. maker Discussion included: living will at 2034 RPT #:[id number] END OF REPORT [facility] 2021-11-04 13:04:00 [facility] ([facility]) EMERGENCY PROVIDER REPORT REPORT#:[id number] REPORT STATUS: Signed DATE:11/04/21 TIME: 1304 PATIENT: VALENTINE MCNALLY UNIT #: [id number] ROOM/BED: [place] [address] AGE: 66 SEX: F PCP PHYS: No Primary or Family Physician SERVICE AUTHOR: Anthony Leon MD * ALL edits or amendments must be made on the electronic/computer document * HPI-Dyspnea/Wheezing Free Text HPI Notes Free Text HPI Notes 66-year-old female with a past medical history of diabetes, hypertension and chronic kidney disease presents to the emergency department for evaluation of shortness of breath and generalized fatigue. Patient states the onset of the symptoms was several days ago and has progressively gotten worse. Patient states she missed her dialysis on Wednesday and today because she was not feeling well. Patient denies any nausea or vomiting but states she has had shortness of breath, cough, congestion has been going on. Patient denies any other associated symptoms at this [...] pain/vomiting, : No dysuria/frequency, HEM: No bleeding/bruising, NEURO: No change MS, NEURO: No focal deficit, PSYCH: NL thought content Focused Review of Systems Constitutional Denies: Chills, Fever, Lethargy. Ears/Nose/Throat Reports: Nasal congestion. Denies: Ear drainage bilat, Ear ringing bilat, Earache bilat. Respiratory Reports: Cough, non-productive, Shortness of breath. Cardiovascular Denies: Chest pain, Syncope. Musculoskeletal Denies: Back pain, Extremity pain. Skin Denies: Diaphoresis, Rash. Allergy/Immun Denies: Hives, Itching. Past Medical History - Adult Stated Complaint COUGH, CONGESTION, FEVER Allergies Coded Allergies: No Known Allergies (11/04/21) Home Medications Reported Medications ERGOCALCIFEROL (VITAMIN D2) 50,000 UNITS PO Q7D ISOSORBIDE MONONITRATE SR (IMDUR) 60 MG PO DAILY ACETAMINOPHEN/CODEINE (TYLENOL WITH CODEINE 300-30 MG/12.5ML) CARVEDILOL (COREG) 25 MG PO BID MEALS FUROSEMIDE (LASIX) 40 MG PO DAILY [AMLODIPINE/BESYLATE] ASPIRIN 81 MG PO DAILY SIMVASTATIN (ZOCOR) 10 MG PO DAILY PROMETHAZINE (PHENERGAN) Calculated Suicide Risk (nurs) No risk Past Medical History: Reports: Diabetes mellitus, Hypertension, Kidney disease/stones. Smoking status: Smoking status for patients 13 years old or older: Current some day smoker Date last smoked: [...] Reviewed Basic Physical Exam Basic PE HEAD: Atraumatic/NC, EYES: PERRL, conj clear, ENT: Membranes moist, ABD : Soft/non-tender, EXT: No gross abnormality, SKIN: No rashes, warm/dry, NEURO: alert oriented, NEURO: gross movement NL, PSYCH: NL thought content Focused PE General/Const General/Const Awake, Alert Ears/Nose/Throat Ears/Nose/Throat Airway patent, Mucous membranes moist, Pharynx NL MS Neck Neck Atraumatic, Supple, No meningismus, Full range of motion, No swelling, Non-tender, No masses Resp/Chest Respiratory/Chest Breath sounds NL, Breath sounds = bilat, No respiratory distress, No rales, No rhonchi, No wheezing, No retractions, No stridor Cardiovascular Cardiovascular Heart rate NL, Regular rhythm, Heart sounds NL, Peripheral circulation NL Abdomen/GI Abdomen/GI Soft, Non-tender, No guarding, No rebound MS Back Back Inspection NL, Non-tender, No CVA tenderness MS Lower Extrem Lower Ext/Pelvis/MS Inspection NL, No swelling, Non-tender, No erythema, No deformity, Neurologic intact, No edema Skin Skin Color NL, No rash, Warm, Dry, Turgor NL Neurologic Neurologic Oriented X3, Speech NL, No motor deficits, No sensory deficits Interpretation Diagnostics Lab Results Interpretation Results Laboratory Tests: 11/04 11/04 11/04 1103 1103 1046 Chemistry Rapid Troponin I (0.00 - 0.08 ng/mL) 0.09 *H Rap B-Natriuretic Pept (0.0 - 100.0 pg/mL) 1950.0 H Serology SARS CoV-2 RNA Rapid JUNITO [...] 1054 IMPRESSION: 1. Patchy bilateral pulmonary opacities. Differential considerations include edema and multifocal pneumonia. Impression By: [email or web address] - Alisa Moreno M.D. ECG #1 Interpretation ECG Documented in MUSE Yes Date 11/04/21 Time 1021 Interpreted by ED physician NL ECG Interpretation No STEMI Rate 75 Conduction/Opp RBBB - complete Re-Evaluation MDM ED Course Medication(s) Ordered Medication(s) Ordered: Electrolytic, Caloric, And Jerica Sig/Kiah Start time Last Medication Dose Route Stop Time Status Admin Sodium Chloride 0 ASDIR PRN 11/04 1015 AC IV 11/05 0913 Consultation Consultation Referral/Consult Name Valeriy Christiansen MD [employer] Called Nephrology Requested Call Time 1306 Requested Call Date 11/04/21 Call Returned Call returned Call Returned Time 1434 Call Returned Date 11/04/21 Jewelry Bench Molder Will see patient Free Text Consult Notes Dr Robles levy was covering for him will see pt when they arrive to [place] Patient Discharge Departure Vital Signs/Condition Vital Signs [...] signs available at the time of this entry have been reviewed. Clinical Impression Clinical Impression Primary Impression: COVID Secondary Impressions: Hyperkalemia, Hypoxia Disposition Decision Admit Admit Physician Name Ivan Freitas MD Admit Physician Hospitalist Request Time 1307 Request Date 11/04/21 )( Admission Accepts Yes )( Accepted Time 1307 )( Accepted Date 11/04/21 Call Information will see patient, agrees with eval, agrees with plan Discharge/Care Plan Counseled Regarding Diagnosis, Lab results, Imaging studies, Need for admission, When to return to ED Admit Note I have spoken with the patient and/or caregivers. I have explained the patient's condition, diagnoses and treatment plan based on the information available to me at this time. I have answered the patient's and/or caregiver's questions and addressed any concerns. The patient and/or caregivers have as good an understanding of the patient's diagnosis, condition and treatment plan as can be expected at this point. The patient has been stabilized within the capability of the emergency department. The patient will be transported for further care and management or will be moved to an observation or inpatient service. I have communicated with the staff or medical practitioner taking over this patient's care. at 1822 RPT #:[id number] END OF REPORT [facility]
--- NOTE | 2024-12-01 20:01 | RAD REPORT ---
EXAMINATION: ONE VIEW CHEST XR CLINICAL INDICATION: Female, 69 years old.,ams TECHNIQUE: Frontal chest projection is submitted. Examination is limited by patient positioning and t echnique. COMPARISON: 07/19/2022 FINDINGS: Progressive central interstitial prominence. Right basilar opacity and suggestion of small effusion No pneumothorax or left effusion. The heart is again moderately enlarged. Right axillary/brachial vascular stent in place. Mediastinal contours are unremarkable. IMPRESSION: Findings suggesting congestive heart failure or edema, with right pleural effusion.
[2024-12-01 21:52] LABS: Absolute Basophils 0.1 K/uL (0-0.5); Absolute Eosinophils 0.1 K/uL (0-0.5); Absolute Lymphocytes (CBC) 1.4 K/uL (0.7-4.9); Absolute Monocytes 0.8 K/uL (0.1-1.3); Absolute Neutrophil 12.6 K/uL (1.8-8.0); Basophils % 0.8 % (0-1.3); Eosinophils % 0.4 % (0-4.4); Hemoglobin 10.3 g/dL (12.0-15.0); Lymphocytes % 9.3 % (15.3-44.8); MCHC 33.2 g/dL (32.0-36.0); MCV 96.4 fL (80-100); MPV 9.4 fL (7.6-11.3); Monocytes % 5.6 % (3.3-12.3); Neutrophils % 83.9 % (41.7-73.7); Platelets 175 thou/uL (152-406); RBC Red Blood Cell Count 3.21 M/uL (3.86-4.86)
--- NOTE | 2024-12-01 22:38 | RAD REPORT ---
EXAM: CT Head Brain Wo Cont HISTORY: MENTAL STATUS CHANGE COMPARISON: 02/23/2013 TECHNIQUE: Multiple contiguous axial images were obtained for a CT of the brain without contrast. Sag ittal and coronal reformats were performed. One or more of the following dose reduction techniques were used: Automated exposure control, adjus tment of the mA and kV according to patient size, and iterative reconstruction. Unless otherwise specified, incidental findings do not require dedicated imaging follow-up. FINDINGS: Motion artifact near the vertex limits evaluation. No evidence of hydrocephalus, intracranial hemorrhage, or extra-axial fluid collection. Moderate brain atrophy with moderate periventricular and deep white matter chronic microvascular isc hemic changes present. The calvarium is intact. The visualized paranasal sinuses and mastoid air cells are essentially clear . IMPRESSION: No evidence of acute intracranial abnormality.
[2024-12-01] MEDS ORDERED: IPRATROPIUM BROM 0.5MG/2.5ML ONE (22:41)
[2024-12-01] MEDS ORDERED: ALBUTEROL 2.5 MG/3 ML NEB SOL ONE (22:41)
[2024-12-01] MEDS ORDERED: METHYLPREDNISOLONE 125 MG INJ ONE (22:41)
[2024-12-01] MEDS ORDERED: CEFTRIAXONE 1000 MG/VIAL ONE (22:41)
[2024-12-01] MEDS ORDERED: HYDRALAZINE HCL 20 MG/ML VIAL ONE ×2 (22:42→23:41)
[2024-12-01] MEDS ORDERED: NA CHLORIDE 0.9% 50 ML ONE (22:42)
[2024-12-01 22:46] LABS: PT Prothrombin Time 10.9 SECONDS (10-13.0); PTT, Activated Partial Thromb 22.3 SECONDS (27.2-37.4); Protime INR 0.95
--- NOTE | 2024-12-01 22:46 | RAD REPORT ---
EXAM: CT CHEST, ABDOMEN AND PELVIS WITHOUT CONTRAST CLINICAL INDICATION: Female, 69 years old. Confused. COUGH TECHNIQUE: CT chest, abdomen and pelvis was performed, without IV contrast, as per department protoco l. Axial, sagittal and coronal reconstructions were obtained. One or more of the following dose reduction techniques were used: Automated exposure control, adjustment of the mA and/or kV according to the patient size, and/or iterative reconstruction. Unless otherwise specified, incidental findings do not require dedicated imaging follow-up. COMPARISON: 08/09/2012 FINDINGS: The lack of intravenous contrast limits the sensitivity of this exam for evaluation of solid visceral organs, vascular structures, and retroperitoneum. Chest: LOWER NECK/CHEST WALL: Visualized thyroid gland and soft tissues are normal. LUNGS AND AIRWAYS: Left upper lobe infrahilar central consolidative opacity. Multifocal patchy ground glass opacities in the anterior right upper lobe, and basal right lower lobe. PLEURA: No pleural effusion. No pneumothorax. Hemidiaphragms are normally positioned. MEDIASTINUM AND LYMPH NODES: No mediastinal mass or fluid collection. Normal size mediastinal, hilar, and axillary lymph nodes. THORACIC AORTA: Normal caliber and configuration. PULMONARY ARTERIES: Normal caliber. HEART: Unremarkable. Abdomen/Pelvis LIVER: Normal in size and contour. No focal lesion. GALLBLADDER/BILE DUCTS: Status post cholecystectomy. PANCREAS: No mass, ductal dilation, or leonora-pancreatic fluid. SPLEEN: Normal size. No focal lesion. ADRENALS: Normal; no mass. KIDNEYS AND URETERS: Atrophic changes of both kidneys, progressive since the prior exam. Bilateral co rtical cysts, largest is transcortical of the left interpolar region measuring 3.4 cm. No hydronephrosis or radiopaque calculi. GASTROINTESTINAL TRACT: Stomach is non-dilated. Small bowel has normal course and caliber. No colonic wall thickening or pericolonic inflammatory changes. Distal colonic diverticulosis without evidence of acute diverticulitis. PERITONEUM: No free fluid. LYMPH NODES: No lymphadenopathy. ABDOMINAL AORTA AND OTHER VESSELS: Normal caliber aorta and IVC. URINARY BLADDER: Normal contour. REPRODUCTIVE ORGANS: No pathologic process. MUSCULOSKELETAL: No acute or suspicious osseous abnormality. ADDITIONAL FINDINGS: Stable supraumbilical hernia containing fat IMPRESSION: Multifocal bilateral airspace opacities as above, concerning for multifocal pneumonia. No other acute or traumatic findings. Incidental findings as above. 6
[2024-12-01 23:09] LABS: Influenza A Ag Negative; Influenza B Ag Negative; SARS-CoV-2 Antigen Rapid Res Negative (Negative)
[2024-12-01 23:25] LABS: Albumin/Globulin Ratio 0.6 (1.1-1.8); Anion Gap 13.3 mEq/L (5.0-15.0); Globulin 4.7 g/dL (2.3-3.5); Potassium 3.3 mEq/L (3.5-5.1); Protein, Total 7.7 g/dL (6.4-8.2); Troponin High Sensitivity 29.8 pg/mL (<58.9)
[2024-12-01] MEDS ORDERED: NA CHLORIDE 0.9% 250 ML ONE (23:28)
[2024-12-01] MEDS ORDERED: AZITHROMYCIN 500 MG INJ IVPB ONE (23:28)
--- NOTE | 2024-12-01 23:28 | ER ---
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 Family found me1 her at home today, naked and confused. Patient is on HD T, Th, Sat with AV fistula to RUE. States she has had a cough, body aches. Patient is anuric. Coronavirus screen: Vaccine status:. Ebola Screen: No symptoms or risks identified at this time. Initial Sepsis Screen: Does the patient meet any 2 criteria? No. Patient's initial sepsis screen is negative. Does the patient have a suspected source of infection? No. Patient's initial sepsis screen is negative. Risk Assessment: Do you want to hurt yourself or someone else? Patient reports no desire to harm self or others. Onset of symptoms is unknown. 19:12 Method Of Arrival: Wheelchair [facility] 19:12 Acuity: TIRSO 3 me1 Triage Assessment: 19:16 General: Appears ill, obese, well groomed, well developed, Behavior is cooperative, me1 appropriate for age. Pain: Denies pain. EENT: No signs and/or symptoms were reported regarding the EENT system. Neuro: Level of Consciousness is awake, alert, obeys commands, Oriented to person, situation, Appropriate for age. Cardiovascular: Patient's skin is warm and dry. Respiratory: Airway is patent Respiratory effort is even, unlabored, Respiratory pattern is regular, symmetrical. Respiratory: Reports cough that is. GI: No signs and/or symptoms were reported involving the gastrointestinal system. : Reports. : Reports anuric. Derm: Skin is intact, is healthy with good turgor, Skin is pink, warm \T\ dry. Musculoskeletal: Reports weakness in generalized. 19:16 Neuro: Reports generalized weakness. me1 Historical: - Allergies: 19:16 Clonidine; me1 - PMHx: 19:16 diabetes mellitus; HD - T/TH/Sat; me1 - PSHx: 19:16 Cholecystectomy; me1 - Immunization history:: Adult Immunizations up to date. - Infectious Disease History:: Denies. - Social history:: Smoking status: Patient reports the use of cigarette tobacco products, smokes one-half pack cigarettes per day. Screenin:20 [facility] ED Fall Risk Assessment (Adult) History of falling in the last 3 months, rg5 including since admission Confusion or Disorientation Yes (5 pts) Intoxicated or Sedated No (0 pts) Impaired Gait Yes (1 pt) Mobility Assist Device Used Yes (1 pt) Altered Elimination No (0 pt) Score/Fall Risk Level 3 or more points = High Risk Oriented to surroundings, Maintained a safe environment, Provided non-skid footwear, Hourly rounding (assess needs \T\ fall precautionary measures) done, Used ambulatory aids as needed (educated on \T\ assisted with). Abuse screen: Denies threats or abuse. Nutritional screening: No deficits noted. Tuberculosis screening: No symptoms or risk factors identified. Assessment: 19:20 General: Appears uncomfortable, Behavior is calm, cooperative, appropriate for age. rg5 19:20 Pain: Denies pain. Neuro: Level of Consciousness is awake, alert, obeys commands, rg5 Oriented to person, place, time. Cardiovascular: Denies chest pain. Respiratory: Reports shortness of breath cough that is Airway is patent Trachea midline Respiratory effort is even, Respiratory pattern is regular, symmetrical, Breath sounds with crackles bilaterally. GI: Abdomen is round obese. : No signs and/or symptoms were reported regarding the genitourinary system. EENT: Eyes with exudate noted from inner aspect of conjuctiva of right eye. Derm: Skin is intact, Skin is dry, Skin is normal, Skin temperature is warm. Musculoskeletal: Circulation, motion, and sensation intact. Range of motion: intact in all extremities. 23:00 Reassessment: No changes from previously documented assessment. Patient and/or family rg5 updated on plan of care and expected duration. Pain level reassessed. Patient is alert, oriented x 3, equal unlabored respirations, skin warm/dry/pink. 12/02 00:01 Reassessment: No changes from previously documented assessment. Patient and/or family rg5 updated on plan of care and expected duration. Pain level reassessed. Patient is alert, oriented x 3, equal unlabored respirations, skin warm/dry/pink. 01:20 Reassessment: No changes from previously documented assessment. Patient and/or family rg5 updated on plan of care and expected duration. Pain level reassessed. Patient is alert, oriented x 3, equal unlabored respirations, skin warm/dry/pink. 02:15 Reassessment: No changes from previously documented assessment. Patient and/or family rg5 updated on plan of care and expected duration. Pain level reassessed. General: Appears in no apparent distress. sleeping. 02:16 Reassessment: JELANI ASIF (brother) # [phone]. rg5 Vital Signs: 12/01 19:12 BP 199 / 81; Pulse 80; Resp 20; Temp 98.9; Pulse Ox 97% ; Height 5 ft. 0 in. ; Pain me1 0/10; 20:16 BP 192 / 90; Pulse 81; Temp 98.4; Pulse Ox 94% on R/A; rg5 21:35 BP 193 / 91; Pulse 83; Resp 19; Pulse Ox 90% on R/A; Pain 0/10; rg5 22:29 BP 241 / 89; Pulse 83; Resp 20; Pulse Ox 96% on 4 lpm NC; Pain 0/10; rg5 23:30 BP 237 / 188; Pulse 86; Resp 19; Temp 98(O); Pulse Ox 100% on 3 lpm NC; Pain 0/10; rg5 12/02 00:35 BP 181 / 101; Pulse 83; Resp 19; Pulse Ox 99% on 3 lpm NC; rg5 01:25 BP 170 / 76; Pulse 89; Resp 18; Pulse Ox 99% on 3 lpm NC; rg5 12/01 19:12 Pain Scale: Adult me1 21:35 Pain Scale: Adult rg5 22:29 Pain Scale: Adult rg5 23:30 Pain Scale: Adult rg5 ED Course: 12/01 18:42 Patient arrived in ED. al6 19:04 James Palacios PA is PHCP. cp 19:04 Willam Beasley MD is Attending Physician. cp 19:16 Arm band placed on Patient placed in waiting room. me1 19:16 Triage completed. me1 19:20 Patient has correct armband on for positive identification. Bed in low position. Call rg5 light in reach. Side rails up X2. Adult w/ patient. Client placed on continuous cardiac and pulse oximetry monitoring. NIBP monitoring applied. monitor technician on. Pulse ox on. NIBP on. Door closed. Noise minimized. Warm blanket given. 19:20 No provider procedures requiring assistance completed. rg5 19:56 Chest Single View XRAY In Process Unspecified. EDMS 20:22 John Keene, RN is Primary Nurse. rg5 21:33 Inserted saline lock: 20 gauge in left antecubital area, using aseptic technique. Blood af3 collected. Flushed with 10 mL NS. 21:34 EKG done, by process environmental technician. af3 21:59 CT Chest Abdomen Pelvis W/O Contrast In Process Unspecified. EDMS 21:59 CT Head Brain wo Cont In Process Unspecified. EDMS 23:26 Abraham Sepulveda MD is Hospitalizing Provider. cp 23:59 Wolfgang Alejandra MD is Attending Physician. 12/02 01:42 Patient admitted, IV remains in place. intact, No redness/swelling at site. [facility] 01:43 Provided Education on: needs for admit. [facility] Administered Medications: 12/01 22:40 Drug: DuoNeb Nebulize (2.5 mg - 0.5 mg) 3 ml Nebulizer once Route: Nebulizer; [facility] 12/02 01:46 Follow up: Response: No adverse reaction [facility] 12/01 22:45 Drug: MethylPrednisoLONE IVP 125 mg IVP once Route: IVP; Site: left antecubital; [facility] 12/02 01:46 Follow up: Response: No adverse reaction [facility] 12/01 22:50 Drug: hydrALAZINE IVP 10 mg IVP once Route: IVP; Site: left antecubital; [facility] 12/02 01:46 Follow up: Response: No adverse reaction; Blood pressure is unchanged [facility] 12/01 22:58 Drug: Rocephin IV 1 grams IV at calculated rate once; Given slow IV push per pharmacy [facility] instructions Route: IV; Rate: calculated rate; Site: left antecubital; 12/02 01:46 Follow up: IV Status: Completed infusion; IV Intake: 100ml [facility] 12/01 23:30 Drug: Zithromax IVPB 500 mg IVPB once over 1 hrs; mix in 250 mL NS Route: IVPB; Infused rg5 Over: 1 hrs; Site: left antecubital; 12/02 01:46 Follow up: IV Status: Completed infusion; IV Intake: 250ml rg5 12/01 23:40 Drug: hydrALAZINE IVP 10 mg IVP once; if systolic pressure >180 Route: IVP; Site: left rg5 antecubital; 12/02 01:45 Follow up: Response: No adverse reaction; Blood pressure is lowered rg5 Medication: 12/01 19:20 VIS not applicable for this client. rg5 Point of Care Testing: Blood Glucose: 21:39 Blood Glucose: 132 mg/dL; rg5 Ranges: Intake: 12/02 01:46 IV: 250ml; Total: 250ml. rg5 01:46 IV: 100ml; Total: 350ml. rg5 Outcome: 12/01 23:28 Decision to Hospitalize by Provider. cp 12/02 01:42 Admitted to Med/surg accompanied by nurse, via stretcher, with oxygen, rg5 Condition: stable Instructed on the need for admit, 03:41 Patient left the ED. rg5 Signatures: Dispatcher [employer] EDJames Rosenbaum PA PA cp Unique Taylor, RN RN me1 John Keene RN RN rg5 Debbi Herrera Alissa al6 Corrections: (The following items were deleted from the chart) 12/01 19:16 19:16 PSHx: None; me1 me1
--- NOTE | 2024-12-01 23:28 | EDPHYS ---
Physician Documentation [facility] Name: Valentine Dia Age: 69 yrs Sex: Female : 1955 Arrival Date: 12/01/2024 Time: 18:39 Bed 17 Private MD: ED Physician Wolfgang Alejandra HPI: 12/01 19:35 This 69 yrs old Black Female presents to ER via Wheelchair with complaints of Weakness, cp dehydration. Historical: - Allergies: 19:16 Clonidine; me1 - PMHx: 19:16 diabetes mellitus; HD - T/TH/Sat; me1 - PSHx: 19:16 Cholecystectomy; me1 - Immunization history:: Adult Immunizations up to date. - Infectious Disease History:: Denies. - Social history:: Smoking status: Patient reports the use of cigarette tobacco products, smokes one-half pack cigarettes per day. ROS: 19:40 Constitutional: Negative for fever, cp 19:40 Eyes: Positive for discharge, redness, of the right eye, cp 19:40 Cardiovascular: Negative for chest pain, 19:40 Respiratory: Positive for cough, "sounds productive", shortness of breath, at rest. 19:40 Abdomen/GI: Negative for abdominal pain, vomiting, diarrhea, constipation, Exam: 21:34 ECG was reviewed by the Attending Physician. cp Vital Signs: 19:12 BP 199 / 81; Pulse 80; Resp 20; Temp 98.9; Pulse Ox 97% ; Height 5 ft. 0 in. ; Pain me1 0/10; 20:16 BP 192 / 90; Pulse 81; Temp 98.4; Pulse Ox 94% on R/A; rg5 21:35 BP 193 / 91; Pulse 83; Resp 19; Pulse Ox 90% on R/A; Pain 0/10; rg5 22:29 BP 241 / 89; Pulse 83; Resp 20; Pulse Ox 96% on 4 lpm NC; Pain 0/10; rg5 23:30 BP 237 / 188; Pulse 86; Resp 19; Temp 98(O); Pulse Ox 100% on 3 lpm NC; Pain 0/10; rg5 12/02 00:35 BP 181 / 101; Pulse 83; Resp 19; Pulse Ox 99% on 3 lpm NC; rg5 01:25 BP 170 / 76; Pulse 89; Resp 18; Pulse Ox 99% on 3 lpm NC; rg5 12/01 19:12 Pain Scale: Adult me1 21:35 Pain Scale: Adult rg5 22:29 Pain Scale: Adult rg5 23:30 Pain Scale: Adult rg5 MDM: 12/01 19:27 Medical Screening Exam initiated cp 12/01 19:28 Order name: Blood Culture Adult (2) cp 12/01 19:28 Order name: CBC with Diff; Complete Time: 22:33 cp 12/01 22:33 Interpretation: Normal except: WBC 15.00; RBC 3.21; HGB 10.3; HCT 31.0; MARCI% 83.9; LYM% cp 9.3; NEUT A 12.6. 12/01 19:28 Order name: CMP; Complete Time: 23:26 cp 12/01 23:26 Interpretation: Normal except: K 3.3; GLUC 145; BUN 61; CRE 11.40; GFR 3; ALK 121; ALB cp 3.0; GLOB 4.7; A/G 0.6. 12/01 19:28 Order name: Lactate w/ 2H reflex if indic.; Complete Time: 22:33 cp 12/01 22:33 Interpretation: Reviewed. cp 12/01 19:28 Order name: Protime (+inr); Complete Time: 22:47 cp 12/01 22:49 Interpretation: Reviewed. cp 12/01 19:28 Order name: Ptt, Activated; Complete Time: 22:47 cp 12/01 22:47 Interpretation: Reviewed. cp 12/01 19:28 Order name: Troponin High Sensitivity; Complete Time: 23:26 cp 12/01 21:50 Order name: Glucose, Ancillary Testing; Complete Time: 21:52 EDMS 12/01 21:52 Interpretation: Reviewed. cp 12/01 22:36 Order name: COVID-19 Ag + Flu A+B Ag; Complete Time: 23:26 cp 12/02 03:11 Order name: Urinalysis w/ reflexes EDMS 12/02 03:11 Order name: CBC with Automated Diff EDMS 12/02 03:11 Order name: CBC with Automated Diff EDMS 12/02 03:11 Order name: Comprehensive Metabolic Panel EDMS 12/02 03:11 Order name: Comprehensive Metabolic Panel EDMS 12/01 19:28 Order name: Chest Single View XRAY; Complete Time: 20:49 cp 12/01 20:49 Interpretation: Report review. 12/01 20:51 Order name: CT Chest Abdomen Pelvis W/O Contrast; Complete Time: 22:47 12/01 20:51 Order name: CT Head Brain wo Cont; Complete Time: 22:47 cp 12/01 22:50 Interpretation: Report reviewed. 12/01 19:28 Order name: Accucheck; Complete Time: 21:58 12/01 19:28 Order name: Cardiac monitoring; Complete Time: 20:23 12/01 19:28 Order name: EKG - Nurse/Tech; Complete Time: 21:33 cp 12/01 19:28 Order name: IV Saline Lock - Large Bore; Complete Time: 21:33 12/01 19:28 Order name: Labs collected and sent; Complete Time: 21:33 cp 12/01 19:28 Order name: O2 Per Protocol; Complete Time: 20:23 cp 12/01 19:28 Order name: O2 Sat Monitoring; Complete Time: 20:23 12/01 19:28 Order name: Vital Signs; Complete Time: 20:23 12/01 22:02 Order name: Labs - recollect needed: green top and blue; Complete Time: 22:38 kmf EC:34 Rate is 84 beats/min. Rhythm is regular. TN interval is prolonged at 218 msec. QRS cp interval is prolonged at 164 msec. QT interval is normal. T waves are Inverted in leads III, aVR. Interpreted by me. Reviewed by me. Administered Medications: 22:40 Drug: DuoNeb Nebulize (2.5 mg - 0.5 mg) 3 ml Nebulizer once Route: Nebulizer; [facility] 12/02 01:46 Follow up: Response: No adverse reaction [facility] 12/01 22:45 Drug: MethylPrednisoLONE IVP 125 mg IVP once Route: IVP; Site: left antecubital; [facility] 12/02 01:46 Follow up: Response: No adverse reaction [facility] 12/01 22:50 Drug: hydrALAZINE IVP 10 mg IVP once Route: IVP; Site: left antecubital; [facility] 12/02 01:46 Follow up: Response: No adverse reaction; Blood pressure is unchanged [facility] 12/01 22:58 Drug: Rocephin IV 1 grams IV at calculated rate once; Given slow IV push per pharmacy rg5 instructions Route: IV; Rate: calculated rate; Site: left antecubital; 12/02 01:46 Follow up: IV Status: Completed infusion; IV Intake: 100ml rg5 12/01 23:30 Drug: Zithromax IVPB 500 mg IVPB once over 1 hrs; mix in 250 mL NS Route: IVPB; Infused rg5 Over: 1 hrs; Site: left antecubital; 12/02 01:46 Follow up: IV Status: Completed infusion; IV Intake: 250ml rg5 12/01 23:40 Drug: hydrALAZINE IVP 10 mg IVP once; if systolic pressure >180 Route: IVP; Site: left rg5 antecubital; 12/02 01:45 Follow up: Response: No adverse reaction; Blood pressure is lowered rg5 Point of Care Testing: Blood Glucose: 12/01 21:39 Blood Glucose: 132 mg/dL; rg5 Ranges: Critical Glucose Levels:Adult <50 mg/dl or >400 mg/dl <40 mg/dl or >180 mg/dl Disposition Summary: 12/01/24 23:28 Hospitalization Ordered Notes: Hospitalization Status: Inpatient Admission cp Provider: Abraham Sepulveda cp Location: Telemetry/MedSurg (Inpatient) cp Condition: Fair cp Problem: new cp Symptoms: have improved cp Bed/Room Type: Standard Room Assignment: 429(12/02/24 00:46) [facility] Diagnosis - Hypoxemia cp - Pneumonia, unspecified organism cp - Hypertensive heart and chronic kidney disease with heart failure and with stage 5 cp chronic kidney disease, or end stage renal disease Forms: - Medication Reconciliation Form cp - SBAR form cp - Leadership Thank You Letter cp Addendum: 12/04/2024 03:37 I was immediately available for consultation during this patient's visit. I did not e c2 personally see the patient or discuss the patient with the CAMMY. . Signatures: Dispatcher [employer] EDJames Rosenbaum PA PA cp Unique Taylor RN RN me1 Wolfgang Alejandra MD MD ec2 Elizabeth Mckoy [facility] John Keene RN RN rg5 Corrections: (The following items were deleted from the chart) 12/01 19:16 19:16 PSHx: None; me1 me1 19:28 19:28 BLOOD CULTURE*+BA.LAB.BRZ ordered. EDMS EDMS 19:28 CBC+H.LAB.BRZ ordered. EDMS EDMS 19:28 COMPREHENSIVE METABOLIC PANEL+C.LAB.BRZ ordered. EDMS EDMS 19:28 LACTATE+C.LAB.BRZ ordered. EDMS EDMS 19:28 PROTIME (+INR)+COAG.LAB.BRZ ordered. EDMS EDMS 19:28 PTT, ACTIVATED+COAG.LAB.BRZ ordered. EDMS EDMS 19:28 Troponin High Sensitivity+C.LAB.BRZ ordered. EDMS EDMS 19:28 Chest Single View+RAD.RAD.BRZ ordered. EDMS EDMS 12/02 00:46 12/01 23:28 cp kmf
[2024-12-02] MEDS ORDERED: ONDANSETRON 4 MG/2 ML VIAL IV PRN (03:06)
[2024-12-02] MEDS ORDERED: ALBUTEROL 2.5 MG/3 ML NEB SOL NEB PRN (03:06)
[2024-12-02] MEDS ORDERED: ACETAMINOPHEN 325 MG TABLET PO PRN (03:06)
--- NOTE | 2024-12-02 03:06 | P.HP ---
Certification for Inpatient Patient admitted to: Inpatient With expected LOS: >2 Midnights Practitioner: I am a practitioner with admitting privileges, knowledge of patient current condition, hospital course, and medical plan of care. Services: Services provided to patient in accordance with Admission requirements found in Title 42 Section 412.3 of the Code of Federal Regulations Patient History Date of Service: 12/02/24 Reason for admission: SOB History of Present Illness: 69-year-old female with past medical history of ESRD on HD T,,Sat, hypertension, Hyperlipidemia, and non-insulin dependent type 2 diabetes who was brought to ER with altered mental status. Patient is a poor historian hence most of the history is obtained from the chart review and also talking to the ER physician and family members.s: As per family members, patient is confused. Family found her at home today, naked and confused. Patient is on HD T, , Sat with AV fistula to RUE. States she has had a cough, body aches. Patient is anuric . Has subjective fever No sick contacts. Patient was assessed in the ER and is admitted for further management of multifocal pneumonia and fluid overload CT head was negative for any acute changes . Allergies clonidine Adverse Reaction (Verified 07/20/22 06:49) Shortness of breath Home medications list reviewed: Yes Home Medications: Aspirin [Aspir-Low] 81 mg PO DAILY 04/22/17 Furosemide 40 mg PO DAILY 04/22/17 Isosorbide Mononitrate [Isosorbide Mononitrate ER] 60 mg PO DAILY 04/22/17 Simvastatin 10 mg PO DAILY 04/22/17 carvediloL [Carvedilol] 25 mg PO TID 04/22/17 Calcitrol [Rocaltrol*] 0.25 mcg PO DAILY #30 cap 07/21/22 Calcium Acetate [Phoslo*] 2,001 mg PO TIDWM #90 tab 07/21/22 Calcium Carbonate [Tums Regular*] 500 mg PO AC #90 tab 07/21/22 - Past Medical/Surgical History Diabetic: Yes Past Medical History: Reviewed- Non-Contributory -: ESRD on HD ([place]) -: Type 2 Diabetes, Non-Insulin Dependent -: Hyperlipidemia -: Spinal Stenosis -: Hypertension Past Surgical History: Reviewed- Non-Contributory -: Left Breast Mass Excision Psychosocial/ Personal History: Patient has a son who helps take care of her. - Social History Smoking Status: Unknown if ever smoked Alcohol use: No CD- Drugs: No Caffeine use: Yes Review of Systems is unable to be obtained Physical Examination - Vital Signs Temperature: 97.8 F Blood Pressure: 138/62 Pulse: 76 Respirations: 18 Pulse Ox (%): 92 - Physical Exam General: Mild distress, Confused, Obese HEENT: Atraumatic, Normocephalic Neck: Supple Respiratory: Diminished, Crackles/rales Cardiovascular: Regular rate/rhythm, Normal S1 S2 Capillary refill: <2 Seconds Gastrointestinal: Soft and benign, W/out hepatosplenomegaly Musculoskeletal: No clubbing, Swelling Integumentary: No rashes Neurological: Other (Confused , Moves all limbs ) Lymphatics: No axilla or inguinal lymphadenopathy - Studies Laboratory Data (last 24 hrs) 12/01/24 12/01/24 12/01/24 22:31 22:31 21:35 WBC 15.00 H Hgb 10.3 L Hct 31.0 L Plt Count 175 PT 10.9 INR 0.95 APTT 22.3 L Sodium 136 Potassium 3.3 L BUN 61 H Creatinine 11.40 H Glucose 145 H Total Bilirubin 1.0 AST 21 ALT 15 Alkaline Phosphatase 121 H Assessment and Plan - Plan Acute encephalopathy possibly metabolic CT head negative for any acute changes Monitor neuro vital signs closely Multifocal pneumonia Started on IV antibiotic CT findings noted Will obtain cultures Change antibiotic as per sensitivity Hypertension Antihypertensives titrated Continue home medications and titrate as needed Hyperlipidemia Continue statin ESRD on dialysis with pulmonary edema Renal parameters monitor Nephrology consulted Electrolytes monitor and replace accordingly Diabetes Insulin sliding scale Accu-Chek before every meal and at bedtime Anemia of chronic disease Monitor H&H closely GI/DVT prophylaxis Advanced directive full code Discharge Plan: Home Plan to discharge in: 48 Hours - Advance Directives Does patient have a Living Will: Yes Does patient have a Durable POA for Healthcare: No - Code Status/Comfort Care Code Status: Full Code Time Spent Managing Pts Care (In Minutes): 54
[2024-12-02] MEDS: FUROSEMIDE 40 MG/4 ML VIAL IV SCH (05:03)
[2024-12-02] MEDS: HYDRALAZINE HCL 20 MG/ML VIAL IV PRN (05:04)
[2024-12-02] MEDS: IPRATROPIUM BROM 0.5MG/2.5ML NEB SCH (08:36)
[2024-12-02] MEDS: ALBUTEROL 2.5 MG/3 ML NEB SOL NEB SCH (08:36)
--- NOTE | 2024-12-02 11:27 | RAD REPORT ---
EXAMINATION: US RENAL ULTRASOUND CLINICAL INDICATION: Acute on chronic renal failure TECHNIQUE: Real-time ultrasonography of the abdomen was performed. COMPARISON: No prior exam. FINDINGS: Examination is limited due to patient motion difficulty holding breath. RIGHT KIDNEY: Right renal length measurement: 8.1 x 4.4 x 3.9 cm. Increased echogenicity. 5 mm stone also present. Several cysts are noted. LEFT KIDNEY: Left renal length measurement: 7.8 x 4.1 x 3.3 cm. Increased echogenicity. Multiple vary ing size cysts are present largest measuring 2.9 cm. URINARY BLADDER: Not well visualized or assessed. IMPRESSION: Echogenic kidneys as detailed compatible with underlying medical renal disease. Both kidneys mildly atrophic. No hydronephrosis.
[2024-12-02] MEDS: CEFTRIAXONE 1,000 MG in NA CHLORIDE 0.9% 50 ML IVPB SCH (11:57)
[2024-12-02] MEDS: AZITHROMYCIN IV 500 MG in NA CHLORIDE 0.9% 250 ML IVPB SCH (11:58)
[2024-12-02] MEDS: HEPARIN 5000 UNIT/ML 1 ML VIAL SQ SCH (11:58)
--- NOTE | 2024-12-02 13:21 | CON ---
Date of Consultation: 12/02/2024 Chief Complaint: Shortness of breath. Reason For Consultation: End-stage renal disease, fluid and electrolyte management. History Of Present Illness: The patient is a poor historian. History mainly obtained from the chart . This is a 69-year-old woman with past medical history of end-stage renal disease, on hemodialysis, Wednesday, , Wednesday via right upper arm AV graft, history of hypertension, hyperlipidemia, d iabetes mellitus, who came into the ER with altered mental status. The patient also noticed shortnes s of breath. Her chest x-ray showed pulmonary edema. The patient was admitted for further evaluatio n. Past Medical History: End-stage renal disease, diabetes mellitus, spinal stenosis. Past Surgical History: Left breast mass excision, AV fistula. Family History: Noncontributory. Social History: No known history of tobacco or recreational drug abuse. Review of Systems: The patient is unable to provide. At this point, she denies any pain. Physical Examination: Vital Signs: Temperature 37.9, pulse 75, blood pressure 164/74. General: Opens eyes, confused. Neck: Supple. No elevated JVD. Heart: Regular rate and rhythm. Normal S1, S2. Chest: Basal rales. Abdomen: Soft and nontender. Extremities: No edema. Labs: White count 15,000, hemoglobin 10.3. Sodium 136, potassium 3.3. Assessment And Plan: 1. End-stage renal disease. Continue dialysis, Wednesday, , Wednesday. Renal dose medication. 2. Anemia of chronic kidney disease. Hemoglobin more than 10. No need for Epogen at this time. 3. Possible pneumonia. Continue antibiotic. 4. Metabolic encephalopathy. Head CT, no significant finding. Continue dialysis and antibiotic for now. Thanks for allowing me to participate in the patient's care. Total time spent 55 minutes including d ocumentation, reviewing labs, and placing orders. JOAQUÍN/TONY Voice ID: [id number] Report ID: [id number]
[2024-12-02] MEDS: CLONIDINE 0.1 MG/PATCH TD SCH (13:38)
[2024-12-02] MEDS: AMLODIPINE 5 MG TAB PO SCH (22:17)
[2024-12-02] MEDS: ATORVASTATIN 10 MG TAB PO SCH (22:17)
[2024-12-03] MEDS: GUAIFENESIN/DM 5 ML UCUP PO PRN (01:45)
[2024-12-03 03:25] LABS: Anion Gap 13.5 mEq/L (5.0-15.0); Magnesium 2.2 mg/dL (1.6-2.4); Phosphorus 4.7 mg/dL (2.5-4.9); Potassium 3.5 mEq/L (3.5-5.1)
[2024-12-03] MEDS: VANCOMYCIN 2 GM in NA CHLORIDE 0.9% 500 ML IVPB SCH (08:50)
[2024-12-03] MEDS: ISOSORBIDE MONO SR 30 MG TAB PO SCH (08:51)
[2024-12-03] MEDS: carvediloL 25 MG TAB PO SCH (08:52)
[2024-12-03 09:10] LABS: Absolute Basophils 0.1 K/uL (0-0.5); Absolute Eosinophils 0.2 K/uL (0-0.5); Absolute Lymphocytes (CBC) 1.7 K/uL (0.7-4.9); Absolute Monocytes 0.8 K/uL (0.1-1.3); Absolute Neutrophil 13.3 K/uL (1.8-8.0); Basophils % 0.3 % (0-1.3); Eosinophils % 1.1 % (0-4.4); Hematocrit 29.7 % (36.0-45.0); Hemoglobin 9.7 g/dL (12.0-15.0); Lymphocytes % 10.5 % (15.3-44.8); MCH 31.4 pg (27.0-35.0); MCHC 32.7 g/dL (32.0-36.0); MPV 8.7 fL (7.6-11.3); Monocytes % 5.1 % (3.3-12.3); Platelets 180 thou/uL (152-406); RBC Red Blood Cell Count 3.09 M/uL (3.86-4.86); Red Cell Distribution Width 15.1 % (12.1-15.2)
[2024-12-03 09:26] LABS: AST/SGOT 12 U/L (15-37); Albumin 2.8 g/dL (3.4-5.0); Albumin/Globulin Ratio 0.6 (1.1-1.8); Alkaline Phosphatase 100 U/L (45-117); Anion Gap 13.2 mEq/L (5.0-15.0); BUN Blood Urea Nitrogen 64 mg/dL (7-18); Bicarbonate 26 mEq/L (21-32); Globulin 4.4 g/dL (2.3-3.5); Glomerular Filtration Rate 3 ml/min (=/>90); Glucose Level 116 mg/dL (74-106); Potassium 3.2 mEq/L (3.5-5.1); Protein, Total 7.2 g/dL (6.4-8.2); Sodium Level 139 mEq/L (136-145)
[2024-12-03 09:27] LABS: ALT/SGPT < 14 U/L (13-56)
--- NOTE | 2024-12-03 11:08 | P.PN ---
Subjective Date of Service: 12/03/24 Chief Complaint: Left lower lobe pneumonia blood cultures positive Subjective: Improving (Is improving doing much better today son at the bedside very alert oriented responsive) Review of Systems 10-point ROS is otherwise unremarkable General: Weakness Physical Examination - Vital Signs Temperature: 97 F Blood Pressure: 165/52 Pulse: 75 Respirations: 16 Pulse Ox (%): 94 - Physical Exam General: Alert, Oriented x3 Neck: Supple Respiratory: Clear to auscultation bilaterally Cardiovascular: No edema, Regular rate/rhythm, Normal S1 S2 Assessment And Plan - Current Problems (Diagnosis) (1) Pneumonia Current Visit: Yes Status: Acute Plan: Patient is 69 years of age was found unresponsive admitted with left lower lobe pneumonia blood cultures positive he is doing much better today very alert responsive oriented x 3 patient has end-stage renal disease on dialysis seen by nephrology I have also added vancomycin ID of the organism is pending both blood cultures are positive most likely pneumococcus blood pressure is mildly elevated oxygenation stable charge once the white count starts declining and ID of the organism is known in the blood cultures Qualifiers: Pneumonia type: due to unspecified organism Laterality: left Lung location: lower lobe of lung Qualified Code(s): J18.9 - Pneumonia, unspecified organism
[2024-12-03] MEDS: CHLORASEPTIC LOZENGES PO SCH (15:37)
--- NOTE | 2024-12-04 00:45 | P.PN ---
Subjective Date of Service: 12/04/24 Review of Systems 10-point ROS is otherwise unremarkable Physical Examination - Vital Signs Temperature: 97.9 F Blood Pressure: 166/60 Pulse: 66 Respirations: 17 Pulse Ox (%): 91 Assessment & Plan - Problems (Diagnosis) (1) Pneumonia Current Visit: Yes Status: Acute Qualifiers: Pneumonia type: due to unspecified organism Laterality: bilateral Lung location: unspecified part of lung Qualified Code(s): J18.9 - Pneumonia, unspecified organism (2) Toxic encephalopathy Current Visit: Yes Status: Acute (3) Metabolic syndrome Current Visit: Yes Status: Chronic (4) ESRD (end stage renal disease) on dialysis Current Visit: No Status: Chronic - Advance Directives Does patient have a Living Will: No Does patient have a Durable POA for Healthcare: No - Code Status/Comfort Care Code Status: Full Code
[2024-12-04] MEDS: CHLORASEPTIC LOZENGES PO PRN (02:07)
[2024-12-04 05:18] LABS: Hepatitis B surface AG Interp. Nonreactive (Nonreactive)
[2024-12-04 05:19] LABS: HBsAG Nonreactive Report Report
[2024-12-04] MEDS ORDERED: HYDRALAZINE HCL 20 MG/ML VIAL IV PRN (05:34)
[2024-12-04 06:40] LABS: Anion Gap 15.2 mEq/L (5.0-15.0); Potassium 3.2 mEq/L (3.5-5.1)
--- NOTE | 2024-12-04 17:42 | RAD REPORT ---
EXAM: Chest Single View HISTORY: 69 years Female pneumonia COMPARISON: 12/01/2024 FINDINGS: LUNGS/PLEURA: Bilateral opacities including the left upper lobe airspace disease which is similar to the prior chest CT. CARDIAC/MEDIASTINUM: Moderate cardiomegaly. UPPER ABDOMEN: No significant abnormality. BONES: No acute abnormality. LINES/TUBES/OTHER: Right upper extremity vascular stent. IMPRESSION: Left lung pneumonia similar to the prior chest CT 12/01/2024. Question mild pulmonary edema as well.
--- NOTE | 2024-12-04 22:58 | PN ---
Date of Progress Note: 12/04/2024 Chief Complaint: Shortness of breath. Subjective: The patient came to the hospital because of severe dyspnea. Chest x-ray showed pneumoni a and element of pulmonary edema. The patient received dialysis with ultrafiltration. Dyspnea is gr adually improving. The patient is to have dialysis today. She complains of some shortness of breath . Denies syncope. Chest x-ray showed resolving pulmonary edema and presence of infiltrates bilatera lly related likely to pneumonia. The patient has multiple medical problems, including spinal stenosi s, diabetes mellitus, end-stage renal disease, hypertension, hypertensive heart and kidney disease, l eft breast mass excision, AV fistula. Review of Systems: Denies fever, chills. Denies nausea or vomiting. Physical Examination: Lungs: Crackles bilaterally. Heart: S1, S2. Abdomen: Soft, benign. Extremities: Slight edema. Impression And Plan: 1. End-stage renal disease. Dialysis will be done today to obtain negative fluid balance to control fluid overload and provide management for congestive heart failure with diastolic dysfunction. The p gareth came to the hospital because of shortness of breath. She is started on antibiotics for pneumo rodolfo. Continue antibiotics per renal dose. 2. Anemia due to chronic kidney disease. Monitor hemoglobin level. Continue ÁNGEL. 3. Renal osteodystrophy. Continue renal diet and binders. EB/MODL Voice ID: [id number] Report ID: [id number]
--- NOTE | 2024-12-05 07:29 | RAD REPORT ---
Procedure: Chest Single View HISTORY: Cough COMPARISON: December 04, 2024 FINDINGS: Mild improvement in left lung opacities. Right lung appears clear of acute infiltrate. No significant pleural effusion noted. The heart remains enlarged. IMPRESSION: Mild improvement in left pneumonia
[2024-12-05 07:30] LABS: Absolute Basophils 0.1 K/uL (0-0.5); Absolute Eosinophils 0.3 K/uL (0-0.5); Absolute Lymphocytes (CBC) 1.8 K/uL (0.7-4.9); Absolute Monocytes 0.7 K/uL (0.1-1.3); Absolute Neutrophil 7.3 K/uL (1.8-8.0); Basophils % 0.7 % (0-1.3); Hematocrit 25.7 % (36.0-45.0); Hemoglobin 8.9 g/dL (12.0-15.0); Lymphocytes % 17.7 % (15.3-44.8); MCH 32.2 pg (27.0-35.0); MCHC 34.4 g/dL (32.0-36.0); MCV 93.4 fL (80-100); MPV 8.6 fL (7.6-11.3); Monocytes % 7.3 % (3.3-12.3); Neutrophils % 71.3 % (41.7-73.7); Nucleated Red Blood Cells % 0.4 % (0-0); Platelets 154 thou/uL (152-406); RBC Red Blood Cell Count 2.75 M/uL (3.86-4.86); Red Cell Distribution Width 14.9 % (12.1-15.2)
[2024-12-05 07:42] LABS: AST/SGOT 16 U/L (15-37); Albumin 2.4 g/dL (3.4-5.0); Albumin/Globulin Ratio 0.5 (1.1-1.8); Alkaline Phosphatase 86 U/L (45-117); Anion Gap 10.6 mEq/L (5.0-15.0); BUN Blood Urea Nitrogen 38 mg/dL (7-18); Bicarbonate 28 mEq/L (21-32); Globulin 4.4 g/dL (2.3-3.5); Glomerular Filtration Rate 5 ml/min (=/>90); Glucose Level 119 mg/dL (74-106); Magnesium 2.1 mg/dL (1.6-2.4); Potassium 3.6 mEq/L (3.5-5.1); Protein, Total 6.8 g/dL (6.4-8.2); Sodium Level 139 mEq/L (136-145)
[2024-12-05 07:43] LABS: ALT/SGPT < 14 U/L (13-56)
[2024-12-05] MEDS: LACTULOSE 20 GM/30 ML UCUP PO SCH (08:16)
[2024-12-05 09:14] LABS: Differential Total Cells Count 100
[2024-12-05 09:15] LABS: Atypical Lymphocytes 1 %; Blood Morphology Comment NOT SEEN (NOT SEEN); Eosinophils 3 % (0-3); Lymphocytes 18 % (15-42); Monocytes 7 % (0-10); Myelocytes 1 % (0-0); Platelet Estimate ADEQ; Segmented Neutrophils 70 % (40-80)
[2024-12-05] MEDS: CEFDINIR 300 MG CAP PO SCH (17:13)
[2024-12-05] MEDS ORDERED: VANCOMYCIN 1 GM in NA CHLORIDE 0.9% 250 ML IVPB SCH (18:00)
--- NOTE | 2024-12-06 00:38 | PN ---
Date of Progress Note: 12/05/2024 Chief Complaint: End-stage renal disease, pneumonia, congestive heart failure, pulmonary edema. Subjective: The patient received dialysis for metabolic clearance and ultrafiltration. Chest x-ray has improved. The patient is on antibiotics for pneumonia. Review of Systems: Denies new complaints. Physical Examination: Lungs: Diminished breath sounds at bases. Heart: S1, S2. Abdomen: Soft. Extremities: Minimal ankle edema bilaterally. Impression And Plan: 1. End-stage renal disease. Dialysis was done yesterday. Continue to monitor fluid balance. Contin ue dialysis 3 times per week. 2. Anemia due to chronic kidney disease. Monitor hemoglobin level. Continue ÁNGEL. 3. Hypertension. Monitor blood pressure. Adjust medication as needed. 4. Renal osteodystrophy. Continue renal diet and binders. EB/MODL Voice ID: [id number] Report ID: [id number]
[2024-12-06 06:26] VITALS: BMI 37.3
[2024-12-06 11:28] VITALS: O2SAT 96
[2024-12-06 12:03] VITALS: BP 131/77; TEMP 97.6
--- NOTE | 2024-12-06 12:25 | PN ---
Date of Progress Note: 12/06/2024 Subjective: The patient was admitted to the hospital with a diagnosis of pneumonia, shortness of breath, and cough with chills. Physical Examination: Vital Signs: When I saw the patient, blood pressure 164/79, pulse of 75, afebrile. Chest: Clear to auscultation. Heart: S1, S2. Regular. Abdomen: Soft, nontender. Extremities: No edema. Neuro: Alert. No focality. Laboratory Data: Hemoglobin 8.9. Sodium 139, potassium 3.6, bicarb 28, BUN 38, creatinine 7.3, calcium 8.5. Current Medications: The patient is on include: 1. Cefdinir. 2. Atorvastatin. 3. Carvedilol 25 b.i.d. 4. Clonidine. 5. Isosorbide. 6. Breathing treatment. Assessment And Plan: 1. End-stage renal disease, normal volume. I am going to continue the patient on her dialysis. 2. Hypertension, controlled, not optimal. We will follow up blood pressure after dialysis. In the meantime, I am going to go ahead and increase her amlodipine to 10 mg. 3. Anemia of chronic kidney disease. Continue ÁNGEL. 4. Secondary hyperparathyroidism. Resume Renvela. 5. Pneumonia as by primary. Continue current antibiotic. time spent examining the patient [id number] reviewing data lab and the radiology placing order discussing the case with the patient discussing the case with the shipping team leader including hospitalist and nursing staff more than 55-minute SOUMYA Voice ID: [id number] Report ID: [id number] RUTH
[2024-12-06] MEDS ORDERED: ALBUTEROL 2.5 MG/3 ML NEB SOL NEB PRN (13:59)
[2024-12-06] MEDS ORDERED: SEVELAMER CARBONATE 800 MG TABLET PO SCH (17:00)
[2024-12-07] MEDS ORDERED: AMLODIPINE 10 MG TAB PO SCH (09:00)
== END 2024-12-06 16:11 | disposition home health service (06) | DRG 193 ==
LOC: ER 18:39 → 4TH 12-02 03:06
PROVIDERS: ADMIT Family Medicine; ATTEND Hospitalist
PROC: 5A1D70Z Performance of Urinary Filtration, Intermittent, Less than 6 Hours Per Day (ICD-10-PCS; principal; 2024-12-02)
DX: J18.9 Pneumonia, unspecified organism (principal); G92.8 Other toxic encephalopathy; N18.6 End stage renal disease; I12.0 Hypertensive chronic kidney disease with stage 5 chronic kidney disease or end stage renal disease; E11.22 Type 2 diabetes mellitus with diabetic chronic kidney disease; D63.1 Anemia in chronic kidney disease; E86.0 Dehydration; E87.70 Fluid overload, unspecified; N25.0 Renal osteodystrophy; E78.5 Hyperlipidemia, unspecified; E66.9 Obesity, unspecified; E88.810 Metabolic syndrome; F17.210 Nicotine dependence, cigarettes, uncomplicated; Z88.8 Allergy status to other drugs, medicaments and biological substances; Z99.2 Dependence on renal dialysis; Z11.52 Encounter for screening for COVID-19; Z79.82 Long term (current) use of aspirin; Z68.38 Body mass index [BMI] 38.0-38.9, adult; Z90.49 Acquired absence of other specified parts of digestive tract; Z79.899 Other long term (current) drug therapy
CPT/HCPCS: 36415; 70450; 71045; 71250; 74176; 76770; 80048; 80053; 80202; 82947; 83605; 83735; 84100; 84145; 84484; 85025; 85610; 85730; 86706; 87040; 87205; 87340; 87428; 90935; 94640; 94760; 96365; 96366; 96375; 99285; J0360; J0696; J1644; J1940; J2919; J3370; J7040; J7050; J7613; J7644